=== PATIENT | male | born 1970 | race Caucasian/White ===

== ENCOUNTER → 2016-11-25 | Outpatient (CLI) | payer OTHER ==
[2016-11-25 11:15] LABS: CH 30.5; CHCM 32.7; HCT 50.1 % (39.0-53.0); HDW 2.41; MCV 93.8 fL (80.0-100.0); RBC 5.34 m/uL (4.30-5.90); RDW 14.1 % (11.5-15.5); WBC 5.8 k/uL (3.8-10.6)
[2016-11-25 12:00] LABS: ALT 51 U/L (21-72); AST 29 U/L (17-59); Alkaline Phosphatase 81 U/L (38-126); Anion Gap 12 mmol/L; Blood Urea Nitrogen 18 mg/dL (9-20); C Reactive Protein 15.4 mg/L (<10.0); Calcium 10.2 mg/dL (8.4-10.2); Carbon Dioxide 28 mmol/L (22-30); Chloride 102 mmol/L (98-107); Creatine Kinase 139 U/L (55-170); Glucose 158 mg/dL (74-99); Magnesium 1.7 mg/dL (1.6-2.3); Non-African American GFR(MDRD) >60 (>60 ml/min/1.73 sqM); Potassium 4.4 mmol/L (3.5-5.1); Sodium 142 mmol/L (137-145); Total Bilirubin 0.6 mg/dL (0.2-1.3); Total Protein 7.8 g/dL (6.3-8.2)
[2016-11-25 12:40] LABS: Vitamin B12 647 pg/mL (239-931)
[2016-11-25 13:48] LABS: Erythrocyte Sedimentation Rate 8 mm/hr (0-15)
[2016-11-25 14:01] LABS: Hemoglobin A1C 5.7 % (4.2-6.1)
[2016-11-26 06:08] LABS: Cyclic Citrullinated Pep IgG 10 UNITS (<20)
[2016-11-27 06:44] LABS: Vitamin E (Alpha Tocopherol) 676 ug/dL (500-1800)
[2016-12-04 07:35] LABS: Vitamin K 232 pg/mL (80-1160)
[2016-12-07 10:23] LABS: Mis test requested (Blood) Vitamin B3(Niacin)
== END | disposition home or self-care (01) ==
LOC: LABWHC1 10:38
PROVIDERS: ATTEND Psychiatry & Neurology Pain Medicine
DX: G89.4 Chronic pain syndrome (principal); M79.7 Fibromyalgia; Z79.899 Other long term (current) drug therapy
CPT/HCPCS: 36415; 80053; 82306; 82550; 82607; 83036; 83519; 83735; 84207; 84425; 84446; 84590; 84591; 84597; 85027; 85652; 86140; 86200; 86235

== ENCOUNTER → 2017-11-11 | Outpatient (CLI) | payer OTHER ==
[2017-11-11 15:49] LABS: Basophils # (A) 0.1 k/uL (0-0.2); Basophils % (A) 1 %; Eosinophils # (A) 0.3 k/uL (0-0.7); Eosinophils % (A) 2 %; HCT 42.1 % (39.0-53.0); HGB 13.2 gm/dL (13.0-17.5); Hypochromasia Slight; Lymphocytes # (A) 2.6 k/uL (1.0-4.8); Lymphocytes % (A) 17 %; MCH 28.7 pg (25.0-35.0); MCHC 31.4 g/dL (31.0-37.0); MCV 91.2 fL (80.0-100.0); Mean Platelet Volume 7.1; Monocytes # (A) 0.8 k/uL (0-1.0); Monocytes % (A) 5 %; Neutrophils # (A) 11.2 k/uL (1.3-7.7); Neutrophils % (A) 74 %; Platelet Count 499 k/uL (150-450); RBC 4.62 m/uL (4.30-5.90); RDW 14.2 % (11.5-15.5); WBC 15.2 k/uL (3.8-10.6)
[2017-11-11 16:09] LABS: Potassium 4.5 mmol/L (3.5-5.1)
[2017-11-11 17:24] LABS: Amorphous Sediment,Urine Rare /hpf; Appearance,Urine Cloudy (Clear); Bilirubin,Urine Negative (Negative); Blood,Urine Negative (Negative); Color,Urine Yellow; Glucose,Urine (UA) Negative (Negative); Hyaline Casts,Urine 552 /lpf (0-2); Ketones,Urine Trace (Negative); Leukocyte Esterase,Urine Negative (Negative); Mucus,Urine Rare /hpf; PH, Urine 5.5 (5.0-8.0); Protein,Urine 1+ (Negative); RBC,Urine 4 /hpf (0-5); Specific Gravity,Urine 1.026 (1.001-1.035); Squamous Epithelial Cell,Urine 1 /hpf (0-4); WBC,Urine 8 /hpf (0-5)
== END | disposition home or self-care (01) ==
LOC: LABPAT 15:21
PROVIDERS: ATTEND Thoracic Surgery (Cardiothoracic Vascular Surgery)
DX: Z01.812 Encounter for preprocedural laboratory examination (principal); J86.9 Pyothorax without fistula
CPT/HCPCS: 36415; 80051; 81001; 82565; 84520; 85025; 86850; 86900; 86901

== ENCOUNTER 2017-11-18 06:06 | Inpatient (IN) | payer OTHER ==
[2017-11-17 10:33] VITALS: BMI 31.1
[~2017-11-18 06:06] MED LIST: DEXAMETHASONE SOD PHOSPHATE 10 MG/ML 1 ML VIAL IV ONE; HYDROmorphone 0.5 MG/0.5 ML SYRINGE IVP PRN; LIDOCAINE 1% 20 ML VIAL (10MG/ML) FOR IV START INTRADERMA PRN; MIDAZOLAM 2 MG/2 ML VIAL IV PRN; ONDANSETRON 4 MG/2 ML VIAL IVP ONE; SCOPOLAMINE 1.5MG/72HR PATCH TRANSDERM ONE
[2017-11-18] MEDS: LACTATED RINGERS 1,000 ML IV SCH ×2 (06:52→07:30)
[2017-11-18] MEDS: fentaNYL (PF) 50 MCG/ML 2 ML AMP IV ONE ×2 (07:04→13:14)
[2017-11-18] MEDS ORDERED: MIDAZOLAM 2 MG/2 ML VIAL IV ONE (07:04)
[2017-11-18] MEDS ORDERED: LIDOCAINE 1% 20 ML VIAL (10MG/ML) FOR IV START INTRADERMA ONE (07:23)
[2017-11-18] MEDS ORDERED: NALOXONE 0.4 MG/ML 1 ML VIAL IV PRN (07:26)
[2017-11-18] MEDS ORDERED: LIDOCAINE 1% INJ 10MG/ML (20 ML MDV) ONE (08:01)
[2017-11-18] MEDS ORDERED: GLYCOPYRROLATE 0.2 MG/ML 2 ML VIAL ONE (08:01)
[2017-11-18] MEDS ORDERED: fentaNYL (PF) 50 MCG/ML 2 ML AMP ONE ×2 (08:01)
[2017-11-18] MEDS ORDERED: ETOMIDATE 2 MG/ML 10 ML VIAL ONE (08:01)
[2017-11-18] MEDS ORDERED: NEOSTIGMINE 1 MG/ML 10 ML VIAL ONE (08:01)
[2017-11-18] MEDS ORDERED: SUCCINYLCHOLINE CHLORIDE 100 MG/5 ML SYR IV ONE (08:01)
[2017-11-18] MEDS ORDERED: ROCURONIUM BROMIDE 10 MG/ML 10 ML VIAL IV ONE (08:01)
[2017-11-18] MEDS ORDERED: MIDAZOLAM 2 MG/2 ML VIAL ONE (08:01)
[2017-11-18] MEDS ORDERED: ONDANSETRON 4 MG/2 ML VIAL ONE (08:01)
[2017-11-18] MEDS ORDERED: PROPOFOL 10 MG/ML 20 ML VIAL IV ONE ×2 (08:01)
[2017-11-18] MEDS ORDERED: ePHEDrine SULFATE/0.9% NACL/PF 50 MG/5 ML SYRINGE IV ONE (08:01)
[2017-11-18] MEDS ORDERED: LACTATED RINGERS 1,000 ML IV ONE ×3 (11:37)
[2017-11-18] MEDS ORDERED: BACLOFEN 10 MG TAB PO PRN (12:01)
[2017-11-18] MEDS ORDERED: IPRATROPIUM-ALBUTEROL 3 ML NEB IH PRN (12:03)
[2017-11-18] MEDS ORDERED: ONDANSETRON 4 MG/2 ML VIAL IVP PRN (12:03)
--- NOTE | 2017-11-18 12:22 | P.OP ---
Date of Procedure: 11/18/17 Preoperative Diagnosis: Empyema left chest Postoperative Diagnosis: Same Procedure(s) Performed: Left thoracotomy, complete decortication left lung, cryoablation intercostal nerves 5, 6, 7 and 8 Anesthesia: MARIXAA Surgeon: Wayne Noonan Estimated Blood Loss (ml): 700 IV fluids (ml): 1,600 Urine output (ml): 400 Pathology: other (Pleural fluid sent for culture, pleural peel and pleural content sent for pathology, empyema sent for culture.) Condition: stable Disposition: PACU Indications for Procedure: 47-year-old male who initially got ill in May he has been feeling poorly ever since he has had chronic cough and malaise and fatigue and fever. He was found to have large loculated left pleural effusion consistent with empyema. Workup included CT. Patient was referred for evaluation. Decortication was recommended. The patient was electively admitted for the same. Operative Findings: On entering the pleural space, a large amount of loculated fluid and purulent material was encountered in the chronic empyema space. Was a very thick inflammatory wall surrounding the empyema space. The space itself was quite large. The thick inflammatory wall was densely adherent to the lung and very few good planes could be accomplished between the inflammatory wall and the pulmonary parenchyma. The inflammatory wall was quite fibrous and densely adherent as well to the chest wall and mediastinal tissues. There were adhesions present throughout the pleural space and in the fissures. Excellent reexpansion of the lung was accomplished after complete decortication. Description of Procedure: The patient was brought to the operating room placed supine on the operating table anesthetized and intubated. Double lumen endotracheal tube was placed and positioned with fiberoptic bronchoscopy and secured. Patient was turned into the right lateral decubitus position and the left chest sterilely prepped and draped. Posterior lateral thoracotomy incision was performed. The latissimus muscle was divided and the posterior portion of the serratus anterior muscle was divided. Ribs were counted and the chest was entered in the sixth interspace. On entering the chest we encountered a large amount of very turbid fluid which had large amounts of. 1 material floating within it. We undercut the intercostal muscles anteriorly and posteriorly to allow adequate spreading of the ribs and freed the inflammatory wall of the empyema from the chest wall in order to allow adequate spreading of the ribs. Once we had the chest open we were able to clear out the empyema space of all the fluid and purulent material present within it. We then began the tedious process of resecting the entire empyema wall. This required primarily resection with sharp dissection and electrocautery. We were eventually able to completely resect the empyema wall and get the lower lobe and lingula to reexpand. We then took down the remaining adhesions in the chest cavity in order to allow the lung to be fully mobilized including in the fissures. The lung expanded well and filled the chest well. There went on single lung ventilation and performed cryoablation at intercostal nerves V 67 and 8 with the [employer] ice system. 3 chest tubes were placed in the chest. The anterior chest tube 32 -Mongolian was placed to the apex a posterior 32-Mongolian was placed to the apex and a third chest tube was placed along the diaphragm into the diaphragmatic sulcus is a 32 right angle. Chest tubes were secured with 0 Ethibond. The chest was irrigated out with warm water and the ribs reapproximated with #1 Vicryl. The muscle layers with 0 Vicryl. The subcutaneous and subcuticular layers with layers of Vicryl suture. Dressings were applied the patient was turned supine and extubated and transferred to recovery room in stable condition. Portion of the empyema. 1 material was sent for culture. Some of the empyema fluid was collected and sent for culture. All of the remaining tissue removed from the chest was sent for pathology as pleural peel and left pleural content.
[2017-11-18] MEDS: BUPIVACAINE (PF) 0.5% 31.3 ML, fentaNYL (PF) 1,250 MCG in SODIUM CHLORIDE 0.9% 194 ML EPIDURAL PRN (12:35)
--- NOTE | 2017-11-18 12:49 | XR ---
EXAMINATION TYPE: XR chest 1V DATE OF EXAM: 11/18/2017 COMPARISON: Prior chest dated 10/20/2017, 11/04/2017 HISTORY: Status post VATS TECHNIQUE: Single frontal view of the chest is obtained. FINDINGS: There is been interval placement of 2 left-sided chest tubes. Azygos lobe noted incidental ly in the right. Improvement in the abnormal density at the left lung base. Subcutaneous emphysema is present. No sizable pneumothorax. Lung volumes are low, there is likely basilar atelectasis on the r ight. Heart size is likely stable, patient is rotated. IMPRESSION: Postop changes.
[2017-11-18] MEDS: MORPHINE SULFATE 4 MG/ML SYRINGE IV ONE ×2 (12:56→13:24)
[2017-11-18] MEDS: MEPERIDINE 50 MG/ML SYRINGE IVP ONE ×2 (13:34→13:45)
[2017-11-18] MEDS: DEXTROSE 5%-0.45% NACL 1,000 ML IV SCH (14:51)
--- NOTE | 2017-11-18 15:46 | P.CNPUL ---
History of Present Illness Consult date: 11/18/17 Chief complaint: Empyema, post thoracotomy History of present illness: 47-year-old male patient was recently treated as an inpatient basis for pneumonia and he was treated and his course was complicated by development of a complex parapneumonic effusion/empyema that was loculated in the left lung. The patient was seen in our office and patient was referred to thoracic surgery and the patient underwent a left thoracotomy and complete decortication of the left lung with cryoablation intercostal nerves V 678. Estimated blood loss was 700 mL. IV fluids infused was 1600 mL. The patient had a total of 3 chest tubes inserted to posterior 100. And cultures were sent. An epidural fentanyl with bupivacaine was offered to an epidural catheter for pain control and following that the patient was extubated and the patient was brought in to the medical surgical floor for further evaluation and recuperation. At a time of my evaluation the patient's pain was under good control. He was off these of oxygen nasal cannula. He was hemodynamic is stable. Output from the chest was around 1 20 mL and the posterior chest tubes are showing some limited amount of air leak that was episodic in nature. Meanwhile the chest x-ray showed adequate expansion of the left lung. There is improvement in aeration of the left lung base. Right lung remained clear. The patient is awake and alert and following commands. He has no specific complaints. Intraoperatively, the patient was found to have a large amount of loculated fluid and purulent material and chronic empyema in the left lung. This was very thickened inflammatory and it was adherent to the lung with very few with plans in between the inflammatory wall in the lung parenchyma. Adhesions were also present. Decortication was done and the patient achieved excellent reexpansion of the left lung after complete decortication. Review of Systems All systems: negative Eyes: denies blurred vision, denies bulging eye, denies decreased vision Ears: deny: decreased hearing, ear discharge, earache Ears, nose, mouth and throat: Denies headache, Denies sore throat Cardiovascular: Reports dyspnea on exertion Respiratory: Reports dyspnea Gastrointestinal: Denies abdominal pain, Denies diarrhea, Denies nausea, Denies vomiting Genitourinary: Reports as per HPI Musculoskeletal: Reports as per HPI (Chronic pain related to osteoarthritis and fibromyalgia patient also complains of chronic back pain.), Reports low back pain, Reports myalgias Musculoskeletal: absent: ankle pain, ankle stiffness, ankle swelling Integumentary: Denies pruritus, Denies rash Neurological: Denies numbness, Denies weakness Psychiatric: Denies anxiety, Denies depression Endocrine: Denies fatigue, Denies weight change Allergic/Immunologic: Reports as per HPI Past Medical History Past Medical History: Chest Pain / Angina, Fibromyalgia, Hyperlipidemia, Hypertension, Pneumonia, Respiratory Disorder Additional Past Medical History / Comment(s): Left lung pneumonia/empyema, gout , chronic fibromyalgia, chronic lower back pain, degenerative arthritis, history of degenerative disc disease involving the lumbar spine, hypertension, hyperlipidemia, atrial fibrillation as the patient went into atrial fibrillation during her hospitalization for a left lower lobe pneumonia back in October 2017 and subsequently he converted back to normal sinus. Echocardiogram done preoperatively showed a preserved LV function. He has chronic anxiety. History of Any Multi-Drug Resistant Organisms: None Reported Past Surgical History: Back Surgery, Joint Replacement, Orthopedic Surgery Additional Past Surgical History / Comment(s): rt hip replacement, rt knee replacement, left knee surgery with metal, neck fusion, lower back surgery, traumatic amputation rt index finger, left index finger tip amputation from injury Past Anesthesia/Blood Transfusion Reactions: Blood Transfusion Reaction Additional Past Anesthesia/Blood Transfusion Reaction / Comment(s): pt states some limited neck movement due to previous surgery, " I got degenerative bone disease from a blood transfusion", "I woke up in the middle of knee surgery" Smoking Status: Former smoker - Past Family History Mother Family Medical History: No Reported History Additional Family Medical History / Comment(s): enlarged heart Medications and Allergies Home Medications Medication Instructions Recorded Confirmed Type DULoxetine HCL [Cymbalta] 60 mg PO BID 10/17/17 11/18/17 History Fenofibrate 160 mg PO DAILY 10/17/17 11/18/17 History HYDROcodone/APAP 5-325MG [[place] 1 tab PO BID 10/17/17 11/18/17 History 5-325] Lisinopril-Hctz 20-25 mg 1 tab PO DAILY 10/17/17 11/18/17 History [Zestoretic 20-25] Naproxen [Naprosyn] 500 mg PO BID PRN 10/17/17 11/18/17 History busPIRone HCL 15 mg PO BID 10/17/17 11/18/17 History oxyCODONE ER [OxyCONTIN] 20 mg PO Q12HR 10/17/17 11/18/17 History Aspirin 81 mg PO DAILY chew 10/22/17 11/18/17 Rx Baclofen [Lioresal] 5 mg PO TID PRN #40 tablet 10/22/17 11/18/17 Rx Diltiazem Oral [Cardizem*] 90 mg PO TID #90 tab 10/22/17 11/18/17 Rx Nicotine 14Mg/24Hr Patch [Habitrol] 1 patch TRANSDERM DAILY #30 patch 10/22/17 11/18/17 Rx Pregabalin [Lyrica] 150 mg PO BID #60 cap 10/22/17 11/18/17 Rx risperiDONE 0.5 mg PO TID #21 tablet 10/22/17 11/18/17 Rx Cholecalciferol (Vitamin D3) 2,000 unit PO DAILY 11/17/17 11/18/17 History [Vitamin D3] Ipratropium-Albuterol Nebulize 3 ml INHALATION RT-QID 11/17/17 11/18/17 History [Duoneb 0.5 mg-3 mg/3 ml Soln] guaiFENesin [Mucinex] 1,200 mg PO BID 11/17/17 11/18/17 History Allergies Allergy/AdvReac Type Severity Reaction Status Date / Time No Known Allergies Allergy Verified 11/18/17 12:28 Physical Exam Vitals: Vital Signs Temp Pulse Resp BP Pulse Ox 11/18/17 13:45 88 16 95/43 94 L 11/18/17 13:30 89 16 93/52 94 L 11/18/17 13:15 89 16 89/50 94 L 11/18/17 13:00 90 20 90/50 94 L 11/18/17 12:45 93 18 98/57 95 11/18/17 12:30 95 16 101/44 94 L 11/18/17 12:11 97.6 F 90 23 133/41 96 11/18/17 06:53 97.7 F 84 18 144/74 96 Intake and Output 11/18/17 11/18/17 11/18/17 06:59 14:59 22:59 Intake Total 300 3000 Output Total 1535 Balance 300 1465 Intake: IV 300 2750 Intake, IV Titration 250 Amount Dextrose 5%-0.45% NaCl 1, 200 000 ml @ 40 mls/hr IV . Q24H [facility] Rx#:[id number] ceFAZolin 3 gm In Sodium 50 Chloride 0.9% 50 ml @ 100 mls/hr IVPB Q8HR [facility] Rx# :[id number] Output: Urine 525 Estimated Blood Loss 1010 Head exam was generally normal. There was no scleral icterus or corneal arcus. Mucous membranes were moist.Neck was supple and without jugular venous distension, thyromegaly, or carotid bruits. Carotids were easily palpable bilaterally. There was no adenopathy. Lung sounds are diminished in the left lung compared to the right and the patient's surgical incision site is dry clean and intact and the chest tubes are all in place. 2 posterior one anterior chest tube can be localized attached to the Pleur-evac.Cardiac exam revealed the PMI to be normally situated and sized. The rhythm was regular and no extrasystoles were noted during several minutes of auscultation. The first and second heart sounds were normal and physiologic splitting of the second heart sound was noted. There were no murmurs, rubs, clicks, or gallops.Abdominal exam revealed normal bowel sounds. The abdomen was soft, non- tender, and without masses, organomegaly, or appreciable enlargement of the abdominal aorta.Examination of the extremities revealed easily palpable radial, femoral and pedal pulses. There was no cyanosis, clubbing or edema.Examination of the skin revealed no evidence of significant rashes, suspicious appearing nevi or other concerning lesions. Neurologically patient is awake and alert and there is no focal neurological deficit at this point. The patient also has a epidural catheter for pain control. Results - Diagnostic Findings Chest x-ray: image reviewed Assessment and Plan Plan: Assessment 1 left lung empyema status post thoracotomy and decortication the patient is postop day #0. Patient is currently recovering on the medical surgical floor. Epidural fentanyl bupivacaine for pain control. Hemodynamically stable. 3 chest tubes of the left hemithorax to posterior 1 anterior. No active output. Minimal air leak through the posterior chest tubes 2 recent hospitalization for left lung pneumonia 3 acute hypoxic respiratory failure secondary to left lung empyema and pneumonia 4 chronic pain 5 fibromyalgia 6 degenerative arthritis 7 single bout of atrial fibrillation recovered and the patient's rhythm is back to sinus 8 hypertension 9 hyperlipidemia 10 smoker Plan Continue using incentive spirometer. Pain control with epidural fentanyl with bupivacaine. Proceed with resuming the patient's outpatient medication including his oxycodone 20 mg twice a day. Pain is under good control. Chest x -ray was reviewed and the patient has adequate expansion of the left lung. Chest tubes are in place. Monitor the output. Monitor air leaks. Continue DuoNeb nebulized she was around the clock. IV cefazolin. Intraoperative cultures were sent and antibiotic adjustments will be done if needed should the cultures come back negative. We'll continue to follow.
[2017-11-18] MEDS: DILTIAZEM ORAL 30 MG TAB PO SCH ×2 (15:48→20:36)
[2017-11-18] MEDS: HEPARIN SODIUM,PORCINE 5,000 UNIT/ML 1 ML VIAL SQ SCH ×2 (15:49→22:52)
[2017-11-18] MEDS: risperiDONE 0.5 MG TAB PO SCH ×2 (15:49→20:37)
[2017-11-18] MEDS ORDERED: IPRATROPIUM-ALBUTEROL 3 ML NEB IH SCH (16:00)
[2017-11-18] MEDS: IPRATROPIUM-ALBUTEROL 3 ML NEB INHALATION SCH ×3 (16:02→19:18)
[2017-11-18] MEDS: MORPHINE SULFATE 4 MG/ML SYRINGE IVP PRN ×2 (17:02→22:49)
[2017-11-18] MEDS: guaiFENesin 600 MG TABLET.ER PO SCH (20:35)
[2017-11-18] MEDS: DULoxetine HCL 60 MG CAPSULE.DR PO SCH (20:35)
[2017-11-18] MEDS: busPIRone HCl 5 MG TAB PO SCH (20:35)
[2017-11-18] MEDS: PREGABALIN 75 MG CAP PO SCH (20:36)
[2017-11-18] MEDS: oxyCODONE ER 20 MG TAB.ER.12H PO SCH (20:36)
[2017-11-19 06:53] LABS: Calcium 8.5 mg/dL (8.4-10.2); Potassium 4.7 mmol/L (3.5-5.1); Total Bilirubin 0.4 mg/dL (0.2-1.3); Total Protein 5.9 g/dL (6.3-8.2)
[2017-11-19 07:06] LABS: Basophils % (A) 0 %; Eosinophils % (A) 0 %; HCT 32.3 % (39.0-53.0); HGB 10.8 gm/dL (13.0-17.5); Lymphocytes # (A) 1.6 k/uL (1.0-4.8); Lymphocytes % (A) 10 %; MCH 29.1 pg (25.0-35.0); MCHC 33.4 g/dL (31.0-37.0); MCV 87.2 fL (80.0-100.0); Mean Platelet Volume 7.9; Monocytes # (A) 0.9 k/uL (0-1.0); Monocytes % (A) 5 %; Neutrophils # (A) 13.9 k/uL (1.3-7.7); Neutrophils % (A) 83 %; Platelet Count 353 k/uL (150-450); RBC 3.71 m/uL (4.30-5.90); RDW 14.7 % (11.5-15.5); WBC 16.7 k/uL (3.8-10.6)
[2017-11-19] MEDS: NICOTINE 14MG/24HR PATCH TRANSDERM SCH (07:46)
[2017-11-19] MEDS: guaiFENesin 600 MG TABLET.ER PO SCH ×2 (07:47→21:06)
[2017-11-19] MEDS: DILTIAZEM ORAL 30 MG TAB PO SCH ×3 (07:48→22:52)
[2017-11-19] MEDS: risperiDONE 0.5 MG TAB PO SCH ×3 (07:49→22:52)
[2017-11-19] MEDS: HEPARIN SODIUM,PORCINE 5,000 UNIT/ML 1 ML VIAL SQ SCH ×3 (07:49→22:52)
[2017-11-19] MEDS: busPIRone HCl 5 MG TAB PO SCH ×2 (07:49→21:05)
[2017-11-19] MEDS: CHOLECALCIFEROL 1,000 UNIT TAB PO SCH (07:49)
[2017-11-19] MEDS: ASPIRIN 81 MG PO SCH (07:50)
[2017-11-19] MEDS: DULoxetine HCL 60 MG CAPSULE.DR PO SCH ×2 (07:50→21:06)
[2017-11-19] MEDS: FENOFIBRATE 160 MG TAB PO SCH (07:50)
[2017-11-19] MEDS: PREGABALIN 75 MG CAP PO SCH ×2 (07:57→21:07)
[2017-11-19] MEDS: MORPHINE SULFATE 4 MG/ML SYRINGE IVP PRN ×4 (07:57→22:54)
--- NOTE | 2017-11-19 08:22 | XR ---
EXAMINATION TYPE: XR chest 1V DATE OF EXAM: 11/19/2017 COMPARISON: Prior chest x-ray 11/18/2017 HISTORY: Post VATS with chest tube TECHNIQUE: Single frontal view of the chest is obtained. FINDINGS: Patient is rotated. Left-sided chest tubes remain in place. Subcutaneous emphysema is note d. Patchy basilar density is noted on the right and left. Heart size is stable. IMPRESSION: Postprocedural findings, atelectasis, possible small effusion. No significant interval c hange. Rotated exam.
[2017-11-19] MEDS: oxyCODONE ER 20 MG TAB.ER.12H PO SCH ×2 (08:58→21:07)
[2017-11-19] MEDS: BUPIVACAINE (PF) 0.5% 31.3 ML, fentaNYL (PF) 1,250 MCG in SODIUM CHLORIDE 0.9% 194 ML EPIDURAL PRN (08:59)
[2017-11-19] MEDS ORDERED: LISINOPRIL-HCTZ 20-25 MG 1 EACH TAB PO SCH (09:00)
--- NOTE | 2017-11-19 09:12 | P.PN ---
Progress Note - Text 11/19 720am 47-year-old male status post thoracotomy by Dr. Noonan. Postop day #1 patient has epidural solution running at 10 mL an hour, VAS score of 4 at rest. No motor or sensory weakness. Continue epidural infusion
[2017-11-19] MEDS: IPRATROPIUM-ALBUTEROL 3 ML NEB INHALATION SCH ×4 (09:14→20:54)
[2017-11-19] MEDS: DEXTROSE 5%-0.45% NACL 1,000 ML IV SCH (12:33)
--- NOTE | 2017-11-19 12:51 | P.PN ---
Subjective Progress Note Date: 11/19/17 Principal diagnosis: Empyema left chest, hypertension, hyperlipidemia, recent left lung pneumonia, chronic fibromyalgia, gout, degenerative arthritis, degenerative disc disease involving the lumbar spine, history of paroxysmal atrial fibrillation, history of nicotine dependence and chronic anxiety. POD #1 Left thoracotomy, complete decortication left lung, cryoablation intercostal nerves 5, 6, 7 and 8. The patient is laying in bed with his head elevated. He is in no acute distress. He is alert and oriented 3. He is complaining of left chest pain where his chest tubes are inserted. He rates his pain currently 9 or 10 out of 10 on the pain scale. His epidural is intact and currently running at 10 mL per hour. Oxygen saturation are 95% on 2 L nasal cannula. He is using his incentive spirometry and is achieving 1500 mL with encouragement. Objective - Vital Signs Vital signs: Vital Signs Temp 97.6 F 11/19/17 11:32 Pulse 88 11/19/17 11:33 Resp 20 11/19/17 11:33 BP 117/55 11/19/17 11:32 Pulse Ox 95 11/19/17 11:32 Intake & Output 11/18/17 11/19/17 11/19/17 18:59 06:59 18:59 Intake Total 3529.533 774.1 384.367 Output Total 1535 799 335 Balance 1994.533 -24.9 49.367 Weight 132 kg Intake: IV 2750 640 Dextrose 5%-0.45% NaCl 1, 640 000 ml @ 40 mls/hr IV . Q24H [facility] Rx#:[id number] Intake, IV Titration 291.533 134.1 24.367 Amount Bupivacaine (Pf) 0.5% 31. 41.533 134.1 24.367 3 ml fentaNYL (PF) 1,250 mcg In Sodium Chloride 0. 9% 194 ml @ Per Protocol EPIDURAL .Q0M PRN Rx#: [id number] Dextrose 5%-0.45% NaCl 1, 200 000 ml @ 40 mls/hr IV . Q24H [facility] Rx#:[id number] ceFAZolin 3 gm In Sodium 50 Chloride 0.9% 50 ml @ 100 mls/hr IVPB Q8HR [facility] Rx# :[id number] Oral 488 360 Output: Chest Tube Drainage 199 10 Left Anterior Chest 97 10 Left Posterior Chest 102 0 Urine 525 600 325 Uretheral (Gamez) 325 Estimated Blood Loss 1010 Other: Voiding Method Indwelling Catheter Indwelling Catheter Urinal - Constitutional General appearance: Present: cooperative, no acute distress, obese - EENT ENT: Present: hearing grossly normal - Neck Details: Neck is supple, no JVD or lymphadenopathy. - Respiratory Details: Lung sounds are essentially clear to his right lobes, diminished to his left lobes. Respirations are symmetrical and nonlabored. Left pleural chest tubes intact to low continuous wall suction once 20 cm H2O. Draining thin serosanguineous drainage. Anterior chest tube without air leak, posterior chest tubes with air leak present. Anterior chest tube drained 65 mL output in the last 8 hours, 450 mL since surgery. Posterior chest tubes drained 40 mL in the last 8 hours, and 190 mL output since surgery. He is achieving 1500 mL on his incentive spirometry with encouragement. - Cardiovascular Details: Regular rhythm and rate. S1 and S2 present, negative for S3, gallop or murmur. Remote telemetry showing normal sinus rhythm heart rate 83. No edema present. Knee-high sequential compression devices in place to his bilateral lower extremities. - Gastrointestinal Gastrointestinal Comment(s): Abdomen is soft, nontender and nondistended. Obese. Tolerating oral intake. Active bowel sounds all 4 abdominal quadrants. - Genitourinary Genitourinary Comment(s): Gamez catheter for accurate I&O. Clear farhat urine. 725 mL output in the last 8 hours. - Integumentary Integumentary Comment(s): Skin is warm, and dry. No clubbing or cyanosis. Left lateral chest incision clean dry and well approximated. No drainage present. Dressings clean and dry. Epidural dressing clean and dry. - Neurologic Neurologic Comment(s): Epidural site clean and dry. No motor or sensory weakness present. Neurologic: Present: CNII-XII intact - Musculoskeletal Musculoskeletal: Present: strength equal bilaterally - Psychiatric Psychiatric: Present: A&O x's 3, appropriate affect, intact judgment & insight - Allied health notes Allied health notes reviewed: nursing - Labs CBC & Chem 7: 11/19/17 05:22 11/19/17 05:22 Labs: Abnormal Lab Results - Last 24 Hours (Table) 11/19/17 11/19/17 Range/Units 05:22 05:22 WBC 16.7 H (3.8-10.6) k/uL RBC 3.71 L (4.30-5.90) m/uL Hgb 10.8 L (13.0-17.5) gm/dL Hct 32.3 L (39.0-53.0) % Neutrophils # 13.9 H (1.3-7.7) k/uL Sodium 135 L (137-145) mmol/L BUN 42 H (9-20) mg/dL Creatinine 1.82 H (0.66-1.25) mg/dL Glucose 118 H (74-99) mg/dL Total Protein 5.9 L (6.3-8.2) g/dL Albumin 3.0 L (3.5-5.0) g/dL Microbiology - Last 24 Hours (Table) 11/18/17 11:30 Gram Stain - Preliminary Pleural Fluid Body Fluid Culture - Preliminary 11/18/17 09:02 Gram Stain - Preliminary Lung - Left Tissue Culture - Preliminary 11/18/17 11:30 Fungal Culture - Preliminary Pleural Fluid 11/18/17 11:30 Anaerobic Culture - Preliminary Pleural Fluid 11/18/17 09:02 Anaerobic Culture - Preliminary Lung - Left - Imaging and Cardiology Chest x-ray: report reviewed, image reviewed Assessment and Plan (1) Fibromyalgia Current Visit: Yes Status: Acute Code(s): M79.7 - FIBROMYALGIA SNOMED Code (s): 419815045 (2) Chronic pain Current Visit: Yes Status: Acute Code(s): G89.29 - OTHER CHRONIC PAIN SNOMED Code(s): 71333077 (3) Degenerative arthritis Current Visit: Yes Status: Acute Code(s): M19.90 - UNSPECIFIED OSTEOARTHRITIS, UNSPECIFIED SITE SNOMED Code(s): 268189220 (4) History of atrial fibrillation Current Visit: Yes Status: Acute Code(s): Z86.79 - PERSONAL HISTORY OF OTHER DISEASES OF THE CIRCULATORY SYSTEM SNOMED Code(s): 518556731 (5) Hypertension Current Visit: Yes Status: Acute Code(s): I10 - ESSENTIAL (PRIMARY) HYPERTENSION SNOMED Code(s): 14638176 (6) Hyperlipidemia Current Visit: Yes Status: Acute Code(s): E78.5 - HYPERLIPIDEMIA, UNSPECIFIED SNOMED Code(s): 25479267 (7) History of pneumonia Current Visit: Yes Status: Acute Code(s): Z87.01 - PERSONAL HISTORY OF PNEUMONIA (RECURRENT) SNOMED Code(s): 132176554 (8) Empyema, left Current Visit: Yes Status: Acute Code(s): J86.9 - PYOTHORAX WITHOUT FISTULA SNOMED Code(s): 78929148 (9) Elevated serum creatinine Current Visit: Yes Status: Acute Code(s): R79.89 - OTHER SPECIFIED ABNORMAL FINDINGS OF BLOOD CHEMISTRY SNOMED Code(s): 292589954 Plan: 1. Pain control per when necessary orders and epidural management per anesthesia recommendations. 2. Medical management per Dr. Chiu. 3. Encourage use of his incentive spirometry every hour while awake. 4. Pulmonary recommendations per Dr. Abel. 5. Wean oxygen as tolerated to keep oxygen saturations greater than or equal to 91%. 6. Keep left pleural chest tubes to low continuous wall suction today at -20 cm H2O. Continue to record accurate I&O's. 7. DVT and GI prophylaxis. 8. We will monitor daily labs and chest x-rays. 9. Surgical specimen pathology results pending. 10. Increase activity as tolerated, physical therapy consulted. 11. More recommendations to follow as patient progresses in his care. Time with Patient: Greater than 30
[2017-11-19] MEDS: LACTATED RINGERS 1,000 ML IV SCH ×2 (16:23→22:58)
--- NOTE | 2017-11-19 17:00 | CONS ---
CONSULTATION DATE OF CONSULTATION: 11/19/2017 REASON FOR CONSULTATION: Medical management requested by Dr. Noonan. CONSULTATION: This is a 47-year-old patient who was here in the hospital and discharged on October 22. The patient at that time was admitted with left lower lobe pneumonia and also had an effusion. Patient was seen by Dr. Gaston on that admission. The patient was offered a chest tube, but the patient declined the same. The patient did follow up in the office and was seen by Beth Hsu NP. The patient continued to bring up sputum. The patient was found to have a large empyema and subsequently has now undergone decortication with a chest tube in place. The patient's other chronic stable medical conditions include atrial fibrillation, fibromyalgia, hypertension. The patient also has chronic pain syndrome, for which he takes pain medications. REVIEW OF SYSTEMS: CONSTITUTIONAL: Tired. HEENT: None. RESPIRATORY: Short of breath, cough. Some yellow-green sputum production. CARDIOVASCULAR: None. GASTROINTESTINAL: None. GENITOURINARY: None. MUSCULOSKELETAL: Chronic pain in different joints. DERMATOLOGICAL: None. HEMATOLOGICAL: None. LYMPHATICS: None. PSYCHIATRY: None. NEUROLOGICAL: None. PAST MEDICAL HISTORY: 1. Fibromyalgia. 2. COPD. 3. Atrial fibrillation. 4. Chronic pain syndrome. 5. Essential hypertension. PAST SURGICAL HISTORY: 1. Back surgery. 2. Bilateral knee surgery. 3. Left hip surgery. 4. Right shoulder surgery. SOCIAL HISTORY: Lives with his mother. Smoking a pack a day for many years. Denies alcohol. Not employed. FAMILY HISTORY: Enlarged heart. HOME MEDICATIONS: 1. Risperdal 0.5 mg p.o. t.i.d. 2. OxyContin 20 mg p.o. q.12. 3. Mucinex 1200 mg p.o. b.i.d. 4. Buspirone 50 mg p.o. b.i.d. 5. Lyrica 150 mg p.o. b.i.d. 6. Nicotine 14 mg patch. 7. Naproxen 500 mg p.o. b.i.d. p.r.n. 8. Zestoretic 20/25 one tablet p.o. daily. 9. DuoNeb q.i.d. 10.Hart[place] 5 one tablet b.i.d. 11.Tricor 160 mg p.o. daily. 12.Cardizem 90 mg t.i.d. 13.Cymbalta 60 mg p.o. b.i.d. 14.Vitamin D3 2000 units p.o. daily. 15.Baclofen 5 mg p.o. t.i.d. p.r.n. 16.Aspirin 81 mg p.o. daily. ALLERGIES: NONE. PHYSICAL EXAMINATION: Temperature 97.6, pulse 80, respiration 20, blood pressure 117/55, pulse ox 95% on 2 L. GENERAL APPEARANCE: Well built, BMI 36. Lying in bed. Anxious-appearing. EYES: Pupils equal. Conjunctivae normal. HEENT: External appearance of nose and ears normal. Oral cavity normal. NECK: JVD unable to assess. Mass not palpable. RESPIRATORY: Effort increased. LUNGS: Diminished breath sounds. Prolonged expiration. Chest tube in the left side. CARDIOVASCULAR: Heart sounds irregular. There is no edema. ABDOMEN: Soft, nontender. Liver and spleen not palpable. LYMPHATIC: No lymph node palpable in neck or axillae. PSYCHIATRY: Alert, oriented x3. Mood and affect normal. NEUROLOGICAL: Pupils equal. Cranial nerves grossly intact. Power and sensation grossly intact. INVESTIGATIONS: White count 16.7, hemoglobin 10.8, potassium 4.7. BUN 42, creatinine 1.82. Patient's BUN and creatinine on 10/20/2017 were 33 and 1.0 and on 11/11/2017 they were 20 and 1.70. ASSESSMENT: 1. Left lung decortication secondary to empyema. 2. Chronic obstructive pulmonary disease in a smoker. 3. Persistent atrial fibrillation. 4. Chronic fibromyalgia. 5. Obesity; body mass index greater than 35. 6. Chronic pain syndrome. 7. Essential hypertension. 8. Acute renal failure. Patient's creatinine was down to 1 on 10/20/2017 and has now gone up. This could be a contribution from prerenal, and patient is also on PHYLLIS inhibitor and diuretic. 9. Hypoalbuminemia as an acute phase reactant. PLAN: The patient will be started on IV fluids. Will hold off patient's Zestoretic for right now. Other home medications are resumed. The patient is on pain medications. Eventually patient should be able to go back to his home pain medications. This was discussed with the patient. In the meantime, patient is getting his DuoNeb and other medications. Thank you, Dr. Noonan. HERRERA / RICK: [id number] /
--- NOTE | 2017-11-19 17:21 | P.PN ---
Subjective Progress Note Date: 11/19/17 47-year-old male patient was recently treated as an inpatient basis for pneumonia and he was treated and his course was complicated by development of a complex parapneumonic effusion/empyema that was loculated in the left lung. The patient was seen in our office and patient was referred to thoracic surgery and the patient underwent a left thoracotomy and complete decortication of the left lung with cryoablation intercostal nerves V 678. Estimated blood loss was 700 mL. IV fluids infused was 1600 mL. The patient had a total of 3 chest tubes inserted to posterior 100. And cultures were sent. An epidural fentanyl with bupivacaine was offered to an epidural catheter for pain control and following that the patient was extubated and the patient was brought in to the medical surgical floor for further evaluation and recuperation. At a time of my evaluation the patient's pain was under good control. He was off these of oxygen nasal cannula. He was hemodynamic is stable. Output from the chest was around 1 20 mL and the posterior chest tubes are showing some limited amount of air leak that was episodic in nature. Meanwhile the chest x-ray showed adequate expansion of the left lung. There is improvement in aeration of the left lung base. Right lung remained clear. The patient is awake and alert and following commands. He has no specific complaints. Intraoperatively, the patient was found to have a large amount of loculated fluid and purulent material and chronic empyema in the left lung. This was very thickened inflammatory and it was adherent to the lung with very few with plans in between the inflammatory wall in the lung parenchyma. Adhesions were also present. Decortication was done and the patient achieved excellent reexpansion of the left lung after complete decortication. On 11/19/2017 I'm seeing this patient for a follow-up. He is doing well and better than yesterday. His epidural Dilaudid and bupivacaine dose was increased. The patient's pain is under better control for now. Pulling approximately 1500 on the incentive spirometer. There is still some air leak in the posterior chest tubes. The chest x-ray from today shows no interval change and there is a small left-sided pleural effusion. Chest tubes are in good location. The patient is postop day #1. The patient is doing well. As for the chest tubes, the anterior chest tube is draining around 65 ML's over the past 8 hours and for 50 since surgery. The posterior chest tubes have drained 40 a month over the past 8 hour, 190s since surgery. Objective - Vital Signs Vital signs: Vital Signs Temp 96.9 F L 11/19/17 14:57 Pulse 94 11/19/17 16:51 Resp 16 11/19/17 16:51 BP 122/64 11/19/17 14:57 Pulse Ox 97 11/19/17 16:41 Intake & Output 11/18/17 11/19/17 11/19/17 18:59 06:59 18:59 Intake Total 3529.533 774.1 1138.167 Output Total 3889 950 0166 Balance 1994.533 -24.9 -396.833 Weight 132 kg Intake: IV 2750 640 Dextrose 5%-0.45% NaCl 1, 640 000 ml @ 40 mls/hr IV . Q24H [facility] Rx#:[id number] Intake, IV Titration 291.533 134.1 418.167 Amount Bupivacaine (Pf) 0.5% 31. 41.533 134.1 58.167 3 ml fentaNYL (PF) 1,250 mcg In Sodium Chloride 0. 9% 194 ml @ Per Protocol EPIDURAL .Q0M PRN Rx#: [id number] Dextrose 5%-0.45% NaCl 1, 200 360 000 ml @ 40 mls/hr IV . Q24H [facility] Rx#:[id number] ceFAZolin 3 gm In Sodium 50 Chloride 0.9% 50 ml @ 100 mls/hr IVPB Q8HR [facility] Rx# :[id number] Oral 488 720 Output: Chest Tube Drainage 199 110 Left Anterior Chest 97 60 Left Posterior Chest 102 50 Urine 682 643 0660 Uretheral (Gamez) 325 Estimated Blood Loss 1010 Other: Voiding Method Indwelling Catheter Indwelling Catheter Urinal # Voids 1 - Exam Head exam was generally normal. There was no scleral icterus or corneal arcus. Mucous membranes were moist.Neck was supple and without jugular venous distension, thyromegaly, or carotid bruits. Carotids were easily palpable bilaterally. There was no adenopathy. Lung sounds are diminished in the left lung compared to the right and the patient's surgical incision site is dry clean and intact and the chest tubes are all in place. 2 posterior one anterior chest tube can be localized attached to the Pleur-evac.Cardiac exam revealed the PMI to be normally situated and sized. The rhythm was regular and no extrasystoles were noted during several minutes of auscultation. The first and second heart sounds were normal and physiologic splitting of the second heart sound was noted. There were no murmurs, rubs, clicks, or gallops.Abdominal exam revealed normal bowel sounds. The abdomen was soft, non- tender, and without masses, organomegaly, or appreciable enlargement of the abdominal aorta.Examination of the extremities revealed easily palpable radial, femoral and pedal pulses. There was no cyanosis, clubbing or edema.Examination of the skin revealed no evidence of significant rashes, suspicious appearing nevi or other concerning lesions. Neurologically patient is awake and alert and there is no focal neurological deficit at this point. The patient also has a epidural catheter for pain control. - Labs CBC & Chem 7: 11/19/17 05:22 11/19/17 05:22 Labs: Abnormal Lab Results - Last 24 Hours (Table) 11/19/17 11/19/17 Range/Units 05:22 05:22 WBC 16.7 H (3.8-10.6) k/uL RBC 3.71 L (4.30-5.90) m/uL Hgb 10.8 L (13.0-17.5) gm/dL Hct 32.3 L (39.0-53.0) % Neutrophils # 13.9 H (1.3-7.7) k/uL Sodium 135 L (137-145) mmol/L BUN 42 H (9-20) mg/dL Creatinine 1.82 H (0.66-1.25) mg/dL Glucose 118 H (74-99) mg/dL Total Protein 5.9 L (6.3-8.2) g/dL Albumin 3.0 L (3.5-5.0) g/dL Microbiology - Last 24 Hours (Table) 11/18/17 11:30 Gram Stain - Preliminary Pleural Fluid Body Fluid Culture - Preliminary 11/18/17 09:02 Gram Stain - Preliminary Lung - Left Tissue Culture - Preliminary 11/18/17 11:30 Fungal Culture - Preliminary Pleural Fluid 11/18/17 11:30 Anaerobic Culture - Preliminary Pleural Fluid 11/18/17 09:02 Anaerobic Culture - Preliminary Lung - Left Assessment and Plan Plan: Assessment 1 left lung empyema status post thoracotomy and decortication the patient is postop day #1. Patient is currently recovering on the medical surgical floor. Epidural fentanyl bupivacaine for pain control. Hemodynamically stable. 3 chest tubes of the left hemithorax to posterior 1 anterior. The output from the chest tubes have been noted. The chest tube In place. Chest x-ray shows stable findings compared to yesterday. Pain is under good control.. Minimal air leak through the posterior chest tubes 2 recent hospitalization for left lung pneumonia 3 acute hypoxic respiratory failure secondary to left lung empyema and pneumonia 4 chronic pain 5 fibromyalgia 6 degenerative arthritis 7 single bout of atrial fibrillation recovered and the patient's rhythm is back to sinus 8 hypertension 9 hyperlipidemia 10 smoker Plan Continue using incentive spirometer. Pain control with epidural fentanyl with bupivacaine. Daily chest x-ray. Current rhythm is sinus. Hemodynamically stable. Pulse oxing 91% on 2 L of oxygen nasal cannula. Keep the rest of the supportive care will continue to follow. Blood work from today shows a white cell count of 16.7. The creatinine is up to 1.8 which is comparable to the previous value from early November 2017. We'll continue monitoring the renal function. We'll continue to follow.
[2017-11-20] MEDS: BUPIVACAINE (PF) 0.5% 31.3 ML, fentaNYL (PF) 1,250 MCG in SODIUM CHLORIDE 0.9% 194 ML EPIDURAL PRN ×2 (02:49→23:15)
[2017-11-20] MEDS: MORPHINE SULFATE 4 MG/ML SYRINGE IVP PRN ×6 (02:58→23:19)
[2017-11-20 06:57] LABS: Basophils # (A) 0.1 k/uL (0-0.2); Basophils % (A) 0 %; Eosinophils # (A) 0.2 k/uL (0-0.7); Eosinophils % (A) 1 %; HGB 9.5 gm/dL (13.0-17.5); Lymphocytes # (A) 2.3 k/uL (1.0-4.8); Lymphocytes % (A) 15 %; MCH 28.5 pg (25.0-35.0); MCHC 32.6 g/dL (31.0-37.0); MCV 87.2 fL (80.0-100.0); Mean Platelet Volume 8.3; Monocytes # (A) 0.9 k/uL (0-1.0); Monocytes % (A) 6 %; Neutrophils # (A) 11.7 k/uL (1.3-7.7); Neutrophils % (A) 76 %; Platelet Count 323 k/uL (150-450); RBC 3.32 m/uL (4.30-5.90); WBC 15.4 k/uL (3.8-10.6)
[2017-11-20 07:29] LABS: Albumin 2.8 g/dL (3.5-5.0); Calcium 8.9 mg/dL (8.4-10.2); Total Bilirubin 0.5 mg/dL (0.2-1.3); Total Protein 5.6 g/dL (6.3-8.2)
--- NOTE | 2017-11-20 07:32 | XR ---
EXAMINATION TYPE: XR chest 1V DATE OF EXAM: 11/20/2017 CLINICAL HISTORY: Difficulty breathing progress study. Post VATS. TECHNIQUE: Single AP portable frontal view of the chest is obtained. COMPARISON: Chest x-ray from one day earlier and older studies. CT chest October 21, 2017. FINDINGS: There is persistent mediastinal drainage catheter and left lateral apical chest tube. Ther e is third drainage catheter epigastric region redemonstrated. There is interval improvement in not l ayering left-sided pleural fluid collection after surgical procedure. There is adjacent subcutaneous emphysema left lateral chest wall into left neck redemonstrated. There is background of chronic emphysematous change with azygos lobe/fissure. There is persistent sta ble right basilar horizontal atelectasis and/or infiltrate. There is persistent left mid to lower scotty g opacity consistent with atelectasis and/or infiltrate. Cardiac silhouette size is stable and within normal limits. Osseous structures are intact. IMPRESSION: Overall stable findings, mediastinal drainage catheter and left apical chest tube witho ut sizable pneumothorax. Adjacent subcutaneous emphysema. Chronic emphysematous change with persisten t right basilar atelectasis and more prominent diffuse left mid to lower lung atelectasis and/or infi ltrate all redemonstrated.
[2017-11-20] MEDS: HEPARIN SODIUM,PORCINE 5,000 UNIT/ML 1 ML VIAL SQ SCH ×3 (07:44→22:00)
[2017-11-20] MEDS: ASPIRIN 81 MG PO SCH (07:45)
[2017-11-20] MEDS: busPIRone HCl 5 MG TAB PO SCH ×2 (07:45→21:32)
[2017-11-20] MEDS: CHOLECALCIFEROL 1,000 UNIT TAB PO SCH (07:45)
[2017-11-20] MEDS: PREGABALIN 75 MG CAP PO SCH ×2 (07:48→21:33)
[2017-11-20] MEDS: guaiFENesin 600 MG TABLET.ER PO SCH ×2 (07:48→21:32)
[2017-11-20] MEDS: NICOTINE 14MG/24HR PATCH TRANSDERM SCH (07:48)
[2017-11-20] MEDS: FENOFIBRATE 160 MG TAB PO SCH (07:48)
[2017-11-20] MEDS: risperiDONE 0.5 MG TAB PO SCH ×3 (07:49→21:33)
[2017-11-20] MEDS: IPRATROPIUM-ALBUTEROL 3 ML NEB INHALATION SCH ×4 (08:06→20:08)
[2017-11-20] MEDS: oxyCODONE ER 20 MG TAB.ER.12H PO SCH ×2 (08:44→21:32)
[2017-11-20] MEDS: DILTIAZEM ORAL 30 MG TAB PO SCH ×3 (08:45→21:33)
[2017-11-20] MEDS: DULoxetine HCL 60 MG CAPSULE.DR PO SCH ×2 (08:45→22:01)
[2017-11-20] MEDS: LACTATED RINGERS 1,000 ML IV SCH ×2 (12:07→15:49)
--- NOTE | 2017-11-20 12:25 | P.PN ---
Subjective Progress Note Date: 11/20/17 Principal diagnosis: Empyema left chest. History of hypertension, hyperlipidemia, recent left lung pneumonia, chronic fibromyalgia, gout, degenerative arthritis, degenerative disc disease involving the lumbar spine, history of paroxysmal atrial fibrillation, history of nicotine dependence, and chronic anxiety. Chronic pain syndrome POD #2 left thoracotomy, complete decortication left lung, cryoablation intercostal nerves 5, 6, 7 and 8. The patient is currently lying in bed in no acute distress. Complains of pain at the chest tube insertion site despite epidural and breakthrough pain medication. Objective - Vital Signs Vital signs: Vital Signs Temp 96.6 F L 11/20/17 11:26 Pulse 88 11/20/17 11:57 Resp 18 11/20/17 11:26 BP 121/62 11/20/17 11:26 Pulse Ox 91 L 11/20/17 11:26 Intake & Output 11/19/17 11/20/17 11/20/17 18:59 06:59 18:59 Intake Total 6539.207 8064.75 320 Output Total 1935 510 300 Balance -316.833 646.75 20 Weight 146.5 kg Intake: Intake, IV Titration 461.477 3271.75 Amount Bupivacaine (Pf) 0.5% 31. 58.167 156.75 3 ml fentaNYL (PF) 1,250 mcg In Sodium Chloride 0. 9% 194 ml @ Per Protocol EPIDURAL .Q0M PRN Rx#: [id number] Dextrose 5%-0.45% NaCl 1, 360 000 ml @ 40 mls/hr IV . Q24H [facility] Rx#:[id number] Lactated Ringers 1,000 ml 1000 @ 125 mls/hr IV .Q8H [facility] Rx#:[id number] Oral 1200 320 Output: Chest Tube Drainage 110 110 Left Anterior Chest 60 60 Left Posterior Chest 50 50 Urine 1825 400 300 Uretheral (Gamez) 325 Other: Voiding Method Urinal Urinal Urinal # Voids 1 - Constitutional General appearance: Present: cooperative, no acute distress, obese - Respiratory Details: Lungs sounds diminished bilaterally, left greater than right. Respirations even , nonlabored. Currently on room air with oxygen saturation 91%. Able to achieve 1250 mL on his incentive spirometry. Anterior and posterior left-sided chest tubes placed to waterseal this morning. Left anterior chest tube with 60 mL thin serosanguineous drainage overnight, 200 mL last 24 hours. Left posterior chest tube with 50 mL of thin serosanguineous drainage overnight, 180 mL the last 24 hours. Positive air leak present in the posterior chest tube. - Cardiovascular Details: S1, S2 present. Regular rate and rhythm, sinus rhythm on telemetry. Palpable peripheral pulses bilaterally. No edema present. No calf pain or tenderness noted. SCDs present. - Gastrointestinal Gastrointestinal Comment(s): Abdomen soft, nontender, nondistended. Active bowel sounds 4 quadrants. Tolerating diet. - Genitourinary Genitourinary Comment(s): Voiding clear, yellow urine. - Integumentary Integumentary Comment(s): Skin is warm and dry with evidence of good perfusion. - Neurologic Neurologic: Present: CNII-XII intact - Musculoskeletal Musculoskeletal: Present: strength equal bilaterally - Psychiatric Psychiatric: Present: A&O x's 3, appropriate affect, intact judgment & insight - Allied health notes Allied health notes reviewed: nursing - Labs CBC & Chem 7: 11/20/17 06:05 11/20/17 06:05 Labs: Abnormal Lab Results - Last 24 Hours (Table) 11/20/17 11/20/17 Range/Units 06:05 06:05 WBC 15.4 H (3.8-10.6) k/uL RBC 3.32 L (4.30-5.90) m/uL Hgb 9.5 L (13.0-17.5) gm/dL Hct 29.0 L (39.0-53.0) % Neutrophils # 11.7 H (1.3-7.7) k/uL Sodium 134 L (137-145) mmol/L BUN 53 H (9-20) mg/dL Creatinine 2.14 H (0.66-1.25) mg/dL Glucose 107 H (74-99) mg/dL ALT 20 L (21-72) U/L Total Protein 5.6 L (6.3-8.2) g/dL Albumin 2.8 L (3.5-5.0) g/dL Microbiology - Last 24 Hours (Table) 11/18/17 09:02 Gram Stain - Preliminary Lung - Left Tissue Culture - Preliminary 11/18/17 11:30 Gram Stain - Preliminary Pleural Fluid Body Fluid Culture - Preliminary - Imaging and Cardiology Chest x-ray: report reviewed, image reviewed Assessment and Plan (1) Chronic pain Current Visit: Yes Status: Chronic Code(s): G89.29 - OTHER CHRONIC PAIN SNOMED Code(s): 95972684 (2) Degenerative arthritis Current Visit: Yes Status: Chronic Code(s): M19.90 - UNSPECIFIED OSTEOARTHRITIS, UNSPECIFIED SITE SNOMED Code(s): 979397949 (3) Elevated serum creatinine Current Visit: Yes Status: Acute Code(s): R79.89 - OTHER SPECIFIED ABNORMAL FINDINGS OF BLOOD CHEMISTRY SNOMED Code(s): 333400961 (4) Empyema, left Current Visit: Yes Status: Chronic Code(s): J86.9 - PYOTHORAX WITHOUT FISTULA SNOMED Code(s): 14421781 (5) Fibromyalgia Current Visit: Yes Status: Chronic Code(s): M79.7 - FIBROMYALGIA SNOMED Code(s): 811230642 (6) History of atrial fibrillation Current Visit: No Status: Resolved Code(s): Z86.79 - PERSONAL HISTORY OF OTHER DISEASES OF THE CIRCULATORY SYSTEM SNOMED Code(s): 205772625 (7) History of pneumonia Current Visit: No Status: Resolved Code(s): Z87.01 - PERSONAL HISTORY OF PNEUMONIA (RECURRENT) SNOMED Code(s): 619256579 (8) Hyperlipidemia Current Visit: Yes Status: Chronic Code(s): E78.5 - HYPERLIPIDEMIA, UNSPECIFIED SNOMED Code(s): 74907946 (9) Hypertension Current Visit: Yes Status: Chronic Code(s): I10 - ESSENTIAL (PRIMARY) HYPERTENSION SNOMED Code(s): 36990206 Plan: 1. Continue chest tubes to water seal. Will monitor output and for resolution of air leak. 2. Pain control with ordered pain medication including epidural. Further pain management per Dr. Chiu and anesthesiology. 3. Will monitor daily labs and x-rays. 4. GI/DVT prophylaxis. 5. Increase activity and weight hallway as tolerated. 6. Encourage incentive spirometry use 10 times every hour. 7. More recommendations to follow. Time with Patient: Greater than 30
[2017-11-20] MEDS: SENNOSIDES-DOCUSATE SODIUM 1 EACH TAB PO SCH (15:36)
--- NOTE | 2017-11-20 16:01 | PN ---
PROGRESS NOTE DATE OF SERVICE: 11/20/2017 PRESENTING COMPLAINT: Left-sided decortication. INTERVAL HISTORY: Patient is status post left decortication for empyema. Chest tube remains in place. Pain is better controlled. Did tolerate some diet. Passed some flatus. Patient did sit up at the edge of the bed. REVIEW OF SYSTEMS: Done for constitutional, cardiovascular, GI, pulmonary; relevant findings as above. CURRENT MEDICATIONS: Reviewed. PHYSICAL EXAMINATION: Temperature 96.6, pulse 90, respiration 18, blood pressure 121/62, pulse ox 91% on room air. GENERAL APPEARANCE: Lying in bed, more comfortable today. EYES: Pupils equal. Conjunctivae normal. HEENT: External appearance of nose and ears normal. Oral cavity some missing dentition. NECK: JVD unable to assess. Mass not palpable. RESPIRATORY: Effort increased. LUNGS: Diminished breath sounds. Chest wall with left-sided chest tube. CARDIOVASCULAR: Heart sounds irregular. No edema. ABDOMEN: Soft, nontender. Liver and spleen not palpable. PSYCHIATRY: Alert and oriented x3. Mood and affect normal. INVESTIGATIONS: White count 15.4, potassium 5, BUN 53, creatinine 2.14. ASSESSMENT: 1. Left lung decortication secondary to empyema. 2. Chronic obstructive pulmonary disease in an ex-smoker. 3. Persistent atrial fibrillation. 4. Chronic fibromyalgia. 5. Obesity; body mass index greater than 35. 6. Chronic pain syndrome. 7. Essential hypertension. 8. Acute renal failure; patient's creatinine going up. Patient did get a dose of PHYLLIS inhibitor and diuretic yesterday. That was subsequently discontinued. Patient is on IV fluids. 9. Hypoalbuminemia as an acute phase reactant. PLAN: Will keep the patient on IV fluids, repeat electrolytes in the morning. Patient is not on any renal-offensive drugs. Will follow closely. MMODL / IJN: [id number] /
--- NOTE | 2017-11-20 16:18 | P.PN ---
Subjective Progress Note Date: 11/20/17 47-year-old male patient was recently treated as an inpatient basis for pneumonia and he was treated and his course was complicated by development of a complex parapneumonic effusion/empyema that was loculated in the left lung. The patient was seen in our office and patient was referred to thoracic surgery and the patient underwent a left thoracotomy and complete decortication of the left lung with cryoablation intercostal nerves V 678. Estimated blood loss was 700 mL. IV fluids infused was 1600 mL. The patient had a total of 3 chest tubes inserted to posterior 100. And cultures were sent. An epidural fentanyl with bupivacaine was offered to an epidural catheter for pain control and following that the patient was extubated and the patient was brought in to the medical surgical floor for further evaluation and recuperation. At a time of my evaluation the patient's pain was under good control. He was off these of oxygen nasal cannula. He was hemodynamic is stable. Output from the chest was around 1 20 mL and the posterior chest tubes are showing some limited amount of air leak that was episodic in nature. Meanwhile the chest x-ray showed adequate expansion of the left lung. There is improvement in aeration of the left lung base. Right lung remained clear. The patient is awake and alert and following commands. He has no specific complaints. Intraoperatively, the patient was found to have a large amount of loculated fluid and purulent material and chronic empyema in the left lung. This was very thickened inflammatory and it was adherent to the lung with very few with plans in between the inflammatory wall in the lung parenchyma. Adhesions were also present. Decortication was done and the patient achieved excellent reexpansion of the left lung after complete decortication. On 11/19/2017 I'm seeing this patient for a follow-up. He is doing well and better than yesterday. His epidural Dilaudid and bupivacaine dose was increased. The patient's pain is under better control for now. Pulling approximately 1500 on the incentive spirometer. There is still some air leak in the posterior chest tubes. The chest x-ray from today shows no interval change and there is a small left-sided pleural effusion. Chest tubes are in good location. The patient is postop day #1. The patient is doing well. As for the chest tubes, the anterior chest tube is draining around 65 ML's over the past 8 hours and for 50 since surgery. The posterior chest tubes have drained 40 a month over the past 8 hour, 190s since surgery. On 11/20/2017 I'm seeing this patient for a follow-up. Is currently off oxygen. Recovering from his surgery. Chest tubes are in place. Chest x-ray stable and there is improvement in aeration of the left lung base. No evidence of any pneumothorax. The patient is still having drainage from his chest tube. The patient has had 60 mL of drainage overnight and overall 200 mL over the past 24 hours from the anterior chest tubeairfit the posterior chest tube and drained 50 mL over the past 8 hours and 180 mL over the past 24 hours. There is some minimal amount of air leak within the posterior chest tube. The patient is pulling up to 1500 on his incentive spirometer. He is afebrile. He has no specific complaints for now. Objective - Vital Signs Vital signs: Vital Signs Temp 97.2 F L 11/20/17 15:58 Pulse 90 11/20/17 16:12 Resp 18 11/20/17 15:58 BP 110/59 11/20/17 15:58 Pulse Ox 90 L 11/20/17 15:58 Intake & Output 11/19/17 11/20/17 11/20/17 18:59 06:59 18:59 Intake Total 6296.124 9294.75 560 Output Total 1935 510 710 Balance -316.833 646.75 -150 Weight 146.5 kg Intake: Intake, IV Titration 085.789 6010.75 Amount Bupivacaine (Pf) 0.5% 31. 58.167 156.75 3 ml fentaNYL (PF) 1,250 mcg In Sodium Chloride 0. 9% 194 ml @ Per Protocol EPIDURAL .Q0M PRN Rx#: [id number] Dextrose 5%-0.45% NaCl 1, 360 000 ml @ 40 mls/hr IV . Q24H [facility] Rx#:[id number] Lactated Ringers 1,000 ml 1000 @ 125 mls/hr IV .Q8H [facility] Rx#:[id number] Oral 1200 560 Output: Chest Tube Drainage 110 110 110 Left Anterior Chest 60 60 80 Left Posterior Chest 50 50 30 Urine 1825 400 600 Uretheral (Gamez) 325 Other: Voiding Method Urinal Urinal Urinal # Voids 1 - Exam Head exam was generally normal. There was no scleral icterus or corneal arcus. Mucous membranes were moist.Neck was supple and without jugular venous distension, thyromegaly, or carotid bruits. Carotids were easily palpable bilaterally. There was no adenopathy. Lung sounds are diminished in the left lung compared to the right and the patient's surgical incision site is dry clean and intact and the chest tubes are all in place. 2 posterior one anterior chest tube can be localized attached to the Pleur-evac.Cardiac exam revealed the PMI to be normally situated and sized. The rhythm was regular and no extrasystoles were noted during several minutes of auscultation. The first and second heart sounds were normal and physiologic splitting of the second heart sound was noted. There were no murmurs, rubs, clicks, or gallops.Abdominal exam revealed normal bowel sounds. The abdomen was soft, non- tender, and without masses, organomegaly, or appreciable enlargement of the abdominal aorta.Examination of the extremities revealed easily palpable radial, femoral and pedal pulses. There was no cyanosis, clubbing or edema.Examination of the skin revealed no evidence of significant rashes, suspicious appearing nevi or other concerning lesions. Neurologically patient is awake and alert and there is no focal neurological deficit at this point. The patient also has a epidural catheter for pain control. - Labs CBC & Chem 7: 11/20/17 06:05 11/20/17 06:05 Labs: Abnormal Lab Results - Last 24 Hours (Table) 11/20/17 11/20/17 Range/Units 06:05 06:05 WBC 15.4 H (3.8-10.6) k/uL RBC 3.32 L (4.30-5.90) m/uL Hgb 9.5 L (13.0-17.5) gm/dL Hct 29.0 L (39.0-53.0) % Neutrophils # 11.7 H (1.3-7.7) k/uL Sodium 134 L (137-145) mmol/L BUN 53 H (9-20) mg/dL Creatinine 2.14 H (0.66-1.25) mg/dL Glucose 107 H (74-99) mg/dL ALT 20 L (21-72) U/L Total Protein 5.6 L (6.3-8.2) g/dL Albumin 2.8 L (3.5-5.0) g/dL Microbiology - Last 24 Hours (Table) 11/18/17 11:30 Anaerobic Culture - Preliminary Pleural Fluid 11/18/17 09:02 Anaerobic Culture - Preliminary Lung - Left 11/18/17 11:30 Gram Stain - Preliminary Pleural Fluid Body Fluid Culture - Preliminary 11/18/17 09:02 Gram Stain - Preliminary Lung - Left Tissue Culture - Preliminary Assessment and Plan Plan: Assessment 1 left lung empyema status post thoracotomy and decortication the patient is postop day #2. Patient is currently recovering on the medical surgical floor. Epidural fentanyl bupivacaine for pain control. Hemodynamically stable. 3 chest tubes of the left hemithorax to posterior 1 anterior. On 11/20/2017, there is still some output from the chest tubes from the left lung and the chest tubes were kept in place. There is also minimal amount of air leak posteriorly. The patient is doing better. His breathing is improved. He is less short of breath. His pain is under good control and the patient is using incentive spirometer. He remains afebrile. He is postop day #2. 2 recent hospitalization for left lung pneumonia 3 acute hypoxic respiratory failure secondary to left lung empyema and pneumonia 4 chronic pain 5 fibromyalgia 6 degenerative arthritis 7 single bout of atrial fibrillation recovered and the patient's rhythm is back to sinus 8 hypertension 9 hyperlipidemia 10 smoker Plan Continue using incentive spirometer. Pain control with epidural fentanyl with bupivacaine. We'll monitor the creatinine knowing that there is a rise in the creatinine up to 2.1. We'll give this patient IV fluids with half-normal saline at the rate of 75 mL an hour. Will monitor renal function. Monitor the output from the chest tube. Daily chest x-rays. Pain control is adequate. Clinically improving. He is doing better on incentive spirometer. We'll continue to follow.
[2017-11-20] MEDS: SODIUM CHLORIDE 0.45% 1,000 ML IV SCH (16:24)
[2017-11-20] MEDS: CALCIUM CARBONATE LIQUID 500 MG/5 ML CUP PO SCH (20:47)
[2017-11-20] MEDS: METOCLOPRAMIDE 5 MG/ML 2 ML VIAL IVP PRN (21:18)
--- NOTE | 2017-11-20 21:36 | P.PN ---
Progress Note - Text Progress Note Date: 11/20/17 The patient has thoracic epidural catheter placement for postoperative pain control. He is postop day #( 2 ), status post left Thoracotomy. The patient is doing well. The pain is well controlled except when he moves out of bed.. He denies any weakness or paresthesia in the lower extremities except for slight tingling in the right thigh laterally. He denies any back pain. There are no signs of infection around the epidural catheter skin entry site. We will remove the epidural catheter tomorrow morning.
[2017-11-20 22:02] LABS: Basophils % (A) 0 %; Eosinophils # (A) 0.2 k/uL (0-0.7); Eosinophils % (A) 2 %; HCT 32.5 % (39.0-53.0); HGB 10.6 gm/dL (13.0-17.5); Lymphocytes # (A) 1.4 k/uL (1.0-4.8); Lymphocytes % (A) 9 %; MCH 28.4 pg (25.0-35.0); MCHC 32.5 g/dL (31.0-37.0); MCV 87.4 fL (80.0-100.0); Mean Platelet Volume 7.8; Monocytes # (A) 0.5 k/uL (0-1.0); Monocytes % (A) 3 %; Neutrophils # (A) 12.7 k/uL (1.3-7.7); Neutrophils % (A) 85 %; Platelet Count 373 k/uL (150-450); RBC 3.72 m/uL (4.30-5.90); RDW 14.7 % (11.5-15.5)
[2017-11-21] MEDS: SODIUM CHLORIDE 0.45% 1,000 ML IV SCH ×2 (03:18→15:56)
[2017-11-21] MEDS: METOCLOPRAMIDE 5 MG/ML 2 ML VIAL IVP PRN (03:18)
[2017-11-21] MEDS: CALCIUM CARBONATE LIQUID 500 MG/5 ML CUP PO SCH ×3 (05:52→16:52)
[2017-11-21] MEDS: PANTOPRAZOLE 40 MG TABLET PO SCH (05:52)
[2017-11-21 06:36] LABS: Basophils % (A) 0 %; Eosinophils # (A) 0.2 k/uL (0-0.7); Eosinophils % (A) 1 %; HCT 28.8 % (39.0-53.0); HGB 9.5 gm/dL (13.0-17.5); Lymphocytes # (A) 1.1 k/uL (1.0-4.8); Lymphocytes % (A) 7 %; MCH 28.7 pg (25.0-35.0); MCHC 32.9 g/dL (31.0-37.0); MCV 87.2 fL (80.0-100.0); Mean Platelet Volume 8.2; Monocytes # (A) 0.6 k/uL (0-1.0); Monocytes % (A) 4 %; Neutrophils # (A) 14.5 k/uL (1.3-7.7); Neutrophils % (A) 87 %; Platelet Count 393 k/uL (150-450); RDW 14.7 % (11.5-15.5); WBC 16.7 k/uL (3.8-10.6)
[2017-11-21] MEDS: IPRATROPIUM-ALBUTEROL 3 ML NEB INHALATION SCH ×4 (06:52→19:42)
[2017-11-21 07:07] LABS: Albumin 3.1 g/dL (3.5-5.0); Calcium 9.6 mg/dL (8.4-10.2); Potassium 5.5 mmol/L (3.5-5.1); Total Bilirubin 0.4 mg/dL (0.2-1.3); Total Protein 6.1 g/dL (6.3-8.2)
--- NOTE | 2017-11-21 07:36 | XR ---
EXAMINATION TYPE: XR chest 1V DATE OF EXAM: 11/21/2017 CLINICAL HISTORY: Difficulty breathing and post fat progress study. TECHNIQUE: Single AP portable upright view of the chest is obtained. COMPARISON: Chest x-ray from one day earlier and older studies. FINDINGS: There is persistent mediastinal drainage catheter and left lateral apical chest tube. Ther e is third drainage catheter epigastric region redemonstrated. There is interval improvement in non-l ayering left- sided pleural fluid collection after surgical procedure. There is adjacent subcutaneous emphysema left lateral chest wall into left neck redemonstrated. There is background of chronic emphysematous change with azygos lobe/ fissure. There is persistent st able right basilar patchy atelectasis and/ or infiltrate. There is persistent left mid to lower lung opacity consistent with atelectasis and/or infiltrate. Cardiac silhouette size is stable and felt upp er limits of normal. Osseous structures are intact. IMPRESSION: Overall stable findings, mediastinal drainage catheter and left apical chest tube witho ut sizable pneumothorax. Chronic emphysematous change with persistent right basilar atelectasis and/o r infiltrate and more diffuse left lung infiltrate and/or atelectasis all are redemonstrated.
[2017-11-21] MEDS: NICOTINE 14MG/24HR PATCH TRANSDERM SCH (08:24)
[2017-11-21] MEDS: DILTIAZEM ORAL 30 MG TAB PO SCH ×3 (08:25→20:04)
[2017-11-21] MEDS: guaiFENesin 600 MG TABLET.ER PO SCH ×2 (08:26→20:02)
[2017-11-21] MEDS: risperiDONE 0.5 MG TAB PO SCH ×3 (08:27→20:04)
[2017-11-21] MEDS: CHOLECALCIFEROL 1,000 UNIT TAB PO SCH (08:27)
[2017-11-21] MEDS: SENNOSIDES-DOCUSATE SODIUM 1 EACH TAB PO SCH (08:27)
[2017-11-21] MEDS: DULoxetine HCL 60 MG CAPSULE.DR PO SCH ×2 (08:28→20:02)
[2017-11-21] MEDS: busPIRone HCl 5 MG TAB PO SCH ×2 (08:28→20:01)
[2017-11-21] MEDS: FENOFIBRATE 160 MG TAB PO SCH (08:28)
[2017-11-21] MEDS: oxyCODONE ER 20 MG TAB.ER.12H PO SCH ×2 (08:33→21:29)
[2017-11-21] MEDS: PREGABALIN 75 MG CAP PO SCH ×2 (08:33→20:07)
[2017-11-21] MEDS: HEPARIN SODIUM,PORCINE 5,000 UNIT/ML 1 ML VIAL SQ SCH ×3 (11:06→23:05)
[2017-11-21] MEDS: ASPIRIN 81 MG PO SCH (11:06)
--- NOTE | 2017-11-21 13:01 | P.PN ---
Progress Note - Text Date: 11/21/2017 Time: 1301 The patient is status post, left thoracotomy, postoperative day number[] The patient has no complaints of nausea vomiting or headache. The patient does not complain of any lower extremity numbness or weakness. The epidural is running at[7] mL per hour. The epidural will be discontinued today. Pain medicines will be provided to the patient by the service.
--- NOTE | 2017-11-21 15:47 | P.PN ---
Subjective Progress Note Date: 11/21/17 47-year-old male patient was recently treated as an inpatient basis for pneumonia and he was treated and his course was complicated by development of a complex parapneumonic effusion/empyema that was loculated in the left lung. The patient was seen in our office and patient was referred to thoracic surgery and the patient underwent a left thoracotomy and complete decortication of the left lung with cryoablation intercostal nerves V 678. Estimated blood loss was 700 mL. IV fluids infused was 1600 mL. The patient had a total of 3 chest tubes inserted to posterior 100. And cultures were sent. An epidural fentanyl with bupivacaine was offered to an epidural catheter for pain control and following that the patient was extubated and the patient was brought in to the medical surgical floor for further evaluation and recuperation. At a time of my evaluation the patient's pain was under good control. He was off these of oxygen nasal cannula. He was hemodynamic is stable. Output from the chest was around 1 20 mL and the posterior chest tubes are showing some limited amount of air leak that was episodic in nature. Meanwhile the chest x-ray showed adequate expansion of the left lung. There is improvement in aeration of the left lung base. Right lung remained clear. The patient is awake and alert and following commands. He has no specific complaints. Intraoperatively, the patient was found to have a large amount of loculated fluid and purulent material and chronic empyema in the left lung. This was very thickened inflammatory and it was adherent to the lung with very few with plans in between the inflammatory wall in the lung parenchyma. Adhesions were also present. Decortication was done and the patient achieved excellent reexpansion of the left lung after complete decortication. On 11/19/2017 I'm seeing this patient for a follow-up. He is doing well and better than yesterday. His epidural Dilaudid and bupivacaine dose was increased. The patient's pain is under better control for now. Pulling approximately 1500 on the incentive spirometer. There is still some air leak in the posterior chest tubes. The chest x-ray from today shows no interval change and there is a small left-sided pleural effusion. Chest tubes are in good location. The patient is postop day #1. The patient is doing well. As for the chest tubes, the anterior chest tube is draining around 65 ML's over the past 8 hours and for 50 since surgery. The posterior chest tubes have drained 40 a month over the past 8 hour, 190s since surgery. On 11/20/2017 I'm seeing this patient for a follow-up. Is currently off oxygen. Recovering from his surgery. Chest tubes are in place. Chest x-ray stable and there is improvement in aeration of the left lung base. No evidence of any pneumothorax. The patient is still having drainage from his chest tube. The patient has had 60 mL of drainage overnight and overall 200 mL over the past 24 hours from the anterior chest tubeairfit the posterior chest tube and drained 50 mL over the past 8 hours and 180 mL over the past 24 hours. There is some minimal amount of air leak within the posterior chest tube. The patient is pulling up to 1500 on his incentive spirometer. He is afebrile. He has no specific complaints for now. On 11/21/2017The patient is doing well and the patient has no specific complaints. Ultrasound the chest is a minimal and there is no evidence of any air leak. On today's chest x-ray the patient has developed some subcutaneous emphysema along the left chest wall area. Otherwise there is some residual atelectatic changes bilaterally in the lung bases and the patient has no evidence of any pneumothorax. Clinically is doing well. His pulling approximately 1500 on incentive spirometer. He is on room air. That the urine catheter was removed and the patient is not receiving epidural pain control for now. He is urinating. Renal function is also being monitored in the creatinine is up to 2.7 and this is something to watch very closely. Patient's potassium level is at 5.5. He is not taking any nephrotoxic agents. I started him on half-normal saline today to 75 mL an hour. An ultrasound the kidneys may be needed to evaluate this patient acute kidney injury. He has an underlying chronic renal failure knowing that his baseline creatinine was not normal. Objective - Vital Signs Vital signs: Vital Signs Temp 97.6 F 11/21/17 12:00 Pulse 91 11/21/17 15:41 Resp 20 11/21/17 15:41 BP 116/61 11/21/17 12:00 Pulse Ox 91 L 11/21/17 12:00 Intake & Output 11/20/17 11/21/17 11/21/17 17:59 06:59 18:59 Intake Total 354.717 Output Total 1100 Balance -745.283 Weight Intake: Intake, IV Titration 114.717 Amount Bupivacaine (Pf) 0.5% 31. 114.717 3 ml fentaNYL (PF) 1,250 mcg In Sodium Chloride 0. 9% 194 ml @ Per Protocol EPIDURAL .Q0M PRN Rx#: [id number] Sodium Chloride 0.45% 1, 000 ml @ 75 mls/hr IV . [id number] [facility] Rx#:[id number] Oral 240 Output: Chest Tube Drainage 0 Left Anterior Chest 0 Left Posterior Chest 0 Urine 1100 Other: Voiding Method Urinal # Voids 3 # Bowel Movements 1 - Exam Head exam was generally normal. There was no scleral icterus or corneal arcus. Mucous membranes were moist.Neck was supple and without jugular venous distension, thyromegaly, or carotid bruits. Carotids were easily palpable bilaterally. There was no adenopathy. Lung sounds are diminished in the left lung compared to the right and the patient's surgical incision site is dry clean and intact and the chest tubes are all in place. 2 posterior one anterior chest tube can be localized attached to the Pleur-evac.Cardiac exam revealed the PMI to be normally situated and sized. The rhythm was regular and no extrasystoles were noted during several minutes of auscultation. The first and second heart sounds were normal and physiologic splitting of the second heart sound was noted. There were no murmurs, rubs, clicks, or gallops.Abdominal exam revealed normal bowel sounds. The abdomen was soft, non- tender, and without masses, organomegaly, or appreciable enlargement of the abdominal aorta.Examination of the extremities revealed easily palpable radial, femoral and pedal pulses. There was no cyanosis, clubbing or edema.Examination of the skin revealed no evidence of significant rashes, suspicious appearing nevi or other concerning lesions. Neurologically patient is awake and alert and there is no focal neurological deficit at this point. The patient also has a epidural catheter for pain control. - Labs CBC & Chem 7: 11/21/17 05:43 11/21/17 05:43 Labs: Abnormal Lab Results - Last 24 Hours (Table) 11/20/17 11/21/17 11/21/17 Range/Units 21:25 05:43 05:43 WBC 15.0 H 16.7 H (3.8-10.6) k/uL RBC 3.72 L 3.30 L (4.30-5.90) m/uL Hgb 10.6 L 9.5 L (13.0-17.5) gm/dL Hct 32.5 L 28.8 L (39.0-53.0) % Neutrophils # 12.7 H 14.5 H (1.3-7.7) k/uL Sodium 133 L (137-145) mmol/L Potassium 5.5 H (3.5-5.1) mmol/L Chloride 93 L (98-107) mmol/L BUN 69 H (9-20) mg/dL Creatinine 2.70 H (0.66-1.25) mg/dL Glucose 128 H (74-99) mg/dL ALT 20 L (21-72) U/L Total Protein 6.1 L (6.3-8.2) g/dL Albumin 3.1 L (3.5-5.0) g/dL Microbiology - Last 24 Hours (Table) 11/18/17 11:30 Gram Stain - Preliminary Pleural Fluid Body Fluid Culture - Preliminary 11/18/17 09:02 Gram Stain - Preliminary Lung - Left Tissue Culture - Preliminary 11/18/17 11:30 Anaerobic Culture - Preliminary Pleural Fluid 11/18/17 09:02 Anaerobic Culture - Preliminary Lung - Left Assessment and Plan Plan: Assessment 1 left lung empyema status post thoracotomy and decortication the patient is postop day #3. The chest x-ray from today shows subcu emphysema along the left chest area. The chest tubes are all in place. Output has been minimal. The chest tubes were removed. The epidural catheter will be also removed. The patient will be encouraged use of incentive spirometer. 2 recent hospitalization for left lung pneumonia 3 acute hypoxic respiratory failure secondary to left lung empyema and pneumonia , improving and the patient is currently on room air. 4 chronic pain 5 fibromyalgia 6 degenerative arthritis 7 single bout of atrial fibrillation recovered and the patient's rhythm is back to sinus 8 hypertension 9 hyperlipidemia 10 smoker 11 acute kidney injury on top of chronic renal failure and creatinine is up to 2.7 and the patient was placed on IV fluids with half-normal saline today to 75 mL an hour. Plan Continue using incentive spirometer. Discontinue the epidural catheter and monitor the pain control. Ultrasound the kidneys to rule out hydronephrosis facing this acute kidney injury. Continue half-normal saline at the rate of 75 mL an hour. Chest tube will be removed. Repeat chest x-ray in the morning. Repeat the renal function tests in the morning. We'll continue to follow.
[2017-11-21] MEDS: MORPHINE SULFATE 4 MG/ML SYRINGE IVP PRN ×2 (16:03→20:08)
--- NOTE | 2017-11-21 16:39 | P.PN ---
Subjective Progress Note Date: 11/21/17 Principal diagnosis: Empyema left chest, hypertension, hyperlipidemia, recent left lung pneumonia, chronic fibromyalgia, gout, degenerative arthritis, degenerative disc disease involving the lumbar spine, history of paroxysmal atrial fibrillation, history of nicotine dependence and chronic anxiety. POD #3 Left thoracotomy, complete decortication left lung, cryoablation intercostal nerves 5, 6, 7 and 8. The patient is laying in bed with his head elevated. He is in no acute distress. He is alert and oriented 3. He reports that his pain is well controlled at this time. An currently rates his pain 2 out of 10 on the pain scale. His epidural is intact and currently running at 8 mL per hour and per the patient will be discontinued today.. Oxygen saturation are 93% on room air. He is using his incentive spirometry and is achieving 1850 mL with encouragement. His left pleural chest tubes remain to waterseal. Patient's creatinine remains going up, today his creatinine is 2.7. The patient reports that he has been taking some home ibuprofen while in the hospital. The patient was asked to discontinue the ibuprofen due to his elevated creatinine. Objective - Vital Signs Vital signs: Vital Signs Temp 97.8 F 11/21/17 15:53 Pulse 72 11/21/17 15:53 Resp 18 11/21/17 15:53 BP 118/56 11/21/17 15:53 Pulse Ox 93 L 11/21/17 15:53 Intake & Output 11/20/17 11/21/17 11/21/17 17:59 06:59 18:59 Intake Total 354.717 Output Total 1130 Balance -775.283 Weight Intake: Intake, IV Titration 114.717 Amount Bupivacaine (Pf) 0.5% 31. 114.717 3 ml fentaNYL (PF) 1,250 mcg In Sodium Chloride 0. 9% 194 ml @ Per Protocol EPIDURAL .Q0M PRN Rx#: [id number] Sodium Chloride 0.45% 1, 000 ml @ 75 mls/hr IV . [id number] UZIEL Rx#:[id number] Oral 240 Output: Chest Tube Drainage 30 Left Anterior Chest 30 Left Posterior Chest 0 Urine 1100 Other: Voiding Method Urinal # Voids 3 # Bowel Movements 1 - Constitutional General appearance: Present: cooperative, no acute distress, obese - Neck Details: Neck is supple, no JVD or lymphadenopathy. - Respiratory Details: Lung sounds are essentially clear to his bilateral upper lobes, scattered crackles to his left lower lobe. Respirations are symmetrical and nonlabored. Oxygen saturation are 93% on room air. He is achieving 1850 mL on his incentive spirometry. Anterior posterior chest left pleural chest tubes remained to waterseal. They are draining thin serosanguineous drainage. No air leak present. Anterior chest tubes drained 20 mL output in the last 24 hours, posterior chest tubes drained 60 mL in the last 8 hours, and 140 mL in the last 24 hours. - Cardiovascular Details: Regular rhythm and rate. S1 and S2 present, negative for S3, gallop or murmur. Remote telemetry showing normal sinus rhythm heart rate 86. Knee-high sequential compression devices in place to his bilateral lower extremities. - Gastrointestinal Gastrointestinal Comment(s): Abdomen is soft, nontender, nondistended and obese. Active bowel sounds to all 4 abdominal quadrants. Passing flatus. Tolerating oral intake. - Genitourinary Genitourinary Comment(s): Voiding clear yellow urine. Adequate urine output. - Integumentary Integumentary Comment(s): Skin is warm and dry. No clubbing or cyanosis present. Left thoracotomy incision clean dry and well approximated. No drainage or redness present. Dermabond dressing clean and dry. - Neurologic Neurologic Comment(s): Epidural site clean, intact and dry. No drainage or redness present. Neurologic: Present: CNII-XII intact - Musculoskeletal Musculoskeletal: Present: gait normal, strength equal bilaterally - Psychiatric Psychiatric: Present: A&O x's 3, appropriate affect, intact judgment & insight - Allied health notes Allied health notes reviewed: nursing - Labs CBC & Chem 7: 11/21/17 05:43 11/21/17 05:43 Labs: Abnormal Lab Results - Last 24 Hours (Table) 11/20/17 11/21/17 11/21/17 Range/Units 21:25 05:43 05:43 WBC 15.0 H 16.7 H (3.8-10.6) k/uL RBC 3.72 L 3.30 L (4.30-5.90) m/uL Hgb 10.6 L 9.5 L (13.0-17.5) gm/dL Hct 32.5 L 28.8 L (39.0-53.0) % Neutrophils # 12.7 H 14.5 H (1.3-7.7) k/uL Sodium 133 L (137-145) mmol/L Potassium 5.5 H (3.5-5.1) mmol/L Chloride 93 L (98-107) mmol/L BUN 69 H (9-20) mg/dL Creatinine 2.70 H (0.66-1.25) mg/dL Glucose 128 H (74-99) mg/dL ALT 20 L (21-72) U/L Total Protein 6.1 L (6.3-8.2) g/dL Albumin 3.1 L (3.5-5.0) g/dL Microbiology - Last 24 Hours (Table) 11/18/17 11:30 Gram Stain - Preliminary Pleural Fluid Body Fluid Culture - Preliminary 11/18/17 09:02 Gram Stain - Preliminary Lung - Left Tissue Culture - Preliminary 11/18/17 11:30 Anaerobic Culture - Preliminary Pleural Fluid 11/18/17 09:02 Anaerobic Culture - Preliminary Lung - Left - Imaging and Cardiology Chest x-ray: report reviewed, image reviewed Assessment and Plan (1) Fibromyalgia Current Visit: Yes Status: Chronic Code(s): M79.7 - FIBROMYALGIA SNOMED Code(s): 152102917 (2) Chronic pain Current Visit: Yes Status: Chronic Code(s): G89.29 - OTHER CHRONIC PAIN SNOMED Code(s): 86011981 (3) Degenerative arthritis Current Visit: Yes Status: Chronic Code(s): M19.90 - UNSPECIFIED OSTEOARTHRITIS, UNSPECIFIED SITE SNOMED Code(s): 217347836 (4) History of atrial fibrillation Current Visit: No Status: Resolved Code(s): Z86.79 - PERSONAL HISTORY OF OTHER DISEASES OF THE CIRCULATORY SYSTEM SNOMED Code(s): 187622302 (5) Hypertension Current Visit: Yes Status: Chronic Code(s): I10 - ESSENTIAL (PRIMARY) HYPERTENSION SNOMED Code(s): 24912580 (6) Hyperlipidemia Current Visit: Yes Status: Chronic Code(s): E78.5 - HYPERLIPIDEMIA, UNSPECIFIED SNOMED Code(s): 28418485 (7) History of pneumonia Current Visit: No Status: Resolved Code(s): Z87.01 - PERSONAL HISTORY OF PNEUMONIA (RECURRENT) SNOMED Code(s): 886209963 (8) Empyema, left Current Visit: Yes Status: Chronic Code(s): J86.9 - PYOTHORAX WITHOUT FISTULA SNOMED Code(s): 39834422 (9) Elevated serum creatinine Current Visit: Yes Status: Acute Code(s): R79.89 - OTHER SPECIFIED ABNORMAL FINDINGS OF BLOOD CHEMISTRY SNOMED Code(s): 631325556 Plan: 1. Pain control per when necessary orders and epidural management per anesthesia recommendations. 2. Medical management per Dr. Chiu. 3. Encourage use of his incentive spirometry every hour while awake. 4. Pulmonary recommendations per Dr. Abel. 5. We will remove his anterior and posterior left pleural chest tubes today. 6. We will consult nephrology due to his elevated creatinine. Continue IV fluids. 7. DVT and GI prophylaxis. 8. We will monitor daily labs and chest x-rays. 9. Surgical specimen pathology showing organizing abscess with bacterial organisms consistent with empyema wall. 10. Increase activity as tolerated, physical therapy following. 11. More recommendations to follow as patient progresses in his care. Left anterior and posterior chest tubes removed without incident. 4 x 4 gauze, Vaseline impregnated gauze to cover and secured with tape. Time with Patient: Greater than 30
[2017-11-21] MEDS ORDERED: SODIUM POLYSTYRENE SULFONATE 15 GM/60 ML BOTTLE PO STA (18:11)
[2017-11-21 18:46] LABS: Appearance,Urine Clear (Clear); Bilirubin,Urine Negative (Negative); Blood,Urine Negative (Negative); Color,Urine Yellow; Glucose,Urine (UA) Negative (Negative); Ketones,Urine Negative (Negative); Leukocyte Esterase,Urine Negative (Negative); Nitrite,Urine Negative (Negative); Protein,Urine Negative (Negative); Specific Gravity,Urine 1.011 (1.001-1.035); Urobilinogen,Urine <2.0 mg/dL (<2.0)
--- NOTE | 2017-11-21 18:56 | PN ---
PROGRESS NOTE DATE OF SERVICE: 11/21/2017. PRESENT COMPLAINT: Left lung decortication. INTERVAL HISTORY: Patient is status post left lung decortication. Chest tubes remain in place. Breathing is better. Tolerating a diet. Actually had a bowel movement. The patient has also acute renal failure. The patient was on PHYLLIS inhibitor and taking Motrin at home. REVIEW OF SYSTEMS: Done for constitutional, cardiovascular, GI, pulmonary; relevant findings as above. CURRENT MEDICATIONS: Reviewed. EXAMINATION: Temperature 97.6, pule 91, respirations 20, blood pressure 106/61, pulse ox 91% on 2 L. GENERAL APPEARANCE: Lying in bed, more awake, comfortable. EYES: Pupils equal. Conjunctivae normal. HEENT: External appearance of ears and nose normal. Oral cavity normal. NECK: JVD not raised. Mass not palpable. Respiratory effort normal. LUNGS: Decreased breath sounds on the left side with a chest tube in place. ABDOMEN: Soft, nontender. Liver and spleen not palpable. PSYCHIATRY: Alert and oriented x3. Mood and affect normal. INVESTIGATIONS: White count 16.7, hemoglobin 9.5, potassium 5.5, BUN 69, creatinine 2.70. ASSESSMENT: 1. Left lung decortication secondary to empyema. 2. Chronic obstructive pulmonary disease in an ex-smoker. 3. Persistent atrial fibrillation. 4. Chronic fibromyalgia. 5. Obesity; BMI greater than 35. 6. Chronic pain syndrome. 7. Essential hypertension. 8. Acute renal failure, probably acute tubular necrosis from a combination of patient being on PHYLLIS inhibitor and taking Motrin at home, worsening. 9. Hypoalbuminemia with acute phase reactant. 10.Hyperkalemia from acute renal failure. PLAN: Keep the patient on IV fluids. Nephrology has been consulted. Will order renal ultrasound. Care was discussed with the patient. We will order renal ultrasound and UA and also do strict I and O. MMODL / IJN: [id number] /
[2017-11-22] MEDS: MORPHINE SULFATE 4 MG/ML SYRINGE IVP PRN ×5 (01:16→17:09)
[2017-11-22] MEDS: CALCIUM CARBONATE LIQUID 500 MG/5 ML CUP PO SCH ×3 (05:56→17:11)
[2017-11-22] MEDS: PANTOPRAZOLE 40 MG TABLET PO SCH (05:57)
[2017-11-22 06:46] LABS: Anion Gap 11 mmol/L; Blood Urea Nitrogen 44 mg/dL (9-20); Calcium 9.7 mg/dL (8.4-10.2); Carbon Dioxide 27 mmol/L (22-30); Chloride 98 mmol/L (98-107); Glucose 127 mg/dL (74-99); Potassium 4.7 mmol/L (3.5-5.1); Sodium 136 mmol/L (137-145)
[2017-11-22] MEDS: CHOLECALCIFEROL 1,000 UNIT TAB PO SCH (08:47)
[2017-11-22] MEDS: guaiFENesin 600 MG TABLET.ER PO SCH (08:47)
[2017-11-22] MEDS: busPIRone HCl 5 MG TAB PO SCH (08:47)
[2017-11-22] MEDS: PREGABALIN 75 MG CAP PO SCH (08:47)
[2017-11-22] MEDS: NICOTINE 14MG/24HR PATCH TRANSDERM SCH (08:47)
[2017-11-22] MEDS: SENNOSIDES-DOCUSATE SODIUM 1 EACH TAB PO SCH (08:48)
[2017-11-22] MEDS: DULoxetine HCL 60 MG CAPSULE.DR PO SCH (08:48)
[2017-11-22] MEDS: oxyCODONE ER 20 MG TAB.ER.12H PO SCH (08:48)
[2017-11-22] MEDS: FENOFIBRATE 160 MG TAB PO SCH (08:48)
[2017-11-22] MEDS: ASPIRIN 81 MG PO SCH (08:48)
[2017-11-22] MEDS: DILTIAZEM ORAL 30 MG TAB PO SCH ×2 (08:48→17:11)
[2017-11-22] MEDS: HEPARIN SODIUM,PORCINE 5,000 UNIT/ML 1 ML VIAL SQ SCH ×2 (08:49→17:10)
--- NOTE | 2017-11-22 08:49 | US ---
EXAMINATION TYPE: US kidneys/renal and bladder DATE OF EXAM: 11/22/2017 COMPARISON: NONE CLINICAL HISTORY: Acute kidney injury, rule out hydronephrosis. lung surgery 3 days ago and having fl ank pain on left side where 6 ribs were fractured EXAM MEASUREMENTS: Right Kidney: 13.3 x 5.8 x 5.8 cm Left Kidney: 13.7 x 4.6 x 7.8 cm Right Kidney: large in size, otherwise wnl Left Kidney: large in size, otherwise wnl Bladder: not distended There is no evidence for hydronephrosis at this point in time. No nephrolithiasis is seen. No karen s are identified. The urinary bladder is anechoic. Bilateral ureteral jets are seen. IMPRESSION: No evidence of hydronephrosis or nephrolithiasis. Prominent size of the kidneys bilaterally is likely an anatomic variant. Urinary bladder is not distended and cannot be evaluated.
[2017-11-22] MEDS: risperiDONE 0.5 MG TAB PO SCH ×2 (08:50→17:11)
[2017-11-22] MEDS: IPRATROPIUM-ALBUTEROL 3 ML NEB INHALATION SCH ×4 (09:09→19:09)
--- NOTE | 2017-11-22 09:29 | XR ---
EXAMINATION TYPE: XR chest 2V DATE OF EXAM: 11/22/2017 COMPARISON: 11/21/2017 TECHNIQUE: PA and lateral views submitted. HISTORY: Chest tube follow up FINDINGS: There is subcutaneous emphysema on the left with bilateral areas of infiltrate and small left pleural effusion. Chest tube is been removed. Mediastinal drain has been removed. Underlying COPD noted. Deann pical pleural thickening stable. IMPRESSION: 1. Bilateral infiltrate and small left effusion stable. 2. No sizable pneumothorax 3. Subcutaneous emphysema stable.
--- NOTE | 2017-11-22 11:44 | P.PN ---
Subjective Progress Note Date: 11/22/17 Principal diagnosis: Empyema left chest. History of hypertension, hyperlipidemia, recent left lung pneumonia, chronic fibromyalgia, gout, degenerative arthritis, degenerative disc disease involving the lumbar spine, history of paroxysmal atrial fibrillation, history of nicotine dependence, and chronic anxiety. Chronic pain syndrome POD #4 left thoracotomy, complete decortication left lung, cryoablation intercostal nerves 5, 6, 7 and 8. The patient is currently lying in bed in no acute distress. Left pleural chest tubes were removed yesterday. Patient states his pain is controlled on ordered medications. Epidural was also discontinued yesterday. Patient has been up ambulating. Objective - Vital Signs Vital signs: Vital Signs Temp 96.6 F L 11/22/17 04:00 Pulse 88 11/22/17 09:22 Resp 24 11/22/17 04:00 BP 148/77 11/22/17 04:00 Pulse Ox 96 11/22/17 04:00 Intake & Output 11/21/17 11/22/17 11/22/17 18:59 06:59 18:59 Intake Total 902.300 Output Total 1730 2934 Balance -827.700 -2934 Weight 138.8 kg Intake: Intake, IV Titration 122.300 Amount Bupivacaine (Pf) 0.5% 31. 122.300 3 ml fentaNYL (PF) 1,250 mcg In Sodium Chloride 0. 9% 194 ml @ Per Protocol EPIDURAL .Q0M PRN Rx#: [id number] Oral 780 Output: Chest Tube Drainage 30 Left Anterior Chest 30 Left Posterior Chest 0 Urine 1700 2930 Stool 4 Other: Voiding Method Urinal Urinal # Voids 3 2 1 # Bowel Movements 1 0 - Constitutional General appearance: Present: cooperative, no acute distress, obese - Respiratory Details: Lung sounds diminished bilaterally. Respirations even, nonlabored. Currently on room air with oxygen saturation 96%. Able to achieve 2000 mL on his incentive spirometry. - Cardiovascular Details: S1, S2 present. Regular rate and rhythm, sinus rhythm on telemetry. Palpable peripheral pulses bilaterally. No edema present. No calf pain or tenderness noted. - Gastrointestinal Gastrointestinal Comment(s): Abdomen soft, nontender, nondistended. Active bowel sounds 4 quadrants. Tolerating diet. - Genitourinary Genitourinary Comment(s): Continues to void clear, yellow urine. - Integumentary Integumentary Comment(s): Skin is warm and dry with evidence of good perfusion. Left lateral incisions well approximated covered with dry intact dressing. - Neurologic Neurologic: Present: CNII-XII intact - Musculoskeletal Musculoskeletal: Present: gait normal, strength equal bilaterally - Psychiatric Psychiatric: Present: A&O x's 3, appropriate affect, intact judgment & insight - Allied health notes Allied health notes reviewed: nursing - Labs CBC & Chem 7: 11/21/17 05:43 11/22/17 05:45 Labs: Abnormal Lab Results - Last 24 Hours (Table) 11/22/17 Range/Units 05:45 Sodium 136 L (137-145) mmol/L BUN 44 H (9-20) mg/dL Glucose 127 H (74-99) mg/dL Microbiology - Last 24 Hours (Table) 11/18/17 11:30 Anaerobic Culture - Final Pleural Fluid 11/18/17 11:30 Gram Stain - Final Pleural Fluid Body Fluid Culture - Final 11/18/17 09:02 Gram Stain - Final Lung - Left Tissue Culture - Final 11/18/17 09:02 Anaerobic Culture - Final Lung - Left - Imaging and Cardiology Chest x-ray: report reviewed, image reviewed Assessment and Plan (1) Chronic pain Current Visit: Yes Status: Chronic Code(s): G89.29 - OTHER CHRONIC PAIN SNOMED Code(s): 06556259 (2) Degenerative arthritis Current Visit: Yes Status: Chronic Code(s): M19.90 - UNSPECIFIED OSTEOARTHRITIS, UNSPECIFIED SITE SNOMED Code(s): 621254026 (3) Elevated serum creatinine Current Visit: Yes Status: Acute Code(s): R79.89 - OTHER SPECIFIED ABNORMAL FINDINGS OF BLOOD CHEMISTRY SNOMED Code(s): 437193981 (4) Empyema, left Current Visit: Yes Status: Chronic Code(s): J86.9 - PYOTHORAX WITHOUT FISTULA SNOMED Code(s): 28859653 (5) Fibromyalgia Current Visit: Yes Status: Chronic Code(s): M79.7 - FIBROMYALGIA SNOMED Code(s): 519755829 (6) History of atrial fibrillation Current Visit: No Status: Resolved Code(s): Z86.79 - PERSONAL HISTORY OF OTHER DISEASES OF THE CIRCULATORY SYSTEM SNOMED Code(s): 452266532 (7) History of pneumonia Current Visit: No Status: Resolved Code(s): Z87.01 - PERSONAL HISTORY OF PNEUMONIA (RECURRENT) SNOMED Code(s): 996141538 (8) Hyperlipidemia Current Visit: Yes Status: Chronic Code(s): E78.5 - HYPERLIPIDEMIA, UNSPECIFIED SNOMED Code(s): 51531333 (9) Hypertension Current Visit: Yes Status: Chronic Code(s): I10 - ESSENTIAL (PRIMARY) HYPERTENSION SNOMED Code(s): 86851283 Plan: 1. Pain control with ordered pain medication. Further pain management per Dr. Chiu. 2. Will monitor daily labs and x-rays. 3. GI/DVT prophylaxis. 4. Increase activity, ambulate in hallway. Physical therapy following. 5. Encourage incentive spirometry use 10 times every hour. 6. Surgical pathology demonstrating organizing abscess with bacterial organisms consistent with empyema. Appreciate infectious disease recommendations for antibiotics. 7. More recommendations to follow. Discharge planning in progress. Would like to discharge patient to home today, but this is dependent on recommendations from infectious disease regarding antibiotic treatment. Time with Patient: Greater than 30
[2017-11-22] MEDS: SODIUM CHLORIDE 0.45% 1,000 ML IV SCH (11:45)
[2017-11-22 12:23] VITALS: RESP 18
--- NOTE | 2017-11-22 14:43 | P.PN ---
Subjective Progress Note Date: 11/22/17 Principal diagnosis: Acute hypoxic respiratory failure secondary to diastolic congestive heart failure. This is a very pleasant 77-year-old gentleman who follows with Dr. Black as his primary care physician. He has a history of hypertension, hyperlipidemia, diabetes mellitus, chronic renal failure, atrial fibrillation, chronic obstructive pulmonary disease, obstructive sleep apnea utilizing CPAP in the outpatient setting, morbid obesity. He had initially undergone a coronary artery bypass grafting surgery here on 10/05/2017. At that time he received a WALKER to LAD, saphenous vein grafts to the OM1, diagonal and PDA. He had a complicated course of brief cardiopulmonary arrest, he subsequently recovered and was transferred to [facility] for inpatient rehabilitation with Dr. Serrato. He was slow to progress there. He was attempting to work with rehabilitation however the patient had continued and ongoing fluid retention and later transferred to the medical floor. From there he was on a Lasix drip at 50 mg in our for several days. He was up again with a walker and assistance and doing well and the plan was to transfer him to [facility]. Prior to his discharge he sustained another cardiac arrest was intubated and sent to the intensive care unit on 11/15/2017. He had been seen and evaluated by our group throughout his stay. He was successfully extubated on 11/18/2017. Continue to utilize BiPAP during the evenings and throughout the day while napping. He subsequently was started on hemodialysis and had been having approximately 3 L removed per day for 2-3 days in a row. Creatinine 2.45. A follow-up echocardiogram was done and showed a moderate circumferential pericardial effusion. Based on these findings the plan was to transfer him back here to [facility] where there is a cardiothoracic team available. He is seen today in consultation on the selective care unit. He is awake and alert in no acute distress. The patient however is very weak. He is moving all fours but with much effort. He is currently maintained on BiPAP 12 over 4 and 50% FiO2. His most recent chest x-ray at [facility] revealed improvement in the bilateral pleural effusions. He is continuing with hemodialysis treatments. He remains on DuoNeb inhalations every 4 hours and when necessary, [place] inhalations twice a day, IV Lasix 80 mg every 12 hours, Diamox, and antibiotics in the form of Zosyn. On 11/21/2017 the patient is awake and alert. His mouth is dry and he needs some oral care. He is afebrile hemodynamically stable. Underwent dialysis yesterday. No signs of any fluid overload. No major swelling lower extremities. He is utilizing the BiPAP constantly throughout the day and night. He is communicating. He is very weak. No altered mentation. Urine output is improving and the patient will not have dialysis today. A repeat echocardiogram was ordered to reevaluate the amount and extent of the pericardial effusion Patient was reevaluated today on 11/22/2017, continues to do relatively well, patient is generally weak, denies any shortness of breath, patient is not receiving any more hemodialysis. Labs were reviewed potassium is low at 3.0, BUN is 51 creatinine 3.20 is at bedside, pleased with the gradual improvement over the last few days. Objective - Vital Signs Vital signs: Vital Signs Temp 97.0 F L 11/22/17 12:00 Pulse 84 11/22/17 12:50 Resp 18 11/22/17 12:00 BP 128/75 11/22/17 12:00 Pulse Ox 91 L 11/22/17 12:00 Intake & Output 11/21/17 11/22/17 11/22/17 18:59 06:59 18:59 Intake Total 902.300 90 Output Total 1730 2934 4 Balance -827.700 -2934 86 Weight 138.8 kg Intake: Intake, IV Titration 122.300 Amount Bupivacaine (Pf) 0.5% 31. 122.300 3 ml fentaNYL (PF) 1,250 mcg In Sodium Chloride 0. 9% 194 ml @ Per Protocol EPIDURAL .Q0M PRN Rx#: [id number] Oral 780 90 Output: Chest Tube Drainage 30 Left Anterior Chest 30 Left Posterior Chest 0 Urine 1700 2930 Stool 4 4 Other: Voiding Method Urinal Urinal Urinal # Voids 3 2 1 # Bowel Movements 1 0 - Exam GENERAL EXAM: Morbidly obese. Seems to be weak and frail. HEAD: Normocephalic. EYES: Normal reaction of pupils, equal size. NOSE: Clear with pink turbinates. THROAT: Crowding of the posterior pharynx. No erythema or exudates. NECK: Short. No masses, no JVD. CHEST: Sternal wound is well healed, clean dry well approximated. No chest wall deformity. LUNGS: Equal air entry with crackles in the bilateral posterior bases diminished. CVS: O in distal heart sounds. S1 and S2 normal with no audible murmur, irregular rhythm. ABDOMEN: No hepatosplenomegaly, normal bowel sounds, no guarding or rigidity. Indwelling Gamez catheter. SPINE: No scoliosis or deformity SKIN: No rashes CENTRAL NERVOUS SYSTEM: No focal deficits, tone is diminished in all 4 extremities. EXTREMITIES ; Left femoral triple-lumen catheter. Jean [place] wraps to lower extremities. There is no peripheral edema. No clubbing, no cyanosis. Peripheral pulses are intact. - Labs CBC & Chem 7: 11/21/17 05:43 11/22/17 05:45 Labs: Abnormal Lab Results - Last 24 Hours (Table) 11/22/17 Range/Units 05:45 Sodium 136 L (137-145) mmol/L BUN 44 H (9-20) mg/dL Glucose 127 H (74-99) mg/dL Microbiology - Last 24 Hours (Table) 11/18/17 11:30 Anaerobic Culture - Final Pleural Fluid 11/18/17 11:30 Gram Stain - Final Pleural Fluid Body Fluid Culture - Final 11/18/17 09:02 Gram Stain - Final Lung - Left Tissue Culture - Final 11/18/17 09:02 Anaerobic Culture - Final Lung - Left Assessment and Plan Assessment: #1 Acute hypoxic respiratory failure secondary to an acute exacerbation of diastolic congestive heart failure. Status post cardiac arrest requiring CPR and re-intubation and mechanical ventilation 11/15/2017 with subsequent extubation on 11/18/2017. Chest x-ray reveals improvement in the bilateral pleural effusions. Meanwhile, the patient is doing better and the patient is currently on 3 L of oxygen nasal cannula. No signs of any respiratory distress. His last session of dialysis was yesterday and the patient is producing adequate amount of urine output. #2 Moderate circumferential pericardial effusion. A repeat echocardiogram was done today, awaiting results, in consideration for any intervention or pericardiocentesis if needed. #3 Coronary artery disease with coronary artery bypass grafting utilizing a WALKER to the LAD, saphenous vein grafts to the OM1, diagonal and PDA on 2017. #4 Acute on chronic renal failure requiring hemodialysis. The patient is producing urine output. We'll hold dialysis for today. The patient is currently on a combination of IV Lasix and Zaroxolyn. #5 atrial fibrillation. The patient has a controlled rate for now. The patient on amiodarone 200 mg by mouth daily. The patient is also on Coreg. #6 Hypertension. #7 Hyperlipidemia. #8 Obstructive sleep apnea utilizing CPAP in the outpatient setting. #9 Chronic obstructive pulmonary disease. #10 Diabetes mellitus. #11 Morbid obesity. #12 Poor overall functional performance based on the above mentioned multiple comorbidities. Recommendation: Continue present supportive care measures, continue IV Lasix, continue Zaroxolyn, Diamox, follow-up echocardiogram was reviewed and is basically the same. May have to reconsider rehab referral all over again. Time with Patient: Less than 30
--- NOTE | 2017-11-22 15:15 | P.PN ---
Subjective Progress Note Date: 11/22/17 Principal diagnosis: Left lung empyema, status post thoracotomy and decortication postoperative day # 4 47-year-old male patient was recently treated as an inpatient basis for pneumonia and he was treated and his course was complicated by development of a complex parapneumonic effusion/empyema that was loculated in the left lung. The patient was seen in our office and patient was referred to thoracic surgery and the patient underwent a left thoracotomy and complete decortication of the left lung with cryoablation intercostal nerves V 678. Estimated blood loss was 700 mL. IV fluids infused was 1600 mL. The patient had a total of 3 chest tubes inserted to posterior 100. And cultures were sent. An epidural fentanyl with bupivacaine was offered to an epidural catheter for pain control and following that the patient was extubated and the patient was brought in to the medical surgical floor for further evaluation and recuperation. At a time of my evaluation the patient's pain was under good control. He was off these of oxygen nasal cannula. He was hemodynamic is stable. Output from the chest was around 1 20 mL and the posterior chest tubes are showing some limited amount of air leak that was episodic in nature. Meanwhile the chest x-ray showed adequate expansion of the left lung. There is improvement in aeration of the left lung base. Right lung remained clear. The patient is awake and alert and following commands. He has no specific complaints. Intraoperatively, the patient was found to have a large amount of loculated fluid and purulent material and chronic empyema in the left lung. This was very thickened inflammatory and it was adherent to the lung with very few with plans in between the inflammatory wall in the lung parenchyma. Adhesions were also present. Decortication was done and the patient achieved excellent reexpansion of the left lung after complete decortication. On 11/19/2017 I'm seeing this patient for a follow-up. He is doing well and better than yesterday. His epidural Dilaudid and bupivacaine dose was increased. The patient's pain is under better control for now. Pulling approximately 1500 on the incentive spirometer. There is still some air leak in the posterior chest tubes. The chest x-ray from today shows no interval change and there is a small left-sided pleural effusion. Chest tubes are in good location. The patient is postop day #1. The patient is doing well. As for the chest tubes, the anterior chest tube is draining around 65 ML's over the past 8 hours and for 50 since surgery. The posterior chest tubes have drained 40 a month over the past 8 hour, 190s since surgery. On 11/20/2017 I'm seeing this patient for a follow-up. Is currently off oxygen. Recovering from his surgery. Chest tubes are in place. Chest x-ray stable and there is improvement in aeration of the left lung base. No evidence of any pneumothorax. The patient is still having drainage from his chest tube. The patient has had 60 mL of drainage overnight and overall 200 mL over the past 24 hours from the anterior chest tubeairfit the posterior chest tube and drained 50 mL over the past 8 hours and 180 mL over the past 24 hours. There is some minimal amount of air leak within the posterior chest tube. The patient is pulling up to 1500 on his incentive spirometer. He is afebrile. He has no specific complaints for now. On 11/21/2017The patient is doing well and the patient has no specific complaints. Ultrasound the chest is a minimal and there is no evidence of any air leak. On today's chest x-ray the patient has developed some subcutaneous emphysema along the left chest wall area. Otherwise there is some residual atelectatic changes bilaterally in the lung bases and the patient has no evidence of any pneumothorax. Clinically is doing well. His pulling approximately 1500 on incentive spirometer. He is on room air. That the urine catheter was removed and the patient is not receiving epidural pain control for now. He is urinating. Renal function is also being monitored in the creatinine is up to 2.7 and this is something to watch very closely. Patient's potassium level is at 5.5. He is not taking any nephrotoxic agents. I started him on half-normal saline today to 75 mL an hour. An ultrasound the kidneys may be needed to evaluate this patient acute kidney injury. He has an underlying chronic renal failure knowing that his baseline creatinine was not normal. Reevaluated today on 11/22/2017, patient is doing well, relatively asymptomatic, chest tubes have been removed. Patient actually is being considered for discharge planning home today. Chest x-ray showed bilateral infiltrates, small left effusion, and subcutaneous emphysema which has been stable. Objective - Vital Signs Vital signs: Vital Signs Temp 97.0 F L 11/22/17 12:00 Pulse 84 11/22/17 12:50 Resp 18 11/22/17 12:00 BP 128/75 11/22/17 12:00 Pulse Ox 91 L 11/22/17 12:00 Intake & Output 11/21/17 11/22/17 11/22/17 18:59 06:59 18:59 Intake Total 902.300 90 Output Total 1730 2934 4 Balance -827.700 -2934 86 Weight 138.8 kg Intake: Intake, IV Titration 122.300 Amount Bupivacaine (Pf) 0.5% 31. 122.300 3 ml fentaNYL (PF) 1,250 mcg In Sodium Chloride 0. 9% 194 ml @ Per Protocol EPIDURAL .Q0M PRN Rx#: [id number] Oral 780 90 Output: Chest Tube Drainage 30 Left Anterior Chest 30 Left Posterior Chest 0 Urine 1700 2930 Stool 4 4 Other: Voiding Method Urinal Urinal Urinal # Voids 3 2 1 # Bowel Movements 1 0 - Exam Head exam was generally normal. There was no scleral icterus or corneal arcus. Mucous membranes were moist.Neck was supple and without jugular venous distension, thyromegaly, or carotid bruits. Carotids were easily palpable bilaterally. There was no adenopathy. Lung sounds are diminished in the left lung compared to the right and the patient's surgical incision site is dry clean . 2 posterior one anterior chest tube can be localized attached to the Pleur-evac.Cardiac exam revealed the PMI to be normally situated and sized. The rhythm was regular and no extrasystoles were noted during several minutes of auscultation. The first and second heart sounds were normal and physiologic splitting of the second heart sound was noted. There were no murmurs, rubs, clicks, or gallops.Abdominal exam revealed normal bowel sounds. The abdomen was soft, non-tender, and without masses, organomegaly, or appreciable enlargement of the abdominal aorta.Examination of the extremities revealed easily palpable radial, femoral and pedal pulses. There was no cyanosis, clubbing or edema.Examination of the skin revealed no evidence of significant rashes, suspicious appearing nevi or other concerning lesions. Neurologically patient is awake and alert and there is no focal neurological deficit at this point. The patient also has a epidural catheter for pain control. - Labs CBC & Chem 7: 11/21/17 05:43 11/22/17 05:45 Labs: Abnormal Lab Results - Last 24 Hours (Table) 11/22/17 Range/Units 05:45 Sodium 136 L (137-145) mmol/L BUN 44 H (9-20) mg/dL Glucose 127 H (74-99) mg/dL Microbiology - Last 24 Hours (Table) 11/18/17 11:30 Anaerobic Culture - Final Pleural Fluid 11/18/17 11:30 Gram Stain - Final Pleural Fluid Body Fluid Culture - Final 11/18/17 09:02 Gram Stain - Final Lung - Left Tissue Culture - Final 11/18/17 09:02 Anaerobic Culture - Final Lung - Left Assessment and Plan Assessment: 1 left lung empyema status post thoracotomy and decortication the patient is postop day #3. The chest x-ray from today shows subcu emphysema along the left chest area. The chest tubes are all in place. Output has been minimal. The chest tubes were removed. The epidural catheter will be also removed. The patient will be encouraged use of incentive spirometer. 2 recent hospitalization for left lung pneumonia 3 acute hypoxic respiratory failure secondary to left lung empyema and pneumonia , improving and the patient is currently on room air. 4 chronic pain 5 fibromyalgia 6 degenerative arthritis 7 single bout of atrial fibrillation recovered and the patient's rhythm is back to sinus 8 hypertension 9 hyperlipidemia 10 smoker 11 acute kidney injury on top of chronic renal failure and creatinine is up to 2.7 and the patient was placed on IV fluids with half-normal saline today to 75 mL an hour. Recommendation: Continue present treatment plan, agree with discharge planning, follow-up on outpatient basis. Time with Patient: Less than 30
--- NOTE | 2017-11-22 17:48 | PN ---
PROGRESS NOTE DATE OF SERVICE: 11/22/2017 PRESENTING COMPLAINT: Left lung decortication. INTERVAL HISTORY: Patient is status post left decortication. Chest tubes were removed. Breathing much better. Has been up in the hallway. Did have a bowel movement. Feeling much better. Also had acute renal failure. Making good urine output. REVIEW OF SYSTEMS: Done for constitutional, cardiovascular, GI, pulmonary; relevant findings as above. CURRENT MEDICATIONS: Reviewed. PHYSICAL EXAMINATION: Temperature 97, pulse 90, respiration 16, blood pressure 128/75, pulse ox 91% on room air. GENERAL APPEARANCE: Lying in bed, comfortable, awake, cheerful. EYES: Pupils equal. Conjunctivae normal. HEENT: External appearance of nose and ears normal. Oral cavity normal. NECK: JVD not raised. Mass not palpable. RESPIRATORY: Effort normal. LUNGS: Decreased breath sounds on the left side especially. CARDIOVASCULAR: First and second sounds normal. No edema. ABDOMEN: Soft, nontender. Liver and spleen not palpable. PSYCHIATRY: Alert and oriented x3. Mood and affect normal. INVESTIGATIONS: Potassium 4.7, BUN 44, creatinine 1.11. ASSESSMENT: 1. Left lung decortication secondary to empyema. Now the chest tubes have been taken out. 2. Chronic obstructive pulmonary disease in an ex-smoker. 3. Persistent atrial fibrillation. 4. Chronic fibromyalgia. 5. Obesity; body mass index greater than 35. 6. Chronic pain syndrome. 7. Essential hypertension. 8. Acute renal failure, likely acute tubular necrosis from a combination of patient being on PHYLLIS inhibitor and Motrin, which is now actually improving. 9. Hypoalbuminemia as an acute phase reactant. 10.Hyperkalemia from acute renal failure, improved after receiving Kayexalate. PLAN: Patient's blood pressure is running well controlled. I do not see any need for putting the patient back on an HPYLLIS inhibitor or his diuretic currently. Also once his IV fluids are discontinued, the blood pressure will further come down. Care was discussed with the patient. Overall doing much better. MMODL / IJN: [id number] /
[2017-11-22 18:26] VITALS: BP 144/68; PULSE 90; TEMP 98
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
--- NOTE | 2017-11-23 09:24 | P.DS ---
Providers Date of admission: 11/18/17 06:06 Expected date of discharge: 11/22/17 Attending physician: Wayne Noonan Consults: 11/18/17 12:03 Consult Physician Routine Consulting Provider: Esthela Abel Consult Reason/Comments: post vats decortication Do you want consulting provider notified?: Yes 11/18/17 12:59 Consult Physician Routine Consulting Provider: Fidel Chiu Consult Reason/Comments: medical management Do you want consulting provider notified?: Yes 11/21/17 16:39 Consult Physician Routine Consulting Provider: Rubens Blake Consult Reason/Comments: Empyema Do you want consulting provider notified?: Yes Primary care physician: Stated None - Discharge Diagnosis(es) (1) Chronic pain Status: Chronic (2) Degenerative arthritis Status: Chronic (3) Elevated serum creatinine Status: Acute (4) Empyema, left Status: Chronic (5) Fibromyalgia Status: Chronic (6) History of atrial fibrillation Status: Resolved (7) History of pneumonia Status: Resolved (8) Hyperlipidemia Status: Chronic (9) Hypertension Status: Chronic Hospital Course: FINAL DIAGNOSIS: 1. Empyema left chest 2. Hypertension 3. Hyperlipidemia 4. Recent left lung pneumonia 5. Chronic pain syndrome 6. Gout 7. Degenerative arthritis 8. Degenerative disc disease involving the lumbar spine 9. History of paroxysmal atrial fibrillation 10. History of nicotine dependence 11. Chronic anxiety PRINCIPAL PROCEDURE: 1. Elective left thoracotomy 2. Complete decortication of the left lung 3. Cryoablation of the intercostal nerves 5, 6, 7, and 8 HISTORY OF PRESENT ILLNESS: This 47-year-old gentleman had been somewhat ill since May 2017 with complaints of shortness of breath, coughing, low- grade fever, fatigue and decreased energy. He was worked up over the winter and found to have a large left-sided pleural effusion. Computed tomography scan performed on October 21 demonstrated a large loculated left pleural effusion with compressive atelectasis and possible pneumonia at the left base. He followed with Dr. Gaston and was treated with antibiotics and encouraged to quit smoking. Subsequently he underwent an ultrasound of the chest which demonstrated small pleural effusion which was not felt to be appropriate for thoracentesis. He did have a pulmonary function test done which demonstrated chronic obstructive pulmonary disease with a restrictive component. Subsequently he was referred to Dr. Noonan as it was felt that his pulmonary process would not resolve without lung decortication. He was seen in consultation with Dr. Noonan, all risks and benefits of the procedure were explained, and the patient was willing to proceed with surgery. HOSPITAL COURSE: The patient was brought to the hospital on 11/18/2017, taken to the preoperative area, prepared in usual fashion, and subsequently taken to the operating room where Dr. Noonan performed an elective left thoracotomy, complete decortication of the left lung, and cryoablation of the intercostal nerves 5, 6, 7, and 8. Upon completion of surgery the patient was extubated, transferred to the post anesthesia care unit where he was recovered, monitored hemodynamically, and was eventually admitted to [address] [place] [address] for further monitoring and rehabilitation. He continued to have issues with pain control despite epidural in place secondary to his history of chronic pain syndrome and chronic narcotic dependence, however his pain was much better controlled once his chest tube was removed on postop day #3. His oxygen was titrated down, he was tolerating oral intake, ambulating without assistance, and was ready to be discharged home on postoperative day #4. He was seen by infectious disease for antibiotic management. He received written and verbal instruction regarding his medications, activity restrictions, signs and symptoms requiring physician notification, and follow-up appointments. COMPLICATIONS: The patient experienced no postoperative complications. Patient Condition at Discharge: Stable Plan - Discharge Summary Discharge Rx Participant: Yes New Discharge Prescriptions: New Amoxic-Pot Clav 875-125Mg [Augmentin 875-125] 1 tab PO Q12HR #42 tablet Continue Lisinopril-Hctz 20-25 mg [Zestoretic 20-25] 1 tab PO DAILY Fenofibrate 160 mg PO DAILY DULoxetine HCL [Cymbalta] 60 mg PO BID busPIRone HCL 15 mg PO BID Aspirin 81 mg PO DAILY chew Baclofen [Lioresal] 5 mg PO TID PRN #40 tablet PRN Reason: Spasms Diltiazem Oral [Cardizem*] 90 mg PO TID #90 tab Nicotine 14Mg/24Hr Patch [Habitrol] 1 patch TRANSDERM DAILY #30 patch Pregabalin [Lyrica] 150 mg PO BID #60 cap risperiDONE 0.5 mg PO TID #21 tablet Ipratropium-Albuterol Nebulize [Duoneb 0.5 mg-3 mg/3 ml Soln] 3 ml INHALATION RT-QID guaiFENesin [Mucinex] 1,200 mg PO BID Cholecalciferol (Vitamin D3) [Vitamin D3] 2,000 unit PO DAILY HYDROcodone/APAP 5-325MG [[place] 5-325] 1 tab PO BID #10 tab oxyCODONE ER [OxyCONTIN] 20 mg PO Q12HR #10 tab.er.12h Discontinued Naproxen [Naprosyn] 500 mg PO BID PRN PRN Reason: Pain Discharge Medication List DULoxetine HCL [Cymbalta] 60 mg PO BID 10/17/17 [History] Fenofibrate 160 mg PO DAILY 10/17/17 [History] Lisinopril-Hctz 20-25 mg [Zestoretic 20-25] 1 tab PO DAILY 10/17/17 [History] busPIRone HCL 15 mg PO BID 10/17/17 [History] Aspirin 81 mg PO DAILY chew 10/22/17 [Rx] Baclofen [Lioresal] 5 mg PO TID PRN #40 tablet 10/22/17 [Rx] Diltiazem Oral [Cardizem*] 90 mg PO TID #90 tab 10/22/17 [Rx] Nicotine 14Mg/24Hr Patch [Habitrol] 1 patch TRANSDERM DAILY #30 patch 10/22/17 [ Rx] Pregabalin [Lyrica] 150 mg PO BID #60 cap 10/22/17 [Rx] risperiDONE 0.5 mg PO TID #21 tablet 10/22/17 [Rx] Cholecalciferol (Vitamin D3) [Vitamin D3] 2,000 unit PO DAILY 11/17/17 [History] Ipratropium-Albuterol Nebulize [Duoneb 0.5 mg-3 mg/3 ml Soln] 3 ml INHALATION RT -QID 11/17/17 [History] guaiFENesin [Mucinex] 1,200 mg PO BID 11/17/17 [History] Amoxic-Pot Clav 875-125Mg [Augmentin 875-125] 1 tab PO Q12HR #42 tablet [Rx] HYDROcodone/APAP 5-325MG [[place] 5-325] 1 tab PO BID #10 tab 11/22/17 [Rx] oxyCODONE ER [OxyCONTIN] 20 mg PO Q12HR #10 tab.er.12h 11/22/17 [Rx] Follow up Appointment(s)/Referral(s): Wayne Noonan MD [STAFF PHYSICIAN] - 2 Weeks Patric Granda DO [STAFF PHYSICIAN] - 1 Week Braden Gaston DO [Doctor of Osteopathic Medicine] - 2 Weeks Patient Instructions/Handouts: Thoracotomy (DC), Pleural Empyema (DC) Activity/Diet/Wound Care/Special Instructions: DISCHARGE INSTRUCTIONS: 1. No driving for 2 weeks, or until physician gives their ok. 2. The patient should sleep in their own bed, no medical bed needed. 3. Stairs are not an issue. If the bedroom is upstairs, it is advised that the patient go up at night and down in the morning for the first week. Go slowly, using handrail and take 1 step at a time. 4. No lifting, pushing, or pulling more than 10 pounds for 2 weeks. The physician will advise of any restriction changes. 5. The patient is expected to continue the prescribed walking program. 6. Continue pain control per as needed orders. 7. Continue with incentive spirometry and splinting/heart hugger until otherwise directed by the physician. 8. Must shower daily using liquid antibacterial soap on incisions. 9. Routine incision care. No powders, lotions, ointments on incisions. 10. Please call surgeon/THREADING MACHINE OPERATOR for temp greater than 101 F or purulent drainage from incisions. Discharge Disposition: HOME SELF-CARE
== END 2017-11-22 19:05 | disposition home or self-care (01) | DRG 163 ==
LOC: 2ORWHC 06:06 → 6SEL 12:15
PROVIDERS: ADMIT Thoracic Surgery (Cardiothoracic Vascular Surgery); ATTEND Thoracic Surgery (Cardiothoracic Vascular Surgery)
PROC: 01580ZZ Destruction of Thoracic Nerve, Open Approach (ICD-10-PCS; 2017-11-18)
PROC: 0BNL0ZZ Release Left Lung, Open Approach (ICD-10-PCS; principal; 2017-11-18 08:00)
DX: J86.9 Pyothorax without fistula (principal); J96.01 Acute respiratory failure with hypoxia; N17.0 Acute kidney failure with tubular necrosis; J18.9 Pneumonia, unspecified organism; F11.20 Opioid dependence, uncomplicated; E88.09 Other disorders of plasma-protein metabolism, not elsewhere classified; E87.5 Hyperkalemia; I48.0 Paroxysmal atrial fibrillation; J98.11 Atelectasis; T81.82XA Emphysema (subcutaneous) resulting from a procedure, initial encounter; I12.9 Hypertensive chronic kidney disease with stage 1 through stage 4 chronic kidney disease, or unspecified chronic kidney disease; E78.5 Hyperlipidemia, unspecified; M10.9 Gout, unspecified; G89.4 Chronic pain syndrome; F17.210 Nicotine dependence, cigarettes, uncomplicated; N18.9 Chronic kidney disease, unspecified; J44.9 Chronic obstructive pulmonary disease, unspecified; M51.36 Other intervertebral disc degeneration, lumbar region; F41.9 Anxiety disorder, unspecified; E66.9 Obesity, unspecified; M79.7 Fibromyalgia; M19.91 Primary osteoarthritis, unspecified site; Z68.32 Body mass index [BMI] 32.0-32.9, adult; Z79.1 Long term (current) use of non-steroidal anti-inflammatories (NSAID); Z79.82 Long term (current) use of aspirin; Z79.899 Other long term (current) drug therapy; Z86.718 Personal history of other venous thrombosis and embolism; Z96.641 Presence of right artificial hip joint; Z96.651 Presence of right artificial knee joint; Z98.1 Arthrodesis status; Z89.022 Acquired absence of left finger(s); Z89.021 Acquired absence of right finger(s); Z87.01 Personal history of pneumonia (recurrent); Y83.6 Removal of other organ (partial) (total) as the cause of abnormal reaction of the patient, or of later complication, without mention of misadventure at the time of the procedure
CPT/HCPCS: 71045; 71046; 76770; 80048; 80053; 81003; 82271; 85025; 86850; 86900; 86901; 87070; 87075; 87102; 87205; 88305; 94640; 94760

== ENCOUNTER 2020-06-05 10:51 | Inpatient (IN) | payer OTHER ==
--- NOTE | 2020-06-05 11:31 | ED ---
General Adult HPI - General Chief complaint: Shortness of Breath Stated complaint: SOB maggots in nose Time Seen by Provider: 06/05/20 10:55 Source: patient, RN notes reviewed, old records reviewed Mode of arrival: wheelchair Limitations: no limitations - History of Present Illness Initial comments: This is a 50-year-old male who presents emergency Department stating he's been coughing for 6 months and coughing up quite a bit of sputum. Patient states he also thinks there are maggots coming out of his nose. Patient states if I look up there or in his mouth I she will see them however when I look there is nothing there and he states that maybe they aren't maggots then. Patient states she's had no fever or chills. Patient states she's been short of breath for 6 months. Patient states his symptoms have not altered in 6 months but he was unable to come in because he was taking care of his mother and now his brothers in a fpc so he could come in. Patient states he is a smoker and continues to smoke. Patient denies any chest pain or palpitations. Patient denies headache patient denies numbness weakness. Patient denies any injury or trauma. Patient denies any swelling to the legs or calf tenderness. Patient states he is on a pain contract because he has chronic pain and the pain continues today but is no different. - Related Data Home Medications Medication Instructions Recorded Confirmed DULoxetine HCL [Cymbalta] 60 mg PO BID 10/17/17 11/18/17 Fenofibrate 160 mg PO DAILY 10/17/17 11/18/17 Lisinopril-Hctz 20-25 mg 1 tab PO DAILY 10/17/17 11/18/17 [Zestoretic 20-25] busPIRone HCL 15 mg PO BID 10/17/17 11/18/17 Cholecalciferol (Vitamin D3) 2,000 unit PO DAILY 11/17/17 11/18/17 [Vitamin D3] Ipratropium-Albuterol Nebulize 3 ml INHALATION RT-QID 11/17/17 11/18/17 [Duoneb 0.5 mg-3 mg/3 ml Soln] guaiFENesin [Mucinex] 1,200 mg PO BID 11/17/17 11/18/17 Previous Rx's Medication Instructions Recorded Aspirin 81 mg PO DAILY chew 10/22/17 Baclofen [Lioresal] 5 mg PO TID PRN #40 tablet 10/22/17 Diltiazem Oral [Cardizem*] 90 mg PO TID #90 tab 10/22/17 Nicotine 14Mg/24Hr Patch [Habitrol] 1 patch TRANSDERM DAILY #30 patch 10/22/17 Pregabalin [Lyrica] 150 mg PO BID #60 cap 10/22/17 risperiDONE 0.5 mg PO TID #21 tablet 10/22/17 Amoxic-Pot Clav 875-125Mg 1 tab PO Q12HR #42 tablet 11/22/17 [Augmentin 875-125] HYDROcodone/APAP 5-325MG [[place] 1 tab PO BID #10 tab 11/22/17 5-325] oxyCODONE ER [OxyCONTIN] 20 mg PO Q12HR #10 tab.er.12h 11/22/17 Allergies Allergy/AdvReac Type Severity Reaction Status Date / Time No Known Allergies Allergy Verified 06/05/20 10:53 Review of Systems ROS Statement: Those systems with pertinent positive or pertinent negative responses have been documented in the HPI. ROS Other: All systems not noted in ROS Statement are negative. Past Medical History Past Medical History: Chest Pain / Angina, Fibromyalgia, Hyperlipidemia, H ypertension, Pneumonia, Respiratory Disorder Additional Past Medical History / Comment(s): Left lung pneumonia/empyema, gout, chronic fibromyalgia, chronic lower back pain, degenerative arthritis, history of degenerative disc disease involving the lumbar spine, hypertension, hyperlipidemia, atrial fibrillation as the patient went into atrial fibrillation during her hospitalization for a left lower lobe pneumonia back in October 2017 and subsequently he converted back to normal sinus. Echocardiogram done preoperatively showed a preserved LV function. He has chronic anxiety. 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 Patient is nontoxic and well- hydrated and is in mild distress. ENT: Neck is soft and supple. No significant lymphadenopathy is noted. Oropharynx is clear. Moist mucous membranes. Neck has full range of motion without jhonathan citing any pain. I looked for any signs of maggots in the nose or mouth and there were none. EYES: The sclera were anicteric and conjunctiva were pink and moist. Extraocular movements were intact and pupils were equal round and reactive to light. Eyelids were unremarkable. PULMONARY: Unlabored respirations. Good breath sounds bilaterally. No audible rales rhonchi or wheezing was noted. CARDIOVASCULAR: There is a regular rate and rhythm without any murmurs gallops or rubs. ABDOMEN: Soft and nontender with normal bowel sounds. SKIN: Skin is clear with no lesions or rashes and otherwise unremarkable. NEUROLOGIC: Patient is alert and oriented x3. Cranial nerves II through XII are grossly intact. Motor and sensory are also intact. Normal speech, volume and content. Symmetrical smile. MUSCULOSKELETAL: Normal extremities with adequate strength and full range of motion. No lower extremity swelling or edema. No calf tenderness. LYMPHATICS: No significant lymphadenopathy is noted PSYCHIATRIC: Normal psychiatric evaluation. Limitations: no limitations Course Vital Signs 06/05/20 10:53 Temperature 97.9 F Pulse Rate 117 H Respiratory 20 Rate Blood Pressure 156/86 O2 Sat by Pulse 96 Oximetry Medical Decision Making - Medical Decision Making EKG shows sinus tachycardia at 114 bpm MN interval is 148 QRS is 60 QT interval 300 QTC is 413. Patient's EKG shows no ST segment elevation or depression. Chest x-ray shows possible ephedrine the left base that was diagnosed at 1245. Patient was given Rocephin immediately. Patient was also started on insulin drip after insulin bolus for the DKA. Patient comes back in the room because he thought he had multiple maggots on his fingers and he was showing me pieces of tissue or phlegm on his hands none of which were maggots. - Lab Data Result diagrams: 06/05/20 11:43 06/05/20 11:43 Lab Results 06/05/20 06/05/20 06/05/20 Range/Units 11:43 11:43 11:43 WBC 12.1 H (3.8-10.6) k/uL RBC 5.20 (4.30-5.90) m/uL Hgb 16.1 (13.0-17.5) gm/dL Hct 49.3 (39.0-53.0) % MCV 94.9 (80.0-100.0) fL MCH 31.0 (25.0-35.0) pg MCHC 32.7 (31.0-37.0) g/dL RDW 14.4 (11.5-15.5) % Plt Count 354 (150-450) k/uL Neutrophils % 80 % Lymphocytes % 15 % Monocytes % 4 % Eosinophils % 0 % Basophils % 1 % Neutrophils # 9.6 H (1.3-7.7) k/uL Lymphocytes # 1.8 (1.0-4.8) k/uL Monocytes # 0.5 (0-1.0) k/uL Eosinophils # 0.0 (0-0.7) k/uL Basophils # 0.1 (0-0.2) k/uL PT 9.7 (9.0-12.0) sec INR 0.9 (<1.2) APTT 22.6 (22.0-30.0) sec Sodium 119 L* (137-145) mmol/L Potassium 5.6 H (3.5-5.1) mmol/L Chloride 81 L (98-107) mmol/L Carbon Dioxide 11 L (22-30) mmol/L Anion Gap 27 mmol/L BUN 33 H (9-20) mg/dL Creatinine 0.82 (0.66-1.25) mg/dL Est GFR (CKD-EPI)AfAm >90 (>60 ml/min/1.73 sqM) Est GFR (CKD-EPI)NonAf >90 (>60 ml/min/1.73 sqM) Glucose 724 H* (74-99) mg/dL Plasma Lactic Acid Jase (0.7-2.0) mmol/L Calcium 10.2 (8.4-10.2) mg/dL Magnesium 1.8 (1.6-2.3) mg/dL Total Bilirubin 0.6 (0.2-1.3) mg/dL AST 20 (17-59) U/L ALT 33 (4-49) U/L Alkaline Phosphatase 155 H (38-126) U/L Troponin I (0.000-0.034) ng/mL Total Protein 7.4 (6.3-8.2) g/dL Albumin 4.3 (3.5-5.0) g/dL 06/05/20 06/05/20 Range/Units 11:43 11:43 WBC (3.8-10.6) k/uL RBC (4.30-5.90) m/uL Hgb (13.0-17.5) gm/dL Hct (39.0-53.0) % MCV (80.0-100.0) fL MCH (25.0-35.0) pg MCHC (31.0-37.0) g/dL RDW (11.5-15.5) % Plt Count (150-450) k/uL Neutrophils % % Lymphocytes % % Monocytes % % Eosinophils % % Basophils % % Neutrophils # (1.3-7.7) k/uL Lymphocytes # (1.0-4.8) k/uL Monocytes # (0-1.0) k/uL Eosinophils # (0-0.7) k/uL Basophils # (0-0.2) k/uL PT (9.0-12.0) sec INR (<1.2) APTT (22.0-30.0) sec Sodium (137-145) mmol/L Potassium (3.5-5.1) mmol/L Chloride (98-107) mmol/L Carbon Dioxide (22-30) mmol/L Anion Gap mmol/L BUN (9-20) mg/dL Creatinine (0.66-1.25) mg/dL Est GFR (CKD-EPI)AfAm (>60 ml/min/1.73 sqM) Est GFR (CKD-EPI)NonAf (>60 ml/min/1.73 sqM) Glucose (74-99) mg/dL Plasma Lactic Acid Jase 1.2 (0.7-2.0) mmol/L Calcium (8.4-10.2) mg/dL Magnesium (1.6-2.3) mg/dL Total Bilirubin (0.2-1.3) mg/dL AST (17-59) U/L ALT (4-49) U/L Alkaline Phosphatase (38-126) U/L Troponin I <0.012 (0.000-0.034) ng/mL Total Protein (6.3-8.2) g/dL Albumin (3.5-5.0) g/dL Critical Care Time Critical Care Time: Yes Total Critical Care Time: 35 Disposition Clinical Impression: Diabetic ketoacidosis, Pneumonia Disposition: ADMITTED IP TO THIS HOSP Referrals: Tiffanie Cannon MD [Primary Care Provider] - 1-2 days Time of Disposition: 12:57
[2020-06-05 12:16] LABS: Basophils # (A) 0.1 k/uL (0-0.2); Basophils % (A) 1 %; Eosinophils % (A) 0 %; HCT 49.3 % (39.0-53.0); HGB 16.1 gm/dL (13.0-17.5); Lymphocytes # (A) 1.8 k/uL (1.0-4.8); Lymphocytes % (A) 15 %; MCHC 32.7 g/dL (31.0-37.0); MCV 94.9 fL (80.0-100.0); Monocytes # (A) 0.5 k/uL (0-1.0); Monocytes % (A) 4 %; Neutrophils # (A) 9.6 k/uL (1.3-7.7); Neutrophils % (A) 80 %; Platelet Count 354 k/uL (150-450); RDW 14.4 % (11.5-15.5); WBC 12.1 k/uL (3.8-10.6)
[2020-06-05 12:22] LABS: ALT 33 U/L (4-49); AST 20 U/L (17-59); African American GFR (CKD) >90 (>60 ml/min/1.73 sqM); Albumin 4.3 g/dL (3.5-5.0); Alkaline Phosphatase 155 U/L (38-126); Anion Gap 27 mmol/L; Blood Urea Nitrogen 33 mg/dL (9-20); Calcium 10.2 mg/dL (8.4-10.2); Carbon Dioxide 11 mmol/L (22-30); Chloride 81 mmol/L (98-107); Magnesium 1.8 mg/dL (1.6-2.3); Non-African American GFR(CKD) >90 (>60 ml/min/1.73 sqM); Potassium 5.6 mmol/L (3.5-5.1); Total Bilirubin 0.6 mg/dL (0.2-1.3); Total Protein 7.4 g/dL (6.3-8.2)
[2020-06-05 12:35] LABS: Glucose 724 mg/dL (74-99); Sodium 119 mmol/L (137-145)
[2020-06-05 12:41] LABS: INR 0.9 (<1.2); Partial Thromboplastin Time 22.6 sec (22.0-30.0); Prothrombin Time 9.7 sec (9.0-12.0)
[2020-06-05] MEDS ORDERED: INSULIN REGULAR BOLUS (FROM DRIP BAG) IV ONE (12:42)
[2020-06-05] MEDS ORDERED: SODIUM CHLORIDE 0.9% 2,000 ML IV ONE (12:47)
--- NOTE | 2020-06-05 12:52 | XR ---
EXAMINATION TYPE: XR chest 2V DATE OF EXAM: 06/05/2020 COMPARISON: TECHNIQUE: PA and lateral views submitted. HISTORY: Difficulty breathing FINDINGS: Diffuse emphysematous changes with cardiomegaly and bilateral pleural thickening. Asymmetric right ap ical pleural thickening. Findings similar to the prior exam given differences in technique. No sizabl e pneumothorax. No overt failure. Heart size stable. Appears to be a rib deformity along the lateral margin of the left lower rib cage suggestive previous fracture. IMPRESSION: 1. COPD with left basilar atelectasis or infiltrate and small pleural effusion or pleural thickening.
[2020-06-05] MEDS ORDERED: cefTRIAXone IN SWFI 1,000 MG/10 ML SYRINGE IVP STA (12:56)
[2020-06-05] MEDS ORDERED: INSULIN REGULAR 100 UNIT in SODIUM CHLORIDE 0.9% 100 ML IV SCH (13:00)
[2020-06-05] MEDS: INSULIN REGULAR 100 UNIT in SODIUM CHLORIDE 0.9% 100 ML IV SCH ×2 (13:31→16:34)
[2020-06-05 14:14] LABS: Glucose,Whole Blood 578 mg/dL (75-99)
[2020-06-05] MEDS ORDERED: IPRATROPIUM-ALBUTEROL 3 ML NEB INHALATION PRN (14:23)
[2020-06-05] MEDS ORDERED: PNEUMOCOCCAL VACC-PNEUMOVAX 23 25 MCG/0.5 ML VIAL IM ONE (14:53)
[2020-06-05 15:35] LABS: Glucose,Whole Blood 463 mg/dL (75-99)
[2020-06-05 15:55] LABS: African American GFR (CKD) >90 (>60 ml/min/1.73 sqM); Anion Gap 19 mmol/L; Blood Urea Nitrogen 28 mg/dL (9-20); Carbon Dioxide 13 mmol/L (22-30); Chloride 91 mmol/L (98-107); Glucose 441 mg/dL (74-99); Non-African American GFR(CKD) >90 (>60 ml/min/1.73 sqM); Phosphorus 3.9 mg/dL (2.5-4.5); Potassium 3.8 mmol/L (3.5-5.1); Sodium 123 mmol/L (137-145)
[2020-06-05] MEDS: SODIUM CHLORIDE 0.9% 1,000 ML IV SCH ×2 (16:09→19:04)
[2020-06-05 16:30] LABS: Glucose,Whole Blood 414 mg/dL (75-99)
[2020-06-05] MEDS: PREGABALIN 100 MG CAP PO SCH ×2 (16:30→20:53)
[2020-06-05] MEDS: oxyCODONE-APAP 10-325MG 1 EACH TAB PO SCH ×2 (16:30→20:53)
[2020-06-05] MEDS: HEPARIN SODIUM,PORCINE 5,000 UNIT/ML 1 ML VIAL SQ SCH (16:32)
[2020-06-05] MEDS: AZITHROMYCIN 500 MG TAB PO SCH (16:33)
[2020-06-05 17:54] LABS: Glucose,Whole Blood 367 mg/dL (75-99)
[2020-06-05 18:34] LABS: Glucose,Whole Blood 350 mg/dL (75-99)
[2020-06-05] MEDS: D5-0.45% NACL WITH KCL 20MEQ/L 1,000 ML IV SCH ×2 (19:04→22:42)
[2020-06-05] MEDS: HYDROcodone/APAP 7.5-325MG 1 EACH TAB PO PRN (19:05)
[2020-06-05 19:49] LABS: Glucose,Whole Blood 344 mg/dL (75-99)
[2020-06-05 20:48] LABS: Glucose,Whole Blood 265 mg/dL (75-99)
[2020-06-05] MEDS ORDERED: HYDROcodone/APAP 7.5-325MG 1 EACH TAB PO SCH (21:00)
--- NOTE | 2020-06-05 21:37 | P.HPIM ---
History of Present Illness H&P Date: 06/05/20 Chief Complaint: Cough Patient is a 50-year-old male with a known history of fibromyalgia, hypertension, gout, chronic low back pain and degenerative joint disease, hyperlipidemia and anxiety and also marijuana use as well as currently everyday smoker presents to ER with complaints of chronic cough for the past 6 months. Patient was seen by his primary care physician and was placed on antibiotics and Medrol Dosepak. Patient also thinks they are nighters coming out of his nose. No bowel movement gas was noted in the ER. Otherwise patient denied any complaints of fever or chills. Patient always has short of breath at baseline. Patient states that he has been having regular urination and is drinking 5 gallons of water daily. Patient was unable to come to the hospital because he was taking care of his mother and now his brother in the long term so he could come to the hospital. Patient continues to smoke otherwise. No complaints of chest pain. No headache or dizziness or lightheadedness. No numbness or weakness. No recent trauma. Denies any worsening leg swelling. Chest x-ray showed COPD with left basilar atelectasis or infiltrate and small pleural effusion or pleural thickening. Laboratory data showed WBC 12.1, hemoglobin 16.1 and platelets 354 Sodium 119 and potassium 5.6, chloride 81, bicarb is 11 and BUN 33 and creatinine 0.82 blood sugar was 724 Lactic acid 1.2 Acetone positive Troponin x1-. Review of Systems Constitutional: Patient denies any fever or chills . generalized weakness . no weight loss. Abdomen: Patient denied nausea vomiting and diarrhea and abdominal pain. Cardiovascular: Patient denies any chest pain or short of breath no palpitations. Respiratory: patient does have cough no sputum production. shortness of breath Neurologic: Patient denied any numbness or tingling headache. Musculoskeletal: Patient denies any complaints of joint swelling or deformity. back pain Skin: Negative Psychiatric: Negative Endocrine: No heat or cold intolerance. No recent weight gain. Genitourinary: No dysuria or hematuria. All other 14 point ROS negative except the above Past Medical History Past Medical History: Chest Pain / Angina, Fibromyalgia, Hyperlipidemia, Hypertension, Pneumonia, Respiratory Disorder Additional Past Medical History / Comment(s): Left lung pneumonia/empyema, gout, chronic fibromyalgia, chronic lower back pain, degenerative arthritis, history of degenerative disc disease involving the lumbar spine, hypertension, hyperlipidemia, atrial fibrillation as the patient went into atrial fibrillation during her hospitalization for a left lower lobe pneumonia back in October 2017 and subsequently he converted back to normal sinus. Echocardiogram done preoperatively showed a preserved LV function. He has chronic anxiety. History of Any Multi-Drug Resistant Organisms: None Reported Past Surgical History: Back Surgery, Joint Replacement, Orthopedic Surgery Additional Past Surgical History / Comment(s): rt hip replacement, rt knee replacement, left knee surgery with metal, neck fusion, lower back surgery, traumatic amputation rt index finger, left index finger tip amputation from injury Past Anesthesia/Blood Transfusion Reactions: Blood Transfusion Reaction Additional Past Anesthesia/Blood Transfusion Reaction / Comment(s): pt states some limited neck movement due to previous surgery, " I got degenerative bone disease from a blood transfusion", "I woke up in the middle of knee surgery" Past Psychological History: No Psychological Hx Reported Smoking Status: Current every day smoker Past Alcohol Use History: None Reported Past Drug Use History: Marijuana - Past Family History Mother Family Medical History: No Reported History Additional Family Medical History / Comment(s): enlarged heart Father Family Medical History: No Reported History Additional Family Medical History / Comment(s): Father lived to be 101 yrs old. Medications and Allergies Home Medications Medication Instructions Recorded Confirmed Type Albuterol Sulfate [Albuterol 2 puff PO RT-QID PRN 06/05/20 06/05/20 History Sulfate Hfa] Azithromycin [Zithromax Z-pack (6 See Taper PO DIRECTED 06/05/20 06/05/20 History tabs)] DULoxetine HCL [Cymbalta] 60 mg PO DAILY 06/05/20 06/05/20 History Dexamethasone [Decadron] 4 mg PO Q72H 06/05/20 06/05/20 History Diazepam [Valium] 10 mg PO HS 06/05/20 06/05/20 History Diphenoxylate HCl/Atropine 1 tab PO TID PRN 06/05/20 06/05/20 History [Lomotil 2.5-0.025 mg Tablet] Hydrocodone/Acetaminophen [[place]lee 1 tab PO BID 06/05/20 06/05/20 History 7.5-325] Ipratropium Lacey [Atrovent Hfa] 2 puff INHALATION RT-QID 06/05/20 06/05/20 History Losartan Potassium [Cozaar] 100 mg PO DAILY 06/05/20 06/05/20 History Naproxen 500 mg PO BID 06/05/20 06/05/20 History Pregabalin [Lyrica] 200 mg PO TID 06/05/20 06/05/20 History Promethazine HCl [Phenergan Syrup] 6.25 mg PO BID 06/05/20 06/05/20 History methylPREDNISolone [Medrol Dose See Taper PO DIRECTED 06/05/20 06/05/20 History Pack] oxyCODONE HCL/ACETAMINOPHEN 1 tab PO TID 06/05/20 06/05/20 History [Percocet 10-325 mg] Allergies Allergy/AdvReac Type Severity Reaction Status Date / Time No Known Allergies Allergy Verified 06/05/20 13:35 Physical Exam Vitals: Vital Signs Temp Pulse Resp BP Pulse Ox 06/05/20 10:53 97.9 F 117 H 20 156/86 96 Intake and Output 06/04/20 06/05/20 06/05/20 22:59 06:59 14:59 Other: Weight 181.437 kg PHYSICAL EXAMINATION: Patient is lying in the bed comfortably, no acute distress, awake alert and oriented.Morbidly obese. HEENT: Normocephalic. Neck is supple. Pupils reactive. Nostrils clear. Oral cavity is moist. Ears reveal no drainage. Neck reveals no JVD, carotid bruits, or thyromegaly. CHEST EXAMINATION: Trachea is central. Symmetrical expansion. Bibasilar diminished air entry. Lung warner clear to auscultation and percussion. CARDIAC: Normal S1, S2 with no gallops. No murmurs ABDOMEN: Soft. Bowel sounds normal. No organomegaly. No abdominal bruits. Extremities: reveal no edema. No clubbing or cyanosis Neurologically awake, alert, oriented x3 with well-coordinated movements. No focal deficits noted Skin: No rash or skin lesions. Psychiatric: Coperative. Nonsuicidal. anxious Musculoskeletal: No joint swelling or deformity. Normal range of motion. Results CBC & Chem 7: 06/05/20 11:43 06/05/20 15:29 Labs: Abnormal Lab Results - Last 24 Hours (Table) 06/05/20 06/05/20 06/05/20 Range/Units 11:43 11:43 14:12 WBC 12.1 H (3.8-10.6) k/uL Neutrophils # 9.6 H (1.3-7.7) k/uL Sodium 119 L* (137-145) mmol/L Potassium 5.6 H (3.5-5.1) mmol/L Chloride 81 L (98-107) mmol/L Carbon Dioxide 11 L (22-30) mmol/L BUN 33 H (9-20) mg/dL Glucose 724 H* (74-99) mg/dL POC Glucose (mg/dL) 578 H (75-99) mg/dL Alkaline Phosphatase 155 H (38-126) U/L Thrombosis Risk Factor Assmnt - DVT/VTE Prophylaxis DVT/VTE Prophylaxis: Pharmacologic Prophylaxis ordered Assessment and Plan Assessment: Acute diabetic ketoacidosis New onset diabetes likely type II Possible left lower lobe pneumonia Pseudohyponatremia and hypovolemic hyponatremia Severe metabolic acidosis secondary to DKA. No lactic acidosis. Mild hyperkalemia likely due to acidosis Hypertension Fibromyalgia Chronic pain syndrome Chronic low back pain Hyperlipidemia Morbid obesity BMI 46.2 Ongoing nicotine addiction and marijuana use DVT prophylaxis with heparin subcu Plan: Patient will be continued on insulin drip at .1 units/kg/h and continue to monitor electrolytes every 4 hours. Continue with IV hydration and replace electrolytes. Continue with antibiotics and breathing treatments as needed. Smoking cessation has been counseled extensively. Continue with pain management with Percocet. Further recommendations based on the clinical course.
[2020-06-05 21:39] LABS: African American GFR (CKD) >90 (>60 ml/min/1.73 sqM); Anion Gap 10 mmol/L; Blood Urea Nitrogen 22 mg/dL (9-20); Carbon Dioxide 17 mmol/L (22-30); Chloride 97 mmol/L (98-107); Glucose 246 mg/dL (74-99); Non-African American GFR(CKD) >90 (>60 ml/min/1.73 sqM); Phosphorus 3.6 mg/dL (2.5-4.5); Potassium 3.7 mmol/L (3.5-5.1); Sodium 124 mmol/L (137-145)
[2020-06-05 22:19] LABS: Glucose,Whole Blood 231 mg/dL (75-99)
[2020-06-06 00:02] LABS: Glucose,Whole Blood 273 mg/dL (75-99)
[2020-06-06] MEDS: INSULIN REGULAR 100 UNIT in SODIUM CHLORIDE 0.9% 100 ML IV SCH ×3 (00:10→08:32)
[2020-06-06] MEDS: SODIUM CHLORIDE 0.9% 1,000 ML IV SCH ×3 (00:11→16:12)
[2020-06-06] MEDS: HEPARIN SODIUM,PORCINE 5,000 UNIT/ML 1 ML VIAL SQ SCH ×4 (00:13→22:51)
[2020-06-06 01:55] LABS: Glucose,Whole Blood 247 mg/dL (75-99)
[2020-06-06 04:15] LABS: Glucose,Whole Blood 223 mg/dL (75-99)
[2020-06-06] MEDS: D5-0.45% NACL WITH KCL 20MEQ/L 1,000 ML IV SCH ×2 (06:07→16:12)
[2020-06-06 06:20] LABS: Glucose,Whole Blood 205 mg/dL (75-99)
[2020-06-06 08:05] LABS: Glucose,Whole Blood 173 mg/dL (75-99)
[2020-06-06] MEDS: DULoxetine HCL 60 MG CAPSULE.DR PO SCH (09:01)
[2020-06-06] MEDS: AZITHROMYCIN 500 MG TAB PO SCH (09:02)
[2020-06-06] MEDS: PREGABALIN 100 MG CAP PO SCH ×3 (09:02→22:51)
[2020-06-06] MEDS: oxyCODONE-APAP 10-325MG 1 EACH TAB PO SCH ×3 (09:02→22:51)
[2020-06-06 10:04] LABS: Glucose,Whole Blood 141 mg/dL (75-99)
[2020-06-06 11:17] LABS: Glucose,Whole Blood 142 mg/dL (75-99)
[2020-06-06 11:33] LABS: Basophils % (A) 0 %; Eosinophils # (A) 0.3 k/uL (0-0.7); Eosinophils % (A) 3 %; HCT 42.6 % (39.0-53.0); HGB 14.2 gm/dL (13.0-17.5); Lymphocytes # (A) 1.7 k/uL (1.0-4.8); Lymphocytes % (A) 17 %; MCHC 33.3 g/dL (31.0-37.0); Mean Platelet Volume 8.2; Monocytes # (A) 0.4 k/uL (0-1.0); Monocytes % (A) 4 %; Neutrophils # (A) 7.4 k/uL (1.3-7.7); Neutrophils % (A) 75 %; Platelet Count 256 k/uL (150-450); RBC 4.73 m/uL (4.30-5.90); RDW 14.3 % (11.5-15.5); WBC 9.9 k/uL (3.8-10.6)
[2020-06-06 11:36] VITALS: BMI 37.7
[2020-06-06 11:42] LABS: African American GFR (CKD) >90 (>60 ml/min/1.73 sqM); Anion Gap 8 mmol/L; Blood Urea Nitrogen 13 mg/dL (9-20); Calcium 8.4 mg/dL (8.4-10.2); Carbon Dioxide 21 mmol/L (22-30); Chloride 100 mmol/L (98-107); Glucose 148 mg/dL (74-99); Non-African American GFR(CKD) >90 (>60 ml/min/1.73 sqM); Potassium 3.5 mmol/L (3.5-5.1); Sodium 129 mmol/L (137-145)
[2020-06-06 11:55] LABS: Glucose,Whole Blood 249 mg/dL (75-99)
[2020-06-06] MEDS ORDERED: INSULIN NPH 300 UNIT/3 ML VIAL SQ ONE (12:15)
[2020-06-06] MEDS ORDERED: INSULIN DETEMIR (LEVEMIR) 100 UNIT/ML SYR SQ ONE (12:30)
[2020-06-06 13:04] LABS: Glucose,Whole Blood 345 mg/dL (75-99)
[2020-06-06] MEDS: INSULIN ASPART (NovoLOG) 100 UNIT/ML VIAL SQ SCH ×5 (13:10→22:52)
[2020-06-06 14:22] LABS: Glucose,Whole Blood 408 mg/dL (75-99)
[2020-06-06 14:55] LABS: Glucose,Whole Blood 366 mg/dL (75-99)
[2020-06-06] MEDS: HYDROcodone/APAP 7.5-325MG 1 EACH TAB PO PRN (16:05)
[2020-06-06 16:18] LABS: Glucose,Whole Blood 327 mg/dL (75-99)
[2020-06-06 17:00] LABS: Glucose,Whole Blood 288 mg/dL (75-99)
[2020-06-06 20:47] LABS: Glucose,Whole Blood 327 mg/dL (75-99)
[2020-06-06] MEDS: INSULIN DETEMIR (LEVEMIR) 100 UNIT/ML SYR SQ SCH (22:51)
[2020-06-06] MEDS: diazePAM 5 MG TAB PO PRN (22:51)
[2020-06-07] MEDS: SODIUM CHLORIDE 0.9% 1,000 ML IV SCH ×3 (00:10→12:08)
[2020-06-07] MEDS: INSULIN ASPART (NovoLOG) 100 UNIT/ML VIAL SQ SCH ×7 (06:43→20:49)
[2020-06-07 06:46] LABS: Glucose,Whole Blood 336 mg/dL (75-99)
[2020-06-07 08:39] LABS: Basophils # (A) 0.1 k/uL (0-0.2); Basophils % (A) 1 %; Eosinophils # (A) 0.2 k/uL (0-0.7); Eosinophils % (A) 2 %; HCT 40.3 % (39.0-53.0); Lymphocytes # (A) 1.5 k/uL (1.0-4.8); Lymphocytes % (A) 20 %; MCH 31.4 pg (25.0-35.0); MCHC 34.7 g/dL (31.0-37.0); MCV 90.6 fL (80.0-100.0); Mean Platelet Volume 8.8; Monocytes # (A) 0.3 k/uL (0-1.0); Monocytes % (A) 4 %; Neutrophils # (A) 5.1 k/uL (1.3-7.7); Neutrophils % (A) 71 %; Platelet Count 267 k/uL (150-450); RBC 4.45 m/uL (4.30-5.90); RDW 14.6 % (11.5-15.5); WBC 7.2 k/uL (3.8-10.6)
[2020-06-07] MEDS: HEPARIN SODIUM,PORCINE 5,000 UNIT/ML 1 ML VIAL SQ SCH ×3 (08:41→20:49)
[2020-06-07] MEDS: AZITHROMYCIN 500 MG TAB PO SCH (08:41)
[2020-06-07] MEDS: PREGABALIN 100 MG CAP PO SCH ×3 (08:41→20:48)
[2020-06-07] MEDS: DULoxetine HCL 60 MG CAPSULE.DR PO SCH (08:41)
[2020-06-07] MEDS: oxyCODONE-APAP 10-325MG 1 EACH TAB PO SCH ×3 (08:41→20:49)
[2020-06-07 09:05] LABS: African American GFR (CKD) >90 (>60 ml/min/1.73 sqM); Anion Gap 7 mmol/L; Blood Urea Nitrogen 11 mg/dL (9-20); Calcium 8.1 mg/dL (8.4-10.2); Carbon Dioxide 21 mmol/L (22-30); Chloride 98 mmol/L (98-107); Glucose 300 mg/dL (74-99); Non-African American GFR(CKD) >90 (>60 ml/min/1.73 sqM); Potassium 3.8 mmol/L (3.5-5.1); Sodium 126 mmol/L (137-145)
[2020-06-07 11:57] LABS: Glucose,Whole Blood 278 mg/dL (75-99)
[2020-06-07] MEDS: HYDROcodone/APAP 7.5-325MG 1 EACH TAB PO PRN ×2 (12:13→16:19)
[2020-06-07 17:09] LABS: Glucose,Whole Blood 269 mg/dL (75-99)
[2020-06-07 20:21] LABS: Hemoglobin A1C 14.3 % (4.0-6.0)
[2020-06-07 20:40] LABS: Glucose,Whole Blood 343 mg/dL (75-99)
[2020-06-07] MEDS: diazePAM 5 MG TAB PO PRN (20:49)
[2020-06-07] MEDS: INSULIN DETEMIR (LEVEMIR) 100 UNIT/ML SYR SQ SCH (20:49)
--- NOTE | 2020-06-07 22:54 | P.PN ---
Subjective Progress Note Date: 06/06/20 Principal diagnosis: Acute DKA Patient is a 50-year-old male with a known history of fibromyalgia, hypertension, gout, chronic low back pain and degenerative joint disease, hyperl ipidemia and anxiety and also marijuana use as well as currently everyday smoker presents to ER with complaints of chronic cough for the past 6 months. Patient was seen by his primary care physician and was placed on antibiotics and Medrol Dosepak. Patient also thinks they are nighters coming out of his nose. No bowel movement gas was noted in the ER. Otherwise patient denied any complaints of fever or chills. Patient always has short of breath at baseline. Patient states that he has been having regular urination and is drinking 5 gallons of water daily. Patient was unable to come to the hospital because he was taking care of his mother and now his brother in the [facility] so he could come to the hospital. Patient continues to smoke otherwise. No complaints of chest pain. No headache or dizziness or lightheadedness. No numbness or weakness. No recent trauma. Denies any worsening leg swelling. Chest x-ray showed COPD with left basilar atelectasis or infiltrate and small p leural effusion or pleural thickening. Laboratory data showed WBC 12.1, hemoglobin 16.1 and platelets 354 Sodium 119 and potassium 5.6, chloride 81, bicarb is 11 and BUN 33 and creatinine 0.82 blood sugar was 724 Lactic acid 1.2 Acetone positive Troponin x1-. 06/06/2020 Patient is currently lying in the bed comfortably. States he feels better today. DKA has resolved. Anion gap closed. No complaints of chest pain or shortness breath. No fever no chills. Blood sugars still elevated in 300s. Patient was started Levemir and preprandial insulin and continue with sliding scale. Blood cultures have been negative. Current medications reviewed. Objective - Vital Signs Vital signs: Vital Signs Temp 97.7 F 06/06/20 16:00 Pulse 109 H 06/06/20 16:00 Resp 22 06/06/20 16:00 BP 134/91 06/06/20 16:00 Pulse Ox 96 06/06/20 11:50 Intake & Output 06/06/20 06/06/20 06/07/20 06:59 18:59 06:59 Intake Total 2373.294 671.998 320 Output Total 750 Balance 2373.294 -78.002 320 Weight 148 kg 148 kg Intake: Intake, IV Titration 2013.294 61.998 Amount D5-0.45% NaCl with KCl 1050 20Meq/l 1,000 ml @ 150 mls/hr IV .Q6H40M [facility] Rx# :[id number] Insulin Regular 100 unit 163.294 61.998 In Sodium Chloride 0.9% 100 ml @ 0.1 UNITS/KG/HR 18.325 mls/hr IV .Q5H31M [facility] Rx#:[id number] Sodium Chloride 0.9% 1, 800 000 ml @ 125 mls/hr IV . Q8H [facility] Rx#:[id number] Oral 360 610 320 Output: Urine 750 Other: Voiding Method Urinal # Voids 1 # Bowel Movements 1 - Exam PHYSICAL EXAMINATION: Patient is lying in the bed comfortably, no acute distress, awake alert and oriented.Morbidly obese. HEENT: Normocephalic. Neck is supple. Pupils reactive. Nostrils clear. Oral cavity is moist. Ears reveal no drainage. Neck reveals no JVD, carotid bruits, or thyromegaly. CHEST EXAMINATION: Trachea is central. Symmetrical expansion. Bibasilar diminished air entry. Lung warner clear to auscultation and percussion. CARDIAC: Normal S1, S2 with no gallops. No murmurs ABDOMEN: Soft. Bowel sounds normal. No organomegaly. No abdominal bruits. Extremities: reveal no edema. No clubbing or cyanosis Neurologically awake, alert, oriented x3 with well-coordinated movements. No focal deficits noted Skin: No rash or skin lesions. Psychiatric: Coperative. Nonsuicidal. anxious Musculoskeletal: No joint swelling or deformity. Normal range of motion. - Labs CBC & Chem 7: 06/07/20 07:42 06/07/20 07:42 Labs: Abnormal Lab Results - Last 24 Hours (Table) 06/05/20 06/05/20 06/06/20 Range/Units 22:17 23:59 01:54 Sodium (137-145) mmol/L Carbon Dioxide (22-30) mmol/L Creatinine (0.66-1.25) mg/dL Glucose (74-99) mg/dL POC Glucose (mg/dL) 231 H 273 H 247 H (75-99) mg/dL 06/06/20 06/06/20 06/06/20 Range/Units 04:04 06:16 08:02 Sodium (137-145) mmol/L Carbon Dioxide (22-30) mmol/L Creatinine (0.66-1.25) mg/dL Glucose (74-99) mg/dL POC Glucose (mg/dL) 223 H 205 H 173 H (75-99) mg/dL 06/06/20 06/06/20 06/06/20 Range/Units 10:02 10:57 11:03 Sodium 129 L (137-145) mmol/L Carbon Dioxide 21 L (22-30) mmol/L Creatinine 0.53 L (0.66-1.25) mg/dL Glucose 148 H (74-99) mg/dL POC Glucose (mg/dL) 141 H 142 H (75-99) mg/dL 06/06/20 06/06/20 06/06/20 Range/Units 11:54 13:03 14:02 Sodium (137-145) mmol/L Carbon Dioxide (22-30) mmol/L Creatinine (0.66-1.25) mg/dL Glucose (74-99) mg/dL POC Glucose (mg/dL) 249 H 345 H 408 H (75-99) mg/dL 06/06/20 06/06/20 06/06/20 Range/Units 14:45 16:01 16:58 Sodium (137-145) mmol/L Carbon Dioxide (22-30) mmol/L Creatinine (0.66-1.25) mg/dL Glucose (74-99) mg/dL POC Glucose (mg/dL) 366 H 327 H 288 H (75-99) mg/dL 06/06/20 Range/Units 20:43 Sodium (137-145) mmol/L Carbon Dioxide (22-30) mmol/L Creatinine (0.66-1.25) mg/dL Glucose (74-99) mg/dL POC Glucose (mg/dL) 327 H (75-99) mg/dL Assessment and Plan Assessment: Acute diabetic ketoacidosis. resolved New onset diabetes likely type II Possible left lower lobe pneumonia Pseudohyponatremia and hypovolemic hyponatremia. improved. Severe metabolic acidosis secondary to DKA. No lactic acidosis. Mild hyperkalemia likely due to acidosis Hypertension Fibromyalgia Chronic pain syndrome Chronic low back pain Hyperlipidemia Morbid obesity BMI 46.2 Ongoing nicotine addiction and marijuana use DVT prophylaxis with heparin subcu Plan: Patient was continued on insulin drip at .1 units/kg/h and continue to monitor electrolytes every 4 hours. Continue with IV hydration and replace electrolytes. DKA resolved now, started on SQ insuin Continue with antibiotics and breathing treatments as needed. Smoking cessation has been counseled extensively. Continue with pain management with Percocet. Further recommendations based on the clinical course. Time with Patient: Greater than 30
--- NOTE | 2020-06-07 23:14 | P.PN ---
Subjective Progress Note Date: 06/07/20 Principal diagnosis: Acute DKA Patient is a 50-year-old male with a known history of fibromyalgia, hypertension, gout, chronic low back pain and degenerative joint disease, hyperl ipidemia and anxiety and also marijuana use as well as currently everyday smoker presents to ER with complaints of chronic cough for the past 6 months. Patient was seen by his primary care physician and was placed on antibiotics and Medrol Dosepak. Patient also thinks they are nighters coming out of his nose. No bowel movement gas was noted in the ER. Otherwise patient denied any complaints of fever or chills. Patient always has short of breath at baseline. Patient states that he has been having regular urination and is drinking 5 gallons of water daily. Patient was unable to come to the hospital because he was taking care of his mother and now his brother in the assisted so he could come to the hospital. Patient continues to smoke otherwise. No complaints of chest pain. No headache or dizziness or lightheadedness. No numbness or weakness. No recent trauma. Denies any worsening leg swelling. Chest x-ray showed COPD with left basilar atelectasis or infiltrate and small p leural effusion or pleural thickening. Laboratory data showed WBC 12.1, hemoglobin 16.1 and platelets 354 Sodium 119 and potassium 5.6, chloride 81, bicarb is 11 and BUN 33 and creatinine 0.82 blood sugar was 724 Lactic acid 1.2 Acetone positive Troponin x1-. 06/06/2020 Patient is currently lying in the bed comfortably. States he feels better today. DKA has resolved. Anion gap closed. No complaints of chest pain or shortness breath. No fever no chills. Blood sugars still elevated in 300s. Patient was started Levemir and preprandial insulin and continue with sliding scale. Blood cultures have been negative. 06/07/2020 Patient is currently lying in the bed comfortably. No fever no chills. Blood sugar is elevated in 300s and also patient is hyponatremic. No cough or sputum production. Shortness of breath did improve. No leukocytosis. Patient states that he feels better. Diabetic education will be provided and patient will need insulin regimen upon discharge. Anticipate discharge the next 24 hours with better blood sugar control. Current medications reviewed. Objective - Vital Signs Vital signs: Vital Signs Temp 97.5 F L 06/07/20 20:19 Pulse 96 06/07/20 20:19 Resp 20 06/07/20 20:19 BP 131/80 06/07/20 20:19 Pulse Ox 98 06/07/20 20:19 Intake & Output 06/07/20 06/07/20 06/08/20 06:59 18:59 06:59 Intake Total 1280 1490 480 Output Total 400 400 Balance 880 1490 80 Weight 147.8 kg Intake: IV 50 cefTRIAXone 1 gm In 50 Sodium Chloride 0.9% 50 ml @ 100 mls/hr IVPB Q24HR [facility] Rx#:[id number] Oral 1280 1440 480 Output: Urine 400 400 Other: Voiding Method Urinal - Exam PHYSICAL EXAMINATION: Patient is lying in the bed comfortably, no acute distress, awake alert and oriented.Morbidly obese. HEENT: Normocephalic. Neck is supple. Pupils reactive. Nostrils clear. Oral cavity is moist. Ears reveal no drainage. Neck reveals no JVD, carotid bruits, or thyromegaly. CHEST EXAMINATION: Trachea is central. Symmetrical expansion. Bibasilar dimi nished air entry. Lung warner clear to auscultation and percussion. CARDIAC: Normal S1, S2 with no gallops. No murmurs ABDOMEN: Soft. Bowel sounds normal. No organomegaly. No abdominal bruits. Extremities: reveal no edema. No clubbing or cyanosis Neurologically awake, alert, oriented x3 with well-coordinated movements. No focal deficits noted Skin: No rash or skin lesions. Psychiatric: Coperative. Nonsuicidal. anxious Musculoskeletal: No joint swelling or deformity. Normal range of motion. - Labs CBC & Chem 7: 06/07/20 07:42 06/07/20 07:42 Labs: Abnormal Lab Results - Last 24 Hours (Table) 06/07/20 06/07/20 06/07/20 Range/Units 06:38 07:42 07:42 Sodium 126 L (137-145) mmol/L Carbon Dioxide 21 L (22-30) mmol/L Creatinine 0.51 L (0.66-1.25) mg/dL Glucose 300 H (74-99) mg/dL POC Glucose (mg/dL) 336 H (75-99) mg/dL Hemoglobin A1c 14.3 H (4.0-6.0) % Calcium 8.1 L (8.4-10.2) mg/dL 06/07/20 06/07/20 06/07/20 Range/Units 11:56 16:54 20:36 Sodium (137-145) mmol/L Carbon Dioxide (22-30) mmol/L Creatinine (0.66-1.25) mg/dL Glucose (74-99) mg/dL POC Glucose (mg/dL) 278 H 269 H 343 H (75-99) mg/dL Hemoglobin A1c (4.0-6.0) % Calcium (8.4-10.2) mg/dL Assessment and Plan Assessment: Acute diabetic ketoacidosis. resolved New onset diabetes likely type II Possible left lower lobe pneumonia Pseudohyponatremia and hypovolemic hyponatremia. improved. Severe metabolic acidosis secondary to DKA. No lactic acidosis. Mild hyperkalemia likely due to acidosis Hypertension Fibromyalgia Chronic pain syndrome Chronic low back pain Hyperlipidemia Morbid obesity BMI 46.2 Ongoing nicotine addiction and marijuana use DVT prophylaxis with heparin subcu Plan: Patient was continued on insulin drip at .1 units/kg/h and continue to monitor electrolytes every 4 hours. Continue with IV hydration and replace electrolytes. DKA resolved now, started on SQ insuin Continue with antibiotics and breathing treatments as needed. Smoking cessation has been counseled extensively. Continue with pain management with Percocet. Further recommendations based on the clinical course. Time with Patient: Greater than 30
[2020-06-08] MEDS: SODIUM CHLORIDE 0.9% 1,000 ML IV SCH (01:42)
[2020-06-08 02:08] LABS: Glucose,Whole Blood 273 mg/dL (75-99)
[2020-06-08] MEDS: HYDROcodone/APAP 7.5-325MG 1 EACH TAB PO PRN ×2 (02:23→12:33)
[2020-06-08 04:47] VITALS: TEMP 97.9
[2020-06-08 06:19] LABS: Glucose,Whole Blood 378 mg/dL (75-99)
[2020-06-08] MEDS: INSULIN ASPART (NovoLOG) 100 UNIT/ML VIAL SQ SCH ×4 (06:32→12:27)
[2020-06-08 07:48] LABS: Basophils # (A) 0.1 k/uL (0-0.2); Basophils % (A) 1 %; Eosinophils # (A) 0.1 k/uL (0-0.7); Eosinophils % (A) 2 %; HCT 42.4 % (39.0-53.0); HGB 14.3 gm/dL (13.0-17.5); Lymphocytes # (A) 1.7 k/uL (1.0-4.8); Lymphocytes % (A) 27 %; MCH 30.4 pg (25.0-35.0); MCHC 33.8 g/dL (31.0-37.0); Mean Platelet Volume 8.3; Monocytes # (A) 0.3 k/uL (0-1.0); Monocytes % (A) 4 %; Neutrophils # (A) 4.1 k/uL (1.3-7.7); Neutrophils % (A) 65 %; Platelet Count 268 k/uL (150-450); RBC 4.71 m/uL (4.30-5.90); RDW 14.6 % (11.5-15.5); WBC 6.3 k/uL (3.8-10.6)
[2020-06-08 08:09] LABS: African American GFR (CKD) >90 (>60 ml/min/1.73 sqM); Anion Gap 9 mmol/L; Blood Urea Nitrogen 10 mg/dL (9-20); Calcium 8.6 mg/dL (8.4-10.2); Carbon Dioxide 23 mmol/L (22-30); Chloride 100 mmol/L (98-107); Glucose 327 mg/dL (74-99); Non-African American GFR(CKD) >90 (>60 ml/min/1.73 sqM); Sodium 132 mmol/L (137-145)
[2020-06-08 08:12] LABS: Potassium 3.7 mmol/L (3.5-5.1)
[2020-06-08] MEDS: HEPARIN SODIUM,PORCINE 5,000 UNIT/ML 1 ML VIAL SQ SCH (08:29)
[2020-06-08] MEDS: DULoxetine HCL 60 MG CAPSULE.DR PO SCH (08:30)
[2020-06-08] MEDS: AZITHROMYCIN 500 MG TAB PO SCH (08:30)
[2020-06-08] MEDS: PREGABALIN 100 MG CAP PO SCH ×2 (08:30→15:47)
[2020-06-08] MEDS: oxyCODONE-APAP 10-325MG 1 EACH TAB PO SCH ×2 (08:30→15:47)
[2020-06-08 08:42] VITALS: RESP 16
[2020-06-08 11:59] LABS: Glucose,Whole Blood 280 mg/dL (75-99)
[2020-06-08] MEDS ORDERED: POTASSIUM CHLORIDE ER 20 MEQ TAB.ER PO STA (13:46)
[2020-06-08 15:49] VITALS: BP 121/64; PULSE 99
== END 2020-06-08 17:35 | disposition home health service (06) | DRG 637 ==
LOC: EC 10:51 → 3SCARD 12:58
PROVIDERS: ADMIT Hospitalist; ATTEND Hospitalist
DX: E11.10 Type 2 diabetes mellitus with ketoacidosis without coma (principal); J18.9 Pneumonia, unspecified organism; J44.0 Chronic obstructive pulmonary disease with (acute) lower respiratory infection; E87.1 Hypo-osmolality and hyponatremia; E66.01 Morbid (severe) obesity due to excess calories; I48.91 Unspecified atrial fibrillation; M79.7 Fibromyalgia; I10 Essential (primary) hypertension; E78.5 Hyperlipidemia, unspecified; G89.4 Chronic pain syndrome; F41.9 Anxiety disorder, unspecified; M51.36 Other intervertebral disc degeneration, lumbar region; F17.210 Nicotine dependence, cigarettes, uncomplicated; M19.90 Unspecified osteoarthritis, unspecified site; E86.1 Hypovolemia; E87.5 Hyperkalemia; M10.9 Gout, unspecified; Z71.3 Dietary counseling and surveillance; Z71.6 Tobacco abuse counseling; Z68.37 Body mass index [BMI] 37.0-37.9, adult; Z79.899 Other long term (current) drug therapy; Z79.1 Long term (current) use of non-steroidal anti-inflammatories (NSAID); Z79.891 Long term (current) use of opiate analgesic; Z87.01 Personal history of pneumonia (recurrent); Z98.1 Arthrodesis status; Z96.651 Presence of right artificial knee joint; Z96.641 Presence of right artificial hip joint; Z89.022 Acquired absence of left finger(s); Z89.021 Acquired absence of right finger(s); Z98.890 Other specified postprocedural states
CPT/HCPCS: 36415; 71046; 80048; 80051; 80053; 82009; 82565; 82947; 83036; 83605; 83735; 84100; 84484; 84520; 85025; 85610; 85730; 90732; 93005; 96361; 96374; 99291

== ENCOUNTER 2021-12-03 16:14 | Emergency (ER) | payer OTHER ==
[2021-12-03 16:23] VITALS: BP 156/94; PULSE 90; RESP 18; TEMP 97
--- NOTE | 2021-12-03 17:35 | XR ---
EXAMINATION TYPE: XR shoulder complete RT DATE OF EXAM: 12/03/2021 5:15 PM INDICATION: Patient age:Male; 51 years old; Reason for study: fall 1 week ago, pain; COMPARISON: chest radiograph 06/05/2020 TECHNIQUE: The right shoulder was examined in AP, internally rotated and axillary projections. FINDINGS: Surgical changes with anchors seen within the humerus. The distal clavicle demonstrates osteophyte. N o evidence of acute osseous pathology, joint dislocation, or soft tissue swelling. There is some pulm onary vascular congestion noted within the chest. IMPRESSION: 1. No acute osseous pathology. 2. Postsurgical changes to the right shoulder rotator cuff. 3. Airspace opacities which may represent pulmonary edema within the right chest partially visualize d correlate with patient's volume status.
[2021-12-03] MEDS ORDERED: HYDROmorphone 1 MG/ML 1 ML SYRINGE IM STA (18:15)
[2021-12-03] MEDS ORDERED: KETOROLAC 15 MG/ML 1 ML VIAL IM STA (18:15)
--- NOTE | 2021-12-03 18:15 | ED ---
Upper Extremity HPI - General Chief Complaint: Extremity Injury, Upper Stated Complaint: Fall/Rt Shoulder Injury Time Seen by Provider: 12/03/21 17:38 Source: patient Mode of arrival: ambulatory Limitations: no limitations - History of Present Illness Initial Comments: Javi is a 51-year-old male with a history of chronic pain, multiple joint injuries and surgeries in the past. Patient reports about 5 days ago he tripped over a rug, he grabbed a chair as he was falling and pulled his shoulder. Patient reports that he's had increasing pain in the shoulder since that time. He has historically followed in Dr. Freitas's office for chronic pain, he states that due to new doctors being hired his appointment got pushed back and he will be out of medications for 1 week at the beginning of December and will not be able to be seen until December 17. Patient states that he saw his primary care doctor Thad but they are not able to prescribe any narcotics. - Related Data Home Medications Medication Instructions Recorded Confirmed Albuterol Sulfate [Albuterol 2 puff PO RT-QID PRN 06/05/20 06/05/20 Sulfate Hfa] DULoxetine HCL [Cymbalta] 60 mg PO DAILY 06/05/20 06/05/20 Hydrocodone/Acetaminophen [[place] 1 tab PO BID 06/05/20 06/05/20 7.5-325] Ipratropium [place] [Atrovent Hfa] 2 puff INHALATION RT-QID 06/05/20 06/05/20 Pregabalin [Lyrica] 200 mg PO TID 06/05/20 06/05/20 oxyCODONE HCL/ACETAMINOPHEN 1 tab PO TID 06/05/20 06/05/20 [Percocet 10-325 mg] Previous Rx's Medication Instructions Recorded Cefuroxime Axetil [Ceftin] 500 mg PO BID 3 Days #6 tab 06/08/20 Diazepam [Valium] 10 mg PO HS PRN #0 06/08/20 Insulin Glargine,Hum.rec.anlog 48 unit SQ HS 30 Days #1 pen 06/08/20 [Basaglar Kwikpen U-100] Insulin Lispro [Admelog Solostar] 16 units SQ TID-W/MEALS 30 Days #1 06/08/20 pen Losartan [Cozaar] 50 mg PO DAILY #30 tab 06/08/20 Allergies Allergy/AdvReac Type Severity Reaction Status Date / Time No Known Allergies Allergy Verified 12/03/21 16:23 Review of Systems ROS Statement: Those systems with pertinent positive or pertinent negative responses have been documented in the HPI. ROS Other: All systems not noted in ROS Statement are negative. Past Medical History Past Medical History: Chest Pain / Angina, Fibromyalgia, Hyperlipidemia, Hypertension, Pneumonia, Respiratory Disorder Additional Past Medical History / Comment(s): Left lung pneumonia/empyema, gout, chronic fibromyalgia, chronic lower back pain, degenerative arthritis, history of degenerative disc disease involving the lumbar spine, hypertension, hyperlipidemia, atrial fibrillation as the patient went into atrial fibrillation during her hospitalization for a left lower lobe pneumonia back in October 2017 and subsequently he converted back to normal sinus. Echocardiogram done preoperatively showed a preserved LV function. He has chronic anxiety. 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 General Exam - General Exam Comments Initial Comments: Physical Exam GENERAL: Patient is well-developed and well-nourished. Patient is nontoxic and well-hydrated and is in no distress. HENT: Normocephalic, Atraumatic. EYES: PERRL, EOMI PULMONARY: Unlabored respirations. CARDIOVASCULAR: RRR Warm and well perfused extremities ABDOMEN: Non-distended SKIN: No rashes or bruising : Deferred NEUROLOGIC: Alert and oriented Normal speech Normal gait MUSCULOSKELETAL: Pain with ROM of right shoulder PSYCHIATRIC: No SI/HI Limitations: no limitations Course Vital Signs 12/03/21 16:17 Temperature 97.0 F L Pulse Rate 90 Respiratory 18 Rate Blood Pressure 156/94 O2 Sat by Pulse 97 Oximetry Medical Decision Making - Medical Decision Making Patient was seen and evaluated history is obtained from patient, patient requesting narcotics for pain management, patient follows with pain management and takes Percocet 10 3 times daily and [place] 10 2 at night, in addition patient is on Lyrica and Cymbalta for fibromyalgia. 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 Disposition Clinical Impression: Strain of shoulder Disposition: HOME SELF-CARE Condition: Stable Additional Instructions: Follow up with orthopedics for evaluation of shoulder injury Is patient prescribed a controlled substance at d/c from ED?: No Referrals: Tiffanie Cannon MD [Primary Care Provider] - 1-2 days
[2021-12-03] MEDS ORDERED: ACET/COD 300 MG/30 MG STARTER PACK 6 TAB BTL PO STA (18:16)
== END 2021-12-03 18:48 | disposition home or self-care (01) ==
LOC: EC 16:14
DX: S46.912A Strain of unspecified muscle, fascia and tendon at shoulder and upper arm level, left arm, initial encounter (principal); I10 Essential (primary) hypertension; F17.200 Nicotine dependence, unspecified, uncomplicated; W07.XXXA Fall from chair, initial encounter
CPT/HCPCS: 73030; 99284; 96372; J1170; J1885

== ENCOUNTER 2022-04-05 14:59 | Observation (INO) | payer OTHER ==
[2022-04-05 15:09] LABS: Glucose,Whole Blood >600 mg/dL (70-110)
[2022-04-05] MEDS ORDERED: SODIUM CHLORIDE 0.9% 2,000 ML IV ONE (15:44)
[2022-04-05] MEDS ORDERED: ONDANSETRON 4 MG/2 ML VIAL IVP STA (15:45)
--- NOTE | 2022-04-05 16:02 | ED ---
General Adult HPI - General Source: patient, RN notes reviewed Mode of arrival: ambulatory Limitations: no limitations <Abe Gomez - Last Filed: 04/05/22 16:01> <Ranjeet Dennis - Last Filed: 04/05/22 17:44> - General Chief complaint: Recheck/Abnormal Lab/Rx Stated complaint: Hyperglycemia Time Seen by Provider: 04/05/22 15:38 - History of Present Illness Initial comments: This a 52-year-old male presents emergency Department with chief complaint of hyperglycemia. Patient states that he saw his PCP 2 days ago in which she received a shot of steroids concerned that he was developing pneumonia. Patient states he is not on current oral steroids or antibiotics. Patient states that he's had prior lobectomy from recurrent pneumonia, abscess. Patient states that his blood sugar read high on his meter he states he is on multiple medications he does admit to nausea vomiting increased thirst, frequency of urination. Patient's had hot and cold flashes no chest pain he states his breathing has been slightly worse. (Abe Gomez) - Related Data Home Medications Medication Instructions Recorded Confirmed Albuterol Sulfate [Albuterol 2 puff INHALATION RT-TID 06/05/20 04/05/22 Sulfate Hfa] DULoxetine HCL [Cymbalta] 30 mg PO BID@0500,1900 06/05/20 04/05/22 Pregabalin [Lyrica] 200 mg PO TID@0500,1200,1900 06/05/20 04/05/22 oxyCODONE HCL/ACETAMINOPHEN 1 tab PO TID@0500,1200,1900 06/05/20 04/05/22 [Percocet 10-325 mg] Fluticasone/Umeclidin/[place] 1 puff INHALATION RT-HS@189904/05/22 04/05/22 [Trelegy Ellipta 100-62.5-25] HYDROcodone/APAP 10-325MG [[place] 1 tab PO BID@0500,1200 04/05/22 04/05/22 10-325] Losartan Potassium 100 mg PO DAILY@0500 04/05/22 04/05/22 Milnacipran HCl [Savella] 50 mg PO BID@0500,1900 04/05/22 04/05/22 Naloxone HCl [Narcan] 4 mg NASAL ONCE PRN 04/05/22 04/05/22 Naproxen [Naprosyn] 500 mg PO BID@0500,1900 04/05/22 04/05/22 Pramipexole [Mirapex] 0.5 mg PO HS@1900 04/05/22 04/05/22 amLODIPine [Norvasc] 5 mg PO DAILY@0500 04/05/22 04/05/22 tiZANidine [Zanaflex] 4 mg PO TID@0500,1200,1900 04/05/22 04/05/22 Allergies Allergy/AdvReac Type Severity Reaction Status Date / Time No Known Allergies Allergy Verified 04/05/22 16:33 Review of Systems ROS Other: All systems not noted in ROS Statement are negative. <Abe Gomez - Last Filed: 04/05/22 16:01> ROS Other: All systems not noted in ROS Statement are negative. <Ranjeet Dennis - Last Filed: 04/05/22 17:44> ROS Statement: Those systems with pertinent positive or pertinent negative responses have been documented in the HPI. Past Medical History Past Medical History: Chest Pain / Angina, Fibromyalgia, Hyperlipidemia, Hypertension, Pneumonia, Respiratory Disorder Additional Past Medical History / Comment(s): Left lung pneumonia/empyema, gout, chronic fibromyalgia, chronic lower back pain, degenerative arthritis, history of degenerative disc disease involving the lumbar spine, hypertension, hyperlipidemia, atrial fibrillation as the patient went into atrial fibrillation during her hospitalization for a left lower lobe pneumonia back in October 2017 and subsequently he converted back to normal sinus. Echocardiogram done preoperatively showed a preserved LV function. He has chronic anxiety. 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 <Abe Gomez Darius - Last Filed: 04/05/22 16:01> General Exam Limitations: no limitations General appearance: alert, in no apparent distress, obese Head exam: Present: atraumatic, normocephalic, normal inspection Neck exam: Present: normal inspection. Absent: tenderness, meningismus, lymphadenopathy Respiratory exam: Present: decreased breath sounds. Absent: normal lung sounds bilaterally, respiratory distress, wheezes, rales, rhonchi, stridor Cardiovascular Exam: Present: normal rhythm, tachycardia, normal heart sounds. Absent: systolic murmur, diastolic murmur, rubs, gallop, clicks GI/Abdominal exam: Present: soft, normal bowel sounds. Absent: distended, tenderness, guarding, rebound, rigid Back exam: Absent: CVA tenderness (R), CVA tenderness (L) Neurological exam: Present: alert, oriented X3 <Abe Gomez - Last Filed: 04/05/22 16:01> Course <Ranjeet Dennis - Last Filed: 04/05/22 17:44> Vital Signs 04/05/22 04/05/22 04/05/22 15:02 16:14 17:21 Temperature 98.1 F Pulse Rate 107 H 80 95 Respiratory 18 18 20 Rate Blood Pressure 135/76 135/101 140/92 O2 Sat by Pulse 95 95 96 Oximetry - Reevaluation(s) Reevaluation #1: 04/05/22 17:30 Case, H&P, test results thus far and ED management thus far were discussed with Dr. Day She accepts hospital admission. She has no further recommendations at this time. 04/05/22 17:39 Patient was endorsed to me by ED DAVID Gomez (secondary to shift change) with many of the patient's labs still pending. Patient's labs demonstrate findings of hyperosmolar nonketotic hyperglycemia. Patient corrected sodium is in the normal range. Patient has been treated with IV fluids and started on an IV insulin drip in the ED. Dr. Day has accepted hospital admission. Patient has been fairly hemodynamically stable while in the ED. Patient denies development of any new symptoms while in the ED. Patient is aware of his test results, and he agrees with hospital admission at this time. (Ranjeet Dennis) Medical Decision Making - Lab Data Result diagrams: 04/05/22 16:01 04/05/22 16:01 <Ranjeet Dennis - Last Filed: 04/05/22 17:44> - Lab Data Lab Results 04/05/22 04/05/22 04/05/22 Range/Units 15:07 15:30 16:01 WBC 10.9 H (3.8-10.6) k/uL RBC 5.33 (4.30-5.90) m/uL Hgb 17.2 (13.0-17.5) gm/dL Hct 53.2 H (39.0-53.0) % MCV 99.7 (80.0-100.0) fL MCH 32.2 (25.0-35.0) pg MCHC 32.3 (31.0-37.0) g/dL RDW 13.7 (11.5-15.5) % Plt Count 276 (150-450) k/uL MPV 10.0 Neutrophils % 71 % Lymphocytes % 22 % Monocytes % 5 % Eosinophils % 1 % Basophils % 1 % Neutrophils # 7.7 (1.3-7.7) k/uL Lymphocytes # 2.4 (1.0-4.8) k/uL Monocytes # 0.5 (0-1.0) k/uL Eosinophils # 0.1 (0-0.7) k/uL Basophils # 0.1 (0-0.2) k/uL VBG pH (7.31-7.41) VBG pCO2 (37-51) mmHg VBG HCO3 (24-28) mmol/L Sodium (137-145) mmol/L Potassium (3.5-5.1) mmol/L Chloride (98-107) mmol/L Carbon Dioxide (22-30) mmol/L Anion Gap mmol/L BUN (9-20) mg/dL Creatinine (0.66-1.25) mg/dL Est GFR (CKD-EPI)AfAm (>60 ml/min/1.73 sqM) Est GFR (CKD-EPI)NonAf (>60 ml/min/1.73 sqM) Glucose (74-99) mg/dL POC Glucose (mg/dL) >600 H (70-110) mg/dL POC Glu 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 Operator [place] Plasma Lactic Acid Jase (0.7-2.0) mmol/L Calcium (8.4-10.2) mg/dL Total Bilirubin (0.2-1.3) mg/dL AST (17-59) U/L ALT (4-49) U/L Alkaline Phosphatase (38-126) U/L Total Protein (6.3-8.2) g/dL Albumin (3.5-5.0) g/dL Lipase (23-300) U/L Urine Color Colorless Urine Appearance Clear (Clear) Urine pH 5.5 (5.0-8.0) Ur Specific [place] 1.028 (1.001-1.035) Urine Protein Negative (Negative) Urine Glucose (UA) 4+ H (Negative) Urine Ketones Negative (Negative) Urine Blood Negative (Negative) Urine Nitrite Negative (Negative) Urine Bilirubin Negative (Negative) Urine Urobilinogen <2.0 (<2.0) mg/dL Ur Leukocyte Esterase Negative (Negative) Acetone, Qual (Negative) 04/05/22 04/05/22 04/05/22 Range/Units 16:01 16:01 16:01 WBC (3.8-10.6) k/uL RBC (4.30-5.90) m/uL Hgb (13.0-17.5) gm/dL Hct (39.0-53.0) % MCV (80.0-100.0) fL MCH (25.0-35.0) pg MCHC (31.0-37.0) g/dL RDW (11.5-15.5) % Plt Count (150-450) k/uL MPV Neutrophils % % Lymphocytes % % Monocytes % % Eosinophils % % Basophils % % Neutrophils # (1.3-7.7) k/uL Lymphocytes # (1.0-4.8) k/uL Monocytes # (0-1.0) k/uL Eosinophils # (0-0.7) k/uL Basophils # (0-0.2) k/uL VBG pH 7.52 H (7.31-7.41) VBG pCO2 26 L (37-51) mmHg VBG HCO3 21 L (24-28) mmol/L Sodium 115 L* (137-145) mmol/L Potassium 5.9 H (3.5-5.1) mmol/L Chloride 76 L (98-107) mmol/L Carbon Dioxide 20 L (22-30) mmol/L Anion Gap 19 mmol/L BUN 23 H (9-20) mg/dL Creatinine 1.22 (0.66-1.25) mg/dL Est GFR (CKD-EPI)AfAm 79 (>60 ml/min/1.73 sqM) Est GFR (CKD-EPI)NonAf 68 (>60 ml/min/1.73 sqM) Glucose 1128 H* (74-99) mg/dL POC Glucose (mg/dL) (70-110) mg/dL POC Glu 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 Operator [place] Plasma Lactic Acid Jase 5.3 H* (0.7-2.0) mmol/L Calcium 11.4 H (8.4-10.2) mg/dL Total Bilirubin 1.0 (0.2-1.3) mg/dL AST 51 (17-59) U/L ALT 51 H (4-49) U/L Alkaline Phosphatase 208 H (38-126) U/L Total Protein 7.6 (6.3-8.2) g/dL Albumin 4.7 (3.5-5.0) g/dL Lipase 197 (23-300) U/L Urine Color Urine Appearance (Clear) Urine pH (5.0-8.0) Ur Specific [place] (1.001-1.035) Urine Protein (Negative) Urine Glucose (UA) (Negative) Urine Ketones (Negative) Urine Blood (Negative) Urine Nitrite (Negative) Urine Bilirubin (Negative) Urine Urobilinogen (<2.0) mg/dL Ur Leukocyte Esterase (Negative) Acetone, Qual Negative (Negative) 04/05/22 Range/Units 17:30 WBC (3.8-10.6) k/uL RBC (4.30-5.90) m/uL Hgb (13.0-17.5) gm/dL Hct (39.0-53.0) % MCV (80.0-100.0) fL MCH (25.0-35.0) pg MCHC (31.0-37.0) g/dL RDW (11.5-15.5) % Plt Count (150-450) k/uL MPV Neutrophils % % Lymphocytes % % Monocytes % % Eosinophils % % Basophils % % Neutrophils # (1.3-7.7) k/uL Lymphocytes # (1.0-4.8) k/uL Monocytes # (0-1.0) k/uL Eosinophils # (0-0.7) k/uL Basophils # (0-0.2) k/uL VBG pH (7.31-7.41) VBG pCO2 (37-51) mmHg VBG HCO3 (24-28) mmol/L Sodium (137-145) mmol/L Potassium (3.5-5.1) mmol/L Chloride (98-107) mmol/L Carbon Dioxide (22-30) mmol/L Anion Gap mmol/L BUN (9-20) mg/dL Creatinine (0.66-1.25) mg/dL Est GFR (CKD-EPI)AfAm (>60 ml/min/1.73 sqM) Est GFR (CKD-EPI)NonAf (>60 ml/min/1.73 sqM) Glucose (74-99) mg/dL POC Glucose (mg/dL) >600 H (70-110) mg/dL POC Glu 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 Operator Nancie Hu Plasma Lactic Acid Jase (0.7-2.0) mmol/L Calcium (8.4-10.2) mg/dL Total Bilirubin (0.2-1.3) mg/dL AST (17-59) U/L ALT (4-49) U/L Alkaline Phosphatase (38-126) U/L Total Protein (6.3-8.2) g/dL Albumin (3.5-5.0) g/dL Lipase (23-300) U/L Urine Color Urine Appearance (Clear) Urine pH (5.0-8.0) Ur Specific [place] (1.001-1.035) Urine Protein (Negative) Urine Glucose (UA) (Negative) Urine Ketones (Negative) Urine Blood (Negative) Urine Nitrite (Negative) Urine Bilirubin (Negative) Urine Urobilinogen (<2.0) mg/dL Ur Leukocyte Esterase (Negative) Acetone, Qual (Negative) - Radiology Data Chest x-ray: No acute cardiopulmonary disease/process. No significant change from prior examination and 06/05/2020. COPD changes with left basilar atelectas is and/or scarring. (Ranjeet Dennis) Critical Care Time Critical Care Time: Yes Total Critical Care Time: 30 <Ranjeet Dennis - Last Filed: 04/05/22 17:44> Disposition <Abe Gomez - Last Filed: 04/05/22 16:01> Is patient prescribed a controlled substance at d/c from ED?: No Time of Disposition: 17:30 <Ranjeet Dennis - Last Filed: 04/05/22 17:44> Clinical Impression: Hyperglycemia, Pseudohyponatremia, Hyperkalemia, Diabetic hyperosmolar non- ketotic state Disposition: ADMITTED IP TO THIS [facility] Condition: Stable Referrals: Patric Granda DO [Primary Care Provider] - 1-2 days
[2022-04-05 16:05] LABS: Appearance,Urine Clear (Clear); Bilirubin,Urine Negative (Negative); Blood,Urine Negative (Negative); Color,Urine Colorless; Glucose,Urine (UA) 4+ (Negative); Ketones,Urine Negative (Negative); Leukocyte Esterase,Urine Negative (Negative); Nitrite,Urine Negative (Negative); PH, Urine 5.5 (5.0-8.0); Protein,Urine Negative (Negative); Specific Gravity,Urine 1.028 (1.001-1.035); Urobilinogen,Urine <2.0 mg/dL (<2.0)
[2022-04-05 16:13] LABS: VBG PH 7.52 (7.31-7.41)
[2022-04-05 16:39] LABS: AST 51 U/L (17-59); African American GFR (CKD) 79 (>60 ml/min/1.73 sqM); Albumin 4.7 g/dL (3.5-5.0); Alkaline Phosphatase 208 U/L (38-126); Anion Gap 19 mmol/L; Blood Urea Nitrogen 23 mg/dL (9-20); Calcium 11.4 mg/dL (8.4-10.2); Carbon Dioxide 20 mmol/L (22-30); Chloride 76 mmol/L (98-107); Lipase 197 U/L (23-300); Non-African American GFR(CKD) 68 (>60 ml/min/1.73 sqM); Potassium 5.9 mmol/L (3.5-5.1); Total Protein 7.6 g/dL (6.3-8.2)
--- NOTE | 2022-04-05 16:43 | XR ---
EXAMINATION TYPE: XR chest 2V DATE OF EXAM: 04/05/2022 4:29 PM COMPARISON: Chest radiographs from 06/05/2020. TECHNIQUE: XR chest 2V Frontal and lateral views of the chest. CLINICAL INDICATION:Male, 52 years old with history of sob; FINDINGS: Lungs/Pleura: Redemonstration of diffuse emphysematous changes and pleural thickening and asymmetric right pleural thickening. Left basilar atelectasis and/or scarring. No pleural effusion. No significa nt change of prior examination. No sizable pneumothorax. Pulmonary vascularity: Unremarkable. Heart/mediastinum: Cardiomediastinal silhouette is stable. Musculoskeletal: No acute osseous pathology. IMPRESSION: * No acute cardiopulmonary disease/process. No significant change from prior examination on 0. * COPD changes with left basilar atelectasis and/or scarring.
[2022-04-05 16:44] LABS: ALT 51 U/L (4-49)
[2022-04-05] MEDS ORDERED: INSULIN REGULAR 100 UNIT/ML VIAL (IV) IV ONE (16:50)
[2022-04-05 16:55] LABS: Basophils # (A) 0.1 k/uL (0-0.2); Basophils % (A) 1 %; Eosinophils # (A) 0.1 k/uL (0-0.7); Eosinophils % (A) 1 %; HCT 53.2 % (39.0-53.0); HGB 17.2 gm/dL (13.0-17.5); Lymphocytes # (A) 2.4 k/uL (1.0-4.8); Lymphocytes % (A) 22 %; MCH 32.2 pg (25.0-35.0); MCHC 32.3 g/dL (31.0-37.0); MCV 99.7 fL (80.0-100.0); Monocytes # (A) 0.5 k/uL (0-1.0); Monocytes % (A) 5 %; Neutrophils # (A) 7.7 k/uL (1.3-7.7); Neutrophils % (A) 71 %; Platelet Count 276 k/uL (150-450); RBC 5.33 m/uL (4.30-5.90); RDW 13.7 % (11.5-15.5); WBC 10.9 k/uL (3.8-10.6)
[2022-04-05 17:13] LABS: Glucose 1128 mg/dL (74-99); Sodium 115 mmol/L (137-145)
[2022-04-05] MEDS ORDERED: MAG HYDROX/AL HYDROX/SIMETH 30 ML CUP PO STA (17:20)
[2022-04-05 17:35] LABS: Glucose,Whole Blood >600 mg/dL (70-110)
[2022-04-05] MEDS: INSULIN REGULAR 100 UNIT in SODIUM CHLORIDE 0.9% 100 ML IV SCH ×2 (18:01→23:07)
[2022-04-05] MEDS: SODIUM CHLORIDE 0.9% 1,000 ML IV SCH ×2 (18:02→21:34)
[2022-04-05] MEDS ORDERED: oxyCODONE-APAP 10-325MG 1 EACH TAB PO STA (18:37)
[2022-04-05] MEDS ORDERED: HYDROcodone/APAP 10-325MG 1 EACH TAB PO ONE (18:38)
[2022-04-05 18:39] LABS: Glucose,Whole Blood >600 mg/dL (70-110)
[2022-04-05 19:12] LABS: Glucose,Whole Blood 582 mg/dL (70-110)
[2022-04-05] MEDS: ALBUTEROL NEBULIZED 2.5 MG/3 ML INHALATION SCH (19:12)
[2022-04-05] MEDS: DULoxetine HCL 30 MG CAPSULE.DR PO SCH (20:20)
[2022-04-05] MEDS: PRAMIPEXOLE 0.5 MG TAB PO SCH (20:20)
[2022-04-05] MEDS: tiZANidine 4 MG TAB PO SCH (20:20)
[2022-04-05] MEDS: PREGABALIN 100 MG CAP PO SCH (20:20)
[2022-04-05 20:21] LABS: African American GFR (CKD) >90 (>60 ml/min/1.73 sqM); Anion Gap 14 mmol/L; Blood Urea Nitrogen 19 mg/dL (9-20); Carbon Dioxide 20 mmol/L (22-30); Chloride 89 mmol/L (98-107); Glucose 490 mg/dL (74-99); Non-African American GFR(CKD) >90 (>60 ml/min/1.73 sqM); Sodium 123 mmol/L (137-145)
[2022-04-05] MEDS: Milnacipran Hcl [Savella] PO SCH (20:22)
[2022-04-05 20:26] LABS: Glucose,Whole Blood 407 mg/dL (70-110)
--- NOTE | 2022-04-05 20:51 | P.HPIM ---
History of Present Illness H&P Date: 04/05/22 Chief Complaint: Elevated blood sugars 52-year-old male presents emergency Department with chief complaint of hyperglycemia. Patient states that he saw his PCP 2 days ago in which she received a shot of steroids concerned that he was developing pneumonia. Patient states he is not on current oral steroids or antibiotics. Patient states that he's had prior lobectomy from recurrent pneumonia, abscess. Patient states that his blood sugar read high on his meter he states he is on multiple medications he does admit to nausea vomiting increased thirst, frequency of urination. Patient's had hot and cold flashes no chest pain he states his breathing has been slightly worse. Patient's labs demonstrate findings of hyperosmolar nonketotic hyperglycemia. Patient corrected sodium is in the normal range. Patient has been treated with IV fluids and started on an IV insulin drip in the ED. Blood work in ED reveals a WBC of 10.9, hemoglobin 17.2, hematocrit 53.1. White count of 276, sodium 115, potassium 5.9, BUN/creatinine of 23/1.2 to and CO2 of 20 with blood glucose of 1128; venous blood gases reveal a pH of 7.5, pCO2 of 26 and bicarb of 21; lactic acid of 5.3 Review of Systems REVIEW OF SYSTEMS: CONSTITUTIONAL: No fever, no malaise, no fatigue. HEENT: No recent visual problems or hearing problems. Denied any sore throat. CARDIOVASCULAR: No chest pain, orthopnea, PND, no palpitations, no syncope. PULMONARY: No shortness of breath, no cough, no hemoptysis. GASTROINTESTINAL: No diarrhea, no nausea, no vomiting, no abdominal pain. NEUROLOGICAL: No headaches, no weakness, no numbness. HEMATOLOGICAL: Denies any bleeding or petechiae. GENITOURINARY: Denies any burning micturition, frequency, or urgency. MUSCULOSKELETAL/RHEUMATOLOGICAL: Denies any joint pain, swelling, or any muscle pain. ENDOCRINE: Denies any polyuria or polydipsia. The rest of the 14-point review of systems is negative. Past Medical History Past Medical History: Chest Pain / Angina, Fibromyalgia, Hyperlipidemia, Hypertension, Pneumonia, Respiratory Disorder Additional Past Medical History / Comment(s): Left lung pneumonia/empyema, gout, chronic fibromyalgia, chronic lower back pain, degenerative arthritis, history of degenerative disc disease involving the lumbar spine, hypertension, hyperlipidemia, atrial fibrillation as the patient went into atrial fibrillation during her hospitalization for a left lower lobe pneumonia back in October 2017 and subsequently he converted back to normal sinus. Echocardiogram done preoperatively showed a preserved LV function. He has chronic anxiety. History of Any Multi-Drug Resistant Organisms: None Reported Past Surgical History: Back Surgery, Joint Replacement, Orthopedic Surgery Additional Past Surgical History / Comment(s): rt hip replacement, rt knee replacement, left knee surgery with metal, neck fusion, lower back surgery, traumatic amputation rt index finger, left index finger tip amputation from injury Past Anesthesia/Blood Transfusion Reactions: Blood Transfusion Reaction Additional Past Anesthesia/Blood Transfusion Reaction / Comment(s): pt states some limited neck movement due to previous surgery, " I got degenerative bone disease from a blood transfusion", "I woke up in the middle of knee surgery" Past Psychological History: No Psychological Hx Reported Smoking Status: Current every day smoker Past Alcohol Use History: None Reported Past Drug Use History: Marijuana - Past Family History Mother Family Medical History: No Reported History Additional Family Medical History / Comment(s): enlarged heart Father Family Medical History: No Reported History Additional Family Medical History / Comment(s): Father lived to be 101 yrs old. Medications and Allergies Home Medications Medication Instructions Recorded Confirmed Type Albuterol Sulfate [Albuterol 2 puff INHALATION RT-TID 06/05/20 04/05/22 History Sulfate Hfa] DULoxetine HCL [Cymbalta] 30 mg PO BID@0500,1900 06/05/20 04/05/22 History Pregabalin [Lyrica] 200 mg PO TID@0500,1200,1900 06/05/20 04/05/22 History oxyCODONE HCL/ACETAMINOPHEN 1 tab PO TID@0500,1200,1900 06/05/20 04/05/22 His tory [Percocet 10-325 mg] Fluticasone/Umeclidin/Vilanter 1 puff INHALATION RT-HS@189904/05/22 04/05/22 History [Trelegy Ellipta 100-62.5-25] HYDROcodone/APAP 10-325MG [Atkins 1 tab PO BID@0500,1200 04/05/22 04/05/22 History 10-325] Losartan Potassium 100 mg PO DAILY@0500 04/05/22 04/05/22 History Milnacipran HCl [Savella] 50 mg PO BID@0500,1900 04/05/22 04/05/22 History Naloxone HCl [Narcan] 4 mg NASAL ONCE PRN 04/05/22 04/05/22 History Naproxen [Naprosyn] 500 mg PO BID@0500,1900 04/05/22 04/05/22 History Pramipexole [Mirapex] 0.5 mg PO HS@1900 04/05/22 04/05/22 History amLODIPine [Norvasc] 5 mg PO DAILY@0500 04/05/22 04/05/22 History tiZANidine [Zanaflex] 4 mg PO TID@0500,1200,1900 04/05/22 04/05/22 History Allergies Allergy/AdvReac Type Severity Reaction Status Date / Time No Known Allergies Allergy Verified 04/05/22 16:33 Physical Exam Vitals: Vital Signs Temp Pulse Resp BP Pulse Ox 04/05/22 17:21 95 20 140/92 96 04/05/22 16:14 80 18 135/101 95 04/05/22 15:02 98.1 F 107 H 18 135/76 95 Intake and Output 04/05/22 04/05/22 04/05/22 06:59 14:59 22:59 Other: Weight 179.623 kg General appearance: alert, in no apparent distress, obese Head exam: Present: atraumatic, normocephalic, normal inspection Neck exam: Present: normal inspection. Absent: tenderness, meningismus, lymphadenopathy Respiratory exam: Present: decreased breath sounds. Absent: normal lung sounds bilaterally, respiratory distress, wheezes, rales, rhonchi, stridor Cardiovascular Exam: Present: normal rhythm, tachycardia, normal heart sounds. Absent: systolic murmur, diastolic murmur, rubs, gallop, clicks GI/Abdominal exam: Present: soft, normal bowel sounds. Absent: distended, tenderness, guarding, rebound, rigid Back exam: Absent: CVA tenderness (R), CVA tenderness (L) Neurological exam: Present: alert, oriented X3 Results CBC & Chem 7: 04/05/22 16:01 04/05/22 19:48 Labs: Abnormal Lab Results - Last 24 Hours (Table) 04/05/22 04/05/2204/05/22 Range/Units 15:07 15:30 16:01 WBC 10.9 H (3.8-10.6) k/uL Hct 53.2 H (39.0-53.0) % VBG pH (7.31-7.41) VBG pCO2 (37-51) mmHg VBG HCO3 (24-28) mmol/L Sodium (137-145) mmol/L Potassium (3.5-5.1) mmol/L Chloride (98-107) mmol/L Carbon Dioxide (22-30) mmol/L BUN (9-20) mg/dL Glucose (74-99) mg/dL POC Glucose (mg/dL) >600 H (70-110) mg/dL Plasma Lactic Acid Jase (0.7-2.0) mmol/L Calcium (8.4-10.2) mg/dL ALT (4-49) U/L Alkaline Phosphatase (38-126) U/L Urine Glucose (UA) 4+ H (Negative) 04/05/22 04/05/22 04/05/22 Range/Units 16:01 16:01 16:01 WBC (3.8-10.6) k/uL Hct (39.0-53.0) % VBG pH 7.52 H (7.31-7.41) VBG pCO2 26 L (37-51) mmHg VBG HCO3 21 L (24-28) mmol/L Sodium 115 L* (137-145) mmol/L Potassium 5.9 H (3.5-5.1) mmol/L Chloride 76 L (98-107) mmol/L Carbon Dioxide 20 L (22-30) mmol/L BUN 23 H (9-20) mg/dL Glucose 1128 H* (74-99) mg/dL POC Glucose (mg/dL) (70-110) mg/dL Plasma Lactic Acid Jase 5.3 H* (0.7-2.0) mmol/L Calcium 11.4 H (8.4-10.2) mg/dL ALT 51 H (4-49) U/L Alkaline Phosphatase 208 H (38-126) U/L Urine Glucose (UA) (Negative) 04/05/22 04/05/22 Range/Units 17:30 18:37 WBC (3.8-10.6) k/uL Hct (39.0-53.0) % VBG pH (7.31-7.41) VBG pCO2 (37-51) mmHg VBG HCO3 (24-28) mmol/L Sodium (137-145) mmol/L Potassium (3.5-5.1) mmol/L Chloride (98-107) mmol/L Carbon Dioxide (22-30) mmol/L BUN (9-20) mg/dL Glucose (74-99) mg/dL POC Glucose (mg/dL) >600 H >600 H (70-110) mg/dL Plasma Lactic Acid Jase (0.7-2.0) mmol/L Calcium (8.4-10.2) mg/dL ALT (4-49) U/L Alkaline Phosphatase (38-126) U/L Urine Glucose (UA) (Negative) Assessment and Plan Assessment: 1. Hyperglycemia/ diabetic hyperosmolar nonketotic state - Patient has been placed on IV insulin infusion per protocol; monitor blood glucose accordingly and make changes to insulin infusion - IV fluids in form of normal saline at a rate of 1 25 mL an hour; we will switch to dextrose containing IV fluids once blood glucose is lower 2. Marked hyponatremia; pseudohyponatremia and given severe elevation in blood glucose levels; corrected sodium level in 120s; patient has been placed on IV fluids in form of normal saline; we will monitor basic metabolic panel every 4 hours and make adjustments accordingly 3. Hyperkalemia; consistent with hyperosmolar nonketotic state; we will continue with IV insulin infusion as indicated above and IV fluids; monitor electrolytes closely and make further recommendations 4. Hypercalcemia; likely related to dehydration caused by hyperosmolar nonketotic state; continue with IV fluid hydration and monitor electrolytes closely 5. COPD; not in exacerbation; continue with home inhaler therapy 6. Acute on chronic kidney disease stage 4; IV fluid hydration as indicated above; we will monitor strict ROXANNA's, daily weights, renal function and electrolytes; avoid nephrotoxins; we will hold losartan till renal function is back to baseline 7. Hypertension; amlodipine 5 mg daily; hold losartan till blood pressure improves; we will add IV hydralazine to be used when necessary 8. Chronic back pain; continue with Cymbalta, Lyrica and home dose of Atkins DVT prophylaxis; SCDs/subcu heparin CODE STATUS; full code
[2022-04-05 21:30] LABS: Glucose,Whole Blood 326 mg/dL (70-110)
[2022-04-05 21:54] LABS: Glucose,Whole Blood 189 mg/dL (70-110)
[2022-04-05] MEDS: D5-0.45% NACL WITH KCL 20MEQ/L 1,000 ML IV SCH (22:18)
[2022-04-05 23:01] LABS: Glucose,Whole Blood 196 mg/dL (70-110)
[2022-04-06 00:03] LABS: Glucose,Whole Blood 253 mg/dL (70-110)
[2022-04-06 00:51] LABS: African American GFR (CKD) >90 (>60 ml/min/1.73 sqM); Anion Gap 9 mmol/L; Blood Urea Nitrogen 20 mg/dL (9-20); Carbon Dioxide 29 mmol/L (22-30); Chloride 92 mmol/L (98-107); Glucose 250 mg/dL (74-99); Non-African American GFR(CKD) 78 (>60 ml/min/1.73 sqM); Potassium 3.8 mmol/L (3.5-5.1); Sodium 130 mmol/L (137-145)
[2022-04-06 01:06] LABS: Glucose,Whole Blood 253 mg/dL (70-110)
[2022-04-06 02:05] LABS: Glucose,Whole Blood 247 mg/dL (70-110)
[2022-04-06 03:19] LABS: Glucose,Whole Blood 238 mg/dL (70-110)
[2022-04-06 04:09] LABS: Glucose,Whole Blood 244 mg/dL (70-110)
[2022-04-06] MEDS: PREGABALIN 100 MG CAP PO SCH ×3 (04:13→20:37)
[2022-04-06] MEDS: INSULIN REGULAR 100 UNIT in SODIUM CHLORIDE 0.9% 100 ML IV SCH ×2 (04:14→10:57)
[2022-04-06] MEDS: amLODIPine 5 MG TAB PO SCH (04:14)
[2022-04-06] MEDS: DULoxetine HCL 30 MG CAPSULE.DR PO SCH ×2 (04:14→20:34)
[2022-04-06] MEDS: NAPROXEN 250 MG TAB PO SCH ×2 (04:15→20:35)
[2022-04-06] MEDS: Milnacipran Hcl [Savella] PO SCH ×2 (04:21→20:28)
[2022-04-06] MEDS: LOSARTAN 50 MG TAB PO SCH (04:21)
[2022-04-06] MEDS: tiZANidine 4 MG TAB PO SCH ×3 (04:22→20:34)
[2022-04-06] MEDS: D5-0.45% NACL WITH KCL 20MEQ/L 1,000 ML IV SCH ×2 (04:22→13:13)
[2022-04-06] MEDS ORDERED: HYDROcodone/APAP 10-325MG 1 EACH TAB PO SCH (05:00)
[2022-04-06 05:06] LABS: Glucose,Whole Blood 210 mg/dL (70-110)
[2022-04-06 06:02] LABS: Glucose,Whole Blood 172 mg/dL (70-110)
[2022-04-06] MEDS: oxyCODONE-APAP 10-325MG 1 EACH TAB PO PRN ×3 (06:39→20:36)
[2022-04-06 06:58] LABS: Glucose,Whole Blood 132 mg/dL (70-110)
[2022-04-06 08:03] LABS: Glucose,Whole Blood 188 mg/dL (70-110)
[2022-04-06] MEDS: ALBUTEROL NEBULIZED 2.5 MG/3 ML INHALATION SCH ×3 (08:50→21:28)
[2022-04-06] MEDS: IPRATROPIUM 0.5 MG/2.5 ML NEBU INHALATION SCH ×4 (08:50→21:31)
[2022-04-06] MEDS: SYMBICORT 80-4.5 MCG INHALER INHALATION SCH ×2 (08:50→21:28)
[2022-04-06] MEDS ORDERED: oxyCODONE-APAP 10-325MG 1 EACH TAB PO SCH (09:00)
[2022-04-06 09:20] LABS: Glucose,Whole Blood 227 mg/dL (70-110)
[2022-04-06 10:05] LABS: Glucose,Whole Blood 272 mg/dL (70-110)
[2022-04-06 10:59] LABS: Glucose,Whole Blood 245 mg/dL (70-110)
[2022-04-06] MEDS: HYDROcodone/APAP 10-325MG 1 EACH TAB PO SCH ×2 (11:14→20:36)
[2022-04-06] MEDS ORDERED: INSULIN DETEMIR (LEVEMIR) 100 UNIT/ML SYR SQ STA (12:49)
[2022-04-06] MEDS: INSULIN ASPART (NovoLOG) 100 UNIT/ML VIAL SQ SCH ×3 (13:15→20:22)
[2022-04-06 14:02] VITALS: BMI 49.5
[2022-04-06 16:22] LABS: Glucose,Whole Blood 402 mg/dL (70-110)
[2022-04-06] MEDS ORDERED: INSULIN ASPART (NovoLOG) 100 UNIT/ML VIAL SQ SCH (17:30)
[2022-04-06 20:06] LABS: Glucose,Whole Blood 568 mg/dL (70-110)
[2022-04-06] MEDS: PRAMIPEXOLE 0.5 MG TAB PO SCH (20:35)
[2022-04-06] MEDS ORDERED: INSULIN DETEMIR (LEVEMIR) 100 UNIT/ML SYR SQ SCH (21:00)
[2022-04-07 01:55] LABS: Glucose,Whole Blood 459 mg/dL (70-110)
[2022-04-07] MEDS: INSULIN REGULAR 100 UNIT in SODIUM CHLORIDE 0.9% 100 ML IV SCH ×3 (02:33→16:35)
[2022-04-07 03:05] LABS: Glucose,Whole Blood 449 mg/dL (70-110)
[2022-04-07 03:33] LABS: Glucose,Whole Blood 366 mg/dL (70-110)
[2022-04-07 04:01] LABS: Glucose,Whole Blood 321 mg/dL (70-110)
[2022-04-07 04:32] LABS: Glucose,Whole Blood 285 mg/dL (70-110)
[2022-04-07] MEDS: PREGABALIN 100 MG CAP PO SCH ×3 (04:53→17:47)
[2022-04-07] MEDS: NAPROXEN 250 MG TAB PO SCH ×2 (04:53→17:47)
[2022-04-07] MEDS: oxyCODONE-APAP 10-325MG 1 EACH TAB PO PRN ×3 (04:53→20:18)
[2022-04-07] MEDS: tiZANidine 4 MG TAB PO SCH ×3 (04:53→17:48)
[2022-04-07] MEDS: LOSARTAN 50 MG TAB PO SCH (04:53)
[2022-04-07] MEDS: amLODIPine 5 MG TAB PO SCH (04:54)
[2022-04-07] MEDS: DULoxetine HCL 30 MG CAPSULE.DR PO SCH ×2 (04:54→17:48)
[2022-04-07] MEDS: Milnacipran Hcl [Savella] PO SCH ×2 (04:59→16:32)
[2022-04-07 05:01] LABS: Glucose,Whole Blood 262 mg/dL (70-110)
[2022-04-07 05:32] LABS: Glucose,Whole Blood 255 mg/dL (70-110)
[2022-04-07 06:01] LABS: Glucose,Whole Blood 214 mg/dL (70-110)
--- NOTE | 2022-04-07 06:01 | P.PN ---
Subjective Progress Note Date: 04/06/22 52-year-old male presents emergency Department with chief complaint of hyperglycemia. Patient states that he saw his PCP 2 days ago in which she received a shot of steroids concerned that he was developing pneumonia. Patient states he is not on current oral steroids or antibiotics. Patient states that he's had prior lobectomy from recurrent pneumonia, abscess. Patient states that his blood sugar read high on his meter he states he is on multiple medications he does admit to nausea vomiting increased thirst, frequency of urination. Patient's had hot and cold flashes no chest pain he states his breathing has been slightly worse. Patient's labs demonstrate findings of hyperosmolar nonketotic hyperglycemia. Patient corrected sodium is in the normal range. Patient has been treated with IV fluids and started on an IV insulin drip in the ED. Blood work in ED reveals a WBC of 10.9, hemoglobin 17.2, hematocrit 53.1. 04/06/2022 Patient is seen and evaluated in follow-up this morning and blood sugars have improved and will transition off insulin drip. Patient also with history of COPD although not in exacerbation. Patient was NPO and will resume consistent carb diet. Consult to dietitian and will order hemoglobin a1c. Patient is afebrile and denies chest pain or shortness of breath. Patient with chronic back pain and requesting his home meds be reordered. Recommend repeat am labs and possible insulin drip again if blood sugars remain uncontrolled. Review of systems: Constitutional: No reports of fatigue, fever, or chills Cardiovascular: No reports of chest pain or palpitations Respiratory: No reports of shortness of breath or cough GI: No reports of nausea, vomiting, or diarrhea : No reports of dysuria or retention Neurovascular: No reports of weakness or numbness All medications have been reviewed Active Medications Hydrocodone Bitart/Acetaminophen (Hydrocodone/Apap 10-325mg 1 Each Tab) 1 each PO BID [facility] Last Admin: 04/06/22 11:14 Dose: 1 each Albuterol Sulfate (Albuterol Nebulized 2.5 Mg/3 Ml) 2.5 mg INHALATION RT-TID [facility] Last Admin: 04/06/22 12:07 Dose: 2.5 mg Amlodipine Besylate (Amlodipine 5 Mg Tab) 5 mg PO DAILY@0500 [facility] Last Admin: 04/06/22 04:14 Dose: 5 mg Budesonide/Formoterol Fumarate (Symbicort 80-4.5 Mcg Inhaler) 2 puff INHALATION RT-BID [facility] Last Admin: 04/06/22 08:50 Dose: 2 puff Duloxetine HCl (Duloxetine Hcl 30 Mg Capsule.Dr) 30 mg PO BID@0500,1900 [facility] Last Admin: 04/06/22 04:14 Dose: 30 mg Insulin Aspart (Insulin Aspart (Novolog) 100 Unit/Ml Vial) 0 unit SQ ACHS [facility]; Protocol Last Admin: 04/06/22 13:15 Dose: Not Given Insulin Aspart (Insulin Aspart (Novolog) 100 Unit/Ml Vial) 2 unit SQ AC-TID [facility] Insulin Detemir (Insulin Detemir (Levemir) 100 Unit/Ml Syr) 15 unit SQ BID [facility] Ipratropium [place] (Ipratropium 0.5 Mg/2.5 Ml Nebu) 0.5 mg INHALATION RT-QID [facility] Last Admin: 04/06/22 12:07 Dose: 0.5 mg Losartan Potassium (Losartan 50 Mg Tab) 100 mg PO DAILY@0500 [facility] Last Admin: 04/06/22 04:21 Dose: Not Given Naproxen (Naproxen 250 Mg Tab) 500 mg PO BID@0500,1900 [facility] Last Admin: 04/06/22 04:15 Dose: 500 mg Milnacipran Hcl [ (Savella]) 50 mg PO BID@0500,1900 [facility] Last Admin: 04/06/22 04:21 Dose: Not Given Oxycodone/Acetaminophen (Oxycodone-Apap 10-325mg 1 Each Tab) 1 each PO TID PRN PRN Reason: Pain Last Admin: 04/06/22 11:14 Dose: 1 each Pramipexole Dihydrochloride (Pramipexole 0.5 Mg Tab) 0.5 mg PO HS@1900 [facility] Last Admin: 04/05/22 20:20 Dose: 0.5 mg Pregabalin (Pregabalin 100 Mg Cap) 200 mg PO TID@0500,1200,1900 [facility] Last Admin: 04/06/22 11:05 Dose: 200 mg Tizanidine HCl (Tizanidine 4 Mg Tab) 4 mg PO TID@0500,1200,1900 [facility] Last Admin: 04/06/22 11:05 Dose: 4 mg Physical exam: General appearance: alert and oriented x3, morbidly obese Heent: normocephalic, normal inspection, perrla, oral mucosa intact Neck exam: normal inspection with no lymphadenopathy noted Respiratory exam: decreased breath sounds with some scattered rhonchi noted. Cardiovascular Exam: S1, S2 muffled GI/Abdominal exam: soft, obese, normal bowel sounds. with no tenderness, guarding, rebound, or rigidity noted Neurological exam: alert, oriented X3 Assessment: -Hyperglycemia/ diabetic hyperosmolar nonketotic state -Marked hyponatremia; pseudohyponatremia -Hyperkalemia; consistent with hyperosmolar nonketotic state -Hypercalcemia; likely related to dehydration caused by hyperosmolar nonketotic state -COPD; not in exacerbation -Acute on chronic kidney disease stage 4 -Hypertension -Chronic back pain -DVT prophylaxis; SCDs/subcu heparin -full code Plan: Recommend to transition off of the insulin drip and will start sliding scale along with long acting and pre-meal insulin and monitor closely. Patient may need to continue insulin drip if sugars are uncontrolled. Will obtain hemoglobin a1c. Will likely need insulin on discharge. Patient with chronic back pain and will resume home medications. Sodium improving and will follow up with repeat labs. Encouraged increased activity as tolerated Strict consistent carb diet The impression and plan of care has been dictated by Linda Gonzalez, Nurse Practitioner as directed. Dr. Daniel MD I have performed a history and examination and MDM of this patient, discussed the same with the dictator, and agree with the dictator's assessment and plan as written ,documented as a scribe. Based on total visit time, I have performed more than 50% of the visit. Objective - Vital Signs Vital signs: Vital Signs Temp 97.9 F 04/06/22 08:00 Pulse 96 04/06/22 09:05 Resp 16 04/06/22 08:50 BP 119/74 04/06/22 08:00 Pulse Ox 97 04/06/22 08:00 FiO2 Intake & Output 04/05/22 04/06/22 04/06/22 18:59 06:59 18:59 Intake Total 101 294.376 Output Total 250 100 Balance -149 194.376 Weight 179.623 kg Intake: Intake, IV Titration 101 54.376 Amount Insulin Regular 100 unit 101 54.376 In Sodium Chloride 0.9% 100 ml @ 0.1 UNITS/KG/HR 18.142 mls/hr IV .Q5H35M [facility] Rx#:[id number] Oral 240 Output: Urine 250 100 Other: Voiding Method Urinal - Labs CBC & Chem 7: 04/05/22 16:01 04/06/22 02:23 Labs: Abnormal Lab Results - Last 24 Hours (Table) 04/05/22 04/05/22 04/05/22 Range/Units 15:07 15:30 16:01 WBC 10.9 H (3.8-10.6) k/uL Hct 53.2 H (39.0-53.0) % VBG pH (7.31-7.41) VBG pCO2 (37-51) mmHg VBG HCO3 (24-28) mmol/L Sodium (137-145) mmol/L Potassium (3.5-5.1) mmol/L Chloride (98-107) mmol/L Carbon Dioxide (22-30) mmol/L BUN (9-20) mg/dL Glucose (74-99) mg/dL POC Glucose (mg/dL) >600 H (70-110) mg/dL Plasma Lactic Acid Jase (0.7-2.0) mmol/L Calcium (8.4-10.2) mg/dL Phosphorus (2.5-4.5) mg/dL ALT (4-49) U/L Alkaline Phosphatase (38-126) U/L Urine Glucose (UA) 4+ H (Negative) 04/05/22 04/05/22 04/05/22 Range/Units 16:01 16:01 16:01 WBC (3.8-10.6) k/uL Hct (39.0-53.0) % VBG pH 7.52 H (7.31-7.41) VBG pCO2 26 L (37-51) mmHg VBG HCO3 21 L (24-28) mmol/L Sodium 115 L* (137-145) mmol/L Potassium 5.9 H (3.5-5.1) mmol/L Chloride 76 L (98-107) mmol/L Carbon Dioxide 20 L (22-30) mmol/L BUN 23 H (9-20) mg/dL Glucose 1128 H* (74-99) mg/dL POC Glucose (mg/dL) (70-110) mg/dL Plasma Lactic Acid Jase 5.3 H* (0.7-2.0) mmol/L Calcium 11.4 H (8.4-10.2) mg/dL Phosphorus (2.5-4.5) mg/dL ALT 51 H (4-49) U/L Alkaline Phosphatase 208 H (38-126) U/L Urine Glucose (UA) (Negative) 04/05/22 04/05/22 04/05/22 Range/Units 17:30 18:37 19:10 WBC (3.8-10.6) k/uL Hct (39.0-53.0) % VBG pH (7.31-7.41) VBG pCO2 (37-51) mmHg VBG HCO3 (24-28) mmol/L Sodium (137-145) mmol/L Potassium (3.5-5.1) mmol/L Chloride (98-107) mmol/L Carbon Dioxide (22-30) mmol/L BUN (9-20) mg/dL Glucose (74-99) mg/dL POC Glucose (mg/dL) >600 H >600 H 582 H (70-110) mg/dL Plasma Lactic Acid Jase (0.7-2.0) mmol/L Calcium (8.4-10.2) mg/dL Phosphorus (2.5-4.5) mg/dL ALT (4-49) U/L Alkaline Phosphatase (38-126) U/L Urine Glucose (UA) (Negative) 04/05/22 04/05/22 04/05/22 Range/Units 19:48 19:48 20:25 WBC (3.8-10.6) k/uL Hct (39.0-53.0) % VBG pH (7.31-7.41) VBG pCO2 (37-51) mmHg VBG HCO3 (24-28) mmol/L Sodium 123 L (137-145) mmol/L Potassium (3.5-5.1) mmol/L Chloride 89 L (98-107) mmol/L Carbon Dioxide 20 L (22-30) mmol/L BUN (9-20) mg/dL Glucose 490 H (74-99) mg/dL POC Glucose (mg/dL) 407 H (70-110) mg/dL Plasma Lactic Acid Jase 3.8 H* (0.7-2.0) mmol/L Calcium (8.4-10.2) mg/dL Phosphorus (2.5-4.5) mg/dL ALT (4-49) U/L Alkaline Phosphatase (38-126) U/L Urine Glucose (UA) (Negative) 04/05/22 04/05/22 04/05/22 Range/Units 21:17 21:53 22:52 WBC (3.8-10.6) k/uL Hct (39.0-53.0) % VBG pH (7.31-7.41) VBG pCO2 (37-51) mmHg VBG HCO3 (24-28) mmol/L Sodium (137-145) mmol/L Potassium (3.5-5.1) mmol/L Chloride (98-107) mmol/L Carbon Dioxide (22-30) mmol/L BUN (9-20) mg/dL Glucose (74-99) mg/dL POC Glucose (mg/dL) 326 H 189 H (70-110) mg/dL Plasma Lactic Acid Jase 2.2 H* (0.7-2.0) mmol/L Calcium (8.4-10.2) mg/dL Phosphorus (2.5-4.5) mg/dL ALT (4-49) U/L Alkaline Phosphatase (38-126) U/L Urine Glucose (UA) (Negative) 04/05/22 04/06/22 04/06/22 Range/Units 22:59 00:02 00:14 WBC (3.8-10.6) k/uL Hct (39.0-53.0) % VBG pH (7.31-7.41) VBG pCO2 (37-51) mmHg VBG HCO3 (24-28) mmol/L Sodium (137-145) mmol/L Potassium (3.5-5.1) mmol/L Chloride (98-107) mmol/L Carbon Dioxide (22-30) mmol/L BUN (9-20) mg/dL Glucose (74-99) mg/dL POC Glucose (mg/dL) 196 H 253 H (70-110) mg/dL Plasma Lactic Acid Jase (0.7-2.0) mmol/L Calcium (8.4-10.2) mg/dL Phosphorus 6.3 H (2.5-4.5) mg/dL ALT (4-49) U/L Alkaline Phosphatase (38-126) U/L Urine Glucose (UA) (Negative) 04/06/22 04/06/22 04/06/22 Range/Units 00:14 01:05 02:03 WBC (3.8-10.6) k/uL Hct (39.0-53.0) % VBG pH (7.31-7.41) VBG pCO2 (37-51) mmHg VBG HCO3 (24-28) mmol/L Sodium 130 L (137-145) mmol/L Potassium (3.5-5.1) mmol/L Chloride 92 L (98-107) mmol/L Carbon Dioxide (22-30) mmol/L BUN (9-20) mg/dL Glucose 250 H (74-99) mg/dL POC Glucose (mg/dL) 253 H 247 H (70-110) mg/dL Plasma Lactic Acid Jase (0.7-2.0) mmol/L Calcium (8.4-10.2) mg/dL Phosphorus (2.5-4.5) mg/dL ALT (4-49) U/L Alkaline Phosphatase (38-126) U/L Urine Glucose (UA) (Negative) 04/06/22 04/06/22 04/06/22 Range/Units 02:23 03:17 04:07 WBC (3.8-10.6) k/uL Hct (39.0-53.0) % VBG pH (7.31-7.41) VBG pCO2 (37-51) mmHg VBG HCO3 (24-28) mmol/L Sodium (137-145) mmol/L Potassium (3.5-5.1) mmol/L Chloride (98-107) mmol/L Carbon Dioxide (22-30) mmol/L BUN (9-20) mg/dL Glucose 227 H (74-99) mg/dL POC Glucose (mg/dL) 238 H 244 H (70-110) mg/dL Plasma Lactic Acid Jase (0.7-2.0) mmol/L Calcium (8.4-10.2) mg/dL Phosphorus (2.5-4.5) mg/dL ALT (4-49) U/L Alkaline Phosphatase (38-126) U/L Urine Glucose (UA) (Negative) 04/06/22 04/06/22 04/06/22 Range/Units 05:04 06:00 06:56 WBC (3.8-10.6) k/uL Hct (39.0-53.0) % VBG pH (7.31-7.41) VBG pCO2 (37-51) mmHg VBG HCO3 (24-28) mmol/L Sodium (137-145) mmol/L Potassium (3.5-5.1) mmol/L Chloride (98-107) mmol/L Carbon Dioxide (22-30) mmol/L BUN (9-20) mg/dL Glucose (74-99) mg/dL POC Glucose (mg/dL) 210 H 172 H 132 H (70-110) mg/dL Plasma Lactic Acid Jase (0.7-2.0) mmol/L Calcium (8.4-10.2) mg/dL Phosphorus (2.5-4.5) mg/dL ALT (4-49) U/L Alkaline Phosphatase (38-126) U/L Urine Glucose (UA) (Negative) 04/06/22 04/06/22 Range/Units 08:02 09:18 WBC (3.8-10.6) k/uL Hct (39.0-53.0) % VBG pH (7.31-7.41) VBG pCO2 (37-51) mmHg VBG HCO3 (24-28) mmol/L Sodium (137-145) mmol/L Potassium (3.5-5.1) mmol/L Chloride (98-107) mmol/L Carbon Dioxide (22-30) mmol/L BUN (9-20) mg/dL Glucose (74-99) mg/dL POC Glucose (mg/dL) 188 H 227 H (70-110) mg/dL Plasma Lactic Acid Jase (0.7-2.0) mmol/L Calcium (8.4-10.2) mg/dL Phosphorus (2.5-4.5) mg/dL ALT (4-49) U/L Alkaline Phosphatase (38-126) U/L Urine Glucose (UA) (Negative)
[2022-04-07] MEDS: SYMBICORT 80-4.5 MCG INHALER INHALATION SCH ×2 (07:20→20:50)
[2022-04-07] MEDS: IPRATROPIUM 0.5 MG/2.5 ML NEBU INHALATION SCH ×4 (07:20→20:50)
[2022-04-07] MEDS: ALBUTEROL NEBULIZED 2.5 MG/3 ML INHALATION SCH ×3 (07:20→20:47)
[2022-04-07] MEDS ORDERED: INSULIN ASPART (NovoLOG) 100 UNIT/ML VIAL SQ SCH (07:30)
[2022-04-07 07:58] LABS: Glucose,Whole Blood 234 mg/dL (70-110)
[2022-04-07] MEDS: HYDROcodone/APAP 10-325MG 1 EACH TAB PO SCH ×2 (08:38→20:19)
[2022-04-07 09:57] LABS: Glucose,Whole Blood 304 mg/dL (70-110)
[2022-04-07 11:58] LABS: Glucose,Whole Blood 279 mg/dL (70-110)
[2022-04-07 14:01] LABS: Glucose,Whole Blood 402 mg/dL (70-110)
[2022-04-07 16:03] LABS: Glucose,Whole Blood 290 mg/dL (70-110)
[2022-04-07] MEDS: PRAMIPEXOLE 0.5 MG TAB PO SCH (17:48)
[2022-04-07 18:05] LABS: Glucose,Whole Blood 311 mg/dL (70-110)
[2022-04-07 20:02] LABS: Glucose,Whole Blood 264 mg/dL (70-110)
--- NOTE | 2022-04-07 20:02 | P.PN ---
Subjective Progress Note Date: 04/07/22 52-year-old male presents emergency Department with chief complaint of hyperglycemia. Patient states that he saw his PCP 2 days ago in which she received a shot of steroids concerned that he was developing pneumonia. Patient states he is not on current oral steroids or antibiotics. Patient states that he's had prior lobectomy from recurrent pneumonia, abscess. Patient states that his blood sugar read high on his meter he states he is on multiple medications he does admit to nausea vomiting increased thirst, frequency of urination. Patient's had hot and cold flashes no chest pain he states his breathing has been slightly worse. Patient's labs demonstrate findings of hyperosmolar nonketotic hyperglycemia. Patient corrected sodium is in the normal range. Patient has been treated with IV fluids and started on an IV insulin drip in the ED. Blood work in ED reveals a WBC of 10.9, hemoglobin 17.2, hematocrit 53.1. 04/06/2022 Patient is seen and evaluated in follow-up this morning and blood sugars have improved and will transition off insulin drip. Patient also with history of COPD although not in exacerbation. Patient was NPO and will resume consistent carb diet. Consult to dietitian and will order hemoglobin a1c. Patient is afebrile and denies chest pain or shortness of breath. Patient with chronic back pain and requesting his home meds be reordered. Recommend repeat am labs and possible insulin drip again if blood sugars remain uncontrolled. 04/07/2022 Patient is evaluated today and blood sugars continued to be elevated requiring insulin drip again. REcommend continuing with insulin drip for 24 hours and encouraged strict diet control and will also add long acting at night. Patient hemoglobin a1c is 10.6 and will also starte oral metformin. Will refer to endocrine outpatient. Patient is afebrile and denies chest pain or shortness of breath. Patient denies nausea or vomiting and tolerating diet. Patient needs diabetic supplies and will discuss with case management about this. Review of systems: Constitutional: No reports of fatigue, fever, or chills Cardiovascular: No reports of chest pain or palpitations Respiratory: No reports of shortness of breath or cough GI: No reports of nausea, vomiting, or diarrhea, patient reports to feeling hungry. : No reports of dysuria or retention Neurovascular: No reports of weakness or numbness, reports his chronic back pain All medications have been reviewed Active Medications Hydrocodone Bitart/Acetaminophen (Hydrocodone/Apap 10-325mg 1 Each Tab) 1 each PO BID [facility] Last Admin: 04/07/22 08:38 Dose: 1 each Albuterol Sulfate (Albuterol Nebulized 2.5 Mg/3 Ml) 2.5 mg INHALATION RT-TID [facility] Last Admin: 04/07/22 11:23 Dose: 2.5 mg Amlodipine Besylate (Amlodipine 5 Mg Tab) 5 mg PO DAILY@0500 [facility] Last Admin: 04/07/22 04:54 Dose: 5 mg Budesonide/Formoterol Fumarate (Symbicort 80-4.5 Mcg Inhaler) 2 puff INHALATION RT-BID [facility] Last Admin: 04/07/22 07:20 Dose: 2 puff Duloxetine HCl (Duloxetine Hcl 30 Mg Capsule.Dr) 30 mg PO BID@0500,1900 [facility] Last Admin: 04/07/22 17:48 Dose: 30 mg Insulin Human Regular 100 unit (/ Sodium Chloride) 101 mls @ 0 mls/hr IV .Q0M [facility]; Protocol Stop: 04/07/22 21:00 Last Admin: 04/07/22 16:35 Dose: 14.36 units/hr, 14.5 mls/hr Insulin Detemir (Insulin Detemir (Levemir) 100 Unit/Ml Syr) 25 unit SQ [facility] Ipratropium [place] (Ipratropium 0.5 Mg/2.5 Ml Nebu) 0.5 mg INHALATION RT-QID [facility] Last Admin: 04/07/22 15:52 Dose: 0.5 mg Losartan Potassium (Losartan 50 Mg Tab) 100 mg PO DAILY@0500 [facility] Last Admin: 04/07/22 04:53 Dose: 100 mg Naproxen (Naproxen 250 Mg Tab) 500 mg PO BID@0500,1900 [facility] Last Admin: 04/07/22 17:47 Dose: 500 mg Milnacipran Hcl [ (Savella]) 50 mg PO BID@0500,1900 [facility] Last Admin: 04/07/22 16:32 Dose: Not Given Oxycodone/Acetaminophen (Oxycodone-Apap 10-325mg 1 Each Tab) 1 each PO TID PRN PRN Reason: Pain Last Admin: 04/07/22 12:32 Dose: 1 each Pramipexole Dihydrochloride (Pramipexole 0.5 Mg Tab) 0.5 mg PO HS@1900 [facility] Last Admin: 04/07/22 17:48 Dose: 0.5 mg Pregabalin (Pregabalin 100 Mg Cap) 200 mg PO TID@0500,1200,1900 [facility] Last Admin: 04/07/22 17:47 Dose: 200 mg Tizanidine HCl (Tizanidine 4 Mg Tab) 4 mg PO TID@0500,1200,1900 [facility] Last Admin: 04/07/22 17:48 Dose: 4 mg Physical exam: General appearance: alert and oriented x3, morbidly obese Heent: normocephalic, normal inspection, perrla, oral mucosa intact Neck exam: normal inspection with no lymphadenopathy noted Respiratory exam: decreased breath sounds with some scattered rhonchi noted. Cardiovascular Exam: S1, S2 muffled GI/Abdominal exam: soft, obese, normal bowel sounds. with no tenderness, guarding, rebound, or rigidity noted Neurological exam: alert, oriented X3 Assessment: -Hyperglycemia/ diabetic hyperosmolar nonketotic state -Marked hyponatremia; pseudohyponatremia -Hyperkalemia; consistent with hyperosmolar nonketotic state -Hypercalcemia; likely related to dehydration caused by hyperosmolar nonketotic state -COPD; not in exacerbation -Acute on chronic kidney disease stage 4 -Hypertension -Chronic back pain -DVT prophylaxis; SCDs/subcu heparin -full code Plan: Recommend to continue the insulin drip overnight and will add long acting at night and transition to sliding scale, long acting and pre-meal insulin. Will add metformin 500mg bid and will refer to endocrine outpatient. hemoglobin a1c is 10.6 and will discharge on insulin. Will likely need insulin on discharge. Patient with chronic back pain and recommend to continue home medications. Encouraged increased activity as tolerated Strict consistent carb diet Possible discharge in 24 hours. The impression and plan of care has been dictated by Linda Gonzalez, Nurse Practitioner as directed. Dr. Daniel MD I have performed a history and examination and MDM of this patient, discussed the same with the dictator, and agree with the dictator's assessment and plan as written ,documented as a scribe. Based on total visit time, I have performed more than 50% of the visit. Objective - Vital Signs Vital signs: Vital Signs Temp 97.2 F L 04/07/22 08:00 Pulse 98 04/07/22 08:00 Resp 16 04/07/22 08:00 BP 133/81 04/07/22 08:00 Pulse Ox 95 04/07/22 08:00 FiO2 Intake & Output 04/06/22 04/07/22 04/07/22 18:59 06:59 18:59 Intake Total 1412.407 308.434 141.75 Output Total 700 450 Balance 712.407 -141.566 141.75 Weight 179.623 kg Intake: Intake, IV Titration 692.407 68.434 21.75 Amount D5-0.45% NaCl with KCl 600 20Meq/l 1,000 ml @ 150 mls/hr IV .Q6H40M [facility] Rx# :[id number] Insulin Regular 100 unit 92.407 In Sodium Chloride 0.9% 100 ml @ 0.1 UNITS/KG/HR 18.142 mls/hr IV .Q5H35M [facility] Rx#:[id number] Insulin Regular 100 unit 68.434 21.75 In Sodium Chloride 0.9% 100 ml @ Titrate IV .Q0M [facility] Rx#:[id number] Oral 720 240 120 Output: Urine 700 450 Other: Voiding Method Urinal Urinal # Voids 1 - Labs CBC & Chem 7: 04/05/22 16:01 04/06/22 02:23 Labs: Abnormal Lab Results - Last 24 Hours (Table) 04/06/22 04/06/22 04/06/22 Range/Units 09:18 10:02 10:58 POC Glucose (mg/dL) 227 H 272 H 245 H (70-110) mg/dL Hemoglobin A1c (0.0-6.0) % 04/06/22 04/06/22 04/06/22 Range/Units 14:01 16:21 20:05 POC Glucose (mg/dL) 402 H 568 H (70-110) mg/dL Hemoglobin A1c 10.6 H (0.0-6.0) % 04/07/22 04/07/22 04/07/22 Range/Units 01:53 03:04 03:30 POC Glucose (mg/dL) 459 H 449 H 366 H (70-110) mg/dL Hemoglobin A1c (0.0-6.0) % 04/07/22 04/07/22 04/07/22 Range/Units 03:59 04:30 04:59 POC Glucose (mg/dL) 321 H 285 H 262 H (70-110) mg/dL Hemoglobin A1c (0.0-6.0) % 04/07/22 04/07/22 04/07/22 Range/Units 05:31 05:59 07:56 POC Glucose (mg/dL) 255 H 214 H 234 H (70-110) mg/dL Hemoglobin A1c (0.0-6.0) %
[2022-04-07] MEDS: metFORMIN 500 MG TAB PO SCH (20:24)
[2022-04-07] MEDS: INSULIN DETEMIR (LEVEMIR) 100 UNIT/ML SYR SQ SCH ×2 (20:25→21:23)
[2022-04-07 22:02] LABS: Glucose,Whole Blood 241 mg/dL (70-110)
[2022-04-08 00:09] LABS: Glucose,Whole Blood 317 mg/dL (70-110)
[2022-04-08 02:06] LABS: Glucose,Whole Blood 260 mg/dL (70-110)
[2022-04-08] MEDS: PREGABALIN 100 MG CAP PO SCH ×3 (04:59→16:59)
[2022-04-08] MEDS: oxyCODONE-APAP 10-325MG 1 EACH TAB PO PRN ×3 (04:59→20:15)
[2022-04-08] MEDS: LOSARTAN 50 MG TAB PO SCH (04:59)
[2022-04-08] MEDS: NAPROXEN 250 MG TAB PO SCH ×2 (05:00→16:59)
[2022-04-08] MEDS: amLODIPine 5 MG TAB PO SCH (05:00)
[2022-04-08] MEDS: tiZANidine 4 MG TAB PO SCH ×3 (05:00→16:59)
[2022-04-08] MEDS: metFORMIN 500 MG TAB PO SCH ×2 (05:00→16:59)
[2022-04-08] MEDS: DULoxetine HCL 30 MG CAPSULE.DR PO SCH ×2 (05:00→16:59)
[2022-04-08] MEDS: Milnacipran Hcl [Savella] PO SCH ×2 (05:06→20:07)
[2022-04-08 06:13] LABS: Glucose,Whole Blood 338 mg/dL (70-110)
[2022-04-08] MEDS: INSULIN ASPART (NovoLOG) 100 UNIT/ML VIAL SQ SCH ×5 (06:30→21:42)
[2022-04-08] MEDS: ALBUTEROL NEBULIZED 2.5 MG/3 ML INHALATION SCH ×3 (07:13→19:42)
[2022-04-08] MEDS: SYMBICORT 80-4.5 MCG INHALER INHALATION SCH ×2 (07:14→19:42)
[2022-04-08] MEDS: IPRATROPIUM 0.5 MG/2.5 ML NEBU INHALATION SCH ×4 (07:14→20:02)
[2022-04-08] MEDS ORDERED: INSULIN DETEMIR (LEVEMIR) 100 UNIT/ML SYR SQ SCH (09:00)
[2022-04-08] MEDS: HYDROcodone/APAP 10-325MG 1 EACH TAB PO SCH ×2 (09:53→21:41)
[2022-04-08 11:18] LABS: Glucose,Whole Blood 461 mg/dL (70-110)
[2022-04-08] MEDS ORDERED: INSULIN ASPART (NovoLOG) 100 UNIT/ML VIAL SQ SCH (12:30)
--- NOTE | 2022-04-08 14:18 | P.PN ---
Subjective Progress Note Date: 04/08/22 52-year-old male presents emergency Department with chief complaint of hyperglycemia. Patient states that he saw his PCP 2 days ago in which she received a shot of steroids concerned that he was developing pneumonia. Patient states he is not on current oral steroids or antibiotics. Patient states that he's had prior lobectomy from recurrent pneumonia, abscess. Patient states that his blood sugar read high on his meter he states he is on multiple medications he does admit to nausea vomiting increased thirst, frequency of urination. Patient's had hot and cold flashes no chest pain he states his breathing has been slightly worse. Patient's labs demonstrate findings of hyperosmolar nonketotic hyperglycemia. Patient corrected sodium is in the normal range. Patient has been treated with IV fluids and started on an IV insulin drip in the ED. Blood work in ED reveals a WBC of 10.9, hemoglobin 17.2, hematocrit 53.1. 04/06/2022 Patient is seen and evaluated in follow-up this morning and blood sugars have improved and will transition off insulin drip. Patient also with history of COPD although not in exacerbation. Patient was NPO and will resume consistent carb diet. Consult to dietitian and will order hemoglobin a1c. Patient is afebrile and denies chest pain or shortness of breath. Patient with chronic back pain and requesting his home meds be reordered. Recommend repeat am labs and possible insulin drip again if blood sugars remain uncontrolled. 04/07/2022 Patient is evaluated today and blood sugars continued to be elevated requiring insulin drip again. REcommend continuing with insulin drip for 24 hours and encouraged strict diet control and will also add long acting at night. Patient hemoglobin a1c is 10.6 and will also starte oral metformin. Will refer to endocrine outpatient. Patient is afebrile and denies chest pain or shortness of breath. Patient denies nausea or vomiting and tolerating diet. Patient needs diabetic supplies and will discuss with case management about this. 04/08/2022 Patient is seen and evaluated in follow-up today and blood sugars continue to be elevated. Hemoglobin A1c was 10.6 and a lengthy discussion was had with the patient about diet compliance along with medication compliance. Patient will require insulin on discharge and working with social work for discharge planning and diabetic supplies. Dietitian following and also had a lengthy discussion about amount of intake with each meal and following a consistent carbohydrate d iet. Patient continues to have his chronic back pain reporting that his pain medications are not being given at the right time and this was discussed with the nursing staff. Reviewed medication reconciliation and medications are ordered as patient takes him at home. They are when necessary and this was discussed with the patient as well. Patient is afebrile denies any chest pain or shortness of breath. Patient is anxious about wanting to go home and will monitor closely overnight as blood sugars continue to be in the 400 to 500s. Patient has been started on pre-meal insulin along with long-acting and sliding scale and will continue. Patient reports the consistent carbohydrate diet also contains a number of sugars on the tray and reports this is not enough food to maintain his intake and requirements. Of note patient does have a BMI of 49.5. Review of systems: Constitutional: No reports of fatigue, fever, or chills Cardiovascular: No reports of chest pain or palpitations Respiratory: No reports of shortness of breath or cough GI: No reports of nausea, vomiting, or diarrhea : No reports of dysuria or retention Neurovascular: No reports of weakness or numbness, reports his chronic back pain All medications have been reviewed Active Medications Hydrocodone Bitart/Acetaminophen (Hydrocodone/Apap 10-325mg 1 Each Tab) 1 each PO BID [facility] Last Admin: 04/08/22 09:53 Dose: 1 each Albuterol Sulfate (Albuterol Nebulized 2.5 Mg/3 Ml) 2.5 mg INHALATION RT-TID [facility] Last Admin: 04/08/22 11:18 Dose: Not Given Amlodipine Besylate (Amlodipine 5 Mg Tab) 5 mg PO DAILY@0500 [facility] Last Admin: 04/08/22 05:00 Dose: 5 mg Budesonide/Formoterol Fumarate (Symbicort 80-4.5 Mcg Inhaler) 2 puff INHALATION RT-BID [facility] Last Admin: 04/08/22 07:14 Dose: Not Given Duloxetine HCl (Duloxetine Hcl 30 Mg Capsule.Dr) 30 mg PO BID@0500,1900 [facility] Last Admin: 04/08/22 05:00 Dose: 30 mg Insulin Aspart (Insulin Aspart (Novolog) 100 Unit/Ml Vial) 0 unit SQ [id number] [facility]; Protocol Last Admin: 04/08/22 11:18 Dose: 18 unit Insulin Aspart (Insulin Aspart (Novolog) 100 Unit/Ml Vial) 10 unit SQ AC-TID [facility] Last Admin: 04/08/22 11:18 Dose: 10 unit Insulin Detemir (Insulin Detemir (Levemir) 100 Unit/Ml Syr) 25 unit SQ BID [facility] Last Admin: 04/08/22 11:15 Dose: 25 unit Ipratropium [place] (Ipratropium 0.5 Mg/2.5 Ml Nebu) 0.5 mg INHALATION RT-QID S Last Admin: 04/08/22 11:18 Dose: Not Given Losartan Potassium (Losartan 50 Mg Tab) 100 mg PO DAILY@0500 [facility] Last Admin: 04/08/22 04:59 Dose: 100 mg Metformin HCl (Metformin 500 Mg Tab) 500 mg PO BID-W/MEALS [facility] Last Admin: 04/08/22 05:00 Dose: 500 mg Naproxen (Naproxen 250 Mg Tab) 500 mg PO BID@0500,1900 [facility] Last Admin: 04/08/22 05:00 Dose: 500 mg Milnacipran Hcl [ (Savella]) 50 mg PO BID@0500,1900 [facility] Last Admin: 04/08/22 05:06 Dose: Not Given Oxycodone/Acetaminophen (Oxycodone-Apap 10-325mg 1 Each Tab) 1 each PO TID PRN PRN Reason: Pain Last Admin: 04/08/22 11:16 Dose: 1 each Pramipexole Dihydrochloride (Pramipexole 0.5 Mg Tab) 0.5 mg PO HS@1900 [facility] Last Admin: 04/07/22 17:48 Dose: 0.5 mg Pregabalin (Pregabalin 100 Mg Cap) 200 mg PO TID@0500,1200,1900 [facility] Last Admin: 04/08/22 11:19 Dose: 200 mg Tizanidine HCl (Tizanidine 4 Mg Tab) 4 mg PO TID@0500,1200,1900 [facility] Last Admin: 04/08/22 11:16 Dose: 4 mg Physical exam: General appearance: alert and oriented x3, morbidly obese Heent: normocephalic, normal inspection, perrla, oral mucosa intact Neck exam: normal inspection with no lymphadenopathy noted Respiratory exam: decreased breath sounds with some scattered rhonchi noted. Cardiovascular Exam: S1, S2 muffled GI/Abdominal exam: soft, obese, normal bowel sounds. with no tenderness, guarding, rebound, or rigidity noted Neurological exam: alert, oriented X3 Assessment: -Hyperglycemia/ diabetic hyperosmolar nonketotic state -Marked hyponatremia; pseudohyponatremia -Diabetes mellitus, type II uncontrolled with hyperglycemia -Hyperkalemia; consistent with hyperosmolar nonketotic state -Hypercalcemia; likely related to dehydration caused by hyperosmolar nonketotic state -COPD; not in exacerbation -Acute on chronic kidney disease stage 4 -Hypertension -Chronic back pain -DVT prophylaxis; SCDs/subcu heparin -full code Plan: Recommend to continue with long acting ice daily along with sliding scale and pre-meal insulin and strict consistent carb diet. hemoglobin a1c is 10.6 and will discharge on insulin. Will need insulin on discharge. Recommend to refrain from using insulin drip to adjust insulins that will be required on discharge Patient with chronic back pain and recommend to continue home medications as scheduled. Encouraged increased activity as tolerated Strict consistent carb diet Past with social service liaison about discharge planning as patient will need diabetic testing supplies along with glucometer Possible discharge in 24 hours. The impression and plan of care has been dictated by Linda Gonzalez, Nurse Practitioner as directed. Dr. Hazel MD I have performed a history and examination and MDM of this patient, discussed the same with the dictator, and agree with the dictator's assessment and plan as written ,documented as a scribe. Based on total visit time, I have performed more than 50% of the visit. Objective - Vital Signs Vital signs: Vital Signs Temp 98.4 F 04/08/22 03:26 Pulse 92 04/08/22 03:26 Resp 18 04/08/22 03:26 BP 132/75 04/08/22 03:26 Pulse Ox 96 04/08/22 03:26 FiO2 Intake & Output 04/07/22 04/08/22 04/08/22 18:59 06:59 18:59 Intake Total 493.566 99.625 Output Total 1350 1150 Balance -856.434 -1050.375 Intake: Intake, IV Titration 133.566 99.625 Amount Insulin Regular 100 unit 133.566 99.625 In Sodium Chloride 0.9% 100 ml @ Titrate IV .Q0M [facility] Rx#:[id number] Oral 360 Output: Urine 1350 1150 Other: Voiding Method Urinal Urinal - Labs CBC & Chem 7: 04/05/22 16:01 04/06/22 02:23 Labs: Abnormal Lab Results - Last 24 Hours (Table) 04/07/22 04/07/22 04/07/22 Range/Units 09:55 11:57 14:00 POC Glucose (mg/dL) 304 H 279 H 402 H (70-110) mg/dL 04/07/22 04/07/22 04/07/22 Range/Units 16:01 18:03 20:01 POC Glucose (mg/dL) 290 H 311 H 264 H (70-110) mg/dL 04/07/22 04/08/22 04/08/22 Range/Units 22:00 00:08 02:04 POC Glucose (mg/dL) 241 H 317 H 260 H (70-110) mg/dL 04/08/22 Range/Units 06:10 POC Glucose (mg/dL) 338 H (70-110) mg/dL
[2022-04-08 16:42] LABS: Glucose,Whole Blood 375 mg/dL (70-110)
[2022-04-08] MEDS: PRAMIPEXOLE 0.5 MG TAB PO SCH (16:59)
[2022-04-08 20:41] LABS: Glucose,Whole Blood 311 mg/dL (70-110)
[2022-04-08] MEDS: INSULIN DETEMIR (LEVEMIR) 100 UNIT/ML SYR SQ SCH (21:42)
[2022-04-09 02:16] LABS: Glucose,Whole Blood 302 mg/dL (70-110)
[2022-04-09] MEDS: INSULIN ASPART (NovoLOG) 100 UNIT/ML VIAL SQ SCH ×5 (02:22→12:45)
[2022-04-09] MEDS: oxyCODONE-APAP 10-325MG 1 EACH TAB PO PRN ×2 (03:27→12:54)
[2022-04-09] MEDS: Milnacipran Hcl [Savella] PO SCH (05:01)
[2022-04-09] MEDS: NAPROXEN 250 MG TAB PO SCH (05:30)
[2022-04-09] MEDS: LOSARTAN 50 MG TAB PO SCH (05:30)
[2022-04-09] MEDS: DULoxetine HCL 30 MG CAPSULE.DR PO SCH (05:30)
[2022-04-09] MEDS: amLODIPine 5 MG TAB PO SCH (05:30)
[2022-04-09] MEDS: PREGABALIN 100 MG CAP PO SCH ×2 (05:30→12:44)
[2022-04-09] MEDS: tiZANidine 4 MG TAB PO SCH ×2 (05:31→12:55)
[2022-04-09 07:11] LABS: Glucose,Whole Blood 238 mg/dL (70-110)
[2022-04-09 07:35] LABS: African American GFR (CKD) >90 (>60 ml/min/1.73 sqM); Anion Gap 6 mmol/L; Blood Urea Nitrogen 17 mg/dL (9-20); Calcium 9.3 mg/dL (8.4-10.2); Carbon Dioxide 28 mmol/L (22-30); Chloride 98 mmol/L (98-107); Glucose 223 mg/dL (74-99); Non-African American GFR(CKD) >90 (>60 ml/min/1.73 sqM); Potassium 4.2 mmol/L (3.5-5.1); Sodium 132 mmol/L (137-145)
[2022-04-09] MEDS: HYDROcodone/APAP 10-325MG 1 EACH TAB PO SCH (08:15)
[2022-04-09] MEDS: metFORMIN 500 MG TAB PO SCH (08:19)
[2022-04-09] MEDS: SYMBICORT 80-4.5 MCG INHALER INHALATION SCH (08:49)
[2022-04-09] MEDS: ALBUTEROL NEBULIZED 2.5 MG/3 ML INHALATION SCH ×2 (08:49→12:00)
[2022-04-09] MEDS: IPRATROPIUM 0.5 MG/2.5 ML NEBU INHALATION SCH ×2 (09:09→12:00)
[2022-04-09] MEDS: INSULIN DETEMIR (LEVEMIR) 100 UNIT/ML SYR SQ SCH (10:04)
[2022-04-09 11:46] LABS: Glucose,Whole Blood 254 mg/dL (70-110)
[2022-04-09 12:55] VITALS: BP 115/75; PULSE 97; RESP 17; TEMP 97.9
--- NOTE | 2022-04-11 01:04 | P.DS ---
Providers Date of admission: 04/05/22 17:25 Expected date of discharge: 04/09/22 Attending physician: Jaida Day MD Primary care physician: Patric Granda Hospital Course: Final diagnosis -Hyperglycemia/ diabetic hyperosmolar nonketotic state -Marked hyponatremia; pseudohyponatremia -Diabetes mellitus, type II uncontrolled with hyperglycemia -Hyperkalemia; consistent with hyperosmolar nonketotic state -Hypercalcemia; likely related to dehydration caused by hyperosmolar nonketotic state -COPD; not in exacerbation -Acute on chronic kidney disease stage 4 -Hypertension -Chronic back pain -DVT prophylaxis -full code Discharge disposition Patient is being discharged in a stable condition with guarded prognosis to home. Patient will follow-up with Dr. Granda in the outpatient setting upon discharge. Patient is to continue with insulin regimen as prescribed and recommend outpatient follow up with DR. Guy endocrine. Total time taken is greater than 35 minutes. Hospital course This is a 52-year-old male who was recently admitted with non-ketoacidosis hyperglycemia. Patient hgba1c is 10.6 and will require insulin on discharge. Patient recently received a steroid shot for possible pneumonia and had elevated blood sugars. Patient is noncompliant with diet and lengthy discussion was had with patient about strict diabetic diet and weight loss. Patient also follows with pain management and Dr. Granda outpatient for chronic back pain. Patient did require insulin drip during hospitalization. Patient will continue on premeal, sliding scale, and long acting as written. Currently no reports of chest pain, shortness of breath, or palpitations. Patient is afebrile. No reports of nausea or vomiting and patient is tolerating diet. Patient will be discharged home today Physical exam: Gen: This is a 52 year old mmorbidly obese male who is awake, alert and oriented x3. HEENT: Head is atraumatic, normocephalic. Pupils equal, round. Sclerae is anicteric. NECK: Supple. No JVD. No lymphadenopathy. No thyromegaly. LUNGS: diminished breath sounds bilaterally with No wheezes or rhonchi. No intercostal retractions. HEART: Regular rate and rhythm. No murmur. ABDOMEN: Soft. obese. Bowel sounds are present. No masses. No tenderness. EXTREMITIES: No pedal edema. No calf tenderness. NEUROLOGICAL: Patient is awake, alert and oriented x3. Cranial nerves 2 through 12 are grossly intact. Please refer to medication reconciliation sheet for a list of medications. The impression and plan of care has been dictated by Linda Gonzalez, Nurse Practitioner as directed. Dr. Daniel MD I have performed a history and examination and MDM of this patient, discussed the same with the dictator, and agree with the dictator's assessment and plan as written ,documented as a scribe. Based on total visit time, I have performed more than 50% of the visit. Patient Condition at Discharge: Stable Plan - Discharge Summary New Discharge Prescriptions: New metFORMIN HCL [Glucophage] 500 mg PO BID-W/MEALS 30 Days #60 tab INSULIN ASPART (NovoLOG) [NovoLOG (formulary)] 20 unit SQ AC-TID 30 Days #8 each INSULIN ASPART (NovoLOG) [NovoLOG (formulary)] 0 unit SQ ACHS each Insulin Detemir (Levemir) [Levemir] 35 unit SQ BID 30 Days #10 each Continue Albuterol Sulfate [Albuterol Sulfate Hfa] 2 puff INHALATION RT-TID DULoxetine HCL [Cymbalta] 30 mg PO BID@0500,1900 oxyCODONE HCL/ACETAMINOPHEN [Percocet 10-325 mg] 1 tab PO TID@0500,1200,1900 Pregabalin [Lyrica] 200 mg PO TID@0500,1200,1900 Losartan Potassium 100 mg PO DAILY@0500 Fluticasone/Umeclidin/Vilanter [Trelegy Ellipta 100-62.5-25] 1 puff INHALATION RT-HS@1900 Milnacipran HCl [Savella] 50 mg PO BID@0500,1900 HYDROcodone/APAP 10-325MG [[place] 10-325] 1 tab PO BID@0500,1200 Naloxone HCl [Narcan] 4 mg NASAL ONCE PRN PRN Reason: overdose tiZANidine [Zanaflex] 4 mg PO TID@0500,1200,1900 Pramipexole [Mirapex] 0.5 mg PO HS@1900 Naproxen [Naprosyn] 500 mg PO BID@0500,1900 amLODIPine [Norvasc] 5 mg PO DAILY@0500 Discharge Medication List Albuterol Sulfate [Albuterol Sulfate Hfa] 2 puff INHALATION RT-TID 06/05/20 [History] DULoxetine HCL [Cymbalta] 30 mg PO BID@0500,19006/05/20 [History] Pregabalin [Lyrica] 200 mg PO TID@0500,1200,189906/05/20 [History] oxyCODONE HCL/ACETAMINOPHEN [Percocet 10-325 mg] 1 tab PO TID@0500,1200,189906/05/20 [History] Fluticasone/Umeclidin/Vilanter [Trelegy Ellipta 100-62.5-25] 1 puff INHALATION RT-HS@189904/05/22 [History] HYDROcodone/APAP 10-325MG [[place] 10-325] 1 tab PO BID@0500,1200 04/05/22 [History] Losartan Potassium 100 mg PO DAILY@49904/05/22 [History] Milnacipran HCl [Savella] 50 mg PO BID@0500,19004/05/22 [History] Naloxone HCl [Narcan] 4 mg NASAL ONCE PRN 04/05/22 [History] Naproxen [Naprosyn] 500 mg PO BID@0500,189904/05/22 [History] Pramipexole [Mirapex] 0.5 mg PO HS@189904/05/22 [History] amLODIPine [Norvasc] 5 mg PO DAILY@49904/05/22 [History] tiZANidine [Zanaflex] 4 mg PO TID@0500,1200,189904/05/22 [History] INSULIN ASPART (NovoLOG) [NovoLOG (formulary)] 0 unit SQ ACHS each 04/09/22 [Rx] INSULIN ASPART (NovoLOG) [NovoLOG (formulary)] 20 unit SQ AC-TID 30 Days #8 each 04/09/22 [Rx] Insulin Detemir (Levemir) [Levemir] 35 unit SQ BID 30 Days #10 each 04/09/22 [Rx] metFORMIN HCL [Glucophage] 500 mg PO BID-W/MEALS 30 Days #60 tab 04/09/22 [Rx] Follow up Appointment(s)/Referral(s): Jayro Guy MD [REFERRING] - 1 Week [facility] [NON-STAFF] - 1 Week Patric Granda DO [Primary Care Provider] - 04/15/22 2:00 pm (You will [facility] Patient Instructions/Handouts: Metformin (By mouth), Insulin Aspart, Recombi nant (By injection), Insulin Detemir (By injection), What is Insulin (DC), How to Give an Insulin Injection (DC), Nondiabetic Hyperglycemia (DC), Hemoglobin A1c (GEN), How to Check your Blood Sugar (DC) Activity/Diet/Wound Care/Special Instructions: [employer] for your glucometer supplies : Activity Limited until follow-up Follow-up with primary care provider this week Follow-up with endocrine Continue monitoring blood sugars before meals and at bedtime and keep a diary of all readings for primary follow-up Continue with strict consistent carbohydrate diabetic diet Continue with premeal insulins 3 times daily Continue sliding scale as needed in addition to the pre-meal and long acting NovoLog sliding scale 0-150 equals 0 units 151-200 equals 2 units 201-250 equals 4 units 251-300 equals 6 units 301-350 equals 8 units 351-400 equals 10 units Please notify provider if blood sugar is 400 or above Hold insulin if blood sugar is 120 or less contact your doctor Discharge Disposition: HOME SELF-CARE
== END 2022-04-09 13:39 | disposition home or self-care (01) ==
LOC: EC 14:59 → INTOOBSV 17:25 → 3SCARD 17:25 → 5NMEDONC 04-08 19:41 → UNDODISIN 04-09 13:39
PROVIDERS: ADMIT Internal Medicine; ATTEND Internal Medicine
DX: E11.00 Type 2 diabetes mellitus with hyperosmolarity without nonketotic hyperglycemic-hyperosmolar coma (NKHHC) (principal); I12.9 Hypertensive chronic kidney disease with stage 1 through stage 4 chronic kidney disease, or unspecified chronic kidney disease; N18.4 Chronic kidney disease, stage 4 (severe); E11.22 Type 2 diabetes mellitus with diabetic chronic kidney disease; E11.65 Type 2 diabetes mellitus with hyperglycemia; E66.01 Morbid (severe) obesity due to excess calories; Z68.42 Body mass index [BMI] 45.0-49.9, adult; E87.1 Hypo-osmolality and hyponatremia; E86.0 Dehydration; J44.9 Chronic obstructive pulmonary disease, unspecified; E83.52 Hypercalcemia; E87.5 Hyperkalemia; E78.5 Hyperlipidemia, unspecified; M79.7 Fibromyalgia; I48.91 Unspecified atrial fibrillation; M19.90 Unspecified osteoarthritis, unspecified site; M10.9 Gout, unspecified; G89.29 Other chronic pain; M51.36 Other intervertebral disc degeneration, lumbar region; F41.9 Anxiety disorder, unspecified; Z91.11 Patient's noncompliance with dietary regimen; F17.200 Nicotine dependence, unspecified, uncomplicated; Z90.2 Acquired absence of lung [part of]; Z79.51 Long term (current) use of inhaled steroids; Z79.891 Long term (current) use of opiate analgesic; Z79.1 Long term (current) use of non-steroidal anti-inflammatories (NSAID); Z79.899 Other long term (current) drug therapy; Z87.01 Personal history of pneumonia (recurrent); Z71.3 Dietary counseling and surveillance; Z98.1 Arthrodesis status; Z96.651 Presence of right artificial knee joint; Z96.641 Presence of right artificial hip joint; Z89.022 Acquired absence of left finger(s); Z89.021 Acquired absence of right finger(s); Z82.49 Family history of ischemic heart disease and other diseases of the circulatory system
CPT/HCPCS: 96361 ×3; 96365; 96366; 96375; 99291; 36415; 94640 ×4; 93005; 80051 ×2; 80053; 80048; 82565 ×2; 82803; 82009; 83605 ×2; 83690; 83735; 84100 ×2; 82947 ×2; 84520 ×2; 85025; 81003; 83036; 71046; G0378 ×6; J2405

== ENCOUNTER 2024-02-25 11:13 | Emergency (ER) | payer OTHER ==
[2024-02-25 11:23] VITALS: TEMP 97.4
--- NOTE | 2024-02-25 11:49 | ED ---
Skin/Abscess/FB HPI - General Source: patient, RN notes reviewed Mode of arrival: wheelchair Limitations: no limitations <Marisel Cuellar - Last Filed: 02/25/24 11:48> - General Source: RN notes reviewed <Leila Ramirez - Last Filed: 02/25/24 15:04> - General Chief complaint: Skin/Abscess/Foreign Body Stated complaint: L Leg Abscess Time Seen by Provider: 02/25/24 11:48 - History of Present Illness Initial comments: Quick Note: This is a 54-year-old male who presents to the emergency department for an abscess to his left thigh. States that this has been enlarging over the last 2 weeks. He has gotten abscesses several times in the past and is usually able to cut them open and let them drain on their own. However he tried to cut this one open and did not get anything out of it. This is also getting increasingly painful. Denies any fevers or chills. (Marisel Cuellar) 54-year-old male with history of diabetes presenting to the ER with chief complaint of abscess to left thigh. States this has been growing for the past 2 months and he has cut it open with a box knife and a razor blade several times on his own. States the pain has been worsening over the past day and he tried to cut it open and he did not get anything out. Denies fevers or chills. (Leila Ramirez) - Related Data Home Medications Medication Instructions Recorded Confirmed Albuterol Sulfate [Albuterol 2 puff INHALATION RT-TID 06/05/20 04/05/22 Sulfate Hfa] DULoxetine HCL [Cymbalta] 30 mg PO BID@0500,1900 06/05/20 04/05/22 Pregabalin [Lyrica] 200 mg PO TID@0500,1200,1900 06/05/20 04/05/22 oxyCODONE HCL/ACETAMINOPHEN 1 tab PO TID@0500,1200,1900 06/05/20 04/05/22 [Percocet 10-325 mg] Fluticasone/Umeclidin/Vilanter 1 puff INHALATION RT-HS@189904/05/22 04/05/22 [Trelegy Ellipta 100-62.5-25] HYDROcodone/APAP 10-325MG [[place] 1 tab PO BID@0500,1200 04/05/22 04/05/22 10-325] Losartan Potassium 100 mg PO DAILY@0500 04/05/22 04/05/22 Milnacipran HCl [Savella] 50 mg PO BID@0500,1900 04/05/22 04/05/22 Naloxone HCl [Narcan] 4 mg NASAL ONCE PRN 04/05/22 04/05/22 Naproxen [Naprosyn] 500 mg PO BID@0500,1900 04/05/22 04/05/22 Pramipexole [Mirapex] 0.5 mg PO HS@1900 04/05/22 04/05/22 amLODIPine [Norvasc] 5 mg PO DAILY@0500 04/05/22 04/05/22 tiZANidine [Zanaflex] 4 mg PO TID@0500,1200,1900 04/05/22 04/05/22 Previous Rx's Medication Instructions Recorded INSULIN ASPART (NovoLOG) [NovoLOG 0 unit SQ ACHS each 04/09/22 (formulary)] INSULIN ASPART (NovoLOG) [NovoLOG 20 unit SQ AC-TID 30 Days #8 each 04/09/22 (formulary)] Insulin Detemir (Levemir) [Levemir] 35 unit SQ BID 30 Days #10 each 04/09/22 metFORMIN HCL [Glucophage] 500 mg PO BID-W/MEALS 30 Days #60 04/09/22 tab clindamycin HCL 300 mg PO QID 7 Days #28 cap 02/25/24 Allergies Allergy/AdvReac Type Severity Reaction Status Date / Time No Known Allergies Allergy Verified 02/25/24 11:23 Review of Systems ROS Other: All systems not noted in ROS Statement are negative. <Marisel Cuellar - Last Filed: 02/25/24 11:48> ROS Other: All systems not noted in ROS Statement are negative. <Leila Ramirez - Last Filed: 02/25/24 15:04> ROS Statement: Those systems with pertinent positive or pertinent negative responses have been documented in the HPI. Past Medical History Past Medical History: Chest Pain / Angina, Fibromyalgia, Hyperlipidemia, Hypertension, Pneumonia, Respiratory Disorder Additional Past Medical History / Comment(s): Left lung pneumonia/empyema, gout, chronic fibromyalgia, chronic lower back pain, degenerative arthritis, history of degenerative disc disease involving the lumbar spine, hypertension, hyperlipidemia, atrial fibrillation as the patient went into atrial fibrillation during her hospitalization for a left lower lobe pneumonia back in October 2017 and subsequently he converted back to normal sinus. Echocardiogram done preoperatively showed a preserved LV function. He has chronic anxiety. History of Any Multi-Drug Resistant Organisms: None Reported Past Surgical History: Back Surgery, Joint Replacement, Orthopedic Surgery Additional Past Surgical History / Comment(s): rt hip replacement, rt knee repl acement, left knee surgery with metal, neck fusion, lower back surgery, traumatic amputation rt index finger, left index finger tip amputation from injury Past Anesthesia/Blood Transfusion Reactions: Blood Transfusion Reaction Additional Past Anesthesia/Blood Transfusion Reaction / Comment(s): pt states some limited neck movement due to previous surgery, " I got degenerative bone disease from a blood transfusion", "I woke up in the middle of knee surgery" Past Psychological History: No Psychological Hx Reported Smoking Status: Current every day smoker Past Alcohol Use History: None Reported Past Drug Use History: Marijuana - Past Family History Mother Family Medical History: No Reported History Additional Family Medical History / Comment(s): enlarged heart Father Family Medical History: No Reported History Additional Family Medical History / Comment(s): Father lived to be 101 yrs old. <Marisel Cuellar - Last Filed: 02/25/24 11:48> General Exam Limitations: no limitations <Marisel Cuellar - Last Filed: 02/25/24 11:48> General appearance: alert, in no apparent distress Head exam: Present: atraumatic, normocephalic, normal inspection Eye exam: Present: normal appearance, PERRL, EOMI. Absent: scleral icterus, conjunctival injection, periorbital swelling Respiratory exam: Present: normal lung sounds bilaterally. Absent: respiratory distress, wheezes, rales, rhonchi, stridor Cardiovascular Exam: Present: regular rate, normal rhythm, normal heart sounds. Absent: systolic murmur, diastolic murmur, rubs, gallop, clicks Extremities exam: Present: full ROM, normal capillary refill. Absent: pedal edema, joint swelling, calf tenderness Neurological exam: Present: alert, oriented X3, CN II-XII intact Skin exam: Present: warm, dry, intact, normal color, rash (Left posterior thigh: 3 inch x 3 inch area of erythema and tenderness with fluctuant center. There is no current drainage.) <Leila Ramirez - Last Filed: 02/25/24 15:04> - General Exam Comments Initial Comments: Visual Physical Exam Vital signs reviewed General: Well-appearing, nontoxic, no acute distress. Head: Normocephalic, atraumatic Eyes: PERRLA, EOMI ENT: Airway patent Chest: Nonlabored breathing Skin: No visual rash, normal skin tone Neuro: Alert and oriented 3 Musculoskeletal: No gross abnormalities (Marisel Cuellar) Course Vital Signs 02/25/24 02/25/24 11:18 14:33 Temperature 97.4 F L Pulse Rate 111 H 98 Respiratory 16 20 Rate Blood Pressure 114/74 107/69 O2 Sat by Pulse 97 97 Oximetry Procedures - Incision & Drainage Consent Obtained: verbal consent Indication: abscess Site: lower extremity Size (cm): 7 I&D Cleaning Method: Alcohol Wipe, Iodine Sterile Field Used?: Yes Scalpel Used: #11 Ultrasound used: No Needle Aspiration Performed?: No Irrigation Performed?: No I&D Drainage Obtained: Pus, Blood Insertion of drain: No Culture Obtained?: No Patient Tolerated Procedure: well, no complications <Leila Ramirez - Last Filed: 02/25/24 15:04> Medical Decision Making <Marisel Cuellar - Last Filed: 02/25/24 11:48> - Lab Data Result diagrams: 02/25/24 13:19 02/25/24 13:19 <Leila Ramirez - Last Filed: 02/25/24 15:04> - Medical Decision Making I performed the QuickNote portion of this chart. Signed Marisel Cuellar PA-C. (Marisel Cuellar) Was pt. sent in by a medical professional or institution ([employer], SWITCH OPERATOR, urgent care, hospital, or senior living...) When possible be specific @ -No Did you speak to anyone other than the patient for history (EMS, parent, family, police, friend...)? What history was obtained from this source @ -No Did you review nursing and triage notes (agree or disagree)? Why? @ -I reviewed and agree with nursing and triage notes Were old charts reviewed (outside hosp., previous admission, EMS record, old EKG, old radiological studies, urgent care reports/EKG's, senior living records)? Report findings @ -No old charts were reviewed Differential Diagnosis (chest pain, altered mental status, abdominal pain women, abdominal pain men, vaginal bleeding, weakness, fever, dyspnea, syncope, headache, dizziness, GI bleed, back pain, seizure, CVA, palpatations, mental health, musculoskeletal)? @ -Abscess, cellulitis, laceration, sepsis EKG interpreted by me (3pts min.). @ -None X-rays interpreted by me (1pt min.). @ -None done CT interpreted by me (1pt min.). @ -None done U/S interpreted by me (1pt. min.). @ -None done What testing was considered but not performed or refused? (CT, X-rays, U/S, labs)? Why? @ -None What meds were considered but not given or refused? Why? @ -None Did you discuss the management of the patient with other professionals (professionals i.e. , PA, SWITCH OPERATOR, lab, RT, psych nurse, social science professor, barbed wire machine operator, teacher, health officer, showcase maker)? Give summary @ -No Was smoking cessation discussed for >3mins.? @ -No Was critical care preformed (if so, how long)? @ -No Were there social determinants of health that impacted care today? How? (Ho melessness, low income, unemployed, alcoholism, drug addiction, transportation, low edu. Level, literacy, decrease access to med. care, long-term, rehab)? @ -No Was there de-escalation of care discussed even if they declined (Discuss DNR or withdrawal of care, Hospice)? DNR status @ -No What co-morbidities impacted this encounter? (DM, HTN, Smoking, COPD, CAD, Cancer, CVA, ARF, Chemo, Hep., AIDS, mental health diagnosis, sleep apnea, morbid obesity)? @ -Diabetes mellitus Was patient admitted / discharged? Hospital course, mention meds given and route, prescriptions, significant lab abnormalities, going to OR and other pertinent info. @ -Patient left AGAINST MEDICAL ADVICE. Patient was seen and evaluated for abscess of left thigh x 2 months. Patient has history of diabetes. Patient is afebrile, he is tachycardic at 111 bpm. Physical examination reveals 7 cm abscess with fluctuant center. Incision and drainage performed and a large amount of pus and blood was released. Upon reevaluation, heart rate is 90 bpm. Lab work is significant for white count of 17.7 with left shift, C-reactive protein is 18.1. Discussed with patient diagnosis of abscess with sepsis and recommended admission at this time for IV antibiotics, fluids, and monitoring. Risks of discharge at this time discussed with patient in detail, however patient verbalizes understanding of risks and chooses to leave AGAINST MEDICAL ADVICE at this time. Prescribed clindamycin and advised warm compresses 3 times daily. Advised to follow-up with PCP tomorrow for reevaluation. Strict return/alarm symptoms discussed with patient in detail and he shows understanding agrees with plan. Case discussed with my attending Dr. Oneal. Undiagnosed new problem with uncertain prognosis? @ -No Drug Therapy requiring intensive monitoring for toxicity (Heparin, Nitro, Insulin, Cardizem)? @ -No Were any procedures done? @ -No Diagnosis/symptom? @ -Abscess of left leg Acute, or Chronic, or Acute on Chronic? @ -Acute Uncomplicated (without systemic symptoms) or Complicated (systemic symptoms)? @ -Uncomplicated Side effects of treatment? @ -No Exacerbation, Progression, or Severe Exacerbation? @ -No Poses a threat to life or bodily function? How? (Chest pain, USA, AR, pneumonia, PE, COPD, DKA, ARF, appy, cholecystitis, CVA, Diverticulitis, Homicidal, Suicidal, threat to staff... and all critical care pts) @ -Yes (Leila Ramirez) - Lab Data Lab Results 02/25/24 02/25/24 02/25/24 Range/Units 13:19 13:19 13:19 WBC 17.7 H (3.8-10.6) k/uL RBC 4.89 (4.30-5.90) m/uL Hgb 15.5 (13.0-17.5) gm/dL Hct 46.7 (39.0-53.0) % MCV 95.5 (80.0-100.0) fL MCH 31.7 (25.0-35.0) pg MCHC 33.2 (31.0-37.0) g/dL RDW 14.6 (11.5-15.5) % Plt Count 311 (150-450) k/uL MPV 8.9 Neutrophils % 78 % Lymphocytes % 15 % Monocytes % 4 % Eosinophils % 2 % Basophils % 1 % Neutrophils # 13.9 H (1.3-7.7) k/uL Lymphocytes # 2.6 (1.0-4.8) k/uL Monocytes # 0.6 (0-1.0) k/uL Eosinophils # 0.3 (0-0.7) k/uL Basophils # 0.1 (0-0.2) k/uL Sodium 134 L (137-145) mmol/L Potassium 3.8 (3.5-5.1) mmol/L Chloride 103 (98-107) mmol/L Carbon Dioxide 21 L (22-30) mmol/L Anion Gap 10 mmol/L BUN 17 (9-20) mg/dL Creatinine 1.18 (0.66-1.25) mg/dL Est GFR (CKD-EPI)AfAm 80 (>60 ml/min/1.73 sqM) Est GFR (CKD-EPI)NonAf 70 (>60 ml/min/1.73 sqM) Glucose 153 H (74-99) mg/dL Plasma Lactic Acid Jase 1.5 (0.7-2.0) mmol/L Calcium 9.0 (8.4-10.2) mg/dL Total Bilirubin 1.1 (0.2-1.3) mg/dL AST 16 L (17-59) U/L ALT 13 (4-49) U/L Alkaline Phosphatase 124 (38-126) U/L C-Reactive Protein 18.1 H (<1.0) mg/dL Total Protein 6.8 (6.3-8.2) g/dL Albumin 4.0 (3.5-5.0) g/dL Disposition <Marisel Cuellar - Last Filed: 02/25/24 11:48> Is patient prescribed a controlled substance at d/c from ED?: No Time of Disposition: 14:58 <Leila Ramirez - Last Filed: 02/25/24 15:04> Clinical Impression: Abscess of left thigh Disposition: LEFT AGAINST MEDICAL ADVICE Instructions (If sedation given, give patient instructions): Abscess Incision and Drainage (ED) Additional Instructions: Please take clindamycin as prescribed. Use warm compresses 3 times daily. Fol low-up with PCP tomorrow for reevaluation. Please return to the Emergency Department if symptoms worsen or any other concerns. Prescriptions: clindamycin HCL 300 mg PO QID 7 Days #28 cap Referrals: Patric Granda DO [Primary Care Provider] - 1-2 days
[2024-02-25 13:33] LABS: Basophils # (A) 0.1 k/uL (0-0.2); Basophils % (A) 1 %; Eosinophils # (A) 0.3 k/uL (0-0.7); Eosinophils % (A) 2 %; HCT 46.7 % (39.0-53.0); HGB 15.5 gm/dL (13.0-17.5); Lymphocytes # (A) 2.6 k/uL (1.0-4.8); Lymphocytes % (A) 15 %; MCH 31.7 pg (25.0-35.0); MCHC 33.2 g/dL (31.0-37.0); MCV 95.5 fL (80.0-100.0); Mean Platelet Volume 8.9; Monocytes # (A) 0.6 k/uL (0-1.0); Monocytes % (A) 4 %; Neutrophils # (A) 13.9 k/uL (1.3-7.7); Neutrophils % (A) 78 %; Platelet Count 311 k/uL (150-450); RBC 4.89 m/uL (4.30-5.90); RDW 14.6 % (11.5-15.5); WBC 17.7 k/uL (3.8-10.6)
[2024-02-25] MEDS: HYDROmorphone 1 MG/ML 1 ML SYRINGE IM STA (13:37)
[2024-02-25 13:50] LABS: ALT 13 U/L (4-49); AST 16 U/L (17-59); African American GFR (CKD) 80 (>60 ml/min/1.73 sqM); Alkaline Phosphatase 124 U/L (38-126); Anion Gap 10 mmol/L; Blood Urea Nitrogen 17 mg/dL (9-20); Carbon Dioxide 21 mmol/L (22-30); Chloride 103 mmol/L (98-107); Glucose 153 mg/dL (74-99); Non-African American GFR(CKD) 70 (>60 ml/min/1.73 sqM); Potassium 3.8 mmol/L (3.5-5.1); Sodium 134 mmol/L (137-145); Total Bilirubin 1.1 mg/dL (0.2-1.3); Total Protein 6.8 g/dL (6.3-8.2)
[2024-02-25 14:01] LABS: C Reactive Protein 18.1 mg/dL (<1.0)
[2024-02-25 14:33] VITALS: BP 107/69; PULSE 98; RESP 20
== END 2024-02-25 15:10 | disposition left against medical advice (07) ==
LOC: EC 11:13
DX: L02.416 Cutaneous abscess of left lower limb (principal); F17.200 Nicotine dependence, unspecified, uncomplicated; F12.90 Cannabis use, unspecified, uncomplicated; Z53.29 Procedure and treatment not carried out because of patient's decision for other reasons
CPT/HCPCS: 99283; 10060; 96372; 36415; 80053; 83605; 85025; 86140; J1170

== ENCOUNTER 2024-04-27 14:09 | Emergency (ER) | payer OTHER ==
[2024-04-27] MEDS ORDERED: LIDOCAINE 1% INJ 10MG/ML (20 ML MDV) ONE (14:37)
== END 2024-04-27 16:20 | disposition home or self-care (01) ==
LOC: EC 14:09
DX: L02.416 Cutaneous abscess of left lower limb (principal)
CPT/HCPCS: 99282 ×2; 10060 ×2; J2001

== ENCOUNTER 2024-05-24 08:49 | Day surgery (SDC) | payer OTHER ==
[2024-05-18 16:09] VITALS: BMI 34.0
[~2024-05-24 08:49] MED LIST changes: -DEXAMETHASONE SOD PHOSPHATE 10 MG/ML 1 ML VIAL IV ONE; +LIDOCAINE 1% (10MG/ML) FOR IV START INTRADERMA PRN; -LIDOCAINE 1% 20 ML VIAL (10MG/ML) FOR IV START INTRADERMA PRN; -ONDANSETRON 4 MG/2 ML VIAL IVP ONE; +Pre Op ABX Message 1 EACH MISC MISCELLANE ONE; -SCOPOLAMINE 1.5MG/72HR PATCH TRANSDERM ONE
[2024-05-24] MEDS: IV FLUID CONTINUATION 1,000 ML IV ONE (09:12)
[2024-05-24] MEDS: LACTATED RINGERS 1,000 ML IV SCH (09:13)
[2024-05-24] MEDS: DEXAMETHASONE SOD PHOSPHATE 4 MG/ML 1 ML VIAL IV ONE (09:17)
[2024-05-24] MEDS: ONDANSETRON 4 MG/2 ML VIAL IVP ONE (09:17)
[2024-05-24] MEDS: ACETAMINOPHEN TAB 500 MG TAB PO PRN (09:17)
[2024-05-24] MEDS: HEPARIN SODIUM,PORCINE 5,000 UNIT/ML 1 ML VIAL SQ PRN (09:17)
[2024-05-24 09:26] VITALS: TEMP 97.5
[2024-05-24] MEDS: fentaNYL (PF) 50 MCG/ML 2 ML AMP IVP PRN (09:52)
[2024-05-24 09:56] LABS: Glucose,Whole Blood 129 mg/dL (70-110)
[2024-05-24] MEDS ORDERED: PROPOFOL 10 MG/ML 20 ML VIAL IV ONE (10:03)
[2024-05-24] MEDS ORDERED: KETAMINE HCL IN 0.9 % NACL 50 MG/5 ML SYRINGE ONE (10:03)
[2024-05-24] MEDS ORDERED: MIDAZOLAM 2 MG/2 ML VIAL ONE (10:03)
[2024-05-24] MEDS ORDERED: ceFAZolin 1 GM/50 ML BAG (PMX) ONE (10:03)
[2024-05-24] MEDS ORDERED: fentaNYL (PF) 50 MCG/ML 2 ML AMP ONE (10:03)
[2024-05-24] MEDS: LIDOCAINE 1%-EPI 1:100,000 20 ML VIAL SQ ONE ×2 (10:15)
[2024-05-24] MEDS: SODIUM CHLORIDE 0.9% 100 ML with ceFAZolin 3,000 MG IV ONE (10:15)
--- NOTE | 2024-05-24 10:55 | P.OP ---
Date of Procedure: 05/24/24 Preoperative Diagnosis: Infected skin lesion Postoperative Diagnosis: Infected seroma hematoma Procedure(s) Performed: Incision and drainage of seroma Anesthesia: MAC Surgeon: Cody Montano Estimated Blood Loss (ml): 5 Pathology: other (Wound culture) Condition: stable Disposition: PACU Description of Procedure: Patient is placed on the operative table in the supine position. He received ge IV sedation. The leg was prepped and draped you sterile fashion. The area was anesthetized 1% local Xylocaine. Using a 15 blade the skin was incised. There appeared to be a chronic seroma/hematoma. It was unclear if is infected. This was cultured. The cavity measured approximately 8 x 5 x 3 cm. T this was irrigated. I then packed with wet-to-dry Kerlix. Patient tolerated well. Sent to recovery room in stable condition.
[2024-05-24 12:36] VITALS: BP 110/70; PULSE 96; RESP 17
== END 2024-05-24 12:15 | disposition home health service (06) ==
LOC: OR 08:49
PROVIDERS: ATTEND Surgery
DX: L73.2 Hidradenitis suppurativa (principal)
CPT/HCPCS: 87070; 87075; 87077; 87186; 87205

== ENCOUNTER 2024-08-04 14:04 | Inpatient (IN) | payer OTHER ==
[2024-08-04 14:18] LABS: Glucose,Whole Blood 159 mg/dL (70-110)
--- NOTE | 2024-08-04 14:19 | ED ---
General Adult HPI - General Chief complaint: Altered Mental Status Stated complaint: AMS Time Seen by Provider: 08/04/24 14:11 Source: patient, EMS, RN notes reviewed, old records reviewed Mode of arrival: EMS Limitations: altered mental status - History of Present Illness Initial comments: Is a 54-year-old male who presents to the emergency department the past medical history significant for diabetes. According to EMS family was concerned that the patient seemed altered. Patient himself is alert and oriented x 4 currently and states the only reason he was having a hard time answering questions is that he is extremely tired. Patient states he worked around the house for the last 2 days quite a bit and today he was just tired and want to go back to bed. Patient states he is taking his medications even though EMS indicated family did not think he was taking his medications. Patient denies any fever chills. Patient states he had a slight cough recently. Patient denies chest pain palpitations difficulty breathing shortness of breath. Patient [place] any abdominal pain. Patient has nausea vomiting diarrhea. - Related Data Home Medications Medication Instructions Recorded Confirmed Albuterol Sulfate [Albuterol 2 puff INHALATION RT-Q6H 06/05/20 08/04/24 Sulfate Hfa] DULoxetine HCL [Cymbalta] 30 mg PO BID 06/05/20 08/04/24 Pregabalin [Lyrica] 200 mg PO TID 06/05/20 08/04/24 oxyCODONE HCL/ACETAMINOPHEN 1 tab PO QID PRN 06/05/20 08/04/24 [Percocet 10-325 mg] Fluticasone/Umeclidin/Vilanter 1 puff INHALATION RT-DAILY 04/05/22 08/04/24 [Trelegy Ellipta 100-62.5-25] Losartan Potassium 100 mg PO DAILY 04/05/22 08/04/24 Milnacipran HCl [Savella] 100 mg PO DAILY 04/05/22 08/04/24 Naproxen [Naprosyn] 500 mg PO BID 04/05/22 08/04/24 tiZANidine [Zanaflex] 6 mg PO TID PRN 04/05/22 08/04/24 Amitriptyline HCl [Elavil] 50 - 100 mg PO HS 02/25/24 08/04/24 Atorvastatin [Lipitor] 20 mg PO DAILY 02/25/24 08/04/24 Dapagliflozin Propanediol [Farxiga] 5 mg PO DAILY 02/25/24 08/04/24 INSULIN ASPART (NovoLOG) [NovoLOG 5 unit SQ TID-W/MEALS 02/25/24 08/04/24 (formulary)] Insulin Detemir (Levemir) [Levemir] 20 unit SQ BID 02/25/24 08/04/24 Loratadine [Claritin] 10 mg PO DAILY 02/25/24 08/04/24 Pramipexole Di-HCl [Mirapex] 0.75 mg PO HS 02/25/24 08/04/24 oxyCODONE ER [OxyCONTIN] 10 mg PO Q12HR 02/25/24 08/04/24 traZODone HCL 150 mg PO HS 08/04/24 08/04/24 Allergies Allergy/AdvReac Type Severity Reaction Status Date / Time No Known Allergies Allergy Verified 08/04/24 15:56 Review of Systems ROS Statement: Those systems with pertinent positive or pertinent negative responses have been documented in the HPI. ROS Other: All systems not noted in ROS Statement are negative. Past Medical History Past Medical History: Chest Pain / Angina, Diabetes Mellitus, Fibromyalgia, Hyperlipidemia, Hypertension, Pneumonia, Respiratory Disorder Additional Past Medical History / Comment(s): LT OUTER THIGH WOUND-STILL DRAINING WITH PUS AND BLOOD. Left lung pneumonia/empyema, gout, chronic fibromy algia, chronic lower back pain, degenerative arthritis, history of degenerative disc disease involving the lumbar spine, hypertension, hyperlipidemia, atrial fibrillation as the patient went into atrial fibrillation during her hospitalization for a left lower lobe pneumonia back in October 2017 and subsequently he converted back to normal sinus. Echocardiogram done preoperatively showed a preserved LV function. He has chronic anxiety. NEUROPATHY History of Any Multi-Drug Resistant Organisms: None Reported Past Surgical History: Back Surgery, Joint Replacement, Orthopedic Surgery Additional Past Surgical History / Comment(s): rt hip replacement, rt knee replacement, left knee surgery with metal, neck fusion, lower back surgery, traumatic amputation rt index finger, left index finger tip amputation from injury. I & D LT THIGH X 6, LUNG SURGERY, COLONOSCOPY Past Anesthesia/Blood Transfusion Reactions: Blood Transfusion Reaction Additional Past Anesthesia/Blood Transfusion Reaction / Comment(s): pt states some limited neck movement due to previous surgery, " I got degenerative bone disease from a blood transfusion", "I woke up in the middle of knee surgery" Past Psychological History: No Psychological Hx Reported Smoking Status: Current every day smoker Past Alcohol Use History: Daily Past Drug Use History: None Reported - Past Family History Mother Family Medical History: No Reported History Additional Family Medical History / Comment(s): enlarged heart Father Family Medical History: No Reported History Additional Family Medical History / Comment(s): Father lived to be 101 yrs old. General Exam - General Exam Comments Initial Comments: GENERAL: Patient is well-developed and well-nourished. Patient is nontoxic and well- hydrated and is in no acute distress. Patient is alert and oriented x 3 he is very tired and falls asleep easily ENT: Neck is soft and supple. No significant lymphadenopathy is noted. Oropharynx is clear. Moist mucous membranes. Neck has full range of motion without eliciting any pain. EYES: The sclera were anicteric and conjunctiva were pink and moist. Extraocular movements were intact and pupils were equal round and reactive to light. Eyelids were unremarkable. PULMONARY: Unlabored respirations. Good breath sounds bilaterally. No audible rales rhonchi or wheezing was noted. CARDIOVASCULAR: There is a regular rate and rhythm without any murmurs gallops or rubs. ABDOMEN: Soft and nontender with normal bowel sounds. SKIN: Skin is clear with no lesions or rashes and otherwise unremarkable. NEUROLOGIC: Patient is alert and oriented x3. Cranial nerves II through XII are grossly intact. Motor and sensory are also intact. Normal speech, volume and content. Symmetrical smile. MUSCULOSKELETAL: Normal extremities with adequate strength and full range of motion. 1+ edema bilaterally LYMPHATICS: No significant lymphadenopathy is noted PSYCHIATRIC: Normal psychiatric evaluation. Limitations: altered mental status Course Vital Signs 08/04/24 08/04/24 08/04/24 14:05 16:00 18:33 Temperature 98.6 F Pulse Rate 96 99 94 Respiratory 24 20 20 Rate Blood Pressure 98/48 103/78 124/76 O2 Sat by Pulse 86 L 93 L 95 Oximetry 08/04/24 19:32 Temperature 98.2 F Pulse Rate 103 H Respiratory 23 Rate Blood Pressure 119/85 O2 Sat by Pulse 95 Oximetry Medical Decision Making - Medical Decision Making EKG is interpreted by myself read EKG shows a sinus rhythm with occasional PAC at a rate of 94 bpm [place] 149 QRS is 98 QT interval 376 QTc is 427. Patient's EKG shows no ST segment elevation or depression. Was pt. sent in by a medical professional or institution ([facility], DEPARTMENTAL BUYER, urgent care, hospital, or snf...) When possible be specific @ -No Did you speak to anyone other than the patient for history (EMS, parent, family, police, friend...)? What history was obtained from this source @ -No Did you review nursing and triage notes (agree or disagree)? Why? @ -I reviewed and agree with nursing and triage notes Were old charts reviewed (outside hosp., previous admission, EMS record, old EKG, old radiological studies, urgent care reports/EKG's, snf records)? Report findings @ -No old charts were reviewed Differential Diagnosis? @ -Differential Altered Mental Status: Hypoglycemia, DKA, hypercapnia, ETOH, overdose, CO poisoning, trauma, myxedema coma, HTN encephalopathy, infection, encephalitis, psychosis, intercranial hemorrhage, hepatic encephalopathy, meningitis, CVA, this is not meant to be an all-inclusive list EKG interpreted by me (3pts min.). @ -As above X-rays interpreted by me (1pt min.). @ -X-ray of the chest shows mild pulmonary congestion CT interpreted by me (1pt min.). @ -CT of the brain shows no acute abnormality U/S interpreted by me (1pt. min.). @ -None done What testing was considered but not performed or refused? (CT, X-rays, U/S, labs)? Why? @ -None What meds were considered but not given or refused? Why? @ -None Did you discuss the management of the patient with other professionals (professionals i.e. [employer], DEPARTMENTAL BUYER, lab, RT, psych nurse, outreach and education social worker, quality process lead, teacher, nuclear medicine officer, assistant case manager)? Give summary @ -[facility] Was smoking cessation discussed for >3mins.? @ -No Was critical care preformed (if so, how long)? @ - 35 minutes Were there social determinants of health that impacted care today? How? (Homelessness, low income, unemployed, alcoholism, drug addiction, transportation, low edu. Level, literacy, decrease access to med. care, [facility], rehab)? @ -No Was there de-escalation of care discussed even if they declined (Discuss DNR or withdrawal of care, Hospice)? DNR status @ -No What co-morbidities impacted this encounter? (DM, HTN, Smoking, COPD, CAD, Cancer, CVA, ARF, Chemo, Hep., AIDS, mental health diagnosis, sleep apnea, morbid obesity)? @ -None Was patient admitted / discharged? Hospital course, mention meds given and route, prescriptions, significant lab abnormalities, going to OR and other pertinent info. @ -Patient's kidney function showed acute renal failure. Patient also has some pulmonary edema patient was given Lasix in the emergency department. [facility] Undiagnosed new problem with uncertain prognosis? @ -No Drug Therapy requiring intensive monitoring for toxicity (Heparin, Nitro, Insulin, Cardizem)? @ -No Were any procedures done? @ -No Diagnosis/symptom? @ -Acute renal failure Acute, or Chronic, or Acute on Chronic? @ -Acute Uncomplicated (without systemic symptoms) or Complicated (systemic symptoms)? @ -Comp Side effects of treatment? @ -No Exacerbation, Progression, or Severe Exacerbation? @ -No Poses a threat to life or bodily function? How? (Chest pain, USA, PR, pneumonia, PE, COPD, DKA, ARF, appy, cholecystitis, CVA, Diverticulitis, Homicidal, Suicidal, threat to staff... and all critical care pts) @ -Yes this can lead to electrolyte abnormalities arrhythmias and Diagnosis/symptom? @ -Pulmonary edema Acute, or Chronic, or Acute on Chronic? @ -Acute Uncomplicated (without systemic symptoms) or Complicated (systemic symptoms)? @ -Complicated Side effects of treatment? @ -None Exacerbation, Progression, or Severe Exacerbation] @ -No Poses a threat to life or bodily function? @ -Yes this can lead to hypoxia and endorgan dysfunction - Lab Data Result diagrams: 08/04/24 14:46 08/04/24 14:46 Lab Results 08/04/24 08/04/24 08/04/24 Range/Units 14:17 14:46 14:46 WBC 14.5 H (3.8-10.6) k/uL RBC 4.83 (4.30-5.90) m/uL Hgb 15.5 (13.0-17.5) gm/dL Hct 46.7 (39.0-53.0) % MCV 96.6 (80.0-100.0) fL MCH 32.1 (25.0-35.0) pg MCHC 33.3 (31.0-37.0) g/dL RDW 13.9 (11.5-15.5) % Plt Count 258 (150-450) k/uL MPV 8.4 Neutrophils % 80 % Lymphocytes % 13 % Monocytes % 5 % Eosinophils % 2 % Basophils % 0 % Neutrophils # 11.5 H (1.3-7.7) k/uL Lymphocytes # 1.8 (1.0-4.8) k/uL Monocytes # 0.7 (0-1.0) k/uL Eosinophils # 0.3 (0-0.7) k/uL Basophils # 0.1 (0-0.2) k/uL PT 10.1 (10.0-12.5) sec INR 0.9 (<1.2) APTT 26.7 (22.0-30.0) sec Sodium (137-145) mmol/L Potassium (3.5-5.1) mmol/L Chloride (98-107) mmol/L Carbon Dioxide (22-30) mmol/L Anion Gap mmol/L BUN (9-20) mg/dL Creatinine (0.66-1.25) mg/dL Est GFR (CKD-EPI)AfAm (>60 ml/min/1.73 sqM) Est GFR (CKD-EPI)NonAf (>60 ml/min/1.73 sqM) Glucose (74-99) mg/dL POC Glucose (mg/dL) 159 H (70-110) mg/dL POC Glu Mold Parter ID Nico Collazo Calcium (8.4-10.2) mg/dL Total Bilirubin (0.2-1.3) mg/dL AST (17-59) U/L ALT (4-49) U/L Alkaline Phosphatase (38-126) U/L Ammonia (<30) umol/L Troponin I (0.000-0.034) ng/mL Total Protein (6.3-8.2) g/dL Albumin (3.5-5.0) g/dL TSH (0.465-4.680) mIU/L Urine Color Urine Appearance (Clear) Urine pH (5.0-8.0) Ur Specific [place] (1.001-1.035) Urine Protein (Negative) Urine Glucose (UA) (Negative) Urine Ketones (Negative) Urine Blood (Negative) Urine Nitrite (Negative) Urine Bilirubin (Negative) Urine Urobilinogen (<2.0) mg/dL Ur Leukocyte Esterase (Negative) Urine RBC (0-5) /hpf Urine WBC (0-5) /hpf Ur Squamous Epith Cells (0-4) /hpf Urine Mucus (None) /hpf Urine Opiates Screen (NotDetected) Ur Oxycodone Screen (NotDetected) Urine Methadone Screen (NotDetected) Ur Barbiturates Screen (NotDetected) U Tricyclic Antidepress (NotDetected) Ur Phencyclidine Scrn (NotDetected) Ur Amphetamines Screen (NotDetected) U Methamphetamines Scrn (NotDetected) U Benzodiazepines Scrn (NotDetected) Urine Cocaine Screen (NotDetected) U Marijuana (THC) Screen (NotDetected) 08/04/24 08/04/24 08/04/24 Range/Units 14:46 14:46 14:46 WBC (3.8-10.6) k/uL RBC (4.30-5.90) m/uL Hgb (13.0-17.5) gm/dL Hct (39.0-53.0) % MCV (80.0-100.0) fL MCH (25.0-35.0) pg MCHC (31.0-37.0) g/dL RDW (11.5-15.5) % Plt Count (150-450) k/uL MPV Neutrophils % % Lymphocytes % % Monocytes % % Eosinophils % % Basophils % % Neutrophils # (1.3-7.7) k/uL Lymphocytes # (1.0-4.8) k/uL Monocytes # (0-1.0) k/uL Eosinophils # (0-0.7) k/uL Basophils # (0-0.2) k/uL PT (10.0-12.5) sec INR (<1.2) APTT (22.0-30.0) sec Sodium 135 L (137-145) mmol/L Potassium 3.7 (3.5-5.1) mmol/L Chloride 97 L (98-107) mmol/L Carbon Dioxide 28 (22-30) mmol/L Anion Gap 10 mmol/L BUN 46 H (9-20) mg/dL Creatinine 4.22 H (0.66-1.25) mg/dL Est GFR (CKD-EPI)AfAm 17 (>60 ml/min/1.73 sqM) Est GFR (CKD-EPI)NonAf 15 (>60 ml/min/1.73 sqM) Glucose 133 H (74-99) mg/dL POC Glucose (mg/dL) (70-110) mg/dL POC Glu Mold Parter ID Calcium 9.1 (8.4-10.2) mg/dL Total Bilirubin 0.7 (0.2-1.3) mg/dL AST 46 (17-59) U/L ALT 23 (4-49) U/L Alkaline Phosphatase 102 (38-126) U/L Ammonia 29 (<30) umol/L Troponin I 0.015 (0.000-0.034) ng/mL Total Protein 7.2 (6.3-8.2) g/dL Albumin 4.3 (3.5-5.0) g/dL TSH 0.812 (0.465-4.680) mIU/L Urine Color Urine Appearance (Clear) Urine pH (5.0-8.0) Ur Specific [place] (1.001-1.035) Urine Protein (Negative) Urine Glucose (UA) (Negative) Urine Ketones (Negative) Urine Blood (Negative) Urine Nitrite (Negative) Urine Bilirubin (Negative) Urine Urobilinogen (<2.0) mg/dL Ur Leukocyte Esterase (Negative) Urine RBC (0-5) /hpf Urine WBC (0-5) /hpf Ur Squamous Epith Cells (0-4) /hpf Urine Mucus (None) /hpf Urine Opiates Screen (NotDetected) Ur Oxycodone Screen (NotDetected) Urine Methadone Screen (NotDetected) Ur Barbiturates Screen (NotDetected) U Tricyclic Antidepress (NotDetected) Ur Phencyclidine Scrn (NotDetected) Ur Amphetamines Screen (NotDetected) U Methamphetamines Scrn (NotDetected) U Benzodiazepines Scrn (NotDetected) Urine Cocaine Screen (NotDetected) U Marijuana (THC) Screen (NotDetected) 08/04/24 08/04/24 Range/Units 18:27 18:27 WBC (3.8-10.6) k/uL RBC (4.30-5.90) m/uL Hgb (13.0-17.5) gm/dL Hct (39.0-53.0) % MCV (80.0-100.0) fL MCH (25.0-35.0) pg MCHC (31.0-37.0) g/dL RDW (11.5-15.5) % Plt Count (150-450) k/uL MPV Neutrophils % % Lymphocytes % % Monocytes % % Eosinophils % % Basophils % % Neutrophils # (1.3-7.7) k/uL Lymphocytes # (1.0-4.8) k/uL Monocytes # (0-1.0) k/uL Eosinophils # (0-0.7) k/uL Basophils # (0-0.2) k/uL PT (10.0-12.5) sec INR (<1.2) APTT (22.0-30.0) sec Sodium (137-145) mmol/L Potassium (3.5-5.1) mmol/L Chloride (98-107) mmol/L Carbon Dioxide (22-30) mmol/L Anion Gap mmol/L BUN (9-20) mg/dL Creatinine (0.66-1.25) mg/dL Est GFR (CKD-EPI)AfAm (>60 ml/min/1.73 sqM) Est GFR (CKD-EPI)NonAf (>60 ml/min/1.73 sqM) Glucose (74-99) mg/dL POC Glucose (mg/dL) (70-110) mg/dL POC Glu Mold Parter ID Calcium (8.4-10.2) mg/dL Total Bilirubin (0.2-1.3) mg/dL AST (17-59) U/L ALT (4-49) U/L Alkaline Phosphatase (38-126) U/L Ammonia (<30) umol/L Troponin I (0.000-0.034) ng/mL Total Protein (6.3-8.2) g/dL Albumin (3.5-5.0) g/dL TSH (0.465-4.680) mIU/L Urine Color Yellow Urine Appearance Clear (Clear) Urine pH 5.0 (5.0-8.0) Ur Specific [place] 1.020 (1.001-1.035) Urine Protein Trace H (Negative) Urine Glucose (UA) Negative (Negative) Urine Ketones Negative (Negative) Urine Blood Trace H (Negative) Urine Nitrite Negative (Negative) Urine Bilirubin Negative (Negative) Urine Urobilinogen <2.0 (<2.0) mg/dL Ur Leukocyte Esterase Negative (Negative) Urine RBC 1 (0-5) /hpf Urine WBC 1 (0-5) /hpf Ur Squamous Epith Cells <1 (0-4) /hpf Urine Mucus Rare H (None) /hpf Urine Opiates Screen Not Detected (NotDetected) Ur Oxycodone Screen Detected H (NotDetected) Urine Methadone Screen Not Detected (NotDetected) Ur Barbiturates Screen Not Detected (NotDetected) U Tricyclic Antidepress Detected H (NotDetected) Ur Phencyclidine Scrn Not Detected (NotDetected) Ur Amphetamines Screen Not Detected (NotDetected) U Methamphetamines Scrn Not Detected (NotDetected) U Benzodiazepines Scrn Not Detected (NotDetected) Urine Cocaine Screen Not Detected (NotDetected) U Marijuana (THC) Screen Detected H (NotDetected) Disposition Clinical Impression: Acute renal failure, Pulmonary edema Disposition: ADMITTED IP TO THIS [facility] Referrals: Patric Granda DO [Primary Care Provider] - 1-2 days Time of Disposition: 20:10
[2024-08-04] MEDS: SODIUM CHLORIDE 0.9% 1,000 ML IV ONE (14:33)
[2024-08-04 15:01] LABS: Basophils # (A) 0.1 k/uL (0-0.2); Basophils % (A) 0 %; Eosinophils # (A) 0.3 k/uL (0-0.7); Eosinophils % (A) 2 %; HCT 46.7 % (39.0-53.0); HGB 15.5 gm/dL (13.0-17.5); Lymphocytes # (A) 1.8 k/uL (1.0-4.8); Lymphocytes % (A) 13 %; MCH 32.1 pg (25.0-35.0); MCHC 33.3 g/dL (31.0-37.0); MCV 96.6 fL (80.0-100.0); Mean Platelet Volume 8.4; Monocytes # (A) 0.7 k/uL (0-1.0); Monocytes % (A) 5 %; Neutrophils # (A) 11.5 k/uL (1.3-7.7); Neutrophils % (A) 80 %; Platelet Count 258 k/uL (150-450); RBC 4.83 m/uL (4.30-5.90); RDW 13.9 % (11.5-15.5); WBC 14.5 k/uL (3.8-10.6)
--- NOTE | 2024-08-04 15:24 | XR ---
EXAMINATION TYPE: XR chest 2V DATE OF EXAM: 08/04/2024 3:14 PM COMPARISON: Chest radiographs from 04/05/2022 CLINICAL INDICATION: Male, 54 years old with history of altered mental status; TECHNIQUE: XR chest 2V Frontal and lateral views of the chest. FINDINGS: Lungs/Pleura: There is no evidence of pleural effusion, focal consolidation, or pneumothorax. Pulmonary vascularity: Unremarkable. Heart/mediastinum: Cardiomediastinal silhouette is unremarkable. Musculoskeletal: No acute osseous pathology. Other findings: None IMPRESSION: Cardiomegaly and mild pulmonary vascular congestion. Correlate with BNP for congestive heart failure. [facility], , 08/04/2024 3:21 PM
[2024-08-04 15:28] LABS: ALT 23 U/L (4-49); African American GFR (CKD) 17 (>60 ml/min/1.73 sqM); Albumin 4.3 g/dL (3.5-5.0); Anion Gap 10 mmol/L; Blood Urea Nitrogen 46 mg/dL (9-20); Calcium 9.1 mg/dL (8.4-10.2); Carbon Dioxide 28 mmol/L (22-30); Chloride 97 mmol/L (98-107); Glucose 133 mg/dL (74-99); Non-African American GFR(CKD) 15 (>60 ml/min/1.73 sqM); Sodium 135 mmol/L (137-145); Total Bilirubin 0.7 mg/dL (0.2-1.3); Total Protein 7.2 g/dL (6.3-8.2)
[2024-08-04 15:30] LABS: INR 0.9 (<1.2); Partial Thromboplastin Time 26.7 sec (22.0-30.0); Prothrombin Time 10.1 sec (10.0-12.5)
[2024-08-04 15:45] LABS: AST 46 U/L (17-59); Alkaline Phosphatase 102 U/L (38-126); Potassium 3.7 mmol/L (3.5-5.1)
--- NOTE | 2024-08-04 16:16 | CT ---
EXAMINATION TYPE: CT brain wo con DATE OF EXAM: 08/04/2024 COMPARISON: 10/18/2017 CLINICAL INDICATION: Male, 54 years old with history of Altered mental status; PHH, ams CT DLP: 1213.4 mGycm Automated exposure control for dose reduction was used. Findings: The ventricles, basal cisterns and sulci over the convexities are within normal limits and there is n o mass effect or shift of midline structures. No abnormal density is seen throughout the brain parenchyma and there is no acute intra or extra-axia l hemorrhage. The posterior fossa including the brainstem, fourth ventricle and cerebellar pontine angles appear no rmal. Intraorbital contents appear normal and symmetric. Visualized paranasal sinuses and mastoid air cells are well aerated. The calvarium is intact. IMPRESSION: No significant abnormality seen. There is no acute bleed or mass effect. [facility], , 08/04/2024 4:14 PM
[2024-08-04 18:49] LABS: Amphetamine Screen,Urine Not Detected (NotDetected); Barbiturate Screen,Urine Not Detected (NotDetected); Benzodiazepines Screen,Urine Not Detected (NotDetected); Cocaine Screen,Urine Not Detected (NotDetected); Methadone Screen, Urine Not Detected (NotDetected); Opiate Screen,Urine Not Detected (NotDetected); Oxycodone Screen, Urine Detected (NotDetected); Phencyclidine Screen,Urine Not Detected (NotDetected); Tricyclic Antidepressant,Urine Detected (NotDetected); Urn Cannabinoid Scrn Detected (NotDetected)
[2024-08-04 19:26] LABS: Appearance,Urine Clear (Clear); Bilirubin,Urine Negative (Negative); Blood,Urine Trace (Negative); Color,Urine Yellow; Glucose,Urine (UA) Negative (Negative); Ketones,Urine Negative (Negative); Leukocyte Esterase,Urine Negative (Negative); Mucus,Urine Rare /hpf; Nitrite,Urine Negative (Negative); Protein,Urine Trace (Negative); RBC,Urine 1 /hpf (0-5); Squamous Epithelial Cell,Urine <1 /hpf (0-4); Urobilinogen,Urine <2.0 mg/dL (<2.0); WBC,Urine 1 /hpf (0-5)
[2024-08-04] MEDS: FUROSEMIDE 10 MG/ML 2 ML VIAL IV ONE (19:54)
[2024-08-04] MEDS: oxyCODONE ER 10 MG TAB.ER.12H PO SCH (22:25)
[2024-08-05] MEDS: NITROGLYCERIN OINT 1 INCH/GM PACKET TOPICAL SCH (00:09)
[2024-08-05] MEDS: FUROSEMIDE 10 MG/ML 2 ML VIAL IV SCH (03:39)
[2024-08-05 07:10] LABS: Basophils # (A) 0.1 k/uL (0-0.2); Basophils % (A) 0 %; Eosinophils # (A) 0.2 k/uL (0-0.7); Eosinophils % (A) 1 %; HCT 43.3 % (39.0-53.0); HGB 14.4 gm/dL (13.0-17.5); Lymphocytes # (A) 1.3 k/uL (1.0-4.8); Lymphocytes % (A) 6 %; MCH 31.5 pg (25.0-35.0); MCHC 33.3 g/dL (31.0-37.0); MCV 94.6 fL (80.0-100.0); Monocytes # (A) 0.7 k/uL (0-1.0); Monocytes % (A) 3 %; Neutrophils # (A) 19.1 k/uL (1.3-7.7); Neutrophils % (A) 89 %; Platelet Count 247 k/uL (150-450); RBC 4.57 m/uL (4.30-5.90); RDW 14.4 % (11.5-15.5); WBC 21.6 k/uL (3.8-10.6)
[2024-08-05 07:13] LABS: VBG PH 7.36 (7.31-7.41)
[2024-08-05 07:24] LABS: African American GFR (CKD) 21 (>60 ml/min/1.73 sqM); Anion Gap 12 mmol/L; Blood Urea Nitrogen 50 mg/dL (9-20); Calcium 8.6 mg/dL (8.4-10.2); Carbon Dioxide 25 mmol/L (22-30); Chloride 99 mmol/L (98-107); Glucose 135 mg/dL (74-99); Non-African American GFR(CKD) 19 (>60 ml/min/1.73 sqM); Potassium 3.5 mmol/L (3.5-5.1); Sodium 136 mmol/L (137-145)
[2024-08-05 07:34] LABS: NT-Pro-B-Type Natriuretic Pept 122 pg/mL
--- NOTE | 2024-08-05 10:16 | P.HPIM ---
History of Present Illness This is a pleasant 54 years old male with past medical history of multiple medical problems Patient states he does not remember why he is in the hospital As per documented staff patient presents because of altered mental status. Patient this morning he is stating his main concern is his chronic low back pain and he is asking for his Percocet which he takes at home otherwise he will leave AMA. Patient referring to his oxycodone ER 10 mg Twice daily, as well as Percocet 10 mg every 6 hours, I explained for the patient the risk and benefits of this medication including but not limited to the risk of respiratory depression and/or , Patient however denies specific symptoms, no abdominal pain vomiting diarrhea, no dysuria or urgency. No chest pain dyspnea or coughing. No headache dizziness weakness or numbness Patient states that he fell 2 days ago when he slipped on the rainy weather Also states that he smokes 3 packs/day and he was counseled to quit and he agrees and wants the nicotine patch but denies alcohol. Patient states that he uses marijuana sometimes Patient is afebrile, he is mildly tachycardic and tachypneic. He was saturating 95% on 2 L oxygen Labs reviewed WBC 14,020 1000 but he has chronic leukocytosis INR 0.9 Troponin is -0.015 Urine analysis is negative TSH 0.8 Ammonia level is negative at 29 Urine drug screen is positive for oxycodone, TCA and marijuana EKG showing sinus rhythm with tachycardia at [address]-T changes CT of the brain is negative Chest x-ray showing cardiomegaly with mild pulmonary vascular congestion No recent echocardiogram, ejection fraction from 2018 was 55 to 60% Review of Systems Review of systems CONSTITUTIONAL: No fever, no malaise, no fatigue. HEENT: No recent visual problems or hearing problems. Denied any sore throat. CARDIOVASCULAR: No orthopnea, PND, no palpitations, no syncope. PULMONARY: No shortness of breath, no cough, no hemoptysis. GASTROINTESTINAL: No diarrhea, no nausea, no vomiting, no abdominal pain. Normoactive bowel sounds. NEUROLOGICAL: No headaches, no weakness, no numbness. HEMATOLOGICAL: Denies any bleeding or petechiae. GENITOURINARY: Denies any burning micturition, frequency, or urgency. MUSCULOSKELETAL/RHEUMATOLOGICAL: Denies any joint pain, swelling, or any muscle pain. ENDOCRINE: Denies any polyuria or polydipsia. Past Medical History Past Medical History: Chest Pain / Angina, Diabetes Mellitus, Fibromyalgia, Hyperlipidemia, Hypertension, Pneumonia, Respiratory Disorder Additional Past Medical History / Comment(s): LT OUTER THIGH WOUND-STILL DRAINING WITH PUS AND BLOOD. Left lung pneumonia/empyema, gout, chronic fibromyalgia, chronic lower back pain, degenerative arthritis, history of d egenerative disc disease involving the lumbar spine, hypertension, hyperlipidemia, atrial fibrillation as the patient went into atrial fibrillation during her hospitalization for a left lower lobe pneumonia back in October 2017 and subsequently he converted back to normal sinus. Echocardiogram done preoperatively showed a preserved LV function. He has chronic anxiety. NEUROPATHY History of Any Multi-Drug Resistant Organisms: None Reported Past Surgical History: Back Surgery, Joint Replacement, Orthopedic Surgery Additional Past Surgical History / Comment(s): rt hip replacement, rt knee replacement, left knee surgery with metal, neck fusion, lower back surgery, traumatic amputation rt index finger, left index finger tip amputation from injury. I & D LT THIGH X 6, LUNG SURGERY, COLONOSCOPY Past Anesthesia/Blood Transfusion Reactions: Blood Transfusion Reaction Additional Past Anesthesia/Blood Transfusion Reaction / Comment(s): pt states some limited neck movement due to previous surgery, " I got degenerative bone disease from a blood transfusion", "I woke up in the middle of knee surgery" Past Psychological History: No Psychological Hx Reported Smoking Status: Current every day smoker Past Alcohol Use History: Daily Past Drug Use History: None Reported - Past Family History Mother Family Medical History: No Reported History Additional Family Medical History / Comment(s): enlarged heart Father Family Medical History: No Reported History Additional Family Medical History / Comment(s): Father lived to be 101 yrs old. Medications and Allergies Home Medications Medication Instructions Recorded Confirmed Type Albuterol Sulfate [Albuterol 2 puff INHALATION RT-Q6H 06/05/20 08/04/24 History Sulfate Hfa] DULoxetine HCL [Cymbalta] 30 mg PO BID 06/05/20 08/04/24 History Pregabalin [Lyrica] 200 mg PO TID 06/05/20 08/04/24 History oxyCODONE HCL/ACETAMINOPHEN 1 tab PO QID PRN 06/05/20 08/04/24 History [Percocet 10-325 mg] Fluticasone/Umeclidin/Vilanter 1 puff INHALATION RT-DAILY 04/05/22 08/04/24 History [Trelegy Ellipta 100-62.5-25] Losartan Potassium 100 mg PO DAILY 04/05/22 08/04/24 History Milnacipran HCl [Savella] 100 mg PO DAILY 04/05/22 08/04/24 History Naproxen [Naprosyn] 500 mg PO BID 04/05/22 08/04/24 History tiZANidine [Zanaflex] 6 mg PO TID PRN 04/05/22 08/04/24 History Amitriptyline HCl [Elavil] 50 - 100 mg PO HS 02/25/24 08/04/24 History Atorvastatin [Lipitor] 20 mg PO DAILY 02/25/24 08/04/24 History Dapagliflozin Propanediol [Farxiga] 5 mg PO DAILY 02/25/24 08/04/24 History INSULIN ASPART (NovoLOG) [NovoLOG 5 unit SQ TID-W/MEALS 02/25/24 08/04/24 History (formulary)] Insulin Detemir (Levemir) [Levemir] 20 unit SQ BID 02/25/24 08/04/24 History Loratadine [Claritin] 10 mg PO DAILY 02/25/24 08/04/24 History Pramipexole Di-HCl [Mirapex] 0.75 mg PO HS 02/25/24 08/04/24 History oxyCODONE ER [OxyCONTIN] 10 mg PO Q12HR 02/25/24 08/04/24 History traZODone HCL 150 mg PO HS 08/04/24 08/04/24 History Allergies Allergy/AdvReac Type Severity Reaction Status Date / Time No Known Allergies Allergy Verified 08/04/24 15:56 Physical Exam Vitals: Vital Signs Temp Pulse Resp BP Pulse Ox 08/05/24 06:19 97.7 F 96 22 104/55 95 08/05/24 05:11 95 16 107/69 95 08/05/24 03:37 98 22 104/58 95 08/05/24 02:47 97.7 F 99 23 110/64 95 08/05/24 01:30 104 H 17 110/74 94 L 08/05/24 00:30 110 H 16 94/62 92 L 08/05/24 00:03 110 H 23 94/62 95 11/23/24 00:00 111 H 19 97/65 94 L 08/04/24 23:16 114 H 24 90/72 94 L 08/04/24 23:00 113 H 16 119/93 94 L 08/04/24 22:27 98.7 F 113 H 20 99/63 95 08/04/24 22:00 110 H 20 122/96 95 08/04/24 20:30 109 H 26 H 104/53 97 08/04/24 19:32 98.2 F 103 H 23 119/85 95 08/04/24 18:33 94 20 124/76 95 08/04/24 16:00 99 20 103/78 93 L 08/04/24 14:05 98.6 F 96 24 98/48 86 L Intake and Output 08/04/24 08/05/24 08/05/24 22:59 06:59 14:59 Output Total 1270 Balance -1270 Output: Urine 1270 Uretheral (Gamez) 450 GENERAL: The patient is alert and oriented x3, not in any acute distress. Well developed, well nourished. Obese HEENT: Pupils are round and equally reacting to light. EOMI. No scleral icterus. No conjunctival pallor. Normocephalic, atraumatic. No pharyngeal erythema. No thyromegaly. CARDIOVASCULAR: S1 and S2 present. No murmurs, rubs, or gallops. PULMONARY: Chest is clear to auscultation, no wheezing , no crackles. ABDOMEN: Soft, nontender, nondistended, normoactive bowel sounds. No palpable organomegaly. MUSCULOSKELETAL: No joint swelling or deformity. EXTREMITIES: No cyanosis, clubbing, or pedal edema. NEUROLOGICAL: Gross neurological examination did not reveal any focal deficits. SKIN: No rashes. no petechiae. Results CBC & Chem 7: 08/05/24 06:58 08/05/24 06:58 Labs: Abnormal Lab Results - Last 24 Hours (Table) 08/04/24 08/04/24 08/04/24 Range/Units 14:17 14:46 14:46 WBC 14.5 H (3.8-10.6) k/uL Neutrophils # 11.5 H (1.3-7.7) k/uL Sodium 135 L (137-145) mmol/L Chloride 97 L (98-107) mmol/L BUN 46 H (9-20) mg/dL Creatinine 4.22 H (0.66-1.25) mg/dL Glucose 133 H (74-99) mg/dL POC Glucose (mg/dL) 159 H (70-110) mg/dL Urine Protein (Negative) Urine Blood (Negative) Urine Mucus (None) /hpf Ur Oxycodone Screen (NotDetected) U Tricyclic Antidepress (NotDetected) U Marijuana (THC) Screen (NotDetected) 08/04/24 08/04/24 08/05/24 Range/Units 18:27 18:27 06:58 WBC 21.6 H (3.8-10.6) k/uL Neutrophils # 19.1 H (1.3-7.7) k/uL Sodium (137-145) mmol/L Chloride (98-107) mmol/L BUN (9-20) mg/dL Creatinine (0.66-1.25) mg/dL Glucose (74-99) mg/dL POC Glucose (mg/dL) (70-110) mg/dL Urine Protein Trace H (Negative) Urine Blood Trace H (Negative) Urine Mucus Rare H (None) /hpf Ur Oxycodone Screen Detected H (NotDetected) U Tricyclic Antidepress Detected H (NotDetected) U Marijuana (THC) Screen Detected H (NotDetected) 08/05/24 Range/Units 06:58 WBC (3.8-10.6) k/uL Neutrophils # (1.3-7.7) k/uL Sodium 136 L (137-145) mmol/L Chloride (98-107) mmol/L BUN 50 H (9-20) mg/dL Creatinine 3.52 H (0.66-1.25) mg/dL Glucose 135 H (74-99) mg/dL POC Glucose (mg/dL) (70-110) mg/dL Urine Protein (Negative) Urine Blood (Negative) Urine Mucus (None) /hpf Ur Oxycodone Screen (NotDetected) U Tricyclic Antidepress (NotDetected) U Marijuana (THC) Screen (NotDetected) Assessment and Plan Assessment: -Altered mental status, present on admission. Most likely metabolic/toxic encephalopathy -Acute kidney injury on chronic kidney disease stage 2 -Acute CHF with mild pulmonary congestion. Old echocardiogram showing EF 55 to 60% -COPD; not in exacerbation -Recent history of left thigh abscess -Hypertension -Chronic back pain -Chronic leukocytosis -Obesity with BMI of 38 Plan: Oxycodone ER already been ordered I talked to the patient about resuming the rest of the pain medication, he was adamant to resume it although the risk of respiratory depression and/or are explained to him, however he agrees to start smaller dose of Percocet 5 mg instead of 10 with close monitoring Continue with IV Lasix Continue with Gamez catheter Hold losartan and naproxen Nephrology team consult Cardiology team consult Labs and medication were reviewed.. Continue same treatment. Continue with symptomatic treatment. Resume home medication. Monitor labs and vitals. DVT and GI prophylaxis. Further recommendations as per clinical course of the patient DVT prophylaxis: Subcutaneous heparin GI Prophylaxis: Pepcid PT/OT: Pending Prognosis is guarded
[2024-08-05] MEDS: oxyCODONE-APAP 5-325MG 1 EACH TAB PO PRN (10:40)
[2024-08-05] MEDS: NICOTINE 21MG/24HR PATCH TRANSDERM SCH (10:45)
[2024-08-05] MEDS: oxyCODONE-APAP 5-325MG 1 EACH TAB PO STA (11:01)
[2024-08-05 11:54] LABS: Glucose,Whole Blood 129 mg/dL (70-110)
[2024-08-05] MEDS: INSULIN ASPART (NovoLOG) 100 UNIT/ML VIAL SQ SCH (12:00)
--- NOTE | 2024-08-05 13:44 | P.NPCON ---
History of Present Illness - Reason for Consult acute renal failure - History of Present Illness patient is a 54-year-old male with history of hypertension, type 2 diabetes and chronic back pain. He is admitted to the hospital with altered mentation. He is maintained on narcotic pain medications at home. History of fall about 2 days prior to admission. No previous history of kidney diseases. Serum creatinine was 4.2 on admission and improved to 3.5 today. Previous creatinine 1.1 on 02/25/2024 Blood pressure was low with systolic in the 90s. Patient was maintained on angiotensin receptor blockers as well as NSAIDs prior to admission. Currently on hold. Past Medical History Past Medical History: Chest Pain / Angina, Diabetes Mellitus, Fibromyalgia, Hype rlipidemia, Hypertension, Pneumonia, Respiratory Disorder Additional Past Medical History / Comment(s): LT OUTER THIGH WOUND-STILL DRAINING WITH PUS AND BLOOD. Left lung pneumonia/empyema, gout, chronic fibromyalgia, chronic lower back pain, degenerative arthritis, history of degenerative disc disease involving the lumbar spine, hypertension, hyperlipidemia, atrial fibrillation as the patient went into atrial fibrillation during her hospitalization for a left lower lobe pneumonia back in October 2017 and subsequently he converted back to normal sinus. Echocardiogram done preoperatively showed a preserved LV function. He has chronic anxiety. NEUROPATHY History of Any Multi-Drug Resistant Organisms: None Reported Past Surgical History: Back Surgery, Joint Replacement, Orthopedic Surgery Additional Past Surgical History / Comment(s): rt hip replacement, rt knee replacement, left knee surgery with metal, neck fusion, lower back surgery, traumatic amputation rt index finger, left index finger tip amputation from injury. I & D LT THIGH X 6, LUNG SURGERY, COLONOSCOPY Past Anesthesia/Blood Transfusion Reactions: Blood Transfusion Reaction Additional Past Anesthesia/Blood Transfusion Reaction / Comment(s): pt states some limited neck movement due to previous surgery, " I got degenerative bone disease from a blood transfusion", "I woke up in the middle of knee surgery" Past Psychological History: No Psychological Hx Reported Smoking Status: Current every day smoker Past Alcohol Use History: Daily Past Drug Use History: None Reported - Past Family History Mother Family Medical History: No Reported History Additional Family Medical History / Comment(s): enlarged heart Father Family Medical History: No Reported History Additional Family Medical History / Comment(s): Father lived to be 101 yrs old. Medications and Allergies Home Medications Medication Instructions Recorded Confirmed Type Albuterol Sulfate [Albuterol 2 puff INHALATION RT-Q6H 06/05/20 08/04/24 History Sulfate Hfa] DULoxetine HCL [Cymbalta] 30 mg PO BID 06/05/20 08/04/24 History Pregabalin [Lyrica] 200 mg PO TID 06/05/20 08/04/24 History oxyCODONE HCL/ACETAMINOPHEN 1 tab PO QID PRN 06/05/20 08/04/24 History [Percocet 10-325 mg] Fluticasone/Umeclidin/Vilanter 1 puff INHALATION RT-DAILY 04/05/22 08/04/24 History [Trelegy Ellipta 100-62.5-25] Losartan Potassium 100 mg PO DAILY 04/05/22 08/04/24 History Milnacipran HCl [Savella] 100 mg PO DAILY 04/05/22 08/04/24 History Naproxen [Naprosyn] 500 mg PO BID 04/05/22 08/04/24 History tiZANidine [Zanaflex] 6 mg PO TID PRN 04/05/22 08/04/24 History Amitriptyline HCl [Elavil] 50 - 100 mg PO HS 02/25/24 08/04/24 History Atorvastatin [Lipitor] 20 mg PO DAILY 02/25/24 08/04/24 History Dapagliflozin Propanediol [Farxiga] 5 mg PO DAILY 02/25/24 08/04/24 History INSULIN ASPART (NovoLOG) [NovoLOG 5 unit SQ TID-W/MEALS 02/25/24 08/04/24 History (formulary)] Insulin Detemir (Levemir) [Levemir] 20 unit SQ BID 02/25/24 08/04/24 History Loratadine [Claritin] 10 mg PO DAILY 02/25/24 08/04/24 History Pramipexole Di-HCl [Mirapex] 0.75 mg PO HS 02/25/24 08/04/24 History oxyCODONE ER [OxyCONTIN] 10 mg PO Q12HR 02/25/24 08/04/24 History traZODone HCL 150 mg PO HS 08/04/24 08/04/24 History Allergies Allergy/AdvReac Type Severity Reaction Status Date / Time No Known Allergies Allergy Verified 08/04/24 15:56 Physical Exam Vitals: Vital Signs Temp Pulse Resp BP Pulse Ox 08/05/24 11:09 105 H 20 120/78 96 08/05/24 06:19 97.7 F 96 22 104/55 95 08/05/24 05:11 95 16 107/69 95 08/05/24 03:37 98 22 104/58 95 08/05/24 02:47 97.7 F 99 23 110/64 95 08/05/24 01:30 104 H 17 110/74 94 L 08/05/24 00:30 110 H 16 94/62 92 L 08/05/24 00:03 110 H 23 94/62 95 08/05/24 00:00 111 H 19 97/65 94 L 08/04/24 23:16 114 H 24 90/72 94 L 08/04/24 23:00 113 H 16 119/93 94 L 08/04/24 22:27 98.7 F 113 H 20 99/63 95 08/04/24 22:00 110 H 20 122/96 95 08/04/24 20:30 109 H 26 H 104/53 97 08/04/24 19:32 98.2 F 103 H 23 119/85 95 08/04/24 18:33 94 20 124/76 95 08/04/24 16:00 99 20 103/78 93 L 08/04/24 14:05 98.6 F 96 24 98/48 86 L Intake and Output 08/04/24 08/05/24 08/05/24 22:59 06:59 14:59 Output Total 1270 Balance -1270 Output: Urine 1270 Uretheral (Gamez) 450 patient is awake, comfortable, in no acute distress. Examination of the heart S1 and S2 Examination of the lungs bilateral breath sounds are heard Abdomen is soft nontender Examination of lower extremities shows 1+ edema [employer] exam grossly intact Results - Lab Results Most recent lab results Calcium 8.6 mg/dL (8.4-10.2) 08/05/24 06:58 08/05/24 06:58 08/05/24 06:58 Assessment and Plan Assessment: 1. Acute kidney injury ATN, nonoliguric secondary to hypotension, NSAIDs in the setting of use of angiotensin receptor blockers. Currently being diuresed for volume overload. UA is benign. Currently with indwelling Gamez catheter however patient is requesting for it to be discontinued. 450 ML of urine obtained on initial Gamez catheter insertion 2. Mental status changes possibly related to pain meds. Drug screen was pos itive for opiates, tricyclic antidepressants and marijuana 3. Volume overload 4. Hypertension with blood pressure currently low Plan: continue with IV Lasix Repeat labs in a.m. Continue to hold losartan. Patient is advised to discontinue use of NSAIDs. Check ultrasound of the kidneys. May try to discontinue Gamez catheter with monitoring of post void residuals Thank you for the consultation. We will continue to follow the patient with you during his hospitalization
[2024-08-05 14:31] LABS: Magnesium 1.8 mg/dL (1.6-2.3)
[2024-08-05] MEDS: DULoxetine HCL 30 MG CAPSULE.DR PO SCH (14:47)
[2024-08-05] MEDS: carvediloL 3.125 MG TAB PO SCH (14:47)
[2024-08-05] MEDS: ASPIRIN 81 MG PO SCH (14:47)
[2024-08-05] MEDS: FUROSEMIDE 10 MG/ML 4 ML VIAL IV SCH (14:47)
[2024-08-05] MEDS: oxyCODONE-APAP 10-325MG 1 EACH TAB PO PRN (14:47)
[2024-08-05] MEDS: ALBUTEROL NEBULIZED 2.5 MG/3 ML INHALATION SCH (15:02)
--- NOTE | 2024-08-05 15:14 | US ---
EXAMINATION TYPE: US kidneys/renal and bladder DATE OF EXAM: 08/05/2024 COMPARISON: 2017 CLINICAL INDICATION: Male, 54 years old with history of jaylen; TECHNIQUE: Grayscale imaging of the bilateral kidneys and urinary bladder: FINDINGS: EXAM MEASUREMENTS: Right Kidney: 15.4 x 6.1 x 6.2 cm Left Kidney: 12.6 x 7.2 x 6.5 cm Right Kidney: Hypertrophic Left Kidney: No hydronephrosis or masses seen Bladder: wnl Bilateral Jets seen: No There is no evidence for hydronephrosis at this point in time. No nephrolithiasis is seen. No karen s are identified. The urinary bladder is anechoic. IMPRESSION: 1. No evidence of acute obstructive uropathy. 2. Prominent right kidney measuring 15.4 cm in length. [facility], , 08/05/2024 3:11 PM
[2024-08-05 17:39] LABS: Glucose,Whole Blood 178 mg/dL (70-110)
[2024-08-05 20:09] LABS: Glucose,Whole Blood 175 mg/dL (70-110)
[2024-08-05] MEDS: AMITRIPTYLINE HCL 50 MG TAB PO SCH (20:31)
[2024-08-05] MEDS: ATORVASTATIN 40 MG TAB PO SCH (20:31)
[2024-08-05] MEDS: INSULIN DETEMIR (LEVEMIR) 100 UNIT/ML SYR SQ SCH (20:32)
[2024-08-05 23:03] LABS: Chol/HDL Ratio 3.11 Ratio; LDL Cholesterol,Calculated 42.5 mg/dL (0.0-131.0)
[2024-08-06] MEDS ORDERED: ALBUTEROL NEBULIZED 2.5 MG/3 ML INHALATION PRN (00:10)
[2024-08-06 06:22] LABS: Glucose,Whole Blood 136 mg/dL (70-110)
--- NOTE | 2024-08-06 08:04 | CA ---
Transthoracic Echo Report Name: Javi Costa Age: 54 Gender: M : 1970 Exam Date: 08/05/2024 16:48 Exam Location: [facility] Ht (in): 74 Wt (lb): 296 Ordering Physician: Madhu Feng MD ([id number]) Attending/Referring Phys: [employer] Sales Representative Violeta Mcelroy RDCS Procedure CPT: Indications: chf Cardiac Hx: Technical Quality: Very technically difficult study Contrast 1: Definity Total Dose (mL): 2 Contrast 2: Total Dose (mL): MEASUREMENTS (Male / Female) Normal Values 2D ECHO LV Diastolic Diameter PLAX 5.5 cm 4.2 - 5.9 / 3.9 - 5.3 cm LV Systolic Diameter PLAX 3.6 cm IVS Diastolic Thickness 1.1 cm 0.6 - 1.0 / 0.6 - 0.9 cm LVPW Diastolic Thickness 1.0 cm 0.6 - 1.0 / 0.6 - 0.9 cm LV Relative Wall Thickness 0.4 RV Internal Dim ED PLAX 5.9 cm LVOT Diameter 2.0 cm M-MODE LV Diastolic Diameter MM 8.3 cm 4.2 - 5.9 / 3.9 - 5.3 cm LV Systolic Diameter MM 6.3 cm LV Cardiac Index MM Teich 6873.5 cm???/min???m??? IVS Diastolic Thickness MM 1.2 cm 0.6 - 1.0 / 0.6 - 0.9 cm LVPW Diastolic Thickness MM 1.5 cm 0.6 - 1.0 / 0.6 - 0.9 cm LV Relative Wall Thickness MM 0.3 0.24 - 0.42 / 0.22 - 0.42 LV Mass Index MM 236.2 g/m??? 49 - 115 / 43 - 95 g/m??? DOPPLER AV Peak Velocity 159.9 cm/s AV Peak Gradient 10.2 mmHg AV Mean Velocity 118.9 cm/s AV Mean Gradient 6.2 mmHg AV Velocity Time Integral 26.3 cm LVOT Peak Velocity 165.9 cm/s LVOT Peak Gradient 11.0 mmHg LVOT Velocity Time Integral 26.2 cm LVOT Stroke Volume 79.9 cm??? LVOT Stroke Volume Index 31.1 ml/m??? LVOT Cardiac Index 3140.1 cm???/min???m??? AV Area Cont Eq vti 3.0 cm??? AV Area Cont Eq pk 3.2 cm??? MV Area PHT 2.6 cm??? Mitral E Point Velocity 66.1 cm/s Mitral A Point Velocity 105.7 cm/s Mitral E to A Ratio 0.6 MV Deceleration Time 296.9 ms FINDINGS Left Ventricle Mildly increased left ventricular wall thickness. Left ventricular cavity size normal. Left ventricular ejection fraction is estimated at 45-50 %. Abnormal left ventricular diastolic filling pattern. Right Ventricle Right ventricular dilatation. Right Atrium Right atrium not well visualized. Left Atrium Left atrium not well visualized. Mitral Valve Mitral valve not well visualized. No mitral stenosis. Mild mitral regurgitation. Aortic Valve Aortic valve not well visualized. No aortic stenosis. No aortic regurgitation. Tricuspid Valve Tricuspid valve not well visualized. Pulmonic Valve No pulmonic stenosis. No pulmonic regurgitation. Pericardium No pericardial effusion. Aorta Normal size aortic root and proximal ascending aorta. CONCLUSIONS Very technically difficult study. LVEF 45 to 50% RV appears dilated Valvular function could not be assessed with good sensitivity/specificity No pericardial effusion. Previewed by: Dr Madhu Feng (Electronically Signed) Final Date: 06 August 2024 08:03
[2024-08-06] MEDS: DAPAGLIFLOZIN PROPANEDIOL 5 MG TABLET PO SCH (08:26)
[2024-08-06 08:28] LABS: Basophils % (A) 0 %; Eosinophils # (A) 0.2 k/uL (0-0.7); Eosinophils % (A) 1 %; HCT 41.8 % (39.0-53.0); Lymphocytes # (A) 1.2 k/uL (1.0-4.8); Lymphocytes % (A) 8 %; MCH 31.9 pg (25.0-35.0); MCHC 33.4 g/dL (31.0-37.0); MCV 95.7 fL (80.0-100.0); Monocytes # (A) 0.6 k/uL (0-1.0); Monocytes % (A) 4 %; Neutrophils # (A) 13.1 k/uL (1.3-7.7); Neutrophils % (A) 86 %; Platelet Count 243 k/uL (150-450); RBC 4.37 m/uL (4.30-5.90); WBC 15.3 k/uL (3.8-10.6)
[2024-08-06 08:39] LABS: African American GFR (CKD) 65 (>60 ml/min/1.73 sqM); Anion Gap 11 mmol/L; Blood Urea Nitrogen 41 mg/dL (9-20); Calcium 8.7 mg/dL (8.4-10.2); Carbon Dioxide 28 mmol/L (22-30); Chloride 98 mmol/L (98-107); Glucose 164 mg/dL (74-99); Non-African American GFR(CKD) 56 (>60 ml/min/1.73 sqM); Potassium 3.2 mmol/L (3.5-5.1); Sodium 137 mmol/L (137-145)
[2024-08-06] MEDS ORDERED: ATORVASTATIN 20 MG TAB PO SCH (09:00)
[2024-08-06] MEDS ORDERED: Potassium Replacement Protocol 1 EACH MISC MISCELLANE PRN (09:04)
--- NOTE | 2024-08-06 10:45 | P.PN ---
Subjective patient is seen for follow-up for acute kidney injury. Complaining of back pain and shoulder pain along with constipation. MiraLAX has been ordered. Renal function has improved significantly. Serum creatinine decrease to 1.4 today. Patient reports good urine output. He is maintained on IV Lasix. Objective - Vital Signs Vital signs: Vital Signs Temp 99.2 F 08/06/24 03:19 Pulse 106 H 08/06/24 07:53 Resp 18 08/06/24 03:19 BP 116/70 08/06/24 03:19 Pulse Ox 93 L 08/06/24 03:19 FiO2 Intake & Output 08/05/24 08/06/24 08/06/24 18:59 06:59 18:59 Intake Total 120 540 Output Total 900 475 Balance 120 -360 -475 Weight 134.263 kg 152.3 kg Intake: Oral 120 540 Output: Urine 900 475 Other: Voiding Method Urinal # Voids 2 - Exam patient is awake, comfortable, in no acute distress. 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 - Labs CBC & Chem 7: 08/06/24 07:48 08/06/24 07:48 Labs: Abnormal Lab Results - Last 24 Hours (Table) 08/05/24 08/05/24 08/05/24 Range/Units 06:58 06:58 11:52 WBC (3.8-10.6) k/uL Neutrophils # (1.3-7.7) k/uL Potassium (3.5-5.1) mmol/L BUN (9-20) mg/dL Creatinine (0.66-1.25) mg/dL Glucose (74-99) mg/dL POC Glucose (mg/dL) 129 H (70-110) mg/dL Hemoglobin A1c 6.5 H (<=6.0) % Triglycerides 164.00 H (0.00-149.00) mg/dL HDL Cholesterol 35.70 L (40.00-60.00) mg/dL 08/05/24 08/05/24 08/06/24 Range/Units 17:36 20:08 06:21 WBC (3.8-10.6) k/uL Neutrophils # (1.3-7.7) k/uL Potassium (3.5-5.1) mmol/L BUN (9-20) mg/dL Creatinine (0.66-1.25) mg/dL Glucose (74-99) mg/dL POC Glucose (mg/dL) 178 H 175 H 136 H (70-110) mg/dL Hemoglobin A1c (<=6.0) % Triglycerides (0.00-149.00) mg/dL HDL Cholesterol (40.00-60.00) mg/dL 08/06/24 08/06/24 Range/Units 07:48 07:48 WBC 15.3 H (3.8-10.6) k/uL Neutrophils # 13.1 H (1.3-7.7) k/uL Potassium 3.2 L (3.5-5.1) mmol/L BUN 41 H (9-20) mg/dL Creatinine 1.42 H (0.66-1.25) mg/dL Glucose 164 H (74-99) mg/dL POC Glucose (mg/dL) (70-110) mg/dL Hemoglobin A1c (<=6.0) % Triglycerides (0.00-149.00) mg/dL HDL Cholesterol (40.00-60.00) mg/dL Assessment and Plan Assessment: 1. Acute kidney injury ATN, nonoliguric secondary to hypotension, NSAIDs in the setting of use of angiotensin receptor blockers. Currently being diuresed for volume overload. UA is benign. Gamez catheter was removed yesterday. 2. Mental status changes possibly related to pain meds. Drug screen was positive for opiates, tricyclic antidepressants and marijuana 3. Volume overload 4. Hypertension with blood pressure currently low Plan: change Lasix to oral Replace potassium continue to avoid NSAIDs post discharge. Hold losartan for nowas blood pressure remains on the lower side
[2024-08-06 11:22] LABS: Glucose,Whole Blood 134 mg/dL (70-110)
--- NOTE | 2024-08-06 11:38 | XR ---
EXAMINATION TYPE: XR lumbar spine 2 or 3V DATE OF EXAM: 08/06/2024 11:29 AM COMPARISON: None. CLINICAL INDICATION: Male, 54 years old with history of low back pain , fell 3 days earlier, TECHNIQUE: 3 views of the lumbar spine submitted. FINDINGS: There are 5 lumbar type vertebral bodies identified. The lumbar spine shows satisfactory alignment without evidence of acute fracture or dislocation. Vertebral body heights are within normal limits. Vacuum disc L5-S1 with endplate sclerosis. Ventral and dorsal spondylosis is seen. Remaining levels are within normal limits. The overlying soft tissue appears unremarkable. IMPRESSION: No acute fracture or dislocation is seen in the lumbar spine.ICD 10 NO FRACTURE, INITIAL EVALUATION [facility], , 08/06/2024 11:36 AM
[2024-08-06] MEDS: POTASSIUM CHLORIDE ER 20 MEQ TAB.ER PO STA (11:49)
[2024-08-06] MEDS: oxyCODONE-APAP 10-325MG 1 EACH TAB PO PRN (11:49)
[2024-08-06] MEDS: NYSTATIN 100,000 UNIT/GM POWD 15 GM TOPICAL SCH (11:58)
[2024-08-06 12:58] LABS: Glucose,Whole Blood 169 mg/dL (70-110)
--- NOTE | 2024-08-06 12:58 | P.PN ---
Subjective This is a pleasant 54 years old male with past medical history of multiple medical problems Patient states he does not remember why he is in the hospital As per documented staff patient presents because of altered mental status. Patient this morning he is stating his main concern is his chronic low back pain and he is asking for his Percocet which he takes at home otherwise he will leave AMA. Patient referring to his oxycodone ER 10 mg Twice daily, as well as Percocet 10 mg every 6 hours, I explained for the patient the risk and benefits of this medication including but not limited to the risk of respiratory depression and/or , Patient however denies specific symptoms, no abdominal pain vomiting diarrhea, no dysuria or urgency. No chest pain dyspnea or coughing. No headache dizziness weakness or numbness Patient states that he fell 2 days ago when he slipped on the rainy weather Also states that he smokes 3 packs/day and he was counseled to quit and he agrees and wants the nicotine patch but denies alcohol. Patient states that he uses marijuana sometimes Patient is afebrile, he is mildly tachycardic and tachypneic. He was saturating 95% on 2 L oxygen Labs reviewed WBC 14,020 1000 but he has chronic leukocytosis INR 0.9 Troponin is -0.015 Urine analysis is negative TSH 0.8 Ammonia level is negative at 29 Urine drug screen is positive for oxycodone, TCA and marijuana EKG showing sinus rhythm with tachycardia at [address]-T changes CT of the brain is negative Chest x-ray showing cardiomegaly with mild pulmonary vascular congestion No recent echocardiogram, ejection fraction from 2018 was 55 to 60% 08/06 Patient is awake alert He is complaining from severe low back pain. He is adamant to restart his Percocet 10-325 mg every 6 hours as needed on the top of 10 mg of OxyContin twice daily which are his home medication. Risks including but not limited to the respiratory depression and/or I explained to him and he still wants his pain medication Patient states that he was taking this pain medication for his fibromyalgia however about 3 days ago he was moving the chair in his kitchen when he slipped and fell on his face and the back, states he was rolling when he fell and since then he is having severe low back pain. He states pain was not that severe before he falls however patient denies new weakness or tingling or numbness in his lower extremities. He could walk to the restroom. He is planning to get a shower today with the help of his staff Other than that his creatinine improved significantly down to 1.4, his IV Lasix twice daily switched to oral dose Losartan remains on hold. Naproxen was one of his home medication listed however patient denies taking this medication, however he was counseled against using NSAIDs like Motrin, ibuprofen or Naprosyn Echocardiogram showing ejection fraction of 45 to 50% Renal ultrasound showing no obstructive uropathy Lumbar x-ray ordered today showing no fracture or dislocation and good alignment Labs showing improving leukocytosis at 15.3 but this is a chronic problem. Creatinine significantly improved down to 1.4 Active Medications Generic Name Dose Route Start Last Admin Trade Name Freq PRN Reason Stop Dose Admin Albuterol Sulfate 2.5 mg 08/05/24 14:00 08/06/24 07:39 Albuterol Nebulized 2.5 Mg/3 Ml INHALATION 2.5 mg RT-Q6H UZIEL Administration Albuterol Sulfate 2.5 mg 08/06/24 00:10 Albuterol Nebulized 2.5 Mg/3 Ml INHALATION RT-QID PRN Shortness Of Breath Or Wheezing Amitriptyline HCl 50 mg 08/05/24 21:00 08/05/24 20:31 Amitriptyline Hcl 50 Mg Tab PO 50 mg HS UZIEL Administration Aspirin 81 mg 08/05/24 12:30 08/06/24 08:25 Aspirin 81 Mg PO 81 mg DAILY UZIEL Administration Atorvastatin Calcium 40 mg 08/05/24 21:00 08/05/24 20:31 Atorvastatin 40 Mg Tab PO 40 mg HS UZIEL Administration Carvedilol 3.125 mg 08/05/24 12:30 08/06/24 06:35 Carvedilol 3.125 Mg Tab PO 3.125 mg BID-W/MEALS UZIEL Administration Dapagliflozin 5 mg 08/06/24 09:00 08/06/24 08:26 Dapagliflozin Propanediol 5 Mg Tablet PO 5 mg DAILY UZIEL Administration Duloxetine HCl 30 mg 08/05/24 21:00 08/06/24 08:25 Duloxetine Hcl 30 Mg Capsule.Dr PO 30 mg BID UZIEL Administration Furosemide 40 mg 08/06/24 16:00 Furosemide 40 Mg Tab PO BID@0900,1600 UZIEL Guaifenesin 600 mg 08/06/24 21:00 Guaifenesin 600 Mg Tablet.Er PO Q12HR [facility] Insulin Aspart 5 unit 08/05/24 12:30 08/06/24 11:49 Insulin Aspart (Novolog) 100 Unit/Ml Vial SQ 5 unit TID-W/MEALS UZIEL Administration Insulin Detemir 20 unit 08/05/24 21:00 08/06/24 06:35 Insulin Detemir (Levemir) 100 Unit/Ml Syr SQ 20 unit BID@0700,2100 [facility] Administration Miscellaneous Information 1 each 08/06/24 09:04 Potassium Replacement Protocol 1 Each Misc MISCELLANE DAILY PRN Per Protocol Protocol Nicotine 1 patch 08/05/24 10:30 08/06/24 08:25 Nicotine 21mg/24hr Patch TRANSDERM 1 patch DAILY [facility] Administration Nystatin 1 applic 08/06/24 11:30 08/06/24 11:58 Nystatin 100,000 Unit/Gm Powd 15 Gm TOPICAL 1 applic BID [facility] Administration Protocol Oxycodone HCl 10 mg 08/04/24 21:15 08/06/24 08:25 Oxycodone Er 10 Mg Tab.Er.12h PO 10 mg Q12HR UZIEL Administration Protocol Oxycodone/Acetaminophen 1 each 08/06/24 09:05 08/06/24 11:49 Oxycodone-Apap 10-325mg 1 Each Tab PO 1 each Q6HR PRN Administration Pain Objective - Vital Signs Vital signs: Vital Signs Temp 99 F 08/06/24 08:10 Pulse 98 08/06/24 08:10 Resp 18 08/06/24 08:10 BP 143/66 08/06/24 08:10 Pulse Ox 96 08/06/24 08:10 FiO2 Intake & Output 08/05/24 08/06/24 08/06/24 18:59 06:59 18:59 Intake Total 120 540 240 Output Total 900 475 Balance 120 -360 -235 Weight 134.263 kg 152.3 kg Intake: Oral 120 540 240 Output: Urine 900 475 Other: Voiding Method Urinal Urinal # Voids 2 - Labs CBC & Chem 7: 08/06/24 07:48 08/06/24 07:48 Labs: Abnormal Lab Results - Last 24 Hours (Table) 08/05/24 08/05/24 08/05/24 Range/Units 06:58 06:58 17:36 WBC (3.8-10.6) k/uL Neutrophils # (1.3-7.7) k/uL Potassium (3.5-5.1) mmol/L BUN (9-20) mg/dL Creatinine (0.66-1.25) mg/dL Glucose (74-99) mg/dL POC Glucose (mg/dL) 178 H (70-110) mg/dL Hemoglobin A1c 6.5 H (<=6.0) % Triglycerides 164.00 H (0.00-149.00) mg/dL HDL Cholesterol 35.70 L (40.00-60.00) mg/dL 08/05/24 08/06/24 08/06/24 Range/Units 20:08 06:21 07:48 WBC 15.3 H (3.8-10.6) k/uL Neutrophils # 13.1 H (1.3-7.7) k/uL Potassium (3.5-5.1) mmol/L BUN (9-20) mg/dL Creatinine (0.66-1.25) mg/dL Glucose (74-99) mg/dL POC Glucose (mg/dL) 175 H 136 H (70-110) mg/dL Hemoglobin A1c (<=6.0) % Triglycerides (0.00-149.00) mg/dL HDL Cholesterol (40.00-60.00) mg/dL 08/06/24 08/06/24 Range/Units 07:48 11:18 WBC (3.8-10.6) k/uL Neutrophils # (1.3-7.7) k/uL Potassium 3.2 L (3.5-5.1) mmol/L BUN 41 H (9-20) mg/dL Creatinine 1.42 H (0.66-1.25) mg/dL Glucose 164 H (74-99) mg/dL POC Glucose (mg/dL) 134 H (70-110) mg/dL Hemoglobin A1c (<=6.0) % Triglycerides (0.00-149.00) mg/dL HDL Cholesterol (40.00-60.00) mg/dL Assessment and Plan Assessment: -Altered mental status, present on admission. Most likely metabolic/toxic encephalopathy, including renal failure's and narcotic use -Acute kidney injury on chronic kidney disease stage 2 -Fall at home 3 days prior to hospitalization without syncope with resultant severe low back pain with no evidence of fracture on the x-ray -Acute CHF with mild pulmonary congestion. Old echocardiogram showing EF 55 45- 50 % -COPD; not in exacerbation -Recent history of left thigh abscess -Hypertension -Chronic back pain -Chronic leukocytosis -Obesity with BMI of 38 Plan: Oxycodone ER already been ordered. Percocet resumed at home dose open patient request and insistence I talked to the patient about resuming the rest of the pain medication, he was adamant to resume it although the risk of respiratory depression and/or are explained to him, however he agrees to start smaller dose of Percocet 5 mg instead of 10 with close monitoring Joel switched IV Lasix to oral dose Consult orthopedic team Continue with Gamez catheter Hold losartan and naproxen Nephrology team consult Cardiology team consult Pain management consult Labs and medication were reviewed.. Continue same treatment. Continue with symptomatic treatment. Resume home medication. Monitor labs and vitals. DVT and GI prophylaxis. Further recommendations as per clinical course of the patient DVT prophylaxis: Subcutaneous heparin GI Prophylaxis: Pepcid PT/OT: Pending Prognosis is guarded
--- NOTE | 2024-08-06 14:37 | P.CRDCN ---
History of Present Illness Consult date: 08/05/24 History of present illness: HISTORY OF PRESENTING ILLNESS 54-year-old with multiple medical comorbidities. Patient is a very poor historian. History is mostly obtained from medical chart. Patient apparently was having altered mental status. Has been a complaining of chronic back pain and has been asking for Percocet. He also smokes 3 packs/day, he reports that he had a fall 2 days ago where he slipped in the rainy weather. On admission he was afebrile, mildly tachycardic and tachypneic, 95% on 2 L oxygen Troponin was not elevated, TSH was 0.8, ECG showed sinus tachycardia with no significant ST-T wave changes, CT of the brain was negative, chest x-ray showed mild pulmonary congestion. Prior echo from 2018 showed EF 55 to 60%. On admission his creatinine was 4.2 REVIEW OF SYSTEMS 14 point review of system is negative except what is mentioned above in HPI. PHYSICAL EXAMINATION Personal hygiene Head: Normocephalic. Eyes: Sclerae nonicteric. Neck: Brisk carotid upstroke, Lungs: Crackles audible in lung warner Heart: Regular rate and rhythm, significant murmurs Abdomen: Soft nontender, positive bowel sounds. Extremities: 1-2+ pitting edema bilateral lower extremity Neuro: Alert, oritented, no focal deficits. Detailed neuro exam was not performed. ASSESSMENT Acute CHF exacerbation, likely HFpEF DARIA CKD Metabolic encephalopathy COPD not in exacerbation Heavy tobacco smoker Essential hypertension PLAN Continue aspirin, statin, Coreg, Lasix Consult nephrology Obtain echocardiogram Further recommendations to follow Appreciate nephrology recommendations Madhu Feng MD, FACC, RPVI Thank you for allowing [facility] to participate in this patient's care. Feel free to reach out in case of any followup questions. Past Medical History Past Medical History: Chest Pain / Angina, Diabetes Mellitus, Fibromyalgia, Hyperlipidemia, Hypertension, Pneumonia, Respiratory Disorder Additional Past Medical History / Comment(s): left outer thigh wound mostly h ealed, Left lung pneumonia/empyema, gout, chronic fibromyalgia, chronic lower back pain, degenerative arthritis, history of degenerative disc disease involving the lumbar spine, hypertension, hyperlipidemia, atrial fibrillation as the patient went into atrial fibrillation during her hospitalization for a left lower lobe pneumonia back in October 2017 and subsequently he converted back to normal sinus. He has chronic anxiety. NEUROPATHY History of Any Multi-Drug Resistant Organisms: None Reported Past Surgical History: Back Surgery, Joint Replacement, Orthopedic Surgery Additional Past Surgical History / Comment(s): rt hip replacement, rt knee replacement, left knee surgery with metal, neck fusion, lower back surgery, traumatic amputation rt index finger, left index finger tip amputation from injury. 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 He has a cane to ambulate and occasionally uses a walker. He drives. Smoking Status: Current every day smoker Past Alcohol Use History: Daily Additional Past Alcohol Use History / Comment(s): Pt started smoking in 1985 and has been a 3 ppd smoker Past Drug Use History: None Reported Additional Drug Use History / Comment(s): Occasional medical marijuana for pain control. - Past Family History Mother Family Medical History: No Reported History Additional Family Medical History / Comment(s): enlarged heart Father Family Medical History: No Reported History Additional Family Medical History / Comment(s): Father lived to be 101 yrs old. Medications and Allergies Home Medications Medication Instructions Recorded Confirmed Type Albuterol Sulfate [Albuterol 2 puff INHALATION RT-Q6H 06/05/20 08/04/24 History Sulfate Hfa] DULoxetine HCL [Cymbalta] 30 mg PO BID 06/05/20 08/04/24 History Pregabalin [Lyrica] 200 mg PO TID 06/05/20 08/04/24 History oxyCODONE HCL/ACETAMINOPHEN 1 tab PO QID PRN 06/05/20 08/04/24 History [Percocet 10-325 mg] Fluticasone/Umeclidin/Vilanter 1 puff INHALATION RT-DAILY 04/05/22 08/04/24 History [Trelegy Ellipta 100-62.5-25] Losartan Potassium 100 mg PO DAILY 04/05/22 08/04/24 History Milnacipran HCl [Savella] 100 mg PO DAILY 04/05/22 08/04/24 History Naproxen [Naprosyn] 500 mg PO BID 04/05/22 08/04/24 History tiZANidine [Zanaflex] 6 mg PO TID PRN 04/05/22 08/04/24 History Amitriptyline HCl [Elavil] 50 - 100 mg PO HS 02/25/24 08/04/24 History Atorvastatin [Lipitor] 20 mg PO DAILY 02/25/24 08/04/24 History Dapagliflozin Propanediol [Farxiga] 5 mg PO DAILY 02/25/24 08/04/24 History INSULIN ASPART (NovoLOG) [NovoLOG 5 unit SQ TID-W/MEALS 02/25/24 08/04/24 History (formulary)] Insulin Detemir (Levemir) [Levemir] 20 unit SQ BID 02/25/24 08/04/24 History Loratadine [Claritin] 10 mg PO DAILY 02/25/24 08/04/24 History Pramipexole Di-HCl [Mirapex] 0.75 mg PO HS 02/25/24 08/04/24 History oxyCODONE ER [OxyCONTIN] 10 mg PO Q12HR 02/25/24 08/04/24 History traZODone HCL 150 mg PO HS 08/04/24 08/04/24 History Allergies Allergy/AdvReac Type Severity Reaction Status Date / Time No Known Allergies Allergy Verified 08/04/24 15:56 Physical Exam Vitals: Vital Signs Temp Pulse Pulse Pulse Resp BP Pulse Ox 08/06/24 12:00 98.3 F 98 20 93/61 92 L 08/06/24 08:10 99 F 98 98 18 102/66 94 L 08/06/24 07:53 106 H 08/06/24 07:41 103 H 08/06/24 03:19 99.2 F 114 H 18 116/70 93 L 08/06/24 01:16 107 H 20 08/06/24 00:14 107 H 20 08/06/24 00:08 110 H 20 08/05/24 23:13 97.4 F L 107 H 18 97/63 94 L 08/05/24 20:55 99 20 08/05/24 20:48 101 H 20 08/05/24 20:00 99.0 F 109 H 18 103/64 96 08/05/24 17:30 98.3 F 116 H 18 100/58 92 L 08/05/24 15:12 84 08/05/24 15:02 80 Intake and Output 08/05/24 08/06/24 08/06/24 22:59 06:59 14:59 Intake Total 120 540 360 Output Total 300 600 475 Balance -180 -60 -115 Intake: Oral 120 540 360 Output: Urine 300 600 475 Other: Voiding Method Urinal Urinal Urinal # Voids 2 Weight 134.263 kg 152.3 kg Results 08/06/24 07:48 08/06/24 07:48 Lipids 08/05/24 Range/Units 06:58 Triglycerides 164.00 H (0.00-149.00) mg/dL Cholesterol 111.00 (0.00-200.00) mg/dL HDL Cholesterol 35.70 L (40.00-60.00) mg/dL Cholesterol/HDL Ratio 3.11 Ratio CBC 08/06/24 Range/Units 07:48 WBC 15.3 H (3.8-10.6) k/uL RBC 4.37 (4.30-5.90) m/uL Hgb 14.0 (13.0-17.5) gm/dL Hct 41.8 (39.0-53.0) % Plt Count 243 (150-450) k/uL Comprehensive Metabolic Panel 08/06/24 Range/Units 07:48 Sodium 137 (137-145) mmol/L Potassium 3.2 L (3.5-5.1) mmol/L Chloride 98 (98-107) mmol/L Carbon Dioxide 28 (22-30) mmol/L BUN 41 H (9-20) mg/dL Creatinine 1.42 H (0.66-1.25) mg/dL Glucose 164 H (74-99) mg/dL Calcium 8.7 (8.4-10.2) mg/dL Current Medications Generic Name Dose Route Start Last Admin Trade Name Freq PRN Reason Stop Dose Admin Albuterol Sulfate 2.5 mg 08/05/24 14:00 08/06/24 07:39 Albuterol Nebulized 2.5 Mg/3 Ml INHALATION 2.5 mg RT-Q6H UZIEL Administration Albuterol Sulfate 2.5 mg 08/06/24 00:10 Albuterol Nebulized 2.5 Mg/3 Ml INHALATION RT-QID PRN Shortness Of Breath Or Wheezing Amitriptyline HCl 50 mg 08/05/24 21:00 08/05/24 20:31 Amitriptyline Hcl 50 Mg Tab PO 50 mg HS UZIEL Administration Aspirin 81 mg 08/05/24 12:30 08/06/24 08:25 Aspirin 81 Mg PO 81 mg DAILY UZIEL Administration Atorvastatin Calcium 40 mg 08/05/24 21:00 08/05/24 20:31 Atorvastatin 40 Mg Tab PO 40 mg HS UZIEL Administration Carvedilol 3.125 mg 08/05/24 12:30 08/06/24 06:35 Carvedilol 3.125 Mg Tab PO 3.125 mg BID-W/MEALS UZIEL Administration Dapagliflozin 5 mg 08/06/24 09:00 08/06/24 08:26 Dapagliflozin Propanediol 5 Mg Tablet PO 5 mg DAILY UZIEL Administration Duloxetine HCl 30 mg 08/05/24 21:00 08/06/24 08:25 Duloxetine Hcl 30 Mg Capsule.Dr PO 30 mg BID UZIEL Administration Furosemide 40 mg 08/06/24 16:00 Furosemide 40 Mg Tab PO BID@0900,1600 [facility] Guaifenesin 600 mg 08/06/24 21:00 Guaifenesin 600 Mg Tablet.Er PO Q12HR [facility] Insulin Aspart 5 unit 08/05/24 12:30 08/06/24 11:49 Insulin Aspart (Novolog) 100 Unit/Ml Vial SQ 5 unit TID-W/MEALS UZIEL Administration Insulin Detemir 20 unit 08/05/24 21:00 08/06/24 06:35 Insulin Detemir (Levemir) 100 Unit/Ml Syr SQ 20 unit BID@0700,2100 [facility] Administration Miscellaneous Information 1 each 08/06/24 09:04 Potassium Replacement Protocol 1 Each Misc MISCELLANE DAILY PRN Per Protocol Protocol Nicotine 1 patch 08/05/24 10:30 08/06/24 08:25 Nicotine 21mg/24hr Patch TRANSDERM 1 patch DAILY UZIEL Administration Nystatin 1 applic 08/06/24 11:30 08/06/24 11:58 Nystatin 100,000 Unit/Gm Powd 15 Gm TOPICAL 1 applic BID UZIEL Administration Protocol Oxycodone HCl 10 mg 08/04/24 21:15 08/06/24 08:25 Oxycodone Er 10 Mg Tab.Er.12h PO 10 mg Q12HR UZIEL Administration Protocol Oxycodone/Acetaminophen 1 each 08/06/24 09:05 08/06/24 11:49 Oxycodone-Apap 10-325mg 1 Each Tab PO 1 each Q6HR PRN Administration Pain Intake and Output 08/05/24 08/06/24 08/06/24 22:59 06:59 14:59 Intake Total 120 540 360 Output Total 300 600 475 Balance -180 -60 -115 Intake: Oral 120 540 360 Output: Urine 300 600 475 Other: Voiding Method Urinal Urinal Urinal # Voids 2 Weight 134.263 kg 152.3 kg 08/06/24 07:48 08/06/24 07:48
--- NOTE | 2024-08-06 14:40 | P.PN ---
Subjective Progress Note Date: 08/06/24 HISTORY OF PRESENTING ILLNESS 54-year-old with multiple medical comorbidities. Patient is a very poor hist orian. History is mostly obtained from medical chart. Patient apparently was having altered mental status. Has been a complaining of chronic back pain and has been asking for Percocet. He also smokes 3 packs/day, he reports that he had a fall 2 days ago where he slipped in the rainy weather. On admission he was afebrile, mildly tachycardic and tachypneic, 95% on 2 L oxygen Troponin was not elevated, TSH was 0.8, ECG showed sinus tachycardia with no significant ST-T wave changes, CT of the brain was negative, chest x-ray showed mild pulmonary congestion. Prior echo from 2018 showed EF 55 to 60%. On admission his creatinine was 4.2 Progress note August 06 Patient's kidney function has been improving. Creatinine on admission was around 4. Creatinine today is 1.4. Adequate urine output with IV diuretics. Blood pressure is borderline normal, SBP 100 -110mmHg PHYSICAL EXAMINATION Personal hygiene Head: Normocephalic. Eyes: Sclerae nonicteric. Neck: Brisk carotid upstroke, Lungs: Crackles audible in lung warner Heart: Regular rate and rhythm, significant murmurs Abdomen: Soft nontender, positive bowel sounds. Extremities: 1-2+ pitting edema bilateral lower extremity Neuro: Alert, oritented, no focal deficits. Detailed neuro exam was not performed. ASSESSMENT Acute CHF exacerbation, likely HFpEF DARIA CKD Metabolic encephalopathy COPD not in exacerbation Heavy tobacco smoker Essential hypertension Cardiac testing Echocardiogram shows EF 45 to 50%, technically difficult study valvular function was not assessed PLAN Continue aspirin, statin, Coreg, Lasix Agree with Farxiga 10 mg daily Recommend smoking cessation Improve personal hygiene and importance of compliance of medication was discussed. Patient will need outpatient ischemic evaluation with a stress test considering his risk factors and abnormal LVEF. Further recommendations to follow Objective - Vital Signs Vital signs: Vital Signs Temp 98.3 F 08/06/24 12:00 Pulse 98 08/06/24 12:00 Resp 20 08/06/24 12:00 BP 93/61 08/06/24 12:00 Pulse Ox 92 L 08/06/24 12:00 FiO2 Intake & Output 08/05/24 08/06/24 08/06/24 18:59 06:59 18:59 Intake Total 120 540 360 Output Total 900 475 Balance 120 -360 -115 Weight 134.263 kg 152.3 kg Intake: Oral 120 540 360 Output: Urine 900 475 Other: Voiding Method Urinal Urinal # Voids 2 - Labs CBC & Chem 7: 08/06/24 07:48 08/06/24 07:48 Labs: Abnormal Lab Results - Last 24 Hours (Table) 08/05/24 08/05/24 08/05/24 Range/Units 06:58 06:58 17:36 WBC (3.8-10.6) k/uL Neutrophils # (1.3-7.7) k/uL Potassium (3.5-5.1) mmol/L BUN (9-20) mg/dL Creatinine (0.66-1.25) mg/dL Glucose (74-99) mg/dL POC Glucose (mg/dL) 178 H (70-110) mg/dL Hemoglobin A1c 6.5 H (<=6.0) % Triglycerides 164.00 H (0.00-149.00) mg/dL HDL Cholesterol 35.70 L (40.00-60.00) mg/dL 08/05/24 08/06/24 08/06/24 Range/Units 20:08 06:21 07:48 WBC 15.3 H (3.8-10.6) k/uL Neutrophils # 13.1 H (1.3-7.7) k/uL Potassium (3.5-5.1) mmol/L BUN (9-20) mg/dL Creatinine (0.66-1.25) mg/dL Glucose (74-99) mg/dL POC Glucose (mg/dL) 175 H 136 H (70-110) mg/dL Hemoglobin A1c (<=6.0) % Triglycerides (0.00-149.00) mg/dL HDL Cholesterol (40.00-60.00) mg/dL 08/06/24 08/06/24 08/06/24 Range/Units 07:48 11:18 12:54 WBC (3.8-10.6) k/uL Neutrophils # (1.3-7.7) k/uL Potassium 3.2 L (3.5-5.1) mmol/L BUN 41 H (9-20) mg/dL Creatinine 1.42 H (0.66-1.25) mg/dL Glucose 164 H (74-99) mg/dL POC Glucose (mg/dL) 134 H 169 H (70-110) mg/dL Hemoglobin A1c (<=6.0) % Triglycerides (0.00-149.00) mg/dL HDL Cholesterol (40.00-60.00) mg/dL
[2024-08-06 16:18] LABS: Glucose,Whole Blood 128 mg/dL (70-110)
[2024-08-06] MEDS: FUROSEMIDE 40 MG TAB PO SCH (16:31)
[2024-08-06 20:13] LABS: Glucose,Whole Blood 187 mg/dL (70-110)
[2024-08-06] MEDS: guaiFENesin 600 MG TABLET.ER PO SCH (21:07)
[2024-08-06] MEDS: DEXTROSE 5% IN WATER 100 ML with AMIODARONE 150 MG IV ONE (22:36)
[2024-08-06] MEDS: AMIODARONE 360 MG in DEXTROSE 5% IN WATER 200 ML IV ONE (22:43)
[2024-08-06] MEDS: HEPARIN SOD,PORK IN 0.45% NACL 25,000 UNIT in 0.45% NACL 1 250ML.BAG IV SCH (22:51)
[2024-08-07] MEDS: AMIODARONE 450 MG in DEXTROSE 5% IN WATER 250 ML IV SCH (04:04)
[2024-08-07] MEDS ORDERED: CAFFEINE CITRATE 60 MG/3 ML VIAL IV PRN (06:00)
[2024-08-07] MEDS ORDERED: REGADENOSON 0.4 MG/5 ML SYRINGE IV PRN (06:00)
[2024-08-07] MEDS ORDERED: AMINOPHYLLINE 500 MG/20 ML VIAL IV PRN (06:00)
[2024-08-07 06:08] LABS: Glucose,Whole Blood 158 mg/dL (70-110)
[2024-08-07 07:18] LABS: Basophils % (A) 0 %; Eosinophils # (A) 0.1 k/uL (0-0.7); Eosinophils % (A) 0 %; HCT 46.2 % (39.0-53.0); HGB 15.2 gm/dL (13.0-17.5); Lymphocytes # (A) 1.3 k/uL (1.0-4.8); Lymphocytes % (A) 8 %; MCH 31.7 pg (25.0-35.0); MCHC 32.8 g/dL (31.0-37.0); MCV 96.7 fL (80.0-100.0); Mean Platelet Volume 8.9; Monocytes # (A) 0.6 k/uL (0-1.0); Monocytes % (A) 4 %; Neutrophils # (A) 14.3 k/uL (1.3-7.7); Neutrophils % (A) 86 %; Platelet Count 266 k/uL (150-450); RBC 4.78 m/uL (4.30-5.90); WBC 16.5 k/uL (3.8-10.6)
[2024-08-07 07:45] LABS: African American GFR (CKD) >90 (>60 ml/min/1.73 sqM); Anion Gap 15 mmol/L; Blood Urea Nitrogen 30 mg/dL (9-20); Calcium 9.1 mg/dL (8.4-10.2); Carbon Dioxide 27 mmol/L (22-30); Chloride 98 mmol/L (98-107); Glucose 160 mg/dL (74-99); Non-African American GFR(CKD) >90 (>60 ml/min/1.73 sqM); Potassium 3.2 mmol/L (3.5-5.1); Sodium 140 mmol/L (137-145)
[2024-08-07] MEDS: DAPAGLIFLOZIN PROPANEDIOL 10 MG TABLET PO SCH (09:04)
--- NOTE | 2024-08-07 10:53 | P.PN ---
Subjective This is a pleasant 54 years old male with past medical history of multiple medical problems Patient states he does not remember why he is in the hospital As per documented staff patient presents because of altered mental status. Patient this morning he is stating his main concern is his chronic low back pain and he is asking for his Percocet which he takes at home otherwise he will leave AMA. Patient referring to his oxycodone ER 10 mg Twice daily, as well as Percocet 10 mg every 6 hours, I explained for the patient the risk and benefits of this medication including but not limited to the risk of respiratory depression and/or , Patient however denies specific symptoms, no abdominal pain vomiting diarrhea, no dysuria or urgency. No chest pain dyspnea or coughing. No headache dizziness weakness or numbness Patient states that he fell 2 days ago when he slipped on the rainy weather Also states that he smokes 3 packs/day and he was counseled to quit and he agrees and wants the nicotine patch but denies alcohol. Patient states that he uses marijuana sometimes Patient is afebrile, he is mildly tachycardic and tachypneic. He was saturating 95% on 2 L oxygen Labs reviewed WBC 14,020 1000 but he has chronic leukocytosis INR 0.9 Troponin is -0.015 Urine analysis is negative TSH 0.8 Ammonia level is negative at 29 Urine drug screen is positive for oxycodone, TCA and marijuana EKG showing sinus rhythm with tachycardia at [address]-T changes CT of the brain is negative Chest x-ray showing cardiomegaly with mild pulmonary vascular congestion No recent echocardiogram, ejection fraction from 2018 was 55 to 60% 08/06 Patient is awake alert He is complaining from severe low back pain. He is adamant to restart his Percocet 10-325 mg every 6 hours as needed on the top of 10 mg of OxyContin twice daily which are his home medication. Risks including but not limited to the respiratory depression and/or I explained to him and he still wants his pain medication Patient states that he was taking this pain medication for his fibromyalgia however about 3 days ago he was moving the chair in his kitchen when he slipped and fell on his face and the back, states he was rolling when he fell and since then he is having severe low back pain. He states pain was not that severe before he falls however patient denies new weakness or tingling or numbness in his lower extremities. He could walk to the restroom. He is planning to get a shower today with the help of his staff Other than that his creatinine improved significantly down to 1.4, his IV Lasix twice daily switched to oral dose Losartan remains on hold. Naproxen was one of his home medication listed however patient denies taking this medication, however he was counseled against using NSAIDs like Motrin, ibuprofen or Naprosyn Echocardiogram showing ejection fraction of 45 to 50% Renal ultrasound showing no obstructive uropathy Lumbar x-ray ordered today showing no fracture or dislocation and good alignment Labs showing improving leukocytosis at 15.3 but this is a chronic problem. Creatinine significantly improved down to 1.4 08/07 Patient was supposed to get stress test today however he ate so it was postponed till tomorrow No Gamez catheter, no urinary complaints No other new complaint Creatinine improved down to normal at 0.9 Patient still insisting on getting all his pain medication of Percocet 10 mg as well as longer acting OxyContin He remains on heparin drip We will check ultrasound of the thigh to rule out residual abscess. Given his leukocytosis which is also is chronic Objective - Vital Signs Vital signs: Vital Signs Temp 97.1 F L 08/07/24 08:00 Pulse 76 08/07/24 08:47 Resp 18 08/07/24 08:00 BP 135/85 08/07/24 08:00 Pulse Ox 94 L 08/07/24 08:40 FiO2 Intake & Output 08/06/24 08/07/24 08/07/24 18:59 06:59 18:59 Intake Total 480 120 Output Total 975 500 Balance -495 -500 120 Weight 142.5 kg Intake: Oral 480 120 Output: Urine 975 500 Other: Voiding Method Urinal Urinal # Voids 2 - Exam -GENERAL: The patient is alert and oriented x3, not in any acute distress. Well developed, well nourished. Obese HEENT: Pupils are round and equally reacting to light. EOMI. No scleral icterus. No conjunctival pallor. Normocephalic, atraumatic. No pharyngeal erythema. No thyromegaly. CARDIOVASCULAR: S1 and S2 present. No murmurs, rubs, or gallops. PULMONARY: Chest is clear to auscultation, no wheezing , no crackles. ABDOMEN: Soft, nontender, nondistended, normoactive bowel sounds. No palpable organomegaly. MUSCULOSKELETAL: No joint swelling or deformity. -EXTREMITIES: No cyanosis, clubbing, or pedal edema. Posterior thigh with area of discoloration at the area of recent drained abscess NEUROLOGICAL: Gross neurological examination did not reveal any focal deficits. SKIN: No rashes. no petechiae. - Labs CBC & Chem 7: 08/07/24 06:01 08/07/24 06:01 Labs: Abnormal Lab Results - Last 24 Hours (Table) 08/06/24 08/06/24 08/06/24 Range/Units 11:18 12:54 16:17 WBC (3.8-10.6) k/uL Neutrophils # (1.3-7.7) k/uL Potassium (3.5-5.1) mmol/L BUN (9-20) mg/dL Glucose (74-99) mg/dL POC Glucose (mg/dL) 134 H 169 H 128 H (70-110) mg/dL 08/06/24 08/07/24 08/07/24 Range/Units 20:12 06:01 06:01 WBC 16.5 H (3.8-10.6) k/uL Neutrophils # 14.3 H (1.3-7.7) k/uL Potassium 3.2 L (3.5-5.1) mmol/L BUN 30 H (9-20) mg/dL Glucose 160 H (74-99) mg/dL POC Glucose (mg/dL) 187 H (70-110) mg/dL 08/07/24 Range/Units 06:07 WBC (3.8-10.6) k/uL Neutrophils # (1.3-7.7) k/uL Potassium (3.5-5.1) mmol/L BUN (9-20) mg/dL Glucose (74-99) mg/dL POC Glucose (mg/dL) 158 H (70-110) mg/dL Assessment and Plan Assessment: -Altered mental status, present on admission. Most likely metabolic/toxic encephalopathy, including renal failure's and narcotic use -Acute kidney injury on chronic kidney disease stage 2 -Fall at home 3 days prior to hospitalization without syncope with resultant severe low back pain with no evidence of fracture on the x-ray -Acute CHF with mild pulmonary congestion. Old echocardiogram showing EF 55 45- 50 % -COPD; not in exacerbation -Recent history of left thigh abscess -Hypertension -Chronic back pain -Chronic leukocytosis -Obesity with BMI of 38 Plan: Possible stress test tomorrow Follow-up ultrasound of the thyroid Oxycodone ER already been ordered. Percocet resumed at home dose open patient request and insistence I talked to the patient about resuming the rest of the pain medication, he was adamant to resume it although the risk of respiratory depression and/or are explained to him, however he agrees to start smaller dose of Percocet 5 mg instead of 10 with close monitoring switched IV Lasix to oral dose Consult orthopedic team No Gamez catheter Continue with cardiac medication Hold losartan and naproxen Nephrology team consult Cardiology team consult Pain management consult Labs and medication were reviewed.. Continue same treatment. Continue with symptomatic treatment. Resume home medication. Monitor labs and vitals. DVT and GI prophylaxis. Further recommendations as per clinical course of the patient DVT prophylaxis: Subcutaneous heparin GI Prophylaxis: Pepcid Prognosis is guarded Possible discharge in 24 to 48 hours if he keeps improving
--- NOTE | 2024-08-07 11:19 | P.PN ---
Subjective patient is seen for follow-up for acute kidney injury. Renal function has improved significantly. Serum creatinine decreased to 0.9 today. Potassium was 3.2. Patient reports good urine output. He is maintained on oral Lasix Objective - Vital Signs Vital signs: Vital Signs Temp 97.1 F L 08/07/24 08:00 Pulse 76 08/07/24 08:47 Resp 18 08/07/24 08:00 BP 135/85 08/07/24 08:00 Pulse Ox 94 L 08/07/24 08:40 FiO2 Intake & Output 08/06/24 08/07/24 08/07/24 18:59 06:59 18:59 Intake Total 480 120 Output Total 975 500 Balance -495 -500 120 Weight 142.5 kg Intake: Oral 480 120 Output: Urine 975 500 Other: Voiding Method Urinal Urinal # Voids 2 - Exam patient is awake, comfortable, in no acute distress. Examination of the heart S1 and S2 Examination of the lungs bilateral breath sounds are heard Abdomen is soft nontender Examination of lower extremities shows no significant edema TAIL END RIDER exam grossly intact - Labs CBC & Chem 7: 08/07/24 06:01 08/07/24 06:01 Labs: Abnormal Lab Results - Last 24 Hours (Table) 08/06/24 08/06/24 08/06/24 Range/Units 11:18 12:54 16:17 WBC (3.8-10.6) k/uL Neutrophils # (1.3-7.7) k/uL Potassium (3.5-5.1) mmol/L BUN (9-20) mg/dL Glucose (74-99) mg/dL POC Glucose (mg/dL) 134 H 169 H 128 H (70-110) mg/dL 08/06/24 08/07/24 08/07/24 Range/Units 20:12 06:01 06:01 WBC 16.5 H (3.8-10.6) k/uL Neutrophils # 14.3 H (1.3-7.7) k/uL Potassium 3.2 L (3.5-5.1) mmol/L BUN 30 H (9-20) mg/dL Glucose 160 H (74-99) mg/dL POC Glucose (mg/dL) 187 H (70-110) mg/dL 08/07/24 Range/Units 06:07 WBC (3.8-10.6) k/uL Neutrophils # (1.3-7.7) k/uL Potassium (3.5-5.1) mmol/L BUN (9-20) mg/dL Glucose (74-99) mg/dL POC Glucose (mg/dL) 158 H (70-110) mg/dL Assessment and Plan Assessment: 1. Acute kidney injury ATN, nonoliguric secondary to hypotension, NSAIDs in the setting of use of angiotensin receptor blockers. Currently being diuresed for volume overload. UA is benign. Gamez catheter was removed yesterday. 2. Mental status changes possibly related to pain meds. Drug screen was positi ve for opiates, tricyclic antidepressants and marijuana 3. Volume overload, improved 4. Hypertension with blood pressure low on admission, currently stable Plan: continue with oral Lasix Replace potassium
[2024-08-07] MEDS: POTASSIUM CHLORIDE ER 20 MEQ TAB.ER PO SCH (12:06)
[2024-08-07] MEDS: oxyCODONE-APAP 10-325MG 1 EACH TAB PO SCH (12:06)
--- NOTE | 2024-08-07 13:58 | P.PN ---
Subjective HISTORY OF PRESENT ILLNESS: This is a 54-year-old male who is admitted to the hospital secondary to congestive heart failure and acute kidney injury. Patient was initially started on IV diuretics and has since been transition to oral diuretics. Kidney function today stable at 0.92. Patient underwent echocardiogram revealing ejection fraction 45 to 50%. Echo was technically difficult study and valvular function was not assessed. Patient went into [facility] with RVR overnight. He was started on IV amiodarone. He remains in atrial fibrillation this morning with a heart rate around 100. Patient was scheduled to undergo Lexiscan stress test this morning however someone gave the patient breakfast. Patient currently denies chest pain or pressure. She denies shortness of breath. He remains on IV heparin. PHYSICAL EXAM: VITAL SIGNS: Reviewed. GENERAL: Well-developed in no acute distress. NECK: Supple. No JVD or thyromegaly LUNGS: Respirations even and unlabored. Lungs essentially clear to auscultation bilaterally. HEART: Irregular rate and rhythm. S1 and S2 heard. EXTREMITIES: Normal range of motion. No clubbing or cyanosis. Peripheral pulses intact. No lower extremity edema ASSESSMENT: Acute congestive heart failure with mildly reduced EF 45 to 50% Acute kidney injury, resolved New onset atrial fibrillation with RVR Mild cardiomyopathy, 45%, ischemic versus nonischemic Hypertension Hyperlipidemia Nicotine dependence, patient reports smoking 3 packs/day Morbid obesity: BMI 40.3 PLAN: Nephrology following. Continue oral diuretics. Continue IV amiodarone until 2300 this evening. Begin oral amiodarone 200 mg twice daily starting this evening. Continue IV heparin. Patient will be transitioned to oral anticoagulation after stress test if results are negative. Continue additional cardiac medications Discontinue carvedilol. Begin metoprolol tartrate 50 mg twice a day. First dose now. N.p.o. at midnight. Do not hold any cardiac medications for Lexiscan stress test!! Patient to undergo Lexiscan stress test tomorrow Further recommendations pending patient course Patient to follow-up postdischarge with Dr. Feng Nurse practitioner note has been reviewed by physician. Signing provider agrees with the documented findings, assessment, and plan of care documented by [employer] as a scribe. Objective - Vital Signs Vital signs: Vital Signs Temp 97.4 F L 08/06/24 20:08 Pulse 118 H 08/07/24 04:02 Resp 18 08/07/24 04:02 BP 134/84 08/07/24 04:02 Pulse Ox 95 08/07/24 04:02 FiO2 Intake & Output 08/06/24 08/07/24 08/07/24 18:59 06:59 18:59 Intake Total 480 Output Total 975 500 Balance -495 -500 Weight 142.5 kg Intake: Oral 480 Output: Urine 975 500 Other: Voiding Method Urinal Urinal # Voids 2 - Labs CBC & Chem 7: 08/07/24 06:01 08/07/24 06:01 Labs: Abnormal Lab Results - Last 24 Hours (Table) 08/06/24 08/06/24 08/06/24 Range/Units 07:48 07:48 11:18 WBC 15.3 H (3.8-10.6) k/uL Neutrophils # 13.1 H (1.3-7.7) k/uL Potassium 3.2 L (3.5-5.1) mmol/L BUN 41 H (9-20) mg/dL Creatinine 1.42 H (0.66-1.25) mg/dL Glucose 164 H (74-99) mg/dL POC Glucose (mg/dL) 134 H (70-110) mg/dL 08/06/24 08/06/24 08/06/24 Range/Units 12:54 16:17 20:12 WBC (3.8-10.6) k/uL Neutrophils # (1.3-7.7) k/uL Potassium (3.5-5.1) mmol/L BUN (9-20) mg/dL Creatinine (0.66-1.25) mg/dL Glucose (74-99) mg/dL POC Glucose (mg/dL) 169 H 128 H 187 H (70-110) mg/dL 08/07/24 08/07/24 08/07/24 Range/Units 06:01 06:01 06:07 WBC 16.5 H (3.8-10.6) k/uL Neutrophils # 14.3 H (1.3-7.7) k/uL Potassium 3.2 L (3.5-5.1) mmol/L BUN 30 H (9-20) mg/dL Creatinine (0.66-1.25) mg/dL Glucose 160 H (74-99) mg/dL POC Glucose (mg/dL) 158 H (70-110) mg/dL
--- NOTE | 2024-08-07 14:01 | US ---
EXAMINATION TYPE: US extremity nonvasc mass LT DATE OF EXAM: 08/07/2024 COMPARISON: NONE CLINICAL INDICATION: Male, 54 years old with history of recent h/o left thigh absces,; Hx abscess TECHNIQUE: several santizo scale and color doppler images taken at area of concern FINDINGS: 5.1x2.7x0.5cm irregular hyperemic hypoechoic area at area of concern IMPRESSION: 5.1 cm hyperemic hypoechoic nodule. Palpable abnormality is nonspecific. Abscess in the differential diagnosis. Follow-up to resolution recommended to exclude other etiologies [facility], , 08/07/2024 1:58 PM
[2024-08-07] MEDS: oxyCODONE-APAP 10-325MG 1 EACH TAB PO PRN (14:31)
[2024-08-07] MEDS: METOPROLOL TARTRATE 50 MG TAB PO SCH (14:33)
--- NOTE | 2024-08-07 14:46 | P.CNOR ---
History of Present Illness - [facility] Consult date: 08/07/24 Consult reason: low back pain History of present illness: Patient is a 54-year-old male who has been admitted to [facility] with multiple medical comorbidities, he is being followed by multiple medical specialties at this time. Patient has a known history of chronic low back problems. Has had previous cervical spine surgery. He has had multiple orthopedic surgeries done to the bilateral hips and left knee. Our orthopedic team was consulted with regards to his back pain. Apparently the patient did have a fall at home prior to coming into the hospital. Patient was evaluated at bedside today, he was sleeping on his lateral, position upon arrival to the room, he was easily awoken. Patient was very pleasant on exam today. Patient has a known history also of fibromyalgia on top with multiple medical issues. Patient states that his low back pain is most sometime controlled, he has been seeing a pain management doctor in [facility] for many years. This pain management doctor does prescribe him all of his narcotics. He has had a few different rounds of epidural injections for the lumbar spine. He states that the pain had worsened slightly after falling. Patient denies any new onset loss of bowel or bladder function. He has chronic neuropathy to the bilateral lower extremities and admits to numbness and tingling which is about at his baseline. He denies any genital or perineal numbness or tingling at this time. Review of Systems Constitutional: Reports as per [facility] Past Medical History Past Medical History: Chest Pain / Angina, Diabetes Mellitus, Fibromyalgia, Hyperlipidemia, Hypertension, Pneumonia, Respiratory Disorder Additional Past Medical History / Comment(s): left outer thigh wound mostly healed, Left lung pneumonia/empyema, gout, chronic fibromyalgia, chronic lower back pain, degenerative arthritis, history of degenerative disc disease involving the lumbar spine, hypertension, hyperlipidemia, atrial fibrillation as the patient went into atrial fibrillation during her hospitalization for a left lower lobe pneumonia back in October 2017 and subsequently he converted back to normal sinus. He has chronic anxiety. NEUROPATHY History of Any Multi-Drug Resistant Organisms: None Reported Past Surgical History: Back Surgery, Joint Replacement, Orthopedic Surgery Additional Past Surgical History / Comment(s): rt hip replacement, rt knee replacement, left knee surgery with metal, neck fusion, lower back surgery, traumatic amputation rt index finger, left index finger tip amputation from injury. 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 He has a cane to ambulate and occasionally uses a walker. He drives. Smoking Status: Current every day smoker Past Alcohol Use History: Daily Additional Past Alcohol Use History / Comment(s): Pt started smoking in 1985 and has been a 3 ppd smoker Past Drug Use History: None Reported Additional Drug Use History / Comment(s): Occasional medical marijuana for pain control. - Past Family History Mother Family Medical History: No Reported History Additional Family Medical History / Comment(s): enlarged heart Father Family Medical History: No Reported History Additional Family Medical History / Comment(s): Father lived to be 101 yrs old. Medications and Allergies Home Medications Medication Instructions Recorded Confirmed Type Albuterol Sulfate [Albuterol 2 puff INHALATION RT-Q6H 06/05/20 08/04/24 History Sulfate Hfa] DULoxetine HCL [Cymbalta] 30 mg PO BID 06/05/20 08/04/24 History Pregabalin [Lyrica] 200 mg PO TID 06/05/20 08/04/24 History oxyCODONE HCL/ACETAMINOPHEN 1 tab PO QID PRN 06/05/20 08/04/24 History [Percocet 10-325 mg] Fluticasone/Umeclidin/Vilanter 1 puff INHALATION RT-DAILY 04/05/22 08/04/24 History [Trelegy Ellipta 100-62.5-25] Losartan Potassium 100 mg PO DAILY 04/05/22 08/04/24 History Milnacipran HCl [Savella] 100 mg PO DAILY 04/05/22 08/04/24 History Naproxen [Naprosyn] 500 mg PO BID 04/05/22 08/04/24 History tiZANidine [Zanaflex] 6 mg PO TID PRN 04/05/22 08/04/24 History Amitriptyline HCl [Elavil] 50 - 100 mg PO HS 02/25/24 08/04/24 History Atorvastatin [Lipitor] 20 mg PO DAILY 02/25/24 08/04/24 History Dapagliflozin Propanediol [Farxiga] 5 mg PO DAILY 02/25/24 08/04/24 History INSULIN ASPART (NovoLOG) [NovoLOG 5 unit SQ TID-W/MEALS 02/25/24 08/04/24 History (formulary)] Insulin Detemir (Levemir) [Levemir] 20 unit SQ BID 02/25/24 08/04/24 History Loratadine [Claritin] 10 mg PO DAILY 02/25/24 08/04/24 History Pramipexole Di-HCl [Mirapex] 0.75 mg PO HS 02/25/24 08/04/24 History oxyCODONE ER [OxyCONTIN] 10 mg PO Q12HR 02/25/24 08/04/24 History traZODone HCL 150 mg PO HS 08/04/24 08/04/24 History Allergies Allergy/AdvReac Type Severity Reaction Status Date / Time No Known Allergies Allergy Verified 08/04/24 15:56 Physical Examination Gen: AOx3, NAD VSS stable at this time Integument: No open lesions or sores are visualized throughout the cervical, thoracic or lumbar spine Palpation: No significant tenderness appreciated with palpation of both the midline and paraspinal region of the lumbar spine ROM: Full range of motion in all major muscle groups of the bilateral upper and lower extremities, no focal deficits appreciated. Patient does have some flexion contracture noted in his left knee, this does have a history of a total knee arthroplasty Sensory Exam: Senory exam to light touch is intact C5-T1 Senosry exam to light touch is intact L2-S1 Motor: 4/5 strength appreciated of bilateral lower extremities wit hip flexion, knee extension, knee flexion, plantarflexion, dorsiflexion, EHL, FHLh Reflexes: 2/4 in all UE and LE Negative clonus bilaterally Special Test: Negative straight leg raise bilaterally Results - Labs Labs: Abnormal Lab Results - Last 24 Hours (Table) 08/06/24 08/06/24 08/07/24 Range/Units 16:17 20:12 06:01 WBC 16.5 H (3.8-10.6) k/uL Neutrophils # 14.3 H (1.3-7.7) k/uL Potassium (3.5-5.1) mmol/L BUN (9-20) mg/dL Glucose (74-99) mg/dL POC Glucose (mg/dL) 128 H 187 H (70-110) mg/dL 08/07/24 08/07/24 Range/Units 06:01 06:07 WBC (3.8-10.6) k/uL Neutrophils # (1.3-7.7) k/uL Potassium 3.2 L (3.5-5.1) mmol/L BUN 30 H (9-20) mg/dL Glucose 160 H (74-99) mg/dL POC Glucose (mg/dL) 158 H (70-110) mg/dL H & H 08/04/24 08/05/24 08/06/24 Range/Units 14:46 06:58 07:48 Hgb 15.5 14.4 14.0 (13.0-17.5) gm/dL Hct 46.7 43.3 41.8 (39.0-53.0) % 08/07/24 Range/Units 06:01 Hgb 15.2 (13.0-17.5) gm/dL Hct 46.2 (39.0-53.0) % Coagulation 08/04/24 Range/Units 14:46 INR 0.9 (<1.2) Result Diagrams: 08/07/24 06:01 08/07/24 06:01 - Diagnostic results Lumbar AP/lateral x-ray: report reviewed (3 views of the lumbar spine reviewed, no acute fractures or dislocations. spondylitic changes appreciated L4-L5, L5- S1), image reviewed Assessment and Plan Assessment: Chronic low back pain Spondylosis L4-L5, L5-S1 Fibromyalgia Multiple medical comorbidities Plan: I was able to discuss the case, this to include physical exam findings and imaging studies my attending Dr. Luna. No emergent orthopedic surgical intervention is recommended at this time Recommend conservative measures, this to include normal pain medication he takes on a daily basis, possibility of outpatient physical therapy once discharged from the hospital. Recommend weight-bear as tolerated with assistive devices as needed GI and DVT prophylaxis per primary medical service Other medical specialty recommendations appreciated Orthopedically patient seems stable for discharge and follow-up in the outpatient setting. Had a long discussion with the patient today regarding his multiple medical issues would make him a very poor candidate for surgery. Patient can follow-up with his pain management doctor to address pain control issues. We can evaluate the patient in office as needed if symptoms continue to bother him or worsen. Please contact our service with any further questions regarding this patient. Time with Patient: Less than 30
[2024-08-07 16:27] LABS: Glucose,Whole Blood 144 mg/dL (70-110)
[2024-08-07 20:30] LABS: Glucose,Whole Blood 151 mg/dL (70-110)
[2024-08-07] MEDS: AMIODARONE 200 MG TAB PO SCH (21:11)
[2024-08-07] MEDS: HEPARIN SODIUM 1,000 UN/ML (10ML VL) IV PRN (21:14)
[2024-08-08 06:18] LABS: Glucose,Whole Blood 172 mg/dL (70-110)
[2024-08-08] MEDS: ALBUTEROL NEBULIZED 2.5 MG/3 ML INHALATION SCH (07:59)
[2024-08-08 11:19] LABS: Glucose,Whole Blood 120 mg/dL (70-110)
--- NOTE | 2024-08-08 11:37 | P.PN ---
Subjective patient is seen for follow-up for acute kidney injury. Renal function has improved significantly. Serum creatinine decreased to 0.9 yesterday. Potassium was 3.2. Patient reports good urine output. He is maintained on oral Lasix Objective - Vital Signs Vital signs: Vital Signs Temp 97.5 F L 08/08/24 08:15 Pulse 76 08/08/24 11:34 Resp 17 08/08/24 08:15 BP 101/74 08/08/24 08:15 Pulse Ox 94 L 08/08/24 08:15 FiO2 Intake & Output 08/07/24 08/08/24 08/08/24 18:59 06:59 18:59 Intake Total 840 582.349 Balance 840 582.349 Weight 149.4 kg Intake: Intake, IV Titration 582.349 Amount Amiodarone 450 mg In 250 Dextrose 5% in Water 250 ml @ 0.5 MG/MIN 16.667 mls/hr IV .Q15H [facility] Rx#: [id number] Heparin Sod,Pork in 0.45% 332.349 NaCl 25,000 unit In 0.45 % NaCl 1 250ml.bag @ 6.57 UNITS/KG/HR 10.006 mls/ hr IV .Q24H U[facility] Rx#: [id number] Oral 840 Other: Voiding Method Toilet Toilet # Voids 1 # Bowel Movements 1 - Exam patient is awake, comfortable, in no acute distress. Examination of the heart S1 and S2 Examination of the lungs bilateral breath sounds are heard Abdomen is soft nontender Examination of lower extremities shows no significant edema [facility]GER [facility] exam grossly intact - Labs CBC & Chem 7: 08/07/24 06:01 08/07/24 06:01 Labs: Abnormal Lab Results - Last 24 Hours (Table) 08/07/24 08/07/24 08/08/24 Range/Units 16:25 20:28 06:16 POC Glucose (mg/dL) 144 H 151 H 172 H (70-110) mg/dL 08/08/24 Range/Units 11:17 POC Glucose (mg/dL) 120 H (70-110) mg/dL Assessment and Plan Assessment: 1. Acute kidney injury ATN, nonoliguric secondary to hypotension, NSAIDs in the setting of use of angiotensin receptor blockers. Currently being diuresed for volume overload. UA is benign. Gamez catheter was removed. 2. Mental status changes possibly related to pain meds. Drug screen was positive for opiates, tricyclic antidepressants and marijuana 3. Volume overload, improved 4. Hypertension with blood pressure low on admission, currently stable 5. New onset A. fib with RVR. Heart rate now controlled and maintained on oral amiodarone Plan: continue with oral Lasix Replace potassium
[2024-08-08 11:53] LABS: African American GFR (CKD) >90 (>60 ml/min/1.73 sqM); Anion Gap 9 mmol/L; Blood Urea Nitrogen 27 mg/dL (9-20); Calcium 9.1 mg/dL (8.4-10.2); Carbon Dioxide 30 mmol/L (22-30); Chloride 100 mmol/L (98-107); Glucose 137 mg/dL (74-99); Non-African American GFR(CKD) >90 (>60 ml/min/1.73 sqM); Potassium 3.3 mmol/L (3.5-5.1); Sodium 139 mmol/L (137-145)
[2024-08-08] MEDS: APIXABAN 5 MG TAB PO SCH (12:06)
[2024-08-08] MEDS: POTASSIUM CHLORIDE ER 20 MEQ TAB.ER PO STA (12:06)
--- NOTE | 2024-08-08 12:31 | P.PN ---
Subjective HISTORY OF PRESENT ILLNESS: This is a 54-year-old male who is admitted to the hospital secondary to congestive heart failure and acute kidney injury. Patient was initially started on IV diuretics and has since been transition to oral diuretics. Kidney function today stable at 0.92. Patient underwent echocardiogram revealing ejection fraction 45 to 50%. Echo was technically difficult study and valvular function was not assessed. Patient went into A-fib with RVR overnight. He was started on IV amiodarone. He remains in atrial fibrillation this morning with a heart rate around 100. Patient was scheduled to undergo Lexiscan stress test this morning however someone gave the patient breakfast. Patient currently denies chest pain or pressure. She denies shortness of breath. He remains on IV heparin. 08/08/2024 Patient examined this morning at the bedside. Patient currently denies chest pain or pressure. He denies shortness of breath. Patient remains on IV heparin. Patient was scheduled to undergo Lexiscan stress test this morning however this was canceled as the patient was unable to lay flat for the test. Vital signs are stable. Telemetry reveals atrial fibrillation with controlled ventricular rate Patient underwent ultrasound of his left leg revealing a 5.1 cm hyperemic hypoechoic nodule. Abscess is in differential diagnosis. Orthopedics has evaluated the patient for chronic low back pain and spondylosis. No emergent orthopedic surgical intervention is recommended. PHYSICAL EXAM: VITAL SIGNS: Reviewed. GENERAL: Well-developed in no acute distress. NECK: Supple. No JVD or thyromegaly LUNGS: Respirations even and unlabored. Lungs essentially clear to auscultation bilaterally. HEART: Irregular rate and rhythm. S1 and S2 heard. EXTREMITIES: Normal range of motion. No clubbing or cyanosis. Peripheral pulses intact. No lower extremity edema ASSESSMENT: Acute congestive heart failure with mildly reduced EF 45 to 50% Acute kidney injury, resolved New onset atrial fibrillation with RVR Mild cardiomyopathy, 45%, ischemic versus nonischemic Hypertension Hyperlipidemia Nicotine dependence, patient reports smoking 3 packs/day Morbid obesity: BMI 40.3 PLAN: Patient unable to tolerate laying flat for Lexiscan stress test today. Nephrology following. Continue oral diuretics. Continue oral amiodarone. Taper at discharge includes 200 mg twice a day for 1 week then decrease to 200 mg daily. Continue additional cardiac medications Discontinue IV heparin. Begin oral anticoagulation Patient may be discharged home today from a cardiac standpoint Further ischemic workup to be performed on an outpatient basis. Patient to follow-up postdischarge with Dr. Feng Nurse practitioner note has been reviewed by physician. Signing provider agrees with the documented findings, assessment, and plan of care documented by MANDARIN TEACHER as a scribe. Objective - Vital Signs Vital signs: Vital Signs Temp 97.4 F L 08/07/24 20:18 Pulse 80 08/08/24 08:12 Resp 18 08/08/24 04:00 BP 128/64 08/08/24 04:00 Pulse Ox 94 L 08/08/24 04:00 FiO2 Intake & Output 08/07/24 08/08/24 08/08/24 18:59 06:59 18:59 Intake Total 840 582.349 Balance 840 582.349 Weight 149.4 kg Intake: Intake, IV Titration 582.349 Amount Amiodarone 450 mg In 250 Dextrose 5% in Water 250 ml @ 0.5 MG/MIN 16.667 mls/hr IV .Q15H [facility] Rx#: [id number] Heparin Sod,Pork in 0.45% 332.349 NaCl 25,000 unit In 0.45 % NaCl 1 250ml.bag @ 6.57 UNITS/KG/HR 10.006 mls/ hr IV .Q24H [facility] Rx#: [id number] Oral 840 Other: Voiding Method Toilet # Voids 1 # Bowel Movements 1 - Labs CBC & Chem 7: 08/07/24 06:01 08/08/24 11:07 Labs: Abnormal Lab Results - Last 24 Hours (Table) 08/07/24 08/07/24 08/08/24 Range/Units 16:25 20:28 06:16 POC Glucose (mg/dL) 144 H 151 H 172 H (70-110) mg/dL
[2024-08-08 16:37] LABS: Glucose,Whole Blood 149 mg/dL (70-110)
[2024-08-08 20:06] LABS: Glucose,Whole Blood 173 mg/dL (70-110)
[2024-08-09 06:03] LABS: Glucose,Whole Blood 140 mg/dL (70-110)
[2024-08-09 06:40] LABS: Basophils # (A) 0.1 k/uL (0-0.2); Basophils % (A) 1 %; Eosinophils # (A) 0.1 k/uL (0-0.7); Eosinophils % (A) 0 %; HCT 48.8 % (39.0-53.0); HGB 15.7 gm/dL (13.0-17.5); Lymphocytes # (A) 2.3 k/uL (1.0-4.8); Lymphocytes % (A) 13 %; MCH 31.3 pg (25.0-35.0); MCHC 32.1 g/dL (31.0-37.0); MCV 97.6 fL (80.0-100.0); Mean Platelet Volume 8.8; Monocytes % (A) 6 %; Neutrophils # (A) 13.8 k/uL (1.3-7.7); Neutrophils % (A) 79 %; Platelet Count 305 k/uL (150-450); WBC 17.6 k/uL (3.8-10.6)
[2024-08-09 06:56] LABS: African American GFR (CKD) >90 (>60 ml/min/1.73 sqM); Anion Gap 10 mmol/L; Blood Urea Nitrogen 27 mg/dL (9-20); Calcium 9.2 mg/dL (8.4-10.2); Carbon Dioxide 29 mmol/L (22-30); Chloride 97 mmol/L (98-107); Glucose 143 mg/dL (74-99); Non-African American GFR(CKD) 89 (>60 ml/min/1.73 sqM); Potassium 3.6 mmol/L (3.5-5.1); Sodium 136 mmol/L (137-145)
[2024-08-09 11:01] LABS: Glucose,Whole Blood 190 mg/dL (70-110)
[2024-08-09] MEDS: DIGOXIN 250 MCG/ML 2 ML AMP IVP ONE (11:06)
[2024-08-09] MEDS: POTASSIUM CHLORIDE ER 20 MEQ TAB.ER PO STA (11:06)
[2024-08-09 11:19] VITALS: BMI 41.8
--- NOTE | 2024-08-09 11:52 | P.PN ---
Subjective HISTORY OF PRESENT ILLNESS: This is a 54-year-old male who is admitted to the hospital secondary to congestive heart failure and acute kidney injury. Patient was initially started on IV diuretics and has since been transition to oral diuretics. Kidney function today stable at 0.92. Patient underwent echocardiogram revealing ejection fraction 45 to 50%. Echo was technically difficult study and valvular function was not assessed. Patient went into A-fib with RVR overnight. He was started on IV amiodarone. He remains in atrial fibrillation this morning with a heart rate around 100. Patient was scheduled to undergo Lexiscan stress test this morning however someone gave the patient breakfast. Patient currently denies chest pain or pressure. She denies shortness of breath. He remains on IV heparin. 08/08/2024 Patient examined this morning at the bedside. Patient currently denies chest pain or pressure. He denies shortness of breath. Patient remains on IV heparin. Patient was scheduled to undergo Lexiscan stress test this morning however this was canceled as the patient was unable to lay flat for the test. Vital signs are stable. Telemetry reveals atrial fibrillation with controlled ventricular rate Patient underwent ultrasound of his left leg revealing a 5.1 cm hyperemic hypoechoic nodule. Abscess is in differential diagnosis. Orthopedics has evaluated the patient for chronic low back pain and spondylosis. No emergent orthopedic surgical intervention is recommended. 08/09/2024 Patient examined this morning the bedside. Patient currently denies chest pain or pressure. He denies shortness of breath. This morning patient's heart rates are uncontrolled in the 130s. He remains in atrial fibrillation. Blood pressures are soft. PHYSICAL EXAM: VITAL SIGNS: Reviewed. GENERAL: Well-developed in no acute distress. NECK: Supple. No JVD or thyromegaly LUNGS: Respirations even and unlabored. Lungs essentially clear to auscultation bilaterally. HEART: Irregular rate and rhythm. S1 and S2 heard. EXTREMITIES: Normal range of motion. No clubbing or cyanosis. Peripheral pulses intact. No lower extremity edema ASSESSMENT: Acute congestive heart failure with mildly reduced EF 45 to 50% Acute kidney injury, resolved New onset atrial fibrillation with RVR Mild cardiomyopathy, 45%, ischemic versus nonischemic Hypertension Hyperlipidemia Nicotine dependence, patient reports smoking 3 packs/day Morbid obesity: BMI 40.3 PLAN: Patient unable to tolerate laying flat for Lexiscan stress test yesterday. Further ischemic workup to be performed on an outpatient basis. Nephrology following. Continue oral diuretics. Continue oral amiodarone. Taper at discharge includes 200 mg twice a day for 1 week then decrease to 200 mg daily. Continue current dose of metoprolol titrate 50 mg twice a day Give digoxin 250 mcg IV push x 1 followed by 250 mg oral daily starting tomorrow Continue telemetry monitoring Patient to follow-up postdischarge with Dr. Feng Nurse practitioner note has been reviewed by physician. Signing provider agrees with the documented findings, assessment, and plan of care documented by METER CALIBRATOR as a scribe. Objective - Vital Signs Vital signs: Vital Signs Temp 97.7 F 08/09/24 09:05 Pulse 76 08/09/24 11:20 Resp 18 08/09/24 09:05 BP 99/75 08/09/24 09:05 Pulse Ox 93 L 08/09/24 09:05 FiO2 Intake & Output 08/08/24 08/09/24 08/09/24 18:59 06:59 18:59 Intake Total 350 40 300 Output Total 200 Balance 150 40 300 Weight 148 kg 148 kg Intake: Oral 350 40 300 Output: Urine 200 Other: Voiding Method Toilet Toilet Toilet # Voids 1 - Labs CBC & Chem 7: 08/09/24 06:10 08/09/24 06:10 Labs: Abnormal Lab Results - Last 24 Hours (Table) 08/08/24 08/08/24 08/08/24 Range/Units 11:07 16:36 20:04 WBC (3.8-10.6) k/uL Neutrophils # (1.3-7.7) k/uL Sodium (137-145) mmol/L Potassium 3.3 L (3.5-5.1) mmol/L Chloride (98-107) mmol/L BUN 27 H (9-20) mg/dL Glucose 137 H (74-99) mg/dL POC Glucose (mg/dL) 149 H 173 H (70-110) mg/dL 08/09/24 08/09/24 08/09/24 Range/Units 06:01 06:10 06:10 WBC 17.6 H (3.8-10.6) k/uL Neutrophils # 13.8 H (1.3-7.7) k/uL Sodium 136 L (137-145) mmol/L Potassium (3.5-5.1) mmol/L Chloride 97 L (98-107) mmol/L BUN 27 H (9-20) mg/dL Glucose 143 H (74-99) mg/dL POC Glucose (mg/dL) 140 H (70-110) mg/dL 08/09/24 Range/Units 10:59 WBC (3.8-10.6) k/uL Neutrophils # (1.3-7.7) k/uL Sodium (137-145) mmol/L Potassium (3.5-5.1) mmol/L Chloride (98-107) mmol/L BUN (9-20) mg/dL Glucose (74-99) mg/dL POC Glucose (mg/dL) 190 H (70-110) mg/dL
[2024-08-09] MEDS: oxyCODONE-APAP 10-325MG 1 EACH TAB PO PRN (15:20)
[2024-08-09 16:41] LABS: Glucose,Whole Blood 143 mg/dL (70-110)
[2024-08-09] MEDS: oxyCODONE ER 10 MG TAB.ER.12H PO SCH (18:05)
[2024-08-09 19:49] LABS: Glucose,Whole Blood 121 mg/dL (70-110)
[2024-08-10 06:10] LABS: Glucose,Whole Blood 148 mg/dL (70-110)
[2024-08-10] MEDS: DIGOXIN 250 MCG TAB PO SCH (08:58)
[2024-08-10] MEDS: METOPROLOL TARTRATE 25 MG TAB PO STA (09:28)
--- NOTE | 2024-08-10 10:47 | P.PN ---
Subjective patient is seen for follow-up for acute kidney injury. Renal function has improved significantly. Serum creatinine decreased to 0.9 yesterday. Potassium was 3.6. Patient reports good urine output. He is maintained on oral Lasix Objective - Vital Signs Vital signs: Vital Signs Temp 97.8 F 08/10/24 09:00 Pulse 96 08/10/24 09:00 Resp 19 08/10/24 09:00 BP 123/81 08/10/24 09:00 Pulse Ox 92 L 08/10/24 09:00 FiO2 Intake & Output 08/09/24 08/10/24 08/10/24 18:59 06:59 18:59 Intake Total 1150 540 Balance 1150 540 Weight 148 kg 148.2 kg Intake: Oral 1150 540 Other: Voiding Method Toilet Toilet Toilet # Voids 0 # Bowel Movements 0 - Exam patient is awake, comfortable, in no acute distress. patient is on the commode Examination of lower extremities shows no significant edema DELI COOK exam grossly intact - Labs CBC & Chem 7: 08/09/24 06:10 08/09/24 06:10 Labs: Abnormal Lab Results - Last 24 Hours (Table) 08/09/24 08/09/24 08/09/24 Range/Units 10:59 16:40 19:48 POC Glucose (mg/dL) 190 H 143 H 121 H (70-110) mg/dL 08/10/24 Range/Units 06:08 POC Glucose (mg/dL) 148 H (70-110) mg/dL Assessment and Plan Assessment: 1. Acute kidney injury ATN, nonoliguric secondary to hypotension, NSAIDs in the setting of use of angiotensin receptor blockers. Currently being diuresed for volume overload. UA is benign. Gamez catheter was removed. 2. Mental status changes possibly related to pain meds. improved. Drug screen was positive for opiates, tricyclic antidepressants and marijuana 3. Volume overload, improved 4. Hypertension with blood pressure low on admission, currently stable 5. New onset A. fib with RVR. Heart rate now controlled and maintained on oral amiodarone Plan: continue with oral Lasix
[2024-08-10 11:23] LABS: Basophils # (A) 0.1 k/uL (0-0.2); Basophils % (A) 1 %; Eosinophils # (A) 0.2 k/uL (0-0.7); Eosinophils % (A) 1 %; HCT 46.2 % (39.0-53.0); HGB 14.9 gm/dL (13.0-17.5); Lymphocytes # (A) 2.2 k/uL (1.0-4.8); Lymphocytes % (A) 14 %; MCH 31.1 pg (25.0-35.0); MCHC 32.3 g/dL (31.0-37.0); MCV 96.1 fL (80.0-100.0); Monocytes # (A) 0.8 k/uL (0-1.0); Monocytes % (A) 5 %; Neutrophils # (A) 12.6 k/uL (1.3-7.7); Neutrophils % (A) 79 %; Platelet Count 285 k/uL (150-450); RDW 14.4 % (11.5-15.5)
[2024-08-10 11:34] LABS: Glucose,Whole Blood 150 mg/dL (70-110)
[2024-08-10 11:39] LABS: African American GFR (CKD) >90 (>60 ml/min/1.73 sqM); Anion Gap 10 mmol/L; Blood Urea Nitrogen 27 mg/dL (9-20); Calcium 8.5 mg/dL (8.4-10.2); Carbon Dioxide 31 mmol/L (22-30); Chloride 94 mmol/L (98-107); Glucose 146 mg/dL (74-99); Non-African American GFR(CKD) 83 (>60 ml/min/1.73 sqM); Potassium 3.7 mmol/L (3.5-5.1); Sodium 135 mmol/L (137-145)
--- NOTE | 2024-08-10 13:38 | P.PN ---
Subjective HISTORY OF PRESENT ILLNESS: This is a 54-year-old male who is admitted to the hospital secondary to congestive heart failure and acute kidney injury. Patient was initially started on IV diuretics and has since been transition to oral diuretics. Kidney function today stable at 0.92. Patient underwent echocardiogram revealing ejection fraction 45 to 50%. Echo was technically difficult study and valvular function was not assessed. Patient went into A-fib with RVR overnight. He was started on IV amiodarone. He remains in atrial fibrillation this morning with a heart rate around 100. Patient was scheduled to undergo Lexiscan stress test this morning however someone gave the patient breakfast. Patient currently denies chest pain or pressure. She denies shortness of breath. He remains on IV heparin. 08/08/2024 Patient examined this morning at the bedside. Patient currently denies chest pain or pressure. He denies shortness of breath. Patient remains on IV heparin. Patient was scheduled to undergo Lexiscan stress test this morning however this was canceled as the patient was unable to lay flat for the test. Vital signs are stable. Telemetry reveals atrial fibrillation with controlled ventricular rate Patient underwent ultrasound of his left leg revealing a 5.1 cm hyperemic hypoechoic nodule. Abscess is in differential diagnosis. Orthopedics has evaluated the patient for chronic low back pain and spondylosis. No emergent orthopedic surgical intervention is recommended. 08/09/2024 Patient examined this morning the bedside. Patient currently denies chest pain or pressure. He denies shortness of breath. This morning patient's heart rates are uncontrolled in the 130s. He remains in atrial fibrillation. Blood pressures are soft. 08/10/2024 Patient examined this morning the bedside. Patient currently denies chest pain or pressure. He denies shortness of breath. Patient remains in atrial fibrillation this morning with a heart rate in the 120s. Blood pressure is improved today with a reading of 123/83 this morning. PHYSICAL EXAM: VITAL SIGNS: Reviewed. GENERAL: Well-developed in no acute distress. NECK: Supple. No JVD or thyromegaly LUNGS: Respirations even and unlabored. Lungs essentially clear to auscultation bilaterally. HEART: Tachycardic irregular rate and rhythm. S1 and S2 heard. EXTREMITIES: Normal range of motion. No clubbing or cyanosis. Peripheral pulses intact. No lower extremity edema ASSESSMENT: Acute congestive heart failure with mildly reduced EF 45 to 50% Acute kidney injury, resolved New onset atrial fibrillation with RVR Mild cardiomyopathy, 45%, ischemic versus nonischemic Hypertension Hyperlipidemia Nicotine dependence, patient reports smoking 3 packs/day Morbid obesity: BMI 40.3 PLAN: Patient unable to tolerate laying flat for Lexiscan stress test. Further ischemic workup to be performed on an outpatient basis. Nephrology following. Continue oral diuretics. Continue oral amiodarone. Taper at discharge includes 200 mg twice a day for 1 week then decrease to 200 mg daily. Continue oral digoxin Increase metoprolol to 75 mg twice a day Continue telemetry monitoring Patient to follow-up postdischarge with Dr. Feng Nurse practitioner note has been reviewed by physician. Signing provider agrees with the documented findings, assessment, and plan of care documented by SENIOR PROGRAM ANALYST as a scribe. Objective - Vital Signs Vital signs: Vital Signs Temp 97.8 F 08/10/24 09:00 Pulse 90 08/10/24 12:12 Resp 17 08/10/24 12:00 BP 108/69 08/10/24 12:00 Pulse Ox 93 L 08/10/24 12:00 FiO2 Intake & Output 08/09/24 08/10/24 08/10/24 18:59 06:59 18:59 Intake Total 1150 540 472 Balance 1150 540 472 Weight 148 kg 148.2 kg Intake: Oral 1150 540 472 Other: Voiding Method Toilet Toilet Toilet # Voids 0 1 # Bowel Movements 0 - Labs CBC & Chem 7: 08/10/24 11:12 08/10/24 11:12 Labs: Abnormal Lab Results - Last 24 Hours (Table) 08/09/24 08/09/24 08/10/24 Range/Units 16:40 19:48 06:08 WBC (3.8-10.6) k/uL Neutrophils # (1.3-7.7) k/uL Sodium (137-145) mmol/L Chloride (98-107) mmol/L Carbon Dioxide (22-30) mmol/L BUN (9-20) mg/dL Glucose (74-99) mg/dL POC Glucose (mg/dL) 143 H 121 H 148 H (70-110) mg/dL 08/10/24 08/10/24 08/10/24 Range/Units 11:12 11:12 11:33 WBC 16.0 H (3.8-10.6) k/uL Neutrophils # 12.6 H (1.3-7.7) k/uL Sodium 135 L (137-145) mmol/L Chloride 94 L (98-107) mmol/L Carbon Dioxide 31 H (22-30) mmol/L BUN 27 H (9-20) mg/dL Glucose 146 H (74-99) mg/dL POC Glucose (mg/dL) 150 H (70-110) mg/dL
[2024-08-10 16:31] LABS: Glucose,Whole Blood 112 mg/dL (70-110)
[2024-08-10 17:52] LABS: Glucose,Whole Blood 143 mg/dL (70-110)
[2024-08-10 19:54] LABS: Glucose,Whole Blood 131 mg/dL (70-110)
[2024-08-10] MEDS: METOPROLOL TARTRATE 25 MG TAB PO SCH (21:00)
--- NOTE | 2024-08-10 22:19 | P.PN ---
Subjective Progress Note Date: 08/08/24 This is a pleasant 54 years old male with past medical history of multiple medical problems Patient states he does not remember why he is in the hospital As per documented staff patient presents because of altered mental status. Patient this morning he is stating his main concern is his chronic low back pain and he is asking for his Percocet which he takes at home otherwise he will leave AMA. Patient referring to his oxycodone ER 10 mg Twice daily, as well as Percocet 10 mg every 6 hours, I explained for the patient the risk and benefits of this medication including but not limited to the risk of respiratory depression and/or , Patient however denies specific symptoms, no abdominal pain vomiting diarrhea, no dysuria or urgency. No chest pain dyspnea or coughing. No headache dizziness weakness or numbness Patient states that he fell 2 days ago when he slipped on the rainy weather Also states that he smokes 3 packs/day and he was counseled to quit and he agrees and wants the nicotine patch but denies alcohol. Patient states that he uses marijuana sometimes Patient is afebrile, he is mildly tachycardic and tachypneic. He was saturating 95% on 2 L oxygen Labs reviewed WBC 14,020 1000 but he has chronic leukocytosis INR 0.9 Troponin is -0.015 Urine analysis is negative TSH 0.8 Ammonia level is negative at 29 Urine drug screen is positive for oxycodone, TCA and marijuana EKG showing sinus rhythm with tachycardia at [address]-T changes CT of the brain is negative Chest x-ray showing cardiomegaly with mild pulmonary vascular congestion No recent echocardiogram, ejection fraction from 2018 was 55 to 60% 08/06 Patient is awake alert He is complaining from severe low back pain. He is adamant to restart his Percocet 10-325 mg every 6 hours as needed on the top of 10 mg of OxyContin twice daily which are his home medication. Risks including but not limited to the respiratory depression and/or I explained to him and he still wants his pain medication Patient states that he was taking this pain medication for his fibromyalgia however about 3 days ago he was moving the chair in his kitchen when he slipped and fell on his face and the back, states he was rolling when he fell and since then he is having severe low back pain. He states pain was not that severe before he falls however patient denies new weakness or tingling or numbness in his lower extremities. He could walk to the restroom. He is planning to get a shower today with the help of his staff Other than that his creatinine improved significantly down to 1.4, his IV Lasix twice daily switched to oral dose Losartan remains on hold. Naproxen was one of his home medication listed however patient denies taking this medication, however he was counseled against using NSAIDs like Motrin, ibuprofen or Naprosyn Echocardiogram showing ejection fraction of 45 to 50% Renal ultrasound showing no obstructive uropathy Lumbar x-ray ordered today showing no fracture or dislocation and good alignment Labs showing improving leukocytosis at 15.3 but this is a chronic problem. Creatinine significantly improved down to 1.4 08/07 Patient was supposed to get stress test today however he ate so it was postponed till tomorrow No Gamez catheter, no urinary complaints No other new complaint Creatinine improved down to normal at 0.9 Patient still insisting on getting all his pain medication of Percocet 10 mg as well as longer acting OxyContin He remains on heparin drip We will check ultrasound of the thigh to rule out residual abscess. Given his leukocytosis which is also is chronic 08/08/2024 Patient is resting in the bed. Awake alert and oriented x 3. No complaints of chest pain. Shortness of breath did improve. Mentation is also improving. Patient does have good urine output. Patient is being diuresed with Lasix. Changed to by mouth. Gamez catheter have been removed. Laboratory data showed sodium 139 potassium 3.3 chloride 100 bicarb is 30 BUN 27 creatinine 0.85 blood sugar is 137 and calcium 9.1. Nephrology and cardiology is on board. Patient is unable to lie flat for Lexiscan stress test today. Patient is on amiodarone and also started on oral anticoagulation. EKG this morning showed atrial fibrillation with rapid ventricular rate with heart rate of 147. Cardiology is on board. Ultrasound left lower extremity showed 5.1 cm hyperemic hypoechoic nodule. Palpable abnormality is nonspecific. Abscess in the differential diagnosis. Current medications reviewed. Objective - Vital Signs Vital signs: Vital Signs Temp 97.5 F L 08/08/24 08:15 Pulse 76 08/08/24 11:34 Resp 17 08/08/24 08:15 BP 101/74 08/08/24 08:15 Pulse Ox 94 L 11/26/24 08:15 FiO2 Intake & Output 08/07/24 08/08/24 08/08/24 18:59 06:59 18:59 Intake Total 840 582.349 Balance 840 582.349 Weight 149.4 kg Intake: Intake, IV Titration 582.349 Amount Amiodarone 450 mg In 250 Dextrose 5% in Water 250 ml @ 0.5 MG/MIN 16.667 mls/hr IV .Q15H [facility] Rx#: [id number] Heparin Sod,Pork in 0.45% 332.349 NaCl 25,000 unit In 0.45 % NaCl 1 250ml.bag @ 6.57 UNITS/KG/HR 10.006 mls/ hr IV .Q24H UZIEL Rx#: [id number] Oral 840 Other: Voiding Method Toilet Toilet # Voids 1 # Bowel Movements 1 - Exam - Exam -GENERAL: The patient is alert and oriented x3, not in any acute distress. Well developed, well nourished. Obese HEENT: Pupils are round and equally reacting to light. EOMI. No scleral icterus. No conjunctival pallor. Normocephalic, atraumatic. No pharyngeal erythema. No thyromegaly. CARDIOVASCULAR: S1 and S2 present. No murmurs, rubs, or gallops. PULMONARY: Chest is clear to auscultation, no wheezing , no crackles. ABDOMEN: Soft, nontender, nondistended, normoactive bowel sounds. No palpable organomegaly. MUSCULOSKELETAL: No joint swelling or deformity. -EXTREMITIES: No cyanosis, clubbing, or pedal edema. Posterior thigh with area of discoloration at the area of recent drained abscess NEUROLOGICAL: Gross neurological examination did not reveal any focal deficits. SKIN: No rashes. no petechiae. - Labs CBC & Chem 7: 08/10/24 11:12 08/10/24 11:12 Labs: Abnormal Lab Results - Last 24 Hours (Table) 08/07/24 08/07/24 08/08/24 Range/Units 16:25 20:28 06:16 APTT (22.0-30.0) sec Potassium (3.5-5.1) mmol/L BUN (9-20) mg/dL Glucose (74-99) mg/dL POC Glucose (mg/dL) 144 H 151 H 172 H (70-110) mg/dL 08/08/24 08/08/24 08/08/24 Range/Units 11:07 11:07 11:17 APTT 30.8 H (22.0-30.0) sec Potassium 3.3 L (3.5-5.1) mmol/L BUN 27 H (9-20) mg/dL Glucose 137 H (74-99) mg/dL POC Glucose (mg/dL) 120 H (70-110) mg/dL Assessment and Plan Assessment: -Altered mental status, present on admission. Most likely metabolic/toxic encephalopathy, including renal failure's and narcotic use. Improving. -Acute kidney injury on chronic kidney disease stage 2 -Fall at home 3 days prior to hospitalization without syncope with resultant severe low back pain with no evidence of fracture on the x-ray -New onset atrial fibrillation with Ventricular response. -Acute CHF with mild pulmonary congestion. Old echocardiogram showing EF 55 45- 50 % -COPD; not in exacerbation -Recent history of left thigh abscess -Hypertension -Chronic back pain -Chronic leukocytosis -Obesity with BMI of 38 Plan: Patient is unable to lie flat for the stress test. Patient will be continued on amiodarone and also started on anticoagulation with Eliquis. Heparin IV has been discontinued. Oxycodone ER already been ordered. Percocet resumed at home dose open patient request and insistence I talked to the patient about resuming the rest of the pain medication, he was adamant to resume it although the risk of respiratory depression and/or are explained to him, however he agrees to start smaller dose of Percocet 5 mg instead of 10 with close monitoring switched IV Lasix to oral dose Patient was seen by orthopedic surgery recommends conservative measures at this time. Nonemergent orthopedic surgical intervention is recommended at this time. No Gamez catheter Continue with cardiac medication Hold losartan and naproxen Nephrology and cardiology on board. Pain management consult Labs and medication were reviewed.. Monitor labs and vitals. DVT and GI prophylaxis. Further recommendations as per clinical course of the patient DVT prophylaxis: On full anticoagulation GI Prophylaxis: Pepcid Prognosis is guarded Time with Patient: Greater than 30
--- NOTE | 2024-08-10 22:23 | P.PN ---
Subjective Progress Note Date: 08/09/24 This is a pleasant 54 years old male with past medical history of multiple medical problems Patient states he does not remember why he is in the hospital As per documented staff patient presents because of altered mental status. Patient this morning he is stating his main concern is his chronic low back pain and he is asking for his Percocet which he takes at home otherwise he will leave AMA. Patient referring to his oxycodone ER 10 mg Twice daily, as well as Percocet 10 mg every 6 hours, I explained for the patient the risk and benefits of this medication including but not limited to the risk of respiratory depression and/or , Patient however denies specific symptoms, no abdominal pain vomiting diarrhea, no dysuria or urgency. No chest pain dyspnea or coughing. No headache dizziness weakness or numbness Patient states that he fell 2 days ago when he slipped on the rainy weather Also states that he smokes 3 packs/day and he was counseled to quit and he agrees and wants the nicotine patch but denies alcohol. Patient states that he uses marijuana sometimes Patient is afebrile, he is mildly tachycardic and tachypneic. He was saturating 95% on 2 L oxygen Labs reviewed WBC 14,020 1000 but he has chronic leukocytosis INR 0.9 Troponin is -0.015 Urine analysis is negative TSH 0.8 Ammonia level is negative at 29 Urine drug screen is positive for oxycodone, TCA and marijuana EKG showing sinus rhythm with tachycardia at [address]-T changes CT of the brain is negative Chest x-ray showing cardiomegaly with mild pulmonary vascular congestion No recent echocardiogram, ejection fraction from 2018 was 55 to 60% 08/06 Patient is awake alert He is complaining from severe low back pain. He is adamant to restart his Percocet 10-325 mg every 6 hours as needed on the top of 10 mg of OxyContin twice daily which are his home medication. Risks including but not limited to the respiratory depression and/or I explained to him and he still wants his pain medication Patient states that he was taking this pain medication for his fibromyalgia however about 3 days ago he was moving the chair in his kitchen when he slipped and fell on his face and the back, states he was rolling when he fell and since then he is having severe low back pain. He states pain was not that severe before he falls however patient denies new weakness or tingling or numbness in his lower extremities. He could walk to the restroom. He is planning to get a shower today with the help of his staff Other than that his creatinine improved significantly down to 1.4, his IV Lasix twice daily switched to oral dose Losartan remains on hold. Naproxen was one of his home medication listed however patient denies taking this medication, however he was counseled against using NSAIDs like Motrin, ibuprofen or Naprosyn Echocardiogram showing ejection fraction of 45 to 50% Renal ultrasound showing no obstructive uropathy Lumbar x-ray ordered today showing no fracture or dislocation and good alignment Labs showing improving leukocytosis at 15.3 but this is a chronic problem. Creatinine significantly improved down to 1.4 08/07 Patient was supposed to get stress test today however he ate so it was postponed till tomorrow No Gamez catheter, no urinary complaints No other new complaint Creatinine improved down to normal at 0.9 Patient still insisting on getting all his pain medication of Percocet 10 mg as well as longer acting OxyContin He remains on heparin drip We will check ultrasound of the thigh to rule out residual abscess. Given his leukocytosis which is also is chronic 08/08/2024 Patient is resting in the bed. Awake alert and oriented x 3. No complaints of chest pain. Shortness of breath did improve. Mentation is also improving. Patient does have good urine output. Patient is being diuresed with Lasix. Changed to by mouth. Gamez catheter have been removed. Laboratory data showed sodium 139 potassium 3.3 chloride 100 bicarb is 30 BUN 27 creatinine 0.85 blood sugar is 137 and calcium 9.1. Nephrology and cardiology is on board. Patient is unable to lie flat for Lexiscan stress test today. Patient is on amiodarone and also started on oral anticoagulation. EKG this morning showed atrial fibrillation with rapid ventricular rate with heart rate of 147. Cardiology is on board. Ultrasound left lower extremity showed 5.1 cm hyperemic hypoechoic nodule. Palpable abnormality is nonspecific. Abscess in the differential diagnosis. 08/09/2024 Patient is sitting in the seat today. Awake alert and oriented x 3. No complaints of chest pain or shortness of breath. Heart rate is still elevated. Patient is on amiodarone, metoprolol. Digoxin was added. Patient is also on anticoagulation with Eliquis. Otherwise patient is tolerating oral diet. Renal function improved with creatinine level of 0.97 today. Other laboratory data showed WBC 17.6 hemoglobin 15.7 and platelets 305 Sodium 136 potassium 3.6 chloride 97 bicarb is 29 BUN 27 creatinine 0.97 and blood sugar is 143. Calcium 9.2. Current medications reviewed. Objective - Vital Signs Vital signs: Vital Signs Temp 98.0 F 08/10/24 20:10 Pulse 112 H 08/10/24 21:20 Resp 18 08/10/24 20:10 BP 124/74 08/10/24 20:10 Pulse Ox 94 L 08/10/24 20:10 FiO2 Intake & Output 08/10/24 08/10/24 08/11/24 06:59 18:59 06:59 Intake Total 540 1366 Balance 540 1366 Weight 148.2 kg Intake: Oral 540 1366 Other: Voiding Method Toilet Toilet Toilet # Voids 1 - Exam - Exam -GENERAL: The patient is alert and oriented x3, not in any acute distress. Well developed, well nourished. Obese HEENT: Pupils are round and equally reacting to light. EOMI. No scleral icterus. No conjunctival pallor. Normocephalic, atraumatic. No pharyngeal erythema. No thyromegaly. CARDIOVASCULAR: S1 and S2 present. No murmurs, rubs, or gallops. PULMONARY: Chest is clear to auscultation, no wheezing , no crackles. ABDOMEN: Soft, nontender, nondistended, normoactive bowel sounds. No palpable organomegaly. MUSCULOSKELETAL: No joint swelling or deformity. -EXTREMITIES: No cyanosis, clubbing, or pedal edema. Posterior thigh with area of discoloration at the area of recent drained abscess NEUROLOGICAL: Gross neurological examination did not reveal any focal deficits. SKIN: No rashes. no petechiae. - Labs CBC & Chem 7: 08/10/24 11:12 08/10/24 11:12 Labs: Abnormal Lab Results - Last 24 Hours (Table) 08/10/24 08/10/24 08/10/24 Range/Units 06:08 11:12 11:12 WBC 16.0 H (3.8-10.6) k/uL Neutrophils # 12.6 H (1.3-7.7) k/uL Sodium 135 L (137-145) mmol/L Chloride 94 L (98-107) mmol/L Carbon Dioxide 31 H (22-30) mmol/L BUN 27 H (9-20) mg/dL Glucose 146 H (74-99) mg/dL POC Glucose (mg/dL) 148 H (70-110) mg/dL 08/10/24 08/10/24 08/10/24 Range/Units 11:33 16:29 17:51 WBC (3.8-10.6) k/uL Neutrophils # (1.3-7.7) k/uL Sodium (137-145) mmol/L Chloride (98-107) mmol/L Carbon Dioxide (22-30) mmol/L BUN (9-20) mg/dL Glucose (74-99) mg/dL POC Glucose (mg/dL) 150 H 112 H 143 H (70-110) mg/dL 08/10/24 Range/Units 19:53 WBC (3.8-10.6) k/uL Neutrophils # (1.3-7.7) k/uL Sodium (137-145) mmol/L Chloride (98-107) mmol/L Carbon Dioxide (22-30) mmol/L BUN (9-20) mg/dL Glucose (74-99) mg/dL POC Glucose (mg/dL) 131 H (70-110) mg/dL Assessment and Plan Assessment: -Altered mental status, present on admission. Most likely metabolic/toxic encephalopathy, including renal failure's and narcotic use. Improving. -Acute kidney injury on chronic kidney disease stage 2 -Fall at home 3 days prior to hospitalization without syncope with resultant severe low back pain with no evidence of fracture on the x-ray -New onset atrial fibrillation with Ventricular response. -Acute CHF with mild pulmonary congestion. Old echocardiogram showing EF 55 45- 50 % -COPD; not in exacerbation -Recent history of left thigh abscess -Hypertension -Chronic back pain -Chronic leukocytosis -Obesity with BMI of 38 Plan: Patient is unable to lie flat for the stress test. Patient will be continued on metoprolol, amiodarone and also started on anticoagulation with Eliquis. Heparin IV has been discontinued. Patient was also started on digoxin. Oxycodone ER already been ordered. Percocet resumed at home dose open patient request and insistence I talked to the patient about resuming the rest of the pain medication, he was adamant to resume it although the risk of respiratory depression and/or are explained to him, however he agrees to start smaller dose of Percocet 5 mg instead of 10 with close monitoring switched IV Lasix to oral dose Patient was seen by orthopedic surgery recommends conservative measures at this time. Nonemergent orthopedic surgical intervention is recommended at this time. No Gamez catheter Continue with cardiac medication Hold losartan and naproxen Nephrology and cardiology on board. Pain management consult Labs and medication were reviewed.. Monitor labs and vitals. DVT and GI prophylaxis. Further recommendations as per clinical course of the patient DVT prophylaxis: On full anticoagulation GI Prophylaxis: Pepcid Prognosis is guarded Time with Patient: Greater than 30
--- NOTE | 2024-08-10 22:26 | P.PN ---
Subjective Progress Note Date: 08/10/24 This is a pleasant 54 years old male with past medical history of multiple medical problems Patient states he does not remember why he is in the hospital As per documented staff patient presents because of altered mental status. Patient this morning he is stating his main concern is his chronic low back pain and he is asking for his Percocet which he takes at home otherwise he will leave AMA. Patient referring to his oxycodone ER 10 mg Twice daily, as well as Percocet 10 mg every 6 hours, I explained for the patient the risk and benefits of this medication including but not limited to the risk of respiratory depression and/or , Patient however denies specific symptoms, no abdominal pain vomiting diarrhea, no dysuria or urgency. No chest pain dyspnea or coughing. No headache dizziness weakness or numbness Patient states that he fell 2 days ago when he slipped on the rainy weather Also states that he smokes 3 packs/day and he was counseled to quit and he agrees and wants the nicotine patch but denies alcohol. Patient states that he uses marijuana sometimes Patient is afebrile, he is mildly tachycardic and tachypneic. He was saturating 95% on 2 L oxygen Labs reviewed WBC 14,020 1000 but he has chronic leukocytosis INR 0.9 Troponin is -0.015 Urine analysis is negative TSH 0.8 Ammonia level is negative at 29 Urine drug screen is positive for oxycodone, TCA and marijuana EKG showing sinus rhythm with tachycardia at [address]-T changes CT of the brain is negative Chest x-ray showing cardiomegaly with mild pulmonary vascular congestion No recent echocardiogram, ejection fraction from 2018 was 55 to 60% 08/06 Patient is awake alert He is complaining from severe low back pain. He is adamant to restart his Percocet 10-325 mg every 6 hours as needed on the top of 10 mg of OxyContin twice daily which are his home medication. Risks including but not limited to the respiratory depression and/or I explained to him and he still wants his pain medication Patient states that he was taking this pain medication for his fibromyalgia however about 3 days ago he was moving the chair in his kitchen when he slipped and fell on his face and the back, states he was rolling when he fell and since then he is having severe low back pain. He states pain was not that severe before he falls however patient denies new weakness or tingling or numbness in his lower extremities. He could walk to the restroom. He is planning to get a shower today with the help of his staff Other than that his creatinine improved significantly down to 1.4, his IV Lasix twice daily switched to oral dose Losartan remains on hold. Naproxen was one of his home medication listed however patient denies taking this medication, however he was counseled against using NSAIDs like Motrin, ibuprofen or Naprosyn Echocardiogram showing ejection fraction of 45 to 50% Renal ultrasound showing no obstructive uropathy Lumbar x-ray ordered today showing no fracture or dislocation and good alignment Labs showing improving leukocytosis at 15.3 but this is a chronic problem. Creatinine significantly improved down to 1.4 08/07 Patient was supposed to get stress test today however he ate so it was postponed till tomorrow No Gamez catheter, no urinary complaints No other new complaint Creatinine improved down to normal at 0.9 Patient still insisting on getting all his pain medication of Percocet 10 mg as well as longer acting OxyContin He remains on heparin drip We will check ultrasound of the thigh to rule out residual abscess. Given his leukocytosis which is also is chronic 08/08/2024 Patient is resting in the bed. Awake alert and oriented x 3. No complaints of chest pain. Shortness of breath did improve. Mentation is also improving. Patient does have good urine output. Patient is being diuresed with Lasix. Changed to by mouth. Gamez catheter have been removed. Laboratory data showed sodium 139 potassium 3.3 chloride 100 bicarb is 30 BUN 27 creatinine 0.85 blood sugar is 137 and calcium 9.1. Nephrology and cardiology is on board. Patient is unable to lie flat for Lexiscan stress test today. Patient is on amiodarone and also started on oral anticoagulation. EKG this morning showed atrial fibrillation with rapid ventricular rate with heart rate of 147. Cardiology is on board. Ultrasound left lower extremity showed 5.1 cm hyperemic hypoechoic nodule. Palpable abnormality is nonspecific. Abscess in the differential diagnosis. 08/09/2024 Patient is sitting in the seat today. Awake alert and oriented x 3. No complaints of chest pain or shortness of breath. Heart rate is still elevated. Patient is on amiodarone, metoprolol. Digoxin was added. Patient is also on anticoagulation with Eliquis. Otherwise patient is tolerating oral diet. Renal function improved with creatinine level of 0.97 today. Other laboratory data showed WBC 17.6 hemoglobin 15.7 and platelets 305 Sodium 136 potassium 3.6 chloride 97 bicarb is 29 BUN 27 creatinine 0.97 and blood sugar is 143. Calcium 9.2. 08/10/2024 Patient is awake alert and oriented x 3. Was able to ambulate in the room. Left thigh pain is better. No complaints of chest pain or shortness breath. Patient has been afebrile. Heart rate remains in 120s this morning. Blood pressure is stable 120s. Metoprolol dose was increased to 75 mg twice daily. Cardiology is on board. Otherwise renal function is normalized. Laboratory pressure WBC trending down to 16.0 hemoglobin 14.9 and platelets 285, sodium 135 potassium 3.7 chloride 94 bicarb is 31 BUN 27 and creatinine 1.02 and blood sugar is 146. Current medications reviewed. Current medications reviewed. Objective - Vital Signs Vital signs: Vital Signs Temp 98.0 F 08/10/24 20:10 Pulse 112 H 08/10/24 21:20 Resp 18 08/10/24 20:10 BP 124/74 08/10/24 20:10 Pulse Ox 94 L 08/10/24 20:10 FiO2 Intake & Output 08/10/24 08/10/24 08/11/24 06:59 18:59 06:59 Intake Total 540 1366 Balance 540 1366 Weight 148.2 kg Intake: Oral 540 1366 Other: Voiding Method Toilet Toilet Toilet # Voids 1 - Exam - Exam -GENERAL: The patient is alert and oriented x3, not in any acute distress. Well developed, well nourished. Obese HEENT: Pupils are round and equally reacting to light. EOMI. No scleral icterus. No conjunctival pallor. Normocephalic, atraumatic. No pharyngeal erythema. No thyromegaly. CARDIOVASCULAR: S1 and S2 present. No murmurs, rubs, or gallops. PULMONARY: Chest is clear to auscultation, no wheezing , no crackles. ABDOMEN: Soft, nontender, nondistended, normoactive bowel sounds. No palpable organomegaly. MUSCULOSKELETAL: No joint swelling or deformity. -EXTREMITIES: No cyanosis, clubbing, or pedal edema. Posterior thigh with area of discoloration at the area of recent drained abscess NEUROLOGICAL: Gross neurological examination did not reveal any focal deficits. SKIN: No rashes. no petechiae. - Labs CBC & Chem 7: 08/10/24 11:12 08/10/24 11:12 Labs: Abnormal Lab Results - Last 24 Hours (Table) 08/10/24 08/10/24 08/10/24 Range/Units 06:08 11:12 11:12 WBC 16.0 H (3.8-10.6) k/uL Neutrophils # 12.6 H (1.3-7.7) k/uL Sodium 135 L (137-145) mmol/L Chloride 94 L (98-107) mmol/L Carbon Dioxide 31 H (22-30) mmol/L BUN 27 H (9-20) mg/dL Glucose 146 H (74-99) mg/dL POC Glucose (mg/dL) 148 H (70-110) mg/dL 08/10/24 08/10/24 08/10/24 Range/Units 11:33 16:29 17:51 WBC (3.8-10.6) k/uL Neutrophils # (1.3-7.7) k/uL Sodium (137-145) mmol/L Chloride (98-107) mmol/L Carbon Dioxide (22-30) mmol/L BUN (9-20) mg/dL Glucose (74-99) mg/dL POC Glucose (mg/dL) 150 H 112 H 143 H (70-110) mg/dL 08/10/24 Range/Units 19:53 WBC (3.8-10.6) k/uL Neutrophils # (1.3-7.7) k/uL Sodium (137-145) mmol/L Chloride (98-107) mmol/L Carbon Dioxide (22-30) mmol/L BUN (9-20) mg/dL Glucose (74-99) mg/dL POC Glucose (mg/dL) 131 H (70-110) mg/dL Assessment and Plan Assessment: -Altered mental status, present on admission. Most likely metabolic/toxic encephalopathy, including renal failure's and narcotic use. Improving. -Acute kidney injury on chronic kidney disease stage 2 -Fall at home 3 days prior to hospitalization without syncope with resultant severe low back pain with no evidence of fracture on the x-ray -New onset atrial fibrillation with Ventricular response. -Acute CHF with mild pulmonary congestion. Old echocardiogram showing EF 55 45- 50 % -Cardiomyopathy ejection fraction 45 to 50% -Diabetes type 2 insulin-dependent -COPD; not in exacerbation -Recent history of left thigh abscess -Hypertension -Chronic back pain -Chronic leukocytosis -Obesity with BMI of 38 Plan: Patient is unable to lie flat for the stress test. Heart rate is still elevated. Patient will be continued on metoprolol, amiodarone and also started on anticoagulation with Eliquis. Heparin IV has been discontinued. Patient was also started on digoxin. Patient is maintained on oral Lasix Oxycodone ER already been ordered. Percocet resumed at home dose open patient request and insistence I talked to the patient about resuming the rest of the pain medication, he was adamant to resume it although the risk of respiratory depression and/or are explained to him, however he agrees to start smaller dose of Percocet 5 mg instead of 10 with close monitoring Patient was seen by orthopedic surgery recommends conservative measures at this time. Nonemergent orthopedic surgical intervention is recommended at this time. Continue with cardiac medication Hold losartan and naproxen Send sliding scale and insulin regimen. Nephrology and cardiology on board. Pain management consult Labs and medication were reviewed.. Monitor labs and vitals. DVT and GI prophylaxis. Further recommendations as per clinical course of the patient DVT prophylaxis: On full anticoagulation GI Prophylaxis: Pepcid Prognosis is guarded Time with Patient: Greater than 30
[2024-08-11 05:53] LABS: Glucose,Whole Blood 171 mg/dL (70-110)
[2024-08-11 06:15] LABS: Basophils # (A) 0.1 k/uL (0-0.2); Basophils % (A) 1 %; Eosinophils # (A) 0.3 k/uL (0-0.7); Eosinophils % (A) 2 %; HGB 14.1 gm/dL (13.0-17.5); Lymphocytes # (A) 2.3 k/uL (1.0-4.8); Lymphocytes % (A) 15 %; MCH 32.2 pg (25.0-35.0); MCHC 32.8 g/dL (31.0-37.0); MCV 98.3 fL (80.0-100.0); Mean Platelet Volume 8.7; Monocytes # (A) 0.8 k/uL (0-1.0); Monocytes % (A) 5 %; Neutrophils # (A) 11.8 k/uL (1.3-7.7); Neutrophils % (A) 76 %; Platelet Count 308 k/uL (150-450); RBC 4.38 m/uL (4.30-5.90); WBC 15.4 k/uL (3.8-10.6)
[2024-08-11 06:25] LABS: African American GFR (CKD) >90 (>60 ml/min/1.73 sqM); Anion Gap 8 mmol/L; Blood Urea Nitrogen 23 mg/dL (9-20); Calcium 8.1 mg/dL (8.4-10.2); Carbon Dioxide 30 mmol/L (22-30); Chloride 95 mmol/L (98-107); Glucose 159 mg/dL (74-99); Non-African American GFR(CKD) 85 (>60 ml/min/1.73 sqM); Potassium 3.6 mmol/L (3.5-5.1); Sodium 133 mmol/L (137-145)
[2024-08-11 11:21] LABS: Glucose,Whole Blood 122 mg/dL (70-110)
[2024-08-11] MEDS: DILTIAZEM ORAL 30 MG TAB PO SCH (11:43)
[2024-08-11] MEDS ORDERED: fentaNYL (PF) 50 MCG/ML 2 ML AMP IVP PRN (13:20)
[2024-08-11] MEDS ORDERED: BENZOCAINE SPRAY 1 CAN TOPICAL PRN (13:20)
[2024-08-11] MEDS ORDERED: MIDAZOLAM 2 MG/2 ML VIAL IV PRN (13:20)
--- NOTE | 2024-08-11 13:20 | P.PN ---
Subjective HISTORY OF PRESENT ILLNESS: This is a 54-year-old male who is admitted to the hospital secondary to congestive heart failure and acute kidney injury. Patient was initially started on IV diuretics and has since been transition to oral diuretics. Kidney function today stable at 0.92. Patient underwent echocardiogram revealing ejection fraction 45 to 50%. Echo was technically difficult study and valvular function was not assessed. Patient went into A-fib with RVR overnight. He was started on IV amiodarone. He remains in atrial fibrillation this morning with a heart rate around 100. Patient was scheduled to undergo Lexiscan stress test this morning however someone gave the patient breakfast. Patient currently denies chest pain or pressure. She denies shortness of breath. He remains on IV heparin. 08/08/2024 Patient examined this morning at the bedside. Patient currently denies chest pain or pressure. He denies shortness of breath. Patient remains on IV heparin. Patient was scheduled to undergo Lexiscan stress test this morning however this was canceled as the patient was unable to lay flat for the test. Vital signs are stable. Telemetry reveals atrial fibrillation with controlled ventricular rate Patient underwent ultrasound of his left leg revealing a 5.1 cm hyperemic hypoechoic nodule. Abscess is in differential diagnosis. Orthopedics has evaluated the patient for chronic low back pain and spondylosis. No emergent orthopedic surgical intervention is recommended. 08/09/2024 Patient examined this morning the bedside. Patient currently denies chest pain or pressure. He denies shortness of breath. This morning patient's heart rates are uncontrolled in the 130s. He remains in atrial fibrillation. Blood pressures are soft. 08/10/2024 Patient examined this morning the bedside. Patient currently denies chest pain or pressure. He denies shortness of breath. Patient remains in atrial fibrillation this morning with a heart rate in the 120s. Heart rates with activity go into the [id number]. Blood pressure is improved today with a reading of 123/83 this morning. PHYSICAL EXAM: VITAL SIGNS: Reviewed. GENERAL: Well-developed in no acute distress. NECK: Supple. No JVD or thyromegaly LUNGS: Respirations even and unlabored. Lungs essentially clear to auscultation bilaterally. HEART: Tachycardic irregular rate and rhythm. S1 and S2 heard. EXTREMITIES: Normal range of motion. No clubbing or cyanosis. Peripheral pulses intact. No lower extremity edema ASSESSMENT: Acute congestive heart failure with mildly reduced EF 45 to 50% Acute kidney injury, resolved New onset atrial fibrillation with RVR Mild cardiomyopathy, 45%, ischemic versus nonischemic Hypertension Hyperlipidemia Nicotine dependence, patient reports smoking 3 packs/day Morbid obesity: BMI 40.3 PLAN: Patient unable to tolerate laying flat for Lexiscan stress test. Further ischemic workup to be performed on an outpatient basis. Nephrology following. Continue oral diuretics. Continue oral amiodarone. Taper at discharge includes 200 mg twice a day for 1 week then decrease to 200 mg daily. Continue oral digoxin Continue metoprolol 75 mg twice a day Add Cardizem 30 mg 3 times daily Continue telemetry monitoring N.p.o. at midnight Possible FRANSISCA and cardioversion tomorrow with Dr. Sotelo Patient to follow-up postdischarge with Dr. Feng Nurse practitioner note has been reviewed by physician. Signing provider agrees with the documented findings, assessment, and plan of care documented by [employer] as a scribe. Objective - Vital Signs Vital signs: Vital Signs Temp 97.7 F 08/11/24 08:00 Pulse 67 08/11/24 12:00 Resp 18 08/11/24 12:00 BP 99/67 08/11/24 12:00 Pulse Ox 94 L 08/11/24 12:00 FiO2 Intake & Output 08/10/24 08/11/24 08/11/24 18:59 06:59 18:59 Intake Total 1366 236 Balance 1366 236 Weight 152 kg Intake: Oral 1366 236 Other: Voiding Method Toilet Toilet # Voids 1 2 1 - Labs CBC & Chem 7: 08/11/24 05:36 08/11/24 05:36 Labs: Abnormal Lab Results - Last 24 Hours (Table) 08/10/24 08/10/24 08/10/24 Range/Units 16:29 17:51 19:53 WBC (3.8-10.6) k/uL Neutrophils # (1.3-7.7) k/uL Sodium (137-145) mmol/L Chloride (98-107) mmol/L BUN (9-20) mg/dL Glucose (74-99) mg/dL POC Glucose (mg/dL) 112 H 143 H 131 H (70-110) mg/dL Calcium (8.4-10.2) mg/dL 11/08/11/24 08/11/24 Range/Units 05:36 05:36 05:52 WBC 15.4 H (3.8-10.6) k/uL Neutrophils # 11.8 H (1.3-7.7) k/uL Sodium 133 L (137-145) mmol/L Chloride 95 L (98-107) mmol/L BUN 23 H (9-20) mg/dL Glucose 159 H (74-99) mg/dL POC Glucose (mg/dL) 171 H (70-110) mg/dL Calcium 8.1 L (8.4-10.2) mg/dL 08/11/24 Range/Units 11:19 WBC (3.8-10.6) k/uL Neutrophils # (1.3-7.7) k/uL Sodium (137-145) mmol/L Chloride (98-107) mmol/L BUN (9-20) mg/dL Glucose (74-99) mg/dL POC Glucose (mg/dL) 122 H (70-110) mg/dL Calcium (8.4-10.2) mg/dL
[2024-08-11 16:17] LABS: Glucose,Whole Blood 166 mg/dL (70-110)
[2024-08-11 20:20] LABS: Glucose,Whole Blood 164 mg/dL (70-110)
--- NOTE | 2024-08-12 01:00 | P.PN ---
Subjective Progress Note Date: 08/11/24 This is a pleasant 54 years old male with past medical history of multiple medical problems Patient states he does not remember why he is in the hospital As per documented staff patient presents because of altered mental status. Patient this morning he is stating his main concern is his chronic low back pain and he is asking for his Percocet which he takes at home otherwise he will leave AMA. Patient referring to his oxycodone ER 10 mg Twice daily, as well as Percocet 10 mg every 6 hours, I explained for the patient the risk and benefits of this medication including but not limited to the risk of respiratory depression and/or , Patient however denies specific symptoms, no abdominal pain vomiting diarrhea, no dysuria or urgency. No chest pain dyspnea or coughing. No headache dizziness weakness or numbness Patient states that he fell 2 days ago when he slipped on the rainy weather Also states that he smokes 3 packs/day and he was counseled to quit and he agrees and wants the nicotine patch but denies alcohol. Patient states that he uses marijuana sometimes Patient is afebrile, he is mildly tachycardic and tachypneic. He was saturating 95% on 2 L oxygen Labs reviewed WBC 14,020 1000 but he has chronic leukocytosis INR 0.9 Troponin is -0.015 Urine analysis is negative TSH 0.8 Ammonia level is negative at 29 Urine drug screen is positive for oxycodone, TCA and marijuana EKG showing sinus rhythm with tachycardia at [address]-T changes CT of the brain is negative Chest x-ray showing cardiomegaly with mild pulmonary vascular congestion No recent echocardiogram, ejection fraction from 2018 was 55 to 60% 08/06 Patient is awake alert He is complaining from severe low back pain. He is adamant to restart his Percocet 10-325 mg every 6 hours as needed on the top of 10 mg of OxyContin twice daily which are his home medication. Risks including but not limited to the respiratory depression and/or I explained to him and he still wants his pain medication Patient states that he was taking this pain medication for his fibromyalgia however about 3 days ago he was moving the chair in his kitchen when he slipped and fell on his face and the back, states he was rolling when he fell and since then he is having severe low back pain. He states pain was not that severe before he falls however patient denies new weakness or tingling or numbness in his lower extremities. He could walk to the restroom. He is planning to get a shower today with the help of his staff Other than that his creatinine improved significantly down to 1.4, his IV Lasix twice daily switched to oral dose Losartan remains on hold. Naproxen was one of his home medication listed however patient denies taking this medication, however he was counseled against using NSAIDs like Motrin, ibuprofen or Naprosyn Echocardiogram showing ejection fraction of 45 to 50% Renal ultrasound showing no obstructive uropathy Lumbar x-ray ordered today showing no fracture or dislocation and good alignment Labs showing improving leukocytosis at 15.3 but this is a chronic problem. Creatinine significantly improved down to 1.4 08/07 Patient was supposed to get stress test today however he ate so it was postponed till tomorrow No Gamez catheter, no urinary complaints No other new complaint Creatinine improved down to normal at 0.9 Patient still insisting on getting all his pain medication of Percocet 10 mg as well as longer acting OxyContin He remains on heparin drip We will check ultrasound of the thigh to rule out residual abscess. Given his leukocytosis which is also is chronic 08/08/2024 Patient is resting in the bed. Awake alert and oriented x 3. No complaints of chest pain. Shortness of breath did improve. Mentation is also improving. Patient does have good urine output. Patient is being diuresed with Lasix. Changed to by mouth. Gamez catheter have been removed. Laboratory data showed sodium 139 potassium 3.3 chloride 100 bicarb is 30 BUN 27 creatinine 0.85 blood sugar is 137 and calcium 9.1. Nephrology and cardiology is on board. Patient is unable to lie flat for Lexiscan stress test today. Patient is on amiodarone and also started on oral anticoagulation. EKG this morning showed atrial fibrillation with rapid ventricular rate with heart rate of 147. Cardiology is on board. Ultrasound left lower extremity showed 5.1 cm hyperemic hypoechoic nodule. Palpable abnormality is nonspecific. Abscess in the differential diagnosis. 08/09/2024 Patient is sitting in the seat today. Awake alert and oriented x 3. No complaints of chest pain or shortness of breath. Heart rate is still elevated. Patient is on amiodarone, metoprolol. Digoxin was added. Patient is also on anticoagulation with Eliquis. Otherwise patient is tolerating oral diet. Renal function improved with creatinine level of 0.97 today. Other laboratory data showed WBC 17.6 hemoglobin 15.7 and platelets 305 Sodium 136 potassium 3.6 chloride 97 bicarb is 29 BUN 27 creatinine 0.97 and blood sugar is 143. Calcium 9.2. 08/10/2024 Patient is awake alert and oriented x 3. Was able to ambulate in the room. Left thigh pain is better. No complaints of chest pain or shortness breath. Patient has been afebrile. Heart rate remains in 120s this morning. Blood pressure is stable 120s. Metoprolol dose was increased to 75 mg twice daily. Cardiology is on board. Otherwise renal function is normalized. Laboratory pressure WBC trending down to 16.0 hemoglobin 14.9 and platelets 285, sodium 135 potassium 3.7 chloride 94 bicarb is 31 BUN 27 and creatinine 1.02 and blood sugar is 146. 08/11/2024 Patient is lying in the bed. Awake alert and oriented x 3. Denied any c omplaints of chest pain or shortness of breath. No complaints of palpitations. Otherwise patient remains in atrial fibrillation. Heart rate went up to 122 last night. Patient is being continued on amiodarone, digoxin and metoprolol 75 mg twice daily. Cardiology is planning for FRANSISCA/cardioversion follow-up. Patient is on anticoagulation with Eliquis. Laboratory data showed WBC trending down to 15.4 hemoglobin 14.1 and platelets 308 sodium 133 potassium 3.6 chloride 95 bicarb is 30 BUN 23 and creatinine 1.0 and blood sugar 1 9 and calcium 8.1. Current medications reviewed. Objective - Vital Signs Vital signs: Vital Signs Temp 98.3 F 08/11/24 20:00 Pulse 76 08/11/24 23:35 Resp 18 08/11/24 23:35 BP 90/55 08/11/24 23:35 Pulse Ox 91 L 08/11/24 23:35 FiO2 Intake & Output 08/11/24 08/11/24 08/12/24 06:59 18:59 06:59 Intake Total 472 Balance 472 Weight 152 kg Intake: Oral 472 Other: Voiding Method Toilet Toilet # Voids 2 1 - Exam - Exam -GENERAL: The patient is alert and oriented x3, not in any acute distress. Well developed, well nourished. Obese HEENT: Pupils are round and equally reacting to light. EOMI. No scleral icterus. No conjunctival pallor. Normocephalic, atraumatic. No pharyngeal erythema. No thyromegaly. CARDIOVASCULAR: S1 and S2 present. No murmurs, rubs, or gallops. PULMONARY: Chest is clear to auscultation, no wheezing , no crackles. ABDOMEN: Soft, nontender, nondistended, normoactive bowel sounds. No palpable organomegaly. MUSCULOSKELETAL: No joint swelling or deformity. -EXTREMITIES: No cyanosis, clubbing, or pedal edema. Posterior thigh with area of discoloration at the area of recent drained abscess NEUROLOGICAL: Gross neurological examination did not reveal any focal deficits. SKIN: No rashes. no petechiae. - Labs CBC & Chem 7: 08/11/24 05:36 08/11/24 05:36 Labs: Abnormal Lab Results - Last 24 Hours (Table) 08/11/24 08/11/24 08/11/24 Range/Units 05:36 05:36 05:52 WBC 15.4 H (3.8-10.6) k/uL Neutrophils # 11.8 H (1.3-7.7) k/uL Sodium 133 L (137-145) mmol/L Chloride 95 L (98-107) mmol/L BUN 23 H (9-20) mg/dL Glucose 159 H (74-99) mg/dL POC Glucose (mg/dL) 171 H (70-110) mg/dL Calcium 8.1 L (8.4-10.2) mg/dL 08/11/24 08/11/24 08/11/24 Range/Units 11:19 16:15 20:17 WBC (3.8-10.6) k/uL Neutrophils # (1.3-7.7) k/uL Sodium (137-145) mmol/L Chloride (98-107) mmol/L BUN (9-20) mg/dL Glucose (74-99) mg/dL POC Glucose (mg/dL) 122 H 166 H 164 H (70-110) mg/dL Calcium (8.4-10.2) mg/dL Assessment and Plan Assessment: -Altered mental status, present on admission. Most likely metabolic/toxic ence phalopathy, including renal failure's and narcotic use. Patient is back to baseline. -Acute kidney injury on chronic kidney disease stage 2 -Fall at home 3 days prior to hospitalization without syncope with resultant severe low back pain with no evidence of fracture on the x-ray -New onset atrial fibrillation with Ventricular response. -Acute CHF with mild pulmonary congestion. Old echocardiogram showing EF 55 45- 50 % -Cardiomyopathy ejection fraction 45 to 50% -Diabetes type 2 insulin-dependent -COPD; not in exacerbation -Recent history of left thigh abscess. Leukocytosis trending down. No evidence of drainage noted. -Hypertension -Chronic back pain -Chronic leukocytosis -Obesity with BMI of 38 Plan: Patient is unable to lie flat for the stress test. Heart rate is still elevated. Patient will be continued on metoprolol, amiodarone and also started on anticoagulation with Eliquis. Heparin IV has been discontinued. Patient was also started on digoxin. Patient is maintained on oral Lasix. Cardiology planning for FRANSISCA/cardioversion tomorrow. Oxycodone ER already been ordered. Percocet resumed at home dose open patient request and insistence I talked to the patient about resuming the rest of the pain medication, he was adamant to resume it although the risk of respiratory depression and/or are explained to him, however he agrees to start smaller dose of Percocet 5 mg instead of 10 with close monitoring Patient was seen by orthopedic surgery recommends conservative measures at this time. Nonemergent orthopedic surgical intervention is recommended at this time. Continue with cardiac medication Hold losartan and naproxen Send sliding scale and insulin regimen. Nephrology and cardiology on board. Pain management consult Labs and medication were reviewed.. Monitor labs and vitals. DVT and GI prophylaxis. Further recommendations as per clinical course of the patient DVT prophylaxis: On full anticoagulation GI Prophylaxis: Pepcid Prognosis is guarded Time with Patient: Greater than 30
[2024-08-12 06:11] LABS: Glucose,Whole Blood 121 mg/dL (70-110)
[2024-08-12 08:09] LABS: African American GFR (CKD) >90 (>60 ml/min/1.73 sqM); Anion Gap 10 mmol/L; Blood Urea Nitrogen 20 mg/dL (9-20); Calcium 8.6 mg/dL (8.4-10.2); Carbon Dioxide 31 mmol/L (22-30); Chloride 95 mmol/L (98-107); Glucose 135 mg/dL (74-99); Non-African American GFR(CKD) >90 (>60 ml/min/1.73 sqM); Sodium 136 mmol/L (137-145)
--- NOTE | 2024-08-12 09:18 | P.PN ---
Subjective Patient is seen in follow-up for acute kidney injury. Renal function at baseline. Denies chest pain or shortness of breath. Admits to good urine output. Vital signs are stable. General: No acute distress. HEENT: Head exam is unremarkable. LUNGS: No audible rhonchi or wheezes. HEART: Rate and Rhythm are regular. ABDOMEN: Obese, nontender. EXTREMITITES: No edema. Objective - Vital Signs Vital signs: Vital Signs Temp 98.3 F 08/11/24 20:00 Pulse 90 08/12/24 08:39 Resp 18 08/12/24 04:25 BP 101/52 08/12/24 04:25 Pulse Ox 95 08/12/24 04:25 FiO2 Intake & Output 08/11/24 08/12/24 08/12/24 18:59 06:59 18:59 Intake Total 472 800 10 Balance 472 800 10 Weight 152.2 kg Intake: IV 10 Invasive Line 5 10 Oral 472 800 Other: Voiding Method Toilet # Voids 1 2 - Labs CBC & Chem 7: 08/11/24 05:36 08/12/24 07:15 Labs: Abnormal Lab Results - Last 24 Hours (Table) 08/11/24 08/11/24 08/11/24 Range/Units 11:19 16:15 20:17 Sodium (137-145) mmol/L Chloride (98-107) mmol/L Carbon Dioxide (22-30) mmol/L Glucose (74-99) mg/dL POC Glucose (mg/dL) 122 H 166 H 164 H (70-110) mg/dL 08/12/24 08/12/24 Range/Units 06:06 07:15 Sodium 136 L (137-145) mmol/L Chloride 95 L (98-107) mmol/L Carbon Dioxide 31 H (22-30) mmol/L Glucose 135 H (74-99) mg/dL POC Glucose (mg/dL) 121 H (70-110) mg/dL Assessment and Plan Plan: Assessment: 1. Acute kidney injury secondary to ATN secondary to hypotension, NSAIDs and cardiorenal syndrome. Resolved. UA benign. No hydronephrosis noted on kidney ultrasound. 2. Volume overload. Improved with diuresis. 3. A-fib with RVR maintained on digoxin, metoprolol and amiodarone. Also on anticoagulation. 4. Acute on chronic systolic CHF ejection fraction of 45 to 50%. 5. Diabetes mellitus. Plan: Maintain Lasix. Maintain Farxiga. Advised patient to maintain low-salt diet and fluid restriction of less than 50 to 55 ounces per day upon discharge. He was also advised to monitor his weight closely at home and to notify physician if develops edema or gains more than 3 pounds in 1 week duration. Follow-up outpatient 1 week postdischarge.
[2024-08-12] MEDS: IV FLUID CONTINUATION 1,000 ML IV ONE (09:57)
[2024-08-12 10:03] LABS: Glucose,Whole Blood 132 mg/dL (70-110)
[2024-08-12] MEDS ORDERED: PROPOFOL 10 MG/ML 20 ML VIAL IV ONE (11:57)
[2024-08-12] MEDS ORDERED: KETAMINE HCL IN 0.9 % NACL 50 MG/5 ML SYRINGE ONE (11:57)
[2024-08-12] MEDS ORDERED: MIDAZOLAM 2 MG/2 ML VIAL ONE (11:57)
[2024-08-12] MEDS: BENZOCAINE SPRAY 1 EACH MM ONE (12:02)
--- NOTE | 2024-08-12 12:21 | P.PN ---
Subjective Progress Note Date: 08/12/24 PROGRESS NOTE The patient is a 54-year-old male who presented with acute kidney injury and evidence of CHF with atrial fibrillation and rapid ventricle response. His heart rate continues to be fast. He is feeling slightly better today. He denies any chest discomfort, dizziness or palpitations. He denies any nausea. He is scheduled to undergo FRANSISCA guided cardioversion today. Medications: Amiodarone 200 mg twice a day, digoxin 0.5 mg daily, Eliquis 5 mg twice a day, aspirin, Farxiga 10 mg daily, diltiazem 30 mg 3 times daily, metoprolol tartrate 75 mg twice a day, Lasix 40 mg twice a day, insulin PHYSICAL EXAMINATION: Blood pressure 100/70 heart rate 107 LUNGS: Few crackles at the bases HEART: Irregular rate and rhythm, S1, S2. No S3. Systolic ejection murmur ABDOMEN: Soft, nontender, no organomegaly obese EXTREMETIES: Trace edema LAB: Potassium 4.0, BUN 20, creatinine 0.81 IMPRESSION: 1. Atrial fibrillation with persistent rapid ventricle response 2. Symptoms of CHF with mildly impaired systolic function 3. Acute renal injury, improved 4. Diabetes PLAN: 1. Proceed with FRANSISCA guided cardioversion 2. Continue anticoagulation 3. Follow renal functions 4. Depending on his progress further recommendations will be made Objective - Vital Signs Vital signs: Vital Signs Temp 98.1 F 08/12/24 09:58 Pulse 75 08/12/24 11:44 Resp 16 08/12/24 11:44 BP 100/77 08/12/24 11:44 Pulse Ox 99 08/12/24 11:44 FiO2 Intake & Output 08/11/24 08/12/24 08/12/24 18:59 06:59 18:59 Intake Total 472 800 10 Balance 472 800 10 Weight 152.2 kg Intake: IV 10 Invasive Line 5 10 Oral 472 800 Other: Voiding Method Toilet Toilet # Voids 1 2 - Labs CBC & Chem 7: 08/11/24 05:36 08/12/24 07:15 Labs: Abnormal Lab Results - Last 24 Hours (Table) 08/11/24 08/11/24 08/12/24 Range/Units 16:15 20:17 06:06 Sodium (137-145) mmol/L Chloride (98-107) mmol/L Carbon Dioxide (22-30) mmol/L Glucose (74-99) mg/dL POC Glucose (mg/dL) 166 H 164 H 121 H (70-110) mg/dL 08/12/24 08/12/24 Range/Units 07:15 10:00 Sodium 136 L (137-145) mmol/L Chloride 95 L (98-107) mmol/L Carbon Dioxide 31 H (22-30) mmol/L Glucose 135 H (74-99) mg/dL POC Glucose (mg/dL) 132 H (70-110) mg/dL
--- NOTE | 2024-08-12 12:24 | P.PCN ---
Date of Procedure: 08/12/24 Description of Procedure: Indication: Atrial fibrillation Procedure Description: After explaining the procedure to the patient, it's risk and complications, blood pressure, heart rate and O2 saturation were monitored. The throat was sprayed with Cetacaine. Patient received sedation per anesthesia department. The probe was introduced into the esophagus without difficulty. Images were obtained. Following that, the probe was removed. There was no immediate complication. Findings: Left atrial size is dilated, left atrial appendage is normal. Interatrial septum is highly mobile, shifting to the right. Left ventricular systolic function is mildly impaired with ejection fraction 45 to 50% with global hypokinesis. The aortic valve, mitral valve and tricuspid valve appears to be normal. The pulmonic valve appears to be normal. Descending thoracic aorta appears to be normal. No pericardial effusion was noted. Contrast bubble study revealed mild shunting across the interatrial septum. Doppler: Pulse wave and color Doppler were obtained, and revealed moderate mitral and tricuspid regurgitation with [id number] shunting through a patent foramen ovale Conclusion: 1. Dilated left atrium with normal appearance of the left atrial appendage 2. Mildly impaired left ventricular systolic function 3. Moderate mitral and tricuspid regurgitation 4. Patent foramen ovale with bidirectional flow was contrast bubble study and highly mobile interatrial septum 5. No pericardial effusion Cardioversion: After obtaining FRANSISCA and sedated state a synchronized biphasic cardioversion using 150 J was performed with lutheran of sinus mechanism, there was no immediate complications.
[2024-08-12 12:56] LABS: Glucose,Whole Blood 127 mg/dL (70-110)
--- NOTE | 2024-08-12 13:33 | P.PN ---
Subjective Progress Note Date: 08/12/24 This is a pleasant 54 years old male with past medical history of multiple medical problems Patient states he does not remember why he is in the hospital As per documented staff patient presents because of altered mental status. Patient this morning he is stating his main concern is his chronic low back pain and he is asking for his Percocet which he takes at home otherwise he will leave AMA. Patient referring to his oxycodone ER 10 mg Twice daily, as well as Percocet 10 mg every 6 hours, I explained for the patient the risk and benefits of this medication including but not limited to the risk of respiratory depression and/or , Patient however denies specific symptoms, no abdominal pain vomiting diarrhea, no dysuria or urgency. No chest pain dyspnea or coughing. No headache dizziness weakness or numbness Patient states that he fell 2 days ago when he slipped on the rainy weather Also states that he smokes 3 packs/day and he was counseled to quit and he agrees and wants the nicotine patch but denies alcohol. Patient states that he uses marijuana sometimes Patient is afebrile, he is mildly tachycardic and tachypneic. He was saturating 95% on 2 L oxygen Labs reviewed WBC 14,020 1000 but he has chronic leukocytosis INR 0.9 Troponin is -0.015 Urine analysis is negative TSH 0.8 Ammonia level is negative at 29 Urine drug screen is positive for oxycodone, TCA and marijuana EKG showing sinus rhythm with tachycardia at [address]-T changes CT of the brain is negative Chest x-ray showing cardiomegaly with mild pulmonary vascular congestion No recent echocardiogram, ejection fraction from 2018 was 55 to 60% 08/06 Patient is awake alert He is complaining from severe low back pain. He is adamant to restart his Percocet 10-325 mg every 6 hours as needed on the top of 10 mg of OxyContin twice daily which are his home medication. Risks including but not limited to the respiratory depression and/or I explained to him and he still wants his pain medication Patient states that he was taking this pain medication for his fibromyalgia however about 3 days ago he was moving the chair in his kitchen when he slipped and fell on his face and the back, states he was rolling when he fell and since then he is having severe low back pain. He states pain was not that severe before he falls however patient denies new weakness or tingling or numbness in his lower extremities. He could walk to the restroom. He is planning to get a shower today with the help of his staff Other than that his creatinine improved significantly down to 1.4, his IV Lasix twice daily switched to oral dose Losartan remains on hold. Naproxen was one of his home medication listed however patient denies taking this medication, however he was counseled against using NSAIDs like Motrin, ibuprofen or Naprosyn Echocardiogram showing ejection fraction of 45 to 50% Renal ultrasound showing no obstructive uropathy Lumbar x-ray ordered today showing no fracture or dislocation and good alignment Labs showing improving leukocytosis at 15.3 but this is a chronic problem. Creatinine significantly improved down to 1.4 08/07 Patient was supposed to get stress test today however he ate so it was postponed till tomorrow No Gamez catheter, no urinary complaints No other new complaint Creatinine improved down to normal at 0.9 Patient still insisting on getting all his pain medication of Percocet 10 mg as well as longer acting OxyContin He remains on heparin drip We will check ultrasound of the thigh to rule out residual abscess. Given his leukocytosis which is also is chronic 08/08/2024 Patient is resting in the bed. Awake alert and oriented x 3. No complaints of chest pain. Shortness of breath did improve. Mentation is also improving. Patient does have good urine output. Patient is being diuresed with Lasix. Changed to by mouth. Gamez catheter have been removed. Laboratory data showed sodium 139 potassium 3.3 chloride 100 bicarb is 30 BUN 27 creatinine 0.85 blood sugar is 137 and calcium 9.1. Nephrology and cardiology is on board. Patient is unable to lie flat for Lexiscan stress test today. Patient is on amiodarone and also started on oral anticoagulation. EKG this morning showed atrial fibrillation with rapid ventricular rate with heart rate of 147. Cardiology is on board. Ultrasound left lower extremity showed 5.1 cm hyperemic hypoechoic nodule. Palpable abnormality is nonspecific. Abscess in the differential diagnosis. 08/09/2024 Patient is sitting in the seat today. Awake alert and oriented x 3. No complaints of chest pain or shortness of breath. Heart rate is still elevated. Patient is on amiodarone, metoprolol. Digoxin was added. Patient is also on anticoagulation with Eliquis. Otherwise patient is tolerating oral diet. Renal function improved with creatinine level of 0.97 today. Other laboratory data showed WBC 17.6 hemoglobin 15.7 and platelets 305 Sodium 136 potassium 3.6 chloride 97 bicarb is 29 BUN 27 creatinine 0.97 and blood sugar is 143. Calcium 9.2. 08/10/2024 Patient is awake alert and oriented x 3. Was able to ambulate in the room. Left thigh pain is better. No complaints of chest pain or shortness breath. Patient has been afebrile. Heart rate remains in 120s this morning. Blood pressure is stable 120s. Metoprolol dose was increased to 75 mg twice daily. Cardiology is on board. Otherwise renal function is normalized. Laboratory pressure WBC trending down to 16.0 hemoglobin 14.9 and platelets 285, sodium 135 potassium 3.7 chloride 94 bicarb is 31 BUN 27 and creatinine 1.02 and blood sugar is 146. 08/11/2024 Patient is lying in the bed. Awake alert and oriented x 3. Denied any c omplaints of chest pain or shortness of breath. No complaints of palpitations. Otherwise patient remains in atrial fibrillation. Heart rate went up to 122 last night. Patient is being continued on amiodarone, digoxin and metoprolol 75 mg twice daily. Cardiology is planning for FRANSISCA/cardioversion follow-up. Patient is on anticoagulation with Eliquis. Laboratory data showed WBC trending down to 15.4 hemoglobin 14.1 and platelets 308 sodium 133 potassium 3.6 chloride 95 bicarb is 30 BUN 23 and creatinine 1.0 and blood sugar 1 9 and calcium 8.1. 08/12. Patient seen and examined. Blood work this morning showed sodium 130s, potassium 4, BUN 20, creatinine 0.81. Currently n.p.o., going for FRANSISCA with cardioversion REVIEW OF SYSTEMS: CONSTITUTIONAL: No fever, no malaise,. CARDIOVASCULAR: No chest pain, no palpitations, no syncope. PULMONARY: No shortness of breath, no cough, GASTROINTESTINAL: No diarrhea, no nausea, no vomiting, no abdominal pain. NEUROLOGICAL: No headaches, no weakness, PHYSICAL EXAMINATION: GENERAL: The patient is alert and oriented x3, not in any acute distress. Well developed, well nourished. HEENT: Pupils are round and equally reacting to light. EOMI. No scleral icterus. No conjunctival pallor. Normocephalic, atraumatic. No pharyngeal erythema. No thyromegaly. CARDIOVASCULAR: S1 and S2 present. No murmurs, rubs, or gallops. PULMONARY: Chest is clear to auscultation, no wheezing or crackles. ABDOMEN: Soft, nontender, nondistended, normoactive bowel sounds. No palpable organomegaly. MUSCULOSKELETAL: No joint swelling or deformity. EXTREMITIES: No cyanosis, clubbing, or pedal edema. NEUROLOGICAL: Gross neurological examination did not reveal any focal deficits. SKIN: No rashes. Assessment and plan -Altered mental status, present on admission. Most likely metabolic/toxic encephalopathy, including renal failure's and narcotic use. Patient is back to baseline. -Acute kidney injury on chronic kidney disease stage 2 -Fall at home 3 days prior to hospitalization without syncope with resultant severe low back pain with no evidence of fracture on the x-ray -New onset atrial fibrillation with Ventricular response. -Acute CHF with mild pulmonary congestion. Old echocardiogram showing EF 55 45- 50 % -Cardiomyopathy ejection fraction 45 to 50% -Diabetes type 2 insulin-dependent -COPD; not in exacerbation -Recent history of left thigh abscess. Leukocytosis trending down. No evidence of drainage noted. -Hypertension -Chronic back pain -Chronic leukocytosis -Obesity with BMI of 38 Monitor vital signs Monitor CBC Monitor CMP Continue telemetry monitoring Continue metoprolol, Eliquis Continue oral amiodarone. Taper at discharge includes 200 mg twice a day for 1 week then decrease to 200 mg daily. Strict I's and O's, daily weights, continue Lasix Cardiology planning FRANSISCA with cardioversion Nephrology following Labs and medication were reviewed.. Continue same treatment. Continue with symptomatic treatment. Resume home medication. Monitor labs and vitals. DVT and GI prophylaxis. Further recommendations as per clinical course of the patient Dictation was produced using [employer] dictation software. please excuse any grammatical, word or spelling errors. Objective - Vital Signs Vital signs: Vital Signs Temp 98.3 F 08/11/24 20:00 Pulse 90 08/12/24 08:39 Resp 18 08/12/24 04:25 BP 101/52 08/12/24 04:25 Pulse Ox 95 08/12/24 04:25 FiO2 Intake & Output 08/11/24 08/12/24 08/12/24 18:59 06:59 18:59 Intake Total 472 800 10 Balance 472 800 10 Weight 152.2 kg Intake: IV 10 Invasive Line 5 10 Oral 472 800 Other: Voiding Method Toilet # Voids 1 2 - Labs CBC & Chem 7: 08/11/24 05:36 08/12/24 07:15 Labs: Abnormal Lab Results - Last 24 Hours (Table) 08/11/24 08/11/24 08/11/24 Range/Units 11:19 16:15 20:17 Sodium (137-145) mmol/L Chloride (98-107) mmol/L Carbon Dioxide (22-30) mmol/L Glucose (74-99) mg/dL POC Glucose (mg/dL) 122 H 166 H 164 H (70-110) mg/dL 08/12/24 08/12/24 Range/Units 06:06 07:15 Sodium 136 L (137-145) mmol/L Chloride 95 L (98-107) mmol/L Carbon Dioxide 31 H (22-30) mmol/L Glucose 135 H (74-99) mg/dL POC Glucose (mg/dL) 121 H (70-110) mg/dL
[2024-08-12 16:19] LABS: Glucose,Whole Blood 187 mg/dL (70-110)
[2024-08-12] MEDS: SODIUM CHLORIDE 0.9% 1,000 ML IV SCH (16:39)
[2024-08-12] MEDS: MAGNESIUM HYDROXIDE 2,400 MG/30 ML CUP PO PRN (20:02)
[2024-08-12 20:30] LABS: Glucose,Whole Blood 142 mg/dL (70-110)
[2024-08-12 21:21] VITALS: RESP 18
[2024-08-13 06:06] LABS: Glucose,Whole Blood 174 mg/dL (70-110)
[2024-08-13 08:25] LABS: HGB 13.7 gm/dL (13.0-17.5); MCH 32.3 pg (25.0-35.0); MCHC 32.8 g/dL (31.0-37.0); MCV 98.6 fL (80.0-100.0); Platelet Count 389 k/uL (150-450); RBC 4.26 m/uL (4.30-5.90); RDW 13.9 % (11.5-15.5); WBC 17.1 k/uL (3.8-10.6)
[2024-08-13 08:43] LABS: ALT 19 U/L (4-49); AST 17 U/L (17-59); African American GFR (CKD) >90 (>60 ml/min/1.73 sqM); Albumin 3.5 g/dL (3.5-5.0); Alkaline Phosphatase 92 U/L (38-126); Anion Gap 12 mmol/L; Blood Urea Nitrogen 13 mg/dL (9-20); Calcium 8.3 mg/dL (8.4-10.2); Carbon Dioxide 27 mmol/L (22-30); Chloride 95 mmol/L (98-107); Glucose 160 mg/dL (74-99); Non-African American GFR(CKD) >90 (>60 ml/min/1.73 sqM); Potassium 4.3 mmol/L (3.5-5.1); Sodium 134 mmol/L (137-145); Total Bilirubin 0.5 mg/dL (0.2-1.3); Total Protein 6.6 g/dL (6.3-8.2)
--- NOTE | 2024-08-13 09:27 | P.PN ---
Subjective Patient is seen in follow-up for acute kidney injury. Renal function at baseline. Denies chest pain or shortness of breath. Admits to good urine output. Vital signs are stable. General: No acute distress. HEENT: Head exam is unremarkable. LUNGS: No audible rhonchi or wheezes. HEART: Rate and Rhythm are regular. ABDOMEN: Obese, nontender. EXTREMITITES: No edema. Objective - Vital Signs Vital signs: Vital Signs Temp 98.2 F 08/12/24 20:00 Pulse 92 08/13/24 08:57 Resp 18 08/13/24 04:15 BP 96/57 08/13/24 04:15 Pulse Ox 96 08/13/24 04:15 FiO2 Intake & Output 08/12/24 08/13/24 08/13/24 18:59 06:59 18:59 Intake Total 960 20 Balance 960 20 Weight 154 kg Intake: IV 420 20 Invasive Line 5 20 20 Oral 540 Other: Voiding Method Toilet Toilet # Voids 1 - Labs CBC & Chem 7: 08/13/24 07:30 08/13/24 07:30 Labs: Abnormal Lab Results - Last 24 Hours (Table) 08/12/24 08/12/24 08/12/24 Range/Units 10:00 12:55 16:17 WBC (3.8-10.6) k/uL RBC (4.30-5.90) m/uL Sodium (137-145) mmol/L Chloride (98-107) mmol/L Glucose (74-99) mg/dL POC Glucose (mg/dL) 132 H 127 H 187 H (70-110) mg/dL Calcium (8.4-10.2) mg/dL 08/12/24 08/13/24 08/13/24 Range/Units 20:28 06:05 07:30 WBC 17.1 H (3.8-10.6) k/uL RBC 4.26 L (4.30-5.90) m/uL Sodium (137-145) mmol/L Chloride (98-107) mmol/L Glucose (74-99) mg/dL POC Glucose (mg/dL) 142 H 174 H (70-110) mg/dL Calcium (8.4-10.2) mg/dL 08/13/24 Range/Units 07:30 WBC (3.8-10.6) k/uL RBC (4.30-5.90) m/uL Sodium 134 L (137-145) mmol/L Chloride 95 L (98-107) mmol/L Glucose 160 H (74-99) mg/dL POC Glucose (mg/dL) (70-110) mg/dL Calcium 8.3 L (8.4-10.2) mg/dL Assessment and Plan Plan: Assessment: 1. Acute kidney injury secondary to ATN secondary to hypotension, NSAIDs and cardiorenal syndrome. Resolved. UA benign. No hydronephrosis noted on kidney ultrasound. 2. Volume overload. Improved with diuresis. 3. A-fib with RVR maintained on digoxin, metoprolol and amiodarone. Also on anticoagulation. 4. Acute on chronic systolic CHF ejection fraction of 45 to 50%. 5. Diabetes mellitus. Plan: Maintain Lasix. Maintain Farxiga. Advised patient to maintain low-salt diet and fluid restriction of less than 50 to 55 ounces per day upon discharge. He was also advised to monitor his weight closely at home and to notify physician if develops edema or gains more than 3 pounds in 1 week duration. Follow-up outpatient 1 week postdischarge.
--- NOTE | 2024-08-13 11:06 | P.PN ---
Subjective HISTORY OF PRESENT ILLNESS: This is a 54-year-old male who is admitted to the hospital secondary to congestive heart failure and acute kidney injury. Patient was initially started on IV diuretics and has since been transition to oral diuretics. Kidney function today stable at 0.92. Patient underwent echocardiogram revealing ejection fraction 45 to 50%. Echo was technically difficult study and valvular function was not assessed. Patient went into A-fib with RVR overnight. He was started on IV amiodarone. He remains in atrial fibrillation this morning with a heart rate around 100. Patient was scheduled to undergo Lexiscan stress test this morning however someone gave the patient breakfast. Patient currently denies chest pain or pressure. She denies shortness of breath. He remains on IV heparin. 08/08/2024 Patient examined this morning at the bedside. Patient currently denies chest pain or pressure. He denies shortness of breath. Patient remains on IV heparin. Patient was scheduled to undergo Lexiscan stress test this morning however this was canceled as the patient was unable to lay flat for the test. Vital signs are stable. Telemetry reveals atrial fibrillation with controlled ventricular rate Patient underwent ultrasound of his left leg revealing a 5.1 cm hyperemic hypoechoic nodule. Abscess is in differential diagnosis. Orthopedics has evaluated the patient for chronic low back pain and spondylosis. No emergent orthopedic surgical intervention is recommended. 08/09/2024 Patient examined this morning the bedside. Patient currently denies chest pain or pressure. He denies shortness of breath. This morning patient's heart rates are uncontrolled in the 130s. He remains in atrial fibrillation. Blood pressures are soft. 08/10/2024 Patient examined this morning the bedside. Patient currently denies chest pain or pressure. He denies shortness of breath. Patient remains in atrial fibrillation this morning with a heart rate in the 120s. Heart rates with activity go into the [id number]. Blood pressure is improved today with a reading of 123/83 this morning. 08/13/2024 Patient is status post FRANSISCA and cardioversion yesterday. He is maintaining sinus mechanism this morning. He denies chest pain or pressure. He denies shortness of breath. Vital signs are stable. PHYSICAL EXAM: VITAL SIGNS: Reviewed. GENERAL: Well-developed in no acute distress. NECK: Supple. No JVD or thyromegaly LUNGS: Respirations even and unlabored. Lungs essentially clear to auscultation bilaterally. HEART: Regular rate and rhythm. S1 and S2 heard. EXTREMITIES: Normal range of motion. No clubbing or cyanosis. Peripheral pulses intact. No lower extremity edema ASSESSMENT: Acute congestive heart failure with mildly reduced EF 45 to 50% Acute kidney injury, resolved New onset atrial fibrillation with RVR, status post FRANSISCA and cardioversion, maintaining sinus mechanism Mild cardiomyopathy, 45%, ischemic versus nonischemic Hypertension Hyperlipidemia Nicotine dependence, patient reports smoking 3 packs/day Morbid obesity: BMI 40.3 PLAN: Patient unable to tolerate laying flat for Lexiscan stress test. Further ischemic workup to be performed on an outpatient basis. Nephrology following. Continue oral diuretics. Continue oral amiodarone. Decrease dosage to 200 mg daily Digoxin and Cardizem discontinued post cardioversion Continue additional cardiac medications Patient is stable for discharge home today from a cardiac standpoint Patient to follow-up postdischarge with Dr. Feng Nurse practitioner note has been reviewed by physician. Signing provider agrees with the documented findings, assessment, and plan of care documented by [employer]ION [employer]GER as a scribe. Objective - Vital Signs Vital signs: Vital Signs Temp 98.2 F 08/12/24 20:00 Pulse 92 08/13/24 08:57 Resp 18 08/13/24 04:15 BP 96/57 08/13/24 04:15 Pulse Ox 96 08/13/24 04:15 FiO2 Intake & Output 08/12/24 08/13/24 08/13/24 18:59 06:59 18:59 Intake Total 960 20 Balance 960 20 Weight 154 kg Intake: IV 420 20 Invasive Line 5 20 20 Oral 540 Other: Voiding Method Toilet Toilet # Voids 1 - Labs CBC & Chem 7: 08/13/24 07:30 08/13/24 07:30 Labs: Abnormal Lab Results - Last 24 Hours (Table) 08/12/24 08/12/24 08/12/24 Range/Units 12:55 16:17 20:28 WBC (3.8-10.6) k/uL RBC (4.30-5.90) m/uL Sodium (137-145) mmol/L Chloride (98-107) mmol/L Glucose (74-99) mg/dL POC Glucose (mg/dL) 127 H 187 H 142 H (70-110) mg/dL Calcium (8.4-10.2) mg/dL 08/13/24 08/13/24 08/13/24 Range/Units 06:05 07:30 07:30 WBC 17.1 H (3.8-10.6) k/uL RBC 4.26 L (4.30-5.90) m/uL Sodium 134 L (137-145) mmol/L Chloride 95 L (98-107) mmol/L Glucose 160 H (74-99) mg/dL POC Glucose (mg/dL) 174 H (70-110) mg/dL Calcium 8.3 L (8.4-10.2) mg/dL
[2024-08-13 11:36] LABS: Glucose,Whole Blood 136 mg/dL (70-110)
--- NOTE | 2024-08-13 12:46 | P.DS ---
Providers Date of admission: 08/04/24 20:12 Expected date of discharge: 08/13/24 Attending physician: Sol Sanchez Consults: 08/04/24 20:10 Consult Physician Routine Consulting Provider: Ferdinand Witt Consult Reason/Comments: Acute renal failure Do you want consulting provider notified?: Yes 08/04/24 23:02 Consult Physician Routine Consulting Provider: [facility] Consult Reason/Comments: CHF, afib Do you want consulting provider notified?: Yes 08/05/24 10:47 Consult Physician Routine Consulting Provider: Riri Kingsley Consult Reason/Comments: Pain Management Do you want consulting provider notified?: Yes 08/06/24 10:51 Consult Physician Routine Consulting Provider: Rene Luna Consult Reason/Comments: low back pain after fall Do you want consulting provider notified?: Yes Primary care physician: Patric Granda Hospital Course: Discharge diagnoses; -Altered mental status, present on admission. Most likely metabolic/toxic encephalopathy, including renal failure's and narcotic use. Patient is back to baseline. -Acute kidney injury on chronic kidney disease stage 2 -Fall at home 3 days prior to hospitalization without syncope with resultant severe low back pain with no evidence of fracture on the x-ray -New onset atrial fibrillation with Ventricular response. -Acute CHF with mild pulmonary congestion. Old echocardiogram showing EF 55 45- 50 % -Cardiomyopathy ejection fraction 45 to 50% -Diabetes type 2 insulin-dependent -COPD; not in exacerbation -Recent history of left thigh abscess. Leukocytosis trending down. No evidence of drainage noted. -Hypertension -Chronic back pain -Chronic leukocytosis -Obesity with BMI of 38 Hospital course; This is a pleasant 54 years old male with past medical history of multiple m edical problems Patient states he does not remember why he is in the hospital As per documented staff patient presents because of altered mental status. Patient this morning he is stating his main concern is his chronic low back pain and he is asking for his Percocet which he takes at home otherwise he will leave AMA. Patient referring to his oxycodone ER 10 mg Twice daily, as well as Percocet 10 mg every 6 hours, I explained for the patient the risk and benefits of this medication including but not limited to the risk of respiratory depression and/or , Patient however denies specific symptoms, no abdominal pain vomiting diarrhea, no dysuria or urgency. No chest pain dyspnea or coughing. No headache dizziness weakness or numbness Patient states that he fell 2 days ago when he slipped on the rainy weather Also states that he smokes 3 packs/day and he was counseled to quit and he agrees and wants the nicotine patch but denies alcohol. Patient states that he uses marijuana sometimes Patient is afebrile, he is mildly tachycardic and tachypneic. He was saturating 95% on 2 L oxygen Labs reviewed WBC 14,020 1000 but he has chronic leukocytosis INR 0.9 Troponin is -0.015 Urine analysis is negative TSH 0.8 Ammonia level is negative at 29 Urine drug screen is positive for oxycodone, TCA and marijuana EKG showing sinus rhythm with tachycardia at [address]-T ch anges CT of the brain is negative Chest x-ray showing cardiomegaly with mild pulmonary vascular congestion No recent echocardiogram, ejection fraction from 2018 was 55 to 60% 08/06 Patient is awake alert He is complaining from severe low back pain. He is adamant to restart his Percocet 10-325 mg every 6 hours as needed on the top of 10 mg of OxyContin twice daily which are his home medication. Risks including but not limited to the respiratory depression and/or I explained to him and he still wants his pain medication Patient states that he was taking this pain medication for his fibromyalgia however about 3 days ago he was moving the chair in his kitchen when he slipped and fell on his face and the back, states he was rolling when he fell and since then he is having severe low back pain. He states pain was not that severe before he falls however patient denies new weakness or tingling or numbness in his lower extremities. He could walk to the restroom. He is planning to get a shower today with the help of his staff Other than that his creatinine improved significantly down to 1.4, his IV Lasix twice daily switched to oral dose Losartan remains on hold. Naproxen was one of his home medication listed however patient denies taking this medication, however he was counseled against using NSAIDs like Motrin, ibuprofen or Naprosyn Echocardiogram showing ejection fraction of 45 to 50% Renal ultrasound showing no obstructive uropathy Lumbar x-ray ordered today showing no fracture or dislocation and good alignment Labs showing improving leukocytosis at 15.3 but this is a chronic problem. Creatinine significantly improved down to 1.4 08/07 Patient was supposed to get stress test today however he ate so it was postponed till tomorrow No Gamez catheter, no urinary complaints No other new complaint Creatinine improved down to normal at 0.9 Patient still insisting on getting all his pain medication of Percocet 10 mg as well as longer acting OxyContin He remains on heparin drip We will check ultrasound of the thigh to rule out residual abscess. Given his leukocytosis which is also is chronic 08/08/2024 Patient is resting in the bed. Awake alert and oriented x 3. No complaints of chest pain. Shortness of breath did improve. Mentation is also improving. Patient does have good urine output. Patient is being diuresed with Lasix. Changed to by mouth. Gamez catheter have been removed. Laboratory data showed sodium 139 potassium 3.3 chloride 100 bicarb is 30 BUN 27 creatinine 0.85 blood sugar is 137 and calcium 9.1. Nephrology and cardiology is on board. Patient is unable to lie flat for Lexiscan stress test today. Patient is on amiodarone and also started on oral anticoagulation. EKG this morning showed atrial fibrillation with rapid ventricular rate with heart rate of 147. Cardiology is on board. Ultrasound left lower extremity showed 5.1 cm hyperemic hypoechoic nodule. Palpable abnormality is nonspecific. Abscess in the differential diagnosis. 08/09/2024 Patient is sitting in the seat today. Awake alert and oriented x 3. No complaints of chest pain or shortness of breath. Heart rate is still elevated. Patient is on amiodarone, metoprolol. Digoxin was added. Patient is also on anticoagulation with Eliquis. Otherwise patient is tolerating oral diet. Renal function improved with creatinine level of 0.97 today. Other laboratory data showed WBC 17.6 hemoglobin 15.7 and platelets 305 Sodium 136 potassium 3.6 chloride 97 bicarb is 29 BUN 27 creatinine 0.97 and blood sugar is 143. Calcium 9.2. 08/10/2024 Patient is awake alert and oriented x 3. Was able to ambulate in the room. Left thigh pain is better. No complaints of chest pain or shortness breath. Patient has been afebrile. Heart rate remains in 120s this morning. Blood pressure is stable 120s. Metoprolol dose was increased to 75 mg twice daily. Cardiology is on board. Otherwise renal function is normalized. Laboratory pressure WBC trending down to 16.0 hemoglobin 14.9 and platelets 285, sodium 135 potassium 3.7 chloride 94 bicarb is 31 BUN 27 and creatinine 1.02 and blood sugar is 146. 08/11/2024 Patient is lying in the bed. Awake alert and oriented x 3. Denied any complaints of chest pain or shortness of breath. No complaints of palpitations. Otherwise patient remains in atrial fibrillation. Heart rate went up to 122 last night. Patient is being continued on amiodarone, digoxin and metoprolol 75 mg twice daily. Cardiology is planning for FRANSISCA/cardioversion follow-up. Patient is on anticoagulation with Eliquis. Laboratory data showed WBC trending down to 15.4 hemoglobin 14.1 and platelets 308 sodium 133 potassium 3.6 chloride 95 bicarb is 30 BUN 23 and creatinine 1.0 and blood sugar 1 9 and calcium 8.1. 08/12. Patient seen and examined. Blood work this morning showed sodium 130s, potassium 4, BUN 20, creatinine 0.81. Currently n.p.o., going for FRANSISCA with cardioversion 08/13. Patient seen and examined status post cardioversion on 08/12. Cardiology recommended discharging patient on amiodarone and Eliquis. Patient to follow-up outpatient with cardiology and nephrology PHYSICAL EXAMINATION: GENERAL: The patient is alert and oriented x3, not in any acute distress. Well developed, well nourished. HEENT: Pupils are round and equally reacting to light. EOMI. No scleral icterus. No conjunctival pallor. Normocephalic, atraumatic. No pharyngeal erythema. No thyromegaly. CARDIOVASCULAR: S1 and S2 present. No murmurs, rubs, or gallops. PULMONARY: Chest is clear to auscultation, no wheezing or crackles. ABDOMEN: Soft, nontender, nondistended, normoactive bowel sounds. No palpable organomegaly. MUSCULOSKELETAL: No joint swelling or deformity. EXTREMITIES: No cyanosis, clubbing, or pedal edema. NEUROLOGICAL: Gross neurological examination did not reveal any focal deficits. SKIN: No rashes. Dictation was produced using [employer] software. please excuse any grammatical, word or spelling errors. Patient Condition at Discharge: Fair Plan - Discharge Summary Discharge Rx Participant: Yes New Discharge Prescriptions: New Aspirin 81 mg PO DAILY 30 Days #30 tab Furosemide [Lasix] 40 mg PO BID@0900,1600 30 Days #60 tab Amiodarone [Cordarone] 200 mg PO DAILY 30 Days #30 tab Apixaban [Eliquis] 5 mg PO BID 30 Days #60 tab Dapagliflozin Propanediol [Farxiga] 10 mg PO DAILY 30 Days #30 tab Atorvastatin [Lipitor] 40 mg PO HS 30 Days #30 tab Metoprolol Tartrate [Lopressor] 75 mg PO BID 30 Days #60 tab Continue Albuterol Sulfate [Albuterol Sulfate Hfa] 2 puff INHALATION RT-Q6H DULoxetine HCL [Cymbalta] 30 mg PO BID oxyCODONE HCL/ACETAMINOPHEN [Percocet 10-325 mg] 1 tab PO QID PRN PRN Reason: Pain Pregabalin [Lyrica] 200 mg PO TID Fluticasone/Umeclidin/Vilanter [Trelegy Ellipta 100-62.5-25] 1 puff INHALATION RT-DAILY Milnacipran HCl [Savella] 100 mg PO DAILY Insulin Detemir (Levemir) [Levemir] 20 unit SQ BID Loratadine [Claritin] 10 mg PO DAILY Amitriptyline HCl [Elavil] 50 - 100 mg PO HS INSULIN ASPART (NovoLOG) [NovoLOG (formulary)] 5 unit SQ TID-W/MEALS Pramipexole Di-HCl [Mirapex] 0.75 mg PO HS traZODone HCL 150 mg PO HS tiZANidine [Zanaflex] 6 mg PO TID PRN PRN Reason: Muscle Spasm Naproxen [Naprosyn] 500 mg PO BID oxyCODONE ER [OxyCONTIN] 10 mg PO Q12HR Discontinued Losartan Potassium 100 mg PO DAILY Dapagliflozin Propanediol [Farxiga] 5 mg PO DAILY Atorvastatin [Lipitor] 20 mg PO DAILY Discharge Medication List Albuterol Sulfate [Albuterol Sulfate Hfa] 2 puff INHALATION RT-Q6H 06/05/20 [History] DULoxetine HCL [Cymbalta] 30 mg PO BID 06/05/20 [History] Pregabalin [Lyrica] 200 mg PO TID 06/05/20 [History] oxyCODONE HCL/ACETAMINOPHEN [Percocet 10-325 mg] 1 tab PO QID PRN 06/05/20 [History] Fluticasone/Umeclidin/Vilanter [Trelegy Ellipta 100-62.5-25] 1 puff INHALATION RT-DAILY 04/05/22 [History] Milnacipran HCl [Savella] 100 mg PO DAILY 04/05/22 [History] Naproxen [Naprosyn] 500 mg PO BID 04/05/22 [History] tiZANidine [Zanaflex] 6 mg PO TID PRN 04/05/22 [History] Amitriptyline HCl [Elavil] 50 - 100 mg PO HS 02/25/24 [History] INSULIN ASPART (NovoLOG) [NovoLOG (formulary)] 5 unit SQ TID-W/MEALS 02/25/24 [History] Insulin Detemir (Levemir) [Levemir] 20 unit SQ BID 02/25/24 [History] Loratadine [Claritin] 10 mg PO DAILY 02/25/24 [History] Pramipexole Di-HCl [Mirapex] 0.75 mg PO HS 02/25/24 [History] oxyCODONE ER [OxyCONTIN] 10 mg PO Q12HR 02/25/24 [History] traZODone HCL 150 mg PO HS 08/04/24 [History] Amiodarone [Cordarone] 200 mg PO DAILY 30 Days #30 tab 08/13/24 [Rx] Apixaban [Eliquis] 5 mg PO BID 30 Days #60 tab 08/13/24 [Rx] Aspirin 81 mg PO DAILY 30 Days #30 tab 08/13/24 [Rx] Atorvastatin [Lipitor] 40 mg PO HS 30 Days #30 tab 08/13/24 [Rx] Dapagliflozin Propanediol [Farxiga] 10 mg PO DAILY 30 Days #30 tab 08/13/24 [Rx] Furosemide [Lasix] 40 mg PO BID@0900,1600 30 Days #60 tab 08/13/24 [Rx] Metoprolol Tartrate [Lopressor] 75 mg PO BID 30 Days #60 tab 08/13/24 [Rx] Follow up Appointment(s)/Referral(s): Madhu Feng MD [Medical Doctor] - 1 Week Patric Granda DO [Primary Care Provider] - 1-2 days Rene Luna DO [Doctor of Osteopathic Medicine] - As Needed Discharge Disposition: HOME SELF-CARE
[2024-08-13 13:09] VITALS: BP 110/68; PULSE 66; TEMP 98
[2024-08-13] MEDS ORDERED: DEXTROSE 50% SYRINGE 50 ML IVP PRN ×2 (15:01)
[2024-08-13] MEDS ORDERED: INSULIN ASPART (NovoLOG) 100 UNIT/ML VIAL SQ SCH (17:30)
[2024-08-14] MEDS ORDERED: AMIODARONE 200 MG TAB PO SCH (09:00)
== END 2024-08-13 13:40 | disposition home or self-care (01) | DRG 194 ==
LOC: EC 14:04 → 3SCARD 20:12
PROVIDERS: ADMIT Hospitalist; ATTEND Hospitalist
PROC: B246ZZ4 Ultrasonography of Right and Left Heart, Transesophageal (ICD-10-PCS; 2024-08-12)
PROC: 5A2204Z Restoration of Cardiac Rhythm, Single (ICD-10-PCS; principal; 2024-08-12 10:00)
DX: I13.0 Hypertensive heart and chronic kidney disease with heart failure and stage 1 through stage 4 chronic kidney disease, or unspecified chronic kidney disease (principal); N17.0 Acute kidney failure with tubular necrosis; G92.8 Other toxic encephalopathy; F17.210 Nicotine dependence, cigarettes, uncomplicated; E78.5 Hyperlipidemia, unspecified; E66.9 Obesity, unspecified; E11.22 Type 2 diabetes mellitus with diabetic chronic kidney disease; I48.91 Unspecified atrial fibrillation; D72.829 Elevated white blood cell count, unspecified; I50.31 Acute diastolic (congestive) heart failure; K59.00 Constipation, unspecified; J44.9 Chronic obstructive pulmonary disease, unspecified; M1A.9XX0 Chronic gout, unspecified, without tophus (tophi); T39.395A Adverse effect of other nonsteroidal anti-inflammatory drugs [NSAID], initial encounter; M79.7 Fibromyalgia; N18.2 Chronic kidney disease, stage 2 (mild); W01.0XXA Fall on same level from slipping, tripping and stumbling without subsequent striking against object, initial encounter; Z79.4 Long term (current) use of insulin; Z79.84 Long term (current) use of oral hypoglycemic drugs; Z79.891 Long term (current) use of opiate analgesic; Z89.021 Acquired absence of right finger(s); Z89.022 Acquired absence of left finger(s); Z96.641 Presence of right artificial hip joint; Z96.651 Presence of right artificial knee joint; E11.42 Type 2 diabetes mellitus with diabetic polyneuropathy; I25.5 Ischemic cardiomyopathy; R00.0 Tachycardia, unspecified; I42.8 Other cardiomyopathies; E66.01 Morbid (severe) obesity due to excess calories; G89.29 Other chronic pain; I08.1 Rheumatic disorders of both mitral and tricuspid valves; Q21.12 Patent foramen ovale; Y92.009 Unspecified place in unspecified non-institutional (private) residence as the place of occurrence of the external cause; Z79.01 Long term (current) use of anticoagulants; Z79.899 Other long term (current) drug therapy; Z98.1 Arthrodesis status; Z68.38 Body mass index [BMI] 38.0-38.9, adult; Z87.01 Personal history of pneumonia (recurrent); X58.XXXA Exposure to other specified factors, initial encounter
CPT/HCPCS: 36415; 51702; 51798; 70450; 71046; 72100; 76770; 80048; 80053; 80061; 80306; 81001; 82140; 82803; 83036; 83735; 83880; 84443; 84484; 85025; 85027; 85610; 85730; 92960; 93005; 93306; 93312; 93320; 93325; 94640; 94760; 96361; 96374; 96376; 99291

== ENCOUNTER 2024-08-16 11:58 | Inpatient (IN) | payer OTHER ==
--- NOTE | 2024-08-16 12:30 | ED ---
General Adult HPI - General Chief complaint: Chest Pain Stated complaint: chest pain/SOB Time Seen by Provider: 08/16/24 12:00 Source: patient, RN notes reviewed, old records reviewed Mode of arrival: wheelchair Limitations: no limitations - History of Present Illness Initial comments: This is a 54-year-old male who presents to the emergency department with a complaint of chest pain and difficulty breathing. Patient states he has a history of atrial fibrillation he is on Eliquis. Patient states he was recently in the hospital for congestive heart failure. Patient states last night he started having some chest pain and shortness of breath and it continued throughout the day today so he decided come to the emergency department. Patient denies any fevers or cough. Patient states occasionally gets a chill. Patient denies any abdominal pain patient has nausea vomiting diarrhea. Patient has any swelling to either of his legs. - Related Data Home Medications Medication Instructions Recorded Confirmed Albuterol Sulfate [Albuterol 2 puff INHALATION RT-Q6H 06/05/20 08/16/24 Sulfate Hfa] DULoxetine HCL [Cymbalta] 30 mg PO BID 06/05/20 08/16/24 Pregabalin [Lyrica] 200 mg PO TID 06/05/20 08/16/24 oxyCODONE HCL/ACETAMINOPHEN 1 tab PO QID PRN 06/05/20 08/16/24 [Percocet 10-325 mg] Fluticasone/Umeclidin/Vilanter 1 puff INHALATION RT-DAILY 04/05/22 08/16/24 [Trelegy Ellipta 100-62.5-25] Milnacipran HCl [Savella] 100 mg PO DAILY 04/05/22 08/16/24 Naproxen [Naprosyn] 500 mg PO BID 04/05/22 08/16/24 tiZANidine [Zanaflex] 6 mg PO TID PRN 04/05/22 08/16/24 Amitriptyline HCl [Elavil] 50 - 100 mg PO HS 02/25/24 08/16/24 INSULIN ASPART (NovoLOG) [NovoLOG 5 unit SQ TID-W/MEALS 02/25/24 08/16/24 (formulary)] Insulin Detemir (Levemir) [Levemir] 20 unit SQ BID 02/25/24 08/16/24 Loratadine [Claritin] 10 mg PO DAILY 02/25/24 08/16/24 Pramipexole Di-HCl [Mirapex] 0.75 mg PO HS 02/25/24 08/16/24 oxyCODONE ER [OxyCONTIN] 10 mg PO Q12HR 02/25/24 08/16/24 traZODone HCL 150 mg PO HS 08/04/24 08/16/24 Metoprolol Tartrate [Lopressor] 75 mg PO DIRECTED 08/16/24 08/16/24 Previous Rx's Medication Instructions Recorded Amiodarone [Cordarone] 200 mg PO DAILY #30 tab 08/13/24 Apixaban [Eliquis] 5 mg PO BID #60 tab 08/13/24 Aspirin 81 mg PO DAILY #30 tab 08/13/24 Atorvastatin [Lipitor] 40 mg PO HS #30 tablet 08/13/24 Dapagliflozin Propanediol [Farxiga] 10 mg PO DAILY #30 tablet 08/13/24 Furosemide [Lasix] 40 mg PO BID #60 tablet 08/13/24 Allergies Allergy/AdvReac Type Severity Reaction Status Date / Time No Known Allergies Allergy Verified 08/16/24 13:52 Review of Systems ROS Statement: Those systems with pertinent positive or pertinent negative responses have been documented in the HPI. ROS Other: All systems not noted in ROS Statement are negative. Past Medical History Past Medical History: Atrial Fibrillation, Chest Pain / Angina, Heart Failure, Diabetes Mellitus, Fibromyalgia, Hyperlipidemia, Hypertension, Pneumonia, Respiratory Disorder Additional Past Medical History / Comment(s): left outer thigh wound mostly healed, Left lung pneumonia/empyema, gout, chronic fibromyalgia, chronic lower back pain, degenerative arthritis, history of degenerative disc disease involving the lumbar spine, hypertension, hyperlipidemia, atrial fibrillation as the patient went into atrial fibrillation during her hospitalization for a left lower lobe pneumonia back in October 2017 and subsequently he converted back to normal sinus. He has chronic anxiety. NEUROPATHY History of Any Multi-Drug Resistant Organisms: None Reported Past Surgical History: Back Surgery, Joint Replacement, Orthopedic Surgery Additional Past Surgical History / Comment(s): rt hip replacement, rt knee replacement, left knee surgery with metal, neck fusion, lower back surgery, traumatic amputation rt index finger, left index finger tip amputation from injury. I & D LT THIGH X 6, LUNG SURGERY, COLONOSCOPY Past Anesthesia/Blood Transfusion Reactions: Blood Transfusion Reaction Additional Past Anesthesia/Blood Transfusion Reaction / Comment(s): pt states some limited neck movement due to previous surgery, " I got degenerative bone disease from a blood transfusion", "I woke up in the middle of knee surgery" Past Psychological History: No Psychological Hx Reported Smoking Status: Current every day smoker Past Alcohol Use History: Daily Past Drug Use History: None Reported - Past Family History Mother Family Medical History: No Reported History Additional Family Medical History / Comment(s): enlarged heart Father Family Medical History: No Reported History Additional Family Medical History / Comment(s): Father lived to be 101 yrs old. General Exam - General Exam Comments Initial Comments: GENERAL: Patient is well-developed and well-nourished. Patient is nontoxic and well- hydrated and is in mild distress. ENT: Neck is soft and supple. No significant lymphadenopathy is noted. Oropharynx is clear. Moist mucous membranes. Neck has full range of motion without eliciting any pain. EYES: The sclera were anicteric and conjunctiva were pink and moist. Extraocular movements were intact and pupils were equal round and reactive to light. Eyelids were unremarkable. PULMONARY: Unlabored respirations. Good breath sounds bilaterally. No audible rales rhonchi or wheezing was noted. CARDIOVASCULAR: There is a regular rate and rhythm without any murmurs gallops or rubs. ABDOMEN: Soft and nontender with normal bowel sounds. SKIN: Skin is clear with no lesions or rashes and otherwise unremarkable. NEUROLOGIC: Patient is alert and oriented x3. Cranial nerves II through XII are grossly intact. Motor and sensory are also intact. Normal speech, volume and content. Symmetrical smile. MUSCULOSKELETAL: Normal extremities with adequate strength and full range of motion. LYMPHATICS: No significant lymphadenopathy is noted PSYCHIATRIC: Normal psychiatric evaluation. Limitations: no limitations Course Vital Signs 08/16/24 08/16/24 08/16/24 12:10 13:25 14:14 Temperature 97.6 F 97.5 F L Pulse Rate 89 80 74 Respiratory 20 20 20 Rate Blood Pressure 129/77 149/87 138/84 O2 Sat by Pulse 97 97 96 Oximetry Medical Decision Making - Medical Decision Making EKG is interpreted by myself EKG shows a sinus rhythm at 82 bpm ND was 145 QRS is 96 QT interval is 53 QTc is 422. Patient's EKG shows no ST segment elevation or depression Was pt. sent in by a medical professional or institution ([employer], [employer], urgent care, hospital, or longterm...) When possible be specific @ -No Did you speak to anyone other than the patient for history (EMS, parent, family, police, friend...)? What history was obtained from this source @ -No Did you review nursing and triage notes (agree or disagree)? Why? @ -I reviewed and agree with nursing and triage notes Were old charts reviewed (outside hosp., previous admission, EMS record, old EKG, old radiological studies, urgent care reports/EKG's, longterm records)? Report findings @ -No old charts were reviewed Differential Diagnosis? @ -Differential Dyspnea: Coronary syndrome, arrhythmia, tamponade, asthma, COPD, pulmonary embolism, pneumonia, pneumothorax, pulmonary effusion, anaphylaxis, diabetic ketoacidosis, flailed chest, pulmonary contusion, diaphragmatic rupture, anemia, neuromuscular, this is not meant to be an all-inclusive list. EKG interpreted by me (3pts min.). @ -As above X-rays interpreted by me (1pt min.). @ -Chest x-ray shows lateral opacification CT interpreted by me (1pt min.). @ -CT scan shows a left lung mass U/S interpreted by me (1pt. min.). @ -None done What testing was considered but not performed or refused? (CT, X-rays, U/S, labs)? Why? @ -None What meds were considered but not given or refused? Why? @ -None Did you discuss the management of the patient with other professionals (professionals i.e. [employer], [employer] REPRESENTATIVE, lab, RT, psych nurse, healthcare social worker, title lawyer, teacher, vice squad police officer, case investigator)? Give summary @ -I spoke with Dr. Murray he agreed to admit the patient admit the patient wrote admitting orders Was smoking cessation discussed for >3mins.? @ -No Was critical care preformed (if so, how long)? @ -No Were there social determinants of health that impacted care today? How? (Homelessness, low income, unemployed, alcoholism, drug addiction, transportation, low edu. Level, literacy, decrease access to med. care, fpc, rehab)? @ -No Was there de-escalation of care discussed even if they declined (Discuss DNR or withdrawal of care, Hospice)? DNR status @ -No What co-morbidities impacted this encounter? (DM, HTN, Smoking, COPD, CAD, Cancer, CVA, ARF, Chemo, Hep., AIDS, mental health diagnosis, sleep apnea, morbid obesity)? @ -None Was patient admitted / discharged? Hospital course, mention meds given and route, prescriptions, significant lab abnormalities, going to OR and other pertinent info. @ -Patient will be admitted to the hospital for lung mass and dyspnea. Patient will have a consult in for oncology and pulmonary Undiagnosed new problem with uncertain prognosis? @ -No Drug Therapy requiring intensive monitoring for toxicity (Heparin, Nitro, Insulin, Cardizem)? @ -No Were any procedures done? @ -No Diagnosis/symptom? @ -Lung mass Acute, or Chronic, or Acute on Chronic? @ -Acute Uncomplicated (without systemic symptoms) or Complicated (systemic symptoms)? @ -Complicate Side effects of treatment? @ -No Exacerbation, Progression, or Severe Exacerbation? @ -No Poses a threat to life or bodily function? How? (Chest pain, [place], [place], pneumonia, PE, COPD, DKA, ARF, appy, cholecystitis, CVA, Diverticulitis, Homicidal, Suicidal, threat to staff... and all critical care pts) @ -Yes this could be cancer and lead to morbidity and mortality Diagnosis/symptom? @ -Dyspnea Acute, or Chronic, or Acute on Chronic? @ -Acute Uncomplicated (without systemic symptoms) or Complicated (systemic symptoms)? @ -Complicated Side effects of treatment? @ -None Exacerbation, Progression, or Severe Exacerbation] @ -No Poses a threat to life or bodily function? @ -Yes this could lead to hypoxia and endorgan dysfunction - Lab Data Result diagrams: 08/16/24 12:58 08/16/24 12:58 Lab Results 08/16/24 08/16/24 08/16/24 Range/Units 12:58 12:58 12:58 WBC 13.9 H (3.8-10.6) k/uL RBC 4.72 (4.30-5.90) m/uL Hgb 14.8 (13.0-17.5) gm/dL Hct 46.2 (39.0-53.0) % MCV 98.0 (80.0-100.0) fL MCH 31.4 (25.0-35.0) pg MCHC 32.1 (31.0-37.0) g/dL RDW 13.9 (11.5-15.5) % Plt Count 538 H (150-450) k/uL MPV 7.3 Neutrophils % 82 % Lymphocytes % 13 % Monocytes % 3 % Eosinophils % 1 % Basophils % 0 % Neutrophils # 11.4 H (1.3-7.7) k/uL Lymphocytes # 1.8 (1.0-4.8) k/uL Monocytes # 0.4 (0-1.0) k/uL Eosinophils # 0.2 (0-0.7) k/uL Basophils # 0.1 (0-0.2) k/uL PT 11.1 (10.0-12.5) sec INR 1.0 (<1.2) APTT 30.0 (22.0-30.0) sec Sodium 136 L (137-145) mmol/L Potassium 4.8 (3.5-5.1) mmol/L Chloride 104 (98-107) mmol/L Carbon Dioxide 24 (22-30) mmol/L Anion Gap 8 mmol/L BUN 13 (9-20) mg/dL Creatinine 0.75 (0.66-1.25) mg/dL Est GFR (CKD-EPI)AfAm >90 (>60 ml/min/1.73 sqM) Est GFR (CKD-EPI)NonAf >90 (>60 ml/min/1.73 sqM) Glucose 186 H (74-99) mg/dL Plasma Lactic Acid Jase (0.7-2.0) mmol/L Calcium 9.0 (8.4-10.2) mg/dL Magnesium 1.8 (1.6-2.3) mg/dL Total Bilirubin 0.7 (0.2-1.3) mg/dL AST 25 (17-59) U/L ALT 21 (4-49) U/L Alkaline Phosphatase 85 (38-126) U/L Troponin I (0.000-0.034) ng/mL NT-Pro-B Natriuret Pep 193 pg/mL Total Protein 7.5 (6.3-8.2) g/dL Albumin 3.8 (3.5-5.0) g/dL 08/16/24 08/16/24 Range/Units 12:58 14:26 WBC (3.8-10.6) k/uL RBC (4.30-5.90) m/uL Hgb (13.0-17.5) gm/dL Hct (39.0-53.0) % MCV (80.0-100.0) fL MCH (25.0-35.0) pg MCHC (31.0-37.0) g/dL RDW (11.5-15.5) % Plt Count (150-450) k/uL MPV Neutrophils % % Lymphocytes % % Monocytes % % Eosinophils % % Basophils % % Neutrophils # (1.3-7.7) k/uL Lymphocytes # (1.0-4.8) k/uL Monocytes # (0-1.0) k/uL Eosinophils # (0-0.7) k/uL Basophils # (0-0.2) k/uL PT (10.0-12.5) sec INR (<1.2) APTT (22.0-30.0) sec Sodium (137-145) mmol/L Potassium (3.5-5.1) mmol/L Chloride (98-107) mmol/L Carbon Dioxide (22-30) mmol/L Anion Gap mmol/L BUN (9-20) mg/dL Creatinine (0.66-1.25) mg/dL Est GFR (CKD-EPI)AfAm (>60 ml/min/1.73 sqM) Est GFR (CKD-EPI)NonAf (>60 ml/min/1.73 sqM) Glucose (74-99) mg/dL Plasma Lactic Acid Jase 2.0 (0.7-2.0) mmol/L Calcium (8.4-10.2) mg/dL Magnesium (1.6-2.3) mg/dL Total Bilirubin (0.2-1.3) mg/dL AST (17-59) U/L ALT (4-49) U/L Alkaline Phosphatase (38-126) U/L Troponin I <0.012 (0.000-0.034) ng/mL NT-Pro-B Natriuret Pep pg/mL Total Protein (6.3-8.2) g/dL Albumin (3.5-5.0) g/dL Disposition Clinical Impression: Lung mass, Dyspnea Disposition: ADMITTED IP TO THIS HOSP Referrals: Patric Granda DO [Primary Care Provider] - 1-2 days Time of Disposition: 16:45
[2024-08-16 13:08] LABS: Basophils # (A) 0.1 k/uL (0-0.2); Basophils % (A) 0 %; Eosinophils # (A) 0.2 k/uL (0-0.7); Eosinophils % (A) 1 %; HCT 46.2 % (39.0-53.0); HGB 14.8 gm/dL (13.0-17.5); Lymphocytes # (A) 1.8 k/uL (1.0-4.8); Lymphocytes % (A) 13 %; MCH 31.4 pg (25.0-35.0); MCHC 32.1 g/dL (31.0-37.0); Mean Platelet Volume 7.3; Monocytes # (A) 0.4 k/uL (0-1.0); Monocytes % (A) 3 %; Neutrophils # (A) 11.4 k/uL (1.3-7.7); Neutrophils % (A) 82 %; Platelet Count 538 k/uL (150-450); RBC 4.72 m/uL (4.30-5.90); RDW 13.9 % (11.5-15.5); WBC 13.9 k/uL (3.8-10.6)
[2024-08-16] MEDS: ASPIRIN 81 MG PO STA (13:22)
[2024-08-16] MEDS: NITROGLYCERIN OINT 1 INCH/GM PACKET TOPICAL STA (13:23)
--- NOTE | 2024-08-16 13:28 | XR ---
EXAMINATION TYPE: XR chest 2V DATE OF EXAM: 08/16/2024 12:41 PM COMPARISON: Chest radiographs from 08/04/2024 CLINICAL INDICATION: Male, 54 years old with history of Chest Pain; PH TECHNIQUE: XR chest 2V Frontal and lateral views of the chest. FINDINGS: Lungs/Pleura: Airspace opacities projecting over the spine on lateral view. There is no evidence of p leural effusion, focal consolidation, or pneumothorax. Pulmonary vascularity: Unremarkable. Heart/mediastinum: Cardiomediastinal silhouette is unremarkable. Musculoskeletal: No acute osseous pathology. IMPRESSION: Airspace opacities projecting over the spine on lateral view new from prior correlate for pneumonia c onsider further evaluation with CT. [facility], , 08/16/2024 1:26 PM
[2024-08-16 13:30] LABS: ALT 21 U/L (4-49); African American GFR (CKD) >90 (>60 ml/min/1.73 sqM); Anion Gap 8 mmol/L; Blood Urea Nitrogen 13 mg/dL (9-20); Carbon Dioxide 24 mmol/L (22-30); Chloride 104 mmol/L (98-107); Glucose 186 mg/dL (74-99); Non-African American GFR(CKD) >90 (>60 ml/min/1.73 sqM); Sodium 136 mmol/L (137-145); Total Bilirubin 0.7 mg/dL (0.2-1.3)
[2024-08-16 13:37] LABS: NT-Pro-B-Type Natriuretic Pept 193 pg/mL
[2024-08-16 13:44] LABS: Prothrombin Time 11.1 sec (10.0-12.5)
[2024-08-16 14:16] LABS: AST 25 U/L (17-59); Albumin 3.8 g/dL (3.5-5.0); Alkaline Phosphatase 85 U/L (38-126); Magnesium 1.8 mg/dL (1.6-2.3); Potassium 4.8 mmol/L (3.5-5.1); Total Protein 7.5 g/dL (6.3-8.2)
--- NOTE | 2024-08-16 15:29 | CT ---
EXAMINATION TYPE: CT chest angio for PE DATE OF EXAM: 08/16/2024 2:58 PM COMPARISON: None. CLINICAL INDICATION: Male, 54 years old with history of Difficulty breathing, NICHELLE, SOB, R/O PE. TECHNIQUE: CT of the chest is performed on a spiral scan at 2 mm thick sections. Study is performed with intravenous contrast timed for evaluation for pulmonary embolism. This will limit additional po rtions of the evaluation. 3-D MIP images reconstructed by the technologist are reviewed on the compu ter in the coronal and sagittal planes. Contrast used:100 ml mL of Isovue 370 with IV Contrast, (none if empty) Oral contrast used: (none if empty) CT DLP: 1203.8 mGycm, Automated exposure control for dose reduction was used. FINDINGS: No persistent filling defects are evident to suggest an acute pulmonary embolism. No mediastinal or hilar adenopathy enlarged by CT criteria is evident. The ascending aorta diameter at the level of the main pulmonary artery is 3.5 cm. The main pulmonary artery diameter at the bifurcation is 3.3 cm. There is a left rib fracture with nonunion, image 84 There is an irregular mass in the posterior left lung measuring 9 x 7 cm. Within the adjacent pleural -based mass measures 2.1 cm. Workup for neoplasm is recommended. Nodules are in the left infrahilar r egion There are a few additional small nodules in the right posterior sulcus. These may have been present i n 2018. Limited CT sections were through the upper abdomen. Upper abdomen appears unremarkable IMPRESSION: 1. No acute pulmonary embolism. 2. Large lung mass posterior left lung base. Workup for neoplasm recommended [facility], Workstation: [facility], 08/16/2024 3:27 PM
[2024-08-16] MEDS: oxyCODONE-APAP 10-325MG 1 EACH TAB PO PRN (17:19)
[2024-08-16 20:16] LABS: Glucose,Whole Blood 224 mg/dL (70-110)
[2024-08-16] MEDS: SYMBICORT 80-4.5 MCG INHALER INHALATION SCH (20:28)
[2024-08-16] MEDS: ALBUTEROL NEBULIZED 2.5 MG/3 ML INHALATION SCH (20:28)
[2024-08-16] MEDS: DULoxetine HCL 30 MG CAPSULE.DR PO SCH (21:20)
[2024-08-16] MEDS: METOPROLOL TARTRATE 25 MG TAB PO SCH (21:20)
[2024-08-16] MEDS: PREGABALIN 100 MG CAP PO SCH (21:23)
[2024-08-16] MEDS: FUROSEMIDE 40 MG TAB PO SCH (21:23)
[2024-08-16] MEDS: APIXABAN 5 MG TAB PO SCH (21:23)
[2024-08-16] MEDS: traZODone HCL 50 MG TAB PO SCH (21:23)
[2024-08-16] MEDS: ATORVASTATIN 40 MG TAB PO SCH (21:24)
[2024-08-16] MEDS: oxyCODONE ER 10 MG TAB.ER.12H PO SCH (21:24)
[2024-08-16] MEDS: INSULIN DETEMIR (LEVEMIR) 100 UNIT/ML SYR SQ SCH (21:29)
[2024-08-16] MEDS: NAPROXEN 250 MG TAB PO SCH (21:53)
[2024-08-16] MEDS: AMITRIPTYLINE HCL 50 MG TAB PO SCH (21:53)
[2024-08-16] MEDS: PRAMIPEXOLE 0.25 MG TAB PO SCH (21:54)
[2024-08-16] MEDS: tiZANidine 4 MG TAB PO PRN (22:11)
[2024-08-17] MEDS ORDERED: IPRATROPIUM-ALBUTEROL 3 ML NEB INHALATION PRN (01:45)
[2024-08-17] MEDS: AZITHROMYCIN 500 MG in SODIUM CHLORIDE 0.9% 250 ML IVPB ONE (02:12)
[2024-08-17] MEDS ORDERED: VANCOMYCIN IV PER PHARMACY 1 EACH MISC MISCELLANE PRN (03:27)
--- NOTE | 2024-08-17 04:08 | P.CNPUL ---
History of Present Illness Consult date: 08/17/24 Requesting physician: Mikhail Butler Reason for consult: lung mass Chief complaint: progressively worsening shortness of breath x 2 months and left back pain History of present illness: Patient is a 54-year-old male with past medical history significant for left- sided empyema status post thoracotomy and lung decortication, atrial fibrillation, heart failure, diabetes mellitus, hyperlipidemia, hypertension, left thigh abscess, multiple orthopedic surgeries, COPD, and heavy previous tobacco use. Back in 2017, patient had a complicated pneumonia developing a parapneumonic effusion/empyema, and did undergo left thoracotomy with complete decortication of the left lung and cryoablation of intercostal nerves 5 through 8. More recently patient was admitted back in July, with heart failure and A-fib RVR. On August 12, he did undergo FRANSISCA with cardioversion and successful conversion to normal sinus rhythm. Patient was ultimately discharged home on August 13. He returns to the emergency department yesterday afternoon complaining of shortness of breath. He states that the shortness of breath has been ongoing actually for a couple months. Worse over the last day or so. He has had associated cough with copious green sputum production. He states that his back pain on the left with coughing and deep breathing. Denies any measured fevers, does report occasional chills. No anterior chest pain or hemoptysis. Chest x-ray showed a suspicious masslike opacity projecting over the spine in the lateral view. New from prior recent chest x-ray done 08/04/24. The concern is for pneumonia. Chest CTA was performed down in the ER, showing a large masslike consolidation in the posterior left lung base. Measuring 9 x 7 cm. There was an adjacent pleural-based mass measuring 2.1 cm. Does admit 20 lb weight loss within last month. Denies personal history of malignancy. CBC: WBC count 13.9, hemoglobin 14.8, hematocrit 46.2, platelets 538. Sodium 136, potassium 4.8, chloride 104, serum bicarb 24, BUN 13, creatinine 0.75, glucose 186. Lactic 2. LFTs unremarkable. Troponin less than 0.012. NT proBNP 193. I am evaluating this patient on the general medical floor. He is sitting up in bed on room air. SpO2 96% . No measured fevers. Nontoxic appearance. There is large amount of green purulent sputum in bedside collection basin. He does have a left thigh wound and states that he previously had I&D of an abscess in May of the year. Over the last couple weeks, the area has started to become hard and painful again and had purulent drainage. Review of Systems Constitutional: Reports chills, Reports fatigue, Denies fever, Denies night sweats, Denies poor appetite, Denies sweats, Denies weight gain, Denies weight loss Ears, nose, mouth and throat: Denies dysphagia, Denies headache, Denies nasal congestion, Denies nasal discharge, Denies post-nasal drip, Denies sinus pain, Denies sinus pressure, Denies sore throat Cardiovascular: Reports dyspnea on exertion, Denies chest pain, Denies irregular heart beat, Denies leg edema, Denies lightheadedness, Denies orthopnea, Denies palpitations, Denies paroxysmal nocturnal dyspnea, Denies syncope Respiratory: Reports congestion, Reports cough with sputum, Reports dyspnea, Reports pain on inspiration, Denies home oxygen, Denies wheezing Gastrointestinal: Denies abdominal pain, Denies constipation, Denies diarrhea, Denies nausea, Denies vomiting Genitourinary: Denies dysuria Musculoskeletal: Denies limitation of motion Integumentary: Reports wounds Neurological: Denies seizures, Denies syncope Psychiatric: Denies anxiety, Denies depression Past Medical History Past Medical History: Atrial Fibrillation, Chest Pain / Angina, Heart Failure, Diabetes Mellitus, Fibromyalgia, Hyperlipidemia, Hypertension, Pneumonia, Respiratory Disorder Additional Past Medical History / Comment(s): left outer thigh wound mostly healed, Left lung pneumonia/empyema, gout, chronic fibromyalgia, chronic lower back pain, degenerative arthritis, history of degenerative disc disease involv ing the lumbar spine, hypertension, hyperlipidemia, atrial fibrillation as the patient went into atrial fibrillation during her hospitalization for a left lower lobe pneumonia back in October 2017 and subsequently he converted back to normal sinus. He has chronic anxiety. NEUROPATHY History of Any Multi-Drug Resistant Organisms: None Reported Past Surgical History: Back Surgery, Joint Replacement, Orthopedic Surgery Additional Past Surgical History / Comment(s): rt hip replacement, rt knee replacement, left knee surgery with metal, neck fusion, lower back surgery, traumatic amputation rt index finger, left index finger tip amputation from injury. I & D LT THIGH X 6, LUNG SURGERY, COLONOSCOPY Past Anesthesia/Blood Transfusion Reactions: Blood Transfusion Reaction Additional Past Anesthesia/Blood Transfusion Reaction / Comment(s): pt states some limited neck movement due to previous surgery, " I got degenerative bone disease from a blood transfusion", "I woke up in the middle of knee surgery" Past Psychological History: No Psychological Hx Reported Additional Psychological History / Comment(s): He has a cane to ambulate and occasionally uses a walker. He drives. Smoking Status: Former smoker Past Alcohol Use History: Daily Additional Past Alcohol Use History / Comment(s): Pt started smoking in 1985 and has been a 3 ppd smoker, stopped smoking one month ago Past Drug Use History: None Reported Additional Drug Use History / Comment(s): Occasional medical marijuana for pain control. - Past Family History Mother Family Medical History: No Reported History Additional Family Medical History / Comment(s): enlarged heart Father Family Medical History: No Reported History Additional Family Medical History / Comment(s): Father lived to be 101 yrs old. Medications and Allergies Home Medications Medication Instructions Recorded Confirmed Type Albuterol Sulfate [Albuterol 2 puff INHALATION RT-Q6H 06/05/20 08/16/24 History Sulfate Hfa] DULoxetine HCL [Cymbalta] 30 mg PO BID 06/05/20 08/16/24 History Pregabalin [Lyrica] 200 mg PO TID 06/05/20 08/16/24 History oxyCODONE HCL/ACETAMINOPHEN 1 tab PO QID PRN 06/05/20 08/16/24 History [Percocet 10-325 mg] Fluticasone/Umeclidin/Vilanter 1 puff INHALATION RT-DAILY 04/05/22 08/16/24 History [Trelegy Ellipta 100-62.5-25] Milnacipran HCl [Savella] 100 mg PO DAILY 04/05/22 08/16/24 History Naproxen [Naprosyn] 500 mg PO BID 04/05/22 08/16/24 History tiZANidine [Zanaflex] 6 mg PO TID PRN 04/05/22 08/16/24 History Amitriptyline HCl [Elavil] 50 - 100 mg PO HS 02/25/24 08/16/24 History INSULIN ASPART (NovoLOG) [NovoLOG 5 unit SQ TID-W/MEALS 02/25/24 08/16/24 History (formulary)] Insulin Detemir (Levemir) [Levemir] 20 unit SQ BID 02/25/24 08/16/24 History Loratadine [Claritin] 10 mg PO DAILY 02/25/24 08/16/24 History Pramipexole Di-HCl [Mirapex] 0.75 mg PO HS 02/25/24 08/16/24 History oxyCODONE ER [OxyCONTIN] 10 mg PO Q12HR 02/25/24 08/16/24 History traZODone HCL 150 mg PO HS 08/04/24 08/16/24 History Amiodarone [Cordarone] 200 mg PO DAILY #30 tab 08/13/24 08/16/24 Rx Apixaban [Eliquis] 5 mg PO BID #60 tab 08/13/24 08/16/24 Rx Aspirin 81 mg PO DAILY #30 tab 08/13/24 08/16/24 Rx Atorvastatin [Lipitor] 40 mg PO HS #30 tablet 08/13/24 08/16/24 Rx Dapagliflozin Propanediol [Farxiga] 10 mg PO DAILY #30 tablet 08/13/24 08/16/24 Rx Furosemide [Lasix] 40 mg PO BID #60 tablet 08/13/24 08/16/24 Rx Metoprolol Tartrate [Lopressor] 75 mg PO DIRECTED 08/16/24 08/16/24 History Allergies Allergy/AdvReac Type Severity Reaction Status Date / Time No Known Allergies Allergy Verified 08/16/24 13:52 Physical Exam Vitals: Vital Signs Temp Pulse Pulse Resp BP BP Pulse Ox 08/17/24 01:37 97.6 F 69 18 91/56 96 08/17/24 01:14 90 08/17/24 01:05 88 08/16/24 20:45 96 08/16/24 20:37 96 08/16/24 19:40 97.5 F L 96 20 130/79 96 08/16/24 18:39 98.4 F 90 18 131/77 96 08/16/24 17:26 96 18 127/77 97 08/16/24 16:38 82 18 120/53 99 08/16/24 14:14 97.5 F L 74 20 138/84 96 08/16/24 13:25 80 20 149/87 97 08/16/24 12:10 97.6 F 89 20 129/77 97 Intake and Output 08/16/24 08/16/24 08/17/24 14:59 22:59 06:59 Other: Voiding Method Toilet # Voids 1 Weight 158.757 kg 158.757 kg GENERAL EXAM: Alert, 54-year-old obese male, sitting at the edge of the bed, comfortable in no apparent distress. HEAD: Normocephalic and atraumatic EYES: Normal reaction of pupils, equal size. NOSE: Clear with pink turbinates. THROAT: No erythema or exudates. NECK: No masses, no JVD. CHEST: No chest wall deformity. Remote appearing healed thoracotomy incision left posterior back LUNGS: Equal air entry with focal dullness of the posterior left lower lobe with inspiratory crackles. No wheezes or rhonchi. On room air. No conversational dyspnea or accessory muscle use.. CVS: S1 and S2 normal with no audible murmur, regular rhythm. No extra heart sounds ABDOMEN: No hepatosplenomegaly, active bowel sounds, no guarding or rigidity. SPINE: No scoliosis or deformity SKIN: No rashes. Left thigh wound with surrounding induration and erythema CENTRAL NERVOUS SYSTEM: No focal deficits, tone is normal in all 4 extremities. EXTREMITIES: There is bilateral lower extremity mild nonpitting edema. No clubbing, or cyanosis. Peripheral pulses are intact. Results - Laboratory Findings CBC and BMP: 08/16/24 12:58 08/16/24 12:58 PT/INR, D-dimer PT 11.1 sec (10.0-12.5) 08/16/24 12:58 INR 1.0 (<1.2) 08/16/24 12:58 Abnormal lab findings: Abnormal Labs 08/16/24 08/16/24 08/16/24 12:58 12:58 20:10 WBC 13.9 H Plt Count 538 H Neutrophils # 11.4 H Sodium 136 L Glucose 186 H POC Glucose (mg/dL) 224 H - Diagnostic Findings Chest x-ray: image reviewed CT scan - chest: image reviewed Assessment and Plan Assessment: Suspect left lower lobe pneumonia, HCAP, chest x-ray done on admission showing a new airspace retrocardiac opacity when compared to recent chest x-ray done on 08/04/2024. Better visualized on lateral view. A follow-up chest CT angio was done in the ER which demonstrated a large masslike consolidation measuring 9 x 7 cm within the posterior left lung base with adjacent pleural base nodular opacity measuring 2.1 cm. Malignancy is not entirely excluded. Acute dyspnea, secondary to above Acute leukocytosis History of complicated left lung pneumonia with development of empyema, status post left thoracotomy and complete lung decortication in 2018 Chronic obstructive pulmonary disease, inactive Former tobacco dependence, with over [id number] history Hypertension Hyperlipidemia Diabetes mellitus type 2 History of heart failure with mildly reduced ejection fraction of 45 to 50%, moderate mitral and tricuspid regurgitation, patent PFO History of atrial fibrillation status post FRANSISCA/cardioversion, currently normal sinus rhythm History of left thigh abscess status post I&D, patient is reporting increased pain, induration, and drainage Morbid obesity, with a BMI of 42.6 kg/m Plan: Patient's medications, labs, imaging reviewed I will start patient on broad-spectrum antibiotics Obtain sputum and blood cultures Recommend follow-up until resolution Maintenance COPD medications restarted, may substitute Symbicort for Trelegy if made available from home Obtain ultrasound of the left lower extremity and wound cultures Case will be reviewed by Dr. Juarez later today Statement I have personally seen and examined the patient, performed the documentation and the assessment and plan as written. Number of minutes spent on the visit:20 Time with Patient: Greater than 30
[2024-08-17] MEDS: VANCOMYCIN 2,500 MG in SODIUM CHLORIDE 0.9% 500 ML 500 ML IVPB ONE (04:37)
[2024-08-17] MEDS ORDERED: INSULIN ASPART (NovoLOG) 100 UNIT/ML VIAL SQ SCH (07:30)
[2024-08-17 07:34] LABS: Glucose,Whole Blood 126 mg/dL (70-110)
[2024-08-17] MEDS ORDERED: IPRATROPIUM 0.5 MG/2.5 ML NEBU INHALATION SCH (08:00)
[2024-08-17] MEDS: LORATADINE 10 MG TAB PO SCH (08:12)
[2024-08-17] MEDS: AMIODARONE 200 MG TAB PO SCH (08:12)
[2024-08-17] MEDS: ASPIRIN 81 MG PO SCH (08:12)
[2024-08-17] MEDS: DAPAGLIFLOZIN PROPANEDIOL 10 MG TABLET PO SCH (08:12)
[2024-08-17] MEDS: PIPERACILLIN-TAZOBACTAM 3.375 GM in SODIUM CHLORIDE 0.9% 100 ML IVPB SCH (08:12)
[2024-08-17] MEDS: INSULIN ASPART (NovoLOG) 100 UNIT/ML VIAL SQ SCH (08:13)
[2024-08-17] MEDS: INSULIN DETEMIR (LEVEMIR) 100 UNIT/ML SYR SQ SCH (08:13)
[2024-08-17] MEDS: SAVELLA 50 MG PO SCH (08:23)
[2024-08-17] MEDS: IPRATROPIUM-ALBUTEROL 3 ML NEB INHALATION SCH (09:06)
--- NOTE | 2024-08-17 09:09 | US ---
EXAMINATION TYPE: US extremity nonvasc mass LT DATE OF EXAM: 08/17/2024 COMPARISON: NONE CLINICAL INDICATION: Male, 54 years old with history of left thigh pain/induration and history of abs cess; Left thigh abscess TECHNIQUE: FINDINGS: Irregular hypoechoic area = 5.9 x 0.6 x 4.8cm left lateral thigh, within area of concern IMPRESSION: Subcutaneous suspected fluid collection possibly representing infection just beneath the skin surface. [facility], , 08/17/2024 9:07 AM
[2024-08-17] MEDS: SYMBICORT 160-4.5 MCG INHALER INHALATION SCH (09:20)
[2024-08-17] MEDS: oxyCODONE-APAP 10-325MG 1 EACH TAB PO PRN (11:00)
[2024-08-17 12:23] LABS: Glucose,Whole Blood 209 mg/dL (70-110)
--- NOTE | 2024-08-17 12:40 | P.HPIM ---
History of Present Illness 54-year-old male came in with complaints of shortness of breath and chest pain which is pleuritic in nature patient had a CT of the chest which showed infiltrate which has masslike contour patient was here in month of July with cough and green sputum production at the time patient was treated for pneumonia patient has slightly elevated white count BNP within normal limits no lactic acidosis. Patient also has wound on the left thigh which is mostly healed and likely scar although it was draining because of which ultrasound was obtained which showed fluid collection but clinically does not appear to be abscess although cultures were obtained from this location. REVIEW OF SYSTEMS: All other systems are negative except those mentioned in the HPI PHYSICAL EXAMINATION: GENERAL: The patient is alert and oriented x3, not in any acute distress. Well developed, well nourished. Obese HEENT: Pupils are round and equally reacting to light. EOMI. No scleral icterus. No conjunctival pallor. Normocephalic, atraumatic. No pharyngeal erythema. No thyromegaly. CARDIOVASCULAR: S1 and S2 present. No murmurs, rubs, or gallops. PULMONARY: Chest is clear to auscultation, no wheezing or crackles. ABDOMEN: Soft, nontender, nondistended, normoactive bowel sounds. No palpable organomegaly. MUSCULOSKELETAL: No joint swelling or deformity. EXTREMITIES: No cyanosis, clubbing, or pedal edema. NEUROLOGICAL: Gross neurological examination did not reveal any focal deficits. SKIN: Wound on the left lateral side of the thigh as mentioned above Assessment and plan -Possible left lower lobe pneumonia although cannot be excluded patient was started on antibiotics pulmonary evaluated the patient -Shortness of breath secondary to pneumonia -COPD without any significant acute exacerbation -Serous drainage from the left thigh local wound care but I do not believe patient will need antibiotics does not appear to be abscess -Type 2 diabetes mellitus -Hypertension -Hyperlipidemia -Congestive heart failure chronic systolic function EF of around 40 to 50% without any acute exacerbation patient was resumed on home regimen patient is euvolemic at this time-atrial fibrillation Had a history of FRANSISCA cardioversion presently sinus rhythm on anticoagulation with Eliquis which was continued -Obesity DVT prophylaxis: On Eliquis Past Medical History Past Medical History: Atrial Fibrillation, Chest Pain / Angina, Heart Failure, Diabetes Mellitus, Fibromyalgia, Hyperlipidemia, Hypertension, Pneumonia, Respiratory Disorder Additional Past Medical History / Comment(s): left outer thigh wound mostly healed, Left lung pneumonia/empyema, gout, chronic fibromyalgia, chronic lower back pain, degenerative arthritis, history of degenerative disc disease involving the lumbar spine, hypertension, hyperlipidemia, atrial fibrillation as the patient went into atrial fibrillation during her hospitalization for a left lower lobe pneumonia back in October 2017 and subsequently he converted back to normal sinus. He has chronic anxiety. NEUROPATHY History of Any Multi-Drug Resistant Organisms: None Reported Past Surgical History: Back Surgery, Joint Replacement, Orthopedic Surgery Additional Past Surgical History / Comment(s): rt hip replacement, rt knee replacement, left knee surgery with metal, neck fusion, lower back surgery, traumatic amputation rt index finger, left index finger tip amputation from injury. I & D LT THIGH X 6, LUNG SURGERY, COLONOSCOPY Past Anesthesia/Blood Transfusion Reactions: Blood Transfusion Reaction Additional Past Anesthesia/Blood Transfusion Reaction / Comment(s): pt states some limited neck movement due to previous surgery, " I got degenerative bone disease from a blood transfusion", "I woke up in the middle of knee surgery" Past Psychological History: No Psychological Hx Reported Additional Psychological History / Comment(s): He has a cane to ambulate and occasionally uses a walker. He drives. Smoking Status: Former smoker Past Alcohol Use History: Daily Additional Past Alcohol Use History / Comment(s): Pt started smoking in 1985 and has been a 3 ppd smoker, stopped smoking one month ago Past Drug Use History: None Reported Additional Drug Use History / Comment(s): Occasional medical marijuana for pain control. - Past Family History Mother Family Medical History: No Reported History Additional Family Medical History / Comment(s): enlarged heart Father Family Medical History: No Reported History Additional Family Medical History / Comment(s): Father lived to be 101 yrs old. Medications and Allergies Home Medications Medication Instructions Recorded Confirmed Type Albuterol Sulfate [Albuterol 2 puff INHALATION RT-Q6H 06/05/20 08/16/24 History Sulfate Hfa] DULoxetine HCL [Cymbalta] 30 mg PO BID 06/05/20 08/16/24 History Pregabalin [Lyrica] 200 mg PO TID 06/05/20 08/16/24 History oxyCODONE HCL/ACETAMINOPHEN 1 tab PO QID PRN 06/05/20 08/16/24 History [Percocet 10-325 mg] Fluticasone/Umeclidin/Vilanter 1 puff INHALATION RT-DAILY 04/05/22 08/16/24 History [Trelegy Ellipta 100-62.5-25] Milnacipran HCl [Savella] 100 mg PO DAILY 04/05/22 08/16/24 History Naproxen [Naprosyn] 500 mg PO BID 04/05/22 08/16/24 History tiZANidine [Zanaflex] 6 mg PO TID PRN 04/05/22 08/16/24 History Amitriptyline HCl [Elavil] 50 - 100 mg PO HS 02/25/24 08/16/24 History INSULIN ASPART (NovoLOG) [NovoLOG 5 unit SQ TID-W/MEALS 02/25/24 08/16/24 History (formulary)] Insulin Detemir (Levemir) [Levemir] 20 unit SQ BID 02/25/24 08/16/24 History Loratadine [Claritin] 10 mg PO DAILY 02/25/24 08/16/24 History Pramipexole Di-HCl [Mirapex] 0.75 mg PO HS 02/25/24 08/16/24 History oxyCODONE ER [OxyCONTIN] 10 mg PO Q12HR 02/25/24 08/16/24 History traZODone HCL 150 mg PO HS 08/04/24 08/16/24 History Amiodarone [Cordarone] 200 mg PO DAILY #30 tab 08/13/24 08/16/24 Rx Apixaban [Eliquis] 5 mg PO BID #60 tab 08/13/24 08/16/24 Rx Aspirin 81 mg PO DAILY #30 tab 08/13/24 08/16/24 Rx Atorvastatin [Lipitor] 40 mg PO HS #30 tablet 08/13/24 08/16/24 Rx Dapagliflozin Propanediol [Farxiga] 10 mg PO DAILY #30 tablet 08/13/24 08/16/24 Rx Furosemide [Lasix] 40 mg PO BID #60 tablet 08/13/24 08/16/24 Rx Metoprolol Tartrate [Lopressor] 75 mg PO DIRECTED 08/16/24 08/16/24 History Allergies Allergy/AdvReac Type Severity Reaction Status Date / Time No Known Allergies Allergy Verified 08/16/24 13:52 Physical Exam Vitals: Vital Signs Temp Pulse Pulse Resp BP BP Pulse Ox 08/17/24 11:51 84 08/17/24 11:43 88 08/17/24 09:19 92 08/17/24 09:09 86 08/17/24 07:41 98.2 F 72 17 123/76 95 08/17/24 01:37 97.6 F 69 18 91/56 96 08/17/24 01:14 90 08/17/24 01:05 88 08/16/24 20:45 96 08/16/24 20:37 96 08/16/24 19:40 97.5 F L 96 20 130/79 96 08/16/24 18:39 98.4 F 90 18 131/77 96 08/16/24 17:26 96 18 127/77 97 08/16/24 16:38 82 18 120/53 99 08/16/24 14:14 97.5 F L 74 20 138/84 96 08/16/24 13:25 80 20 149/87 97 Intake and Output 08/16/24 08/17/24 08/17/24 22:59 06:59 14:59 Intake Total 550 480 Balance 550 480 Intake: Intake, IV Titration 550 Amount Azithromycin 500 mg In 250 Sodium Chloride 0.9% 250 ml @ 250 mls/hr IVPB ONCE ONE Rx#:[id number] Vancomycin 2,500 mg In 250 Sodium Chloride 0.9% 500 ml 500 ml @ 167 mls/hr IVPB Q8H [facility] Rx#: [id number] cefTRIAXone 2 gm In 50 Sodium Chloride 0.9% 50 ml @ 100 mls/hr IVPB Q24H [facility] Rx#:[id number] Oral 480 Other: Voiding Method Toilet Toilet # Voids 1 1 Weight 158.757 kg Results CBC & Chem 7: 08/16/24 12:58 08/16/24 12:58 Labs: Abnormal Lab Results - Last 24 Hours (Table) 08/16/24 08/16/24 08/16/24 Range/Units 12:58 12:58 20:10 WBC 13.9 H (3.8-10.6) k/uL Plt Count 538 H (150-450) k/uL Neutrophils # 11.4 H (1.3-7.7) k/uL Sodium 136 L (137-145) mmol/L Glucose 186 H (74-99) mg/dL POC Glucose (mg/dL) 224 H (70-110) mg/dL 08/17/24 08/17/24 Range/Units 07:33 12:22 WBC (3.8-10.6) k/uL Plt Count (150-450) k/uL Neutrophils # (1.3-7.7) k/uL Sodium (137-145) mmol/L Glucose (74-99) mg/dL POC Glucose (mg/dL) 126 H 209 H (70-110) mg/dL Thrombosis Risk Factor Assmnt - Choose All That Apply Any of the Below Risk Factors Present?: Yes Each Factor Represents 1 point: Abnormal pulmonary function (COPD), Age 41-60 years, Obesity (BMI >25), Serious lung disease incl. pneumonia (< 1month) Thrombosis Risk Factor Assessment Total Risk Factor Score: 4 Thrombosis Risk Factor Assessment Level: Moderate Risk
[2024-08-17] MEDS ORDERED: VANCOMYCIN 2,500 MG in SODIUM CHLORIDE 0.9% 500 ML 500 ML IVPB SCH (13:00)
[2024-08-17 17:11] LABS: Glucose,Whole Blood 160 mg/dL (70-110)
[2024-08-17 20:03] LABS: Glucose,Whole Blood 166 mg/dL (70-110)
[2024-08-17] MEDS ORDERED: INSULIN DETEMIR (LEVEMIR) 100 UNIT/ML SYR SQ SCH (21:00)
[2024-08-18] MEDS ORDERED: AZITHROMYCIN 500 MG in SODIUM CHLORIDE 0.9% 250 ML IVPB SCH (02:00)
[2024-08-18 07:42] LABS: Glucose,Whole Blood 130 mg/dL (70-110)
[2024-08-18 08:51] LABS: HCT 41.8 % (39.6-50.0); HGB 13.5 g/dL (13.0-17.0); MCHC 32.3 g/dL (32.0-37.0); MCV 95.9 FL (80.0-97.0); Mean Platelet Volume 9.7 FL (9.5-12.2); NRBC Per 100 WBC 0 X 10*3/uL (0.00-0.01); Platelet Count 537 X 10*3/uL (140-440); RBC 4.36 X 10*6/uL (4.40-5.60); RDW 14.6 % (11.5-14.5); WBC 13.63 X 10*3/uL (4.50-10.00)
[2024-08-18 09:02] LABS: BUN/Creat Ratio 13.83 Ratio (12.00-20.00); Blood Urea Nitrogen 16.6 mg/dL (9.0-27.0); Calcium 9.1 mg/dL (8.7-10.3); Carbon Dioxide 26.9 mmol/L (21.6-31.8); Chloride 100 mmol/L (96-109); Glucose 133 mg/dL (70-110); Sodium 139 mmol/L (135-145)
[2024-08-18 12:30] LABS: Glucose,Whole Blood 178 mg/dL (70-110)
--- NOTE | 2024-08-18 13:00 | P.PN ---
Subjective Progress Note Date: 08/18/24 54-year-old male came in with complaints of shortness of breath and chest pain which is pleuritic in nature patient had a CT of the chest which showed infiltrate which has masslike contour patient was here in month of July with cough and green sputum production at the time patient was treated for pneumonia patient has slightly elevated white count BNP within normal limits no lactic acidosis. Patient also has wound on the left thigh which is mostly healed and likely scar although it was draining because of which ultrasound was obtained which showed fluid collection but clinically does not appear to be abscess although cultures were obtained from this location. August 18, 2024 Patient seen and examined at bedside. He states today that he does not have any chest pain or shortness of breath. Sputum cultures with mixed gram-positive cocci and gram-negative bacilli with moderate PMNs. Cultures of right thigh resulted with Proteus vulgaris. ID and surgery consulted. He continues on Zosyn. Labs today WBC 13.63, hemoglobin 13.5, sodium 139, potassium 5.0, bicarb 26.9, gap 12.1, glucose 133. Procalcitonin 0.10. REVIEW OF SYSTEMS: All other systems are negative except those mentioned in the HPI PHYSICAL EXAMINATION: GENERAL: The patient is alert and oriented x3, not in any acute distress. Well developed, well nourished. Obese HEENT: Pupils are round and equally reacting to light. EOMI. No scleral icterus. No conjunctival pallor. Normocephalic, atraumatic. No pharyngeal erythema. No thyromegaly. CARDIOVASCULAR: S1 and S2 present. No murmurs, rubs, or gallops. PULMONARY: Chest is clear to auscultation, no wheezing or crackles. ABDOMEN: Soft, nontender, nondistended, normoactive bowel sounds. No palpable organomegaly. MUSCULOSKELETAL: No joint swelling or deformity. EXTREMITIES: No cyanosis, clubbing, or pedal edema. NEUROLOGICAL: Gross neurological examination did not reveal any focal deficits. SKIN: Wound on the left lateral side of the thigh as mentioned above Assessment and plan -Possible left lower lobe pneumonia although cannot be excluded patient was started on antibiotics pulmonary evaluated the patient, pulmonology following -Shortness of breath secondary to pneumonia -COPD without any significant acute exacerbation -Serous drainage from the left thigh local wound care but I do not believe patient will need antibiotics does not appear to be abscess, ID and surgery consulted -Type 2 diabetes mellitus -Hypertension -Hyperlipidemia -Congestive heart failure chronic systolic function EF of around 40 to 50% without any acute exacerbation patient was resumed on home regimen patient is euvolemic at this time-atrial fibrillation Had a history of FRANSISCA cardioversion presently sinus rhythm on anticoagulation with Eliquis which was continued -Obesity DVT prophylaxis: On Eliquis Objective - Vital Signs Vital signs: Vital Signs Temp 97.8 F 08/18/24 07:41 Pulse 67 08/18/24 12:03 Resp 19 08/18/24 07:41 BP 138/53 08/18/24 07:41 Pulse Ox 94 L 08/18/24 07:41 FiO2 Intake & Output 08/17/24 08/18/24 08/18/24 18:59 06:59 18:59 Intake Total 3860 100 480 Balance 3860 100 480 Intake: Intake, IV Titration 200 100 Amount Piperacillin-Tazobactam 3 200 100 .375 gm In Sodium Chloride 0.9% 100 ml @ 25 mls/hr IVPB Q8HR [facility] Rx# :[id number] Oral [id number] [id number] Other: Voiding Method Toilet Toilet # Voids 8 2 - Labs CBC & Chem 7: 08/18/24 05:45 08/18/24 05:45 Labs: Abnormal Lab Results - Last 24 Hours (Table) 08/17/24 08/17/24 08/18/24 Range/Units 17:10 19:58 05:45 WBC 13.63 H (4.50-10.00) X 10*3/uL RBC 4.36 L (4.40-5.60) X 10*6/uL RDW 14.6 H (11.5-14.5) % Plt Count 537 H (140-440) X 10*3/uL Anion Gap (4.00-12.00) mmol/L Glucose (70-110) mg/dL POC Glucose (mg/dL) 160 H 166 H (70-110) mg/dL 08/18/24 08/18/24 08/18/24 Range/Units 05:45 07:41 12:28 WBC (4.50-10.00) X 10*3/uL RBC (4.40-5.60) X 10*6/uL RDW (11.5-14.5) % Plt Count (140-440) X 10*3/uL Anion Gap 12.10 H (4.00-12.00) mmol/L Glucose 133 H (70-110) mg/dL POC Glucose (mg/dL) 130 H 178 H (70-110) mg/dL Microbiology - Last 24 Hours (Table) 08/17/24 02:15 Gram Stain - Preliminary Thigh - Left Wound Culture - Preliminary Proteus vulgaris group 08/17/24 04:45 Gram Stain - Preliminary Sputum 08/16/24 14:26 Blood Culture - Preliminary Blood
--- NOTE | 2024-08-18 13:19 | P.GSCN ---
History of Present Illness Consult date: 08/18/24 History of present illness: CHIEF COMPLAINT: Shortness of breath and chest pain HISTORY OF PRESENT ILLNESS: This is a 54-year-old male who presented with shortness of breath and chest pain. He is being treated for suspected pneumonia. And pulmonary is following in regards to a masslike consolidation in the left lung. Surgical service is consulted in regards to a left thigh abscess. Patient had an infected seroma on the lateral left thigh in May. He had an incision and drainage of the seroma on 05/24/[address] Montano. Patient reports that he was having the area packed by home care service. He completed that treatment. He reports about 5 days ago the area drained a large amount of fluid spontaneously. He reports he did have some pain in that area but after the drainage the pain has decreased. He has minimal pain along the scar tissue area. Patient is currently on antibiotics. They were able to expel a small amount of fluid to obtain culture. Culture reports Proteus vulgaris. Ultrasound of the leg reports subcutaneous suspected fluid collection possibly representing infection just beneath the skin service. Patient is a diabetic. His hemoglobin A1c in July of this year was 6.5. Patient is on Eliquis for his atrial fibrillation. PAST MEDICAL HISTORY: Atrial Fibrillation, Chest Pain / Angina, Heart Failure, Diabetes Mellitus, Fibromyalgia, Hyperlipidemia, Hypertension, Pneumonia, Respiratory Disorder,left outer thigh wound mostly healed, Left lung pneumonia/empyema, gout, chronic fibromyalgia, chronic lower back pain, degenerative arthritis, history of degenerative disc disease involving the lumbar spine, hypertension, hyperlipidemia, atrial fibrillation as the patient went into atrial fibrillation during her hospitalization for a left lower lobe pneumonia back in October 2017 and subsequently he converted back to normal sinus. He has chronic anxiety. NEUROPATHY PAST SURGICAL HISTORY: rt hip replacement, rt knee replacement, left knee surgery with metal, neck fusion, lower back surgery, traumatic amputation rt index finger, left index finger tip amputation from injury. I & D LT THIGH X 6, LUNG SURGERY, COLONOSCOPY MEDICATIONS: See below ALLERGIES: See below SOCIAL HISTORY: No illicit drug use. REVIEW OF SYSTEMS: CONSTITUTIONAL: Denies fever or chills. HEENT: Denies blurred vision, vision changes, or eye pain. Denies hemoptysis CARDIOVASCULAR: Denies chest pain or pressure. RESPIRATORY: No shortness of breath. GASTROINTESTINAL: See HPI for pertinent findings HEMATOLOGIC: Denies bleeding disorders. GENITOURINARY: Denies any blood in urine or increased urinary frequency. SKIN: Denies pruitis. Denies rash. PHYSICAL EXAM: VITAL SIGNS: Reviewed GENERAL: Well-developed in no acute distress. HEENT: No sclera icterus. Extraocular movements grossly intact. Moist buccal mucosa. Head is atraumatic, normocephalic. No nasal drainage. ABDOMEN: Soft. Obese. Nondistended. Nontender NEUROLOGIC: Alert and oriented. Cranial nerves II through XII grossly intact. Extremities: Left lateral thigh wound with scar noted. Patient does have some mild tenderness with palpation to the upper portion of the scar. There is some scabbing noted. No drainage noted. No erythema. No induration. LABORATORY DATA: WBC 13.6 Hgb 13.5 platelets 537 Sodium 139 potassium is 5.0 creatinine 1.2 Lactic acid 2.0 IMAGING: Left thigh ultrasound reports subcutaneous suspected fluid collection possibly representing infection just beneath the skin surface. ASSESSMENT: 1. Left thigh wound with ultrasound reporting subcutaneous suspected fluid collection 2. Prior incision and drainage of seroma of the left thigh in May 2024 PLAN: -Further recommendations forthcoming per surgeon -Continue antibiotics -Continue supportive care Physician Stacker And Sorter Operator note has been reviewed by physician. Signing provider agrees with the documented findings, assessment, and plan of care. Past Medical History Past Medical History: Atrial Fibrillation, Chest Pain / Angina, Heart Failure, Diabetes Mellitus, Fibromyalgia, Hyperlipidemia, Hypertension, Pneumonia, Respiratory Disorder Additional Past Medical History / Comment(s): left outer thigh wound mostly healed, Left lung pneumonia/empyema, gout, chronic fibromyalgia, chronic lower back pain, degenerative arthritis, history of degenerative disc disease involving the lumbar spine, hypertension, hyperlipidemia, atrial fibrillation as the patient went into atrial fibrillation during her hospitalization for a left lower lobe pneumonia back in October 2017 and subsequently he converted back to normal sinus. He has chronic anxiety. NEUROPATHY History of Any Multi-Drug Resistant Organisms: None Reported Past Surgical History: Back Surgery, Joint Replacement, Orthopedic Surgery Additional Past Surgical History / Comment(s): rt hip replacement, rt knee replacement, left knee surgery with metal, neck fusion, lower back surgery, traumatic amputation rt index finger, left index finger tip amputation from injury. I & D LT THIGH X 6, LUNG SURGERY, COLONOSCOPY Past Anesthesia/Blood Transfusion Reactions: Blood Transfusion Reaction Additional Past Anesthesia/Blood Transfusion Reaction / Comm: pt states some limited neck movement due to previous surgery, " I got degenerative bone disease from a blood transfusion", "I woke up in the middle of knee surgery" Past Psychological History: No Psychological Hx Reported Additional Psychological History / Comment(s): He has a cane to ambulate and occasionally uses a walker. He drives. Smoking Status: Former smoker Past Alcohol Use History: Daily Additional Past Alcohol Use History / Comment(s): Pt started smoking in 1985 and has been a 3 ppd smoker, stopped smoking one month ago Past Drug Use History: None Reported Additional Drug Use History / Comment(s): Occasional medical marijuana for pain control. - Past Family History Mother Family Medical History: No Reported History Additional Family Medical History / Comment(s): enlarged heart Father Family Medical History: No Reported History Additional Family Medical History / Comment(s): Father lived to be 101 yrs old. Medications and Allergies Home Medications Medication Instructions Recorded Confirmed Type Albuterol Sulfate [Albuterol 2 puff INHALATION RT-Q6H 06/05/20 08/16/24 History Sulfate Hfa] DULoxetine HCL [Cymbalta] 30 mg PO BID 06/05/20 08/16/24 History Pregabalin [Lyrica] 200 mg PO TID 06/05/20 08/16/24 History oxyCODONE HCL/ACETAMINOPHEN 1 tab PO QID PRN 06/05/20 08/16/24 History [Percocet 10-325 mg] Fluticasone/Umeclidin/Vilanter 1 puff INHALATION RT-DAILY 04/05/22 08/16/24 History [Trelegy Ellipta 100-62.5-25] Milnacipran HCl [Savella] 100 mg PO DAILY 04/05/22 08/16/24 History Naproxen [Naprosyn] 500 mg PO BID 04/05/22 08/16/24 History tiZANidine [Zanaflex] 6 mg PO TID PRN 04/05/22 08/16/24 History Amitriptyline HCl [Elavil] 50 - 100 mg PO HS 02/25/24 08/16/24 History INSULIN ASPART (NovoLOG) [NovoLOG 5 unit SQ TID-W/MEALS 02/25/24 08/16/24 History (formulary)] Insulin Detemir (Levemir) [Levemir] 20 unit SQ BID 02/25/24 08/16/24 History Loratadine [Claritin] 10 mg PO DAILY 02/25/24 08/16/24 History Pramipexole Di-HCl [Mirapex] 0.75 mg PO HS 02/25/24 08/16/24 History oxyCODONE ER [OxyCONTIN] 10 mg PO Q12HR 02/25/24 08/16/24 History traZODone HCL 150 mg PO HS 08/04/24 08/16/24 History Amiodarone [Cordarone] 200 mg PO DAILY #30 tab 08/13/24 08/16/24 Rx Apixaban [Eliquis] 5 mg PO BID #60 tab 08/13/24 08/16/24 Rx Aspirin 81 mg PO DAILY #30 tab 08/13/24 08/16/24 Rx Atorvastatin [Lipitor] 40 mg PO HS #30 tablet 08/13/24 08/16/24 Rx Dapagliflozin Propanediol [Farxiga] 10 mg PO DAILY #30 tablet 08/13/24 08/16/24 Rx Furosemide [Lasix] 40 mg PO BID #60 tablet 08/13/24 08/16/24 Rx Metoprolol Tartrate [Lopressor] 75 mg PO DIRECTED 08/16/24 08/16/24 History Allergies Allergy/AdvReac Type Severity Reaction Status Date / Time No Known Allergies Allergy Verified 08/16/24 13:52 Surgical - Exam Vital Signs Temp Pulse Resp BP Pulse Ox 97.6 F 89 20 129/77 97 08/16/24 12:10 08/16/24 12:10 08/16/24 12:10 08/16/24 12:10 08/16/24 12:10 Results - Labs 08/18/24 05:45 08/18/24 05:45 Abnormal Lab Results - Last 24 Hours (Table) 08/17/24 08/17/24 08/18/24 Range/Units 17:10 19:58 05:45 WBC 13.63 H (4.50-10.00) X 10*3/uL RBC 4.36 L (4.40-5.60) X 10*6/uL RDW 14.6 H (11.5-14.5) % Plt Count 537 H (140-440) X 10*3/uL Anion Gap (4.00-12.00) mmol/L Glucose (70-110) mg/dL POC Glucose (mg/dL) 160 H 166 H (70-110) mg/dL 08/18/24 08/18/24 08/18/24 Range/Units 05:45 07:41 12:28 WBC (4.50-10.00) X 10*3/uL RBC (4.40-5.60) X 10*6/uL RDW (11.5-14.5) % Plt Count (140-440) X 10*3/uL Anion Gap 12.10 H (4.00-12.00) mmol/L Glucose 133 H (70-110) mg/dL POC Glucose (mg/dL) 130 H 178 H (70-110) mg/dL Microbiology - Last 24 Hours (Table) 08/17/24 02:15 Gram Stain - Preliminary Thigh - Left Wound Culture - Preliminary Proteus vulgaris group 08/17/24 04:45 Gram Stain - Preliminary Sputum 08/16/24 14:26 Blood Culture - Preliminary Blood Diabetes panel 08/18/24 Range/Units 05:45 Sodium 139 (135-145) mmol/L Potassium 5.0 (3.5-5.5) mmol/L Chloride 100 (96-109) mmol/L Carbon Dioxide 26.9 (21.6-31.8) mmol/L BUN 16.6 (9.0-27.0) mg/dL Creatinine 1.2 (0.6-1.5) mg/dL Glucose 133 H (70-110) mg/dL Calcium 9.1 (8.7-10.3) mg/dL Calcium panel 08/18/24 Range/Units 05:45 Calcium 9.1 (8.7-10.3) mg/dL Pituitary panel 08/18/24 Range/Units 05:45 Sodium 139 (135-145) mmol/L Potassium 5.0 (3.5-5.5) mmol/L Chloride 100 (96-109) mmol/L Carbon Dioxide 26.9 (21.6-31.8) mmol/L BUN 16.6 (9.0-27.0) mg/dL Creatinine 1.2 (0.6-1.5) mg/dL Glucose 133 H (70-110) mg/dL Calcium 9.1 (8.7-10.3) mg/dL Adrenal panel 08/18/24 Range/Units 05:45 Sodium 139 (135-145) mmol/L Potassium 5.0 (3.5-5.5) mmol/L Chloride 100 (96-109) mmol/L Carbon Dioxide 26.9 (21.6-31.8) mmol/L BUN 16.6 (9.0-27.0) mg/dL Creatinine 1.2 (0.6-1.5) mg/dL Glucose 133 H (70-110) mg/dL Calcium 9.1 (8.7-10.3) mg/dL
--- NOTE | 2024-08-18 15:24 | P.PN ---
Subjective Progress Note Date: 08/18/24 Patient is a 54-year-old male with past medical history significant for left- sided empyema status post thoracotomy and lung decortication, atrial fibrillation, heart failure, diabetes mellitus, hyperlipidemia, hypertension, left thigh abscess, multiple orthopedic surgeries, COPD, and heavy previous tobacco use. Back in 2017, patient had a complicated pneumonia developing a parapneumonic effusion/empyema, and did undergo left thoracotomy with complete decortication of the left lung and cryoablation of intercostal nerves 5 through 8. More recently patient was admitted back in July, with heart failure and A-fib RVR. On August 12, he did undergo FRANSISCA with cardioversion and successful conversion to normal sinus rhythm. Patient was ultimately discharged home on August 13. He returns to the emergency department yesterday afternoon complaining of shortness of breath. He states that the shortness of breath has been ongoing actually for a couple months. Worse over the last day or so. He has had associated cough with copious green sputum production. He states that his back pain on the left with coughing and deep breathing. Denies any measured fevers, does report occasional chills. No anterior chest pain or hemoptysis. Chest x-ray showed a suspicious masslike opacity projecting over the spine in the lateral view. New from prior recent chest x-ray done 08/04/24. The concern is for pneumonia. Chest CTA was performed down in the ER, showing a large masslike consolidation in the posterior left lung base. Measuring 9 x 7 cm. There was an adjacent pleural-based mass measuring 2.1 cm. Does admit 20 lb weight loss within last month. Denies personal history of malignancy. CBC: WBC count 13.9, hemoglobin 14.8, hematocrit 46.2, platelets 538. Sodium 136, potassium 4.8, chloride 104, serum bicarb 24, BUN 13, creatinine 0.75, glucose 186. Lactic 2. LFTs unremarkable. Troponin less than 0.012. NT proBNP 193. I am evaluating this patient on the general medical floor. He is sitting up in bed on room air. SpO2 96% . No measured fevers. Nontoxic appearance. There is large amount of green purulent sputum in bedside collection basin. He does have a left thigh wound and states that he previously had I&D of an abscess in May of the year. Over the last couple weeks, the area has started to become hard and painful again and had purulent drainage. The patient is seen today August 18, 2024 in follow-up on the regular medical floor. He is currently resting comfortably in bed. Awake and alert in no acute distress. He is maintaining good O2 saturations in the mid 90s on room air. He is afebrile. Hemodynamically stable. Sputum culture showing presumptive Staph aureus. Left thigh wound cultures showing Proteus vulgaris group. Blood culture pending. White count 13.6. Hemoglobin 13.5. Platelets 537. Sodium 139. Potassium 5.0. Bicarb 27. BUN 17. Creatinine 1.2. Glucose 133. He remains on bronchodilators. Antibiotics in the form of Zosyn. Remains on oral diuretics. Anticoagulated with Eliquis. Objective - Vital Signs Vital signs: Vital Signs Temp 97.7 F 08/18/24 12:29 Pulse 60 08/18/24 12:29 Resp 18 08/18/24 12:29 BP 145/67 08/18/24 12:29 Pulse Ox 95 08/18/24 12:29 FiO2 Intake & Output 08/17/24 08/18/24 08/18/24 18:59 06:59 18:59 Intake Total 3860 100 480 Balance 3860 100 480 Intake: Intake, IV Titration 200 100 Amount Piperacillin-Tazobactam 3 200 100 .375 gm In Sodium Chloride 0.9% 100 ml @ 25 mls/hr IVPB Q8HR [facility] Rx# :[id number] Oral [id number] 480 Other: Voiding Method Toilet Toilet # Voids 8 2 - Exam GENERAL EXAM: Alert, 54-year-old obese male,resting in bed, on room air, comfortable in no apparent distress. HEAD: Normocephalic and atraumatic EYES: Normal reaction of pupils, equal size. NOSE: Clear with pink turbinates. THROAT: No erythema or exudates. NECK: No masses, no JVD. CHEST: No chest wall deformity. Remote appearing healed thoracotomy incision left posterior back LUNGS: Equal air entry with focal dullness of the posterior left lower lobe with inspiratory crackles. No wheezes or rhonchi. CVS: S1 and S2 normal with no audible murmur, regular rhythm. No extra heart sounds ABDOMEN: No hepatosplenomegaly, active bowel sounds, no guarding or rigidity. SPINE: No scoliosis or deformity SKIN: No rashes. Left thigh wound with surrounding induration and erythema CENTRAL NERVOUS SYSTEM: No focal deficits, tone is normal in all 4 extremities. EXTREMITIES: There is bilateral lower extremity mild nonpitting edema. No clubbing, or cyanosis. Peripheral pulses are intact. - Labs CBC & Chem 7: 08/18/24 05:45 08/18/24 05:45 Labs: Abnormal Lab Results - Last 24 Hours (Table) 08/17/24 08/17/24 08/18/24 Range/Units 17:10 19:58 05:45 WBC 13.63 H (4.50-10.00) X 10*3/uL RBC 4.36 L (4.40-5.60) X 10*6/uL RDW 14.6 H (11.5-14.5) % Plt Count 537 H (140-440) X 10*3/uL Anion Gap (4.00-12.00) mmol/L Glucose (70-110) mg/dL POC Glucose (mg/dL) 160 H 166 H (70-110) mg/dL 08/18/24 08/18/24 08/18/24 Range/Units 05:45 07:41 12:28 WBC (4.50-10.00) X 10*3/uL RBC (4.40-5.60) X 10*6/uL RDW (11.5-14.5) % Plt Count (140-440) X 10*3/uL Anion Gap 12.10 H (4.00-12.00) mmol/L Glucose 133 H (70-110) mg/dL POC Glucose (mg/dL) 130 H 178 H (70-110) mg/dL Microbiology - Last 24 Hours (Table) 08/17/24 04:45 Gram Stain - Preliminary Sputum Sputum Culture - Preliminary Presumptive Staph aureus 08/17/24 02:15 Gram Stain - Preliminary Thigh - Left Wound Culture - Preliminary Proteus vulgaris group 08/16/24 14:26 Blood Culture - Preliminary Blood Assessment and Plan Assessment: Suspect left lower lobe pneumonia, HCAP, chest x-ray done on admission showing a new airspace retrocardiac opacity when compared to recent chest x-ray done on 08/04/2024. Better visualized on lateral view. A follow-up chest CT angio was done in the ER which demonstrated a large masslike consolidation measuring 9 x 7 cm within the posterior left lung base with adjacent pleural base nodular opacity measuring 2.1 cm. Malignancy is not entirely excluded. Interventional radiology declined biopsy. Continue antibiotics. Sputum culture revealing presumptive Staph aureus Acute dyspnea, secondary to above, stable and on room air Acute leukocytosis History of complicated left lung pneumonia with development of empyema, status post left thoracotomy and complete lung decortication in 2018 Chronic obstructive pulmonary disease, inactive Former tobacco dependence, with over [id number]-[id number] history Hypertension Hyperlipidemia Diabetes mellitus type 2 History of heart failure with mildly reduced ejection fraction of 45 to 50%, moderate mitral and tricuspid regurgitation, patent PFO History of atrial fibrillation status post FRANSISCA/cardioversion, currently normal sinus rhythm History of left thigh abscess status post I&D, patient is reporting increased pain, induration, and drainage. Cultures revealing Proteus vulgaris group Morbid obesity, with a BMI of 42.6 kg/m Plan: The patient was seen and evaluated Images, labs and medications reviewed Malignancy not excluded Interventional radiology declines biopsy Plan is to continue to treat for infection Cultures reviewed ID service consulted Currently on Zosyn Stable and on room air Will continue to follow I have personally seen and examined the patient, performed the documentation and the assessment and plan as written. Number of minutes spent on the visit: 10 Dictation was produced using [employer] dictation software. Please excuse any grammatical, word or spelling errors.
[2024-08-18] MEDS ORDERED: VANCOMYCIN IV PER PHARMACY 1 EACH MISC MISCELLANE PRN (15:43)
[2024-08-18] MEDS: CEFEPIME 2 GM in SODIUM CHLORIDE 0.9% 100 ML IVPB SCH (16:56)
[2024-08-18 17:02] LABS: Glucose,Whole Blood 135 mg/dL (70-110)
[2024-08-18] MEDS: VANCOMYCIN 2,250 MG in SODIUM CHLORIDE 0.9% 500 ML 500 ML IVPB SCH (17:56)
[2024-08-18 21:00] LABS: Glucose,Whole Blood 155 mg/dL (70-110)
[2024-08-18] MEDS: APIXABAN 5 MG TAB PO SCH (22:43)
--- NOTE | 2024-08-19 07:25 | P.CONS ---
History of Present Illness - Reason for Consult Consult date: 08/18/24 Left thigh wound - Chief Complaint Shortness of breath x 1 day - History of Present Illness Patient is a 54-year-old male with a past medical history significant for diabetes mellitus hypertension hyperlipidemia fibromyalgia heart failure atrial fibrillation patient apparently did have a seroma to the left thigh that was drained by Dr. Montano on May 24, 2024 culture at that time did grow Enterococcus faecium however the patient not very clear if he received any antibiotic for it the wound has been packed and subsequently closed with a recent admission to the hospital for different etiology patient mention getting out of the bed has irritated the area and is subsequently opened up with drainage of significant bloody secretions patient be complaining of pain describing it to be sharp to dull aching moderate intense without radiation, patient now presenting the hospital for evaluation of increasing shortness of breath that have been have been getting worse for a day patient denies having any chest pain he did have a cough with minimal sputum production whitish-santizo no nausea no vomiting no abdominal pain no diarrhea on presentation to the hospital patient was afebrile and no fever have been recorded subsequently patient was not tachycardic hypotensive or hypoxic he did have a white count of 13.9 with a left shift creatinine 0.75 electrolytes are normal liver enzymes are normal patient did have a left thigh culture growing Proteus will get a send sputum is growing presumptive Staph aureus patient did have a chest x-ray airspace opacity projecting over the spine on lateral view of the also have a CT angiogram of the chest no PE large lung mass posterior left lung base patient did receive a dose of vancomycin has been started on Zosyn infectious disease w as consulted for further management of antibiotic therapy Review of Systems Positive point and negatives has been mentioned in the HPI, complete review of systems was performed and all other systems are negative Past Medical History Past Medical History: Atrial Fibrillation, Chest Pain / Angina, Heart Failure, Diabetes Mellitus, Fibromyalgia, Hyperlipidemia, Hypertension, Pneumonia, Respiratory Disorder Additional Past Medical History / Comment(s): left outer thigh wound mostly healed, Left lung pneumonia/empyema, gout, chronic fibromyalgia, chronic lower back pain, degenerative arthritis, history of degenerative disc disease involving the lumbar spine, hypertension, hyperlipidemia, atrial fibrillation as the patient went into atrial fibrillation during her hospitalization for a left lower lobe pneumonia back in October 2017 and subsequently he converted back to normal sinus. He has chronic anxiety. NEUROPATHY History of Any Multi-Drug Resistant Organisms: None Reported Past Surgical History: Back Surgery, Joint Replacement, Orthopedic Surgery Additional Past Surgical History / Comment(s): rt hip replacement, rt knee replacement, left knee surgery with metal, neck fusion, lower back surgery, traumatic amputation rt index finger, left index finger tip amputation from injury. I & D LT THIGH X 6, LUNG SURGERY, COLONOSCOPY Past Anesthesia/Blood Transfusion Reactions: Blood Transfusion Reaction Additional Past Anesthesia/Blood Transfusion Reaction / Comm: pt states some limited neck movement due to previous surgery, " I got degenerative bone disease from a blood transfusion", "I woke up in the middle of knee surgery" Past Psychological History: No Psychological Hx Reported Additional Psychological History / Comment(s): He has a cane to ambulate and occasionally uses a walker. He drives. Smoking Status: Former smoker Past Alcohol Use History: Daily Additional Past Alcohol Use History / Comment(s): Pt started smoking in 1985 and has been a 3 ppd smoker, stopped smoking one month ago Past Drug Use History: None Reported Additional Drug Use History / Comment(s): Occasional medical marijuana for pain control. - Past Family History Mother Family Medical History: No Reported History Additional Family Medical History / Comment(s): enlarged heart Father Family Medical History: No Reported History Additional Family Medical History / Comment(s): Father lived to be 101 yrs old. Medications and Allergies Home Medications Medication Instructions Recorded Confirmed Type Albuterol Sulfate [Albuterol 2 puff INHALATION RT-Q6H 06/05/20 08/16/24 History Sulfate Hfa] DULoxetine HCL [Cymbalta] 30 mg PO BID 06/05/20 08/16/24 History Pregabalin [Lyrica] 200 mg PO TID 06/05/20 08/16/24 History oxyCODONE HCL/ACETAMINOPHEN 1 tab PO QID PRN 06/05/20 08/16/24 History [Percocet 10-325 mg] Fluticasone/Umeclidin/Vilanter 1 puff INHALATION RT-DAILY 04/05/22 08/16/24 History [Trelegy Ellipta 100-62.5-25] Milnacipran HCl [Savella] 100 mg PO DAILY 04/05/22 08/16/24 History Naproxen [Naprosyn] 500 mg PO BID 04/05/22 08/16/24 History tiZANidine [Zanaflex] 6 mg PO TID PRN 04/05/22 08/16/24 History Amitriptyline HCl [Elavil] 50 - 100 mg PO HS 02/25/24 08/16/24 History INSULIN ASPART (NovoLOG) [NovoLOG 5 unit SQ TID-W/MEALS 02/25/24 08/16/24 History (formulary)] Insulin Detemir (Levemir) [Levemir] 20 unit SQ BID 02/25/24 08/16/24 History Loratadine [Claritin] 10 mg PO DAILY 02/25/24 08/16/24 History Pramipexole Di-HCl [Mirapex] 0.75 mg PO HS 02/25/24 08/16/24 History oxyCODONE ER [OxyCONTIN] 10 mg PO Q12HR 02/25/24 08/16/24 History traZODone HCL 150 mg PO HS 08/04/24 08/16/24 History Amiodarone [Cordarone] 200 mg PO DAILY #30 tab 08/13/24 08/16/24 Rx Apixaban [Eliquis] 5 mg PO BID #60 tab 08/13/24 08/16/24 Rx Aspirin 81 mg PO DAILY #30 tab 08/13/24 08/16/24 Rx Atorvastatin [Lipitor] 40 mg PO HS #30 tablet 08/13/24 08/16/24 Rx Dapagliflozin Propanediol [Farxiga] 10 mg PO DAILY #30 tablet 08/13/24 08/16/24 Rx Furosemide [Lasix] 40 mg PO BID #60 tablet 08/13/24 08/16/24 Rx Metoprolol Tartrate [Lopressor] 75 mg PO DIRECTED 08/16/24 08/16/24 History Allergies Allergy/AdvReac Type Severity Reaction Status Date / Time No Known Allergies Allergy Verified 08/16/24 13:52 Physical Exam Vitals: Vital Signs Temp Pulse Pulse Resp BP Pulse Ox 08/18/24 12:03 67 08/18/24 11:54 64 08/18/24 08:49 92 08/18/24 08:39 90 08/18/24 07:41 97.8 F 59 L 19 138/53 94 L 08/18/24 01:50 97.5 F L 65 18 118/77 95 08/17/24 22:05 109/56 08/17/24 20:59 86 08/17/24 20:49 86 08/17/24 19:38 97.4 F L 91 20 105/60 91 L 08/17/24 15:38 86 08/17/24 15:29 90 08/17/24 13:07 98.1 F 76 16 131/76 95 Intake and Output 08/17/24 08/18/24 08/18/24 22:59 06:59 14:59 Intake Total 2300 100 480 Balance 2300 100 480 Intake: Intake, IV Titration 200 100 Amount Piperacillin-Tazobactam 3 200 100 .375 gm In Sodium Chloride 0.9% 100 ml @ 25 mls/hr IVPB Q8HR [facility] Rx# :[id number] Oral 2100 480 Other: Voiding Method Toilet # Voids 8 2 GENERAL DESCRIPTION: Middle-aged male lying in bed, no distress. No tachypnea or accessory muscle of respiration use. HEENT: Shows Pallor , no scleral icterus. Oral mucous membrane is dry. No pharyngeal erythema or thrush NECK: Trachea central, no thyromegaly. LUNGS: Unlabored breathing. Decreased intensity breath sounds HEART: S1, S2, regular rate and rhythm. No loud murmur ABDOMEN: Soft, no tenderness , guarding or rigidity, no organomegaly EXTREMITIES: Left lateral thigh did have small wound with bloodstained drainage SKIN: No rash, no masses palpable. NEUROLOGICAL: The patient is awake, alert, oriented x3, mood and affect normal. Results CBC & Chem 7: 08/18/24 05:45 08/18/24 05:45 Labs: Abnormal Lab Results - Last 24 Hours (Table) 08/17/24 08/17/24 08/18/24 Range/Units 17:10 19:58 05:45 WBC 13.63 H (4.50-10.00) X 10*3/uL RBC 4.36 L (4.40-5.60) X 10*6/uL RDW 14.6 H (11.5-14.5) % Plt Count 537 H (140-440) X 10*3/uL Anion Gap (4.00-12.00) mmol/L Glucose (70-110) mg/dL POC Glucose (mg/dL) 160 H 166 H (70-110) mg/dL 08/18/24 08/18/24 08/18/24 Range/Units 05:45 07:41 12:28 WBC (4.50-10.00) X 10*3/uL RBC (4.40-5.60) X 10*6/uL RDW (11.5-14.5) % Plt Count (140-440) X 10*3/uL Anion Gap 12.10 H (4.00-12.00) mmol/L Glucose 133 H (70-110) mg/dL POC Glucose (mg/dL) 130 H 178 H (70-110) mg/dL Microbiology - Last 24 Hours (Table) 08/17/24 02:15 Gram Stain - Preliminary Thigh - Left Wound Culture - Preliminary Proteus vulgaris group 08/17/24 04:45 Gram Stain - Preliminary Sputum 08/16/24 14:26 Blood Culture - Preliminary Blood Assessment and Plan (1) Abscess of left thigh Current Visit: Yes Status: Acute Code(s): L02.416 - CUTANEOUS ABSCESS OF LEFT LOWER LIMB SNOMED Code(s): 83636894471212192 (2) Lung mass Current Visit: Yes Status: Acute Code(s): R91.8 - OTHER NONSPECIFIC ABNORMAL FINDING OF LUNG FIELD SNOMED Code(s): 719528039 (3) Pneumonia Current Visit: No Status: Acute Code(s): J18.9 - PNEUMONIA, UNSPECIFIED ORGANISM SNOMED Code(s): 194756406 Plan: 1patient presented to hospital with increasing shortness of breath and this patient who did have CT imaging of the chest concerning for a lung mass underlying neoplasm not excluded pneumonia needs to be rule out with a sputum growing Staph aureus with a question of possible MRSA with recent admission to the hospital. 2left lateral thigh abscess culture coming back with Proteus sensitivities pending 3patient benefit from a CT to the left thigh to mention evidence of any deep fl uid collection that need to be drained 4we will discontinue Zosyn 5start the patient on cefepime 2 g every 8 hours and vancomycin pharmacy to dose to go for due to pathogen growing in the sputum in the left lateral thigh We will follow on clinical condition and cultures to further adjust medication if needed Thank you for this consultation we will follow the patient along with you Dictation was produced using [employer] software. please excuse any grammatical, word or spelling errors. Time with Patient: Greater than 30
[2024-08-19 07:52] LABS: Glucose,Whole Blood 144 mg/dL (70-110)
[2024-08-19] MEDS: diphenhydrAMINE 25 MG CAP PO PRN (08:29)
[2024-08-19] MEDS: VANCOMYCIN 2,250 MG in SODIUM CHLORIDE 0.9% 500 ML 500 ML IVPB SCH (09:34)
--- NOTE | 2024-08-19 09:59 | CT ---
EXAMINATION TYPE: CT lower extremity LT wo con DATE OF EXAM: 08/19/2024 COMPARISON: None CLINICAL INDICATION: Male, 54 years old with history of Left lateral thigh draining wound ?abscess; P HH, LEFT THIGH PAIN CT DLP: 1995.3 mGycm Automated exposure control for dose reduction was used. Findings: The soft tissues and visualized left hemipelvis and left thigh are normal without evidence of abscess . The thigh musculature appears normal. There is a focal area of increased density in the subcutaneou s tissues of the lateral left thigh small focal inflammation/edema there is no underlying abscess or discrete fluid collection. Marked subchondral cysts in the left humeral head with hypertrophic spurring of the head consistent w ith degenerative arthritis. There is no fracture or focal intraosseous abnormality of the left femur. There is a left knee prosthesis. IMPRESSION: Small focal area of increased density in the subcutaneous soft tissues extending to the dermis the la teral left thigh consistent with a small focal area of inflammation or possibly ulcer. There is no un derlying abscess or discrete fluid collection within the soft tissues including musculature of the le ft side. There are degenerative changes left hip joint but no focal osseous abnormality. [facility], Workstation: MARILU 08/19/2024 9:56 AM
[2024-08-19 10:07] LABS: HCT 42.2 % (39.6-50.0); HGB 13.8 g/dL (13.0-17.0); MCH 31.4 pg (27.0-32.0); MCHC 32.7 g/dL (32.0-37.0); MCV 96.1 FL (80.0-97.0); Mean Platelet Volume 9.7 FL (9.5-12.2); NRBC Per 100 WBC 0 X 10*3/uL (0.00-0.01); Platelet Count 541 X 10*3/uL (140-440); RBC 4.39 X 10*6/uL (4.40-5.60); RDW 14.7 % (11.5-14.5); WBC 12.18 X 10*3/uL (4.50-10.00)
[2024-08-19 10:24] LABS: Blood Urea Nitrogen 17.7 mg/dL (9.0-27.0); Calcium 9.1 mg/dL (8.7-10.3); Carbon Dioxide 25.2 mmol/L (21.6-31.8); Chloride 101 mmol/L (96-109); Glucose 132 mg/dL (70-110); Sodium 139 mmol/L (135-145)
[2024-08-19 12:17] LABS: Glucose,Whole Blood 183 mg/dL (70-110)
--- NOTE | 2024-08-19 13:25 | P.PN ---
Subjective Progress Note Date: 08/19/24 Patient is a 54-year-old male with past medical history significant for left- sided empyema status post thoracotomy and lung decortication, atrial fibrillation, heart failure, diabetes mellitus, hyperlipidemia, hypertension, left thigh abscess, multiple orthopedic surgeries, COPD, and heavy previous tobacco use. Back in 2017, patient had a complicated pneumonia developing a parapneumonic effusion/empyema, and did undergo left thoracotomy with complete decortication of the left lung and cryoablation of intercostal nerves 5 through 8. More recently patient was admitted back in July, with heart failure and A-fib RVR. On August 12, he did undergo FRANSISCA with cardioversion and successful conversion to normal sinus rhythm. Patient was ultimately discharged home on August 13. He returns to the emergency department yesterday afternoon complaining of shortness of breath. He states that the shortness of breath has been ongoing actually for a couple months. Worse over the last day or so. He has had associated cough with copious green sputum production. He states that his back pain on the left with coughing and deep breathing. Denies any measured fevers, does report occasional chills. No anterior chest pain or hemoptysis. Chest x-ray showed a suspicious masslike opacity projecting over the spine in the lateral view. New from prior recent chest x-ray done 08/04/24. The concern is for pneumonia. Chest CTA was performed down in the ER, showing a large masslike consolidation in the posterior left lung base. Measuring 9 x 7 cm. There was an adjacent pleural-based mass measuring 2.1 cm. Does admit 20 lb weight loss within last month. Denies personal history of malignancy. CBC: WBC count 13.9, hemoglobin 14.8, hematocrit 46.2, platelets 538. Sodium 136, potassium 4.8, chloride 104, serum bicarb 24, BUN 13, creatinine 0.75, glucose 186. Lactic 2. LFTs unremarkable. Troponin less than 0.012. NT proBNP 193. I am evaluating this patient on the general medical floor. He is sitting up in bed on room air. SpO2 96% . No measured fevers. Nontoxic appearance. There is large amount of green purulent sputum in bedside collection basin. He does have a left thigh wound and states that he previously had I&D of an abscess in May of the year. Over the last couple weeks, the area has started to become hard and painful again and had purulent drainage. The patient is seen today August 18, 2024 in follow-up on the regular medical floor. He is currently resting comfortably in bed. Awake and alert in no acute distress. He is maintaining good O2 saturations in the mid 90s on room air. He is afebrile. Hemodynamically stable. Sputum culture showing presumptive Staph aureus. Left thigh wound cultures showing Proteus vulgaris group. Blood culture pending. White count 13.6. Hemoglobin 13.5. Platelets 537. Sodium 139. Potassium 5.0. Bicarb 27. BUN 17. Creatinine 1.2. Glucose 133. He remains on bronchodilators. Antibiotics in the form of Zosyn. Remains on oral diuretics. Anticoagulated with Eliquis. The patient is seen today August 19, 2024 in follow-up on the regular medical floor. He is currently sitting up in bed. Awake and alert in no acute distress. Denies any worsening shortness of breath, cough or congestion. He states he is feeling better today compared to yesterday. Continues to maintain good O2 saturations in the 90s on room air. He is afebrile. Hemodynamically stable. Wound culture positive for Proteus vulgaris. Sputum culture positive for MRSA. White count 12.1. Hemoglobin 13.8. Platelets 541. Sodium 139. Potassium 5.0. Bicarb 25. BUN 18. Creatinine 1.0. Glucose 132. He remains on bronchodilators. Remains on cefepime and vancomycin. Objective - Vital Signs Vital signs: Vital Signs Temp 98.4 F 08/19/24 07:49 Pulse 64 08/19/24 12:16 Resp 19 08/19/24 07:49 BP 104/61 08/19/24 07:49 Pulse Ox 95 08/19/24 07:49 FiO2 Intake & Output 08/18/24 08/19/24 08/19/24 18:59 06:59 18:59 Intake Total 1967 777 Balance 1967 Intake: Oral 1967 Other: # Voids 3 3 - Exam GENERAL EXAM: Alert, pleasant 54-year-old obese male, sitting up at the bedside, on room air, in no apparent distress. HEAD: Normocephalic and atraumatic EYES: Normal reaction of pupils, equal size. NOSE: Clear with pink turbinates. THROAT: No erythema or exudates. NECK: No masses, no JVD. CHEST: No chest wall deformity. Remote appearing healed thoracotomy incision left posterior back LUNGS: Equal air entry with focal dullness of the posterior left lower lobe with inspiratory crackles. No wheezes or rhonchi. CVS: S1 and S2 normal with no audible murmur, regular rhythm. No extra heart sounds ABDOMEN: No hepatosplenomegaly, active bowel sounds, no guarding or rigidity. SPINE: No scoliosis or deformity SKIN: No rashes. Left thigh wound with surrounding induration and erythema CENTRAL NERVOUS SYSTEM: No focal deficits, tone is normal in all 4 extremities. EXTREMITIES: There is bilateral lower extremity mild nonpitting edema. No clubbing, or cyanosis. Peripheral pulses are intact. - Labs CBC & Chem 7: 08/19/24 05:25 08/19/24 05:25 Labs: Abnormal Lab Results - Last 24 Hours (Table) 08/18/24 08/18/24 08/19/24 Range/Units 17:00 20:58 05:25 WBC 12.18 H (4.50-10.00) X 10*3/uL RBC 4.39 L (4.40-5.60) X 10*6/uL RDW 14.7 H (11.5-14.5) % Plt Count 541 H (140-440) X 10*3/uL Anion Gap (4.00-12.00) mmol/L Glucose (70-110) mg/dL POC Glucose (mg/dL) 135 H 155 H (70-110) mg/dL 08/19/24 08/19/24 08/19/24 Range/Units 05:25 07:51 12:15 WBC (4.50-10.00) X 10*3/uL RBC (4.40-5.60) X 10*6/uL RDW (11.5-14.5) % Plt Count (140-440) X 10*3/uL Anion Gap 12.80 H (4.00-12.00) mmol/L Glucose 132 H (70-110) mg/dL POC Glucose (mg/dL) 144 H 183 H (70-110) mg/dL Microbiology - Last 24 Hours (Table) 08/17/24 02:15 Anaerobic Culture - Preliminary Thigh - Left 08/17/24 02:15 Gram Stain - Final Thigh - Left Wound Culture - Final Proteus vulgaris group 08/17/24 04:45 Gram Stain - Final Sputum Sputum Culture - Final Methicillin resist S. aureus 08/16/24 14:26 Blood Culture - Preliminary Blood Assessment and Plan Assessment: Suspect left lower lobe pneumonia, HCAP, chest x-ray done on admission showing a new airspace retrocardiac opacity when compared to recent chest x-ray done on 08/04/2024. Better visualized on lateral view. A follow-up chest CT angio was done in the ER which demonstrated a large masslike consolidation measuring 9 x 7 cm within the posterior left lung base with adjacent pleural base nodular opacity measuring 2.1 cm. Continue antibiotics. Sputum culture revealing MRSA Acute dyspnea, secondary to above, stable and on room air Acute leukocytosis History of complicated left lung pneumonia with development of empyema, status post left thoracotomy and complete lung decortication in 2018 Chronic obstructive pulmonary disease, inactive Former tobacco dependence, with over [id number] history Hypertension Hyperlipidemia Diabetes mellitus type 2 History of heart failure with mildly reduced ejection fraction of 45 to 50%, moderate mitral and tricuspid regurgitation, patent PFO History of atrial fibrillation status post FRANSISCA/cardioversion, currently normal sinus rhythm History of left thigh abscess status post I&D, patient is reporting increased pain, induration, and drainage. Cultures revealing Proteus vulgaris group Morbid obesity, with a BMI of 42.6 kg/m Plan: The patient was seen and evaluated Labs and medications reviewed Sputum culture positive for MRSA Remains on vancomycin and cefepime Cultures reviewed Stable and on room air Will continue to follow I have personally seen and examined the patient, performed the documentation and the assessment and plan as written. Number of minutes spent on the visit: 10 Dictation was produced using [employer] software. Please excuse any grammatical, word or spelling errors.
--- NOTE | 2024-08-19 13:40 | P.PN ---
Progress Note - Text Progress Note Date: 08/19/24 [facility] coverage I was asked about possible drainage of subcutaneous fluid collection at a a prior left thigh excision site. The area drained serosanguinous fluid a week ago and none since then. Javi thinks the area feels fine now. No fluctuance at the site on exam. the US report was reviewed. The CT shows no fluid collection in the area. No fluid to drain by exam or CT.
--- NOTE | 2024-08-19 14:09 | P.PN ---
Subjective Progress Note Date: 08/19/24 Principal diagnosis: Reason for follow-up is MRSA pneumonia left thigh wound cellulitis Patient is a 54-year-old male with a past medical history significant for diabetes mellitus hypertension hyperlipidemia fibromyalgia heart failure atrial fibrillation patient apparently did have a seroma to the left thigh that was drained by Dr. Montano on May 24, 2024 culture at that time did grow Enterococcus faecium, now presented to hospital mostly with increasing shortness of breath did have a CT of the chest with the left lung mass/pneumonia sputum is growing MRSA did have a CT of the left thigh did not mention any drainable abscess culture positive for Proteus. On today's evaluation that is 08/19/2024, patient did not have any fever and denies any chills, patient is breathing comfortably on room air, patient with no chest pain or any worsening cough patient did not have any abdominal pain nausea vomiting or any loose stools, denies pain to the left thigh he has developed a rash however mention getting slightly better. Patient white count is down to 12.18, creat is 1.0 sputum with MRSA left thigh culture with Proteus blood cultures pending Objective - Vital Signs Vital signs: Vital Signs Temp 98 F 08/19/24 01:57 Pulse 72 08/19/24 08:21 Resp 16 08/19/24 01:57 BP 117/56 08/19/24 01:57 Pulse Ox 94 L 08/19/24 01:57 FiO2 Intake & Output 08/18/24 08/19/24 08/19/24 18:59 06:59 18:59 Intake Total 1967 Balance 1967 Intake: Oral 1967 Other: # Voids 3 3 - Exam GENERAL DESCRIPTION: Middle-age male lying in bed in no distress RESPIRATORY SYSTEM: Unlabored breathing , decreased breath sounds at bases HEART: S1 S2 regular rate and rhythm , ABDOMEN: Soft , no tenderness SKIN: Did have diffuse maculopapular rash no vesicle - Labs CBC & Chem 7: 08/19/24 05:25 08/19/24 05:25 Labs: Abnormal Lab Results - Last 24 Hours (Table) 08/18/24 08/18/24 08/18/24 Range/Units 12:28 17:00 20:58 WBC (4.50-10.00) X 10*3/uL RBC (4.40-5.60) X 10*6/uL RDW (11.5-14.5) % Plt Count (140-440) X 10*3/uL Anion Gap (4.00-12.00) mmol/L Glucose (70-110) mg/dL POC Glucose (mg/dL) 178 H 135 H 155 H (70-110) mg/dL 08/19/24 08/19/24 08/19/24 Range/Units 05:25 05:25 07:51 WBC 12.18 H (4.50-10.00) X 10*3/uL RBC 4.39 L (4.40-5.60) X 10*6/uL RDW 14.7 H (11.5-14.5) % Plt Count 541 H (140-440) X 10*3/uL Anion Gap 12.80 H (4.00-12.00) mmol/L Glucose 132 H (70-110) mg/dL POC Glucose (mg/dL) 144 H (70-110) mg/dL Microbiology - Last 24 Hours (Table) 08/17/24 02:15 Gram Stain - Final Thigh - Left Wound Culture - Final Proteus vulgaris group 08/17/24 04:45 Gram Stain - Final Sputum Sputum Culture - Final Methicillin resist S. aureus 08/16/24 14:26 Blood Culture - Preliminary Blood Assessment and Plan (1) Abscess of left thigh Current Visit: Yes Status: Acute Code(s): L02.416 - CUTANEOUS ABSCESS OF LEFT LOWER LIMB SNOMED Code(s): 35157522914868551 (2) Lung mass Current Visit: Yes Status: Acute Code(s): R91.8 - OTHER NONSPECIFIC ABNORMAL FINDING OF LUNG FIELD SNOMED Code(s): 831720251 (3) Pneumonia Current Visit: No Status: Acute Code(s): J18.9 - PNEUMONIA, UNSPECIFIED ORGANISM SNOMED Code(s): 295779606 (4) Drug rash Current Visit: Yes Status: Acute Code(s): L27.0 - GEN SKIN ERUPTION DUE TO DRUGS AND MEDS TAKEN INTERNALLY SNOMED Code(s): 69371373 Plan: 1patient presented to hospital with increasing shortness of breath and this patient who did have CT imaging of the chest concerning for a lung mass underlying neoplasm not excluded pneumonia needs to be rule out with a sputum growing Staph aureus which has been finalized with MRSA likely competent of pneumonia 2left lateral thigh abscess culture coming back with Proteus that is sensitive to cefepime patient on as well as to Cipro and Bactrim DS patient did have CT of the left thigh did not mention any abscess that need to be drained 3patient has developed a maculopapular rash more likely related to beta-lactam than the vancomycin 4we will discontinue cefepime add Bactrim DS to cover for the left thigh wound cellulitis and will continue with the vancomycin for his MRSA pneumonia cannot use Zyvox because of drug interaction Dictation was produced using [employer] software. please excuse any grammatical, word or spelling errors. Time with Patient: Less than 30
--- NOTE | 2024-08-19 14:30 | P.PN ---
Subjective Progress Note Date: 08/19/24 54-year-old male came in with complaints of shortness of breath and chest pain which is pleuritic in nature patient had a CT of the chest which showed infiltrate which has masslike contour patient was here in month of July with cough and green sputum production at the time patient was treated for pneumonia patient has slightly elevated white count BNP within normal limits no lactic acidosis. Patient also has wound on the left thigh which is mostly healed and likely scar although it was draining because of which ultrasound was obtained which showed fluid collection but clinically does not appear to be abscess although cultures were obtained from this location. August 18, 2024 Patient seen and examined at bedside. He states today that he does not have any chest pain or shortness of breath. Sputum cultures with mixed gram-positive cocci and gram-negative bacilli with moderate PMNs. Cultures of right thigh resulted with Proteus vulgaris. ID and surgery consulted. He continues on Zosyn. Labs today WBC 13.63, hemoglobin 13.5, sodium 139, potassium 5.0, bicarb 26.9, gap 12.1, glucose 133. Procalcitonin 0.10. August 19, 2024 Patient seen and examined at bedside. He is denying chest pain and shortness of breath, however does endorse new maculopapular rash throughout the body that he states began yesterday, likely from beta-lactam. Sputum cultures resulted in MRSA. ID and surgery following, notes reviewed. Pulmonology following notes reviewed, no biopsy of the lung will be performed by IR at this time as feeling mass is mostly inflammatory or infectious rather than malignant. He we will continue with vancomycin, and add Bactrim, discontinued cefepime. Labs today WBC 12.1, hemoglobin 13.8, sodium 139, potassium 5.0, bicarb 25.2, gap 12.80, glucose 183. REVIEW OF SYSTEMS: All other systems are negative except those mentioned in the HPI PHYSICAL EXAMINATION: GENERAL: The patient is alert and oriented x3, not in any acute distress. Well developed, well nourished. Obese HEENT: Pupils are round and equally reacting to light. EOMI. No scleral icterus. No conjunctival pallor. Normocephalic, atraumatic. No pharyngeal erythema. No thyromegaly. CARDIOVASCULAR: S1 and S2 present. No murmurs, rubs, or gallops. PULMONARY: Chest is clear to auscultation, no wheezing or crackles. ABDOMEN: Soft, nontender, nondistended, normoactive bowel sounds. No palpable organomegaly. MUSCULOSKELETAL: No joint swelling or deformity. EXTREMITIES: No cyanosis, clubbing, or pedal edema. NEUROLOGICAL: Gross neurological examination did not reveal any focal deficits. SKIN: Wound on the left lateral side of the thigh as mentioned above, maculopapular rash throughout body Assessment and plan -left lower lobe pneumonia although malignancy cannot be excluded patient was started on antibiotics, continue Bactrim and vancomycin discontinue cefepime, pulmonology, ID following MRSA infection treated as above -Shortness of breath secondary to pneumonia -COPD without any significant acute exacerbation -Serous drainage from the left thigh local wound care, ID and surgery following Drug reaction likely due to beta-lactam, Benadryl 25 mg as needed -Type 2 diabetes mellitus -Hypertension -Hyperlipidemia -Congestive heart failure chronic systolic function EF of around 40 to 50% without any acute exacerbation patient was resumed on home regimen patient is e uvolemic at this time-atrial fibrillation Had a history of FRANSISCA cardioversion presently sinus rhythm on anticoagulation with Eliquis which was continued -Obesity DVT prophylaxis: On Eliquis Objective - Vital Signs Vital signs: Vital Signs Temp 98.4 F 08/19/24 07:49 Pulse 64 08/19/24 12:16 Resp 19 08/19/24 07:49 BP 104/61 08/19/24 07:49 Pulse Ox 95 08/19/24 07:49 FiO2 Intake & Output 08/18/24 08/19/24 08/19/24 18:59 06:59 18:59 Intake Total 1967 777 Balance 1967 777 Intake: Oral 1967 777 Other: # Voids 3 3 - Labs CBC & Chem 7: 08/19/24 05:25 08/19/24 05:25 Labs: Abnormal Lab Results - Last 24 Hours (Table) 08/18/24 08/18/24 08/19/24 Range/Units 17:00 20:58 05:25 WBC 12.18 H (4.50-10.00) X 10*3/uL RBC 4.39 L (4.40-5.60) X 10*6/uL RDW 14.7 H (11.5-14.5) % Plt Count 541 H (140-440) X 10*3/uL Anion Gap (4.00-12.00) mmol/L Glucose (70-110) mg/dL POC Glucose (mg/dL) 135 H 155 H (70-110) mg/dL 08/19/24 08/19/24 08/19/24 Range/Units 05:25 07:51 12:15 WBC (4.50-10.00) X 10*3/uL RBC (4.40-5.60) X 10*6/uL RDW (11.5-14.5) % Plt Count (140-440) X 10*3/uL Anion Gap 12.80 H (4.00-12.00) mmol/L Glucose 132 H (70-110) mg/dL POC Glucose (mg/dL) 144 H 183 H (70-110) mg/dL Microbiology - Last 24 Hours (Table) 08/17/24 02:15 Anaerobic Culture - Preliminary Thigh - Left 08/17/24 02:15 Gram Stain - Final Thigh - Left Wound Culture - Final Proteus vulgaris group 08/17/24 04:45 Gram Stain - Final Sputum Sputum Culture - Final Methicillin resist S. aureus 08/16/24 14:26 Blood Culture - Preliminary Blood
[2024-08-19 17:26] LABS: Glucose,Whole Blood 139 mg/dL (70-110)
[2024-08-19 20:31] LABS: Glucose,Whole Blood 159 mg/dL (70-110)
[2024-08-19] MEDS: oxyCODONE ER 10 MG TAB.ER.12H PO SCH (21:15)
[2024-08-19] MEDS: SULFAMETHOX-TMP 800-160MG 1 EACH TAB PO SCH (21:16)
[2024-08-20 07:19] LABS: Glucose,Whole Blood 148 mg/dL (70-110)
--- NOTE | 2024-08-20 09:19 | P.PN ---
Subjective Progress Note Date: 08/20/24 the patient's left thigh skin lesion appears stable. There is no drainable abscess. On exam vital signs appear stable. Abdomen soft. There is no sign of infection of his left thigh.. Patient be followed as an outpatient for excision of the diseased area of skin. Objective - Vital Signs Vital signs: Vital Signs Temp 97.5 F L 08/20/24 07:19 Pulse 72 08/20/24 08:05 Resp 20 08/20/24 07:19 BP 139/74 08/20/24 07:19 Pulse Ox 93 L 08/20/24 07:19 FiO2 Intake & Output 08/19/24 08/20/24 08/20/24 18:59 06:59 18:59 Intake Total 2093 Balance 2093 Intake: Intake, IV Titration 600 Amount Cefepime 2 gm In Sodium 100 Chloride 0.9% 100 ml @ 25 mls/hr IVPB Q8HR [facility] Rx# :[id number] Vancomycin 2,250 mg In 500 Sodium Chloride 0.9% 500 ml 500 ml @ 167 mls/hr IVPB Q12H [facility] Rx#: [id number] Oral 1494 Other: # Voids 3 - Labs CBC & Chem 7: 08/19/24 05:25 08/19/24 05:25 Labs: Abnormal Lab Results - Last 24 Hours (Table) 08/19/24 08/19/24 08/19/24 Range/Units 05:25 05:25 12:15 WBC 12.18 H (4.50-10.00) X 10*3/uL RBC 4.39 L (4.40-5.60) X 10*6/uL RDW 14.7 H (11.5-14.5) % Plt Count 541 H (140-440) X 10*3/uL Anion Gap 12.80 H (4.00-12.00) mmol/L Glucose 132 H (70-110) mg/dL POC Glucose (mg/dL) 183 H (70-110) mg/dL 08/19/24 08/19/24 08/20/24 Range/Units 17:24 20:29 07:17 WBC (4.50-10.00) X 10*3/uL RBC (4.40-5.60) X 10*6/uL RDW (11.5-14.5) % Plt Count (140-440) X 10*3/uL Anion Gap (4.00-12.00) mmol/L Glucose (70-110) mg/dL POC Glucose (mg/dL) 139 H 159 H 148 H (70-110) mg/dL Microbiology - Last 24 Hours (Table) 08/16/24 14:26 Blood Culture - Preliminary Blood 08/17/24 02:15 Anaerobic Culture - Preliminary Thigh - Left 08/17/24 02:15 Gram Stain - Final Thigh - Left Wound Culture - Final Proteus vulgaris group 08/17/24 04:45 Gram Stain - Final Sputum Sputum Culture - Final Methicillin resist S. aureus
[2024-08-20 09:27] LABS: HCT 41.4 % (39.6-50.0); HGB 13.7 g/dL (13.0-17.0); MCH 31.1 pg (27.0-32.0); MCHC 33.1 g/dL (32.0-37.0); MCV 94.1 FL (80.0-97.0); Mean Platelet Volume 9.6 FL (9.5-12.2); NRBC Per 100 WBC 0 X 10*3/uL (0.00-0.01); Platelet Count 532 X 10*3/uL (140-440); RDW 14.4 % (11.5-14.5); WBC 10.81 X 10*3/uL (4.50-10.00)
[2024-08-20] MEDS: methylPREDNISolone SOD SUCCI 125 MG/2 ML VIAL IV STA (10:21)
[2024-08-20 10:46] LABS: BUN/Creat Ratio 17.92 Ratio (12.00-20.00); Blood Urea Nitrogen 21.5 mg/dL (9.0-27.0); Calcium 9.2 mg/dL (8.7-10.3); Carbon Dioxide 24.3 mmol/L (21.6-31.8); Chloride 100 mmol/L (96-109); Glucose 137 mg/dL (70-110); Potassium 4.7 mmol/L (3.5-5.5); Sodium 138 mmol/L (135-145)
[2024-08-20 12:12] LABS: Glucose,Whole Blood 197 mg/dL (70-110)
--- NOTE | 2024-08-20 12:58 | P.PN ---
Subjective Progress Note Date: 08/20/24 Patient is a 54-year-old male with past medical history significant for left- sided empyema status post thoracotomy and lung decortication, atrial fibrillation, heart failure, diabetes mellitus, hyperlipidemia, hypertension, left thigh abscess, multiple orthopedic surgeries, COPD, and heavy previous tobacco use. Back in 2017, patient had a complicated pneumonia developing a parapneumonic effusion/empyema, and did undergo left thoracotomy with complete decortication of the left lung and cryoablation of intercostal nerves 5 through 8. More recently patient was admitted back in July, with heart failure and A-fib RVR. On August 12, he did undergo FRANSISCA with cardioversion and successful conversion to normal sinus rhythm. Patient was ultimately discharged home on August 13. He returns to the emergency department yesterday afternoon complaining of shortness of breath. He states that the shortness of breath has been ongoing actually for a couple months. Worse over the last day or so. He has had associated cough with copious green sputum production. He states that his back pain on the left with coughing and deep breathing. Denies any measured fevers, does report occasional chills. No anterior chest pain or hemoptysis. Chest x-ray showed a suspicious masslike opacity projecting over the spine in the lateral view. New from prior recent chest x-ray done 08/04/24. The concern is for pneumonia. Chest CTA was performed down in the ER, showing a large masslike consolidation in the posterior left lung base. Measuring 9 x 7 cm. There was an adjacent pleural-based mass measuring 2.1 cm. Does admit 20 lb weight loss within last month. Denies personal history of malignancy. CBC: WBC count 13.9, hemoglobin 14.8, hematocrit 46.2, platelets 538. Sodium 136, potassium 4.8, chloride 104, serum bicarb 24, BUN 13, creatinine 0.75, glucose 186. Lactic 2. LFTs unremarkable. Troponin less than 0.012. NT proBNP 193. I am evaluating this patient on the general medical floor. He is sitting up in bed on room air. SpO2 96% . No measured fevers. Nontoxic appearance. There is large amount of green purulent sputum in bedside collection basin. He does have a left thigh wound and states that he previously had I&D of an abscess in May of the year. Over the last couple weeks, the area has started to become hard and painful again and had purulent drainage. The patient is seen today August 18, 2024 in follow-up on the regular medical floor. He is currently resting comfortably in bed. Awake and alert in no acute distress. He is maintaining good O2 saturations in the mid 90s on room air. He is afebrile. Hemodynamically stable. Sputum culture showing presumptive Staph aureus. Left thigh wound cultures showing Proteus vulgaris group. Blood culture pending. White count 13.6. Hemoglobin 13.5. Platelets 537. Sodium 139. Potassium 5.0. Bicarb 27. BUN 17. Creatinine 1.2. Glucose 133. He remains on bronchodilators. Antibiotics in the form of Zosyn. Remains on oral diuretics. Anticoagulated with Eliquis. The patient is seen today August 19, 2024 in follow-up on the regular medical floor. He is currently sitting up in bed. Awake and alert in no acute distress. Denies any worsening shortness of breath, cough or congestion. He states he is feeling better today compared to yesterday. Continues to maintain good O2 saturations in the 90s on room air. He is afebrile. Hemodynamically stable. Wound culture positive for Proteus vulgaris. Sputum culture positive for MRSA. White count 12.1. Hemoglobin 13.8. Platelets 541. Sodium 139. Potassium 5.0. Bicarb 25. BUN 18. Creatinine 1.0. Glucose 132. He remains on bronchodilators. Remains on cefepime and vancomycin. The patient is seen today August 20, 2024 in follow-up on the regular medical floor. He is currently resting comfortably in bed. Awake and alert in no acute distress. Continues to maintain good O2 saturations in the 90s on room air. He is continued on Symbicort, DuoNeb and elations. Antibiotics in the form of vancomycin and Bactrim. He remains on oral diuretics. Anticoagulated with Eliquis. Continued on Levemir and NovoLog sliding scale. CT scan of the left lower extremity revealed a small focal area of increased density in the subcutaneous soft tissues extending to the dermis in the lateral left thigh consistent with a small focal area of inflammation or possibly ulcer. No underlying abscess or discrete fluid collection noted. Wound culture was positive for Proteus vulgaris group. Sputum cultures positive for MRSA. White count 10.8. Hemoglobin 13.7. Platelets 532. Sodium 138. Potassium 4.7. Bicarb 24. BUN 22. Creatinine 1.2. Glucose 137. Objective - Vital Signs Vital signs: Vital Signs Temp 97.5 F L 08/20/24 07:19 Pulse 72 08/20/24 12:19 Resp 20 08/20/24 07:19 BP 139/74 08/20/24 07:19 Pulse Ox 93 L 08/20/24 07:19 FiO2 Intake & Output 08/19/24 08/20/24 08/20/24 18:59 06:59 18:59 Intake Total 2093 480 Balance 2093 480 Intake: Intake, IV Titration 600 Amount Cefepime 2 gm In Sodium 100 Chloride 0.9% 100 ml @ 25 mls/hr IVPB Q8HR [facility] Rx# :[id number] Vancomycin 2,250 mg In 500 Sodium Chloride 0.9% 500 ml 500 ml @ 167 mls/hr IVPB Q12H [facility] Rx#: [id number] Oral 1494 480 Other: Voiding Method Toilet # Voids 3 - Exam GENERAL EXAM: Alert, 54-year-old obese male, resting in bed, on room air, in no apparent distress. HEAD: Normocephalic and atraumatic EYES: Normal reaction of pupils, equal size. NOSE: Clear with pink turbinates. THROAT: No erythema or exudates. NECK: No masses, no JVD. CHEST: No chest wall deformity. Remote appearing healed thoracotomy incision left posterior back LUNGS: Equal air entry with focal dullness of the posterior left lower lobe with inspiratory crackles. No wheezes or rhonchi. CVS: S1 and S2 normal with no audible murmur, regular rhythm. No extra heart sounds ABDOMEN: No hepatosplenomegaly, active bowel sounds, no guarding or rigidity. SPINE: No scoliosis or deformity SKIN: No rashes. Left thigh wound with surrounding induration and erythema CENTRAL NERVOUS SYSTEM: No focal deficits, tone is normal in all 4 extremities. EXTREMITIES: There is bilateral lower extremity mild nonpitting edema. No clubbing, or cyanosis. Peripheral pulses are intact. - Labs CBC & Chem 7: 08/20/24 03:04 08/20/24 03:04 Labs: Abnormal Lab Results - Last 24 Hours (Table) 12/07/24 12/07/24 12/08/24 Range/Units 17:24 20:29 03:04 WBC 10.81 H (4.50-10.00) X 10*3/uL Plt Count 532 H (140-440) X 10*3/uL Anion Gap (4.00-12.00) mmol/L Glucose (70-110) mg/dL POC Glucose (mg/dL) 139 H 159 H (70-110) mg/dL 08/20/24 08/20/24 08/20/24 Range/Units 03:04 07:17 12:10 WBC (4.50-10.00) X 10*3/uL Plt Count (140-440) X 10*3/uL Anion Gap 13.70 H (4.00-12.00) mmol/L Glucose 137 H (70-110) mg/dL POC Glucose (mg/dL) 148 H 197 H (70-110) mg/dL Microbiology - Last 24 Hours (Table) 08/16/24 14:26 Blood Culture - Preliminary Blood 08/17/24 02:15 Anaerobic Culture - Preliminary Thigh - Left 08/17/24 02:15 Gram Stain - Final Thigh - Left Wound Culture - Final Proteus vulgaris group 08/17/24 04:45 Gram Stain - Final Sputum Sputum Culture - Final Methicillin resist S. aureus Assessment and Plan Assessment: Suspect left lower lobe pneumonia, HCAP, chest x-ray done on admission showing a new airspace retrocardiac opacity when compared to recent chest x-ray done on 08/04/2024. Better visualized on lateral view. A follow-up chest CT angio was done in the ER which demonstrated a large masslike consolidation measuring 9 x 7 cm within the posterior left lung base with adjacent pleural base nodular opacity measuring 2.1 cm. Sputum culture revealing MRSA Acute dyspnea, secondary to above, stable and on room air Left thigh abscess status post I&D, patient is reporting increased pain, i nduration, and drainage. Cultures revealing Proteus vulgaris group Acute leukocytosis History of complicated left lung pneumonia with development of empyema, status post left thoracotomy and complete lung decortication in 2018 Chronic obstructive pulmonary disease, inactive Former tobacco dependence, with over [id number] history Hypertension Hyperlipidemia Diabetes mellitus type 2 History of heart failure with mildly reduced ejection fraction of 45 to 50%, moderate mitral and tricuspid regurgitation, patent PFO History of atrial fibrillation status post FRANSISCA/cardioversion, currently normal sinus rhythm Morbid obesity, with a BMI of 42.6 kg/m Plan: The patient was seen and evaluated Labs and medications reviewed CT scan of the left lower extremity reviewed Remains on vancomycin and Bactrim Stable and on room air Will continue to follow I have personally seen and examined the patient, performed the documentation and the assessment and plan as written. Number of minutes spent on the visit: 10 Dictation was produced using [employer] dictation software. Please excuse any grammatical, word or spelling errors.
--- NOTE | 2024-08-20 13:49 | P.PN ---
Subjective Progress Note Date: 08/20/24 54-year-old male came in with complaints of shortness of breath and chest pain which is pleuritic in nature patient had a CT of the chest which showed infiltrate which has masslike contour patient was here in month of July with cough and green sputum production at the time patient was treated for pneumonia patient has slightly elevated white count BNP within normal limits no lactic acidosis. Patient also has wound on the left thigh which is mostly healed and likely scar although it was draining because of which ultrasound was obtained which showed fluid collection but clinically does not appear to be abscess although cultures were obtained from this location. August 18, 2024 Patient seen and examined at bedside. He states today that he does not have any chest pain or shortness of breath. Sputum cultures with mixed gram-positive cocci and gram-negative bacilli with moderate PMNs. Cultures of right thigh resulted with Proteus vulgaris. ID and surgery consulted. He continues on Zosyn. Labs today WBC 13.63, hemoglobin 13.5, sodium 139, potassium 5.0, bicarb 26.9, gap 12.1, glucose 133. Procalcitonin 0.10. August 19, 2024 Patient seen and examined at bedside. He is denying chest pain and shortness of breath, however does endorse new maculopapular rash throughout the body that he states began yesterday, likely from beta-lactam. Sputum cultures resulted in MRSA. ID and surgery following, notes reviewed. Pulmonology following notes reviewed, no biopsy of the lung will be performed by IR at this time as feeling mass is mostly inflammatory or infectious rather than malignant. He we will continue with vancomycin, and add Bactrim, discontinued cefepime. Labs today WBC 12.1, hemoglobin 13.8, sodium 139, potassium 5.0, bicarb 25.2, gap 12.80, glucose 183. 08/20/2024 Patient is evaluated today in follow-up resting in bed. He reports improved shortness of breath. The rash she states is slightly improved however he is requiring Benadryl as he is feeling quite itchy. He was changed to IV vancomycin and oral Bactrim and taken off of the cefepime. No plans for inte rvention per interventional radiology he will continue antibiotics for now. White blood cell count 10.81, BUN of 21.5 creatinine of 1.2. Review of Systems Constitutional: Denied any fatigue denied any fever. Cardio vascular: denied any chest pain, palpitations Gastrointestinal: denied any nausea, vomiting, diarrhea Pulmonary: Denied any shortness of breath cough Neurologic denied any new focal deficits All inpatient medications were reviewed and appropriate changes in these medications as dictated in the interval history and assessment and plan. PHYSICAL EXAMINATION: GENERAL: The patient is alert and oriented x3, not in any acute distress. Well developed, well nourished. Obese HEENT: Pupils are round and equally reacting to light. EOMI. No scleral icterus. No conjunctival pallor. Normocephalic, atraumatic. No pharyngeal erythema. No thyromegaly. CARDIOVASCULAR: S1 and S2 present. No murmurs, rubs, or gallops. PULMONARY: Chest is clear to auscultation, no wheezing or crackles. ABDOMEN: Soft, nontender, nondistended, normoactive bowel sounds. No palpable organomegaly. MUSCULOSKELETAL: No joint swelling or deformity. EXTREMITIES: No cyanosis, clubbing, or pedal edema. NEUROLOGICAL: Gross neurological examination did not reveal any focal deficits. SKIN: Wound on the left lateral side of the thigh as mentioned above, maculopapular rash throughout body Assessment and plan -left lower lobe pneumonia although malignancy cannot be excluded patient was started on antibiotics, continue Bactrim and vancomycin discontinue cefepime, pulmonology, ID following MRSA infection treated as above -Shortness of breath secondary to pneumonia -COPD without any significant acute exacerbation -Serous drainage from the left thigh local wound care, ID and surgery following Drug reaction likely due to beta-lactam, Benadryl 25 mg as needed -Type 2 diabetes mellitus -Hypertension -Hyperlipidemia -Congestive heart failure chronic systolic function EF of around 40 to 50% without any acute exacerbation patient was resumed on home regimen patient is euvolemic at this time-atrial fibrillation Had a history of FRANSISCA cardioversion presently sinus rhythm on anticoagulation with Eliquis which was continued -Obesity DVT prophylaxis: On Eliquis The impression and plan of care has been dictated by Cuca Brock Nurse Practitioner as directed. Dr. Hazel MD I have performed a history and physical examination and medical decision making of this patient, discussed the same with the dictator, and agree with the dictators assessment and plan as written, documented as a scribe. Based on total visit time, I have performed more than 50% of this visit. Objective - Vital Signs Vital signs: Vital Signs Temp 97.5 F L 08/20/24 07:19 Pulse 72 08/20/24 12:19 Resp 20 08/20/24 07:19 BP 139/74 08/20/24 07:19 Pulse Ox 93 L 08/20/24 07:19 FiO2 Intake & Output 08/19/24 08/20/24 08/20/24 18:59 06:59 18:59 Intake Total 2094 480 Balance 2094 480 Intake: Intake, IV Titration 600 Amount Cefepime 2 gm In Sodium 100 Chloride 0.9% 100 ml @ 25 mls/hr IVPB Q8HR [facility] Rx# :[id number] Vancomycin 2,250 mg In 500 Sodium Chloride 0.9% 500 ml 500 ml @ 167 mls/hr IVPB Q12H [facility] Rx#: [id number] Oral 1494 480 Other: Voiding Method Toilet # Voids 3 - Labs CBC & Chem 7: 08/20/24 03:04 08/20/24 03:04 Labs: Abnormal Lab Results - Last 24 Hours (Table) 08/19/24 08/19/24 08/20/24 Range/Units 17:24 20:29 03:04 WBC 10.81 H (4.50-10.00) X 10*3/uL Plt Count 532 H (140-440) X 10*3/uL Anion Gap (4.00-12.00) mmol/L Glucose (70-110) mg/dL POC Glucose (mg/dL) 139 H 159 H (70-110) mg/dL 08/20/24 08/20/24 08/20/24 Range/Units 03:04 07:17 12:10 WBC (4.50-10.00) X 10*3/uL Plt Count (140-440) X 10*3/uL Anion Gap 13.70 H (4.00-12.00) mmol/L Glucose 137 H (70-110) mg/dL POC Glucose (mg/dL) 148 H 197 H (70-110) mg/dL Microbiology - Last 24 Hours (Table) 08/16/24 14:26 Blood Culture - Preliminary Blood 08/17/24 02:15 Anaerobic Culture - Preliminary Thigh - Left 08/17/24 02:15 Gram Stain - Final Thigh - Left Wound Culture - Final Proteus vulgaris group 08/17/24 04:45 Gram Stain - Final Sputum Sputum Culture - Final Methicillin resist S. aureus Assessment and Plan Time with Patient: Less than 30
[2024-08-20] MEDS: polyethylene glycoL 3350 17 GM POWD.PACK PO SCH (14:28)
[2024-08-20 17:15] LABS: Glucose,Whole Blood 252 mg/dL (70-110)
[2024-08-20 20:10] LABS: Glucose,Whole Blood 296 mg/dL (70-110)
[2024-08-20] MEDS: VANCOMYCIN TROUGH DUE 1 EACH MISC MISCELLANE ONE (22:15)
[2024-08-21 07:11] LABS: Glucose,Whole Blood 309 mg/dL (70-110)
--- NOTE | 2024-08-21 08:19 | XR ---
EXAMINATION TYPE: XR chest 2V DATE OF EXAM: 08/21/2024 7:00 AM COMPARISON: Chest radiographs from 08/16/2024 CLINICAL INDICATION: Male, 54 years old with history of Pneumonia; [facility] TECHNIQUE: XR chest 2V Frontal and lateral views of the chest. FINDINGS: Lungs/Pleura: Azygous fissure noted. Consolidation in the left lung base appreciated on CT. There is no evidence of pleural effusion, focal consolidation, or pneumothorax. Pulmonary vascularity: Unremarkable. Heart/mediastinum: Cardiomediastinal silhouette is unremarkable. Musculoskeletal: No acute osseous pathology. IMPRESSION: Left lung base consolidations are appreciated on CT 1. Left lung base consolidations are appreciated on CT and felt to represent airspace consolidation a nd less likely mass given vessels extending throughout on CT imaging. 2. COPD changes. [facility], , 08/21/2024 8:16 AM
[2024-08-21 08:52] LABS: BUN/Creat Ratio 22.85 Ratio (12.00-20.00); Blood Urea Nitrogen 29.7 mg/dL (9.0-27.0); Calcium 9.7 mg/dL (8.7-10.3); Carbon Dioxide 23.6 mmol/L (21.6-31.8); Chloride 96 mmol/L (96-109); Glucose 300 mg/dL (70-110); Potassium 5.8 mmol/L (3.5-5.5); Sodium 133 mmol/L (135-145)
[2024-08-21 08:59] LABS: HGB 13.5 g/dL (13.0-17.0); MCH 31.4 pg (27.0-32.0); MCHC 32.9 g/dL (32.0-37.0); MCV 95.3 FL (80.0-97.0); Mean Platelet Volume 10.2 FL (9.5-12.2); NRBC Per 100 WBC 0 X 10*3/uL (0.00-0.01); Platelet Count 565 X 10*3/uL (140-440); RDW 14.1 % (11.5-14.5); WBC 16.91 X 10*3/uL (4.50-10.00)
--- NOTE | 2024-08-21 09:06 | P.PN ---
Subjective Progress Note Date: 08/20/24 Principal diagnosis: Reason for follow-up is MRSA pneumonia left thigh wound cellulitis Patient is a 54-year-old male with a past medical history significant for diabetes mellitus hypertension hyperlipidemia fibromyalgia heart failure atrial fibrillation patient apparently did have a seroma to the left thigh that was drained by Dr. Montano on May 24, 2024 culture at that time did grow Enterococcus faecium, now presented to hospital mostly with increasing shortness of breath did have a CT of the chest with the left lung mass/pneumonia sputum is growing MRSA did have a CT of the left thigh did not mention any drainable abscess culture positive for Proteus. On today's evaluation that is 08/20/2024, Patient is afebrile patient is currently on room air and denies having any shortness of breath, the patient denies any chest pain and cough is decreased in intensity the patient denies any nausea vomiting did not have any abdominal pain and no diarrhea, denies pain to the left thigh wound area rash is slightly decreased in intensity. Patient white count is down to 10.81, creat is 1.2 Objective - Vital Signs Vital signs: Vital Signs Temp 97.5 F L 08/20/24 07:19 Pulse 72 08/20/24 08:05 Resp 20 08/20/24 07:19 BP 139/74 08/20/24 07:19 Pulse Ox 93 L 08/20/24 07:19 FiO2 Intake & Output 08/19/24 08/20/24 08/20/24 18:59 06:59 18:59 Intake Total 2094 480 Balance 2094 480 Intake: Intake, IV Titration 600 Amount Cefepime 2 gm In Sodium 100 Chloride 0.9% 100 ml @ 25 mls/hr IVPB Q8HR [facility] Rx# :[id number] Vancomycin 2,250 mg In 500 Sodium Chloride 0.9% 500 ml 500 ml @ 167 mls/hr IVPB Q12H [facility] Rx#: [id number] Oral 1494 480 Other: # Voids 3 - Exam GENERAL DESCRIPTION: Middle-age male lying in bed in no distress RESPIRATORY SYSTEM: Unlabored breathing , decreased breath sounds at bases HEART: S1 S2 regular rate and rhythm , ABDOMEN: Soft , no tenderness SKIN: Did have diffuse maculopapular rash no vesicle - Labs CBC & Chem 7: 08/21/24 05:28 08/21/24 05:28 Labs: Abnormal Lab Results - Last 24 Hours (Table) 08/19/24 08/19/24 08/19/24 Range/Units 05:25 05:25 12:15 WBC 12.18 H (4.50-10.00) X 10*3/uL RBC 4.39 L (4.40-5.60) X 10*6/uL RDW 14.7 H (11.5-14.5) % Plt Count 541 H (140-440) X 10*3/uL Anion Gap 12.80 H (4.00-12.00) mmol/L Glucose 132 H (70-110) mg/dL POC Glucose (mg/dL) 183 H (70-110) mg/dL 08/19/24 08/19/24 08/20/24 Range/Units 17:24 20:29 03:04 WBC 10.81 H (4.50-10.00) X 10*3/uL RBC (4.40-5.60) X 10*6/uL RDW (11.5-14.5) % Plt Count 532 H (140-440) X 10*3/uL Anion Gap (4.00-12.00) mmol/L Glucose (70-110) mg/dL POC Glucose (mg/dL) 139 H 159 H (70-110) mg/dL 08/20/24 Range/Units 07:17 WBC (4.50-10.00) X 10*3/uL RBC (4.40-5.60) X 10*6/uL RDW (11.5-14.5) % Plt Count (140-440) X 10*3/uL Anion Gap (4.00-12.00) mmol/L Glucose (70-110) mg/dL POC Glucose (mg/dL) 148 H (70-110) mg/dL Microbiology - Last 24 Hours (Table) 08/16/24 14:26 Blood Culture - Preliminary Blood 08/17/24 02:15 Anaerobic Culture - Preliminary Thigh - Left 08/17/24 02:15 Gram Stain - Final Thigh - Left Wound Culture - Final Proteus vulgaris group 08/17/24 04:45 Gram Stain - Final Sputum Sputum Culture - Final Methicillin resist S. aureus Assessment and Plan (1) Abscess of left thigh Current Visit: Yes Status: Acute Code(s): L02.416 - CUTANEOUS ABSCESS OF LEFT LOWER LIMB SNOMED Code(s): 65145545003758902 (2) Lung mass Current Visit: Yes Status: Acute Code(s): R91.8 - OTHER NONSPECIFIC ABNORMAL FINDING OF LUNG FIELD SNOMED Code(s): 565451455 (3) Pneumonia Current Visit: No Status: Acute Code(s): J18.9 - PNEUMONIA, UNSPECIFIED ORGANISM SNOMED Code(s): 883379118 (4) Drug rash Current Visit: Yes Status: Acute Code(s): L27.0 - GEN SKIN ERUPTION DUE TO DRUGS AND MEDS TAKEN INTERNALLY SNOMED Code(s): 31191341 Plan: 1patient presented to hospital with increasing shortness of breath and this patient who did have CT imaging of the chest concerning for a lung mass underlying neoplasm not excluded pneumonia needs to be rule out with a sputum growing Staph aureus which has been finalized with MRSA likely competent of pneumonia 2left lateral thigh abscess culture coming back with Proteus that is sensitive to cefepime patient on as well as to Cipro and Bactrim DS patient did have CT of the left thigh did not mention any abscess that need to be drained 3patient has developed a maculopapular rash more likely related to beta-lactam than the vancomycin, cefepime has been discontinued still complaining of some itching and rash will give a dose of Solu-Medrol x 1 4patient will be treated with Bactrim DS to cover for the left thigh wound cellulitis and will continue with the vancomycin for his MRSA pneumonia. Dictation was produced using [employer] software. please excuse any grammatical, word or spelling errors. Time with Patient: Less than 30
--- NOTE | 2024-08-21 11:22 | P.PN ---
Subjective Progress Note Date: 08/21/24 SURGICAL PROGRESS NOTE CHIEF COMPLAINT: Shortness of breath HISTORY OF PRESENT ILLNESS: Surgical service following in regards to left thigh lateral skin lesion. There is no drainable abscess noted on CAT scan. PHYSICAL EXAM: VITAL SIGNS: Reviewed. GENERAL: Well-developed in no acute distress. Abdomen: Soft Extremities: Left thigh lateral skin lesion. Nontender with palpation. No drainage noted at this time. No erythema. ASSESSMENT: 1. Left thigh skin lesion appears stable PLAN: -Patient be followed as outpatient for excision of the diseased area of skin Physician Offal Baler note has been reviewed by physician. Signing provider agrees with the documented findings, assessment, and plan of care. Objective - Vital Signs Vital signs: Vital Signs Temp 97.1 F L 08/21/24 07:08 Pulse 88 08/21/24 09:30 Resp 20 08/21/24 07:08 BP 99/56 08/21/24 07:08 Pulse Ox 90 L 08/21/24 07:08 FiO2 Intake & Output 08/20/24 08/21/24 08/21/24 18:59 06:59 18:59 Intake Total 3372 1120 Balance 3372 1120 Intake: Oral 3372 1120 Other: Voiding Method Toilet Toilet # Voids 2 0 - Labs CBC & Chem 7: 08/21/24 05:28 08/21/24 05:28 Labs: Abnormal Lab Results - Last 24 Hours (Table) 08/20/24 08/20/24 08/20/24 Range/Units 12:10 17:14 20:08 WBC (4.50-10.00) X 10*3/uL RBC (4.40-5.60) X 10*6/uL Plt Count (140-440) X 10*3/uL Sodium (135-145) mmol/L Potassium (3.5-5.5) mmol/L Anion Gap (4.00-12.00) mmol/L BUN (9.0-27.0) mg/dL BUN/Creatinine Ratio (12.00-20.00) Ratio Glucose (70-110) mg/dL POC Glucose (mg/dL) 197 H 252 H 296 H (70-110) mg/dL 08/21/24 08/21/24 08/21/24 Range/Units 05:28 05:28 07:10 WBC 16.91 H (4.50-10.00) X 10*3/uL RBC 4.30 L (4.40-5.60) X 10*6/uL Plt Count 565 H (140-440) X 10*3/uL Sodium 133 L (135-145) mmol/L Potassium 5.8 H (3.5-5.5) mmol/L Anion Gap 13.40 H (4.00-12.00) mmol/L BUN 29.7 H (9.0-27.0) mg/dL BUN/Creatinine Ratio 22.85 H (12.00-20.00) Ratio Glucose 300 H (70-110) mg/dL POC Glucose (mg/dL) 309 H (70-110) mg/dL
[2024-08-21 12:09] LABS: Glucose,Whole Blood 320 mg/dL (70-110)
[2024-08-21] MEDS: SODIUM ZIRCONIUM CYCLOSILICATE 10 GM PACKET PO ONE (12:51)
[2024-08-21] MEDS: SODIUM CHLORIDE 0.9% 1,000 ML IV SCH (12:53)
--- NOTE | 2024-08-21 13:22 | P.PN ---
Subjective Progress Note Date: 08/21/24 54-year-old male came in with complaints of shortness of breath and chest pain which is pleuritic in nature patient had a CT of the chest which showed infiltrate which has masslike contour patient was here in month of July with cough and green sputum production at the time patient was treated for pneumonia patient has slightly elevated white count BNP within normal limits no lactic acidosis. Patient also has wound on the left thigh which is mostly healed and likely scar although it was draining because of which ultrasound was obtained which showed fluid collection but clinically does not appear to be abscess although cultures were obtained from this location. August 18, 2024 Patient seen and examined at bedside. He states today that he does not have any chest pain or shortness of breath. Sputum cultures with mixed gram-positive cocci and gram-negative bacilli with moderate PMNs. Cultures of right thigh resulted with Proteus vulgaris. ID and surgery consulted. He continues on Zosyn. Labs today WBC 13.63, hemoglobin 13.5, sodium 139, potassium 5.0, bicarb 26.9, gap 12.1, glucose 133. Procalcitonin 0.10. August 19, 2024 Patient seen and examined at bedside. He is denying chest pain and shortness of breath, however does endorse new maculopapular rash throughout the body that he states began yesterday, likely from beta-lactam. Sputum cultures resulted in MRSA. ID and surgery following, notes reviewed. Pulmonology following notes reviewed, no biopsy of the lung will be performed by IR at this time as feeling mass is mostly inflammatory or infectious rather than malignant. He we will continue with vancomycin, and add Bactrim, discontinued cefepime. Labs today WBC 12.1, hemoglobin 13.8, sodium 139, potassium 5.0, bicarb 25.2, gap 12.80, glucose 183. 08/20/2024 Patient is evaluated today in follow-up resting in bed. He reports improved shortness of breath. The rash she states is slightly improved however he is requiring Benadryl as he is feeling quite itchy. He was changed to IV vancomycin and oral Bactrim and taken off of the cefepime. No plans for inte rvention per interventional radiology he will continue antibiotics for now. White blood cell count 10.81, BUN of 21.5 creatinine of 1.2. 08/21/2024 Patient seen and examined at bedside. He reports continued improvement with breathing. He continues on IV vancomycin and oral Bactrim. Will discontinue Lasix and begin IV NS due to hypotension. WBC 16.91, hemoglobin 13.5, platelets 565, sodium 133, potassium 5.8, bicarb 23.6, anion gap 13.4, BUN 29.7, creatinine 1.3, glucose ranging 137-320. Chest x-ray left lung base consolidations representing airspace consolidation and less likely mass. Review of Systems Constitutional: Denied any fatigue denied any fever. Cardio vascular: denied any chest pain, palpitations Gastrointestinal: denied any nausea, vomiting, diarrhea Pulmonary: Denied any shortness of breath cough Neurologic denied any new focal deficits All inpatient medications were reviewed and appropriate changes in these medications as dictated in the interval history and assessment and plan. PHYSICAL EXAMINATION: GENERAL: The patient is alert and oriented x3, not in any acute distress. Well developed, well nourished. Obese HEENT: Pupils are round and equally reacting to light. EOMI. No scleral icterus. No conjunctival pallor. Normocephalic, atraumatic. No pharyngeal erythema. No thyromegaly. CARDIOVASCULAR: S1 and S2 present. No murmurs, rubs, or gallops. PULMONARY: Chest is clear to auscultation, no wheezing or crackles. ABDOMEN: Soft, nontender, nondistended, normoactive bowel sounds. No palpable organomegaly. MUSCULOSKELETAL: No joint swelling or deformity. EXTREMITIES: No cyanosis, clubbing, or pedal edema. NEUROLOGICAL: Gross neurological examination did not reveal any focal deficits. SKIN: Wound on the left lateral side of the thigh as mentioned above, maculopapular rash throughout body Assessment and plan -left lower lobe pneumonia although malignancy cannot be excluded patient was started on antibiotics, continue Bactrim and vancomycin discontinue cefepime, pulmonology, ID following MRSA infection treated as above -Shortness of breath secondary to pneumonia -COPD without any significant acute exacerbation -Serous drainage from the left thigh local wound care, ID and surgery following Drug reaction likely due to beta-lactam, Benadryl 25 mg as needed Hyperkalemia, given Lokelma Hyponatremia, discontinue Lasix begin IV NS -Type 2 diabetes mellitus -Hypertension -Hyperlipidemia -Congestive heart failure chronic systolic function EF of around 40 to 50% without any acute exacerbation patient was resumed on home regimen patient is euvolemic at this time-atrial fibrillation Had a history of FRANSISCA cardioversion presently sinus rhythm on anticoagulation with Eliquis which was continued -Obesity DVT prophylaxis: On Eliquis Dr. Hazel MD I have performed a history and physical examination and medical decision making of this patient, discussed the same with the dictator, and agree with the dictators assessment and plan as written, documented as a scribe. Based on total visit time, I have performed more than 50% of this visit. Objective - Vital Signs Vital signs: Vital Signs Temp 97.5 F L 08/21/24 12:04 Pulse 72 08/21/24 12:35 Resp 20 08/21/24 12:04 BP 112/63 08/21/24 12:04 Pulse Ox 93 L 08/21/24 12:04 FiO2 Intake & Output 08/20/24 08/21/24 08/21/24 18:59 06:59 18:59 Intake Total 3372 1120 Balance 3372 1120 Intake: Oral 3372 1120 Other: Voiding Method Toilet Toilet # Voids 2 0 - Labs CBC & Chem 7: 08/21/24 05:28 08/21/24 05:28 Labs: Abnormal Lab Results - Last 24 Hours (Table) 08/20/24 08/20/24 08/21/24 Range/Units 17:14 20:08 05:28 WBC 16.91 H (4.50-10.00) X 10*3/uL RBC 4.30 L (4.40-5.60) X 10*6/uL Plt Count 565 H (140-440) X 10*3/uL Sodium (135-145) mmol/L Potassium (3.5-5.5) mmol/L Anion Gap (4.00-12.00) mmol/L BUN (9.0-27.0) mg/dL BUN/Creatinine Ratio (12.00-20.00) Ratio Glucose (70-110) mg/dL POC Glucose (mg/dL) 252 H 296 H (70-110) mg/dL 08/21/24 08/21/24 08/21/24 Range/Units 05:28 07:10 12:07 WBC (4.50-10.00) X 10*3/uL RBC (4.40-5.60) X 10*6/uL Plt Count (140-440) X 10*3/uL Sodium 133 L (135-145) mmol/L Potassium 5.8 H (3.5-5.5) mmol/L Anion Gap 13.40 H (4.00-12.00) mmol/L BUN 29.7 H (9.0-27.0) mg/dL BUN/Creatinine Ratio 22.85 H (12.00-20.00) Ratio Glucose 300 H (70-110) mg/dL POC Glucose (mg/dL) 309 H 320 H (70-110) mg/dL
--- NOTE | 2024-08-21 14:51 | P.PN ---
Subjective Progress Note Date: 08/21/24 Patient is a 54-year-old male with past medical history significant for left- sided empyema status post thoracotomy and lung decortication, atrial fibrillation, heart failure, diabetes mellitus, hyperlipidemia, hypertension, left thigh abscess, multiple orthopedic surgeries, COPD, and heavy previous tobacco use. Back in 2017, patient had a complicated pneumonia developing a parapneumonic effusion/empyema, and did undergo left thoracotomy with complete decortication of the left lung and cryoablation of intercostal nerves 5 through 8. More recently patient was admitted back in July, with heart failure and A-fib RVR. On August 12, he did undergo FRANSISCA with cardioversion and successful conversion to normal sinus rhythm. Patient was ultimately discharged home on August 13. He returns to the emergency department yesterday afternoon complaining of shortness of breath. He states that the shortness of breath has been ongoing actually for a couple months. Worse over the last day or so. He has had associated cough with copious green sputum production. He states that his back pain on the left with coughing and deep breathing. Denies any measured fevers, does report occasional chills. No anterior chest pain or hemoptysis. Chest x-ray showed a suspicious masslike opacity projecting over the spine in the lateral view. New from prior recent chest x-ray done 08/04/24. The concern is for pneumonia. Chest CTA was performed down in the ER, showing a large masslike consolidation in the posterior left lung base. Measuring 9 x 7 cm. There was an adjacent pleural-based mass measuring 2.1 cm. Does admit 20 lb weight loss within last month. Denies personal history of malignancy. CBC: WBC count 13.9, hemoglobin 14.8, hematocrit 46.2, platelets 538. Sodium 136, potassium 4.8, chloride 104, serum bicarb 24, BUN 13, creatinine 0.75, glucose 186. Lactic 2. LFTs unremarkable. Troponin less than 0.012. NT proBNP 193. I am evaluating this patient on the general medical floor. He is sitting up in bed on room air. SpO2 96% . No measured fevers. Nontoxic appearance. There is large amount of green purulent sputum in bedside collection basin. He does have a left thigh wound and states that he previously had I&D of an abscess in May of the year. Over the last couple weeks, the area has started to become hard and painful again and had purulent drainage. The patient is seen today August 18, 2024 in follow-up on the regular medical floor. He is currently resting comfortably in bed. Awake and alert in no acute distress. He is maintaining good O2 saturations in the mid 90s on room air. He is afebrile. Hemodynamically stable. Sputum culture showing presumptive Staph aureus. Left thigh wound cultures showing Proteus vulgaris group. Blood culture pending. White count 13.6. Hemoglobin 13.5. Platelets 537. Sodium 139. Potassium 5.0. Bicarb 27. BUN 17. Creatinine 1.2. Glucose 133. He remains on bronchodilators. Antibiotics in the form of Zosyn. Remains on oral diuretics. Anticoagulated with Eliquis. The patient is seen today August 19, 2024 in follow-up on the regular medical floor. He is currently sitting up in bed. Awake and alert in no acute distress. Denies any worsening shortness of breath, cough or congestion. He states he is feeling better today compared to yesterday. Continues to maintain good O2 saturations in the 90s on room air. He is afebrile. Hemodynamically stable. Wound culture positive for Proteus vulgaris. Sputum culture positive for MRSA. White count 12.1. Hemoglobin 13.8. Platelets 541. Sodium 139. Potassium 5.0. Bicarb 25. BUN 18. Creatinine 1.0. Glucose 132. He remains on bronchodilators. Remains on cefepime and vancomycin. The patient is seen today August 20, 2024 in follow-up on the regular medical floor. He is currently resting comfortably in bed. Awake and alert in no acute distress. Continues to maintain good O2 saturations in the 90s on room air. He is continued on Symbicort, DuoNeb and elations. Antibiotics in the form of vancomycin and Bactrim. He remains on oral diuretics. Anticoagulated with Eliquis. Continued on Levemir and NovoLog sliding scale. CT scan of the left lower extremity revealed a small focal area of increased density in the subcutaneous soft tissues extending to the dermis in the lateral left thigh consistent with a small focal area of inflammation or possibly ulcer. No underlying abscess or discrete fluid collection noted. Wound culture was positive for Proteus vulgaris group. Sputum cultures positive for MRSA. White count 10.8. Hemoglobin 13.7. Platelets 532. Sodium 138. Potassium 4.7. Bicarb 24. BUN 22. Creatinine 1.2. Glucose 137. The patient is seen today August 21, 2024 in follow-up on the regular medical floor. He is awake and alert in no acute distress. Resting comfortably in bed. Maintaining O2 saturations in the 90s on room air. He has been afebrile. Hemodynamically stable. Chest x-ray shows left lung consolidation felt to represent airspace consolidation and less likely mass per radiology. Evidence of COPD changes. Culture positive for MRSA. Left thigh culture positive for Proteus vulgaris group. White count 16.9. Hemoglobin 13.5. Platelets 565. Sodium 133. Potassium 5.8. Bicarb 24. BUN 29. Creatinine 1.3. Glucose 300. Objective - Vital Signs Vital signs: Vital Signs Temp 97.5 F L 08/21/24 12:04 Pulse 72 08/21/24 12:35 Resp 20 08/21/24 12:04 BP 112/63 08/21/24 12:04 Pulse Ox 93 L 08/21/24 12:04 FiO2 Intake & Output 08/20/24 08/21/24 08/21/24 18:59 06:59 18:59 Intake Total 3372 1120 Balance 3372 1120 Intake: Oral 3372 1120 Other: Voiding Method Toilet Toilet # Voids 2 0 - Exam GENERAL EXAM: Alert, pleasant 54-year-old obese male, on room air, in no apparent distress. HEAD: Normocephalic and atraumatic EYES: Normal reaction of pupils, equal size. NOSE: Clear with pink turbinates. THROAT: No erythema or exudates. NECK: No masses, no JVD. CHEST: No chest wall deformity. Remote appearing healed thoracotomy incision left posterior back LUNGS: Equal air entry with focal dullness of the posterior left lower lobe with inspiratory crackles. No wheezes or rhonchi. CVS: S1 and S2 normal with no audible murmur, regular rhythm. No extra heart sounds ABDOMEN: No hepatosplenomegaly, active bowel sounds, no guarding or rigidity. SPINE: No scoliosis or deformity SKIN: No rashes. Left thigh wound with surrounding induration and erythema CENTRAL NERVOUS SYSTEM: No focal deficits, tone is normal in all 4 extremities. EXTREMITIES: There is bilateral lower extremity mild nonpitting edema. No club yesenia, or cyanosis. Peripheral pulses are intact. - Labs CBC & Chem 7: 08/21/24 05:28 08/21/24 05:28 Labs: Abnormal Lab Results - Last 24 Hours (Table) 08/20/24 08/20/24 08/21/24 Range/Units 17:14 20:08 05:28 WBC 16.91 H (4.50-10.00) X 10*3/uL RBC 4.30 L (4.40-5.60) X 10*6/uL Plt Count 565 H (140-440) X 10*3/uL Sodium (135-145) mmol/L Potassium (3.5-5.5) mmol/L Anion Gap (4.00-12.00) mmol/L BUN (9.0-27.0) mg/dL BUN/Creatinine Ratio (12.00-20.00) Ratio Glucose (70-110) mg/dL POC Glucose (mg/dL) 252 H 296 H (70-110) mg/dL 08/21/24 08/21/24 08/21/24 Range/Units 05:28 07:10 12:07 WBC (4.50-10.00) X 10*3/uL RBC (4.40-5.60) X 10*6/uL Plt Count (140-440) X 10*3/uL Sodium 133 L (135-145) mmol/L Potassium 5.8 H (3.5-5.5) mmol/L Anion Gap 13.40 H (4.00-12.00) mmol/L BUN 29.7 H (9.0-27.0) mg/dL BUN/Creatinine Ratio 22.85 H (12.00-20.00) Ratio Glucose 300 H (70-110) mg/dL POC Glucose (mg/dL) 309 H 320 H (70-110) mg/dL Assessment and Plan Assessment: Suspect left lower lobe pneumonia, HCAP, chest x-ray done on admission showing a new airspace retrocardiac opacity when compared to recent chest x-ray done on 08/04/2024. Better visualized on lateral view. A follow-up chest CT demonstrated a large masslike consolidation measuring 9 x 7 cm within the posterior left lung base with adjacent pleural base nodular opacity measuring 2.1 cm. Sputum culture revealing MRSA. Remains on vancomycin Acute dyspnea, secondary to above, stable and on room air Left thigh abscess status post I&D, patient is reporting increased pain, induration, and drainage. Cultures revealing Proteus vulgaris group Acute leukocytosis History of complicated left lung pneumonia with development of empyema, status post left thoracotomy and complete lung decortication in 2018 Chronic obstructive pulmonary disease, inactive Former tobacco dependence, with over [id number] history Hypertension Hyperlipidemia Diabetes mellitus type 2 History of heart failure with mildly reduced ejection fraction of 45 to 50%, moderate mitral and tricuspid regurgitation, patent PFO History of atrial fibrillation status post FRANSISCA/cardioversion, currently normal sinus rhythm Morbid obesity, with a BMI of 42.6 kg/m Plan: The patient was seen and evaluated Chest x-ray, labs and medications reviewed May consider bronchoscopy with BAL Remains on vancomycin Continued on DuoNebs and Symbicort Stable and on room air This patient was seen independently by the pulmonary nurse practitioner addressing pulmonary issues I have personally seen and examined the patient, performed the documentation and the assessment and plan as written. Number of minutes spent on the visit: 25 Dictation was produced using [facility] dictation software. Please excuse any grammatical, word or spelling errors.
[2024-08-21 17:00] LABS: Glucose,Whole Blood 348 mg/dL (70-110)
[2024-08-21] MEDS: INSULIN ASPART (NovoLOG) 100 UNIT/ML VIAL SQ SCH (17:09)
[2024-08-21 20:24] LABS: Glucose,Whole Blood 334 mg/dL (70-110)
[2024-08-21] MEDS: INSULIN DETEMIR (LEVEMIR) 100 UNIT/ML SYR SQ SCH (21:12)
[2024-08-21] MEDS: VANCOMYCIN 2,500 MG in SODIUM CHLORIDE 0.9% 500 ML 500 ML IVPB SCH (21:58)
[2024-08-22 07:31] LABS: Glucose,Whole Blood 196 mg/dL (70-110)
--- NOTE | 2024-08-22 07:51 | P.PN ---
Subjective Progress Note Date: 08/21/24 Principal diagnosis: Reason for follow-up is MRSA pneumonia left thigh wound cellulitis Patient is a 54-year-old male with a past medical history significant for diabetes mellitus hypertension hyperlipidemia fibromyalgia heart failure atrial fibrillation patient apparently did have a seroma to the left thigh that was drained by Dr. Montano on May 24, 2024 culture at that time did grow Enterococcus faecium, now presented to hospital mostly with increasing shortness of breath did have a CT of the chest with the left lung mass/pneumonia sputum is growing MRSA did have a CT of the left thigh did not mention any drainable abscess culture positive for Proteus. On today's evaluation that is 08/21/2024, patient has been afebrile, patient is breathing comfortably and is currently on room air, patient denies having any significant chest pain still have some cough but no sputum production no nausea vomiting no abdominal pain no diarrhea. Patient white count 16.91 creatinine is 1.3 Objective - Vital Signs Vital signs: Vital Signs Temp 97.5 F L 08/21/24 12:04 Pulse 72 08/21/24 12:35 Resp 20 08/21/24 12:04 BP 112/63 08/21/24 12:04 Pulse Ox 93 L 08/21/24 12:04 FiO2 Intake & Output 08/20/24 08/21/24 08/21/24 18:59 06:59 18:59 Intake Total 3372 1120 Balance 3372 1120 Intake: Oral 3372 1120 Other: Voiding Method Toilet Toilet # Voids 2 0 - Exam GENERAL DESCRIPTION: Middle-age male lying in bed in no distress RESPIRATORY SYSTEM: Unlabored breathing , decreased breath sounds at bases HEART: S1 S2 regular rate and rhythm , ABDOMEN: Soft , no tenderness SKIN: Did have diffuse maculopapular rash no vesicle - Labs CBC & Chem 7: 08/21/24 05:28 08/21/24 05:28 Labs: Abnormal Lab Results - Last 24 Hours (Table) 08/20/24 08/20/24 08/21/24 Range/Units 17:14 20:08 05:28 WBC 16.91 H (4.50-10.00) X 10*3/uL RBC 4.30 L (4.40-5.60) X 10*6/uL Plt Count 565 H (140-440) X 10*3/uL Sodium (135-145) mmol/L Potassium (3.5-5.5) mmol/L Anion Gap (4.00-12.00) mmol/L BUN (9.0-27.0) mg/dL BUN/Creatinine Ratio (12.00-20.00) Ratio Glucose (70-110) mg/dL POC Glucose (mg/dL) 252 H 296 H (70-110) mg/dL 08/21/24 08/21/24 08/21/24 Range/Units 05:28 07:10 12:07 WBC (4.50-10.00) X 10*3/uL RBC (4.40-5.60) X 10*6/uL Plt Count (140-440) X 10*3/uL Sodium 133 L (135-145) mmol/L Potassium 5.8 H (3.5-5.5) mmol/L Anion Gap 13.40 H (4.00-12.00) mmol/L BUN 29.7 H (9.0-27.0) mg/dL BUN/Creatinine Ratio 22.85 H (12.00-20.00) Ratio Glucose 300 H (70-110) mg/dL POC Glucose (mg/dL) 309 H 320 H (70-110) mg/dL Assessment and Plan (1) Abscess of left thigh Current Visit: Yes Status: Acute Code(s): L02.416 - CUTANEOUS ABSCESS OF LEFT LOWER LIMB SNOMED Code(s): 71847188274493309 (2) Lung mass Current Visit: Yes Status: Acute Code(s): R91.8 - OTHER NONSPECIFIC ABNORMAL FINDING OF LUNG FIELD SNOMED Code(s): 801863118 (3) Pneumonia Current Visit: No Status: Acute Code(s): J18.9 - PNEUMONIA, UNSPECIFIED ORGANISM SNOMED Code(s): 923361889 (4) Drug rash Current Visit: Yes Status: Acute Code(s): L27.0 - GEN SKIN ERUPTION DUE TO DRUGS AND MEDS TAKEN INTERNALLY SNOMED Code(s): 75415932 Plan: 1patient presented to hospital with increasing shortness of breath and this patient who did have CT imaging of the chest concerning for a lung mass underlyi ng neoplasm not excluded pneumonia needs to be rule out with a sputum growing Staph aureus which has been finalized with MRSA likely competent of pneumonia 2left lateral thigh abscess culture coming back with Proteus that is sensitive to cefepime patient on as well as to Cipro and Bactrim DS patient did have CT of the left thigh did not mention any abscess that need to be drained 3patient has developed a maculopapular rash more likely related to beta-lactam than the vancomycin, cefepime has been discontinued and he received a dose of Solu-Medrol yesterday continue with Benadryl as needed rash is improving 4patient will be treated with Bactrim DS to cover for the left thigh wound cellulitis and will continue with the vancomycin for his MRSA pneumonia. 5-white count slightly up today more likely steroid related and will monitor closely Dictation was produced using [employer] dictation software. please excuse any grammatical, word or spelling errors. Time with Patient: Less than 30
[2024-08-22 08:53] LABS: HCT 42.3 % (39.6-50.0); HGB 13.4 g/dL (13.0-17.0); MCH 31.5 pg (27.0-32.0); MCHC 31.7 g/dL (32.0-37.0); MCV 99.3 FL (80.0-97.0); Mean Platelet Volume 10.4 FL (9.5-12.2); NRBC Per 100 WBC 0 X 10*3/uL (0.00-0.01); Platelet Count 485 X 10*3/uL (140-440); RBC 4.26 X 10*6/uL (4.40-5.60); RDW 14.5 % (11.5-14.5); WBC 9.28 X 10*3/uL (4.50-10.00)
[2024-08-22 08:58] LABS: BUN/Creat Ratio 23.67 Ratio (12.00-20.00); Blood Urea Nitrogen 28.4 mg/dL (9.0-27.0); Glucose 220 mg/dL (70-110)
[2024-08-22 08:59] LABS: Calcium 9.2 mg/dL (8.7-10.3); Chloride 99 mmol/L (96-109); Potassium 5.1 mmol/L (3.5-5.5); Sodium 136 mmol/L (135-145)
--- NOTE | 2024-08-22 09:48 | P.PN ---
Subjective Progress Note Date: 08/22/24 54-year-old male came in with complaints of shortness of breath and chest pain which is pleuritic in nature patient had a CT of the chest which showed infiltrate which has masslike contour patient was here in month of July with cough and green sputum production at the time patient was treated for pneumonia patient has slightly elevated white count BNP within normal limits no lactic acidosis. Patient also has wound on the left thigh which is mostly healed and likely scar although it was draining because of which ultrasound was obtained which showed fluid collection but clinically does not appear to be abscess although cultures were obtained from this location. August 18, 2024 Patient seen and examined at bedside. He states today that he does not have any chest pain or shortness of breath. Sputum cultures with mixed gram-positive cocci and gram-negative bacilli with moderate PMNs. Cultures of right thigh resulted with Proteus vulgaris. ID and surgery consulted. He continues on Zosyn. Labs today WBC 13.63, hemoglobin 13.5, sodium 139, potassium 5.0, bicarb 26.9, gap 12.1, glucose 133. Procalcitonin 0.10. August 19, 2024 Patient seen and examined at bedside. He is denying chest pain and shortness of breath, however does endorse new maculopapular rash throughout the body that he states began yesterday, likely from beta-lactam. Sputum cultures resulted in MRSA. ID and surgery following, notes reviewed. Pulmonology following notes reviewed, no biopsy of the lung will be performed by IR at this time as feeling mass is mostly inflammatory or infectious rather than malignant. He we will continue with vancomycin, and add Bactrim, discontinued cefepime. Labs today WBC 12.1, hemoglobin 13.8, sodium 139, potassium 5.0, bicarb 25.2, gap 12.80, glucose 183. 08/20/2024 Patient is evaluated today in follow-up resting in bed. He reports improved shortness of breath. The rash she states is slightly improved however he is requiring Benadryl as he is feeling quite itchy. He was changed to IV vancomycin and oral Bactrim and taken off of the cefepime. No plans for inte rvention per interventional radiology he will continue antibiotics for now. White blood cell count 10.81, BUN of 21.5 creatinine of 1.2. 08/21/2024 Patient seen and examined at bedside. He reports continued improvement with breathing. He continues on IV vancomycin and oral Bactrim. Will discontinue Lasix and begin IV NS due to hypotension. WBC 16.91, hemoglobin 13.5, platelets 565, sodium 133, potassium 5.8, bicarb 23.6, anion gap 13.4, BUN 29.7, creatinine 1.3, glucose ranging 137-320. Chest x-ray left lung base consolidations representing airspace consolidation and less likely mass. 08/22/2024 Patient seen sitting up at bedside. He reports 4 days without bowel movements and improved itching from maculopapular rash. He continues on IV vancomycin and oral Bactrim. He continues on IV NS. Pulmonology planning for bronchoscopy on to evaluate lung mass. Today's labs WBC 9.28, sodium 136, potassium 5.1, bicarb 24, gap 13, BUN 28.4, creatinine 1.2, glucose 196. Review of Systems Constitutional: Denied any fatigue denied any fever. Cardio vascular: denied any chest pain, palpitations Gastrointestinal: denied any nausea, vomiting, diarrhea Pulmonary: Denied any shortness of breath cough Neurologic denied any new focal deficits All inpatient medications were reviewed and appropriate changes in these medications as dictated in the interval history and assessment and plan. PHYSICAL EXAMINATION: GENERAL: The patient is alert and oriented x3, not in any acute distress. Well developed, well nourished. Obese HEENT: Pupils are round and equally reacting to light. EOMI. No scleral icterus. No conjunctival pallor. Normocephalic, atraumatic. No pharyngeal erythema. No thyromegaly. CARDIOVASCULAR: S1 and S2 present. No murmurs, rubs, or gallops. PULMONARY: Chest is clear to auscultation, no wheezing or crackles. ABDOMEN: Soft, nontender, nondistended, normoactive bowel sounds. No palpable organomegaly. MUSCULOSKELETAL: No joint swelling or deformity. EXTREMITIES: No cyanosis, clubbing, or pedal edema. NEUROLOGICAL: Gross neurological examination did not reveal any focal deficits. SKIN: Wound on the left lateral side of the thigh as mentioned above, maculopapular rash throughout body Assessment and plan -left lower lobe pneumonia although malignancy cannot be excluded patient was started on antibiotics, continue Bactrim and vancomycin discontinue cefepime, pulmonology, ID following. Plan for bronchoscopy by pulmonology on MRSA infection treated as above Chronic constipation, increase MiraLAX 17 g twice daily, add Senokot twice daily -Shortness of breath secondary to pneumonia, resolved -COPD without any significant acute exacerbation -Serous drainage from the left thigh local wound care, ID and surgery following Drug reaction likely due to beta-lactam, Benadryl 25 mg as needed Hyperkalemia, given Lokelma, resolved Hyponatremia, discontinue Lasix begin IV NS, resolved -Type 2 diabetes mellitus increase basal dosing 20 units twice daily, continue sliding scale -Hypertension -Hyperlipidemia -Congestive heart failure chronic systolic function EF of around 40 to 50% without any acute exacerbation patient was resumed on home regimen patient is euvolemic at this time-atrial fibrillation Had a history of FRANSISCA cardioversion presently sinus rhythm on anticoagulation with Eliquis which was continued -Obesity DVT prophylaxis: On Eliquis Dr. Hazel MD I have performed a history and physical examination and medical decision making of this patient, discussed the same with the dictator, and agree with the dictators assessment and plan as written, documented as a scribe. Based on total visit time, I have performed more than 50% of this visit. Objective - Vital Signs Vital signs: Vital Signs Temp 97.4 F L 08/22/24 07:27 Pulse 72 08/22/24 08:10 Resp 17 08/22/24 07:27 BP 133/66 08/22/24 07:27 Pulse Ox 96 08/22/24 07:27 FiO2 Intake & Output 08/21/24 08/22/24 08/22/24 18:59 06:59 18:59 Intake Total 2540 Balance 2540 Intake: Oral 2540 Other: Voiding Method Toilet # Voids 1 0 # Bowel Movements 0 - Labs CBC & Chem 7: 08/22/24 04:36 08/22/24 04:36 Labs: Abnormal Lab Results - Last 24 Hours (Table) 08/21/24 08/21/24 08/21/24 Range/Units 12:07 16:58 20:23 RBC (4.40-5.60) X 10*6/uL MCV (80.0-97.0) FL MCHC (32.0-37.0) g/dL Plt Count (140-440) X 10*3/uL Anion Gap (4.00-12.00) mmol/L BUN (9.0-27.0) mg/dL BUN/Creatinine Ratio (12.00-20.00) Ratio Glucose (70-110) mg/dL POC Glucose (mg/dL) 320 H 348 H 334 H (70-110) mg/dL 08/22/24 08/22/24 08/22/24 Range/Units 04:36 04:36 07:30 RBC 4.26 L (4.40-5.60) X 10*6/uL MCV 99.3 H (80.0-97.0) FL MCHC 31.7 L (32.0-37.0) g/dL Plt Count 485 H (140-440) X 10*3/uL Anion Gap 13.00 H (4.00-12.00) mmol/L BUN 28.4 H (9.0-27.0) mg/dL BUN/Creatinine Ratio 23.67 H (12.00-20.00) Ratio Glucose 220 H (70-110) mg/dL POC Glucose (mg/dL) 196 H (70-110) mg/dL Microbiology - Last 24 Hours (Table) 08/16/24 14:26 Blood Culture - Final Blood
[2024-08-22] MEDS: SENNOSIDES-DOCUSATE SODIUM 1 EACH TAB PO SCH (11:03)
--- NOTE | 2024-08-22 11:58 | P.PN ---
Subjective Progress Note Date: 08/22/24 Patient is a 54-year-old male with past medical history significant for left- sided empyema status post thoracotomy and lung decortication, atrial fibrillation, heart failure, diabetes mellitus, hyperlipidemia, hypertension, left thigh abscess, multiple orthopedic surgeries, COPD, and heavy previous tobacco use. Back in 2017, patient had a complicated pneumonia developing a parapneumonic effusion/empyema, and did undergo left thoracotomy with complete decortication of the left lung and cryoablation of intercostal nerves 5 through 8. More recently patient was admitted back in July, with heart failure and A-fib RVR. On August 12, he did undergo FRANSISCA with cardioversion and successful conversion to normal sinus rhythm. Patient was ultimately discharged home on August 13. He returns to the emergency department yesterday afternoon complaining of shortness of breath. He states that the shortness of breath has been ongoing actually for a couple months. Worse over the last day or so. He has had associated cough with copious green sputum production. He states that his back pain on the left with coughing and deep breathing. Denies any measured fevers, does report occasional chills. No anterior chest pain or hemoptysis. Chest x-ray showed a suspicious masslike opacity projecting over the spine in the lateral view. New from prior recent chest x-ray done 08/04/24. The concern is for pneumonia. Chest CTA was performed down in the ER, showing a large masslike consolidation in the posterior left lung base. Measuring 9 x 7 cm. There was an adjacent pleural-based mass measuring 2.1 cm. Does admit 20 lb weight loss within last month. Denies personal history of malignancy. CBC: WBC count 13.9, hemoglobin 14.8, hematocrit 46.2, platelets 538. Sodium 136, potassium 4.8, chloride 104, serum bicarb 24, BUN 13, creatinine 0.75, glucose 186. Lactic 2. LFTs unremarkable. Troponin less than 0.012. NT proBNP 193. I am evaluating this patient on the general medical floor. He is sitting up in bed on room air. SpO2 96% . No measured fevers. Nontoxic appearance. There is large amount of green purulent sputum in bedside collection basin. He does have a left thigh wound and states that he previously had I&D of an abscess in May of the year. Over the last couple weeks, the area has started to become hard and painful again and had purulent drainage. The patient is seen today August 18, 2024 in follow-up on the regular medical floor. He is currently resting comfortably in bed. Awake and alert in no acute distress. He is maintaining good O2 saturations in the mid 90s on room air. He is afebrile. Hemodynamically stable. Sputum culture showing presumptive Staph aureus. Left thigh wound cultures showing Proteus vulgaris group. Blood culture pending. White count 13.6. Hemoglobin 13.5. Platelets 537. Sodium 139. Potassium 5.0. Bicarb 27. BUN 17. Creatinine 1.2. Glucose 133. He remains on bronchodilators. Antibiotics in the form of Zosyn. Remains on oral diuretics. Anticoagulated with Eliquis. The patient is seen today August 19, 2024 in follow-up on the regular medical floor. He is currently sitting up in bed. Awake and alert in no acute distress. Denies any worsening shortness of breath, cough or congestion. He states he is feeling better today compared to yesterday. Continues to maintain good O2 saturations in the 90s on room air. He is afebrile. Hemodynamically stable. Wound culture positive for Proteus vulgaris. Sputum culture positive for MRSA. White count 12.1. Hemoglobin 13.8. Platelets 541. Sodium 139. Potassium 5.0. Bicarb 25. BUN 18. Creatinine 1.0. Glucose 132. He remains on bronchodilators. Remains on cefepime and vancomycin. The patient is seen today August 20, 2024 in follow-up on the regular medical floor. He is currently resting comfortably in bed. Awake and alert in no acute distress. Continues to maintain good O2 saturations in the 90s on room air. He is continued on Symbicort, DuoNeb and elations. Antibiotics in the form of vancomycin and Bactrim. He remains on oral diuretics. Anticoagulated with Eliquis. Continued on Levemir and NovoLog sliding scale. CT scan of the left lower extremity revealed a small focal area of increased density in the subcutaneous soft tissues extending to the dermis in the lateral left thigh consistent with a small focal area of inflammation or possibly ulcer. No underlying abscess or discrete fluid collection noted. Wound culture was positive for Proteus vulgaris group. Sputum cultures positive for MRSA. White count 10.8. Hemoglobin 13.7. Platelets 532. Sodium 138. Potassium 4.7. Bicarb 24. BUN 22. Creatinine 1.2. Glucose 137. The patient is seen today August 21, 2024 in follow-up on the regular medical floor. He is awake and alert in no acute distress. Resting comfortably in bed. Maintaining O2 saturations in the 90s on room air. He has been afebrile. Hemodynamically stable. Chest x-ray shows left lung consolidation felt to represent airspace consolidation and less likely mass per radiology. Evidence of COPD changes. Culture positive for MRSA. Left thigh culture positive for Proteus vulgaris group. White count 16.9. Hemoglobin 13.5. Platelets 565. Sodium 133. Potassium 5.8. Bicarb 24. BUN 29. Creatinine 1.3. Glucose 300. The patient is seen today August 22, 2024 in follow-up on the regular medical floor. He is sitting up in bed. Awake and alert in no acute distress. M aintaining good O2 saturations in the mid 90s on room air. He has been afebrile. Hemodynamically stable. Denies any worsening shortness of breath, cough or congestion. He states he is coughing up black thick sputum. Sputum is positive for MRSA. Wound culture positive for Proteus vulgaris group. White count 9.2. Hemoglobin 13.4. Platelets 45. Sodium 136. Potassium 5.1. Bicarb 24. BUN 28. Creatinine 1.2. Glucose 220. He is anticoagulated with Eliquis. Continued on DuoNeb inhalations and Symbicort, antibiotics in the form of vancomycin Objective - Vital Signs Vital signs: Vital Signs Temp 97.4 F L 08/22/24 07:27 Pulse 68 08/22/24 11:32 Resp 17 08/22/24 07:27 BP 133/66 08/22/24 07:27 Pulse Ox 96 08/22/24 07:27 FiO2 Intake & Output 08/21/24 08/22/24 08/22/24 18:59 06:59 18:59 Intake Total 2540 Balance 2540 Intake: Oral 2540 Other: Voiding Method Toilet Toilet Urinal # Voids 1 0 # Bowel Movements 0 - Exam GENERAL EXAM: Alert, pleasant 54-year-old obese male, sitting up in bed, on room air, in no apparent distress. HEAD: Normocephalic and atraumatic EYES: Normal reaction of pupils, equal size. NOSE: Clear with pink turbinates. THROAT: No erythema or exudates. NECK: No masses, no JVD. CHEST: No chest wall deformity. Remote appearing healed thoracotomy incision left posterior back LUNGS: Equal air entry with focal dullness of the posterior left lower lobe with inspiratory crackles. No wheezes or rhonchi. CVS: S1 and S2 normal with no audible murmur, regular rhythm. No extra heart sounds ABDOMEN: No hepatosplenomegaly, active bowel sounds, no guarding or rigidity. SPINE: No scoliosis or deformity SKIN: No rashes. Left thigh wound with surrounding induration and erythema CENTRAL NERVOUS SYSTEM: No focal deficits, tone is normal in all 4 extremities. EXTREMITIES: There is bilateral lower extremity mild nonpitting edema. No clubbing, or cyanosis. Peripheral pulses are intact. - Labs CBC & Chem 7: 08/22/24 04:36 08/22/24 04:36 Labs: Abnormal Lab Results - Last 24 Hours (Table) 08/21/24 08/21/24 08/21/24 Range/Units 12:07 16:58 20:23 RBC (4.40-5.60) X 10*6/uL MCV (80.0-97.0) FL MCHC (32.0-37.0) g/dL Plt Count (140-440) X 10*3/uL Anion Gap (4.00-12.00) mmol/L BUN (9.0-27.0) mg/dL BUN/Creatinine Ratio (12.00-20.00) Ratio Glucose (70-110) mg/dL POC Glucose (mg/dL) 320 H 348 H 334 H (70-110) mg/dL 08/22/24 08/22/24 08/22/24 Range/Units 04:36 04:36 07:30 RBC 4.26 L (4.40-5.60) X 10*6/uL MCV 99.3 H (80.0-97.0) FL MCHC 31.7 L (32.0-37.0) g/dL Plt Count 485 H (140-440) X 10*3/uL Anion Gap 13.00 H (4.00-12.00) mmol/L BUN 28.4 H (9.0-27.0) mg/dL BUN/Creatinine Ratio 23.67 H (12.00-20.00) Ratio Glucose 220 H (70-110) mg/dL POC Glucose (mg/dL) 196 H (70-110) mg/dL Microbiology - Last 24 Hours (Table) 08/16/24 14:26 Blood Culture - Final Blood Assessment and Plan Assessment: Suspect left lower lobe pneumonia, HCAP, chest x-ray done on admission showing a new airspace retrocardiac opacity when compared to recent chest x-ray done on 08/04/2024. Better visualized on lateral view. A follow-up chest CT demonstrated a large masslike consolidation measuring 9 x 7 cm within the posterior left lung base with adjacent pleural base nodular opacity measuring 2.1 cm. Sputum culture revealing MRSA. Remains on vancomycin Acute dyspnea, secondary to above, stable and on room air Left thigh abscess status post I&D, patient is reporting increased pain, induration, and drainage. Cultures revealing Proteus vulgaris group Acute leukocytosis History of complicated left lung pneumonia with development of empyema, status post left thoracotomy and complete lung decortication in 2018 Chronic obstructive pulmonary disease, inactive Former tobacco dependence, with over [id number] history Hypertension Hyperlipidemia Diabetes mellitus type 2 History of heart failure with mildly reduced ejection fraction of 45 to 50%, moderate mitral and tricuspid regurgitation, patent PFO History of atrial fibrillation status post FRANSISCA/cardioversion, currently normal sinus rhythm Morbid obesity, with a BMI of 42.6 kg/m Plan: The patient was seen and evaluated Labs and medications reviewed Stable and on room air Remains on vancomycin Continued on DuoNebs and Symbicort Plan is for bronchoscopy on 08/24/2024 Eliquis placed on hold This patient was seen independently by the pulmonary nurse practitioner addressing pulmonary issues I have personally seen and examined the patient, performed the documentation and the assessment and plan as written. Number of minutes spent on the visit: 24 Dictation was produced using [employer] dictation software. Please excuse any grammatical, word or spelling errors.
[2024-08-22 12:27] LABS: Glucose,Whole Blood 141 mg/dL (70-110)
--- NOTE | 2024-08-22 13:37 | P.PN ---
Subjective Progress Note Date: 08/22/24 Principal diagnosis: Reason for follow-up is MRSA pneumonia left thigh wound cellulitis Patient is a 54-year-old male with a past medical history significant for diabetes mellitus hypertension hyperlipidemia fibromyalgia heart failure atrial fibrillation patient apparently did have a seroma to the left thigh that was drained by Dr. Montano on May 24, 2024 culture at that time did grow Enterococcus faecium, now presented to hospital mostly with increasing shortness of breath did have a CT of the chest with the left lung mass/pneumonia sputum is growing MRSA did have a CT of the left thigh did not mention any drainable abscess culture positive for Proteus. On today's evaluation that is 08/22/2024, Patient is afebrile this morning patient denies having any chest pain shortness of breath still having a cough and bring up some santizo sputum, the patient is currently on room air, patient denies any abdominal pain no diarrhea no nausea no vomiting, denies pain to the left thigh area. Patient white count is 9.28, creatinine is 1.2 Objective - Vital Signs Vital signs: Vital Signs Temp 98.2 F 08/22/24 13:04 Pulse 61 08/22/24 13:04 Resp 18 08/22/24 13:04 BP 141/80 08/22/24 13:04 Pulse Ox 96 08/22/24 13:04 FiO2 Intake & Output 08/21/24 08/22/24 08/22/24 18:59 06:59 18:59 Intake Total 2540 Balance 2540 Intake: Oral 2540 Other: Voiding Method Toilet Toilet Urinal # Voids 1 0 # Bowel Movements 0 - Exam GENERAL DESCRIPTION: Middle-age male lying in bed in no distress RESPIRATORY SYSTEM: Unlabored breathing , decreased breath sounds at bases HEART: S1 S2 regular rate and rhythm , ABDOMEN: Soft , no tenderness SKIN: Did have diffuse maculopapular rash no vesicle - Labs CBC & Chem 7: 08/22/24 04:36 08/22/24 04:36 Labs: Abnormal Lab Results - Last 24 Hours (Table) 08/21/24 08/21/24 08/22/24 Range/Units 16:58 20:23 04:36 RBC 4.26 L (4.40-5.60) X 10*6/uL MCV 99.3 H (80.0-97.0) FL MCHC 31.7 L (32.0-37.0) g/dL Plt Count 485 H (140-440) X 10*3/uL Anion Gap (4.00-12.00) mmol/L BUN (9.0-27.0) mg/dL BUN/Creatinine Ratio (12.00-20.00) Ratio Glucose (70-110) mg/dL POC Glucose (mg/dL) 348 H 334 H (70-110) mg/dL 08/22/24 08/22/24 08/22/24 Range/Units 04:36 07:30 12:25 RBC (4.40-5.60) X 10*6/uL MCV (80.0-97.0) FL MCHC (32.0-37.0) g/dL Plt Count (140-440) X 10*3/uL Anion Gap 13.00 H (4.00-12.00) mmol/L BUN 28.4 H (9.0-27.0) mg/dL BUN/Creatinine Ratio 23.67 H (12.00-20.00) Ratio Glucose 220 H (70-110) mg/dL POC Glucose (mg/dL) 196 H 141 H (70-110) mg/dL Microbiology - Last 24 Hours (Table) 08/16/24 14:26 Blood Culture - Final Blood Assessment and Plan (1) Abscess of left thigh Current Visit: Yes Status: Acute Code(s): L02.416 - CUTANEOUS ABSCESS OF LEFT LOWER LIMB SNOMED Code(s): 02968703369610516 (2) Lung mass Current Visit: Yes Status: Acute Code(s): R91.8 - OTHER NONSPECIFIC ABNORMAL FINDING OF LUNG FIELD SNOMED Code(s): 068013380 (3) Pneumonia Current Visit: No Status: Acute Code(s): J18.9 - PNEUMONIA, UNSPECIFIED ORGANISM SNOMED Code(s): 987555582 (4) Drug rash Current Visit: Yes Status: Acute Code(s): L27.0 - GEN SKIN ERUPTION DUE TO DRUGS AND MEDS TAKEN INTERNALLY SNOMED Code(s): 85942709 Plan: 1patient presented to hospital with increasing shortness of breath and this patient who did have CT imaging of the chest concerning for a lung mass underlying neoplasm not excluded pneumonia needs to be rule out with a sputum growing Staph aureus which has been finalized with MRSA likely competent of pneumonia 2left lateral thigh abscess culture coming back with Proteus that is sensitive to cefepime patient on as well as to Cipro and Bactrim DS patient did have CT of the left thigh did not mention any abscess that need to be drained 3patient has developed a maculopapular rash more likely related to beta-lactam than the vancomycin, cefepime has been discontinued and he received a dose of Solu-Medrol, patient continue with Benadryl as needed rash is improving 4patient currently being treated with Bactrim DS to cover for the left thigh wound cellulitis along with vancomycin for his MRSA pneumonia and monitor clinical course closely. Dictation was produced using [employer] dictation software. please excuse any grammatical, word or spelling errors. Time with Patient: Less than 30
--- NOTE | 2024-08-22 15:05 | P.PN ---
Subjective Progress Note Date: 08/22/24 SURGICAL PROGRESS NOTE CHIEF COMPLAINT: Shortness of breath HISTORY OF PRESENT ILLNESS: Surgical service following in regards to left thigh lateral skin lesion. There is no drainable abscess noted on CAT scan. No new complaints. Pulmonary has patient scheduled for bronchoscopy with biopsies on . WBC has normalized from 16.9-9.28 PHYSICAL EXAM: VITAL SIGNS: Reviewed. GENERAL: Well-developed in no acute distress. Abdomen: Soft Extremities: Left thigh lateral skin lesion. Nontender with palpation. No drainage noted at this time. No erythema. ASSESSMENT: 1. Left thigh skin lesion appears stable PLAN: -Patient be followed as outpatient for excision of the diseased area of skin Physician Fox Raiser note has been reviewed by physician. Signing provider agrees with the documented findings, assessment, and plan of care. Objective - Vital Signs Vital signs: Vital Signs Temp 98.2 F 08/22/24 13:04 Pulse 61 08/22/24 13:04 Resp 18 08/22/24 13:04 BP 141/80 08/22/24 13:04 Pulse Ox 96 08/22/24 13:04 FiO2 Intake & Output 08/21/24 08/22/24 08/22/24 18:59 06:59 18:59 Intake Total 2540 Balance 2540 Intake: Oral 2540 Other: Voiding Method Toilet Toilet Urinal # Voids 1 0 # Bowel Movements 0 - Labs CBC & Chem 7: 08/22/24 04:36 08/22/24 04:36 Labs: Abnormal Lab Results - Last 24 Hours (Table) 08/21/24 08/21/24 08/22/24 Range/Units 16:58 20:23 04:36 RBC 4.26 L (4.40-5.60) X 10*6/uL MCV 99.3 H (80.0-97.0) FL MCHC 31.7 L (32.0-37.0) g/dL Plt Count 485 H (140-440) X 10*3/uL Anion Gap (4.00-12.00) mmol/L BUN (9.0-27.0) mg/dL BUN/Creatinine Ratio (12.00-20.00) Ratio Glucose (70-110) mg/dL POC Glucose (mg/dL) 348 H 334 H (70-110) mg/dL 08/22/24 08/22/2408/22/24 Range/Units 04:36 07:30 12:25 RBC (4.40-5.60) X 10*6/uL MCV (80.0-97.0) FL MCHC (32.0-37.0) g/dL Plt Count (140-440) X 10*3/uL Anion Gap 13.00 H (4.00-12.00) mmol/L BUN 28.4 H (9.0-27.0) mg/dL BUN/Creatinine Ratio 23.67 H (12.00-20.00) Ratio Glucose 220 H (70-110) mg/dL POC Glucose (mg/dL) 196 H 141 H (70-110) mg/dL Microbiology - Last 24 Hours (Table) 08/16/24 14:26 Blood Culture - Final Blood
[2024-08-22 17:29] LABS: Glucose,Whole Blood 241 mg/dL (70-110)
[2024-08-22 20:18] LABS: Glucose,Whole Blood 189 mg/dL (70-110)
[2024-08-22] MEDS: polyethylene glycoL 3350 17 GM POWD.PACK PO SCH (21:34)
[2024-08-23 07:16] LABS: Glucose,Whole Blood 149 mg/dL (70-110)
[2024-08-23 09:21] LABS: HCT 41.4 % (39.6-50.0); MCH 31.3 pg (27.0-32.0); MCHC 31.4 g/dL (32.0-37.0); MCV 99.5 FL (80.0-97.0); Mean Platelet Volume 10.4 FL (9.5-12.2); NRBC Per 100 WBC 0 X 10*3/uL (0.00-0.01); Platelet Count 469 X 10*3/uL (140-440); RBC 4.16 X 10*6/uL (4.40-5.60); RDW 14.6 % (11.5-14.5); WBC 12.02 X 10*3/uL (4.50-10.00)
[2024-08-23 10:07] LABS: BUN/Creat Ratio 20.45 Ratio (12.00-20.00); Blood Urea Nitrogen 22.5 mg/dL (9.0-27.0); Calcium 9.2 mg/dL (8.7-10.3); Carbon Dioxide 26.7 mmol/L (21.6-31.8); Chloride 103 mmol/L (96-109); Glucose 141 mg/dL (70-110); Potassium 4.8 mmol/L (3.5-5.5); Sodium 140 mmol/L (135-145)
[2024-08-23 12:18] LABS: Glucose,Whole Blood 209 mg/dL (70-110)
--- NOTE | 2024-08-23 12:44 | P.PN ---
Subjective Progress Note Date: 08/23/24 SURGICAL PROGRESS NOTE CHIEF COMPLAINT: Shortness of breath HISTORY OF PRESENT ILLNESS: Surgical service following in regards to left thigh lateral skin lesion. There is no drainable abscess noted on CAT scan. No new complaints. Pulmonary has patient scheduled for bronchoscopy with biopsies on . wbc elevated at 12.02 PHYSICAL EXAM: VITAL SIGNS: Reviewed. GENERAL: Well-developed in no acute distress. Abdomen: Soft Extremities: Left thigh lateral skin lesion. Nontender with palpation. No drainage noted at this time. No erythema. ASSESSMENT: 1. Left thigh skin lesion appears stable PLAN: -Patient be followed as outpatient for excision of the diseased area of skin Physician Shear Tender note has been reviewed by physician. Signing provider agrees with the documented findings, assessment, and plan of care. Objective - Vital Signs Vital signs: Vital Signs Temp 97.4 F L 08/23/24 12:14 Pulse 103 H 08/23/24 12:14 Resp 22 08/23/24 12:14 BP 114/72 08/23/24 12:14 Pulse Ox 95 08/23/24 12:14 FiO2 Intake & Output 08/22/24 08/23/24 08/23/24 18:59 06:59 18:59 Intake Total 2654 Balance 2654 Intake: Intake, IV Titration 1400 Amount Sodium Chloride 0.9% 1, 900 000 ml @ 100 mls/hr IV . Q10H [facility] Rx#:[id number] Vancomycin 2,500 mg In 500 Sodium Chloride 0.9% 500 ml 500 ml @ 167 mls/hr IVPB Q12HR [facility] Rx#: [id number] Oral 1254 Other: Voiding Method Toilet Toilet Urinal Urinal # Voids 2 1 - Labs CBC & Chem 7: 08/23/24 04:35 08/23/24 04:35 Labs: Abnormal Lab Results - Last 24 Hours (Table) 08/22/24 08/22/24 08/23/24 Range/Units 17:28 20:16 04:35 WBC 12.02 H (4.50-10.00) X 10*3/uL RBC 4.16 L (4.40-5.60) X 10*6/uL MCV 99.5 H (80.0-97.0) FL MCHC 31.4 L (32.0-37.0) g/dL RDW 14.6 H (11.5-14.5) % Plt Count 469 H (140-440) X 10*3/uL BUN/Creatinine Ratio (12.00-20.00) Ratio Glucose (70-110) mg/dL POC Glucose (mg/dL) 241 H 189 H (70-110) mg/dL 08/23/24 08/23/24 08/23/24 Range/Units 04:35 07:15 12:16 WBC (4.50-10.00) X 10*3/uL RBC (4.40-5.60) X 10*6/uL MCV (80.0-97.0) FL MCHC (32.0-37.0) g/dL RDW (11.5-14.5) % Plt Count (140-440) X 10*3/uL BUN/Creatinine Ratio 20.45 H (12.00-20.00) Ratio Glucose 141 H (70-110) mg/dL POC Glucose (mg/dL) 149 H 209 H (70-110) mg/dL Microbiology - Last 24 Hours (Table) 08/17/24 02:15 Anaerobic Culture - Final Thigh - Left
[2024-08-23] MEDS: LACTULOSE 20 GM/30 ML CUP PO ONE (12:54)
--- NOTE | 2024-08-23 13:14 | P.PN ---
Subjective Progress Note Date: 08/23/24 54-year-old male came in with complaints of shortness of breath and chest pain which is pleuritic in nature patient had a CT of the chest which showed infiltrate which has masslike contour patient was here in month of July with cough and green sputum production at the time patient was treated for pneumonia patient has slightly elevated white count BNP within normal limits no lactic acidosis. Patient also has wound on the left thigh which is mostly healed and likely scar although it was draining because of which ultrasound was obtained which showed fluid collection but clinically does not appear to be abscess although cultures were obtained from this location. August 18, 2024 Patient seen and examined at bedside. He states today that he does not have any chest pain or shortness of breath. Sputum cultures with mixed gram-positive cocci and gram-negative bacilli with moderate PMNs. Cultures of right thigh resulted with Proteus vulgaris. ID and surgery consulted. He continues on Zosyn. Labs today WBC 13.63, hemoglobin 13.5, sodium 139, potassium 5.0, bicarb 26.9, gap 12.1, glucose 133. Procalcitonin 0.10. August 19, 2024 Patient seen and examined at bedside. He is denying chest pain and shortness of breath, however does endorse new maculopapular rash throughout the body that he states began yesterday, likely from beta-lactam. Sputum cultures resulted in MRSA. ID and surgery following, notes reviewed. Pulmonology following notes reviewed, no biopsy of the lung will be performed by IR at this time as feeling mass is mostly inflammatory or infectious rather than malignant. He we will continue with vancomycin, and add Bactrim, discontinued cefepime. Labs today WBC 12.1, hemoglobin 13.8, sodium 139, potassium 5.0, bicarb 25.2, gap 12.80, glucose 183. 08/20/2024 Patient is evaluated today in follow-up resting in bed. He reports improved shortness of breath. The rash she states is slightly improved however he is requiring Benadryl as he is feeling quite itchy. He was changed to IV vancomycin and oral Bactrim and taken off of the cefepime. No plans for inte rvention per interventional radiology he will continue antibiotics for now. White blood cell count 10.81, BUN of 21.5 creatinine of 1.2. 08/21/2024 Patient seen and examined at bedside. He reports continued improvement with breathing. He continues on IV vancomycin and oral Bactrim. Will discontinue Lasix and begin IV NS due to hypotension. WBC 16.91, hemoglobin 13.5, platelets 565, sodium 133, potassium 5.8, bicarb 23.6, anion gap 13.4, BUN 29.7, creatinine 1.3, glucose ranging 137-320. Chest x-ray left lung base consolidations representing airspace consolidation and less likely mass. 08/22/2024 Patient seen sitting up at bedside. He reports 4 days without bowel movements and improved itching from maculopapular rash. He continues on IV vancomycin and oral Bactrim. He continues on IV NS. Pulmonology planning for bronchoscopy on to evaluate lung mass. Today's labs WBC 9.28, sodium 136, potassium 5.1, bicarb 24, gap 13, BUN 28.4, creatinine 1.2, glucose 196. 08/23/2024 Patient seen sitting up at bedside. He continues to have constipation, given lactulose. No dyspnea or pain. He continues on IV vancomycin and oral Bactrim. He continues on IV NS. Pulmonology planning for bronchoscopy on to evaluate lung mass. Today's labs WBC 12.0 , sodium 140, potassium 4.8, bicarb 26, gap 10, BUN 22.5, creatinine 1.1, glucose 141. Review of Systems Constitutional: Denied any fatigue denied any fever. Cardio vascular: denied any chest pain, palpitations Gastrointestinal: denied any nausea, vomiting, diarrhea Pulmonary: Denied any shortness of breath cough Neurologic denied any new focal deficits All inpatient medications were reviewed and appropriate changes in these medications as dictated in the interval history and assessment and plan. PHYSICAL EXAMINATION: GENERAL: The patient is alert and oriented x3, not in any acute distress. Well developed, well nourished. Obese HEENT: Pupils are round and equally reacting to light. EOMI. No scleral icterus. No conjunctival pallor. Normocephalic, atraumatic. No pharyngeal erythema. No thyromegaly. CARDIOVASCULAR: S1 and S2 present. No murmurs, rubs, or gallops. PULMONARY: Chest is clear to auscultation, no wheezing or crackles. ABDOMEN: Soft, nontender, nondistended, normoactive bowel sounds. No palpable organomegaly. MUSCULOSKELETAL: No joint swelling or deformity. EXTREMITIES: No cyanosis, clubbing, or pedal edema. NEUROLOGICAL: Gross neurological examination did not reveal any focal deficits. SKIN: Wound on the left lateral side of the thigh as mentioned above, maculopapular rash throughout body Assessment and plan -left lower lobe pneumonia although malignancy cannot be excluded patient was started on antibiotics, continue Bactrim and vancomycin discontinue cefepime, pulmonology, ID following. Plan for bronchoscopy by pulmonology on MRSA infection treated as above Chronic constipation, increase MiraLAX 17 g twice daily, add Senokot twice daily, lactulose given. -Shortness of breath secondary to pneumonia, resolved -COPD without any significant acute exacerbation -Serous drainage from the left thigh local wound care, ID and surgery following Drug reaction likely due to beta-lactam, Benadryl 25 mg as needed Hyperkalemia, given Lokelma, resolved Hyponatremia, discontinue Lasix begin IV NS, resolved -Type 2 diabetes mellitus increase basal dosing 20 units twice daily, continue sliding scale -Hypertension -Hyperlipidemia -Congestive heart failure chronic systolic function EF of around 40 to 50% without any acute exacerbation patient was resumed on home regimen patient is euvolemic at this time-atrial fibrillation Had a history of FRANSISCA cardioversion presently sinus rhythm on anticoagulation with Eliquis d/c -Obesity DVT prophylaxis: eliquis holding Dr. Hazel MD I have performed a history and physical examination and medical decision making of this patient, discussed the same with the dictator, and agree with the dictators assessment and plan as written, documented as a scribe. Based on total visit time, I have performed more than 50% of this visit. Objective - Vital Signs Vital signs: Vital Signs Temp 97.4 F L 08/23/24 12:14 Pulse 103 H 08/23/24 12:14 Resp 22 08/23/24 12:14 BP 114/72 08/23/24 12:14 Pulse Ox 95 08/23/24 12:14 FiO2 Intake & Output 08/22/24 08/23/24 08/23/24 18:59 06:59 18:59 Intake Total 2654 Balance 2654 Intake: Intake, IV Titration 1400 Amount Sodium Chloride 0.9% 1, 900 000 ml @ 100 mls/hr IV . Q10H [facility] Rx#:[id number] Vancomycin 2,500 mg In 500 Sodium Chloride 0.9% 500 ml 500 ml @ 167 mls/hr IVPB Q12HR [facility] Rx#: [id number] Oral 1254 Other: Voiding Method Toilet Toilet Urinal Urinal # Voids 2 1 - Labs CBC & Chem 7: 08/23/24 04:35 08/23/24 04:35 Labs: Abnormal Lab Results - Last 24 Hours (Table) 08/22/24 08/22/24 08/23/24 Range/Units 17:28 20:16 04:35 WBC 12.02 H (4.50-10.00) X 10*3/uL RBC 4.16 L (4.40-5.60) X 10*6/uL MCV 99.5 H (80.0-97.0) FL MCHC 31.4 L (32.0-37.0) g/dL RDW 14.6 H (11.5-14.5) % Plt Count 469 H (140-440) X 10*3/uL BUN/Creatinine Ratio (12.00-20.00) Ratio Glucose (70-110) mg/dL POC Glucose (mg/dL) 241 H 189 H (70-110) mg/dL 08/23/24 08/23/24 08/23/24 Range/Units 04:35 07:15 12:16 WBC (4.50-10.00) X 10*3/uL RBC (4.40-5.60) X 10*6/uL MCV (80.0-97.0) FL MCHC (32.0-37.0) g/dL RDW (11.5-14.5) % Plt Count (140-440) X 10*3/uL BUN/Creatinine Ratio 20.45 H (12.00-20.00) Ratio Glucose 141 H (70-110) mg/dL POC Glucose (mg/dL) 149 H 209 H (70-110) mg/dL Microbiology - Last 24 Hours (Table) 08/17/24 02:15 Anaerobic Culture - Final Thigh - Left
--- NOTE | 2024-08-23 14:21 | P.PN ---
Subjective Progress Note Date: 08/23/24 Patient is a 54-year-old male with past medical history significant for left- sided empyema status post thoracotomy and lung decortication, atrial fibrillation, heart failure, diabetes mellitus, hyperlipidemia, hypertension, left thigh abscess, multiple orthopedic surgeries, COPD, and heavy previous tobacco use. Back in 2017, patient had a complicated pneumonia developing a parapneumonic effusion/empyema, and did undergo left thoracotomy with complete decortication of the left lung and cryoablation of intercostal nerves 5 through 8. More recently patient was admitted back in July, with heart failure and A-fib RVR. On August 12, he did undergo FRANSISCA with cardioversion and successful conversion to normal sinus rhythm. Patient was ultimately discharged home on August 13. He returns to the emergency department yesterday afternoon complaining of shortness of breath. He states that the shortness of breath has been ongoing actually for a couple months. Worse over the last day or so. He has had associated cough with copious green sputum production. He states that his back pain on the left with coughing and deep breathing. Denies any measured fevers, does report occasional chills. No anterior chest pain or hemoptysis. Chest x-ray showed a suspicious masslike opacity projecting over the spine in the lateral view. New from prior recent chest x-ray done 08/04/24. The concern is for pneumonia. Chest CTA was performed down in the ER, showing a large masslike consolidation in the posterior left lung base. Measuring 9 x 7 cm. There was an adjacent pleural-based mass measuring 2.1 cm. Does admit 20 lb weight loss within last month. Denies personal history of malignancy. CBC: WBC count 13.9, hemoglobin 14.8, hematocrit 46.2, platelets 538. Sodium 136, potassium 4.8, chloride 104, serum bicarb 24, BUN 13, creatinine 0.75, glucose 186. Lactic 2. LFTs unremarkable. Troponin less than 0.012. NT proBNP 193. I am evaluating this patient on the general medical floor. He is sitting up in bed on room air. SpO2 96% . No measured fevers. Nontoxic appearance. There is large amount of green purulent sputum in bedside collection basin. He does have a left thigh wound and states that he previously had I&D of an abscess in May of the year. Over the last couple weeks, the area has started to become hard and painful again and had purulent drainage. The patient is seen today August 18, 2024 in follow-up on the regular medical floor. He is currently resting comfortably in bed. Awake and alert in no acute distress. He is maintaining good O2 saturations in the mid 90s on room air. He is afebrile. Hemodynamically stable. Sputum culture showing presumptive Staph aureus. Left thigh wound cultures showing Proteus vulgaris group. Blood culture pending. White count 13.6. Hemoglobin 13.5. Platelets 537. Sodium 139. Potassium 5.0. Bicarb 27. BUN 17. Creatinine 1.2. Glucose 133. He remains on bronchodilators. Antibiotics in the form of Zosyn. Remains on oral diuretics. Anticoagulated with Eliquis. The patient is seen today August 19, 2024 in follow-up on the regular medical floor. He is currently sitting up in bed. Awake and alert in no acute distress. Denies any worsening shortness of breath, cough or congestion. He states he is feeling better today compared to yesterday. Continues to maintain good O2 saturations in the 90s on room air. He is afebrile. Hemodynamically stable. Wound culture positive for Proteus vulgaris. Sputum culture positive for MRSA. White count 12.1. Hemoglobin 13.8. Platelets 541. Sodium 139. Potassium 5.0. Bicarb 25. BUN 18. Creatinine 1.0. Glucose 132. He remains on bronchodilators. Remains on cefepime and vancomycin. The patient is seen today August 20, 2024 in follow-up on the regular medical floor. He is currently resting comfortably in bed. Awake and alert in no acute distress. Continues to maintain good O2 saturations in the 90s on room air. He is continued on Symbicort, DuoNeb and elations. Antibiotics in the form of vancomycin and Bactrim. He remains on oral diuretics. Anticoagulated with Eliquis. Continued on Levemir and NovoLog sliding scale. CT scan of the left lower extremity revealed a small focal area of increased density in the subcutaneous soft tissues extending to the dermis in the lateral left thigh consistent with a small focal area of inflammation or possibly ulcer. No underlying abscess or discrete fluid collection noted. Wound culture was positive for Proteus vulgaris group. Sputum cultures positive for MRSA. White count 10.8. Hemoglobin 13.7. Platelets 532. Sodium 138. Potassium 4.7. Bicarb 24. BUN 22. Creatinine 1.2. Glucose 137. The patient is seen today August 21, 2024 in follow-up on the regular medical floor. He is awake and alert in no acute distress. Resting comfortably in bed. Maintaining O2 saturations in the 90s on room air. He has been afebrile. Hemodynamically stable. Chest x-ray shows left lung consolidation felt to represent airspace consolidation and less likely mass per radiology. Evidence of COPD changes. Culture positive for MRSA. Left thigh culture positive for Proteus vulgaris group. White count 16.9. Hemoglobin 13.5. Platelets 565. Sodium 133. Potassium 5.8. Bicarb 24. BUN 29. Creatinine 1.3. Glucose 300. The patient is seen today August 22, 2024 in follow-up on the regular medical floor. He is sitting up in bed. Awake and alert in no acute distress. M aintaining good O2 saturations in the mid 90s on room air. He has been afebrile. Hemodynamically stable. Denies any worsening shortness of breath, cough or congestion. He states he is coughing up black thick sputum. Sputum is positive for MRSA. Wound culture positive for Proteus vulgaris group. White count 9.2. Hemoglobin 13.4. Platelets 45. Sodium 136. Potassium 5.1. Bicarb 24. BUN 28. Creatinine 1.2. Glucose 220. He is anticoagulated with Eliquis. Continued on DuoNeb inhalations and Symbicort, antibiotics in the form of vancomycin The patient is seen today August 23, 2024 in follow-up on the regular medical floor. He is resting comfortably in bed. Awake and alert in no acute distress. Continues to maintain good O2 saturations in the mid 90s on room air. He has been afebrile. Hemodynamically stable. Breathing easier today compared to yesterday. Left thigh culture positive for Proteus vulgaris. Sputum culture positive for MRSA.. Hemoglobin 13.0. Platelets 469. Sodium 140. Potassium 4.8. Bicarb 27. BUN 23. Creatinine 1.1. Glucose 141. Vancomycin. Continued on DuoNeb and elations, Symbicort. Eliquis on hold. Objective - Vital Signs Vital signs: Vital Signs Temp 97.4 F L 08/23/24 12:14 Pulse 103 H 12/11/24 12:14 Resp 22 08/23/24 12:14 BP 114/72 08/23/24 12:14 Pulse Ox 95 08/23/24 12:14 FiO2 Intake & Output 08/22/24 08/23/24 08/23/24 18:59 06:59 18:59 Intake Total 2654 Balance 2654 Intake: Intake, IV Titration 1400 Amount Sodium Chloride 0.9% 1, 900 000 ml @ 100 mls/hr IV . Q10H [facility] Rx#:[id number] Vancomycin 2,500 mg In 500 Sodium Chloride 0.9% 500 ml 500 ml @ 167 mls/hr IVPB Q12HR [facility] Rx#: [id number] Oral 1254 Other: Voiding Method Toilet Toilet Urinal Urinal # Voids 2 1 - Exam GENERAL EXAM: Alert, 54-year-old obese male, on room air, in no apparent distress. HEAD: Normocephalic and atraumatic EYES: Normal reaction of pupils, equal size. NOSE: Clear with pink turbinates. THROAT: No erythema or exudates. NECK: No masses, no JVD. CHEST: No chest wall deformity. Remote appearing healed thoracotomy incision left posterior back LUNGS: Equal air entry with focal dullness of the posterior left lower lobe with inspiratory crackles. No wheezes or rhonchi. CVS: S1 and S2 normal with no audible murmur, regular rhythm. No extra heart sounds ABDOMEN: No hepatosplenomegaly, active bowel sounds, no guarding or rigidity. SPINE: No scoliosis or deformity SKIN: No rashes. Left thigh wound with surrounding induration and erythema CENTRAL NERVOUS SYSTEM: No focal deficits, tone is normal in all 4 extremities. EXTREMITIES: There is bilateral lower extremity mild nonpitting edema. No clubbing, or cyanosis. Peripheral pulses are intact. - Labs CBC & Chem 7: 08/23/24 04:35 08/23/24 04:35 Labs: Abnormal Lab Results - Last 24 Hours (Table) 08/22/24 08/22/24 08/23/24 Range/Units 17:28 20:16 04:35 WBC 12.02 H (4.50-10.00) X 10*3/uL RBC 4.16 L (4.40-5.60) X 10*6/uL MCV 99.5 H (80.0-97.0) FL MCHC 31.4 L (32.0-37.0) g/dL RDW 14.6 H (11.5-14.5) % Plt Count 469 H (140-440) X 10*3/uL BUN/Creatinine Ratio (12.00-20.00) Ratio Glucose (70-110) mg/dL POC Glucose (mg/dL) 241 H 189 H (70-110) mg/dL 08/23/24 08/23/24 08/23/24 Range/Units 04:35 07:15 12:16 WBC (4.50-10.00) X 10*3/uL RBC (4.40-5.60) X 10*6/uL MCV (80.0-97.0) FL MCHC (32.0-37.0) g/dL RDW (11.5-14.5) % Plt Count (140-440) X 10*3/uL BUN/Creatinine Ratio 20.45 H (12.00-20.00) Ratio Glucose 141 H (70-110) mg/dL POC Glucose (mg/dL) 149 H 209 H (70-110) mg/dL Microbiology - Last 24 Hours (Table) 08/17/24 02:15 Anaerobic Culture - Final Thigh - Left Assessment and Plan Assessment: Suspect left lower lobe pneumonia, HCAP, chest x-ray done on admission showing a new airspace retrocardiac opacity when compared to recent chest x-ray done on 08/04/2024. Better visualized on lateral view. A follow-up chest CT demonstrated a large masslike consolidation measuring 9 x 7 cm within the posterior left lung base with adjacent pleural base nodular opacity measuring 2.1 cm. Sputum culture revealing MRSA. Remains on vancomycin Acute dyspnea, secondary to above, stable and on room air Left thigh abscess status post I&D, patient is reporting increased pain, induration, and drainage. Cultures revealing Proteus vulgaris group Acute leukocytosis History of complicated left lung pneumonia with development of empyema, status post left thoracotomy and complete lung decortication in 2018 Chronic obstructive pulmonary disease, inactive Former tobacco dependence, with over [id number] history Hypertension Hyperlipidemia Diabetes mellitus type 2 History of heart failure with mildly reduced ejection fraction of 45 to 50%, moderate mitral and tricuspid regurgitation, patent PFO History of atrial fibrillation status post FRANSISCA/cardioversion, currently normal sinus rhythm Morbid obesity, with a BMI of 42.6 kg/m Plan: The patient was seen and evaluated Labs and medications reviewed Stable and on room air Remains on vancomycin Plan is for bronchoscopy tomorrow Eliquis remains on hold This patient was seen independently by the pulmonary nurse practitioner addressing pulmonary issues I have personally seen and examined the patient, performed the documentation and the assessment and plan as written. Number of minutes spent on the visit: 23 Dictation was produced using [employer] dictation software. Please excuse any grammatical, word or spelling errors.
[2024-08-23 16:51] LABS: Glucose,Whole Blood 121 mg/dL (70-110)
[2024-08-23 19:55] LABS: Glucose,Whole Blood 154 mg/dL (70-110)
[2024-08-23] MEDS: LACTULOSE 20 GM/30 ML CUP PO PRN (21:17)
[2024-08-24 07:40] LABS: Glucose,Whole Blood 132 mg/dL (70-110)
[2024-08-24 07:52] VITALS: RESP 20
[2024-08-24 08:57] LABS: HCT 41.6 % (39.0-53.0); HGB 13.2 gm/dL (13.0-17.5); MCH 30.7 pg (25.0-35.0); MCHC 31.7 g/dL (31.0-37.0); MCV 96.9 fL (80.0-100.0); Mean Platelet Volume 7.8; Platelet Count 447 k/uL (150-450); RBC 4.29 m/uL (4.30-5.90); RDW 14.3 % (11.5-15.5); WBC 10.9 k/uL (3.8-10.6)
[2024-08-24 09:03] LABS: African American GFR (CKD) >90 (>60 ml/min/1.73 sqM); Anion Gap 3 mmol/L; Blood Urea Nitrogen 17 mg/dL (9-20); Calcium 9.3 mg/dL (8.4-10.2); Carbon Dioxide 30 mmol/L (22-30); Chloride 103 mmol/L (98-107); Glucose 119 mg/dL (74-99); Non-African American GFR(CKD) >90 (>60 ml/min/1.73 sqM); Potassium 4.4 mmol/L (3.5-5.1); Sodium 136 mmol/L (137-145)
[2024-08-24] MEDS: VANCOMYCIN TROUGH DUE 1 EACH MISC MISCELLANE ONE (09:16)
[2024-08-24] MEDS: IV FLUID CONTINUATION 1,000 ML IV ONE (11:30)
[2024-08-24] MEDS ORDERED: KETAMINE HCL IN 0.9 % NACL 50 MG/5 ML SYRINGE ONE (11:36)
[2024-08-24] MEDS ORDERED: PROPOFOL 10 MG/ML 20 ML VIAL IV ONE (11:36)
[2024-08-24] MEDS ORDERED: fentaNYL (PF) 50 MCG/ML 2 ML AMP ONE (11:36)
[2024-08-24] MEDS ORDERED: MIDAZOLAM 2 MG/2 ML VIAL ONE (11:36)
[2024-08-24] MEDS ORDERED: GLYCOPYRROLATE 0.2 MG/ML 2 ML VIAL ONE (11:36)
[2024-08-24] MEDS: LIDOCAINE 2% INJ 20 MG/ML INTRATRACH ONE (11:55)
[2024-08-24 12:33] LABS: Glucose,Whole Blood 114 mg/dL (70-110)
[2024-08-24 12:42] VITALS: BP 154/124; PULSE 69; TEMP 97.7
--- NOTE | 2024-08-24 12:45 | P.PN ---
Subjective Progress Note Date: 08/23/24 Principal diagnosis: Reason for follow-up is MRSA pneumonia left thigh wound cellulitis Patient is a 54-year-old male with a past medical history significant for diabetes mellitus hypertension hyperlipidemia fibromyalgia heart failure atrial fibrillation patient apparently did have a seroma to the left thigh that was drained by Dr. Montano on May 24, 2024 culture at that time did grow Enterococcus faecium, now presented to hospital mostly with increasing shortness of breath did have a CT of the chest with the left lung mass/pneumonia sputum is growing MRSA did have a CT of the left thigh did not mention any drainable abscess culture positive for Proteus. On today's evaluation that is 08/23/2024,the patient denies any fever or any chills, patient is breathing comfortably on room air, the patient denies chest pain shortness of breath and cough has decreased in intensity, patient denies abdominal pain, no nausea vomiting or diarrhea rather complaining of constipation with no bowel movement for the last few days. Patient white count slightly up to 12.02 today, creatinine is 1.1 Objective - Vital Signs Vital signs: Vital Signs Temp 97.4 F L 08/23/24 12:14 Pulse 103 H 08/23/24 12:14 Resp 22 08/23/24 12:14 BP 114/72 08/23/24 12:14 Pulse Ox 95 08/23/24 12:14 FiO2 Intake & Output 08/22/24 08/23/24 08/23/24 18:59 06:59 18:59 Intake Total 2654 Balance 2654 Intake: Intake, IV Titration 1400 Amount Sodium Chloride 0.9% 1, 900 000 ml @ 100 mls/hr IV . Q10H [facility] Rx#:[id number] Vancomycin 2,500 mg In 500 Sodium Chloride 0.9% 500 ml 500 ml @ 167 mls/hr IVPB Q12HR [facility] Rx#: [id number] Oral 1254 Other: Voiding Method Toilet Toilet Urinal Urinal # Voids 2 1 - Exam GENERAL DESCRIPTION: Middle-age male lying in bed in no distress RESPIRATORY SYSTEM: Unlabored breathing , decreased breath sounds at bases HEART: S1 S2 regular rate and rhythm , ABDOMEN: Soft , no tenderness SKIN: Did have diffuse maculopapular rash no vesicle - Labs CBC & Chem 7: 08/24/24 08:37 08/24/24 08:37 Labs: Abnormal Lab Results - Last 24 Hours (Table) 08/22/24 08/22/24 08/22/24 Range/Units 12:25 17:28 20:16 WBC (4.50-10.00) X 10*3/uL RBC (4.40-5.60) X 10*6/uL MCV (80.0-97.0) FL MCHC (32.0-37.0) g/dL RDW (11.5-14.5) % Plt Count (140-440) X 10*3/uL BUN/Creatinine Ratio (12.00-20.00) Ratio Glucose (70-110) mg/dL POC Glucose (mg/dL) 141 H 241 H 189 H (70-110) mg/dL 08/23/24 08/23/24 08/23/24 Range/Units 04:35 04:35 07:15 WBC 12.02 H (4.50-10.00) X 10*3/uL RBC 4.16 L (4.40-5.60) X 10*6/uL MCV 99.5 H (80.0-97.0) FL MCHC 31.4 L (32.0-37.0) g/dL RDW 14.6 H (11.5-14.5) % Plt Count 469 H (140-440) X 10*3/uL BUN/Creatinine Ratio 20.45 H (12.00-20.00) Ratio Glucose 141 H (70-110) mg/dL POC Glucose (mg/dL) 149 H (70-110) mg/dL 08/23/24 Range/Units 12:16 WBC (4.50-10.00) X 10*3/uL RBC (4.40-5.60) X 10*6/uL MCV (80.0-97.0) FL MCHC (32.0-37.0) g/dL RDW (11.5-14.5) % Plt Count (140-440) X 10*3/uL BUN/Creatinine Ratio (12.00-20.00) Ratio Glucose (70-110) mg/dL POC Glucose (mg/dL) 209 H (70-110) mg/dL Microbiology - Last 24 Hours (Table) 08/17/24 02:15 Anaerobic Culture - Final Thigh - Left Assessment and Plan (1) Abscess of left thigh Current Visit: Yes Status: Acute Code(s): L02.416 - CUTANEOUS ABSCESS OF LEFT LOWER LIMB SNOMED Code(s): 61873807998738459 (2) Lung mass Current Visit: Yes Status: Acute Code(s): R91.8 - OTHER NONSPECIFIC ABNORMAL FINDING OF LUNG FIELD SNOMED Code(s): 446542188 (3) Pneumonia Current Visit: No Status: Acute Code(s): J18.9 - PNEUMONIA, UNSPECIFIED ORGANISM SNOMED Code(s): 611414116 (4) Drug rash Current Visit: Yes Status: Acute Code(s): L27.0 - GEN SKIN ERUPTION DUE TO DRUGS AND MEDS TAKEN INTERNALLY SNOMED Code(s): 01077603 Plan: 1patient presented to hospital with increasing shortness of breath and this patient who did have CT imaging of the chest concerning for a lung mass underlying neoplasm not excluded pneumonia needs to be rule out with a sputum growing Staph aureus which has been finalized with MRSA likely competent of pn eumonia 2left lateral thigh abscess culture coming back with Proteus that is sensitive to cefepime patient on as well as to Cipro and Bactrim DS patient did have CT of the left thigh did not mention any abscess that need to be drained 3patient has developed a maculopapular rash more likely related to beta-lactam than the vancomycin, cefepime has been discontinued and he received a dose of Solu-Medrol, patient continue with Benadryl as needed rash has improved no new rash 4patient will continue with Bactrim DS along with vancomycin for his MRSA pneumonia, white count slightly up today need to be monitored closely Dictation was produced using [employer] dictation software. please excuse any gr ammatical, word or spelling errors. Time with Patient: Less than 30
--- NOTE | 2024-08-24 12:46 | P.PN ---
Subjective Progress Note Date: 08/24/24 Principal diagnosis: Reason for follow-up is MRSA pneumonia left thigh wound cellulitis Patient is a 54-year-old male with a past medical history significant for diabetes mellitus hypertension hyperlipidemia fibromyalgia heart failure atrial fibrillation patient apparently did have a seroma to the left thigh that was drained by Dr. Montano on May 24, 2024 culture at that time did grow Enterococcus faecium, now presented to hospital mostly with increasing shortness of breath did have a CT of the chest with the left lung mass/pneumonia sputum is growing MRSA did have a CT of the left thigh did not mention any drainable abscess culture positive for Proteus. On today's evaluation that is 08/24/2024,the patient remains to be afebrile, patient is on room air not requiring supplemental oxygen and denies any shortness of breath no chest pain and cough is decreased in intensity h.Patient denies having any nausea or vomiting, no abdominal pain did have a bowel movement yesterday. Patient white count is down to 10.8, creatinine 0.86 Objective - Vital Signs Vital signs: Vital Signs Temp 97.7 F 08/24/24 12:27 Pulse 69 08/24/24 12:27 Resp 20 08/24/24 12:27 BP 154/124 08/24/24 12:27 Pulse Ox 95 08/24/24 12:27 FiO2 Intake & Output 08/23/24 08/24/24 08/24/24 18:59 06:59 18:59 Intake Total 1940 100 Balance 1940 100 Intake: IV 100 Intake, IV Titration 1400 Amount Sodium Chloride 0.9% 1, 900 000 ml @ 100 mls/hr IV . Q10H [facility] Rx#:[id number] Vancomycin 2,500 mg In 500 Sodium Chloride 0.9% 500 ml 500 ml @ 167 mls/hr IVPB Q12HR [facility] Rx#: [id number] Oral 540 Other: Voiding Method Toilet Toilet Urinal Urinal # Voids 2 - Exam GENERAL DESCRIPTION: Middle-age male lying in bed in no distress RESPIRATORY SYSTEM: Unlabored breathing , decreased breath sounds at bases HEART: S1 S2 regular rate and rhythm , ABDOMEN: Soft , no tenderness SKIN: Did have diffuse maculopapular rash no vesicle - Labs CBC & Chem 7: 08/24/24 08:37 08/24/24 08:37 Labs: Abnormal Lab Results - Last 24 Hours (Table) 08/23/24 08/23/24 08/24/24 Range/Units 16:49 19:54 07:39 WBC (3.8-10.6) k/uL RBC (4.30-5.90) m/uL Sodium (137-145) mmol/L Glucose (74-99) mg/dL POC Glucose (mg/dL) 121 H 154 H 132 H (70-110) mg/dL 08/24/24 08/24/24 08/24/24 Range/Units 08:37 08:37 12:30 WBC 10.9 H (3.8-10.6) k/uL RBC 4.29 L (4.30-5.90) m/uL Sodium 136 L (137-145) mmol/L Glucose 119 H (74-99) mg/dL POC Glucose (mg/dL) 114 H (70-110) mg/dL Assessment and Plan (1) Abscess of left thigh Current Visit: Yes Status: Acute Code(s): L02.416 - CUTANEOUS ABSCESS OF LEFT LOWER LIMB SNOMED Code(s): 79506877639911282 (2) Lung mass Current Visit: Yes Status: Acute Code(s): R91.8 - OTHER NONSPECIFIC ABNORMAL FINDING OF LUNG FIELD SNOMED Code(s): 322956441 (3) Pneumonia Current Visit: No Status: Acute Code(s): J18.9 - PNEUMONIA, UNSPECIFIED ORGANISM SNOMED Code(s): 172686211 (4) Drug rash Current Visit: Yes Status: Acute Code(s): L27.0 - GEN SKIN ERUPTION DUE TO DRUGS AND MEDS TAKEN INTERNALLY SNOMED Code(s): 41391825 Plan: 1patient presented to hospital with increasing shortness of breath and this patient who did have CT imaging of the chest concerning for a lung mass underlying neoplasm not excluded pneumonia needs to be rule out with a sputum growing Staph aureus which has been finalized with MRSA likely competent of pneumonia 2left lateral thigh abscess culture coming back with Proteus that is sensitive to cefepime patient on as well as to Cipro and Bactrim DS patient did have CT of the left thigh did not mention any abscess that need to be drained 3patient has developed a maculopapular rash more likely related to beta-lactam than the vancomycin, cefepime has been discontinued and he received a dose of Solu-Medrol, patient continue with Benadryl as needed rash has improved no new rash 4patient currently being treated with Bactrim DS along with vancomycin for his MRSA pneumonia, white count is trending down apparently waiting for bronchoscopy and biopsy we will wait for the results Dictation was produced using [employer] dictation software. please excuse any grammatical, word or spelling errors. Time with Patient: Less than 30
--- NOTE | 2024-08-24 12:58 | P.PN ---
Subjective Progress Note Date: 08/24/24 Patient is a 54-year-old male with past medical history significant for left- sided empyema status post thoracotomy and lung decortication, atrial fibrillation, heart failure, diabetes mellitus, hyperlipidemia, hypertension, left thigh abscess, multiple orthopedic surgeries, COPD, and heavy previous tobacco use. Back in 2017, patient had a complicated pneumonia developing a parapneumonic effusion/empyema, and did undergo left thoracotomy with complete decortication of the left lung and cryoablation of intercostal nerves 5 through 8. More recently patient was admitted back in July, with heart failure and A-fib RVR. On August 12, he did undergo FRANSISCA with cardioversion and successful conversion to normal sinus rhythm. Patient was ultimately discharged home on August 13. He returns to the emergency department yesterday afternoon complaining of shortness of breath. He states that the shortness of breath has been ongoing actually for a couple months. Worse over the last day or so. He has had associated cough with copious green sputum production. He states that his back pain on the left with coughing and deep breathing. Denies any measured fevers, does report occasional chills. No anterior chest pain or hemoptysis. Chest x-ray showed a suspicious masslike opacity projecting over the spine in the lateral view. New from prior recent chest x-ray done 08/04/24. The concern is for pneumonia. Chest CTA was performed down in the ER, showing a large masslike consolidation in the posterior left lung base. Measuring 9 x 7 cm. There was an adjacent pleural-based mass measuring 2.1 cm. Does admit 20 lb weight loss within last month. Denies personal history of malignancy. CBC: WBC count 13.9, hemoglobin 14.8, hematocrit 46.2, platelets 538. Sodium 136, potassium 4.8, chloride 104, serum bicarb 24, BUN 13, creatinine 0.75, glucose 186. Lactic 2. LFTs unremarkable. Troponin less than 0.012. NT proBNP 193. I am evaluating this patient on the general medical floor. He is sitting up in bed on room air. SpO2 96% . No measured fevers. Nontoxic appearance. There is large amount of green purulent sputum in bedside collection basin. He does have a left thigh wound and states that he previously had I&D of an abscess in May of the year. Over the last couple weeks, the area has started to become hard and painful again and had purulent drainage. The patient is seen today August 18, 2024 in follow-up on the regular medical floor. He is currently resting comfortably in bed. Awake and alert in no acute distress. He is maintaining good O2 saturations in the mid 90s on room air. He is afebrile. Hemodynamically stable. Sputum culture showing presumptive Staph aureus. Left thigh wound cultures showing Proteus vulgaris group. Blood culture pending. White count 13.6. Hemoglobin 13.5. Platelets 537. Sodium 139. Potassium 5.0. Bicarb 27. BUN 17. Creatinine 1.2. Glucose 133. He remains on bronchodilators. Antibiotics in the form of Zosyn. Remains on oral diuretics. Anticoagulated with Eliquis. The patient is seen today August 19, 2024 in follow-up on the regular medical floor. He is currently sitting up in bed. Awake and alert in no acute distress. Denies any worsening shortness of breath, cough or congestion. He states he is feeling better today compared to yesterday. Continues to maintain good O2 saturations in the 90s on room air. He is afebrile. Hemodynamically stable. Wound culture positive for Proteus vulgaris. Sputum culture positive for MRSA. White count 12.1. Hemoglobin 13.8. Platelets 541. Sodium 139. Potassium 5.0. Bicarb 25. BUN 18. Creatinine 1.0. Glucose 132. He remains on bronchodilators. Remains on cefepime and vancomycin. The patient is seen today August 20, 2024 in follow-up on the regular medical floor. He is currently resting comfortably in bed. Awake and alert in no acute distress. Continues to maintain good O2 saturations in the 90s on room air. He is continued on Symbicort, DuoNeb and elations. Antibiotics in the form of vancomycin and Bactrim. He remains on oral diuretics. Anticoagulated with Eliquis. Continued on Levemir and NovoLog sliding scale. CT scan of the left lower extremity revealed a small focal area of increased density in the subcutaneous soft tissues extending to the dermis in the lateral left thigh consistent with a small focal area of inflammation or possibly ulcer. No underlying abscess or discrete fluid collection noted. Wound culture was positive for Proteus vulgaris group. Sputum cultures positive for MRSA. White count 10.8. Hemoglobin 13.7. Platelets 532. Sodium 138. Potassium 4.7. Bicarb 24. BUN 22. Creatinine 1.2. Glucose 137. The patient is seen today August 21, 2024 in follow-up on the regular medical floor. He is awake and alert in no acute distress. Resting comfortably in bed. Maintaining O2 saturations in the 90s on room air. He has been afebrile. Hemodynamically stable. Chest x-ray shows left lung consolidation felt to represent airspace consolidation and less likely mass per radiology. Evidence of COPD changes. Culture positive for MRSA. Left thigh culture positive for Proteus vulgaris group. White count 16.9. Hemoglobin 13.5. Platelets 565. Sodium 133. Potassium 5.8. Bicarb 24. BUN 29. Creatinine 1.3. Glucose 300. The patient is seen today August 22, 2024 in follow-up on the regular medical floor. He is sitting up in bed. Awake and alert in no acute distress. M aintaining good O2 saturations in the mid 90s on room air. He has been afebrile. Hemodynamically stable. Denies any worsening shortness of breath, cough or congestion. He states he is coughing up black thick sputum. Sputum is positive for MRSA. Wound culture positive for Proteus vulgaris group. White count 9.2. Hemoglobin 13.4. Platelets 45. Sodium 136. Potassium 5.1. Bicarb 24. BUN 28. Creatinine 1.2. Glucose 220. He is anticoagulated with Eliquis. Continued on DuoNeb inhalations and Symbicort, antibiotics in the form of vancomycin The patient is seen today August 23, 2024 in follow-up on the regular medical floor. He is resting comfortably in bed. Awake and alert in no acute distress. Continues to maintain good O2 saturations in the mid 90s on room air. He has been afebrile. Hemodynamically stable. Breathing easier today compared to yesterday. Left thigh culture positive for Proteus vulgaris. Sputum culture positive for MRSA.. Hemoglobin 13.0. Platelets 469. Sodium 140. Potassium 4.8. Bicarb 27. BUN 23. Creatinine 1.1. Glucose 141. Vancomycin. Continued on DuoNeb and elations, Symbicort. Eliquis on hold. The patient is seen today August 24, 2024 in follow-up on the regular medical floor. He is awake and alert in no acute distress. Denies any worsening shortness of breath, cough or congestion. He continues to maintain good O2 saturations in the 90s on room air. He remains on DuoNeb and elations, Symbicort. Antibiotics in the form of vancomycin. White count 10.9. Hemoglobin 13.2. Platelets 447. Sodium 136. Potassium 4.4. Bicarb 30. BUN 17. Creatinine 0.86. Vancomycin trough 18.9. Plan is for bronchoscopy with BAL and brushings today. Objective - Vital Signs Vital signs: Vital Signs Temp 97.7 F 08/24/24 12:27 Pulse 69 08/24/24 12:27 Resp 20 08/24/24 12:27 BP 154/124 08/24/24 12:27 Pulse Ox 95 08/24/24 12:27 FiO2 Intake & Output 08/23/24 08/24/24 08/24/24 18:59 06:59 18:59 Intake Total 1940 100 Balance 1940 100 Intake: IV 100 Intake, IV Titration 1400 Amount Sodium Chloride 0.9% 1, 900 000 ml @ 100 mls/hr IV . Q10H [facility] Rx#:[id number] Vancomycin 2,500 mg In 500 Sodium Chloride 0.9% 500 ml 500 ml @ 167 mls/hr IVPB Q12HR U[facility] Rx#: [id number] Oral 540 Other: Voiding Method Toilet Toilet Urinal Urinal # Voids 2 - Exam GENERAL EXAM: Alert, pleasant 54-year-old obese male, resting comfortably in bed, on room air, in no apparent distress. HEAD: Normocephalic and atraumatic EYES: Normal reaction of pupils, equal size. NOSE: Clear with pink turbinates. THROAT: No erythema or exudates. NECK: No masses, no JVD. CHEST: No chest wall deformity. Remote appearing healed thoracotomy incision left posterior back LUNGS: Equal air entry with focal dullness of the posterior left lower lobe with inspiratory crackles. No wheezes or rhonchi. CVS: S1 and S2 normal with no audible murmur, regular rhythm. No extra heart sounds ABDOMEN: No hepatosplenomegaly, active bowel sounds, no guarding or rigidity. SPINE: No scoliosis or deformity SKIN: No rashes. Left thigh wound with surrounding induration and erythema CENTRAL NERVOUS SYSTEM: No focal deficits, tone is normal in all 4 extremities. EXTREMITIES: There is bilateral lower extremity mild nonpitting edema. No clubbing, or cyanosis. Peripheral pulses are intact. - Labs CBC & Chem 7: 08/24/24 08:37 08/24/24 08:37 Labs: Abnormal Lab Results - Last 24 Hours (Table) 08/23/24 08/23/24 08/24/24 Range/Units 16:49 19:54 07:39 WBC (3.8-10.6) k/uL RBC (4.30-5.90) m/uL Sodium (137-145) mmol/L Glucose (74-99) mg/dL POC Glucose (mg/dL) 121 H 154 H 132 H (70-110) mg/dL 08/24/24 08/24/24 08/24/24 Range/Units 08:37 08:37 12:30 WBC 10.9 H (3.8-10.6) k/uL RBC 4.29 L (4.30-5.90) m/uL Sodium 136 L (137-145) mmol/L Glucose 119 H (74-99) mg/dL POC Glucose (mg/dL) 114 H (70-110) mg/dL Assessment and Plan Assessment: Suspect left lower lobe pneumonia, HCAP, chest x-ray done on admission showing a new airspace retrocardiac opacity when compared to recent chest x-ray done on 08/04/2024. Better visualized on lateral view. A follow-up chest CT demonstrated a large masslike consolidation measuring 9 x 7 cm within the posterior left lung base with adjacent pleural base nodular opacity measuring 2.1 cm. Sputum culture positive for MRSA. Remains on vancomycin Acute dyspnea, secondary to above, stable and on room air Left thigh abscess status post I&D, patient is reporting increased pain, induration, and drainage. Cultures revealing Proteus vulgaris group Acute leukocytosis History of complicated left lung pneumonia with development of empyema, status post left thoracotomy and complete lung decortication in 2018 Chronic obstructive pulmonary disease, inactive Former tobacco dependence, with over [id number] history Hypertension Hyperlipidemia Diabetes mellitus type 2 History of heart failure with mildly reduced ejection fraction of 45 to 50%, moderate mitral and tricuspid regurgitation, patent PFO History of atrial fibrillation status post FRANSISCA/cardioversion, currently normal sinus rhythm Morbid obesity, with a BMI of 42.6 kg/m Plan: The patient was seen and evaluated Labs and medications reviewed Stable and on room air Remains on vancomycin per ID service Plan is for bronchoscopy today Eliquis can be resumed after the bronchoscopy Could be discharged home later today if tolerates the procedure well Follow-up in our office in [address] Gauthier This patient was seen independently by the pulmonary nurse practitioner addressing pulmonary issues I have personally seen and examined the patient, performed the documentation and the assessment and plan as written. Number of minutes spent on the visit: 24 Dictation was produced using [employer] dictation software. Please excuse any grammatical, word or spelling errors.
--- NOTE | 2024-08-24 13:51 | P.PN ---
Subjective Progress Note Date: 08/24/24 SURGICAL PROGRESS NOTE CHIEF COMPLAINT: Shortness of breath HISTORY OF PRESENT ILLNESS: Surgical service following in regards to left thigh lateral skin lesion. There is no drainable abscess noted on CAT scan. No new complaints. Had bronchoscopy today. wbc donw from 12 to 10.9 PHYSICAL EXAM: VITAL SIGNS: Reviewed. GENERAL: Well-developed in no acute distress. Abdomen: Soft Extremities: Left thigh lateral skin lesion. Nontender with palpation. No drainage noted at this time. No erythema. ASSESSMENT: 1. Left thigh skin lesion appears stable PLAN: -Patient be followed as outpatient for excision of the diseased area of skin Physician Supervisor Data Processing note has been reviewed by physician. Signing provider agrees with the documented findings, assessment, and plan of care. Objective - Vital Signs Vital signs: Vital Signs Temp 97.7 F 08/24/24 12:27 Pulse 69 08/24/24 12:27 Resp 20 08/24/24 12:27 BP 154/124 08/24/24 12:27 Pulse Ox 95 08/24/24 12:27 FiO2 Intake & Output 08/23/24 08/24/24 08/24/24 18:59 06:59 18:59 Intake Total 1940 100 Balance 1940 100 Intake: IV 100 Intake, IV Titration 1400 Amount Sodium Chloride 0.9% 1, 900 000 ml @ 100 mls/hr IV . Q10H [facility] Rx#:[id number] Vancomycin 2,500 mg In 500 Sodium Chloride 0.9% 500 ml 500 ml @ 167 mls/hr IVPB Q12HR [facility] Rx#: [id number] Oral 540 Other: Voiding Method Toilet Toilet Urinal Urinal # Voids 2 - Labs CBC & Chem 7: 08/24/24 08:37 08/24/24 08:37 Labs: Abnormal Lab Results - Last 24 Hours (Table) 08/23/24 08/23/24 08/24/24 Range/Units 16:49 19:54 07:39 WBC (3.8-10.6) k/uL RBC (4.30-5.90) m/uL Sodium (137-145) mmol/L Glucose (74-99) mg/dL POC Glucose (mg/dL) 121 H 154 H 132 H (70-110) mg/dL 12/12/24 12/12/24 12/12/24 Range/Units 08:37 08:37 12:30 WBC 10.9 H (3.8-10.6) k/uL RBC 4.29 L (4.30-5.90) m/uL Sodium 136 L (137-145) mmol/L Glucose 119 H (74-99) mg/dL POC Glucose (mg/dL) 114 H (70-110) mg/dL
--- NOTE | 2024-08-24 15:48 | P.DS ---
Providers Date of admission: 08/18/24 15:26 Expected date of discharge: 08/24/24 Attending physician: Mary Murray Consults: 08/16/24 16:45 Consult Physician Urgent Consulting Provider: Nilo Gauthier Consult Reason/Comments: Lung mass Do you want consulting provider notified?: Yes 08/18/24 11:27 Consult Physician Routine Consulting Provider: Mohsen Champagne Consult Reason/Comments: left thigh fluid collection Do you want consulting provider notified?: Yes 08/18/24 11:28 Consult Physician Routine Consulting Provider: Cody Montano Consult Reason/Comments: L. thigh abscess Do you want consulting provider notified?: Yes Primary care physician: Patric Granda [facility] Course: Discharge diagnoses; - Left lower lobe pneumonia MRSA infection Chronic constipation - Shortness of breath secondary to pneumonia, resolved - COPD without any significant acute exacerbation - Left thigh abscess Drug reaction likely due to beta-lactam Hyperkalemia, resolved Hyponatremia, resolved -Type 2 diabetes mellitus -Hypertension -Hyperlipidemia -Congestive heart failure chronic systolic function -Obesity Hospital course; Patient is discharged to home in STABLE condition. Patient is discharged on new medication Bactrim DS 800-160 mg twice daily and doxycycline 100 mg twice daily to be taken for 2 weeks. He is to resume his home medications. He is to follow-up with his PCP and staff climate scientist. HPI 54-year-old male came in with complaints of shortness of breath and chest pain which is pleuritic in nature patient had a CT of the chest which showed infiltrate which has masslike contour patient was here in month of July with cough and green sputum production at the time patient was treated for pneumonia patient has slightly elevated white count BNP within normal limits no lactic acidosis. Patient also has wound on the left thigh which is mostly healed and likely scar although it was draining because of which ultrasound was obtained which showed fluid collection but clinically does not appear to be abscess although cultures were obtained from this location. During hospital stay patient was treated for left lower lung pneumonia, MRSA infection, and left lateral thigh abscess. He was given course of antibiotics while inpatient. He did have allergic reaction to antibiotics likely due to beta-lactam. He was evaluated by surgery who felt he did not need surgical intervention for abscess. He was also followed by pulmonology and infectious disease for treatment of pneumonia and MRSA. CT of chest with large masslike consolidation 9X 7 cm in posterior left lung base suspected more inflammatory versus infective cause. He also underwent bronchoscopy and will need to follow- up with pulmonology. PHYSICAL EXAMINATION: GENERAL: The patient is alert and oriented x3, not in any acute distress. Well developed, well nourished. Obese HEENT: Pupils are round and equally reacting to light. EOMI. No scleral icterus. No conjunctival pallor. Normocephalic, atraumatic. No pharyngeal erythema. No thyromegaly. CARDIOVASCULAR: S1 and S2 present. No murmurs, rubs, or gallops. PULMONARY: Chest is clear to auscultation, no wheezing or crackles. ABDOMEN: Soft, nontender, nondistended, normoactive bowel sounds. No palpable organomegaly. MUSCULOSKELETAL: No joint swelling or deformity. EXTREMITIES: No cyanosis, clubbing, or pedal edema. NEUROLOGICAL: Gross neurological examination did not reveal any focal deficits. SKIN: Wound on the left lateral side of the thigh as mentioned above, maculopapular rash throughout body Dictation was produced using [employer] dictation software. please excuse any grammatical, word or spelling errors. Patient Condition at Discharge: Stable Plan - Discharge Summary Discharge Rx Participant: No New Discharge Prescriptions: New Sulfamethox-Tmp 800-160Mg [Bactrim DS 800-160 mg] 1 each PO BID #28 tab Doxycycline [Vibramycin] 100 mg PO BID 14 Days #28 capsule Continue Albuterol Sulfate [Albuterol Sulfate Hfa] 2 puff INHALATION RT-Q6H DULoxetine HCL [Cymbalta] 30 mg PO BID oxyCODONE HCL/ACETAMINOPHEN [Percocet 10-325 mg] 1 tab PO QID PRN PRN Reason: Pain Pregabalin [Lyrica] 200 mg PO TID Fluticasone/Umeclidin/Vilanter [Trelegy Ellipta 100-62.5-25] 1 puff IN HALATION RT-DAILY Milnacipran HCl [Savella] 100 mg PO DAILY Insulin Detemir (Levemir) [Levemir] 20 unit SQ BID Loratadine [Claritin] 10 mg PO DAILY Amitriptyline HCl [Elavil] 50 - 100 mg PO HS INSULIN ASPART (NovoLOG) [NovoLOG (formulary)] 5 unit SQ TID-W/MEALS Pramipexole Di-HCl [Mirapex] 0.75 mg PO HS traZODone HCL 150 mg PO HS Amiodarone [Cordarone] 200 mg PO DAILY #30 tab Furosemide [Lasix] 40 mg PO BID #60 tablet Metoprolol Tartrate [Lopressor] 75 mg PO DIRECTED tiZANidine [Zanaflex] 6 mg PO TID PRN PRN Reason: Muscle Spasm Naproxen [Naprosyn] 500 mg PO BID oxyCODONE ER [OxyCONTIN] 10 mg PO Q12HR Aspirin 81 mg PO DAILY #30 tab Apixaban [Eliquis] 5 mg PO BID #60 tab Dapagliflozin Propanediol [Farxiga] 10 mg PO DAILY #30 tablet Atorvastatin [Lipitor] 40 mg PO HS #30 tablet Discharge Medication List Albuterol Sulfate [Albuterol Sulfate Hfa] 2 puff INHALATION RT-Q6H 06/05/20 [History] DULoxetine HCL [Cymbalta] 30 mg PO BID 06/05/20 [History] Pregabalin [Lyrica] 200 mg PO TID 06/05/20 [History] oxyCODONE HCL/ACETAMINOPHEN [Percocet 10-325 mg] 1 tab PO QID PRN 06/05/20 [History] Fluticasone/Umeclidin/Vilanter [Trelegy Ellipta 100-62.5-25] 1 puff INHALATION RT-DAILY 04/05/22 [History] Milnacipran HCl [Savella] 100 mg PO DAILY 04/05/22 [History] Naproxen [Naprosyn] 500 mg PO BID 04/05/22 [History] tiZANidine [Zanaflex] 6 mg PO TID PRN 04/05/22 [History] Amitriptyline HCl [Elavil] 50 - 100 mg PO HS 02/25/24 [History] INSULIN ASPART (NovoLOG) [NovoLOG (formulary)] 5 unit SQ TID-W/MEALS 02/25/24 [History] Insulin Detemir (Levemir) [Levemir] 20 unit SQ BID 02/25/24 [History] Loratadine [Claritin] 10 mg PO DAILY 02/25/24 [History] Pramipexole Di-HCl [Mirapex] 0.75 mg PO HS 02/25/24 [History] oxyCODONE ER [OxyCONTIN] 10 mg PO Q12HR 02/25/24 [History] traZODone HCL 150 mg PO HS 08/04/24 [History] Amiodarone [Cordarone] 200 mg PO DAILY #30 tab 08/13/24 [Rx] Apixaban [Eliquis] 5 mg PO BID #60 tab 08/13/24 [Rx] Aspirin 81 mg PO DAILY #30 tab 08/13/24 [Rx] Atorvastatin [Lipitor] 40 mg PO HS #30 tablet 08/13/24 [Rx] Dapagliflozin Propanediol [Farxiga] 10 mg PO DAILY #30 tablet 08/13/24 [Rx] Furosemide [Lasix] 40 mg PO BID #60 tablet 08/13/24 [Rx] Metoprolol Tartrate [Lopressor] 75 mg PO DIRECTED 08/16/24 [History] Doxycycline [Vibramycin] 100 mg PO BID 14 Days #28 capsule 08/24/24 [Rx] Sulfamethox-Tmp 800-160Mg [Bactrim DS 800-160 mg] 1 each PO BID #28 tab 08/24/24 [Rx] Follow up Appointment(s)/Referral(s): Nilo Gauthier MD [STAFF PHYSICIAN] - 1 Week [facility], [NON-STAFF] - 1-2 Days Patric Granda DO [Primary Care Provider] - 1-2 days Discharge Disposition: HOME SELF-CARE
--- NOTE | 2024-08-24 19:13 | OP ---
OPERATIVE REPORT DATE OF SERVICE : PROCEDURE: Bronchoscopy airway examination, therapeutic lavage, BAL left lower lobe, brushes left lower. PREOPERATIVE DIAGNOSIS: Pneumonia versus mass. POSTOPERATIVE DIAGNOSIS: Pneumonia versus mass. DESCRIPTION OF PROCEDURE: Anesthesia provided monitored anesthesia care. The patient's procedure took place in room #1 [facility]. SUPERINTENDENT STATIONS: Adilene Hsu. PROCEDURE IN DETAIL: There was informed consent and universal timeout. After the patient was adequately sedated and being fully monitored, the bronchoscope was inserted through the right nostril. It passed through the right nasopharynx into the oropharynx. The hypopharynx was identified and topicalized. There were some thick secretions noted in the hypopharynx. Picture was taken. The glottic opening appeared normal. It was topicalized with lidocaine. The hypopharyngeal structures including anterior commissure, true cords, false cords, arytenoids, piriform sinuses, right and left, vallecula, and epiglottis all appeared normal. The bronchoscope was pushed through the glottic opening into the trachea. Trachea appeared relatively normal although it did have a saber-sheath appearance. Tracheal torsten was sharp. The right and left mainstem were topicalized. The right upper lobe and its 3 segments, the right middle lobe and its 2 segments, the right lower lobe and its 5 segments, the left upper lobe proper and its 2 segments, the lingula and its 2 segments, and the left lower lobe and its 4 segments all had similar findings of diffuse airway, erythema, and hyperemia. There was some mucosal friability. There was no dominant mass or tumor. There were secretions noted throughout. They were purulent looking. The bronchoscope was then wedged into the left lower lobe. Brushes were done in the left lower lobe. After that, a formal BAL took place, 30 mL of turbid fluid was recovered. The patient tolerated the procedure well. There was no significant bleeding. No biopsies were done. The patient tolerated the procedure well. The bronchoscope was withdrawn and the patient will be recovered. MMODL / IJN: [id number] /
[2024-08-25 04:52] LABS: Appearance,BF Clumped (Clear); RBC, Body Fluid 26600 /UL (0-2000)
[2024-08-25 09:33] LABS: Nucleated Cells, Body Fluid 6950 /UL
--- NOTE | 2024-08-25 20:01 | CDI ---
Documentation Clarification Form Date: 08/25/2024 07:49:32 PM From: Helen Holliday Phone: Admit Date: 08/18/2024 03:26:00 PM Patient Name: Javi Costa Visit Number: [id number] Discharge Date: 08/24/2024 03:33:00 PM ATTENTION: The Clinical Documentation Specialists (CDI) and [facility] Coding Staff appreciate your assistance in clarifying documentation. Please respond to the clarification below the line at the bottom and electronically sign. The CDI & [facility] Coding staff will review the response and follow-up if needed. Please note: Queries are made part of the Legal Health Record. If you have any questions, please contact the author of this message via ITS. Doctor/Provider: Jazz Oliva Your patient has an abnormal lab value: glucose 224. Please clarify if there is an additional diagnosis and/or clinical significance related to this value. History/Risk Factors: 54yo M, LLL MRSA PNA, chronicconstipation,COPD, left thigh abscess, drug reactionlikely due to betalactam, hyperkalemia,hyponatremia,DMII, HTN, HLD, CSHF, obesity Clinical indicators: Glucose: 08/16 186 08/17 126-224 08/18 130- 178 08/19 132-183 A1C in July of this year was 6.5 Home Medication: Dapagliflozin Propanediol [Farxiga] 10 mg PO DAILY; Insulin Detemir [Levemir] 20 unit SQ BID; Insulin Aspart [NovoLOG 5 unit SQ TID-W/MEALS Treatment: sliding scale insulin Is there an additional diagnosis and/or clinical significance related to the above lab result/information? [ x] Type 2 diabetes mellitus with hyperglycemia [ ] Hyperglycemia due to steroids [ ] No additional diagnosis/Not clinically significant [ ] Other, please specify [ ] Unable to determine (Template Last Revised: October 2020) MTDD
== END 2024-08-24 15:33 | disposition home or self-care (01) | DRG 137 ==
LOC: EC 11:58 → 5NMEDONC 16:51 → OBSVTOIN 08-18 15:26 → 5NMEDONC 08-23 01:19
PROVIDERS: ADMIT Internal Medicine; ATTEND Internal Medicine
PROC: 0B9J8ZX Drainage of Left Lower Lung Lobe, Via Natural or Artificial Opening Endoscopic, Diagnostic (ICD-10-PCS; principal; 2024-08-24 11:30)
PROC: 0BDB8ZX Extraction of Left Lower Lobe Bronchus, Via Natural or Artificial Opening Endoscopic, Diagnostic (ICD-10-PCS; 2024-08-24 11:30)
DX: J15.212 Pneumonia due to Methicillin resistant Staphylococcus aureus (principal); I11.0 Hypertensive heart disease with heart failure; I50.22 Chronic systolic (congestive) heart failure; E11.42 Type 2 diabetes mellitus with diabetic polyneuropathy; J44.0 Chronic obstructive pulmonary disease with (acute) lower respiratory infection; E11.65 Type 2 diabetes mellitus with hyperglycemia; E66.01 Morbid (severe) obesity due to excess calories; Z68.41 Body mass index [BMI] 40.0-44.9, adult; I48.91 Unspecified atrial fibrillation; Z79.4 Long term (current) use of insulin; E87.1 Hypo-osmolality and hyponatremia; L02.416 Cutaneous abscess of left lower limb; L03.116 Cellulitis of left lower limb; Q21.12 Patent foramen ovale; I95.9 Hypotension, unspecified; R63.4 Abnormal weight loss; I08.1 Rheumatic disorders of both mitral and tricuspid valves; K59.09 Other constipation; E78.5 Hyperlipidemia, unspecified; B96.4 Proteus (mirabilis) (morganii) as the cause of diseases classified elsewhere; E87.5 Hyperkalemia; L27.0 Generalized skin eruption due to drugs and medicaments taken internally; T36.95XA Adverse effect of unspecified systemic antibiotic, initial encounter; Z79.891 Long term (current) use of opiate analgesic; Z79.01 Long term (current) use of anticoagulants; F41.9 Anxiety disorder, unspecified; G89.29 Other chronic pain; Z96.651 Presence of right artificial knee joint; Z96.641 Presence of right artificial hip joint; Z87.891 Personal history of nicotine dependence; Z79.899 Other long term (current) drug therapy; Z79.51 Long term (current) use of inhaled steroids; Z79.1 Long term (current) use of non-steroidal anti-inflammatories (NSAID); Z79.82 Long term (current) use of aspirin; Z79.84 Long term (current) use of oral hypoglycemic drugs; Z98.1 Arthrodesis status; Z89.022 Acquired absence of left finger(s); Z89.021 Acquired absence of right finger(s)
CPT/HCPCS: 31623; 31624; 36415; 71046; 71275; 80048; 80053; 80202; 83605; 83735; 83880; 84145; 84484; 85025; 85027; 85610; 85730; 87040; 87070; 87075; 87077; 87102; 87116; 87186; 87205; 87206; 88104; 88108; 88305; 89050; 93005; 94640; 99285

== ENCOUNTER 2024-09-17 11:36 | Emergency (ER) | payer OTHER ==
[2024-09-17] MEDS: HYDROmorphone 0.5 MG/0.5 ML SYRINGE IVP STA ×3 (12:30→15:52)
[2024-09-17 12:33] LABS: Basophils % (A) 0 %; Eosinophils # (A) 0.2 k/uL (0-0.7); Eosinophils % (A) 2 %; HCT 46.1 % (39.0-53.0); HGB 15.3 gm/dL (13.0-17.5); Lymphocytes # (A) 2.3 k/uL (1.0-4.8); Lymphocytes % (A) 20 %; MCH 31.9 pg (25.0-35.0); MCHC 33.3 g/dL (31.0-37.0); MCV 95.9 fL (80.0-100.0); Mean Platelet Volume 8.3; Monocytes # (A) 0.3 k/uL (0-1.0); Monocytes % (A) 3 %; Neutrophils # (A) 8.5 k/uL (1.3-7.7); Neutrophils % (A) 74 %; Platelet Count 321 k/uL (150-450); RBC 4.81 m/uL (4.30-5.90); RDW 15.5 % (11.5-15.5); WBC 11.5 k/uL (3.8-10.6)
--- NOTE | 2024-09-17 12:52 | ED ---
General Adult HPI - General Chief complaint: Extremity Problem,Nontraumatic Stated complaint: PAIN LOWER EXTREM Time Seen by Provider: 09/17/24 11:50 Source: patient, RN notes reviewed, old records reviewed Mode of arrival: wheelchair Limitations: no limitations - History of Present Illness Initial comments: This is a 54-year-old male presents emergency department complaining that 4 months ago he had surgery on his thigh for hematoma/abscess. Patient states that the pain there is bad again he thinks it may be another abscess. Patient's pain radiates down his whole leg. Patient denies any fever chills. Patient states she has had some back pain as well which is chronic. Patient denies any new injury or trauma. Patient denies any abdominal pain patient is chest pain difficult breathing shortness of breath. Patient states the pain is thigh radiates from the back into the hip into the thigh down the leg both the front and the back. - Related Data Home Medications Medication Instructions Recorded Confirmed Albuterol Sulfate [Albuterol 2 puff INHALATION RT-Q6H 06/05/20 08/16/24 Sulfate Hfa] DULoxetine HCL [Cymbalta] 30 mg PO BID 06/05/20 08/16/24 Pregabalin [Lyrica] 200 mg PO TID 06/05/20 08/16/24 oxyCODONE HCL/ACETAMINOPHEN 1 tab PO QID PRN 06/05/20 08/16/24 [Percocet 10-325 mg] Fluticasone/Umeclidin/Vilanter 1 puff INHALATION RT-DAILY 04/05/22 08/16/24 [Trelegy Ellipta 100-62.5-25] Milnacipran HCl [Savella] 100 mg PO DAILY 04/05/22 08/16/24 Naproxen [Naprosyn] 500 mg PO BID 04/05/22 08/16/24 tiZANidine [Zanaflex] 6 mg PO TID PRN 04/05/22 08/16/24 Amitriptyline HCl [Elavil] 50 - 100 mg PO HS 02/25/24 08/16/24 INSULIN ASPART (NovoLOG) [NovoLOG 5 unit SQ TID-W/MEALS 02/25/24 08/16/24 (formulary)] Insulin Detemir (Levemir) [Levemir] 20 unit SQ BID 02/25/24 08/16/24 Loratadine [Claritin] 10 mg PO DAILY 02/25/24 08/16/24 Pramipexole Di-HCl [Mirapex] 0.75 mg PO HS 02/25/24 08/16/24 oxyCODONE ER [OxyCONTIN] 10 mg PO Q12HR 02/25/24 08/16/24 traZODone HCL 150 mg PO HS 08/04/24 08/16/24 Metoprolol Tartrate [Lopressor] 75 mg PO DIRECTED 08/16/24 08/16/24 Previous Rx's Medication Instructions Recorded Amiodarone [Cordarone] 200 mg PO DAILY #30 tab 08/13/24 Apixaban [Eliquis] 5 mg PO BID #60 tab 08/13/24 Aspirin 81 mg PO DAILY #30 tab 08/13/24 Atorvastatin [Lipitor] 40 mg PO HS #30 tablet 08/13/24 Dapagliflozin Propanediol [Farxiga] 10 mg PO DAILY #30 tablet 08/13/24 Furosemide [Lasix] 40 mg PO BID #60 tablet 08/13/24 Doxycycline [Vibramycin] 100 mg PO BID 14 Days #28 capsule 08/24/24 Sulfamethox-Tmp 800-160Mg [Bactrim 1 each PO BID #28 tab 08/24/24 DS 800-160 mg] predniSONE [Deltasone] 40 mg PO DAILY #8 tab 09/17/24 Allergies Allergy/AdvReac Type Severity Reaction Status Date / Time No Known Allergies Allergy Verified 09/17/24 11:42 Review of Systems ROS Statement: Those systems with pertinent positive or pertinent negative responses have been documented in the HPI. ROS Other: All systems not noted in ROS Statement are negative. Past Medical History Past Medical History: Atrial Fibrillation, Chest Pain / Angina, Heart Failure, Diabetes Mellitus, Fibromyalgia, Hyperlipidemia, Hypertension, Pneumonia, Respiratory Disorder Additional Past Medical History / Comment(s): left outer thigh wound mostly h ealed, Left lung pneumonia/empyema, gout, chronic fibromyalgia, chronic lower back pain, degenerative arthritis, history of degenerative disc disease involving the lumbar spine, hypertension, hyperlipidemia, atrial fibrillation as the patient went into atrial fibrillation during her hospitalization for a left lower lobe pneumonia back in October 2017 and subsequently he converted back to normal sinus. He has chronic anxiety. NEUROPATHY History of Any Multi-Drug Resistant Organisms: None Reported Date of last positivie culture/infection: 08/17/24 MDRO Source:: sputum Past Surgical History: Back Surgery, Joint Replacement, Orthopedic Surgery Additional Past Surgical History / Comment(s): rt hip replacement, rt knee replacement, left knee surgery with metal, neck fusion, lower back surgery, traumatic amputation rt index finger, left index finger tip amputation from injury. I & D LT THIGH X 6, LUNG SURGERY, COLONOSCOPY Past Anesthesia/Blood Transfusion Reactions: Blood Transfusion Reaction Additional Past Anesthesia/Blood Transfusion Reaction / Comment(s): pt states some limited neck movement due to previous surgery, " I got degenerative bone disease from a blood transfusion", "I woke up in the middle of knee surgery" Past Psychological History: No Psychological Hx Reported Smoking Status: Former smoker Past Alcohol Use History: Daily Past Drug Use History: None Reported - Past Family History Mother Family Medical History: No Reported History Additional Family Medical History / Comment(s): enlarged heart Father Family Medical History: No Reported History Additional Family Medical History / Comment(s): Father lived to be 101 yrs old. General Exam - General Exam Comments Initial Comments: GENERAL: Patient is well-developed and well-nourished. Patient is nontoxic and well- hydrated and is in mild distress. ENT: Neck is soft and supple. No significant lymphadenopathy is noted. Oropharynx is clear. Moist mucous membranes. Neck has full range of motion without eliciting any pain. EYES: The sclera were anicteric and conjunctiva were pink and moist. Extraocular movements were intact and pupils were equal round and reactive to light. Eyelids were unremarkable. PULMONARY: Unlabored respirations. Good breath sounds bilaterally. No audible rales rhonchi or wheezing was noted. CARDIOVASCULAR: Heart has a regular rate and rhythm ABDOMEN: Soft and nontender with normal bowel sounds. SKIN: Skin is clear with no lesions or rashes and otherwise unremarkable. NEUROLOGIC: Patient is alert and oriented x3. Cranial nerves II through XII are grossly intact. Motor and sensory are also intact. Normal speech, volume and content. Symmetrical smile. MUSCULOSKELETAL: Normal extremities with adequate strength and full range of motion. Patient got no pain over the scar site when I distract him and there is no palpable fluctuant area consistent with an abscess there is no erythema LYMPHATICS: No significant lymphadenopathy is noted PSYCHIATRIC: Normal psychiatric evaluation. Limitations: no limitations Course Vital Signs 09/17/24 09/17/24 09/17/24 11:40 12:25 13:50 Temperature 98.5 F 98.4 F 98.2 F Pulse Rate 85 86 87 Respiratory 18 18 18 Rate Blood Pressure 103/72 128/98 89/51 O2 Sat by Pulse 96 96 97 Oximetry 09/17/24 13:55 Temperature Pulse Rate 67 Respiratory 20 Rate Blood Pressure 94/70 O2 Sat by Pulse 95 Oximetry Medical Decision Making - Medical Decision Making Was pt. sent in by a medical professional or institution (, [facility], [employer], urgent care, hospital, or residential...) When possible be specific @ -No Did you speak to anyone other than the patient for history (EMS, parent, family, police, friend...)? What history was obtained from this source @ -No Did you review nursing and triage notes (agree or disagree)? Why? @ -I reviewed and agree with nursing and triage notes Were old charts reviewed (outside hosp., previous admission, EMS record, old EKG, old radiological studies, urgent care reports/EKG's, residential records)? Report findings @ -No old charts were reviewed Differential Diagnosis? @ -Sciatica, abscess, muscular strain, this is not an all-inclusive list EKG interpreted by me (3pts min.). @ -As above X-rays interpreted by me (1pt min.). @ -X-ray of the hip and pelvis show no acute abnormality CT interpreted by me (1pt min.). @ -None done U/S interpreted by me (1pt. min.). @ -Ultrasound shows no DVT or abscess formation What testing was considered but not performed or refused? (CT, X-rays, U/S, labs)? Why? @ -None What meds were considered but not given or refused? Why? @ -None Did you discuss the management of the patient with other professionals (professionals i.e. [facility] [employer], [employer], lab, RT, psych nurse, social problems specialist, product development, teacher, fire information officer, assistant case manager)? Give summary @ -No Was smoking cessation discussed for >3mins.? @ -No Was critical care preformed (if so, how long)? @ -No Were there social determinants of health that impacted care today? How? (Homelessness, low income, unemployed, alcoholism, drug addiction, transportation, low edu. Level, literacy, decrease access to med. care, fdc, rehab)? @ -No Was there de-escalation of care discussed even if they declined (Discuss DNR or withdrawal of care, Hospice)? DNR status @ -No What co-morbidities impacted this encounter? (DM, HTN, Smoking, COPD, CAD, Cancer, CVA, ARF, Chemo, Hep., AIDS, mental health diagnosis, sleep apnea, morbid obesity)? @ -None Was patient admitted / discharged? Hospital course, mention meds given and route, prescriptions, significant lab abnormalities, going to OR and other pertinent info. @ -Patient received Dilaudid and Toradol while in the emergency department well as Solu-Medrol. Patient stated it did help a little but he is going to follow- up with his neurologist and Dr. Cervantes his back doctor. Undiagnosed new problem with uncertain prognosis? @ -No Drug Therapy requiring intensive monitoring for toxicity (Heparin, Nitro, Insulin, Cardizem)? @ -No Were any procedures done? @ -No Diagnosis/symptom? @ -Sciatic Acute, or Chronic, or Acute on Chronic? @ -Acute Uncomplicated (without systemic symptoms) or Complicated (systemic symptoms)? @ -Complicated Side effects of treatment? @ -No Exacerbation, Progression, or Severe Exacerbation? @ -No Poses a threat to life or bodily function? How? (Chest pain, [place], [place], pneumonia, PE, COPD, DKA, ARF, appy, cholecystitis, CVA, Diverticulitis, Homicidal, Suicidal, threat to staff... and all critical care pts) @ -No - Lab Data Result diagrams: 09/17/24 12:20 09/17/24 12:20 Lab Results 09/17/24 09/17/24 09/17/24 Range/Units 12:20 12:20 12:20 WBC 11.5 H (3.8-10.6) k/uL RBC 4.81 (4.30-5.90) m/uL Hgb 15.3 (13.0-17.5) gm/dL Hct 46.1 (39.0-53.0) % MCV 95.9 (80.0-100.0) fL MCH 31.9 (25.0-35.0) pg MCHC 33.3 (31.0-37.0) g/dL RDW 15.5 (11.5-15.5) % Plt Count 321 (150-450) k/uL MPV 8.3 Neutrophils % 74 % Lymphocytes % 20 % Monocytes % 3 % Eosinophils % 2 % Basophils % 0 % Neutrophils # 8.5 H (1.3-7.7) k/uL Lymphocytes # 2.3 (1.0-4.8) k/uL Monocytes # 0.3 (0-1.0) k/uL Eosinophils # 0.2 (0-0.7) k/uL Basophils # 0.0 (0-0.2) k/uL Sodium 134 L (137-145) mmol/L Potassium 5.6 H (3.5-5.1) mmol/L Chloride 99 (98-107) mmol/L Carbon Dioxide 24 (22-30) mmol/L Anion Gap 11 mmol/L BUN 19 (9-20) mg/dL Creatinine 1.04 (0.66-1.25) mg/dL Est GFR (CKD-EPI)AfAm >90 (>60 ml/min/1.73 sqM) Est GFR (CKD-EPI)NonAf 81 (>60 ml/min/1.73 sqM) Glucose 146 H (74-99) mg/dL Lactic Ac Sepsis Rflx Plasma Lactic Acid Jase 3.4 H* (0.7-2.0) mmol/L Calcium 9.2 (8.4-10.2) mg/dL Total Bilirubin 1.1 (0.2-1.3) mg/dL AST 43 (17-59) U/L ALT 23 (4-49) U/L Alkaline Phosphatase 58 (38-126) U/L Total Protein 7.6 (6.3-8.2) g/dL Albumin 4.4 (3.5-5.0) g/dL 09/17/24 Range/Units 13:15 WBC (3.8-10.6) k/uL RBC (4.30-5.90) m/uL Hgb (13.0-17.5) gm/dL Hct (39.0-53.0) % MCV (80.0-100.0) fL MCH (25.0-35.0) pg MCHC (31.0-37.0) g/dL RDW (11.5-15.5) % Plt Count (150-450) k/uL MPV Neutrophils % % Lymphocytes % % Monocytes % % Eosinophils % % Basophils % % Neutrophils # (1.3-7.7) k/uL Lymphocytes # (1.0-4.8) k/uL Monocytes # (0-1.0) k/uL Eosinophils # (0-0.7) k/uL Basophils # (0-0.2) k/uL Sodium (137-145) mmol/L Potassium (3.5-5.1) mmol/L Chloride (98-107) mmol/L Carbon Dioxide (22-30) mmol/L Anion Gap mmol/L BUN (9-20) mg/dL Creatinine (0.66-1.25) mg/dL Est GFR (CKD-EPI)AfAm (>60 ml/min/1.73 sqM) Est GFR (CKD-EPI)NonAf (>60 ml/min/1.73 sqM) Glucose (74-99) mg/dL Lactic Ac Sepsis Rflx Y Plasma Lactic Acid Jase (0.7-2.0) mmol/L Calcium (8.4-10.2) mg/dL Total Bilirubin (0.2-1.3) mg/dL AST (17-59) U/L ALT (4-49) U/L Alkaline Phosphatase (38-126) U/L Total Protein (6.3-8.2) g/dL Albumin (3.5-5.0) g/dL Disposition Clinical Impression: Sciatica Disposition: HOME SELF-CARE Condition: Good Instructions (If sedation given, give patient instructions): Sciatica (ED) Prescriptions: predniSONE [Deltasone] 40 mg PO DAILY #8 tab Is patient prescribed a controlled substance at d/c from ED?: No Referrals: None,Stated [REFERRING] - 1-2 days Time of Disposition: 15:35
[2024-09-17 13:01] LABS: ALT 23 U/L (4-49); African American GFR (CKD) >90 (>60 ml/min/1.73 sqM); Anion Gap 11 mmol/L; Blood Urea Nitrogen 19 mg/dL (9-20); Calcium 9.2 mg/dL (8.4-10.2); Carbon Dioxide 24 mmol/L (22-30); Chloride 99 mmol/L (98-107); Glucose 146 mg/dL (74-99); Non-African American GFR(CKD) 81 (>60 ml/min/1.73 sqM); Sodium 134 mmol/L (137-145); Total Bilirubin 1.1 mg/dL (0.2-1.3)
[2024-09-17 13:12] LABS: AST 43 U/L (17-59); Albumin 4.4 g/dL (3.5-5.0); Alkaline Phosphatase 58 U/L (38-126); Potassium 5.6 mmol/L (3.5-5.1); Total Protein 7.6 g/dL (6.3-8.2)
[2024-09-17] MEDS: SODIUM CHLORIDE 0.9% 1,000 ML IV ONE (13:56)
--- NOTE | 2024-09-17 13:56 | US ---
EXAMINATION TYPE: US venous doppler duplex LE LT DATE OF EXAM: 09/17/2024 1:47 PM COMPARISON: CT study dated 08/19/2024. CLINICAL INDICATION: Male, 54 years old with history of Pain in the leg; extreme lateral hip pain at recent incision site, no h/o dvt TECHNIQUE: The lower extremity deep venous system is examined utilizing real time linear array sonog camelia with graded compression, color doppler sonography, and spectral doppler. SIDE PERFORMED: Left FINDINGS: VESSELS IMAGED: Common Femoral Vein Deep Femoral Vein Greater Saphenous Vein Femoral Vein Popliteal Vein Small Saphenous Vein Proximal Calf Veins (* superficial vessels) Patient refused to lay on bed so he was scanned sitting off edge of bed. Left Leg: Negative for DVT, Color Doppler imaging shows patency of the vessels. Spectral waveforms a re within normal limits. No drainable fluid collection/abscess subjacent to the scar in the left lateral thigh. IMPRESSION: No ultrasound evidence for deep venous thrombosis. [facility], , 09/17/2024 1:54 PM
[2024-09-17 15:47] VITALS: BP 118/75; PULSE 63; RESP 18; TEMP 97.8
[2024-09-17] MEDS: methylPREDNISolone SOD SUCCI 125 MG/2 ML VIAL IV STA (15:49)
--- NOTE | 2024-09-17 16:08 | XR ---
EXAMINATION TYPE: XR Hip LT and AP Pelvis DATE OF EXAM: 09/17/2024 3:12 PM COMPARISON: None. CLINICAL INDICATION: Male, 54 years old with history of Pain; H TECHNIQUE: XR Hip LT and AP Pelvis; hip was examined in the frontal and lateral projections and a AP pelvis. FINDINGS: No acute fracture or dislocation. Moderate left hip degenerative osteoarthritis and possibl e impending subchondral collapse with suspicion for bone infarction along the superior aspect of the left femoral head. The bones appear intact. Mild/moderate right hip degenerative arthritic changes. P ossible CAM morphology of the bilateral hips. IMPRESSION: 1. No acute fracture or dislocation. 2. 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 Recommend outpatient MRI study for further evaluation. [facility], , 09/17/2024 4:05 PM
== END 2024-09-17 15:48 | disposition home or self-care (01) ==
LOC: EC 11:36 → SUPCPDRO 11:36 → EC 15:48
DX: M54.32 Sciatica, left side (principal); Z87.891 Personal history of nicotine dependence
CPT/HCPCS: 36415; 80053; 83605; 85025; 73502; 93971; 99284; 96374; 96375; 96376; 96361; J1171; J2919

== ENCOUNTER 2024-12-05 20:07 | Inpatient (IN) | payer OTHER ==
--- NOTE | 2024-12-05 20:33 | ED ---
General Adult HPI - General Source: patient Mode of arrival: wheelchair Limitations: no limitations <Patsy Villegas - Last Filed: 12/05/24 20:32> - General Limitations: altered mental status - History of Present Illness -: days(s) Severity scale (1-10): 0 Consistency: constant Improves with: none Worsens with: none Associated Symptoms: confusion, shortness of breath, other (Leg edema for 2 weeks) Treatments Prior to Arrival: none <Bautista Smith - Last Filed: 12/08/24 22:03> - General Chief complaint: Shortness of Breath Stated complaint: Lightheaded,Weakness Time Seen by Provider: 12/05/24 20:32 - History of Present Illness Initial comments: 54-year-old male presenting with chief complaint of shortness of breath. He states he is having pain all over his body. He admits to congestion. (Patsy Villegas) Patient is 54-year-old man who is here for shortness of breath. When I interviewed the patient the history is somewhat limited as he does appear mildly delirious. Patient is denying chest pain. Denying significant cough. His friends do provide additional history that he is not get around much at home, and they feel also that he is somewhat confused. (Bautista Smith) - Related Data Home Medications Medication Instructions Recorded Confirmed Albuterol Sulfate [Albuterol 2 puff INHALATION RT-Q4H 06/05/20 12/06/24 Sulfate Hfa] DULoxetine HCL [Cymbalta] 30 mg PO BID 06/05/20 12/06/24 Pregabalin [Lyrica] 200 mg PO TID 06/05/20 12/06/24 Milnacipran HCl [Savella] 100 mg PO BID 04/05/22 12/06/24 Naproxen [Naprosyn] 500 mg PO BID 04/05/22 12/06/24 tiZANidine [Zanaflex] 4 mg PO TID PRN 04/05/22 12/06/24 Amitriptyline HCl [Elavil] 50 - 100 mg PO HS 02/25/24 12/06/24 INSULIN ASPART (NovoLOG) [NovoLOG 5 unit SQ TID-W/MEALS 02/25/24 12/06/24 (formulary)] Insulin Detemir (Levemir) [Levemir] 20 unit SQ BID 02/25/24 12/06/24 Loratadine [Claritin] 10 mg PO DAILY 02/25/24 12/06/24 Pramipexole Di-HCl [Mirapex] 0.75 mg PO HS 02/25/24 12/06/24 traZODone HCL 150 mg PO HS 08/04/24 12/06/24 Metoprolol Tartrate [Lopressor] 25 mg PO TID 08/16/24 12/06/24 Losartan Potassium [Cozaar] 100 mg PO DAILY 12/06/24 12/06/24 oxyCODONE HCL [Roxicodone] 15 mg PO TID 12/06/24 12/06/24 Previous Rx's Medication Instructions Recorded Amiodarone [Cordarone] 200 mg PO DAILY #30 tab 08/13/24 Apixaban [Eliquis] 5 mg PO BID #60 tab 08/13/24 Aspirin 81 mg PO DAILY #30 tab 08/13/24 Atorvastatin [Lipitor] 40 mg PO HS #30 tablet 08/13/24 Dapagliflozin Propanediol [Farxiga] 10 mg PO DAILY #30 tablet 08/13/24 Furosemide [Lasix] 40 mg PO BID #60 tablet 08/13/24 Allergies Allergy/AdvReac Type Severity Reaction Status Date / Time morphine Allergy Itching Verified 12/06/24 09:37 Review of Systems ROS Other: All systems not noted in ROS Statement are negative. <Patsy Villegas - Last Filed: 12/05/24 20:32> ROS Other: All systems not noted in ROS Statement are negative. Limitations: ROS unobtainable due to patients medical condition Constitutional: Reports: weakness. Denies: fever Respiratory: Reports: dyspnea Cardiovascular: Reports: edema. Denies: chest pain, syncope Gastrointestinal: Denies: abdominal pain, vomiting, diarrhea Genitourinary: Denies: dysuria, hematuria Musculoskeletal: Denies: back pain Skin: Denies: rash Neurological: Denies: headache, weakness, numbness <Bautista Smith - Last Filed: 12/08/24 22:03> ROS Statement: Those systems with pertinent positive or pertinent negative responses have been documented in the HPI. Past Medical History Past Medical History: Atrial Fibrillation, Chest Pain / Angina, Heart Failure, Diabetes Mellitus, Fibromyalgia, Hyperlipidemia, Hypertension, Pneumonia, Respiratory Disorder Additional Past Medical History / Comment(s): left outer thigh wound mostly healed, Left lung pneumonia/empyema, gout, chronic fibromyalgia, chronic lower back pain, degenerative arthritis, history of degenerative disc disease involving the lumbar spine, hypertension, hyperlipidemia, atrial fibrillation as the patient went into atrial fibrillation during her hospitalization for a left lower lobe pneumonia back in October 2017 and subsequently he converted back to normal sinus. He has chronic anxiety. NEUROPATHY History of Any Multi-Drug Resistant Organisms: None Reported Date of last positivie culture/infection: 08/17/24 MDRO Source:: sputum Past Surgical History: Back Surgery, Joint Replacement, Orthopedic Surgery Additional Past Surgical History / Comment(s): rt hip replacement, rt knee replacement, left knee surgery with metal, neck fusion, lower back surgery, traumatic amputation rt index finger, left index finger tip amputation from injury. I & D LT THIGH X 6, LUNG SURGERY, COLONOSCOPY Past Anesthesia/Blood Transfusion Reactions: Blood Transfusion Reaction Additional Past Anesthesia/Blood Transfusion Reaction / Comment(s): pt states some limited neck movement due to previous surgery, " I got degenerative bone disease from a blood transfusion", "I woke up in the middle of knee surgery" Past Psychological History: No Psychological Hx Reported Smoking Status: Former smoker Past Alcohol Use History: Daily Past Drug Use History: Marijuana - Past Family History Mother Family Medical History: No Reported History Additional Family Medical History / Comment(s): enlarged heart Father Family Medical History: No Reported History Additional Family Medical History / Comment(s): Father lived to be 101 yrs old. <Patsy Villegas - Last Filed: 12/05/24 20:32> General Exam Limitations: no limitations <Patsy Villegas - Last Filed: 12/05/24 20:32> Limitations: no limitations General appearance: alert, other (Patient is somnolent but arousable to verbal stimulus.) Head exam: Present: atraumatic, normocephalic Eye exam: Present: normal appearance, PERRL, EOMI. Absent: scleral icterus, conjunctival injection, nystagmus ENT exam: Present: mucous membranes dry Neck exam: Present: normal inspection, full ROM Respiratory exam: Present: wheezes. Absent: respiratory distress, rales, rhonchi, stridor, accessory muscle use, decreased breath sounds Cardiovascular Exam: Present: regular rate, normal rhythm, normal heart sounds. Absent: systolic murmur, diastolic murmur, rubs, gallop GI/Abdominal exam: Present: soft. Absent: distended, tenderness, guarding, rebound, rigid, mass Extremities exam: Present: normal capillary refill, pedal edema (Bilateral lower extremity edema to above the knee). Absent: tenderness, calf tenderness Back exam: Present: normal inspection Neurological exam: Present: altered. Absent: motor sensory deficit Expanded Patient oriented to: Present: person, place, time Speech: Present: fluid speech Cranial nerves: EOM's Intact: Normal Motor strength exam: RUE: 5, LUE: 5, RLE: 5, LLE: 5 Eye Response: (4) open spontaneously Motor Response: (6) obeys commands Verbal Response: (5) oriented Skin exam: Present: warm, dry, intact, normal color. Absent: rash <Bautista Smith - Last Filed: 12/08/24 22:03> - General Exam Comments Initial Comments: Visual Physical Exam Vital signs reviewed General: Well-appearing, nontoxic, no acute distress. Head: Normocephalic, atraumatic Eyes: PERRLA, EOMI ENT: Airway patent Chest: Nonlabored breathing Skin: No visual rash, normal skin tone Neuro: Alert and oriented 3 Musculoskeletal: No gross abnormalities (Patsy Villegas) Course Vital Signs 12/05/24 12/05/24 12/05/24 20:14 21:31 21:40 Temperature 98.6 F Pulse Rate 79 77 Pulse Rate [ Tattoo Designer ] Respiratory 18 20 18 Rate Blood Pressure 126/78 139/97 O2 Sat by Pulse 94 L 90 L Oximetry Fraction of Inspired Oxygen (FIO2) 12/05/24 12/05/24 12/05/24 22:17 22:20 22:38 Temperature Pulse Rate Pulse Rate [ Tattoo Designer ] Respiratory Rate Blood Pressure O2 Sat by Pulse Oximetry Fraction of 50 50 40 Inspired Oxygen (FIO2) 12/05/24 12/06/24 12/06/24 22:40 00:05 00:58 Temperature 98.5 F Pulse Rate 78 80 Pulse Rate [ 112 H Tattoo Designer ] Respiratory 16 16 22 Rate Blood Pressure 87/43 102/63 O2 Sat by Pulse 99 99 98 Oximetry Fraction of Inspired Oxygen (FIO2) 12/06/24 12/06/24 12/06/24 01:01 01:14 03:26 Temperature Pulse Rate 92 96 Pulse Rate [ Tattoo Designer ] Respiratory 16 16 Rate Blood Pressure 115/63 137/84 O2 Sat by Pulse 100 100 Oximetry Fraction of 40 Inspired Oxygen (FIO2) 12/06/24 12/06/24 12/06/24 04:17 05:41 06:29 Temperature Pulse Rate 101 H 106 H Pulse Rate [ Tattoo Designer ] Respiratory 18 18 Rate Blood Pressure 146/89 O2 Sat by Pulse 94 L 96 Oximetry Fraction of 40 Inspired Oxygen (FIO2) 12/06/24 12/06/24 12/06/24 07:43 08:27 08:46 Temperature 98.7 F Pulse Rate 105 H 108 H 112 H Pulse Rate [ Tattoo Designer ] Respiratory 20 Rate Blood Pressure 146/89 O2 Sat by Pulse 97 Oximetry Fraction of Inspired Oxygen (FIO2) 12/06/24 12/06/24 12/06/24 11:15 11:25 11:26 Temperature Pulse Rate 106 H 98 95 Pulse Rate [ Tattoo Designer ] Respiratory 18 Rate Blood Pressure 120/86 O2 Sat by Pulse 97 Oximetry Fraction of Inspired Oxygen (FIO2) 12/06/24 12/06/24 14:35 14:40 Temperature 98.9 F Pulse Rate 100 Pulse Rate [ Tattoo Designer ] Respiratory 20 Rate Blood Pressure 109/62 O2 Sat by Pulse 98 Oximetry Fraction of Inspired Oxygen (FIO2) EKG Findings - EKG Results: EKG: interpreted by ERMD, sinus rhythm (Rate 78 bpm), normal QRS, normal ST/T <Bautista Smith - Last Filed: 12/08/24 22:03> Medical Decision Making <Patsy Villegas - Last Filed: 12/05/24 20:32> - Lab Data Result diagrams: 12/06/24 05:30 12/08/24 11:10 <Bautista Smith - Last Filed: 12/08/24 22:03> - Medical Decision Making I performed the quick note portion of this visit, electronically signed Patsy Villegas PA-C (Patsy Villegas) Patient is a 54-year-old man here with dyspnea and delirium. He is hypersomnolent, and falls asleep if he does not have verbal stimulation. Patient does appear to be retaining CO2. The patient's workup did reveal mildly elevated CO2 and acidosis with pH of 7.3. Patient placed on BiPAP and admitted. Case discussed with admitting physician and will have pulmonology consultation. In the morning, the patient is more awake and alert. The BiPAP is removed and the patient has repeat venous blood gas. The CO2 has not changed markedly and is only mildly improved, suspect at this point that the patient recent change in his narcotic pain medicine may be too strong causing the sedation observed last night. The patient had chest x-ray that I interpreted as negative for acute infiltrate, pneumothorax, congestive heart failure Was pt. sent in by a medical professional or institution (, PA, EDITOR IN CHIEF NEWSPAPER, urgent care, hospital, or intermediate...) When possible be specific @ -[No] Did you speak to anyone other than the patient for history (EMS, parent, family, police, friend...)? What history was obtained from this source @ -[The patient did have 2 friends who accompanied him and gave much of the initial history. Did you review nursing and triage notes (agree or disagree)? Why? @ -[I reviewed and agree with nursing and triage notes] Were old charts reviewed (outside hosp., previous admission, EMS record, old EKG, old radiological studies, urgent care reports/EKG's, intermediate records)? Report findings @ -[No old charts were reviewed] Differential Diagnosis (chest pain, altered mental status, abdominal pain women, abdominal pain men, vaginal bleeding, weakness, fever, dyspnea, syncope, headache, dizziness, GI bleed, back pain, seizure, CVA, palpatations, mental health, musculoskeletal)? @ -[Differential Altered Mental Status: Hypoglycemia, DKA, hypercapnia, ETOH, overdose, CO poisoning, trauma, myxedema coma, HTN encephalopathy, infection, encephalitis, psychosis, intercranial hemorrhage, hepatic encephalopathy, meningitis, CVA, this is not meant to be an all-inclusive list Differential Dyspnea: Coronary syndrome, arrhythmia, tamponade, asthma, COPD, pulmonary embolism, pneumonia, pneumothorax, pulmonary effusion, anaphylaxis, diabetic ketoacidosis, flailed chest, pulmonary contusion, diaphragmatic rupture, anemia, neuromuscular, this is not meant to be an all-inclusive list. EKG interpreted by me (3pts min.). @ -[I interpreted as above] X-rays interpreted by me (1pt min.). @ -[I interpreted as above CT interpreted by me (1pt min.). @ -[None done] U/S interpreted by me (1pt. min.). @ -[None done] What testing was considered but not performed or refused? (CT, X-rays, U/S, labs)? Why? @ -[None] What meds were considered but not given or refused? Why? @ -[None] Did you discuss the management of the patient with other professionals (professionals i.e. , PA, EDITOR IN CHIEF NEWSPAPER, lab, RT, psych nurse, child welfare social worker, fig washer, teacher, fare enforcement officer, case management director)? Give summary @ -Case discussed with admitting physician and treatment recommendations are incorporated Was smoking cessation discussed for >3mins.? @ -[Yes Was critical care preformed (if so, how long)? @ -[Yes, 35 minutes Were there social determinants of health that impacted care today? How? (Homelessness, low income, unemployed, alcoholism, drug addiction, transportati on, low edu. Level, literacy, decrease access to med. care, correction, rehab)? @ -[No] Was there de-escalation of care discussed even if they declined (Discuss DNR or withdrawal of care, Hospice)? DNR status @ -[No] What co-morbidities impacted this encounter? (DM, HTN, Smoking, COPD, CAD, Cancer, CVA, ARF, Chemo, Hep., AIDS, mental health diagnosis, sleep apnea, morbid obesity)? @ -[COPD, morbid obesity, heavy tobacco use, diabetes, chronic back pain requiring opioid use, atrial fibrillation Was patient admitted / discharged? Hospital course, mention meds given and route, prescriptions, significant lab abnormalities, going to OR and other pertinent info. @ -[Patient is admitted to have further pulmonology evaluation and treatment. Undiagnosed new problem with uncertain prognosis? @ -[No] Drug Therapy requiring intensive monitoring for toxicity (Heparin, Nitro, Insulin, Cardizem)? @ -[No] Were any procedures done? @ -[No] Diagnosis/symptom? @ -[Acute exacerbation of COPD, hypercarbic respiratory failure Acute mental status change/delirium Acute kidney injury Acute, or Chronic, or Acute on Chronic? @ -[Acute Uncomplicated (without systemic symptoms) or Complicated (systemic symptoms)? @ -[Complicated by mental status change Side effects of treatment? @ -[No] Exacerbation, Progression, or Severe Exacerbation? @ -[No] Poses a threat to life or bodily function? How? (Chest pain, USA, SC, pneumonia, PE, COPD, DKA, ARF, appy, cholecystitis, CVA, Diverticulitis, Homicidal, Suicidal, threat to staff... and all critical care pts) @ -[Yes All treatments are based on ideal body weight as in ED triage (Bautista Smith) - Lab Data Lab Results 12/05/24 12/05/24 12/05/24 Range/Units 20:47 20:47 20:47 WBC 12.6 H (3.8-10.6) k/uL RBC 4.82 (4.30-5.90) m/uL Hgb 15.0 (13.0-17.5) gm/dL Hct 45.5 (39.0-53.0) % MCV 94.3 (80.0-100.0) fL MCH 31.2 (25.0-35.0) pg MCHC 33.1 (31.0-37.0) g/dL RDW 14.1 (11.5-15.5) % Plt Count 275 (150-450) k/uL MPV 8.1 Neutrophils % 69 % Lymphocytes % 22 % Monocytes % 4 % Eosinophils % 3 % Basophils % 1 % Neutrophils # 8.6 H (1.3-7.7) k/uL Lymphocytes # 2.7 (1.0-4.8) k/uL Monocytes # 0.5 (0-1.0) k/uL Eosinophils # 0.4 (0-0.7) k/uL Basophils # 0.1 (0-0.2) k/uL PT 10.0 (10.0-12.5) sec INR 0.9 (<1.2) APTT 25.5 (22.0-30.0) sec VBG pH (7.31-7.41) VBG pCO2 (37-51) mmHg VBG HCO3 (24-28) mmol/L Sodium 139 (137-145) mmol/L Potassium 4.4 (3.5-5.1) mmol/L Chloride 105 (98-107) mmol/L Carbon Dioxide 26 (22-30) mmol/L Anion Gap 8 mmol/L BUN 32 H (9-20) mg/dL Creatinine 1.57 H (0.66-1.25) mg/dL Est GFR (CKD-EPI)AfAm 57 (>60 ml/min/1.73 sqM) Est GFR (CKD-EPI)NonAf 49 (>60 ml/min/1.73 sqM) Glucose 116 H (74-99) mg/dL Plasma Lactic Acid Jase (0.7-2.0) mmol/L Calcium 9.0 (8.4-10.2) mg/dL Total Bilirubin 0.5 (0.2-1.3) mg/dL AST 19 (17-59) U/L ALT 17 (4-49) U/L Alkaline Phosphatase 110 (38-126) U/L Troponin I (0.000-0.034) ng/mL NT-Pro-B Natriuret Pep 52 pg/mL Total Protein 6.3 (6.3-8.2) g/dL Albumin 3.6 (3.5-5.0) g/dL Serum Alcohol mg/dL Influenza Type A (PCR) (Not Detectd) Influenza Type B (PCR) (Not Detectd) RSV (PCR) (Not Detectd) SARS-CoV-2 (PCR) (Not Detectd) 12/05/24 12/05/24 12/05/24 Range/Units 20:47 20:47 21:34 WBC (3.8-10.6) k/uL RBC (4.30-5.90) m/uL Hgb (13.0-17.5) gm/dL Hct (39.0-53.0) % MCV (80.0-100.0) fL MCH (25.0-35.0) pg MCHC (31.0-37.0) g/dL RDW (11.5-15.5) % Plt Count (150-450) k/uL MPV Neutrophils % % Lymphocytes % % Monocytes % % Eosinophils % % Basophils % % Neutrophils # (1.3-7.7) k/uL Lymphocytes # (1.0-4.8) k/uL Monocytes # (0-1.0) k/uL Eosinophils # (0-0.7) k/uL Basophils # (0-0.2) k/uL PT (10.0-12.5) sec INR (<1.2) APTT (22.0-30.0) sec VBG pH 7.30 L (7.31-7.41) VBG pCO2 58 H (37-51) mmHg VBG HCO3 28 (24-28) mmol/L Sodium (137-145) mmol/L Potassium (3.5-5.1) mmol/L Chloride (98-107) mmol/L Carbon Dioxide (22-30) mmol/L Anion Gap mmol/L BUN (9-20) mg/dL Creatinine (0.66-1.25) mg/dL Est GFR (CKD-EPI)AfAm (>60 ml/min/1.73 sqM) Est GFR (CKD-EPI)NonAf (>60 ml/min/1.73 sqM) Glucose (74-99) mg/dL Plasma Lactic Acid Jase 1.1 (0.7-2.0) mmol/L Calcium (8.4-10.2) mg/dL Total Bilirubin (0.2-1.3) mg/dL AST (17-59) U/L ALT (4-49) U/L Alkaline Phosphatase (38-126) U/L Troponin I <0.012 (0.000-0.034) ng/mL NT-Pro-B Natriuret Pep pg/mL Total Protein (6.3-8.2) g/dL Albumin (3.5-5.0) g/dL Serum Alcohol mg/dL Influenza Type A (PCR) (Not Detectd) Influenza Type B (PCR) (Not Detectd) RSV (PCR) (Not Detectd) SARS-CoV-2 (PCR) (Not Detectd) 12/05/24 12/05/24 Range/Units 21:58 22:26 WBC (3.8-10.6) k/uL RBC (4.30-5.90) m/uL Hgb (13.0-17.5) gm/dL Hct (39.0-53.0) % MCV (80.0-100.0) fL MCH (25.0-35.0) pg MCHC (31.0-37.0) g/dL RDW (11.5-15.5) % Plt Count (150-450) k/uL MPV Neutrophils % % Lymphocytes % % Monocytes % % Eosinophils % % Basophils % % Neutrophils # (1.3-7.7) k/uL Lymphocytes # (1.0-4.8) k/uL Monocytes # (0-1.0) k/uL Eosinophils # (0-0.7) k/uL Basophils # (0-0.2) k/uL PT (10.0-12.5) sec INR (<1.2) APTT (22.0-30.0) sec VBG pH (7.31-7.41) VBG pCO2 (37-51) mmHg VBG HCO3 (24-28) mmol/L Sodium (137-145) mmol/L Potassium (3.5-5.1) mmol/L Chloride (98-107) mmol/L Carbon Dioxide (22-30) mmol/L Anion Gap mmol/L BUN (9-20) mg/dL Creatinine (0.66-1.25) mg/dL Est GFR (CKD-EPI)AfAm (>60 ml/min/1.73 sqM) Est GFR (CKD-EPI)NonAf (>60 ml/min/1.73 sqM) Glucose (74-99) mg/dL Plasma Lactic Acid Jase (0.7-2.0) mmol/L Calcium (8.4-10.2) mg/dL Total Bilirubin (0.2-1.3) mg/dL AST (17-59) U/L ALT (4-49) U/L Alkaline Phosphatase (38-126) U/L Troponin I (0.000-0.034) ng/mL NT-Pro-B Natriuret Pep pg/mL Total Protein (6.3-8.2) g/dL Albumin (3.5-5.0) g/dL Serum Alcohol <10 mg/dL Influenza Type A (PCR) Not Detected (Not Detectd) Influenza Type B (PCR) Not Detected (Not Detectd) RSV (PCR) Not Detected (Not Detectd) SARS-CoV-2 (PCR) Not Detected (Not Detectd) Disposition <Patsy Villegas - Last Filed: 12/05/24 20:32> Is patient prescribed a controlled substance at d/c from ED?: No <Bautista Smith - Last Filed: 12/08/24 22:03> Clinical Impression: Metabolic encephalopathy, COPD exacerbation Disposition: ADMITTED IP TO THIS HOSP Condition: Serious
[2024-12-05 20:55] LABS: Basophils # (A) 0.1 k/uL (0-0.2); Basophils % (A) 1 %; Eosinophils # (A) 0.4 k/uL (0-0.7); Eosinophils % (A) 3 %; HCT 45.5 % (39.0-53.0); Lymphocytes # (A) 2.7 k/uL (1.0-4.8); Lymphocytes % (A) 22 %; MCH 31.2 pg (25.0-35.0); MCHC 33.1 g/dL (31.0-37.0); MCV 94.3 fL (80.0-100.0); Mean Platelet Volume 8.1; Monocytes # (A) 0.5 k/uL (0-1.0); Monocytes % (A) 4 %; Neutrophils # (A) 8.6 k/uL (1.3-7.7); Neutrophils % (A) 69 %; Platelet Count 275 k/uL (150-450); RBC 4.82 m/uL (4.30-5.90); RDW 14.1 % (11.5-15.5); WBC 12.6 k/uL (3.8-10.6)
[2024-12-05 21:06] LABS: ALT 17 U/L (4-49); AST 19 U/L (17-59); African American GFR (CKD) 57 (>60 ml/min/1.73 sqM); Albumin 3.6 g/dL (3.5-5.0); Alkaline Phosphatase 110 U/L (38-126); Anion Gap 8 mmol/L; Blood Urea Nitrogen 32 mg/dL (9-20); Carbon Dioxide 26 mmol/L (22-30); Chloride 105 mmol/L (98-107); Glucose 116 mg/dL (74-99); Non-African American GFR(CKD) 49 (>60 ml/min/1.73 sqM); Potassium 4.4 mmol/L (3.5-5.1); Sodium 139 mmol/L (137-145); Total Bilirubin 0.5 mg/dL (0.2-1.3); Total Protein 6.3 g/dL (6.3-8.2)
[2024-12-05 21:08] LABS: INR 0.9 (<1.2); Partial Thromboplastin Time 25.5 sec (22.0-30.0)
[2024-12-05 21:14] LABS: NT-Pro-B-Type Natriuretic Pept 52 pg/mL
--- NOTE | 2024-12-05 21:40 | XR ---
EXAMINATION TYPE: XR chest 2V DATE OF EXAM: 12/05/2024 9:25 PM COMPARISON: Chest radiographs from08/21/2024 CLINICAL INDICATION: Male, 54 years old with history of difficulty breathing; [facility] TECHNIQUE: XR chest 2V Frontal and lateral views of the chest. FINDINGS: Lungs/Pleura: Low lung volumes are present. There is no evidence of pleural effusion, focal consolida tion, or pneumothorax. Pulmonary vascularity: Pulmonary vascular congestion. Heart/mediastinum: Cardiomediastinal silhouette is enlarged. Musculoskeletal: No acute osseous pathology. IMPRESSION: Low lung volumes with a generalized hazy appearance which could represent atelectasis versus pulmonar y edema correlate with serum BNP. [facility], , 12/05/2024 9:35 PM
[2024-12-05 21:57] LABS: VBG PH 7.3 (7.31-7.41)
[2024-12-05] MEDS: LORazepam 2 MG/ML INJ IV STA (22:21)
[2024-12-05] MEDS: SODIUM CHLORIDE 0.9% 500 ML 500 ML IV STA (22:42)
[2024-12-05 22:49] LABS: Influenza A Not Detected (Not Detectd); Influenza B Not Detected (Not Detectd); RSV Not Detected (Not Detectd)
[2024-12-06] MEDS ORDERED: IPRATROPIUM-ALBUTEROL 3 ML NEB INHALATION PRN (00:07)
[2024-12-06] MEDS ORDERED: NALOXONE 0.4 MG/ML 1 ML VIAL IVP PRN (00:07)
[2024-12-06] MEDS: methylPREDNISolone SOD SUCCI 125 MG/2 ML VIAL IV STA (00:36)
[2024-12-06 05:47] LABS: Basophils % (A) 0 %; Eosinophils # (A) 0.1 k/uL (0-0.7); Eosinophils % (A) 1 %; HCT 45.8 % (39.0-53.0); HGB 14.8 gm/dL (13.0-17.5); Lymphocytes # (A) 1.2 k/uL (1.0-4.8); Lymphocytes % (A) 7 %; MCHC 32.3 g/dL (31.0-37.0); MCV 95.8 fL (80.0-100.0); Mean Platelet Volume 7.9; Monocytes # (A) 0.2 k/uL (0-1.0); Monocytes % (A) 1 %; Neutrophils # (A) 14.4 k/uL (1.3-7.7); Neutrophils % (A) 90 %; Platelet Count 272 k/uL (150-450); RBC 4.79 m/uL (4.30-5.90); VBG PH 7.32 (7.31-7.41)
[2024-12-06] MEDS: methylPREDNISolone SOD SUCCI 125 MG/2 ML VIAL IV SCH (06:12)
[2024-12-06 06:17] LABS: ALT 17 U/L (4-49); AST 18 U/L (17-59); African American GFR (CKD) 72 (>60 ml/min/1.73 sqM); Albumin 3.4 g/dL (3.5-5.0); Alkaline Phosphatase 133 U/L (38-126); Anion Gap 7 mmol/L; Blood Urea Nitrogen 29 mg/dL (9-20); Calcium 9.2 mg/dL (8.4-10.2); Carbon Dioxide 26 mmol/L (22-30); Chloride 103 mmol/L (98-107); Glucose 237 mg/dL (74-99); Non-African American GFR(CKD) 62 (>60 ml/min/1.73 sqM); Potassium 4.4 mmol/L (3.5-5.1); Sodium 136 mmol/L (137-145); Total Bilirubin 0.5 mg/dL (0.2-1.3); Total Protein 6.2 g/dL (6.3-8.2)
[2024-12-06] MEDS ORDERED: DEXTROSE 50% SYRINGE 50 ML IVP PRN ×2 (07:01)
[2024-12-06 07:18] LABS: Glucose,Whole Blood 303 mg/dL (70-110)
[2024-12-06] MEDS: INSULIN LISPRO (HumaLOG) 100 UNIT/ML 10 mL VL SQ SCH ×2 (07:35→07:38)
[2024-12-06] MEDS: NAPROXEN 250 MG TAB PO SCH (08:12)
[2024-12-06] MEDS: oxyCODONE ER 10 MG TAB.ER.12H PO SCH (08:12)
[2024-12-06] MEDS: PREGABALIN 100 MG CAP PO SCH (08:12)
[2024-12-06] MEDS: AMIODARONE 200 MG TAB PO SCH (08:12)
[2024-12-06] MEDS: DAPAGLIFLOZIN PROPANEDIOL 10 MG TABLET PO SCH (08:12)
[2024-12-06] MEDS: HEPARIN SODIUM,PORCINE 5,000 UNIT/ML 1 ML VIAL SQ SCH (08:13)
[2024-12-06] MEDS: FAMOTIDINE 20 MG/2 ML VIAL IV SCH (08:13)
[2024-12-06] MEDS: INSULIN GLARGINE (LANTUS) 100 UNIT/ML SYR SQ SCH (08:14)
[2024-12-06] MEDS ORDERED: LORazepam 2 MG/ML INJ IV PRN ×3 (08:24)
[2024-12-06] MEDS: SYMBICORT 160-4.5 MCG INHALER INHALATION SCH (08:26)
[2024-12-06] MEDS: IPRATROPIUM-ALBUTEROL 3 ML NEB INHALATION SCH (08:26)
--- NOTE | 2024-12-06 08:35 | P.HPIM ---
History of Present Illness This is a pleasant 54 years old male with past medical history of multiple medical problems as below Presents because of shortness of breath x 7 days duration associated with cough and greenish phlegm started yesterday but no chest pain. No specific GI/ symptom. No neurological complaint He smokes 3 to 5 cigarettes/day and he was counseled to quit and he agrees that he declines nicotine patch. No alcohol or illicit drugs. He is not on oxygen at home. He is has no fever on admission but he is tachycardic 106. CBC showing leukocytosis 12-16 and creatinine elevated 1.5, down to 1.3 with baseline 0.8-1.2. LFT were unremarkable. Troponin and INR were unremarkable. Influenza and COVID test were negative proBNP is 52 Alcohol level less than 10. Chest x-ray showing low lung volumes for generalized appearance of atelectasis more than pulmonary edema EKG showing sinus rhythm at 78. Patient started on IV Solu-Medrol and ce ftriaxone and Zithromax Review of Systems Review of systems CONSTITUTIONAL: No fever, no malaise, no fatigue. HEENT: No recent visual problems or hearing problems. Denied any sore throat. CARDIOVASCULAR: No orthopnea, PND, no palpitations, no syncope. PULMONARY: No chest wall tenderness , no hemoptysis. GASTROINTESTINAL: No diarrhea, no nausea, no vomiting, no abdominal pain. Normoactive bowel sounds. NEUROLOGICAL: No headaches, no weakness, no numbness. HEMATOLOGICAL: Denies any bleeding or petechiae. GENITOURINARY: Denies any burning micturition, frequency, or urgency. MUSCULOSKELETAL/RHEUMATOLOGICAL: Denies any joint pain, swelling, or any muscle pain. ENDOCRINE: Denies any polyuria or polydipsia. Past Medical History Past Medical History: Atrial Fibrillation, Chest Pain / Angina, Heart Failure, Diabetes Mellitus, Fibromyalgia, Hyperlipidemia, Hypertension, Pneumonia, Respiratory Disorder Additional Past Medical History / Comment(s): left outer thigh wound mostly healed, Left lung pneumonia/empyema, gout, chronic fibromyalgia, chronic lower back pain, degenerative arthritis, history of degenerative disc disease involving the lumbar spine, hypertension, hyperlipidemia, atrial fibrillation as the patient went into atrial fibrillation during her hospitalization for a left lower lobe pneumonia back in October 2017 and subsequently he converted back to normal sinus. He has chronic anxiety. NEUROPATHY History of Any Multi-Drug Resistant Organisms: None Reported Date of last positivie culture/infection: 08/17/24 MDRO Source:: sputum Past Surgical History: Back Surgery, Joint Replacement, Orthopedic Surgery Additional Past Surgical History / Comment(s): rt hip replacement, rt knee replacement, left knee surgery with metal, neck fusion, lower back surgery, traumatic amputation rt index finger, left index finger tip amputation from injury. I & D LT THIGH X 6, LUNG SURGERY, COLONOSCOPY Past Anesthesia/Blood Transfusion Reactions: Blood Transfusion Reaction Additional Past Anesthesia/Blood Transfusion Reaction / Comment(s): pt states some limited neck movement due to previous surgery, " I got degenerative bone disease from a blood transfusion", "I woke up in the middle of knee surgery" Past Psychological History: No Psychological Hx Reported Smoking Status: Former smoker Past Alcohol Use History: Daily Past Drug Use History: Marijuana - Past Family History Mother Family Medical History: No Reported History Additional Family Medical History / Comment(s): enlarged heart Father Family Medical History: No Reported History Additional Family Medical History / Comment(s): Father lived to be 101 yrs old. Medications and Allergies Home Medications Medication Instructions Recorded Confirmed Type Albuterol Sulfate [Albuterol 2 puff INHALATION RT-Q6H 06/05/20 08/16/24 History Sulfate Hfa] DULoxetine HCL [Cymbalta] 30 mg PO BID 06/05/20 08/16/24 History Pregabalin [Lyrica] 200 mg PO TID 06/05/20 08/16/24 History oxyCODONE HCL/ACETAMINOPHEN 1 tab PO QID PRN 06/05/20 08/16/24 History [Percocet 10-325 mg] Fluticasone/Umeclidin/Vilanter 1 puff INHALATION RT-DAILY 04/05/22 08/16/24 Hi story [Trelegy Ellipta 100-62.5-25] Milnacipran HCl [Savella] 100 mg PO DAILY 04/05/22 08/16/24 History Naproxen [Naprosyn] 500 mg PO BID 04/05/22 08/16/24 History tiZANidine [Zanaflex] 6 mg PO TID PRN 04/05/22 08/16/24 History Amitriptyline HCl [Elavil] 50 - 100 mg PO HS 02/25/24 08/16/24 History INSULIN ASPART (NovoLOG) [NovoLOG 5 unit SQ TID-W/MEALS 02/25/24 08/16/24 History (formulary)] Insulin Detemir (Levemir) [Levemir] 20 unit SQ BID 02/25/24 08/16/24 History Loratadine [Claritin] 10 mg PO DAILY 02/25/24 08/16/24 History Pramipexole Di-HCl [Mirapex] 0.75 mg PO HS 02/25/24 08/16/24 History oxyCODONE ER [OxyCONTIN] 10 mg PO Q12HR 02/25/24 08/16/24 History traZODone HCL 150 mg PO HS 08/04/24 08/16/24 History Amiodarone [Cordarone] 200 mg PO DAILY #30 tab 08/13/24 08/16/24 Rx Apixaban [Eliquis] 5 mg PO BID #60 tab 08/13/24 08/16/24 Rx Aspirin 81 mg PO DAILY #30 tab 08/13/24 08/16/24 Rx Atorvastatin [Lipitor] 40 mg PO HS #30 tablet 08/13/24 08/16/24 Rx Dapagliflozin Propanediol [Farxiga] 10 mg PO DAILY #30 tablet 08/13/24 08/16/24 Rx Furosemide [Lasix] 40 mg PO BID #60 tablet 08/13/24 08/16/24 Rx Metoprolol Tartrate [Lopressor] 75 mg PO DIRECTED 08/16/24 08/16/24 History Doxycycline [Vibramycin] 100 mg PO BID 14 Days #28 capsule 08/24/24 Rx Sulfamethox-Tmp 800-160Mg [Bactrim 1 each PO BID #28 tab 08/24/24 Rx DS 800-160 mg] predniSONE [Deltasone] 40 mg PO DAILY #8 tab 09/17/24 Rx Allergies Allergy/AdvReac Type Severity Reaction Status Date / Time morphine Allergy Itching Verified 12/05/24 20:14 Physical Exam Vitals: Vital Signs Temp Pulse Resp BP Pulse Ox FiO2 12/06/24 07:43 98.7 F 105 H 20 146/89 97 12/06/24 06:29 106 H 18 96 12/06/24 05:41 101 H 18 146/89 94 L 12/06/24 04:17 40 12/06/24 03:26 96 16 137/84 100 12/06/24 01:14 92 16 115/63 100 12/06/24 01:01 40 12/06/24 00:05 80 16 102/63 99 12/05/24 22:40 78 16 87/43 99 12/05/24 22:38 40 12/05/24 22:20 50 12/05/24 22:17 50 12/05/24 21:40 18 12/05/24 21:31 77 20 139/97 90 L 12/05/24 20:14 98.6 F 79 18 126/78 94 L Intake and Output 12/05/24 12/06/24 12/06/24 22:59 06:59 14:59 Other: Weight 154.221 kg GENERAL: The patient is alert and oriented x3, not in any acute distress. Well developed, well nourished. HEENT: Pupils are round and equally reacting to light. EOMI. No scleral icterus. No conjunctival pallor. Normocephalic, atraumatic. No pharyngeal erythema. No thyromegaly. CARDIOVASCULAR: S1 and S2 present. No murmurs, rubs, or gallops. -PULMONARY: Chest is clear to auscultation, bilateral scattered wheezing and crackles ezing , no crackles. Tachypneic, on BiPAP ABDOMEN: Soft, nontender, nondistended, normoactive bowel sounds. No palpable organomegaly. MUSCULOSKELETAL: No joint swelling or deformity. -EXTREMITIES: No cyanosis, clubbing, 3+ bilateral pitting leg edema NEUROLOGICAL: Gross neurological examination did not reveal any focal deficits. SKIN: No rashes. no petechiae. Results CBC & Chem 7: 12/06/24 05:30 12/06/24 05:30 Labs: Abnormal Lab Results - Last 24 Hours (Table) 12/05/24 12/05/24 12/05/24 Range/Units 20:47 20:47 21:34 WBC 12.6 H (3.8-10.6) k/uL Neutrophils # 8.6 H (1.3-7.7) k/uL VBG pH 7.30 L (7.31-7.41) VBG pCO2 58 H (37-51) mmHg Sodium (137-145) mmol/L BUN 32 H (9-20) mg/dL Creatinine 1.57 H (0.66-1.25) mg/dL Glucose 116 H (74-99) mg/dL POC Glucose (mg/dL) (70-110) mg/dL Alkaline Phosphatase (38-126) U/L Total Protein (6.3-8.2) g/dL Albumin (3.5-5.0) g/dL 12/06/24 12/06/24 12/06/24 Range/Units 05:30 05:30 05:30 WBC 16.0 H (3.8-10.6) k/uL Neutrophils # 14.4 H (1.3-7.7) k/uL VBG pH (7.31-7.41) VBG pCO2 55 H (37-51) mmHg Sodium 136 L (137-145) mmol/L BUN 29 H (9-20) mg/dL Creatinine 1.30 H (0.66-1.25) mg/dL Glucose 237 H (74-99) mg/dL POC Glucose (mg/dL) (70-110) mg/dL Alkaline Phosphatase 133 H (38-126) U/L Total Protein 6.2 L (6.3-8.2) g/dL Albumin 3.4 L (3.5-5.0) g/dL 12/06/24 Range/Units 07:16 WBC (3.8-10.6) k/uL Neutrophils # (1.3-7.7) k/uL VBG pH (7.31-7.41) VBG pCO2 (37-51) mmHg Sodium (137-145) mmol/L BUN (9-20) mg/dL Creatinine (0.66-1.25) mg/dL Glucose (74-99) mg/dL POC Glucose (mg/dL) 303 H (70-110) mg/dL Alkaline Phosphatase (38-126) U/L Total Protein (6.3-8.2) g/dL Albumin (3.5-5.0) g/dL Assessment and Plan Assessment: Acute tracheobronchitis possible Acute COPD exacerbation Obesity with BMI of 39.3. Chronic kidney disease stage II. With mild acute kidney injury present on admission. History of atrial fibrillation CHF Diabetes mellitus Hypertension Hyperlipidemia History of respiratory disorder and left lung pneumonia/empyema. Plan: Continue with ceftriaxone and Zithromax Continue with the steroids Bronchodilator Pulmonary consult Labs and medication were reviewed.. Continue same treatment. Continue with symptomatic treatment. Resume home medication. Monitor labs and vitals. DVT and GI prophylaxis. Further recommendations as per clinical course of the patient DVT prophylaxis: Subcutaneous heparin GI Prophylaxis: Pepcid PT/OT: Pending Prognosis is guarded
[2024-12-06] MEDS ORDERED: INSULIN GLARGINE (LANTUS) 100 UNIT/ML SYR SQ SCH (09:00)
[2024-12-06] MEDS ORDERED: PANTOPRAZOLE 40 MG/10 ML VIAL IVP SCH (09:00)
[2024-12-06] MEDS: AZITHROMYCIN 500 MG TAB PO SCH (09:16)
[2024-12-06] MEDS: IPRATROPIUM 0.5 MG/2.5 ML NEBU INHALATION SCH (09:25)
[2024-12-06] MEDS: THIAMINE 100 MG in SODIUM CHLORIDE 0.9% 50 ML IVPB SCH (10:13)
[2024-12-06] MEDS: METOPROLOL TARTRATE 25 MG TAB PO SCH (10:13)
[2024-12-06 11:47] LABS: Glucose,Whole Blood 319 mg/dL (70-110)
[2024-12-06] MEDS ORDERED: ALBUTEROL HFA INHALER INHALATION SCH (12:00)
--- NOTE | 2024-12-06 14:24 | P.CNPUL ---
History of Present Illness Consult date: 12/06/24 Requesting physician: Sol Sanchez Reason for consult: dyspnea, cough, COPD, hypoxemia, pneumonia, abnormal CXR/CT, obstructive sleep apnea Chief complaint: Shortness of breath. History of present illness: Pulmonary consultation dated December 06, 2024. This is a 54-year-old male, who presented to the emergency department, on December 05, complaining of shortness of breath, lightheadedness, and weakness. He apparently stated to the ER physician, or some personnel in the emergency department, that he was having pain all over. The patient apparently was quite confused or delirious initially, although today when we saw him in room 5, in the emergency department, he was quite talkative, talking about various things including chronic back issues, a broken back, and the need for surgical proced ure. The patient was initially placed on BiPAP, with settings of 10/5, and 40%. When we saw him he was on room air. His viral screen was negative. I saw him in the past, and did bronchoscopy on him back in August 2024. The patient was coughing up very purulent looking green phlegm. As mentioned, he was complaining of significant shortness of breath. The patient is a smoker. His history includes among other things, atrial fibrillation, heart failure, diabetes mellitus, fibromyalgia, hyperlipidemia, hypertension, pneumonia, empyema, gout, chronic low back pain, degenerative disc disease, among other things. The patient is a former heavy smoker, but apparently does not smoke currently. He has smoked marijuana in the past. Laboratory data includes a white count of 16, hemoglobin 14.8, hematocrit 45.8, and a platelet count of 272,000. Venous blood gas shows a CO2 of 55 and a pH of 7.32. Sodium 136, potassium 4.4, chlorides 103, CO2 26, anion gap 7, BUN 29, and creatinine 1.30. Glucose is 319. Albumin 3.4. Alcohol level less than 10. Viral screen was negative. Chest x-ray showed low lung volumes, with generalized hazy appearance, either secondary to atelectasis, or pulmonary edema. The patient's troponin was negative. And his N-terminal proBNP was only 52. We did put an order in for a procalcitonin level. Review of Systems REVIEW OF SYSTEMS: CONSTITUTIONAL: Confusion/delirium. NEUROLOGIC: [ Negative.] HEENT: [ Negative.] CARDIAC: [Negative.] PULMONARY: Shortness of breath, cough, and purulent sputum production which is green. GI: [Negative.] : [Negative.] RHEUMATOLOGIC: [ Negative.] IMMUNOLOGIC: [ Negative.] ENDOCRINE: [Negative. ] DERMATOLOGIC: [Negative.] Past Medical History Past Medical History: Atrial Fibrillation, Chest Pain / Angina, Heart Failure, Diabetes Mellitus, Fibromyalgia, Hyperlipidemia, Hypertension, Pneumonia, Respiratory Disorder Additional Past Medical History / Comment(s): left outer thigh wound mostly healed, Left lung pneumonia/empyema, gout, chronic fibromyalgia, chronic lower back pain, degenerative arthritis, history of degenerative disc disease involving the lumbar spine, hypertension, hyperlipidemia, atrial fibrillation as the patient went into atrial fibrillation during her hospitalization for a left lower lobe pneumonia back in October 2017 and subsequently he converted back to normal sinus. He has chronic anxiety. NEUROPATHY History of Any Multi-Drug Resistant Organisms: None Reported Date of last positivie culture/infection: 08/17/24 MDRO Source:: sputum Past Surgical History: Back Surgery, Joint Replacement, Orthopedic Surgery Additional Past Surgical History / Comment(s): rt hip replacement, rt knee replacement, left knee surgery with metal, neck fusion, lower back surgery, traumatic amputation rt index finger, left index finger tip amputation from injury. I & D LT THIGH X 6, LUNG SURGERY, COLONOSCOPY Past Anesthesia/Blood Transfusion Reactions: Blood Transfusion Reaction Additional Past Anesthesia/Blood Transfusion Reaction / Comment(s): pt states some limited neck movement due to previous surgery, " I got degenerative bone disease from a blood transfusion", "I woke up in the middle of knee surgery" Past Psychological History: No Psychological Hx Reported Smoking Status: Former smoker Past Alcohol Use History: Daily Past Drug Use History: Marijuana - Past Family History Mother Family Medical History: No Reported History Additional Family Medical History / Comment(s): enlarged heart Father Family Medical History: No Reported History Additional Family Medical History / Comment(s): Father lived to be 101 yrs old. Medications and Allergies Home Medications Medication Instructions Recorded Confirmed Type Albuterol Sulfate [Albuterol 2 puff INHALATION RT-Q4H 06/05/20 12/06/24 History Sulfate Hfa] DULoxetine HCL [Cymbalta] 30 mg PO BID 06/05/20 12/06/24 History Pregabalin [Lyrica] 200 mg PO TID 06/05/20 12/06/24 History Milnacipran HCl [Savella] 100 mg PO BID 04/05/22 12/06/24 History Naproxen [Naprosyn] 500 mg PO BID 04/05/22 12/06/24 History tiZANidine [Zanaflex] 4 mg PO TID PRN 04/05/22 12/06/24 History Amitriptyline HCl [Elavil] 50 - 100 mg PO HS 02/25/24 12/06/24 History INSULIN ASPART (NovoLOG) [NovoLOG 5 unit SQ TID-W/MEALS 02/25/24 12/06/24 History (formulary)] Insulin Detemir (Levemir) [Levemir] 20 unit SQ BID 02/25/24 12/06/24 History Loratadine [Claritin] 10 mg PO DAILY 02/25/24 12/06/24 History Pramipexole Di-HCl [Mirapex] 0.75 mg PO HS 02/25/24 12/06/24 History traZODone HCL 150 mg PO HS 08/04/24 12/06/24 History Amiodarone [Cordarone] 200 mg PO DAILY #30 tab 08/13/24 12/06/24 Rx Apixaban [Eliquis] 5 mg PO BID #60 tab 08/13/24 12/06/24 Rx Aspirin 81 mg PO DAILY #30 tab 08/13/24 12/06/24 Rx Atorvastatin [Lipitor] 40 mg PO HS #30 tablet 08/13/24 12/06/24 Rx Dapagliflozin Propanediol [Farxiga] 10 mg PO DAILY #30 tablet 08/13/24 12/06/24 Rx Furosemide [Lasix] 40 mg PO BID #60 tablet 08/13/24 12/06/24 Rx Metoprolol Tartrate [Lopressor] 25 mg PO TID 08/16/24 12/06/24 History Losartan Potassium [Cozaar] 100 mg PO DAILY 12/06/24 12/06/24 History oxyCODONE HCL [Roxicodone] 15 mg PO TID 12/06/24 12/06/24 History Allergies Allergy/AdvReac Type Severity Reaction Status Date / Time morphine Allergy Itching Verified 12/06/24 09:37 Physical Exam Osteopathic Statement: *. No significant issues noted on an osteopathic structural exam other than those noted in the History and Physical/Consult. Vitals: Vital Signs Temp Pulse Pulse Resp BP Pulse Ox FiO2 12/06/24 11:26 95 18 120/86 97 12/06/24 11:25 98 12/06/24 11:15 106 H 12/06/24 08:46 112 H 12/06/24 08:27 108 H 12/06/24 07:43 98.7 F 105 H 20 146/89 97 12/06/24 06:29 106 H 18 96 12/06/24 05:41 101 H 18 146/89 94 L 12/06/24 04:17 40 12/06/24 03:26 96 16 137/84 100 12/06/24 01:14 92 16 115/63 100 12/06/24 01:01 40 12/06/24 00:58 98.5 F 112 H 22 98 12/06/24 00:05 80 16 102/63 99 12/05/24 22:40 78 16 87/43 99 12/05/24 22:38 40 12/05/24 22:20 50 12/05/24 22:17 50 12/05/24 21:40 18 12/05/24 21:31 77 20 139/97 90 L 12/05/24 20:14 98.6 F 79 18 126/78 94 L Intake and Output 12/05/24 12/06/24 12/06/24 22:59 06:59 14:59 Other: Weight 154.221 kg 154.221 kg No acute distress, oriented 3. No conversational dyspnea or overt respiratory distress. The patient was on room air. HEENT examination is grossly unremarkable. Mucous membranes are moist. No oral lesions. Neck supple. Full range of motion. No adenopathy thyromegaly or neck vein distention. Cardiovascular examination reveals regular rhythm rate. S1-S2 normal. No S3 or S4. No discernible murmur noted. Lungs reveal scattered bilateral rhonchi, and scattered wheezes. No crackles. Breath sounds equal. Abdomen obese, but soft. No masses or tenderness. Extremities are intact. No cyanosis or clubbing. Significant edema noted. Skin is without rash or lesion. Neurologic examination is brief but nonfocal. Results - Laboratory Findings CBC and BMP: 12/06/24 05:30 12/06/24 05:30 PT/INR, D-dimer PT 10.0 sec (10.0-12.5) 12/05/24 20:47 INR 0.9 (<1.2) 12/05/24 20:47 Abnormal lab findings: Abnormal Labs 12/05/24 12/05/24 12/05/24 20:47 20:47 21:34 WBC 12.6 H Neutrophils # 8.6 H VBG pH 7.30 L VBG pCO2 58 H Sodium BUN 32 H Creatinine 1.57 H Glucose 116 H POC Glucose (mg/dL) Alkaline Phosphatase Total Protein Albumin 12/06/24 12/06/24 12/06/24 05:30 05:30 05:30 WBC 16.0 H Neutrophils # 14.4 H VBG pH VBG pCO2 55 H Sodium 136 L BUN 29 H Creatinine 1.30 H Glucose 237 H POC Glucose (mg/dL) Alkaline Phosphatase 133 H Total Protein 6.2 L Albumin 3.4 L 12/06/24 12/06/24 07:16 11:44 WBC Neutrophils # VBG pH VBG pCO2 Sodium BUN Creatinine Glucose POC Glucose (mg/dL) 303 H 319 H Alkaline Phosphatase Total Protein Albumin - Diagnostic Findings Chest x-ray: image reviewed Assessment and Plan Assessment: Acute hypoxemic and hypercapnic respiratory failure likely multifactorial, in part related to COPD exacerbation, and possible pneumonia. Prior history of heavy tobacco use, causing COPD. History of congestive heart failure. History of atrial fibrillation. History of diabetes mellitus. History of hyperlipidemia. History of hypertension. History of fibromyalgia. History of gout. Chronic back pain and degenerative disc disease. Morbid obesity. Multiple other medical problems and comorbidities. Plan: Plan dated December 06, 2024. The patient is seen today in the emergency department, room 5. The patient was initially on BiPAP, with settings of 10/5, and 40%. When we saw the patient, he was on room air. He was talking up a storm, without any conversational dyspnea. The patient underwent bronchoscopy, with me, on August 24, 2024. The patient is on azithromycin and Rocephin. Viral screen was negative. He was coughing up green phlegm. Labs, x-rays, and all medications are reviewed. Will continue to follow the patient. Prognosis is certainly guarded. Procalcitonin level was pending. Dictation was produced using [employer] software. Please excuse any grammatical, word or spelling errors. Time with Patient: Greater than 30
[2024-12-06 16:32] LABS: Glucose,Whole Blood 378 mg/dL (70-110)
[2024-12-06 20:41] LABS: Glucose,Whole Blood 473 mg/dL (70-110)
[2024-12-06] MEDS: DULoxetine HCL 30 MG CAPSULE.DR PO SCH (22:03)
[2024-12-06] MEDS: guaiFENesin 600 MG TABLET.ER PO SCH (22:03)
[2024-12-06] MEDS: AMITRIPTYLINE HCL 50 MG TAB PO SCH (22:04)
[2024-12-06] MEDS: FUROSEMIDE 40 MG TAB PO SCH (22:05)
[2024-12-06] MEDS: APIXABAN 5 MG TAB PO SCH (22:05)
[2024-12-06] MEDS: traZODone HCL 50 MG TAB PO SCH (22:05)
[2024-12-06] MEDS: ATORVASTATIN 40 MG TAB PO SCH (22:05)
[2024-12-06] MEDS: INSULIN REGULAR 100 UNIT/ML VIAL (IM/SQ) SQ ONE (22:06)
[2024-12-07 06:21] LABS: Glucose,Whole Blood 346 mg/dL (70-110)
[2024-12-07] MEDS: ASPIRIN 81 MG PO SCH (09:21)
[2024-12-07] MEDS: LORATADINE 10 MG TAB PO SCH (09:22)
--- NOTE | 2024-12-07 11:19 | P.PN ---
Subjective This is a pleasant 54 years old male with past medical history of multiple medical problems as below Presents because of shortness of breath x 7 days duration associated with cough and greenish phlegm started yesterday but no chest pain. No specific GI/ symptom. No neurological complaint He smokes 3 to 5 cigarettes/day and he was counseled to quit and he agrees that he declines nicotine patch. No alcohol or illicit drugs. He is not on oxygen at home. He is has no fever on admission but he is tachycardic 106. CBC showing leukocytosis 12-16 and creatinine elevated 1.5, down to 1.3 with baseline 0.8-1.2. LFT were unremarkable. Troponin and INR were unremarkable. Influenza and COVID test were negative proBNP is 52 Alcohol level less than 10. Chest x-ray showing low lung volumes for generalized appearance of atelectasis more than pulmonary edema EKG showing sinus rhythm at 78. Patient started on IV Solu-Medrol and ceftriaxone and Zithromax 12/07 Patient feels better today His wheezing looks better today. No chest pain or coughing. Currently saturating 95 to 96% on room air. Patient looks anxious and he has pressure of talking which makes her heart rate probably go high. Patient leukocytosis could be secondary to her steroid effect Procalcitonin is negative at 0.06. Patient may not need antibiotics for now He is continued on IV Solu-Medrol but lower dose 60 mg down to 40 mg given his elevated sugar. He is on Lantus 20 units twice daily. Also he is on home dose of Eliquis 5 mg and Lasix 40 mg twice daily. Patient requests to increase his pain medication to 4 times a day. this is checked with the staff and asked what he was taking at home. Possible discharge soon once cleared by pulmonary service. Patient counseled about quit smoking and he agrees Review of systems CONSTITUTIONAL: No fever, no malaise, no fatigue. HEENT: No recent visual problems or hearing problems. Denied any sore throat. CARDIOVASCULAR: No orthopnea, PND, no palpitations, no syncope. HEMATOLOGICAL: Denies any bleeding or petechiae. GENITOURINARY: Denies any burning micturition, frequency, or urgency. MUSCULOSKELETAL/RHEUMATOLOGICAL: Denies any joint pain, swelling, or any muscle pain. ENDOCRINE: Denies any polyuria or polydipsia. Active Medications Generic Name Dose Route Start Last Admin Trade Name Kyleq PRN Reason Stop Dose Admin Albuterol/Ipratropium 3 ml 12/06/24 08:00 12/07/24 09:09 Ipratropium-Albuterol 3 Ml Neb INHALATION 3 ml RT-QID UZIEL Administration Albuterol/Ipratropium 3 ml 12/06/24 00:07 Ipratropium-Albuterol 3 Ml Neb INHALATION RT-Q2H PRN Shortness Of Breath Or Wheezing Amiodarone HCl 200 mg 12/06/24 09:00 12/07/24 09:20 Amiodarone 200 Mg Tab PO 200 mg DAILY UZIEL Administration Amitriptyline HCl 50 mg 12/06/24 21:00 12/06/24 22:04 Amitriptyline Hcl 50 Mg Tab PO 50 mg HS UZIEL Administration Apixaban 5 mg 12/06/24 21:00 12/07/24 09:22 Apixaban 5 Mg Tab PO 5 mg BID UZIEL Administration Protocol Aspirin 81 mg 12/07/24 09:00 12/07/24 09:21 Aspirin 81 Mg PO 81 mg DAILY UZIEL Administration Atorvastatin Calcium 40 mg 12/06/24 21:00 12/06/24 22:05 Atorvastatin 40 Mg Tab PO 40 mg HS UZIEL Administration Azithromycin 500 mg 12/06/24 09:00 12/07/24 09:20 Azithromycin 500 Mg Tab PO 12/08/24 09:01 500 mg DAILY UZIEL Administration Protocol Budesonide/Formoterol Fumarate 2 puff 12/06/24 08:00 12/07/24 09:09 Symbicort 160-4.5 Mcg Inhaler INHALATION 2 puff RT-BID UZIEL Administration Dapagliflozin 10 mg 12/06/24 09:00 12/07/24 09:21 Dapagliflozin Propanediol 10 Mg Tablet PO 10 mg DAILY UZIEL Administration Dextrose/Water 25 ml 12/06/24 07:01 Dextrose 50% Syringe 50 Ml IVP PER PROTOCOL PRN Hypoglycemia Protocol Dextrose/Water 50 ml 12/06/24 07:01 Dextrose 50% Syringe 50 Ml IVP PER PROTOCOL PRN Hypoglycemia Protocol Duloxetine HCl 30 mg 12/06/24 21:00 12/07/24 09:22 Duloxetine Hcl 30 Mg Capsule.Dr PO 30 mg BID UZIEL Administration Famotidine 20 mg 12/06/24 09:00 12/07/24 09:22 Famotidine 20 Mg/2 Ml Vial IV 20 mg Q12HR [facility] Administration Furosemide 40 mg 12/06/24 21:00 12/07/24 09:22 Furosemide 40 Mg Tab PO 40 mg BID [facility] Administration Guaifenesin 600 mg 12/06/24 21:00 12/07/24 09:22 Guaifenesin 600 Mg Tablet.Er PO 600 mg Q12HR [facility] Administration Ceftriaxone Sodium 2 gm/ 50 mls @ 100 mls/hr 12/06/24 09:00 12/07/24 09:33 Sodium Chloride IVPB 100 mls/hr Q24HR [facility] Administration Protocol Thiamine HCl 100 mg/ Sodium 51 mls @ 100 mls/hr 12/06/24 09:00 12/07/24 09:32 Chloride IVPB 100 mls/hr DAILY [facility] Administration Insulin Glargine 25 unit 12/07/24 21:00 Insulin Glargine (Lantus) 100 Unit/Ml Syr SQ BID@0700,2100 [facility] Insulin Human Lispro 5 unit 12/06/24 07:30 12/07/24 06:36 Insulin Lispro (Humalog) 100 Unit/Ml 10 Ml Vl SQ 5 unit TID-W/MEALS [facility] Administration Insulin Human Lispro 0 unit 12/06/24 07:30 12/07/24 06:37 Insulin Lispro (Humalog) 100 Unit/Ml 10 Ml Vl SQ 4 unit ACHS [facility] Administration Protocol Loratadine 10 mg 12/07/24 09:00 12/07/24 09:22 Loratadine 10 Mg Tab PO 10 mg DAILY [facility] Administration Methylprednisolone Sodium Succinate 40 mg 12/07/24 12:00 Methylprednisolone Sod Succi 40 Mg/Ml 1 Ml Vial IV Q6HR [facility] Metoprolol Tartrate 25 mg 12/06/24 10:00 12/07/24 09:21 Metoprolol Tartrate 25 Mg Tab PO 25 mg TID [facility] Administration Naloxone HCl 0.2 mg 12/06/24 00:07 Naloxone 0.4 Mg/Ml 1 Ml Vial IVP Q2M PRN Opioid Reversal Naproxen 500 mg 12/06/24 09:00 12/07/24 09:20 Naproxen 250 Mg Tab PO 500 mg BID [facility] Administration Non-Formulary Medication 0.75 mg 12/06/24 21:00 12/06/24 23:03 Pramipexole Di-Hcl [Mirapex] PO Not Given [facility] Oxycodone HCl 15 mg 12/06/24 11:14 12/07/24 09:26 Oxycodone Hcl 5 Mg Tab PO 15 mg TID PRN Administration Pain Pregabalin 200 mg 12/06/24 09:00 12/07/24 09:22 Pregabalin 100 Mg Cap PO 200 mg TID UZIEL Administration Trazodone HCl 150 mg 12/06/24 21:00 12/06/24 22:05 Trazodone Hcl 50 Mg Tab PO 150 mg HS UZIEL Administration Objective - Vital Signs Vital signs: Vital Signs Temp 98 F 12/07/24 08:00 Pulse 120 H 12/07/24 09:24 Resp 18 12/07/24 08:00 BP 165/98 12/07/24 08:00 Pulse Ox 95 12/07/24 09:10 FiO2 21 12/07/24 09:10 Intake & Output 12/06/24 12/07/24 12/07/24 18:59 06:59 18:59 Output Total 1700 Balance -1700 Weight 134 kg Output: Urine 1700 Other: # Voids 4 - Exam -GENERAL: The patient is alert and oriented x3, not in any acute distress. Well developed, well nourished. Obese HEENT: Pupils are round and equally reacting to light. EOMI. No scleral icterus. No conjunctival pallor. Normocephalic, atraumatic. No pharyngeal erythema. No thyromegaly. CARDIOVASCULAR: S1 and S2 present. No murmurs, rubs, or gallops. -PULMONARY: Chest is clear to auscultation, bilateral scattered wheezing , no crackles. ABDOMEN: Soft, nontender, nondistended, normoactive bowel sounds. No palpable organomegaly. MUSCULOSKELETAL: No joint swelling or deformity. EXTREMITIES: No cyanosis, clubbing, or pedal edema. NEUROLOGICAL: Gross neurological examination did not reveal any focal deficits. SKIN: No rashes. no petechiae. - Labs CBC & Chem 7: 12/06/24 05:30 12/06/24 05:30 Labs: Abnormal Lab Results - Last 24 Hours (Table) 12/06/24 12/06/24 12/06/24 Range/Units 11:44 16:30 20:39 POC Glucose (mg/dL) 319 H 378 H 473 H (70-110) mg/dL Hemoglobin A1c (<=6.0) % 12/07/24 12/07/24 Range/Units 06:19 06:59 POC Glucose (mg/dL) 346 H (70-110) mg/dL Hemoglobin A1c 7.0 H (<=6.0) % Assessment and Plan Assessment: Acute COPD exacerbation Possible mild acute tracheobronchitis secondary to viral infection, improved significantly Obesity with BMI of 39.3. Chronic kidney disease stage II. With mild acute kidney injury present on admission. History of atrial fibrillation CHF Diabetes mellitus Hypertension Hyperlipidemia History of respiratory disorder and left lung pneumonia/empyema. Plan: Continue with ceftriaxone and Zithromax Continue with the steroids Bronchodilator Pulmonary consult Labs and medication were reviewed.. Continue same treatment. Continue with symptomatic treatment. Resume home medication. Monitor labs and vitals. DVT and GI prophylaxis. Further recommendations as per clinical course of the patient DVT prophylaxis: Subcutaneous heparin GI Prophylaxis: Pepcid PT/OT: Pending Prognosis is guarded
[2024-12-07 11:40] LABS: Glucose,Whole Blood 352 mg/dL (70-110)
[2024-12-07] MEDS: INSULIN GLARGINE (LANTUS) 100 UNIT/ML SYR SQ ONE (12:41)
[2024-12-07] MEDS: methylPREDNISolone SOD SUCCI 40 MG/ML 1 ML VIAL IV SCH (12:41)
--- NOTE | 2024-12-07 13:19 | P.PN ---
Subjective Progress Note Date: 12/07/24 This is a 54-year-old male, who presented to the emergency department, on December 05, complaining of shortness of breath, lightheadedness, and weakness. He apparently stated to the ER physician, or some personnel in the emergency department, that he was having pain all over. The patient apparently was quite confused or delirious initially, although today when we saw him in room 5, in the emergency department, he was quite talkative, talking about various things including chronic back issues, a broken back, and the need for surgical procedure. The patient was initially placed on BiPAP, with settings of 10/5, and 40%. When we saw him he was on room air. His viral screen was negative. I saw him in the past, and did bronchoscopy on him back in August 2024. The patient was coughing up very purulent looking green phlegm. As mentioned, he was complaining of significant shortness of breath. The patient is a smoker. His history includes among other things, atrial fibrillation, heart failure, diabetes mellitus, fibromyalgia, hyperlipidemia, hypertension, pneumonia, empyema, gout, chronic low back pain, degenerative disc disease, among other things. The patient is a former heavy smoker, but apparently does not smoke currently. He has smoked marijuana in the past. Laboratory data includes a white count of 16, hemoglobin 14.8, hematocrit 45.8, and a platelet count of 272,000. Venous blood gas shows a CO2 of 55 and a pH of 7.32. Sodium 136, potassium 4.4, chlorides 103, CO2 26, anion gap 7, BUN 29, and creatinine 1.30. Glucose is 319. Albumin 3.4. Alcohol level less than 10. Viral screen was negative. Chest x-ray showed low lung volumes, with generalized hazy appearance, either secondary to atelectasis, or pulmonary edema. The patient's troponin was negative. And his N-terminal proBNP was only 52. We did put an order in for a procalcitonin level. The patient is seen today December 07, 2024 in follow-up on the regular medical floor. He is currently sitting up in the chair at the bedside. Awake and alert in no acute distress. Maintaining O2 saturations in the 90s on room air. He is breathing a bit easier today compared to yesterday. No fever or chills. He is continued on DuoNeb inhalations, Symbicort, Solu-Medrol. Remains on oral diuretics. Anticoagulated with Eliquis. Continued on ceftriaxone. Procalcitonin 0.06. Glucose 352. Hemoglobin A1c 7.0. Sputum culture pending. Objective - Vital Signs Vital signs: Vital Signs Temp 98 F 12/07/24 08:00 Pulse 120 H 12/07/24 09:24 Resp 18 12/07/24 08:00 BP 165/98 12/07/24 08:00 Pulse Ox 95 12/07/24 09:10 FiO2 21 12/07/24 09:10 Intake & Output 12/06/24 12/07/24 12/07/24 18:59 06:59 18:59 Output Total 1700 Balance -1700 Weight 134 kg Output: Urine 1700 Other: # Voids 4 - Exam GENERAL EXAM: Alert, obese, pleasant 54-year-old male, sitting up at the bedside, on room air, comfortable in no apparent distress. HEAD: Normocephalic. EYES: Normal reaction of pupils, equal size. NOSE: Clear with pink turbinates. THROAT: No erythema or exudates. NECK: No masses, no JVD. CHEST: No chest wall deformity. LUNGS: Equal air entry with few scattered rhonchi. CVS: S1 and S2 normal with no audible murmur, regular rhythm. ABDOMEN: No hepatosplenomegaly, normal bowel sounds, no guarding or rigidity. SPINE: No scoliosis or deformity SKIN: No rashes CENTRAL NERVOUS SYSTEM: No focal deficits, tone is normal in all 4 extremities. EXTREMITIES: There is 1+ peripheral edema. No clubbing, no cyanosis. Peripheral pulses are intact. - Labs CBC & Chem 7: 12/06/24 05:30 12/06/24 05:30 Labs: Abnormal Lab Results - Last 24 Hours (Table) 12/06/24 12/06/24 12/07/24 Range/Units 16:30 20:39 06:19 POC Glucose (mg/dL) 378 H 473 H 346 H (70-110) mg/dL Hemoglobin A1c (<=6.0) % 12/07/24 12/07/24 Range/Units 06:59 11:39 POC Glucose (mg/dL) 352 H (70-110) mg/dL Hemoglobin A1c 7.0 H (<=6.0) % Assessment and Plan Assessment: Acute hypoxemic and hypercapnic respiratory failure likely multifactorial, in part related to COPD exacerbation, and possible pneumonia. Procalcitonin negative Prior history of heavy tobacco use, causing COPD. History of congestive heart failure. History of atrial fibrillation. History of diabetes mellitus. History of hyperlipidemia. History of hypertension. History of fibromyalgia. History of gout. Chronic back pain and degenerative disc disease. Morbid obesity. Multiple other medical problems and comorbidities. Plan: The patient was seen and evaluated Labs and medications reviewed Remains stable and on room air Sputum culture pending Continued on ceftriaxone Continued on bronchodilators, steroids Continue oral diuretics Increase his activity as tolerated We will continue to follow I have personally seen and examined the patient, performed the documentation and the assessment and plan as written. Number of minutes spent on the visit: 10 Dictation was produced using [employer] dictation software. Please excuse any grammatical, word or spelling errors.
[2024-12-07 16:33] LABS: Glucose,Whole Blood 406 mg/dL (70-110)
[2024-12-07 21:36] LABS: Glucose,Whole Blood 341 mg/dL (70-110)
[2024-12-07] MEDS: INSULIN GLARGINE (LANTUS) 100 UNIT/ML SYR SQ SCH (22:19)
[2024-12-08 06:45] LABS: Glucose,Whole Blood 292 mg/dL (70-110)
[2024-12-08 11:36] LABS: African American GFR (CKD) >90 (>60 ml/min/1.73 sqM); Anion Gap 6 mmol/L; Blood Urea Nitrogen 35 mg/dL (9-20); Calcium 8.7 mg/dL (8.4-10.2); Carbon Dioxide 30 mmol/L (22-30); Chloride 96 mmol/L (98-107); Glucose 348 mg/dL (74-99); Non-African American GFR(CKD) >90 (>60 ml/min/1.73 sqM); Potassium 4.2 mmol/L (3.5-5.1); Sodium 132 mmol/L (137-145)
[2024-12-08 11:40] LABS: Glucose,Whole Blood 361 mg/dL (70-110)
--- NOTE | 2024-12-08 12:13 | P.PN ---
Subjective Progress Note Date: 12/08/24 This is a 54-year-old male, who presented to the emergency department, on December 05, complaining of shortness of breath, lightheadedness, and weakness. He apparently stated to the ER physician, or some personnel in the emergency department, that he was having pain all over. The patient apparently was quite confused or delirious initially, although today when we saw him in room 5, in the emergency department, he was quite talkative, talking about various things including chronic back issues, a broken back, and the need for surgical procedure. The patient was initially placed on BiPAP, with settings of 10/5, and 40%. When we saw him he was on room air. His viral screen was negative. I saw him in the past, and did bronchoscopy on him back in August 2024. The patient was coughing up very purulent looking green phlegm. As mentioned, he was complaining of significant shortness of breath. The patient is a smoker. His history includes among other things, atrial fibrillation, heart failure, diabetes mellitus, fibromyalgia, hyperlipidemia, hypertension, pneumonia, empyema, gout, chronic low back pain, degenerative disc disease, among other things. The patient is a former heavy smoker, but apparently does not smoke currently. He has smoked marijuana in the past. Laboratory data includes a white count of 16, hemoglobin 14.8, hematocrit 45.8, and a platelet count of 272,000. Venous blood gas shows a CO2 of 55 and a pH of 7.32. Sodium 136, potassium 4.4, chlorides 103, CO2 26, anion gap 7, BUN 29, and creatinine 1.30. Glucose is 319. Albumin 3.4. Alcohol level less than 10. Viral screen was negative. Chest x-ray showed low lung volumes, with generalized hazy appearance, either secondary to atelectasis, or pulmonary edema. The patient's troponin was negative. And his N-terminal proBNP was only 52. We did put an order in for a procalcitonin level. The patient is seen today December 07, 2024 in follow-up on the regular medical floor. He is currently sitting up in the chair at the bedside. Awake and alert in no acute distress. Maintaining O2 saturations in the 90s on room air. He is breathing a bit easier today compared to yesterday. No fever or chills. He is continued on DuoNeb inhalations, Symbicort, Solu-Medrol. Remains on oral diuretics. Anticoagulated with Eliquis. Continued on ceftriaxone. Procalcitonin 0.06. Glucose 352. Hemoglobin A1c 7.0. Sputum culture pending. The patient is seen today December 08, 2024 in follow-up on the regular medical floor. He is currently resting comfortably in bed. Awake and alert in no acute distress. Maintaining good O2 saturations in the 90s on room air. Normal saline at 40 mL/h. He is continued on DuoNeb inhalations, Symbicort, Solu- Medrol. Anticoagulated with Eliquis. Remains on oral diuretics. Sodium 132. Potassium 4.2. Bicarb 30. BUN 35. Creatinine 0.83. Glucose 348. Sputum culture pending. Remains on ceftriaxone. Procalcitonin negative. Objective - Vital Signs Vital signs: Vital Signs Temp 97.6 F 12/08/24 07:02 Pulse 100 12/08/24 11:50 Resp 18 12/08/24 07:02 BP 126/70 12/08/24 07:02 Pulse Ox 92 L 12/08/24 07:02 FiO2 21 12/07/24 09:10 Intake & Output 12/07/24 12/08/24 12/08/24 18:59 06:59 18:59 Intake Total 1180 Balance 1180 Weight 125.5 kg Intake: Oral 1180 Other: # Voids 1 3 - Exam GENERAL EXAM: Alert, obese, 54-year-old male, resting in bed, on room air, comfortable in no apparent distress. HEAD: Normocephalic. EYES: Normal reaction of pupils, equal size. NOSE: Clear with pink turbinates. THROAT: No erythema or exudates. NECK: No masses, no JVD. CHEST: No chest wall deformity. LUNGS: Equal air entry with few scattered rhonchi. CVS: S1 and S2 normal with no audible murmur, regular rhythm. ABDOMEN: No hepatosplenomegaly, normal bowel sounds, no guarding or rigidity. SPINE: No scoliosis or deformity SKIN: No rashes CENTRAL NERVOUS SYSTEM: No focal deficits, tone is normal in all 4 extremities. EXTREMITIES: There is 1+ peripheral edema. No clubbing, no cyanosis. Peripheral pulses are intact. - Labs CBC & Chem 7: 12/06/24 05:30 12/08/24 11:10 Labs: Abnormal Lab Results - Last 24 Hours (Table) 12/07/24 12/07/24 12/08/24 Range/Units 16:31 21:34 06:43 Sodium (137-145) mmol/L Chloride (98-107) mmol/L BUN (9-20) mg/dL Glucose (74-99) mg/dL POC Glucose (mg/dL) 406 H 341 H 292 H (70-110) mg/dL 12/08/24 12/08/24 Range/Units 11:10 11:39 Sodium 132 L (137-145) mmol/L Chloride 96 L (98-107) mmol/L BUN 35 H (9-20) mg/dL Glucose 348 H (74-99) mg/dL POC Glucose (mg/dL) 361 H (70-110) mg/dL Microbiology - Last 24 Hours (Table) 12/07/24 09:31 Gram Stain - Preliminary Sputum Assessment and Plan Assessment: Acute hypoxemic and hypercapnic respiratory failure likely multifactorial, in part related to COPD exacerbation, and possible pneumonia. Procalcitonin neg ative Prior history of heavy tobacco use, causing COPD. History of congestive heart failure. History of atrial fibrillation. History of diabetes mellitus. History of hyperlipidemia. History of hypertension. History of fibromyalgia. History of gout. Chronic back pain and degenerative disc disease. Morbid obesity. Multiple other medical problems and comorbidities. Plan: The patient was seen and evaluated Labs and medications reviewed Remains stable and on room air Sputum culture pending Continued on ceftriaxone Continued on bronchodilators Discontinue Solu-Medrol Initiated prednisone taper Continue oral diuretics Increase his activity as tolerated We will continue to follow I have personally seen and examined the patient, performed the documentation and the assessment and plan as written. Number of minutes spent on the visit: 10 Dictation was produced using [employer] software. Please excuse any grammatical, word or spelling errors.
[2024-12-08] MEDS: INSULIN LISPRO (HumaLOG) 100 UNIT/ML 10 mL VL SQ SCH (12:26)
[2024-12-08 16:51] LABS: Glucose,Whole Blood 375 mg/dL (70-110)
[2024-12-08] MEDS ORDERED: INSULIN GLARGINE (LANTUS) 100 UNIT/ML SYR SQ SCH (21:00)
--- NOTE | 2024-12-08 21:01 | P.PN ---
Subjective This is a pleasant 54 years old male with past medical history of multiple medical problems as below Presents because of shortness of breath x 7 days duration associated with cough and greenish phlegm started yesterday but no chest pain. No specific GI/ symptom. No neurological complaint He smokes 3 to 5 cigarettes/day and he was counseled to quit and he agrees that he declines nicotine patch. No alcohol or illicit drugs. He is not on oxygen at home. He is has no fever on admission but he is tachycardic 106. CBC showing leukocytosis 12-16 and creatinine elevated 1.5, down to 1.3 with baseline 0.8-1.2. LFT were unremarkable. Troponin and INR were unremarkable. Influenza and COVID test were negative proBNP is 52 Alcohol level less than 10. Chest x-ray showing low lung volumes for generalized appearance of atelectasis more than pulmonary edema EKG showing sinus rhythm at 78. Patient started on IV Solu-Medrol and ceftriaxone and Zithromax 12/07 Patient feels better today His wheezing looks better today. No chest pain or coughing. Currently saturating 95 to 96% on room air. Patient looks anxious and he has pressure of talking which makes her heart rate probably go high. Patient leukocytosis could be secondary to her steroid effect Procalcitonin is negative at 0.06. Patient may not need antibiotics for now He is continued on IV Solu-Medrol but lower dose 60 mg down to 40 mg given his elevated sugar. He is on Lantus 20 units twice daily. Also he is on home dose of Eliquis 5 mg and Lasix 40 mg twice daily. Patient requests to increase his pain medication to 4 times a day. this is checked with the staff and asked what he was taking at home. Possible discharge soon once cleared by pulmonary service. Patient counseled about quit smoking and he agrees 12/08 Patient wheezing improved significantly and currently placed on a prednisone 40 mg daily Patient also on ceftriaxone. Possibly patient has frequent acute t racheobronchitis although the patient has normal procalcitonin but he has a lot of purulent greenish phlegm in the emergency room therefore he was kept on antibiotic, today sputum culture was growing Staph aureus pending final result However clinically he is improving. His creatinine is normal He is kept on Eliquis Patient also has bilateral leg swelling related to his large body habitus and also he is on Lasix 40 mg twice daily Patient compliant to have some kind of orthopedic procedures for his lower extremities. He said he will go to follow-up with his PCP money counter prior for the surgical procedure I explained to him he needs to follow-up with Dr. Gaston as an outpatient prior to any procedure upon discharge and he agrees We will continue monitoring for now pending sputum culture results Objective - Vital Signs Vital signs: Vital Signs Temp 97.5 F L 12/08/24 13:42 Pulse 100 12/08/24 20:51 Resp 18 12/08/24 13:42 BP 139/78 12/08/24 13:42 Pulse Ox 94 L 12/08/24 13:42 FiO2 21 12/07/24 09:10 Intake & Output 12/08/24 12/08/24 12/09/24 06:59 18:59 06:59 Weight 125.5 kg Other: # Voids 3 2 - Exam -GENERAL: The patient is alert and oriented x3, not in any acute distress. Well developed, well nourished. Obese HEENT: Pupils are round and equally reacting to light. EOMI. No scleral icterus. No conjunctival pallor. Normocephalic, atraumatic. No pharyngeal erythema. No thyromegaly. CARDIOVASCULAR: S1 and S2 present. No murmurs, rubs, or gallops. -PULMONARY: Chest is clear to auscultation, bilateral scattered wheezing , no crackles. ABDOMEN: Soft, nontender, nondistended, normoactive bowel sounds. No palpable organomegaly. MUSCULOSKELETAL: No joint swelling or deformity. EXTREMITIES: No cyanosis, clubbing, or pedal edema. NEUROLOGICAL: Gross neurological examination did not reveal any focal deficits. SKIN: No rashes. no petechiae. - Labs CBC & Chem 7: 12/06/24 05:30 12/08/24 11:10 Labs: Abnormal Lab Results - Last 24 Hours (Table) 12/07/24 12/08/24 12/08/24 Range/Units 21:34 06:43 11:10 Sodium 132 L (137-145) mmol/L Chloride 96 L (98-107) mmol/L BUN 35 H (9-20) mg/dL Glucose 348 H (74-99) mg/dL POC Glucose (mg/dL) 341 H 292 H (70-110) mg/dL 12/08/24 12/08/24 Range/Units 11:39 16:50 Sodium (137-145) mmol/L Chloride (98-107) mmol/L BUN (9-20) mg/dL Glucose (74-99) mg/dL POC Glucose (mg/dL) 361 H 375 H (70-110) mg/dL Microbiology - Last 24 Hours (Table) 12/07/24 09:31 Gram Stain - Preliminary Sputum Sputum Culture - Preliminary Presumptive Staph aureus Assessment and Plan Assessment: Acute COPD exacerbation Possible mild acute tracheobronchitis secondary to viral infection, versus bacterial infection with sputum culture growing Staph aureus, improved significantly Obesity with BMI of 39.3. Chronic kidney disease stage II. With mild acute kidney injury present on admission. History of atrial fibrillation CHF Diabetes mellitus Hypertension Hyperlipidemia History of respiratory disorder and left lung pneumonia/empyema. Plan: Continue with ceftriaxone Follow-up sputum culture Continue with the steroids Bronchodilator Pulmonary consult Labs and medication were reviewed.. Continue same treatment. Continue with symptomatic treatment. Resume home medication. Monitor labs and vitals. DVT and GI prophylaxis. Further recommendations as per clinical course of the patient DVT prophylaxis: Subcutaneous heparin GI Prophylaxis: Pepcid PT/OT: Pending Prognosis is guarded
[2024-12-08 21:10] LABS: Glucose,Whole Blood 321 mg/dL (70-110)
[2024-12-08] MEDS: tiZANidine 4 MG TAB PO SCH (21:57)
[2024-12-08] MEDS: INSULIN GLARGINE (LANTUS) 100 UNIT/ML SYR SQ SCH (21:57)
[2024-12-09 06:14] LABS: Glucose,Whole Blood 251 mg/dL (70-110)
[2024-12-09] MEDS: predniSONE 20 MG TAB PO SCH (09:05)
[2024-12-09 11:43] LABS: Glucose,Whole Blood 163 mg/dL (70-110)
--- NOTE | 2024-12-09 11:45 | P.PN ---
Subjective Progress Note Date: 12/09/24 This is a 54-year-old male, who presented to the emergency department, on December 05, complaining of shortness of breath, lightheadedness, and weakness. He apparently stated to the ER physician, or some personnel in the emergency department, that he was having pain all over. The patient apparently was quite confused or delirious initially, although today when we saw him in room 5, in the emergency department, he was quite talkative, talking about various things including chronic back issues, a broken back, and the need for surgical procedure. The patient was initially placed on BiPAP, with settings of 10/5, and 40%. When we saw him he was on room air. His viral screen was negative. I saw him in the past, and did bronchoscopy on him back in August 2024. The patient was coughing up very purulent looking green phlegm. As mentioned, he was complaining of significant shortness of breath. The patient is a smoker. His history includes among other things, atrial fibrillation, heart failure, diabetes mellitus, fibromyalgia, hyperlipidemia, hypertension, pneumonia, empyema, gout, chronic low back pain, degenerative disc disease, among other things. The patient is a former heavy smoker, but apparently does not smoke currently. He has smoked marijuana in the past. Laboratory data includes a white count of 16, hemoglobin 14.8, hematocrit 45.8, and a platelet count of 272,000. Venous blood gas shows a CO2 of 55 and a pH of 7.32. Sodium 136, potassium 4.4, chlorides 103, CO2 26, anion gap 7, BUN 29, and creatinine 1.30. Glucose is 319. Albumin 3.4. Alcohol level less than 10. Viral screen was negative. Chest x-ray showed low lung volumes, with generalized hazy appearance, either secondary to atelectasis, or pulmonary edema. The patient's troponin was negative. And his N-terminal proBNP was only 52. We did put an order in for a procalcitonin level. The patient is seen today December 07, 2024 in follow-up on the regular medical floor. He is currently sitting up in the chair at the bedside. Awake and alert in no acute distress. Maintaining O2 saturations in the 90s on room air. He is breathing a bit easier today compared to yesterday. No fever or chills. He is continued on DuoNeb inhalations, Symbicort, Solu-Medrol. Remains on oral diuretics. Anticoagulated with Eliquis. Continued on ceftriaxone. Procalcitonin 0.06. Glucose 352. Hemoglobin A1c 7.0. Sputum culture pending. The patient is seen today December 08, 2024 in follow-up on the regular medical floor. He is currently resting comfortably in bed. Awake and alert in no acute distress. Maintaining good O2 saturations in the 90s on room air. Normal saline at 40 mL/h. He is continued on DuoNeb inhalations, Symbicort, Solu- Medrol. Anticoagulated with Eliquis. Remains on oral diuretics. Sodium 132. Potassium 4.2. Bicarb 30. BUN 35. Creatinine 0.83. Glucose 348. Sputum culture pending. Remains on ceftriaxone. Procalcitonin negative. The patient is seen today December 09, 2024 in follow-up on the regular medical floor. He is awake and alert in no acute distress. Maintaining O2 saturations in the 90s on room air. Resting comfortably in bed. He remains on DuoNeb inhalations, Symbicort, prednisone taper. He remains on oral diuretics. He remains on ceftriaxone. His sputum culture is now showing methicillin-resistant Staph aureus. Objective - Vital Signs Vital signs: Vital Signs Temp 97.6 F 12/09/24 07:00 Pulse 96 12/09/24 09:23 Resp 16 12/09/24 07:00 BP 132/77 12/09/24 07:00 Pulse Ox 95 12/09/24 07:00 FiO2 21 12/07/24 09:10 Intake & Output 12/08/24 12/09/24 12/09/24 18:59 06:59 18:59 Weight 113.5 kg Other: Voiding Method Toilet Toilet # Voids 2 20 - Exam GENERAL EXAM: Alert, obese, pleasant 54-year-old male, on room air, comfortable in no apparent distress. HEAD: Normocephalic. EYES: Normal reaction of pupils, equal size. NOSE: Clear with pink turbinates. THROAT: No erythema or exudates. NECK: No masses, no JVD. CHEST: No chest wall deformity. LUNGS: Equal air entry with few scattered rhonchi. CVS: S1 and S2 normal with no audible murmur, regular rhythm. ABDOMEN: No hepatosplenomegaly, normal bowel sounds, no guarding or rigidity. SPINE: No scoliosis or deformity SKIN: No rashes CENTRAL NERVOUS SYSTEM: No focal deficits, tone is normal in all 4 extremities. EXTREMITIES: There is 1+ peripheral edema. No clubbing, no cyanosis. Peripheral pulses are intact. - Labs CBC & Chem 7: 12/06/24 05:30 12/08/24 11:10 Labs: Abnormal Lab Results - Last 24 Hours (Table) 12/08/24 12/08/24 12/08/24 Range/Units 11:39 16:50 21:08 POC Glucose (mg/dL) 361 H 375 H 321 H (70-110) mg/dL 12/09/24 Range/Units 06:13 POC Glucose (mg/dL) 251 H (70-110) mg/dL Microbiology - Last 24 Hours (Table) 12/07/24 09:31 Gram Stain - Final Sputum Sputum Culture - Final Methicillin resist S. aureus Assessment and Plan Assessment: Acute hypoxemic and hypercapnic respiratory failure likely multifactorial, in part related to COPD exacerbation, and possible pneumonia. Sputum culture showing MRSA Previous history of MRSA pneumonia Prior history of heavy tobacco use, causing COPD History of congestive heart failure History of atrial fibrillation History of diabetes mellitus History of hyperlipidemia History of hypertension History of fibromyalgia History of gout Chronic back pain and degenerative disc disease Morbid obesity Multiple other medical problems and comorbidities Plan: The patient was seen and evaluated Medications reviewed Remains stable and on room air Sputum culture showing MRSA Could be discharged home on Zyvox Bactrim if unable to afford the Zyvox Continue his home pulmonary medications Complete a prednisone taper Follow-up in our office in 1 week I have personally seen and examined the patient, performed the documentation and the assessment and plan as written. Number of minutes spent on the visit: 10 Dictation was produced using [employer] software. Please excuse any grammatical, word or spelling errors.
[2024-12-09 15:33] VITALS: BP 106/63; RESP 18; TEMP 98.5
[2024-12-09 17:04] LABS: Glucose,Whole Blood 321 mg/dL (70-110)
[2024-12-09] MEDS: SULFAMETHOX-TMP 800-160MG 1 EACH TAB PO SCH ×2 (17:21→18:02)
[2024-12-09 17:40] VITALS: PULSE 92
--- NOTE | 2024-12-09 20:03 | P.DS ---
Providers Date of admission: 12/06/24 00:08 Attending physician: Sol Sanchez Consults: 12/06/24 05:27 Consult Physician Routine Consulting Provider: Braden Gaston Consult Reason/Comments: Dyspnea. Do you want consulting provider notified?: Yes Primary care physician: Patric Granda [place] [facility] Course: Diagnoses: Acute COPD exacerbation Possible mild acute tracheobronchitis secondary to MRSA Obesity with BMI of 39.3. Acute kidney injury, present on admission. Resolved Chronic kidney disease stage II. With mild acute kidney injury present on admission. History of atrial fibrillation CHF, no acute exacerbation Diabetes mellitus with hyperglycemia Hypertension Hyperlipidemia History of respiratory disorder and left lung pneumonia/empyema. Hospital course: This is a pleasant 54 years old male with past medical history of multiple medical problems as below Presents because of shortness of breath x 7 days duration associated with cough and copious greenish phlegm started 1 day earlier but no chest pain. Patient was found to have acute bronchitis and acute tracheobronchitis and acute COPD exacerbation and sputum culture was growing MRSA. Patient was treated with IV steroids and his symptoms significantly improved with the steroids as well as antibiotics ceftriaxone. On the day of discharge he has mild dyspnea, mild wheezing no chest pain, cough is sporadic and no phlegm. He was saturating well on room air. No exertional dyspnea. He is agreeable to go home. No other /GI symptom. His sputum culture was growing MRSA. Which was sensitive to Zyvox but because of drug-drug interaction and cannot be used. Therefore second choice was Bactrim recommended by clinical research associate as well. Patient will be discharged on Bactrim x 7 days, patient informed and he agree risk of Bactrim including nephrotoxicity and agranulocytosis are explained for him and understandable words and he verbalized understanding and acceptance, also we instructed the patient to check his blood test if possible within 2 to 3 days with his PCP and he agrees While he has been discharged on steroids he will require higher dose of insulin and this was explained for him in details. Patient has glucometer and he was advised to monitor his glucose closely 4 times a day, written instruction also provided. Patient also confirms to me he has Eliquis and aspirin at home. He confirms to me has a glucometer at home. Patient informed to hold losartan upon discharge and to check his blood pressure with his PCP, as his blood pressure was on the low side upon discharge and he agrees. Patient was instructed to DC Naprosyn upon discharge to decrease the risk of nephrotoxicity and he agrees Patient get up and go test is normal. Patient denies any other new complaints. Patient does not want to wait till tomorrow and he wants to go home today. Patient was cleared for discharge by pulmonary service. Problems and management plan were discussed with the patient and he verbalized understanding and acceptance Patient was found stable and can be discharged home in guarded prognosis however he needs follow-up as an outpatient. Patient was instructed to follow up with PCP Dr. Granda within one week and patient agrees Patient was instructed to follow-up with Dr. Gaston in 1 week and he agrees, he needs to see [employer] in 7 to 10 days for preop evaluation as patient planned to have orthopedic surgery as an outpatient per previous arrangement prior to hospitalization as he states. The contact information for [employer] provided for him upon discharge upon his request Physical exam -Gen: patient is a AAOx3, no distress. Obese CVS: S1-S2, RRR, no murmur -Lungs: B/L CTA, mild scattered wheezing significantly improved. Breathing quietly, no accessory muscles. Can finish his sentence. On room air Abdomen: soft, no distention, no tenderness, positive bowel sounds Extremity: no leg edema or induration Time spent more than 35 minutes Patient Condition at Discharge: Serious Plan - Discharge Summary New Discharge Prescriptions: New Famotidine [Pepcid] 20 mg PO BID 10 Days #20 tablet INSULIN ASPART (NovoLOG) [NovoLOG (formulary)] 10 unit SQ AC-TID 30 Days #10 ml Sulfamethox-Tmp 800-160Mg [Bactrim DS 800-160 mg] 1 tab PO Q12HR 7 Days #13 tab predniSONE 0 mg PO DIRECTED #26 tab Insulin Detemir (Levemir) [Levemir] 25 unit SQ BID #10 ml Continue Albuterol Sulfate [Albuterol Sulfate Hfa] 2 puff INHALATION RT-Q4H DULoxetine HCL [Cymbalta] 30 mg PO BID Pregabalin [Lyrica] 200 mg PO TID Milnacipran HCl [Savella] 100 mg PO BID Loratadine [Claritin] 10 mg PO DAILY Amitriptyline HCl [Elavil] 50 - 100 mg PO HS Pramipexole Di-HCl [Mirapex] 0.75 mg PO HS traZODone HCL 150 mg PO HS Amiodarone [Cordarone] 200 mg PO DAILY #30 tab Furosemide [Lasix] 40 mg PO BID #60 tablet Metoprolol Tartrate [Lopressor] 25 mg PO TID oxyCODONE HCL [Roxicodone] 15 mg PO TID tiZANidine [Zanaflex] 4 mg PO TID PRN PRN Reason: Muscle Spasm Aspirin 81 mg PO DAILY #30 tab Apixaban [Eliquis] 5 mg PO BID #60 tab Dapagliflozin Propanediol [Farxiga] 10 mg PO DAILY #30 tablet Atorvastatin [Lipitor] 40 mg PO HS #30 tablet Discontinued Insulin Detemir (Levemir) [Levemir] 20 unit SQ BID INSULIN ASPART (NovoLOG) [NovoLOG (formulary)] 5 unit SQ TID-W/MEALS Naproxen [Naprosyn] 500 mg PO BID Losartan Potassium [Cozaar] 100 mg PO DAILY Discharge Medication List Albuterol Sulfate [Albuterol Sulfate Hfa] 2 puff INHALATION RT-Q4H 06/05/20 [History] DULoxetine HCL [Cymbalta] 30 mg PO BID 06/05/20 [History] Pregabalin [Lyrica] 200 mg PO TID 06/05/20 [History] Milnacipran HCl [Savella] 100 mg PO BID 04/05/22 [History] tiZANidine [Zanaflex] 4 mg PO TID PRN 04/05/22 [History] Amitriptyline HCl [Elavil] 50 - 100 mg PO HS 02/25/24 [History] Loratadine [Claritin] 10 mg PO DAILY 02/25/24 [History] Pramipexole Di-HCl [Mirapex] 0.75 mg PO HS 02/25/24 [History] traZODone HCL 150 mg PO HS 08/04/24 [History] Amiodarone [Cordarone] 200 mg PO DAILY #30 tab 08/13/24 [Rx] Apixaban [Eliquis] 5 mg PO BID #60 tab 08/13/24 [Rx] Aspirin 81 mg PO DAILY #30 tab 08/13/24 [Rx] Atorvastatin [Lipitor] 40 mg PO HS #30 tablet 08/13/24 [Rx] Dapagliflozin Propanediol [Farxiga] 10 mg PO DAILY #30 tablet 08/13/24 [Rx] Furosemide [Lasix] 40 mg PO BID #60 tablet 08/13/24 [Rx] Metoprolol Tartrate [Lopressor] 25 mg PO TID 08/16/24 [History] oxyCODONE HCL [Roxicodone] 15 mg PO TID 12/06/24 [History] Famotidine [Pepcid] 20 mg PO BID 10 Days #20 tablet 12/09/24 [Rx] INSULIN ASPART (NovoLOG) [NovoLOG (formulary)] 10 unit SQ AC-TID 30 Days #10 ml 12/09/24 [Rx] Insulin Detemir (Levemir) [Levemir] 25 unit SQ BID #10 ml 12/09/24 [Rx] Sulfamethox-Tmp 800-160Mg [Bactrim DS 800-160 mg] 1 tab PO Q12HR 7 Days #13 tab 12/09/24 [Rx] predniSONE 0 mg PO DIRECTED #26 tab 12/09/24 [Rx] Follow up Appointment(s)/Referral(s): Patric Granda DO [Primary Care Provider] - 1-2 days Braden Gaston DO [Doctor of Osteopathic Medicine] - 1 Week Mario Vincent MD [STAFF PHYSICIAN] - 10 Days Activity/Diet/Wound Care/Special Instructions: satellite manager faxed a new order for a glucometer and testing supplies to [facility]. Please call them if you do not receive the agreement in the mail within 3 days of discharge: [phone]. Low carbohydrate diet 1800 kcal/day Activity is restricted till you see your doctor We recommend to check your glucose 4 times a day, before each meal and at bedtime, keep the results in a log book and bring them to your doctor on your appointment date If your glucose less than 70 or more than 500 then come to emergency room We recommend to repeat your blood test with your doctor 3 days including basic metabolic panel and complete blood count Discharge Disposition: HOME SELF-CARE
== END 2024-12-09 18:22 | disposition home or self-care (01) | DRG 140 ==
LOC: EC 20:07 → 3SCARD 12-06 00:08 → 5NMEDONC 12-06 10:57 → 4SSUR 12-06 14:03
PROVIDERS: ADMIT Hospitalist; ATTEND Hospitalist
PROC: 5A09457 Assistance with Respiratory Ventilation, 24-96 Consecutive Hours, Continuous Positive Airway Pressure (ICD-10-PCS; principal; 2024-12-06)
DX: J44.1 Chronic obstructive pulmonary disease with (acute) exacerbation (principal); J44.0 Chronic obstructive pulmonary disease with (acute) lower respiratory infection; Z68.39 Body mass index [BMI] 39.0-39.9, adult; N17.9 Acute kidney failure, unspecified; N18.2 Chronic kidney disease, stage 2 (mild); E11.22 Type 2 diabetes mellitus with diabetic chronic kidney disease; I13.0 Hypertensive heart and chronic kidney disease with heart failure and stage 1 through stage 4 chronic kidney disease, or unspecified chronic kidney disease; E11.65 Type 2 diabetes mellitus with hyperglycemia; I50.9 Heart failure, unspecified; I48.91 Unspecified atrial fibrillation; J20.9 Acute bronchitis, unspecified; F17.200 Nicotine dependence, unspecified, uncomplicated; J96.01 Acute respiratory failure with hypoxia; J96.02 Acute respiratory failure with hypercapnia; E78.5 Hyperlipidemia, unspecified; M79.7 Fibromyalgia; M10.9 Gout, unspecified; G89.29 Other chronic pain; M54.9 Dorsalgia, unspecified; E66.01 Morbid (severe) obesity due to excess calories; Z96.641 Presence of right artificial hip joint; B95.62 Methicillin resistant Staphylococcus aureus infection as the cause of diseases classified elsewhere; Z79.4 Long term (current) use of insulin; Z79.899 Other long term (current) drug therapy; Z79.82 Long term (current) use of aspirin; Z88.5 Allergy status to narcotic agent; Z96.651 Presence of right artificial knee joint; Z79.01 Long term (current) use of anticoagulants; Z79.84 Long term (current) use of oral hypoglycemic drugs; Z86.14 Personal history of Methicillin resistant Staphylococcus aureus infection; Z89.021 Acquired absence of right finger(s); Z89.022 Acquired absence of left finger(s)
CPT/HCPCS: 36415; 71046; 80048; 80053; 80320; 82803; 83036; 83605; 83880; 84145; 84484; 85025; 85610; 85730; 87070; 87077; 87186; 87205; 87636; 93005; 94640; 94660; 94760; 96361; 96365; 96366; 96367; 96372; 96375; 96376; 99291

== ENCOUNTER 2025-02-22 12:27 | Inpatient (IN) | payer OTHER ==
--- NOTE | 2025-02-22 13:13 | ED ---
Extremity Problem HPI - General Chief complaint: Extremity Problem,Nontraumatic Stated complaint: Left Leg Pain/Swollen Feet Time Seen by Provider: 02/22/25 13:07 Source: patient, RN notes reviewed Mode of arrival: wheelchair Limitations: no limitations - History of Present Illness Initial comments: This is a 55-year-old male who presents to the emergency department for left leg pain. Pain goes from his knee down to his foot. He does note that when he goes to stand up the pain gets substantially worse. Currently taking oxycodone for pain relief, however this has not been effectively managing his current pain or his chronic pain. He has also noticed increased swelling in both of his legs, worse on the left-hand side. He does have a history of cellulitis in that leg and is concerned about this recurring. He is on Eliquis for A-fib. Denies any history of blood clots. Denies any chest pain or shortness of breath. MD Complaint: extremity pain, extremity swelling - Related Data Home Medications Medication Instructions Recorded Confirmed Albuterol Sulfate [Albuterol 2 puff INHALATION RT-Q6H PRN 06/05/20 02/22/25 Sulfate Hfa] Pregabalin [Lyrica] 200 mg PO BID 06/05/20 02/22/25 Milnacipran HCl [Savella] 50 mg PO BID 04/05/22 02/22/25 tiZANidine [Zanaflex] 4 mg PO HS 04/05/22 02/22/25 Amitriptyline HCl [Elavil] 100 mg PO HS 02/25/24 02/22/25 Loratadine [Claritin] 10 mg PO DAILY 02/25/24 02/22/25 Pramipexole Di-HCl [Mirapex] 0.75 mg PO HS 02/25/24 02/22/25 Metoprolol Tartrate [Lopressor] 25 mg PO TID 08/16/24 02/22/25 Atorvastatin [Lipitor] 40 mg PO DAILY 02/22/25 02/22/25 INSULIN ASPART (NovoLOG) [NovoLOG 20 unit SQ AC-TID 02/22/25 02/22/25 (formulary)] oxyCODONE ER [OxyCONTIN] 10 mg PO Q12HR 02/22/25 02/22/25 oxyCODONE-APAP 10-325MG [Percocet 1 tab PO QID 02/22/25 02/22/25 10-325 mg] Previous Rx's Medication Instructions Recorded Amiodarone [Cordarone] 200 mg PO DAILY #30 tab 08/13/24 Apixaban [Eliquis] 5 mg PO BID #60 tab 08/13/24 Aspirin 81 mg PO DAILY #30 tab 08/13/24 Furosemide [Lasix] 40 mg PO BID #60 tablet 08/13/24 Famotidine [Pepcid] 20 mg PO BID 10 Days #20 tablet 12/09/24 Insulin Detemir (Levemir) [Levemir] 25 unit SQ BID #10 ml 12/09/24 Allergies Allergy/AdvReac Type Severity Reaction Status Date / Time morphine Allergy Itching Verified 02/22/25 17:10 Review of Systems ROS Statement: Those systems with pertinent positive or pertinent negative responses have been documented in the HPI. ROS Other: All systems not noted in ROS Statement are negative. Past Medical History Past Medical History: Atrial Fibrillation, Chest Pain / Angina, Heart Failure, Diabetes Mellitus, Fibromyalgia, Hyperlipidemia, Hypertension, Pneumonia, Respiratory Disorder Additional Past Medical History / Comment(s): left outer thigh wound mostly healed, Left lung pneumonia/empyema, gout, chronic fibromyalgia, chronic lower back pain, degenerative arthritis, history of degenerative disc disease involving the lumbar spine, hypertension, hyperlipidemia, atrial fibrillation as the patient went into atrial fibrillation during her hospitalization for a left lower lobe pneumonia back in October 2017 and subsequently he converted back to normal sinus. He has chronic anxiety. NEUROPATHY History of Any Multi-Drug Resistant Organisms: MRSA, Other MDRO Date of last positivie culture/infection: 12/07/24 MDRO Source:: sputum / legs Past Surgical History: Back Surgery, Joint Replacement, Orthopedic Surgery Additional Past Surgical History / Comment(s): rt hip replacement, rt knee replacement, left knee surgery with metal, neck fusion, lower back surgery, traumatic amputation rt index finger, left index finger tip amputation from injury. I & D LT THIGH X 6, LUNG SURGERY, COLONOSCOPY Past Anesthesia/Blood Transfusion Reactions: Blood Transfusion Reaction Additional Past Anesthesia/Blood Transfusion Reaction / Comment(s): pt states some limited neck movement due to previous surgery, " I got degenerative bone disease from a blood transfusion", "I woke up in the middle of knee surgery" Past Psychological History: No Psychological Hx Reported Smoking Status: Current every day smoker Past Alcohol Use History: None Reported Past Drug Use History: Marijuana - Past Family History Mother Family Medical History: No Reported History Additional Family Medical History / Comment(s): enlarged heart Father Family Medical History: No Reported History Additional Family Medical History / Comment(s): Father lived to be 101 yrs old. General Exam Limitations: no limitations General appearance: alert, in no apparent distress Head exam: Present: atraumatic, normocephalic, normal inspection Respiratory exam: Present: normal lung sounds bilaterally. Absent: respiratory distress, wheezes, rales, rhonchi, stridor Cardiovascular Exam: Present: regular rate, normal rhythm Extremities exam: Present: other (Swelling to the bilateral lower extremities, worse on the left with overlying tenderness and erythema.) Neurological exam: Present: alert, oriented X3, CN II-XII intact Psychiatric exam: Present: normal affect, normal mood Course Vital Signs 02/22/25 02/22/25 02/22/25 12:29 13:47 15:00 Temperature 97.4 F L Pulse Rate 91 94 91 Pulse Rate [ Pulse Oximetery ] Respiratory 18 18 16 Rate Blood Pressure 124/89 106/83 151/119 Blood Pressure [Right Arm] O2 Sat by Pulse 96 95 95 Oximetry 02/22/25 02/22/25 02/22/25 16:45 18:44 21:52 Temperature 97.7 F Pulse Rate 92 95 91 Pulse Rate [ Pulse Oximetery ] Respiratory 20 18 18 Rate Blood Pressure 160/101 148/96 131/86 Blood Pressure [Right Arm] O2 Sat by Pulse 95 97 99 Oximetry 02/22/25 02/23/25 02/23/25 23:23 01:13 02:00 Temperature 97.6 F Pulse Rate 89 Pulse Rate [ 89 89 Pulse Oximetery ] Respiratory 16 18 Rate Blood Pressure 160/96 Blood Pressure 145/87 [Right Arm] O2 Sat by Pulse 97 94 L Oximetry Medical Decision Making - Medical Decision Making This is a 55-year-old male who presents to the emergency department for leg pain. Was pt. sent in by a medical professional or institution? @ -No Did you speak to anyone other than the patient for history? @ -No Did you review nursing and triage notes? @ -Yes, and I agree, it is accurate with regards to the patient's symptoms. Were old charts reviewed? @ -No Differential Diagnosis? @ -Differential Musculoskeletal Muscular strain, contusion, ligament sprain, fracture, arthritis, septic arthritis, bursitis, cellulitis, muscle spasm, nerve compression, DVT, arterial occlusion, herpes zoster, electrolyte abnormality, tumor.... This is not meant to be in all inclusive list EKG interpreted by me (3pts min.)? @ -Not obtained X-rays interpreted by me (1pt min.)? @ -Not obtained CT interpreted by me (1pt min.)? @ -CT scan of the left lower extremity obtained. My interpretation identifies no acute fractures. U/S interpreted by me (1pt. min.)? @ -Duplex ultrasound of the left lower extremity obtained. My interpretation identifies no evidence of a DVT. What testing was considered but not performed? (CT, X-rays, U/S, labs)? Why? @ -None What meds were considered but not given? Why? @ -None Did you discuss the management of the patient with other professionals? @ -Yes, Dr. Sanchez, who accepts the patient for admission. Did you reconcile home meds? @ -Yes Was smoking cessation discussed for >3mins.? @ -No Was critical care preformed (if so, how long)? @ -No Were there social determinants of health that impacted care today? How? (Homelessness, low income, unemployed, alcoholism, drug addiction, transportation, low edu. Level, literacy, decrease access to med. care, usp, rehab)? @ -No Was there de-escalation of care discussed even if they declined? (Discuss DNR or withdrawal of care, Hospice)? @ -No What co-morbidities impacted this encounter? (DM, HTN, Smoking, COPD, CAD, Cancer, CVA, Hep., AIDS, mental health diagnosis, sleep apnea, morbid obesity)? @ -DM, fibromyalgia Was patient admitted / discharged? @ -Admitted. Lab work unremarkable. Duplex ultrasound of the left lower extremity obtained revealing no evidence of a DVT or other acute process. Patient continued to be in a severe amount of pain and a CT scan of the left lower extremity was subsequently obtained. This revealed diffuse edema in the leg from the knee to the ankle without discrete fluid collection or abscess. He had a fair amount of edema on exam with mild erythema. Symptoms could be related to infection, however laboratory studies at this point are not necessarily consistent with that. Symptoms could also be worsened by dependent edema. I had discussed discharged home with antibiotics and outpatient follow- up. However, patient still unable to ambulate well or put much of any weight on his leg and did not feel comfortable going home. Patient subsequently admitted to medicine for intractable leg pain with dependent edema and possible cellulitis. Blood culture obtained. He was started on vancomycin and cefepime for potential cellulitic component. 40mg IV Lasix administered due to the edema. Consult placed to orthopedics regarding intractable leg pain as well. Case discussed with ED attending Dr. Ace. Undiagnosed new problem with uncertain prognosis? @ -None Drug Therapy requiring intensive monitoring for toxicity (Heparin, Nitro, Insulin, Cardizem)? @ -None Were any procedures done? @ -None Diagnosis/symptom? @ -Intractable leg pain, dependent edema, cellulitis Acute, or Chronic, or Acute on Chronic? @ -Acute Uncomplicated (without systemic symptoms) or Complicated (systemic symptoms)? @ -Uncomplicated Side effects of treatment? @ -None Exacerbation, Progression, or Severe Exacerbation] @ -Not applicable Poses a threat to life or bodily function? @ -Yes, patient unable to ambulate - Lab Data Result diagrams: 02/22/25 13:23 02/22/25 13:23 Lab Results 02/22/25 02/22/25 02/22/25 Range/Units 13:23 13:23 13:23 WBC 9.43 (4.50-10.00) 10*3/uL RBC 4.85 (4.40-5.60) 10*6/uL Hgb 15.3 (13.0-17.0) g/dL Hct 44.1 (39.6-50.0) % MCV 90.9 (80.0-97.0) fL MCH 31.5 (27.0-32.0) pg MCHC 34.7 (32.0-37.0) g/dL Plt Count 313 (140-440) 10*3/uL MPV 10.7 (9.5-12.2) fL Immature Gran % (Auto) 0.4 % Neutrophils % 63.2 % Lymphocytes % 25.2 % Monocytes % 7.1 % Eosinophils % 2.9 % Basophils % 1.2 % Immature Gran # 0.04 (0.00-0.04) 10*3/uL Neutrophils # 5.96 (1.80-7.70) 10*3/uL Lymphocytes # 2.38 (0.90-5.00) 10*3/uL Monocytes # 0.67 (0.20-1.00) 10*3/uL Eosinophils # 0.27 (0.04-0.35) 10*3/uL Basophils # 0.11 H (0.00-0.10) 10*3/uL Sodium 140 (137-145) mmol/L Potassium 3.5 (3.5-5.1) mmol/L Chloride 102 (98-107) mmol/L Carbon Dioxide 29 (22-30) mmol/L Anion Gap 9 mmol/L BUN 14 (9-20) mg/dL Creatinine 1.12 (0.66-1.25) mg/dL Est GFR (CKD-EPI)AfAm 85 (>60 ml/min/1.73 sqM) Est GFR (CKD-EPI)NonAf 74 (>60 ml/min/1.73 sqM) Glucose 113 H (74-99) mg/dL Plasma Lactic Acid Jase 1.6 (0.7-2.0) mmol/L Calcium 9.5 (8.4-10.2) mg/dL Magnesium 1.7 (1.6-2.3) mg/dL Total Bilirubin 1.0 (0.2-1.3) mg/dL AST 21 (17-59) U/L ALT 16 (4-49) U/L Alkaline Phosphatase 112 (38-126) U/L NT-Pro-B Natriuret Pep 33 pg/mL Total Protein 7.0 (6.3-8.2) g/dL Albumin 4.3 (3.5-5.0) g/dL - Radiology Data Radiology results: report reviewed, image reviewed Disposition Clinical Impression: Dependent edema, Intractable pain, Cellulitis Disposition: ADMITTED IP TO THIS HOSP
[2025-02-22] MEDS: HYDROmorphone 1 MG/ML 1 ML SYRINGE IVP STA ×2 (13:49→15:10)
[2025-02-22 13:53] LABS: Basophils # (A) 0.11 10*3/uL (0.00-0.10); Basophils % (A) 1.2 %; Eosinophils # (A) 0.27 10*3/uL (0.04-0.35); Eosinophils % (A) 2.9 %; HCT 44.1 % (39.6-50.0); HGB 15.3 g/dL (13.0-17.0); Lymphocytes # (A) 2.38 10*3/uL (0.90-5.00); Lymphocytes % (A) 25.2 %; MCH 31.5 pg (27.0-32.0); MCHC 34.7 g/dL (32.0-37.0); MCV 90.9 fL (80.0-97.0); Mean Platelet Volume 10.7 fL (9.5-12.2); Monocytes # (A) 0.67 10*3/uL (0.20-1.00); Monocytes % (A) 7.1 %; Neutrophils # (A) 5.96 10*3/uL (1.80-7.70); Neutrophils % (A) 63.2 %; Platelet Count 313 10*3/uL (140-440); RBC 4.85 10*6/uL (4.40-5.60); RDW 14.5 % (11.5-14.5); WBC 9.43 10*3/uL (4.50-10.00)
[2025-02-22 14:02] LABS: ALT 16 U/L (4-49); AST 21 U/L (17-59); African American GFR (CKD) 85 (>60 ml/min/1.73 sqM); Albumin 4.3 g/dL (3.5-5.0); Alkaline Phosphatase 112 U/L (38-126); Anion Gap 9 mmol/L; Blood Urea Nitrogen 14 mg/dL (9-20); Calcium 9.5 mg/dL (8.4-10.2); Carbon Dioxide 29 mmol/L (22-30); Chloride 102 mmol/L (98-107); Glucose 113 mg/dL (74-99); Magnesium 1.7 mg/dL (1.6-2.3); Non-African American GFR(CKD) 74 (>60 ml/min/1.73 sqM); Potassium 3.5 mmol/L (3.5-5.1); Sodium 140 mmol/L (137-145)
[2025-02-22 14:10] LABS: NT-Pro-B-Type Natriuretic Pept 33 pg/mL
--- NOTE | 2025-02-22 14:17 | US ---
EXAMINATION TYPE: US venous doppler duplex LE LT DATE OF EXAM: 02/22/2025 2:05 PM COMPARISON: US 2024 CLINICAL INDICATION: Male, 55 years old with history of Leg pain and swelling; Left leg pain and swel ling x 1 week, patient on blood thinners TECHNIQUE: The lower extremity deep venous system is examined utilizing real time linear array sonog camelia with graded compression, color doppler sonography, and spectral doppler. SIDE PERFORMED: Left FINDINGS: VESSELS IMAGED: Common Femoral Vein Deep Femoral Vein Greater Saphenous Vein * Femoral Vein Popliteal Vein Small Saphenous Vein * Proximal Calf Veins (* superficial vessels) Left Leg: Appears negative for DVT IMPRESSION: 1. Left lower extremity ultrasound negative for deep venous thrombosis. [facility], , 02/22/2025 2:15 PM
--- NOTE | 2025-02-22 16:17 | CT ---
EXAMINATION TYPE: CT lower extremity LT wo con DATE OF EXAM: 02/22/2025 COMPARISON: 08/19/2024 CLINICAL INDICATION: Male, 55 years old with history of Leg pain and swelling; PHH, Pt presents with edema in the left leg and high blood sugar. Pt states he has chronic left hip pain scheduled for surg calderon in April. CT DLP: 2253.3 mGycm Automated exposure control for dose reduction was used. FINDINGS: There has been interval development of moderate diffuse edema in the lower leg from the knee to ankle . There is no discrete fluid collection to suggest abscess. There is no gas within the soft tissues. There is persistent marked hypertrophic spurring and subchondral cysts left humeral head erosive oste oarthritis. There are no fractures. There is a stable left knee prosthesis. IMPRESSION: 1.Stable marked osteoarthritis of the left hip. 2. Stable left knee prosthesis. 3. Interval development of diffuse edema in the leg from the knee to the ankle without discrete fluid collection or abscess. [facility], , 02/22/2025 4:14 PM
[2025-02-22] MEDS ORDERED: VANCOMYCIN IV PER PHARMACY 1 EACH MISC MISCELLANE PRN (16:31)
[2025-02-22] MEDS ORDERED: NALOXONE 0.4 MG/ML 1 ML VIAL IV PRN (16:32)
[2025-02-22] MEDS ORDERED: ACETAMINOPHEN TAB 325 MG TAB PO PRN (16:32)
[2025-02-22] MEDS: KETOROLAC 15 MG/ML 1 ML VIAL IVP STA (16:46)
[2025-02-22] MEDS: FUROSEMIDE 10 MG/ML 4 ML VIAL IV STA (16:46)
[2025-02-22] MEDS: CEFEPIME 2 GM in SODIUM CHLORIDE 0.9% 100 ML IVPB SCH (16:47)
[2025-02-22] MEDS: VANCOMYCIN 2,250 MG in SODIUM CHLORIDE 0.9% 500 ML 500 ML IVPB ONE (17:41)
[2025-02-22] MEDS: HYDROmorphone 1 MG/ML 1 ML SYRINGE IVP PRN (18:48)
[2025-02-22 21:32] LABS: Glucose,Whole Blood 140 mg/dL (70-110)
[2025-02-23] MEDS ORDERED: ALBUTEROL NEBULIZED 2.5 MG/3 ML INHALATION PRN (05:55)
[2025-02-23 06:23] LABS: Glucose,Whole Blood 205 mg/dL (70-110)
[2025-02-23] MEDS: VANCOMYCIN 2,250 MG in SODIUM CHLORIDE 0.9% 500 ML 500 ML IVPB SCH (06:36)
[2025-02-23] MEDS: INSULIN LISPRO (HumaLOG) 100 UNIT/ML 10 mL VL SQ SCH (08:12)
[2025-02-23] MEDS: INSULIN GLARGINE (LANTUS) 100 UNIT/ML SYR SQ SCH (08:13)
[2025-02-23] MEDS: ATORVASTATIN 40 MG TAB PO SCH (08:14)
[2025-02-23] MEDS: APIXABAN 5 MG TAB PO SCH (08:14)
[2025-02-23] MEDS: ASPIRIN 81 MG PO SCH (08:14)
[2025-02-23] MEDS: FAMOTIDINE 20 MG TAB PO SCH (08:15)
[2025-02-23] MEDS: LORATADINE 10 MG TAB PO SCH (08:15)
[2025-02-23] MEDS: METOPROLOL TARTRATE 25 MG TAB PO SCH (08:15)
[2025-02-23] MEDS: PREGABALIN 100 MG CAP PO SCH (08:16)
[2025-02-23] MEDS: PANTOPRAZOLE 40 MG/10 ML VIAL IV SCH (08:17)
[2025-02-23] MEDS: oxyCODONE ER 10 MG TAB.ER.12H PO SCH (08:17)
[2025-02-23] MEDS: NON FORMULARY DRUG (Milnacipran Hcl [Savella] 50 MG Tablet) PO SCH (09:36)
[2025-02-23] MEDS: FUROSEMIDE 40 MG TAB PO SCH (09:37)
[2025-02-23] MEDS: AMIODARONE 200 MG TAB PO SCH (09:37)
--- NOTE | 2025-02-23 10:48 | P.HPIM ---
History of Present Illness This is a pleasant 55 years old male with past medical history of multiple medical problems. Presents because of left leg pain for 2 to 3 weeks. Patient is a known case of osteoarthritis and he has low back pain. Also he started having left leg pain for 2 to 3 weeks about 7-8/10 in severity was getting more severe over the last 2 weeks 10/10 in severity that make it hard for him to walk because of the pain. He states that the pain radiates from his left hip to the knee and then to the left ankle. It is worse with movement. Patient's he states that he follow-up with Dr. doty for this problem and his plan to see a visiting orthopedic from out of town for his left hip pain He denies fever chills no chest pain or dyspnea. No specific GI/ symptoms. No headache dizziness weakness numbness He smokes 3 cigarettes/day and he was counseled to quit he agrees but he declines nicotine patch. No alcohol or illicit drugs. Patient states that he was drinking a lot of liquid and that he was not taking his oral Lasix because last time discharge from the hospital was not resumed. Also when he follow-up with his PCP Dr. Granda she did not tell him to resume his Lasix. Of note patient was in this facility 12/05-12/09 for acute COPD exacerbation and tracheobronchitis. He was discharged on oral Lasix and prescription for 60 tablets sent to his pharmacy. He is hemodynamically stable and afebrile. Blood pressure 111/66. CBC, BMP LFT were unremarkable CT of the lower extremity showing stable marked osteoarthritis of the left hip with stable left knee prosthesis and marked edema of the knee getting to the left ankle without abscess. Ultrasound of the left leg is negative for DVT proBNP is 33 Review of Systems Review of systems CONSTITUTIONAL: No fever, no malaise, no fatigue. HEENT: No recent visual problems or hearing problems. Denied any sore throat. CARDIOVASCULAR: No orthopnea, PND, no palpitations, no syncope. PULMONARY: No shortness of breath, no cough, no hemoptysis. GASTROINTESTINAL: No diarrhea, no nausea, no vomiting, no abdominal pain. Normoactive bowel sounds. NEUROLOGICAL: No headaches, no weakness, no numbness. HEMATOLOGICAL: Denies any bleeding or petechiae. GENITOURINARY: Denies any burning micturition, frequency, or urgency. MUSCULOSKELETAL/RHEUMATOLOGICAL: As above ENDOCRINE: Denies any polyuria or polydipsia. Past Medical History Past Medical History: Atrial Fibrillation, Chest Pain / Angina, Heart Failure, Diabetes Mellitus, Fibromyalgia, Hyperlipidemia, Hypertension, Pneumonia, Respiratory Disorder Additional Past Medical History / Comment(s): left outer thigh wound mostly healed, Left lung pneumonia/empyema, gout, chronic fibromyalgia, chronic lower back pain, degenerative arthritis, history of degenerative disc disease involving the lumbar spine, hypertension, hyperlipidemia, atrial fibrillation as the patient went into atrial fibrillation during her hospitalization for a left lower lobe pneumonia back in October 2017 and subsequently he converted back to normal sinus. He has chronic anxiety. NEUROPATHY History of Any Multi-Drug Resistant Organisms: MRSA, Other MDRO Date of last positivie culture/infection: 12/07/24 MDRO Source:: sputum / legs Past Surgical History: Back Surgery, Joint Replacement, Orthopedic Surgery Additional Past Surgical History / Comment(s): rt hip replacement, rt knee replacement, left knee surgery with metal, neck fusion, lower back surgery, traumatic amputation rt index finger, left index finger tip amputation from injury. I & D LT THIGH X 6, LUNG SURGERY, COLONOSCOPY Past Anesthesia/Blood Transfusion Reactions: Blood Transfusion Reaction Additional Past Anesthesia/Blood Transfusion Reaction / Comment(s): pt states some limited neck movement due to previous surgery, " I got degenerative bone disease from a blood transfusion", "I woke up in the middle of knee surgery" Past Psychological History: No Psychological Hx Reported Smoking Status: Current every day smoker Past Alcohol Use History: None Reported Past Drug Use History: Marijuana - Past Family History Mother Family Medical History: No Reported History Additional Family Medical History / Comment(s): enlarged heart Father Family Medical History: No Reported History Additional Family Medical History / Comment(s): Father lived to be 101 yrs old. Medications and Allergies Home Medications Medication Instructions Recorded Confirmed Type Albuterol Sulfate [Albuterol 2 puff INHALATION RT-Q6H PRN 06/05/20 02/22/25 History Sulfate Hfa] Pregabalin [Lyrica] 200 mg PO BID 06/05/20 02/22/25 History Milnacipran HCl [Savella] 50 mg PO BID 04/05/22 02/22/25 History tiZANidine [Zanaflex] 4 mg PO HS 04/05/22 02/22/25 History Amitriptyline HCl [Elavil] 100 mg PO HS 02/25/24 02/22/25 History Loratadine [Claritin] 10 mg PO DAILY 02/25/24 02/22/25 History Pramipexole Di-HCl [Mirapex] 0.75 mg PO HS 02/25/24 02/22/25 History Amiodarone [Cordarone] 200 mg PO DAILY #30 tab 08/13/24 02/22/25 Rx Apixaban [Eliquis] 5 mg PO BID #60 tab 08/13/24 02/22/25 Rx Aspirin 81 mg PO DAILY #30 tab 08/13/24 02/22/25 Rx Furosemide [Lasix] 40 mg PO BID #60 tablet 08/13/24 02/22/25 Rx Metoprolol Tartrate [Lopressor] 25 mg PO TID 08/16/24 02/22/25 History Famotidine [Pepcid] 20 mg PO BID 10 Days #20 tablet 12/09/24 02/22/25 Rx Insulin Detemir (Levemir) [Levemir] 25 unit SQ BID #10 ml 12/09/24 02/22/25 Rx Atorvastatin [Lipitor] 40 mg PO DAILY 02/22/25 02/22/25 History INSULIN ASPART (NovoLOG) [NovoLOG 20 unit SQ AC-TID 02/22/25 02/22/25 History (formulary)] oxyCODONE ER [OxyCONTIN] 10 mg PO Q12HR 02/22/25 02/22/25 History oxyCODONE-APAP 10-325MG [Percocet 1 tab PO QID 02/22/25 02/22/25 History 10-325 mg] Allergies Allergy/AdvReac Type Severity Reaction Status Date / Time morphine Allergy Itching Verified 02/22/25 17:10 Physical Exam Vitals: Vital Signs Temp Pulse Pulse Resp BP BP Pulse Ox 02/23/25 10:00 77 16 111/66 97 02/23/25 09:19 111/66 02/23/25 08:00 65 108/73 95 02/23/25 07:45 97.4 F L 66 14 92/67 92 L 02/23/25 02:00 89 02/23/25 01:13 97.6 F 89 18 145/87 94 L 02/22/25 23:23 89 16 160/96 97 02/22/25 21:52 97.7 F 91 18 131/86 99 02/22/25 18:44 95 18 148/96 97 02/22/25 16:45 92 20 160/101 95 02/22/25 15:00 91 16 151/119 95 02/22/25 13:47 94 18 106/83 95 02/22/25 12:29 97.4 F L 91 18 124/89 96 Intake and Output 02/22/25 02/23/25 02/23/25 22:59 06:59 14:59 Output Total 700 200 Balance -700 -200 Output: Urine 700 200 Other: Voiding Method Toilet # Voids 2 Weight 162.84 kg -GENERAL: The patient is alert and oriented x3, not in any acute distress. Well developed, well nourished. Morbidly obese HEENT: Pupils are round and equally reacting to light. EOMI. No scleral icterus. No conjunctival pallor. Normocephalic, atraumatic. No pharyngeal erythema. No th yromegaly. CARDIOVASCULAR: S1 and S2 present. No murmurs, rubs, or gallops. PULMONARY: Chest is clear to auscultation, no wheezing , no crackles. ABDOMEN: Soft, nontender, nondistended, normoactive bowel sounds. No palpable organomegaly. -MUSCULOSKELETAL: No joint swelling or deformity. Lower back tenderness -EXTREMITIES: No cyanosis, clubbing,. 2+ bilateral pitting leg edema. NEUROLOGICAL: Gross neurological examination did not reveal any focal deficits. SKIN: No rashes. no petechiae. Results CBC & Chem 7: 02/22/25 13:23 02/22/25 13:23 Labs: Abnormal Lab Results - Last 24 Hours (Table) 02/22/25 02/22/25 02/22/25 Range/Units 13:23 13:23 21:31 Basophils # 0.11 H (0.00-0.10) 10*3/uL Glucose 113 H (74-99) mg/dL POC Glucose (mg/dL) 140 H (70-110) mg/dL 02/23/25 Range/Units 06:21 Basophils # (0.00-0.10) 10*3/uL Glucose (74-99) mg/dL POC Glucose (mg/dL) 205 H (70-110) mg/dL Thrombosis Risk Factor Assmnt - Choose All That Apply Any of the Below Risk Factors Present?: Yes Each Factor Represents 1 point: Age 41-60 years, Obesity (BMI >25) Other Risk Factors: No Other congenital or acquired thrombophilia - If yes, enter type in comment: No Thrombosis Risk Factor Assessment Total Risk Factor Score: 2 Thrombosis Risk Factor Assessment Level: Low Risk Assessment and Plan Assessment: Acute on chronic left leg pain most likely osteoarthritis, part of sciatica and low back pain radiating to the left leg Bilateral leg swelling Possible left leg cellulitis, clinical suspicion felt less likely Morbid obesity with BMI 42.6. Diabetes mellitus Hypertension Hyperlipidemia History of osteoarthritis Paroxysmal atrial fibrillation Fibromyalgia Nicotine dependence COPD with no exacerbation Plan: Continue with the current pain management Continue with IV Lasix Orthopedic team consult Infectious disease team consult Resume home medication including oral Lasix. Put fluid restriction Labs and medication were reviewed.. Continue same treatment. Continue with symptomatic treatment. Resume home medication. Monitor lytes and vitals. DVT and GI prophylaxis. Further recommendations depends on the clinical course of the patient DVT prophylaxis: Subcutaneous heparin GI Prophylaxis: Pepcid PT/OT: Pending Prognosis is guarded
--- NOTE | 2025-02-23 11:06 | P.CNOR ---
History of Present Illness - [facility] Consult date: 02/23/25 Consult reason: joint pain History of present illness: Patient presents for evaluation of bilateral lower extremity swelling, of note patient has a longstanding history of baseline lower extremity pain that is most severe at his hips. Patient notes that he is scheduled to have hip replacement surgery later this year with an outside provider. He denies any recent injuries, pain is well localized to the hip and groin area, he requires a walker for ambulatory assistance. He will also note pain to the low back that will occasionally radiate into the thighs. He has had several issues with cellulitis in the past to the lower extremities that have been treated with antibiotic therapy Review of Systems Back pain and hip pain and bilateral lower extremity swelling Past Medical History Past Medical History: Atrial Fibrillation, Chest Pain / Angina, Heart Failure, Diabetes Mellitus, Fibromyalgia, Hyperlipidemia, Hypertension, Pneumonia, R espiratory Disorder Additional Past Medical History / Comment(s): left outer thigh wound mostly healed, Left lung pneumonia/empyema, gout, chronic fibromyalgia, chronic lower back pain, degenerative arthritis, history of degenerative disc disease involving the lumbar spine, hypertension, hyperlipidemia, atrial fibrillation as the patient went into atrial fibrillation during her hospitalization for a left lower lobe pneumonia back in October 2017 and subsequently he converted back to normal sinus. He has chronic anxiety. NEUROPATHY History of Any Multi-Drug Resistant Organisms: MRSA, Other MDRO Year Discovered:: 12/07/24 MDRO Source:: sputum / legs Past Surgical History: Back Surgery, Joint Replacement, Orthopedic Surgery Additional Past Surgical History / Comment(s): rt hip replacement, rt knee replacement, left knee surgery with metal, neck fusion, lower back surgery, traumatic amputation rt index finger, left index finger tip amputation from injury. I & D LT THIGH X 6, LUNG SURGERY, COLONOSCOPY Past Anesthesia/Blood Transfusion Reactions: Blood Transfusion Reaction Additional Past Anesthesia/Blood Transfusion Reaction / Comm: pt states some limited neck movement due to previous surgery, " I got degenerative bone disease from a blood transfusion", "I woke up in the middle of knee surgery" Past Psychological History: No Psychological Hx Reported Smoking Status: Current every day smoker Past Alcohol Use History: None Reported Past Drug Use History: Marijuana - Past Family History Mother Family Medical History: No Reported History Additional Family Medical History / Comment(s): enlarged heart Father Family Medical History: No Reported History Additional Family Medical History / Comment(s): Father lived to be 101 yrs old. Medications and Allergies Home Medications Medication Instructions Recorded Confirmed Type Albuterol Sulfate [Albuterol 2 puff INHALATION RT-Q6H PRN 06/05/20 02/22/25 History Sulfate Hfa] Pregabalin [Lyrica] 200 mg PO BID 06/05/20 02/22/25 History Milnacipran HCl [Savella] 50 mg PO BID 04/05/22 02/22/25 History tiZANidine [Zanaflex] 4 mg PO HS 04/05/22 02/22/25 History Amitriptyline HCl [Elavil] 100 mg PO HS 02/25/24 02/22/25 History Loratadine [Claritin] 10 mg PO DAILY 02/25/24 02/22/25 History Pramipexole Di-HCl [Mirapex] 0.75 mg PO HS 02/25/24 02/22/25 History Amiodarone [Cordarone] 200 mg PO DAILY #30 tab 08/13/24 02/22/25 Rx Apixaban [Eliquis] 5 mg PO BID #60 tab 08/13/24 02/22/25 Rx Aspirin 81 mg PO DAILY #30 tab 08/13/24 02/22/25 Rx Furosemide [Lasix] 40 mg PO BID #60 tablet 08/13/24 02/22/25 Rx Metoprolol Tartrate [Lopressor] 25 mg PO TID 08/16/24 02/22/25 History Famotidine [Pepcid] 20 mg PO BID 10 Days #20 tablet 12/09/24 02/22/25 Rx Insulin Detemir (Levemir) [Levemir] 25 unit SQ BID #10 ml 12/09/24 02/22/25 Rx Atorvastatin [Lipitor] 40 mg PO DAILY 02/22/25 02/22/25 History INSULIN ASPART (NovoLOG) [NovoLOG 20 unit SQ AC-TID 02/22/25 02/22/25 History (formulary)] oxyCODONE ER [OxyCONTIN] 10 mg PO Q12HR 02/22/25 02/22/25 History oxyCODONE-APAP 10-325MG [Percocet 1 tab PO QID 02/22/25 02/22/25 History 10-325 mg] Allergies Allergy/AdvReac Type Severity Reaction Status Date / Time morphine Allergy Itching Verified 02/22/25 17:10 Physical Examination On exam of the left lower extremities he has a well-healed incision to the left knee from his previous knee replacement, there is diffuse swelling to the bilateral lower extremities however there is no significant erythema or warmth at this time There is no erythema effusion or tenderness around his left knee And is able to tolerate gentle range of motion of the left knee without pain Patient does have significant pain with motion of his hip due to underlying advanced arthritis Patient has intact sensation throughout the left lower extremity Strength exam is limited due to pain from his hip However foot and ankle motion is 5 out of 5 strength Has brisk capillary refill throughout the left foot Results - Labs Labs: Abnormal Lab Results - Last 24 Hours (Table) 02/22/25 02/22/25 02/22/25 Range/Units 13:23 13:23 21:31 Basophils # 0.11 H (0.00-0.10) 10*3/uL Glucose 113 H (74-99) mg/dL POC Glucose (mg/dL) 140 H (70-110) mg/dL 02/23/25 Range/Units 06:21 Basophils # (0.00-0.10) 10*3/uL Glucose (74-99) mg/dL POC Glucose (mg/dL) 205 H (70-110) mg/dL H & H 02/22/25 Range/Units 13:23 Hgb 15.3 (13.0-17.0) g/dL Hct 44.1 (39.6-50.0) % Result Diagrams: 02/22/25 13:23 02/22/25 13:23 - Diagnostic results Comments: CT exam of the left lower extremity confirms advanced degenerative changes of the left hip, there is an intact left knee total arthroplasty that is in appropriate position there is no evidence of a left knee joint effusion there is some diffuse swelling noted to the left leg from the knee to the ankle Venous Doppler study was negative for any evidence of DVT Assessment and Plan Assessment: Left hip advanced osteoarthritis Lumbar degenerative disc disease with some associated radiculopathy Left lower extremity swelling likely due to fluid overload Plan: Weightbearing as tolerated to the left lower extremity Multimodal pain regimen Given patient's limitation due to hip pain pain management consult is recommended Patient is scheduled to have joint replacement surgery with an outside provider, should any hip injections be recommended by pain management would advise contacting patient's surgeon to discuss timing so as to not conflict with any operative plans No signs of infection involving the left total knee Patient may follow-up with his orthopedist of record for further plans regarding his hip replacement
[2025-02-23 11:48] LABS: Glucose,Whole Blood 66 mg/dL (70-110)
[2025-02-23 12:22] LABS: Glucose,Whole Blood 134 mg/dL (70-110)
[2025-02-23] MEDS: oxyCODONE-APAP 10-325MG 1 EACH TAB PO PRN (12:52)
[2025-02-23] MEDS: HYDROmorphone 0.5 MG/0.5 ML SYRINGE IVP PRN (13:46)
[2025-02-23 17:21] LABS: Glucose,Whole Blood 160 mg/dL (70-110)
[2025-02-23] MEDS: AMITRIPTYLINE HCL 50 MG TAB PO SCH (20:24)
[2025-02-23] MEDS: FUROSEMIDE 10 MG/ML 4 ML VIAL IV SCH (20:24)
[2025-02-23] MEDS: tiZANidine 4 MG TAB PO SCH (20:25)
[2025-02-23 21:07] LABS: Glucose,Whole Blood 161 mg/dL (70-110)
--- NOTE | 2025-02-23 22:44 | P.CONS ---
History of Present Illness - Reason for Consult Consult date: 02/23/25 Ruled out left leg cellulitis Requesting physician: Trenton E Sheet - Chief Complaint Left leg pain and swelling x days - History of Present Illness Patient is a 55-year-old male with a past medical history significant for hypertension hyperlipidemia fibromyalgia diabetes mellitus atrial fibrillation chronic pain syndrome for which the patient to follow-up with neurology as outpatient setting presenting to the hospital for evaluation of left leg pain patient complaining of pain going from recently down to the foot with the symptoms significantly worst on the last day or 2 patient denies any history of any trauma recently, has been complaining of pain to be moderate to severe intensity dull aching and not relieved with his [place] that he has been taking at home, patient also complaining of increasing swelling of bilateral lower extremity patient denies high-grade fever or any chills and no fever was recorded on presentation to the hospital patient was not tachycardic hypotensive or hypoxic patient did have normal white count of 9.43 with no left shift BUN and creatinine has been normal electrolytes are normal liver enzymes are normal blood culture obtained which is currently pending patient did have a venous Doppler to the left lower extremity that was negative for DVT did have a lower extremity CT stable marked osteoarthritis of the left hip stable left knee prosthesis diffuse edema of the leg without any fluid collection or abscess patient was started on vancomycin infectious he was consulted to rule out cellulitis to left lower extremity Review of Systems Positive point and negatives has been mentioned in the HPI, complete review of systems was performed and all other systems are negative Past Medical History Past Medical History: Atrial Fibrillation, Chest Pain / Angina, Heart Failure, Diabetes Mellitus, Fibromyalgia, Hyperlipidemia, Hypertension, Pneumonia, Re spiratory Disorder Additional Past Medical History / Comment(s): left outer thigh wound mostly healed, Left lung pneumonia/empyema, gout, chronic fibromyalgia, chronic lower b ack pain, degenerative arthritis, history of degenerative disc disease involving the lumbar spine, hypertension, hyperlipidemia, atrial fibrillation as the patient went into atrial fibrillation during her hospitalization for a left lower lobe pneumonia back in October 2017 and subsequently he converted back to normal sinus. He has chronic anxiety. NEUROPATHY History of Any Multi-Drug Resistant Organisms: MRSA, Other MDRO Year Discovered:: 12/07/24 MDRO Source:: sputum / legs Past Surgical History: Back Surgery, Joint Replacement, Orthopedic Surgery Additional Past Surgical History / Comment(s): rt hip replacement, rt knee replacement, left knee surgery with metal, neck fusion, lower back surgery, traumatic amputation rt index finger, left index finger tip amputation from injury. I & D LT THIGH X 6, LUNG SURGERY, COLONOSCOPY Past Anesthesia/Blood Transfusion Reactions: Blood Transfusion Reaction Additional Past Anesthesia/Blood Transfusion Reaction / Comm: pt states some limited neck movement due to previous surgery, " I got degenerative bone disease from a blood transfusion", "I woke up in the middle of knee surgery" Past Psychological History: No Psychological Hx Reported Smoking Status: Current every day smoker Past Alcohol Use History: None Reported Past Drug Use History: Marijuana - Past Family History Mother Family Medical History: No Reported History Additional Family Medical History / Comment(s): enlarged heart Father Family Medical History: No Reported History Additional Family Medical History / Comment(s): Father lived to be 101 yrs old. Medications and Allergies Home Medications Medication Instructions Recorded Confirmed Type Albuterol Sulfate [Albuterol 2 puff INHALATION RT-Q6H PRN 06/05/20 02/22/25 History Sulfate Hfa] Pregabalin [Lyrica] 200 mg PO BID 06/05/20 02/22/25 History Milnacipran HCl [Savella] 50 mg PO BID 04/05/22 02/22/25 History tiZANidine [Zanaflex] 4 mg PO HS 04/05/22 02/22/25 History Amitriptyline HCl [Elavil] 100 mg PO HS 02/25/24 02/22/25 History Loratadine [Claritin] 10 mg PO DAILY 02/25/24 02/22/25 History Pramipexole Di-HCl [Mirapex] 0.75 mg PO HS 02/25/24 02/22/25 History Amiodarone [Cordarone] 200 mg PO DAILY #30 tab 08/13/24 02/22/25 Rx Apixaban [Eliquis] 5 mg PO BID #60 tab 08/13/24 02/22/25 Rx Aspirin 81 mg PO DAILY #30 tab 08/13/24 02/22/25 Rx Furosemide [Lasix] 40 mg PO BID #60 tablet 08/13/24 02/22/25 Rx Metoprolol Tartrate [Lopressor] 25 mg PO TID 08/16/24 02/22/25 History Famotidine [Pepcid] 20 mg PO BID 10 Days #20 tablet 12/09/24 02/22/25 Rx Insulin Detemir (Levemir) [Levemir] 25 unit SQ BID #10 ml 12/09/24 02/22/25 Rx Atorvastatin [Lipitor] 40 mg PO DAILY 02/22/25 02/22/25 History INSULIN ASPART (NovoLOG) [NovoLOG 20 unit SQ AC-TID 02/22/25 02/22/25 History (formulary)] oxyCODONE ER [OxyCONTIN] 10 mg PO Q12HR 02/22/25 02/22/25 History oxyCODONE-APAP 10-325MG [Percocet 1 tab PO QID 02/22/25 02/22/25 History 10-325 mg] Allergies Allergy/AdvReac Type Severity Reaction Status Date / Time morphine Allergy Itching Verified 02/22/25 17:10 Physical Exam Vitals: Vital Signs Temp Pulse Pulse Resp BP BP Pulse Ox 02/23/25 12:35 16 136/85 96 02/23/25 11:50 88 16 136/85 93 L 02/23/25 10:00 77 16 111/66 97 02/23/25 09:19 111/66 02/23/25 08:00 65 108/73 95 02/23/25 07:45 97.4 F L 66 14 92/67 92 L 02/23/25 02:00 89 02/23/25 01:13 97.6 F 89 18 145/87 94 L 02/22/25 23:23 89 16 160/96 97 02/22/25 21:52 97.7 F 91 18 131/86 99 02/22/25 18:44 95 18 148/96 97 02/22/25 16:45 92 20 160/101 95 Intake and Output 02/23/25 02/23/25 02/23/25 06:59 14:59 22:59 Output Total 200 Balance -200 Output: Urine 200 Other: Voiding Method Toilet GENERAL DESCRIPTION: Middle-age male up in the chair, no distress. No tachypnea or accessory muscle of respiration use. HEENT: Shows Pallor , no scleral icterus. Oral mucous membrane is dry. No pharyn geal erythema or thrush NECK: Trachea central, no thyromegaly. LUNGS: Unlabored breathing. Clear to auscultation anteriorly. No wheeze or crackle. HEART: S1, S2, regular rate and rhythm. No loud murmur ABDOMEN: Soft, no tenderness , guarding or rigidity, no organomegaly EXTREMITIES: Diffuse swelling to bilateral lower extremity more marked to the left leg however no redness was noticed no warmth no open wound or any drainage SKIN: No rash, no masses palpable. NEUROLOGICAL: The patient is awake, alert, oriented x3, mood and affect normal. Results CBC & Chem 7: 02/22/25 13:23 02/22/25 13:23 Labs: Abnormal Lab Results - Last 24 Hours (Table) 02/22/25 02/22/25 02/23/25 Range/Units 13:23 21:31 06:21 POC Glucose (mg/dL) 140 H 205 H (70-110) mg/dL C-Reactive Protein 6.0 H (0.00-0.80) 02/23/25 02/23/25 Range/Units 11:46 12:21 POC Glucose (mg/dL) 66 L 134 H (70-110) mg/dL C-Reactive Protein (0.00-0.80) Assessment and Plan (1) Localized swelling of both lower legs Current Visit: Yes Status: Acute Code(s): R22.43 - LOCALIZED SWELLING, MASS AND LUMP, LOWER LIMB, BILATERAL SNOMED Code(s): 00318451285391925 (2) Dependent edema Current Visit: Yes Status: Acute Code(s): R60.9 - EDEMA, UNSPECIFIED SNOMED Code(s): 258785133 Plan: 1patient presented to hospital with intractable pain to the left lower extremity which is from the left knee to the foot area questionably neurological/referred pain patient did have swelling to the left lower extremity however no features of cellulitis there was no redness noticed no warmth patient did not have any fever and no elevated white count clinically doubt active cellulitis at this point 2will recommend to discontinue the vancomycin 3will advise [place] wrap for compression to get some of the swelling up to see if that will help with the pain Multiple question concern has been answered We will follow on clinical condition and cultures to further adjust medication if needed Thank you for this consultation we will follow the patient along with you Dictation was produced using [employer] software. please excuse any grammatical, word or spelling errors. Time with Patient: Greater than 30
[2025-02-24 06:23] LABS: Glucose,Whole Blood 170 mg/dL (70-110)
[2025-02-24 09:36] LABS: Basophils # (A) 0.09 X 10*3/uL (0.00-0.10); Eosinophils # (A) 0.43 X 10*3/uL (0.04-0.35); Eosinophils % (A) 4.6 %; HCT 38.6 % (39.6-50.0); HGB 12.4 g/dL (13.0-17.0); Lymphocytes # (A) 2.55 X 10*3/uL (0.90-5.00); Lymphocytes % (A) 27.4 %; MCH 30.4 pg (27.0-32.0); MCHC 32.1 g/dL (32.0-37.0); MCV 94.6 FL (80.0-97.0); Mean Platelet Volume 11.5 FL (9.5-12.2); Monocytes # (A) 0.59 X 10*3/uL (0.20-1.00); Monocytes % (A) 6.4 %; NRBC Per 100 WBC 0 X 10*3/uL (0.00-0.01); Neutrophils % (A) 60.3 %; Platelet Count 258 X 10*3/uL (140-440); RBC 4.08 X 10*6/uL (4.40-5.60); RDW 14.8 % (11.5-14.5); WBC 9.29 X 10*3/uL (4.50-10.00)
[2025-02-24 09:43] LABS: BUN/Creat Ratio 13.15 Ratio (12.00-20.00); Blood Urea Nitrogen 17.1 mg/dL (9.0-27.0); Calcium 8.5 mg/dL (8.7-10.3); Carbon Dioxide 27.1 mmol/L (21.6-31.8); Chloride 102 mmol/L (96-109); Glucose 100 mg/dL (70-110); Potassium 3.6 mmol/L (3.5-5.5); Sodium 142 mmol/L (135-145)
[2025-02-24 11:34] LABS: Glucose,Whole Blood 119 mg/dL (70-110)
[2025-02-24] MEDS ORDERED: VANCOMYCIN TROUGH DUE 1 EACH MISC MISCELLANE ONE (17:00)
[2025-02-24 17:04] LABS: Glucose,Whole Blood 115 mg/dL (70-110)
--- NOTE | 2025-02-24 18:47 | P.PN ---
Subjective This is a pleasant 55 years old male with past medical history of multiple medical problems. Presents because of left leg pain for 2 to 3 weeks. Patient is a known case of osteoarthritis and he has low back pain. Also he started having left leg pain for 2 to 3 weeks about 7-8/10 in severity was getting more severe over the last 2 weeks 10/10 in severity that make it hard for him to walk because of the pain. He states that the pain radiates from his left hip to the knee and then to the left ankle. It is worse with movement. Patient's he states that he follow-up with Dr. doty for this problem and his plan to see a visiting orthopedic from out of town for his left hip pain He denies fever chills no chest pain or dyspnea. No specific GI/ symptoms. No headache dizziness weakness numbness He smokes 3 cigarettes/day and he was counseled to quit he agrees but he declines nicotine patch. No alcohol or illicit drugs. Patient states that he was drinking a lot of liquid and that he was not taking his oral Lasix because last time discharge from the hospital was not resumed. Also when he follow-up with his PCP Dr. Granda she did not tell him to resume his Lasix. Of note patient was in this facility 12/05-12/09 for acute COPD exacerbation and tracheobronchitis. He was discharged on oral Lasix and prescription for 60 tablets sent to his pharmacy. He is hemodynamically stable and afebrile. Blood pressure 111/66. CBC, BMP LFT were unremarkable CT of the lower extremity showing stable marked osteoarthritis of the left hip with stable left knee prosthesis and marked edema of the knee getting to the left ankle without abscess. Ultrasound of the left leg is negative for DVT proBNP is 33 02/24 Patient seen and evaluated today, he is complaining from pain in his left lower extremity most likely related to his severe advanced left hip osteoarthritis with a plan for surgery for his left hip per orthopedic team on 05/13 as an [facility] facility patient confirms the date and the plan for surgery and confirms he is going to follow-up with There is no suspicion of cellulitis, keep monitoring off antibiotic Pain still uncontrolled however patient gets sleepy. Pain consult placed Creatinine went up 1.1 up to 1.3, switch Lasix to oral dose Objective - Vital Signs Vital signs: Vital Signs Temp 98.0 F 02/24/25 07:11 Pulse 91 02/24/25 07:11 Resp 20 02/24/25 07:11 BP 146/82 02/24/25 07:11 Pulse Ox 93 L 02/24/25 07:11 FiO2 Intake & Output 02/23/25 02/24/25 02/24/25 18:59 06:59 18:59 Intake Total 1027 1500 750 Balance 1027 1500 750 Intake: Oral 1027 1500 750 Other: Voiding Method Toilet Toilet # Voids 3 - Exam -GENERAL: The patient is alert and oriented x3, not in any acute distress. Well developed, well nourished. Morbidly obese HEENT: Pupils are round and equally reacting to light. EOMI. No scleral icterus. No conjunctival pallor. Normocephalic, atraumatic. No pharyngeal erythema. No thyromegaly. CARDIOVASCULAR: S1 and S2 present. No murmurs, rubs, or gallops. PULMONARY: Chest is clear to auscultation, no wheezing , no crackles. ABDOMEN: Soft, nontender, nondistended, normoactive bowel sounds. No palpable organomegaly. -MUSCULOSKELETAL: No joint swelling or deformity. Lower back tenderness -EXTREMITIES: No cyanosis, clubbing,. 2+ bilateral pitting leg edema. NEUROLOGICAL: Gross neurological examination did not reveal any focal deficits. SKIN: No rashes. no petechiae. - Labs CBC & Chem 7: 02/24/25 03:49 02/24/25 03:49 Labs: Abnormal Lab Results - Last 24 Hours (Table) 02/22/25 02/23/25 02/23/25 Range/Units 13:23 11:46 12:21 RBC (4.40-5.60) X 10*6/uL Hgb (13.0-17.0) g/dL Hct (39.6-50.0) % RDW (11.5-14.5) % Eosinophils # (0.04-0.35) X 10*3/uL Anion Gap (4.00-12.00) mmol/L POC Glucose (mg/dL) 66 L 134 H (70-110) mg/dL Calcium (8.7-10.3) mg/dL C-Reactive Protein 6.0 H (0.00-0.80) 02/23/25 02/23/25 02/24/25 Range/Units 17:20 21:06 03:49 RBC 4.08 L (4.40-5.60) X 10*6/uL Hgb 12.4 L (13.0-17.0) g/dL Hct 38.6 L (39.6-50.0) % RDW 14.8 H (11.5-14.5) % Eosinophils # 0.43 H (0.04-0.35) X 10*3/uL Anion Gap (4.00-12.00) mmol/L POC Glucose (mg/dL) 160 H 161 H (70-110) mg/dL Calcium (8.7-10.3) mg/dL C-Reactive Protein (0.00-0.80) 02/24/25 02/24/25 Range/Units 03:49 06:21 RBC (4.40-5.60) X 10*6/uL Hgb (13.0-17.0) g/dL Hct (39.6-50.0) % RDW (11.5-14.5) % Eosinophils # (0.04-0.35) X 10*3/uL Anion Gap 12.90 H (4.00-12.00) mmol/L POC Glucose (mg/dL) 170 H (70-110) mg/dL Calcium 8.5 L (8.7-10.3) mg/dL C-Reactive Protein 3.20 H (0.00-0.80) Microbiology - Last 24 Hours (Table) 02/22/25 13:30 Blood Culture - Preliminary Blood Assessment and Plan Assessment: Acute on chronic left leg pain most likely osteoarthritis, part of sciatica and low back pain radiating to the left leg Bilateral leg swelling cellulitis felt less likely Severe osteoarthritis of the left hip requiring surgery on 05/13 Morbid obesity with BMI 42.6. Diabetes mellitus Hypertension Hyperlipidemia History of osteoarthritis Paroxysmal atrial fibrillation Fibromyalgia Nicotine dependence COPD with no exacerbation Plan: Keep monitoring while off antibiotic Switch IV Lasix to oral Lasix Continue with pain management, pain consult was placed which is not available on the weekend, follow-up on Wednesday Infectious disease consult is appreciated Orthopedic team consult is appreciated Continue with the current pain management Continue with oral fluid restriction Patient planned to have left hip replacement surgery on 8/31 the patient has to follow-up with. Labs and medication were reviewed.. Continue same treatment. Continue with symptomatic treatment. Resume home medication. Monitor lytes and vitals. DVT and GI prophylaxis. Further recommendations depends on the clinical course of the patient DVT prophylaxis: Subcutaneous heparin GI Prophylaxis: Pepcid PT/OT: Pending Prognosis is guarded
[2025-02-24 20:10] LABS: Glucose,Whole Blood 125 mg/dL (70-110)
--- NOTE | 2025-02-24 20:22 | P.PN ---
Subjective Progress Note Date: 02/24/25 Principal diagnosis: Reason for follow-up with lower extremity swelling and question of cellulitis Patient is a 55-year-old male with a past medical history significant for hypertension hyperlipidemia fibromyalgia diabetes mellitus atrial fibrillation chronic pain syndrome presented to hospital with left lower extremity pain CT did shows a marked osteoarthritis of the left hip and swelling to the left leg but no redness ID was consulted with a question of possible cellulitis. On today's evaluation that is 02/25/2024, patient did have a temperature of 98 F this morning and denies having any chills, patient is on room air and breathing comfortably no chest pain or cough, the patient did not have any nausea vomiting abdominal pain or any diarrhea mention swelling of the lower extremity and pain is slightly decreased still complaining about inadequacy of the pain medication. Patient white count is 9.29 creatinine is 1.3 blood culture has been negative Objective - Vital Signs Vital signs: Vital Signs Temp 97.7 F 02/24/25 14:16 Pulse 72 02/24/25 14:16 Resp 21 02/24/25 14:16 BP 135/90 02/24/25 14:16 Pulse Ox 95 02/24/25 14:16 FiO2 Intake & Output 02/23/25 02/24/25 02/24/25 18:59 06:59 18:59 Intake Total 1027 1500 1000 Balance 1027 1500 1000 Intake: Oral 1027 1500 1000 Other: Voiding Method Toilet Toilet # Voids 3 1 - Exam GENERAL DESCRIPTION: Middle-age male lying in bed in no distress RESPIRATORY SYSTEM: Unlabored breathing , decreased breath sounds at bases HEART: S1 S2 regular rate and rhythm , ABDOMEN: Soft , no tenderness EXTREMITIES: Diffuse swelling to bilateral lower extremity no redness - Labs CBC & Chem 7: 03/03/25 11:59 03/02/25 03:22 Labs: Abnormal Lab Results - Last 24 Hours (Table) 02/23/25 02/24/25 02/24/25 Range/Units 21:06 03:49 03:49 RBC 4.08 L (4.40-5.60) X 10*6/uL Hgb 12.4 L (13.0-17.0) g/dL Hct 38.6 L (39.6-50.0) % RDW 14.8 H (11.5-14.5) % Eosinophils # 0.43 H (0.04-0.35) X 10*3/uL Anion Gap 12.90 H (4.00-12.00) mmol/L POC Glucose (mg/dL) 161 H (70-110) mg/dL Calcium 8.5 L (8.7-10.3) mg/dL C-Reactive Protein 3.20 H (0.00-0.80) mg/dL 02/24/25 02/24/25 02/24/25 Range/Units 06:21 11:32 17:03 RBC (4.40-5.60) X 10*6/uL Hgb (13.0-17.0) g/dL Hct (39.6-50.0) % RDW (11.5-14.5) % Eosinophils # (0.04-0.35) X 10*3/uL Anion Gap (4.00-12.00) mmol/L POC Glucose (mg/dL) 170 H 119 H 115 H (70-110) mg/dL Calcium (8.7-10.3) mg/dL C-Reactive Protein (0.00-0.80) mg/dL Microbiology - Last 24 Hours (Table) 02/22/25 13:30 Blood Culture - Preliminary Blood Assessment and Plan (1) Localized swelling of both lower legs Status: Acute Code(s): R22.43 - LOCALIZED SWELLING, MASS AND LUMP, LOWER LIMB, BILATERAL SNOMED Code(s): 40724928223889521 (2) Dependent edema Status: Acute Code(s): R60.9 - EDEMA, UNSPECIFIED SNOMED Code(s): 839830528 Plan: 1patient presented to hospital with intractable pain to the left lower extremity which is from the left knee to the foot area questionably neurological/referred pain patient did have swelling to the left lower extremity however no features of cellulitis there was no redness noticed no warmth patient did not have any fever and no elevated white count clinically doubt active cellulitis at this point 2patient was advised Jean Carlos wrap for compression to get some of the swelling down with the patient has refused because of discomfort 3left post thigh previous site of drainage with a scar and no active cellulitis Dictation was produced using [employer] dictation software. please excuse any grammatical, word or spelling errors. Time with Patient: Less than 30
[2025-02-24 23:09] LABS: Glucose,Whole Blood 119 mg/dL (70-110)
[2025-02-25 06:22] LABS: Glucose,Whole Blood 128 mg/dL (70-110)
[2025-02-25] MEDS: FUROSEMIDE 40 MG TAB PO SCH (09:10)
[2025-02-25 12:01] LABS: Glucose,Whole Blood 139 mg/dL (70-110)
[2025-02-25 16:25] LABS: Glucose,Whole Blood 144 mg/dL (70-110)
[2025-02-25 20:18] LABS: Glucose,Whole Blood 153 mg/dL (70-110)
--- NOTE | 2025-02-26 05:34 | P.PN ---
Subjective This is a pleasant 55 years old male with past medical history of multiple medical problems. Presents because of left leg pain for 2 to 3 weeks. Patient is a known case of osteoarthritis and he has low back pain. Also he started having left leg pain for 2 to 3 weeks about 7-8/10 in severity was getting more severe over the last 2 weeks 10/10 in severity that make it hard for him to walk because of the pain. He states that the pain radiates from his left hip to the knee and then to the left ankle. It is worse with movement. Patient's he states that he follow-up with Dr. doty for this problem and his plan to see a visiting orthopedic from out of town for his left hip pain He denies fever chills no chest pain or dyspnea. No specific GI/ symptoms. No headache dizziness weakness numbness He smokes 3 cigarettes/day and he was counseled to quit he agrees but he declines nicotine patch. No alcohol or illicit drugs. Patient states that he was drinking a lot of liquid and that he was not taking his oral Lasix because last time discharge from the hospital was not resumed. Also when he follow-up with his PCP Dr. Granda she did not tell him to resume his Lasix. Of note patient was in this facility 12/05-12/09 for acute COPD exacerbation and tracheobronchitis. He was discharged on oral Lasix and prescription for 60 tablets sent to his pharmacy. He is hemodynamically stable and afebrile. Blood pressure 111/66. CBC, BMP LFT were unremarkable CT of the lower extremity showing stable marked osteoarthritis of the left hip with stable left knee prosthesis and marked edema of the knee getting to the left ankle without abscess. Ultrasound of the left leg is negative for DVT proBNP is 33 02/24 Patient seen and evaluated today, he is complaining from pain in his left lower extremity most likely related to his severe advanced left hip osteoarthritis with a plan for surgery for his left hip per orthopedic team on 05/13 as an [facility] facility patient confirms the date and the plan for surgery and confirms he is going to follow-up with There is no suspicion of cellulitis, keep monitoring off antibiotic Pain still uncontrolled however patient gets sleepy. Pain consult placed Creatinine went up 1.1 up to 1.3, switch Lasix to oral dose 02/25 Patient still has pain in his hip area and lower extremity. Still on pain medication There is no evidence of erythema he does not need antibiotics Patient wants to wait to see the pain doctor tomorrow Patient is afebrile blood pressure stable Objective - Vital Signs Vital signs: Vital Signs Temp 98.5 F 02/25/25 19:18 Pulse 76 02/25/25 19:18 Resp 18 02/25/25 19:18 BP 151/86 02/25/25 19:18 Pulse Ox 94 L 02/25/25 19:18 FiO2 Intake & Output 02/25/25 02/25/25 02/26/25 06:59 18:59 06:59 Other: # Voids 2 3 - Exam -GENERAL: The patient is alert and oriented x3, not in any acute distress. Well developed, well nourished. Morbidly obese HEENT: Pupils are round and equally reacting to light. EOMI. No scleral icterus. No conjunctival pallor. Normocephalic, atraumatic. No pharyngeal erythema. No thyromegaly. CARDIOVASCULAR: S1 and S2 present. No murmurs, rubs, or gallops. PULMONARY: Chest is clear to auscultation, no wheezing , no crackles. ABDOMEN: Soft, nontender, nondistended, normoactive bowel sounds. No palpable organomegaly. -MUSCULOSKELETAL: No joint swelling or deformity. Lower back tenderness -EXTREMITIES: No cyanosis, clubbing,. 2+ bilateral pitting leg edema. NEUROLOGICAL: Gross neurological examination did not reveal any focal deficits. SKIN: No rashes. no petechiae. - Labs CBC & Chem 7: 02/24/25 03:49 02/24/25 03:49 Labs: Abnormal Lab Results - Last 24 Hours (Table) 02/25/25 02/25/25 02/25/25 Range/Units 06:20 12:00 16:24 POC Glucose (mg/dL) 128 H 139 H 144 H (70-110) mg/dL 02/25/25 Range/Units 20:17 POC Glucose (mg/dL) 153 H (70-110) mg/dL Microbiology - Last 24 Hours (Table) 02/22/25 13:30 Blood Culture - Preliminary Blood Assessment and Plan Assessment: Acute on chronic left leg pain most likely osteoarthritis, part of sciatica and low back pain radiating to the left leg Bilateral leg swelling cellulitis felt less likely Severe osteoarthritis of the left hip requiring surgery on 05/13 Morbid obesity with BMI 42.6. Diabetes mellitus Hypertension Hyperlipidemia History of osteoarthritis Paroxysmal atrial fibrillation Fibromyalgia Nicotine dependence COPD with no exacerbation Plan: Keep monitoring while off antibiotic Switch IV Lasix to oral Lasix Continue with pain management, pain consult was placed which is not available on the weekend, follow-up on Wednesday Infectious disease consult is appreciated Orthopedic team consult is appreciated Continue with the current pain management Continue with oral fluid restriction Patient planned to have left hip replacement surgery on 05/13 the patient has to follow-up with. Labs and medication were reviewed.. Continue same treatment. Continue with symptomatic treatment. Resume home medication. Monitor lytes and vitals. DVT and GI prophylaxis. Further recommendations depends on the clinical course of the patient DVT prophylaxis: Subcutaneous heparin GI Prophylaxis: Pepcid PT/OT: Pending Prognosis is guarded
[2025-02-26 06:26] LABS: Glucose,Whole Blood 125 mg/dL (70-110)
[2025-02-26 08:12] LABS: Basophils # (A) 0.06 X 10*3/uL (0.00-0.10); Basophils % (A) 0.7 %; Eosinophils # (A) 0.48 X 10*3/uL (0.04-0.35); Eosinophils % (A) 5.9 %; HCT 42.4 % (39.6-50.0); HGB 13.9 g/dL (13.0-17.0); Lymphocytes # (A) 1.93 X 10*3/uL (0.90-5.00); Lymphocytes % (A) 23.8 %; MCHC 32.8 g/dL (32.0-37.0); MCV 94.4 FL (80.0-97.0); Mean Platelet Volume 11.6 FL (9.5-12.2); Monocytes # (A) 0.52 X 10*3/uL (0.20-1.00); Monocytes % (A) 6.4 %; NRBC Per 100 WBC 0 X 10*3/uL (0.00-0.01); Neutrophils # (A) 5.09 X 10*3/uL (1.80-7.70); Platelet Count 276 X 10*3/uL (140-440); RBC 4.49 X 10*6/uL (4.40-5.60); RDW 14.5 % (11.5-14.5)
[2025-02-26 08:27] LABS: BUN/Creat Ratio 17.91 Ratio (12.00-20.00); Blood Urea Nitrogen 19.7 mg/dL (9.0-27.0); Calcium 9.1 mg/dL (8.7-10.3); Carbon Dioxide 27.1 mmol/L (21.6-31.8); Chloride 99 mmol/L (96-109); Glucose 131 mg/dL (70-110); Potassium 3.9 mmol/L (3.5-5.5); Sodium 141 mmol/L (135-145)
[2025-02-26 11:07] LABS: Glucose,Whole Blood 125 mg/dL (70-110)
[2025-02-26] MEDS: FUROSEMIDE 10 MG/ML 4 ML VIAL IV SCH (11:35)
[2025-02-26] MEDS: IOPAMIDOL CONTRAST (ORAL USE) VIAL PO PRN (11:45)
[2025-02-26] MEDS ORDERED: RX INFO: IV CONTRAST WAS GIVEN 1 EACH MISC MISCELLANE PRN (11:46)
[2025-02-26] MEDS ORDERED: IPRATROPIUM-ALBUTEROL 3 ML NEB INHALATION PRN (11:48)
[2025-02-26] MEDS: IPRATROPIUM-ALBUTEROL 3 ML NEB INHALATION SCH (12:46)
--- NOTE | 2025-02-26 12:46 | XR ---
EXAMINATION TYPE: XR chest 1V portable DATE OF EXAM: 02/26/2025 12:32 PM COMPARISON: 12/05/2024 CLINICAL INDICATION: Male, 55 years old with history of chf, TECHNIQUE: XR chest 1V portable view(s) obtained. FINDINGS: The heart size is normal. The pulmonary vasculature is normal. Left lower lobe infiltrate and small left pleural effusion are likely present.. IMPRESSION: 1. Left lower lobe infiltrate and small left pleural effusion. Follow-up recommended. [facility], , 02/26/2025 12:44 PM
--- NOTE | 2025-02-26 14:03 | CT ---
EXAMINATION TYPE: CT ChestAbdPelvis w con DATE OF EXAM: 02/26/2025 COMPARISON: CTA chest dated 08/16/2024. CLINICAL INDICATION: Male, 55 years old with history of left lung mass CT DLP: 4106.4 mGycm Automated exposure control for dose reduction was used. CONTRAST: CT scan of the chest, abdomen and pelvis is performed with Oral Contrast and with IV Contrast, patien t injected with 100ml mL of Isovue 300. FINDINGS: CT chest: The large consolidative density in adjacent nodules in the left lower lobe posteriorly have resolved in the interval. There is mild interstitial scarring in its place. There is mild stable focal areas of pleural-parenchymal scarring in the right lower lobe posteriorly. There are 2 stable sub-4 mm nodules in the right upper lobe. There is no new lung mass or nodule. There is no pleural effusion, pleural thickening or pneumothorax. The great vessels and chest are normal there is no mediastinal, hilar or axillary adenopathy. No focal osseous lesions are seen. CT abdomen and pelvis: Gallbladder is normal without distention, pericholecystic fluid, wall thickening or gallstone. There is no biliary ductal dilatation. There is no focal mass or organomegaly involving the liver, pancreas, spleen or adrenal glands.. There is no solid renal mass or hydronephrosis. There is no retroperitoneal adenopathy or hemorrhage in the caliber of the abdominal aorta is normal. The bowel loops are normal in caliber and there is no dilatation or obstruction. No inflammatory thrasher ges identified in the bowel wall and mesentery. There is no free intracranial air or fluid. There is moderate to marked diverticulosis of the descending and sigmoid colon without CT evidence of acute di verticulitis. There is no pelvic mass or adenopathy. There is no free fluid within the pelvis. No focal osseous lesions are seen. Soft tissue the abdomen and pelvis are normal. IMPRESSION: 1. Resolution of the left lower lobe opacity likely indicating resolved pneumonia. 2. No acute cardiopulmonary disease. 3. No significant abnormality seen within the abdomen or pelvis. [facility], , 02/26/2025 2:01 PM
[2025-02-26] MEDS: HYDROmorphone 1 MG/ML 1 ML SYRINGE IVP STA (14:14)
[2025-02-26] MEDS: CEFEPIME 2 GM in SODIUM CHLORIDE 0.9% 100 ML IVPB SCH (16:07)
[2025-02-26 16:24] LABS: Glucose,Whole Blood 166 mg/dL (70-110)
[2025-02-26] MEDS: SYMBICORT 160-4.5 MCG INHALER INHALATION SCH (20:09)
[2025-02-26 21:16] LABS: Glucose,Whole Blood 106 mg/dL (70-110)
[2025-02-26] MEDS: tiZANidine 4 MG TAB PO SCH (21:36)
[2025-02-27] MEDS: ONDANSETRON 4 MG/2 ML VIAL IVP PRN (01:29)
--- NOTE | 2025-02-27 02:50 | PN ---
PROGRESS NOTE DATE OF SERVICE: 02/26/2025 SUBJECTIVE: This 55-year-old gentleman admitted with bilateral leg edema, also had osteoarthritis and joint pains also. The patient had a lower extremity CT scan that showed only DJD and diffuse edema noted. The venous Doppler done on the same day showed no DVT. Irregular lung mass in the posterior left lung was noted previously. A 2D echo with Doppler done last year, which I reviewed personally showed ejection fraction 45% to 50% indicating some CHF. Chest x-ray ID shows some CHF. The patient will be closely monitored. PAST MEDICAL HISTORY: Reviewed. REVIEW OF SYSTEMS: A 14-point review of systems negative except as mentioned earlier. CURRENT MEDICATIONS: Reviewed. PHYSICAL EXAMINATION: VITAL SIGNS: Pulse is 74, blood pressure 110/85, and respirations 18. CHEST: A few scattered rhonchi. ABDOMEN: Soft, obese. LEGS: Bilateral leg edema. NERVOUS SYSTEM: Nonfocal. LABORATORY DATA: Accu-Cheks noted. NT proBNP was only 33. ASSESSMENT: 1. Bilateral leg edema, possibly congestive heart failure acute exacerbation with acute on chronic systolic vascular dysfunction as well as possible cor pulmonale. 2. History of left lung posterior base cell mass, lesion. 3. Atrial fibrillation. 4. History of congestive heart failure. 5. Diabetes mellitus, type 2. 6. Fibromyalgia. 7. Hypertension. 8. Hyperlipidemia. 9. History of left lung pneumonia and empyema. 10.History of degenerative joint disease. RECOMMENDATIONS AND DISCUSSION: Recommend to continue current management and continue symptomatic treatment. We will add diuretics, bronchodilators and continue to monitor. Recommend CT scan of the chest, abdomen, and pelvis. Cardiology, Pulmonology consultations. Lasix. Continue to monitor. Guarded prognosis. Further recommendations to follow. 24 hours. See orders for details. MMODL / IJN: [id number] /
[2025-02-27 06:20] LABS: Glucose,Whole Blood 145 mg/dL (70-110)
[2025-02-27 10:17] LABS: Basophils # (A) 0.05 X 10*3/uL (0.00-0.10); Basophils % (A) 0.6 %; Eosinophils # (A) 0.29 X 10*3/uL (0.04-0.35); Eosinophils % (A) 3.4 %; Lymphocytes # (A) 1.81 X 10*3/uL (0.90-5.00); Lymphocytes % (A) 21.1 %; MCH 30.4 pg (27.0-32.0); MCHC 32.6 g/dL (32.0-37.0); MCV 93.3 FL (80.0-97.0); Mean Platelet Volume 11.5 FL (9.5-12.2); Monocytes # (A) 0.52 X 10*3/uL (0.20-1.00); Monocytes % (A) 6.1 %; NRBC Per 100 WBC 0 X 10*3/uL (0.00-0.01); Neutrophils # (A) 5.89 X 10*3/uL (1.80-7.70); Neutrophils % (A) 68.5 %; Platelet Count 281 X 10*3/uL (140-440); RBC 4.61 X 10*6/uL (4.40-5.60); RDW 14.6 % (11.5-14.5); WBC 8.59 X 10*3/uL (4.50-10.00)
[2025-02-27 10:29] LABS: Blood Urea Nitrogen 19.3 mg/dL (9.0-27.0); Glucose 131 mg/dL (70-110)
[2025-02-27 10:30] LABS: Calcium 9.3 mg/dL (8.7-10.3); Carbon Dioxide 31.4 mmol/L (21.6-31.8); Chloride 97 mmol/L (96-109); Potassium 3.6 mmol/L (3.5-5.5); Sodium 142 mmol/L (135-145)
[2025-02-27 11:27] LABS: Glucose,Whole Blood 141 mg/dL (70-110)
--- NOTE | 2025-02-27 14:26 | PN ---
PROGRESS NOTE DATE OF SERVICE: 02/27/2025 SUBJECTIVE: This is a 55-year-old gentleman admitted with bilateral leg edema, is not very compliant with the medications. Apparently, the CT scan of the abdomen and pelvis showed resolution of the left lower lobe opacity indicating possibly it is a pneumonia. The most recent chest x-ray, which I reviewed personally showed some evidences of increased bronchovascular markings also. PAST MEDICAL HISTORY: Reviewed. REVIEW OF SYSTEMS: A 14-point review of systems negative except as mentioned earlier. CURRENT MEDICATIONS: Reviewed. PHYSICAL EXAMINATION: VITAL SIGNS: Pulse is 94, blood pressure 153/93, and respirations 18. HEENT: Conjunctivae normal. NECK: No JVD. CARDIOVASCULAR: S1 and S2. RESPIRATIONS: A few scattered rhonchi. ABDOMEN: Soft and obese. LEGS: Bilateral leg edema, subcutaneous infections also present. LABORATORY DATA: Accu-Cheks noted. ASSESSMENT: 1. Bilateral leg edema, possibly congestive heart failure acute exacerbation with [id number] systolic and diastolic dysfunction as well as possible cor pulmonale. 2. History of left posterior base mass lesion, possible pneumonia, improved. 3. Skin lesions and superficial cellulitis and pyoderma. 4. Atrial fibrillation. 5. History of congestive heart failure. 6. Diabetes mellitus, type 2. 7. Fibromyalgia. 8. Hypertension. 9. Hyperlipidemia. 10.History of left lung pneumonia and empyema. 11.History of degenerative joint disease. RECOMMENDATIONS AND DISCUSSION: Recommend to continue current management and continue symptomatic treatment. Continue with diuretics, limit the fluid to 1500 mL and repeat labs. Closely monitor with multiple consultants. Continue with Lasix. Guarded prognosis. Further recommendations to follow. MMODL / IJN: [id number] /
--- NOTE | 2025-02-27 14:57 | P.PN ---
Subjective Progress Note Date: 02/25/25 Principal diagnosis: Reason for follow-up with lower extremity swelling and question of cellulitis Patient is a 55-year-old male with a past medical history significant for hypertension hyperlipidemia fibromyalgia diabetes mellitus atrial fibrillation chronic pain syndrome presented to hospital with left lower extremity pain CT did shows a marked osteoarthritis of the left hip and swelling to the left leg but no redness ID was consulted with a question of possible cellulitis. On today's evaluation that is 02/25/2025, patient has been afebrile, patient is breathing comfortably and is currently on room air, patient denies having any chest pain and cough, patient denies nausea vomiting or diarrhea and no abdominal pain complaining of lower extremity swelling and pain and want more pain medication. No new lab has been obtained today blood culture has been negative Objective - Vital Signs Vital signs: Vital Signs Temp 97.5 F L 02/25/25 14:02 Pulse 72 02/25/25 14:02 Resp 18 02/25/25 14:02 BP 128/85 02/25/25 14:02 Pulse Ox 94 L 02/25/25 07:16 FiO2 Intake & Output 02/24/25 02/25/25 02/25/25 18:59 06:59 18:59 Intake Total 1000 Balance 1000 Intake: Oral 1000 Other: Voiding Method Toilet # Voids 1 2 3 - Exam GENERAL DESCRIPTION: Middle-age male lying in bed in no distress RESPIRATORY SYSTEM: Unlabored breathing , decreased breath sounds at bases HEART: S1 S2 regular rate and rhythm , ABDOMEN: Soft , no tenderness EXTREMITIES: Diffuse swelling to bilateral lower extremity no redness - Labs CBC & Chem 7: 02/27/25 06:01 02/27/25 06:01 Labs: Abnormal Lab Results - Last 24 Hours (Table) 02/24/25 02/24/25 02/24/25 Range/Units 17:03 20:09 23:07 POC Glucose (mg/dL) 115 H 125 H 119 H (70-110) mg/dL 02/25/25 02/25/25 Range/Units 06:20 12:00 POC Glucose (mg/dL) 128 H 139 H (70-110) mg/dL Microbiology - Last 24 Hours (Table) 02/22/25 13:30 Blood Culture - Preliminary Blood Assessment and Plan (1) Localized swelling of both lower legs Current Visit: Yes Status: Acute Code(s): R22.43 - LOCALIZED SWELLING, MASS AND LUMP, LOWER LIMB, BILATERAL SNOMED Code(s): 00276010059285736 (2) Dependent edema Current Visit: Yes Status: Acute Code(s): R60.9 - EDEMA, UNSPECIFIED SNOMED Code(s): 917626009 Plan: 1patient presented to hospital with intractable pain to the left lower extremity which is from the left knee to the foot area questionably neurological/referred pain patient did have swelling to the left lower extremity however no features of cellulitis there was no redness noticed no warmth patient did not have any fever and no elevated white count clinically doubt active cellulitis at this point 2patient was advised Jean Carlos wrap for compression to get some of the swelling down with the patient has refused because of discomfort 3patient remains to be afebrile white count normal blood culture negative no need for systemic antibiotic therapy at this point Dictation was produced using [employer] dictation software. please excuse any grammatical, word or spelling errors. Time with Patient: Less than 30
[2025-02-27 16:28] LABS: Glucose,Whole Blood 152 mg/dL (70-110)
[2025-02-27] MEDS ORDERED: DEXTROSE 50% SYRINGE 50 ML IVP PRN ×2 (16:38)
[2025-02-27] MEDS: INSULIN LISPRO (HumaLOG) 100 UNIT/ML 10 mL VL SQ SCH (16:49)
[2025-02-27 21:16] LABS: Glucose,Whole Blood 153 mg/dL (70-110)
[2025-02-27] MEDS: INSULIN GLARGINE (LANTUS) 100 UNIT/ML SYR SQ SCH (22:11)
[2025-02-28 06:10] LABS: Glucose,Whole Blood 146 mg/dL (70-110)
[2025-02-28 08:10] LABS: Basophils # (A) 0.05 X 10*3/uL (0.00-0.10); Basophils % (A) 0.7 %; Eosinophils # (A) 0.43 X 10*3/uL (0.04-0.35); Eosinophils % (A) 5.7 %; HCT 42.8 % (39.6-50.0); HGB 13.9 g/dL (13.0-17.0); Lymphocytes # (A) 1.95 X 10*3/uL (0.90-5.00); Lymphocytes % (A) 25.7 %; MCH 30.8 pg (27.0-32.0); MCHC 32.5 g/dL (32.0-37.0); MCV 94.7 FL (80.0-97.0); Monocytes # (A) 0.63 X 10*3/uL (0.20-1.00); Monocytes % (A) 8.3 %; NRBC Per 100 WBC 0 X 10*3/uL (0.00-0.01); Neutrophils % (A) 59.3 %; Platelet Count 238 X 10*3/uL (140-440); RBC 4.52 X 10*6/uL (4.40-5.60); RDW 14.5 % (11.5-14.5); WBC 7.58 X 10*3/uL (4.50-10.00)
[2025-02-28 08:24] LABS: ALT 12 U/L (10-49); AST 15 U/L (14-35); Albumin 3.8 g/dL (3.8-4.9); Albumin/Globulin Ratio 1.73 Ratio (1.60-3.17); Alkaline Phosphatase 105 U/L (41-126); Blood Urea Nitrogen 20.1 mg/dL (9.0-27.0); Calcium 8.9 mg/dL (8.7-10.3); Carbon Dioxide 32.2 mmol/L (21.6-31.8); Chloride 97 mmol/L (96-109); Globulin 2.2 g/dL (1.6-3.3); Glucose 113 mg/dL (70-110); Potassium 3.4 mmol/L (3.5-5.5); Sodium 142 mmol/L (135-145); Total Bilirubin 0.4 mg/dL (0.3-1.2)
[2025-02-28] MEDS ORDERED: Potassium Replacement Protocol 1 EACH MISC MISCELLANE PRN (09:53)
[2025-02-28] MEDS: POTASSIUM CHLORIDE ER 20 MEQ TAB.ER PO SCH ×2 (10:12→18:16)
[2025-02-28 11:09] LABS: Glucose,Whole Blood 123 mg/dL (70-110)
--- NOTE | 2025-02-28 13:49 | P.GSCN ---
History of Present Illness Consult date: 02/28/25 History of present illness: CHIEF COMPLAINT: Left leg pain HISTORY OF PRESENT ILLNESS: This is a 55-year-old male who presented with left leg pain. Patient is being treated for cellulitis of bilateral lower extremities. Patient reports incision and drainage of of left thigh wound/fluid collection [address] Montano. Patient reports that he had home car e come through for packing. Patient did have incision and drainage of a seroma on 05/24/[address] Montano. Patient reports pain in the left thigh. He reports that it had been draining a few days ago. But now has stopped. There is a small boil noted on the left upper thigh. Also old scar that is healed. No drainage. No erythema. Patient had a CT scan of the left lower extremity interval development of diffuse edema in the leg from the knee to the ankle without discrete fluid collection or abscess. Patient also seen by orthopedic service during this admission no surgical intervention recommended. And they recommended for patient to follow-up with his orthopedic for his left hip. And they felt the leg edema was due to fluid overload. Patient is afebrile white count is normal. He does have history of MRSA. He is a diabetic. PAST MEDICAL HISTORY: Atrial Fibrillation, Chest Pain / Angina, Heart Failure, Diabetes Mellitus, Fibromyalgia, Hyperlipidemia, Hypertension, Pneumonia, Respiratory Disorder.eft outer thigh wound mostly healed, Left lung pneumonia/empyema, gout, chronic fibromyalgia, chronic lower back pain, degenerative arthritis, history of degenerative disc disease involving the lumbar spine, hypertension, hyperlipidemia, atrial fibrillation as the patient went into atrial fibrillation during her hospitalization for a left lower lobe pneumonia back in October 2017 and subsequently he converted back to normal sinus. He has chronic anxiety. NEUROPATHY PAST SURGICAL HISTORY: See below MEDICATIONS: See below ALLERGIES: See below SOCIAL HISTORY: No illicit drug use. REVIEW OF SYSTEMS: CONSTITUTIONAL: Denies fever or chills. HEENT: Denies blurred vision, vision changes, or eye pain. Denies hemoptysis CARDIOVASCULAR: Denies chest pain or pressure. RESPIRATORY: No shortness of breath. GASTROINTESTINAL: See HPI for pertinent findings HEMATOLOGIC: Denies bleeding disorders. GENITOURINARY: Denies any blood in urine or increased urinary frequency. SKIN: Denies pruitis. Denies rash. PHYSICAL EXAM: VITAL SIGNS: Reviewed GENERAL: Well-developed in no acute distress. HEENT: No sclera icterus. Extraocular movements grossly intact. Moist buccal mucosa. Head is atraumatic, normocephalic. No nasal drainage. ABDOMEN: Soft. Nondistended. Nontender NEUROLOGIC: Alert and oriented. Cranial nerves II through XII grossly intact. Extremities: Left upper thigh mild tenderness palpation. Old, healed scar noted. No erythema. There is a small area of swelling with fluid collection noted laterally to the old scar. Mild tenderness with palpation. The size of a quarter. Bilateral lower extremity edema noted with cellulitis changes at the tibial area. LABORATORY DATA: WBC 7.58 Hgb 13.9 platelets 238 Hemoglobin A1c 6.4 IMAGING: CT scan stable marked osteoarthritis of the left hip. Stable left knee prosthesis. Interval development of diffuse edema in the leg in the knee to the ankle without discrete fluid collection or abscess. CT scan chest abdomen and pelvis resolution of left lower lobe opacity likely indicating resolving pneumonia. No acute cardiopulmonary disease. No significant abnormality seen in the abdomen and pelvis ASSESSMENT: 1. Left leg pain 2. Chronic Left thigh skin lesion with chronic infections 3. Bilateral lower extremity cellulitis PLAN: - No surgical intervention planned - Continue antibiotics per ID service Physician Java Web Developer note has been reviewed by physician. Signing provider agrees with the documented findings, assessment, and plan of care. Past Medical History Past Medical History: Atrial Fibrillation, Chest Pain / Angina, Heart Failure, Diabetes Mellitus, Fibromyalgia, Hyperlipidemia, Hypertension, Pneumonia, Respiratory Disorder Additional Past Medical History / Comment(s): left outer thigh wound mostly healed, Left lung pneumonia/empyema, gout, chronic fibromyalgia, chronic lower back pain, degenerative arthritis, history of degenerative disc disease involving the lumbar spine, hypertension, hyperlipidemia, atrial fibrillation as the patient went into atrial fibrillation during her hospitalization for a left lower lobe pneumonia back in October 2017 and subsequently he converted back to normal sinus. He has chronic anxiety. NEUROPATHY History of Any Multi-Drug Resistant Organisms: MRSA, Other MDRO Year Discovered:: 12/07/24 MDRO Source:: sputum / legs Past Surgical History: Back Surgery, Joint Replacement, Orthopedic Surgery Additional Past Surgical History / Comment(s): rt hip replacement, rt knee replacement, left knee surgery with metal, neck fusion, lower back surgery, traumatic amputation rt index finger, left index finger tip amputation from injury. I & D LT THIGH X 6, LUNG SURGERY, COLONOSCOPY Past Anesthesia/Blood Transfusion Reactions: Blood Transfusion Reaction Additional Past Anesthesia/Blood Transfusion Reaction / Comm: pt states some limited neck movement due to previous surgery, " I got degenerative bone disease from a blood transfusion", "I woke up in the middle of knee surgery" Past Psychological History: No Psychological Hx Reported Smoking Status: Current every day smoker Past Alcohol Use History: None Reported Past Drug Use History: Marijuana - Past Family History Mother Family Medical History: No Reported History Additional Family Medical History / Comment(s): enlarged heart Father Family Medical History: No Reported History Additional Family Medical History / Comment(s): Father lived to be 101 yrs old. Medications and Allergies Home Medications Medication Instructions Recorded Confirmed Type Albuterol Sulfate [Albuterol 2 puff INHALATION RT-Q6H PRN 06/05/20 02/22/25 History Sulfate Hfa] Pregabalin [Lyrica] 200 mg PO BID 06/05/20 02/22/25 History Milnacipran HCl [Savella] 50 mg PO BID 04/05/22 02/22/25 History tiZANidine [Zanaflex] 6 mg PO TID PRN 04/05/22 02/26/25 History Amitriptyline HCl [Elavil] 100 mg PO HS 02/25/24 02/22/25 History Loratadine [Claritin] 10 mg PO DAILY 02/25/24 02/22/25 History Pramipexole Di-HCl [Mirapex] 0.75 mg PO HS 02/25/24 02/22/25 History Amiodarone [Cordarone] 200 mg PO DAILY #30 tab 08/13/24 02/22/25 Rx Apixaban [Eliquis] 5 mg PO BID #60 tab 08/13/24 02/22/25 Rx Aspirin 81 mg PO DAILY #30 tab 08/13/24 02/22/25 Rx Furosemide [Lasix] 40 mg PO BID #60 tablet 08/13/24 02/22/25 Rx Metoprolol Tartrate [Lopressor] 25 mg PO TID 08/16/24 02/22/25 History Famotidine [Pepcid] 20 mg PO BID 10 Days #20 tablet 12/09/24 02/22/25 Rx Insulin Detemir (Levemir) [Levemir] 25 unit SQ BID #10 ml 12/09/24 02/22/25 Rx Atorvastatin [Lipitor] 40 mg PO DAILY 02/22/25 02/22/25 History INSULIN ASPART (NovoLOG) [NovoLOG 20 unit SQ AC-TID 02/22/25 02/22/25 History (formulary)] oxyCODONE ER [OxyCONTIN] 10 mg PO Q12HR 02/22/25 02/22/25 History oxyCODONE-APAP 10-325MG [Percocet 1 tab PO QID 02/22/25 02/22/25 History 10-325 mg] Allergies Allergy/AdvReac Type Severity Reaction Status Date / Time morphine Allergy Itching Verified 02/22/25 17:10 Surgical - Exam Vital Signs Temp Pulse Resp BP Pulse Ox 97.4 F L 91 18 124/89 96 02/22/25 12:29 02/22/25 12:29 02/22/25 12:29 02/22/25 12:29 02/22/25 12:29 Results - Labs 02/28/25 02:37 02/28/25 02:37 Abnormal Lab Results - Last 24 Hours (Table) 02/27/25 02/27/25 02/27/25 Range/Units 06:01 16:26 21:15 Eosinophils # (0.04-0.35) X 10*3/uL ESR 36 H (0-20) mm/Hr Potassium (3.5-5.5) mmol/L Carbon Dioxide (21.6-31.8) mmol/L Anion Gap (4.00-12.00) mmol/L BUN/Creatinine Ratio (12.00-20.00) Ratio Glucose (70-110) mg/dL POC Glucose (mg/dL) 152 H 153 H (70-110) mg/dL Hemoglobin A1c (<=6.0) % Total Protein (6.2-8.2) g/dL 02/28/25 02/28/25 02/28/25 Range/Units 02:37 02:37 02:37 Eosinophils # 0.43 H (0.04-0.35) X 10*3/uL ESR (0-20) mm/Hr Potassium 3.4 L (3.5-5.5) mmol/L Carbon Dioxide 32.2 H (21.6-31.8) mmol/L Anion Gap 12.80 H (4.00-12.00) mmol/L BUN/Creatinine Ratio 20.10 H (12.00-20.00) Ratio Glucose 113 H (70-110) mg/dL POC Glucose (mg/dL) (70-110) mg/dL Hemoglobin A1c 6.4 H (<=6.0) % Total Protein 6.0 L (6.2-8.2) g/dL 02/28/25 02/28/25 Range/Units 06:08 11:08 Eosinophils # (0.04-0.35) X 10*3/uL ESR (0-20) mm/Hr Potassium (3.5-5.5) mmol/L Carbon Dioxide (21.6-31.8) mmol/L Anion Gap (4.00-12.00) mmol/L BUN/Creatinine Ratio (12.00-20.00) Ratio Glucose (70-110) mg/dL POC Glucose (mg/dL) 146 H 123 H (70-110) mg/dL Hemoglobin A1c (<=6.0) % Total Protein (6.2-8.2) g/dL Microbiology - Last 24 Hours (Table) 02/22/25 13:30 Blood Culture - Final Blood Diabetes panel 02/28/25 02/28/25 Range/Units 02:37 02:37 Sodium 142 (135-145) mmol/L Potassium 3.4 L (3.5-5.5) mmol/L Chloride 97 (96-109) mmol/L Carbon Dioxide 32.2 H (21.6-31.8) mmol/L BUN 20.1 (9.0-27.0) mg/dL Creatinine 1.0 (0.6-1.5) mg/dL Glucose 113 H (70-110) mg/dL Hemoglobin A1c 6.4 H (<=6.0) % Calcium 8.9 (8.7-10.3) mg/dL AST 15 (14-35) U/L ALT 12 (10-49) U/L Alkaline Phosphatase 105 (41-126) U/L Total Protein 6.0 L (6.2-8.2) g/dL Albumin 3.8 (3.8-4.9) g/dL Calcium panel 02/28/25 Range/Units 02:37 Calcium 8.9 (8.7-10.3) mg/dL Albumin 3.8 (3.8-4.9) g/dL Pituitary panel 02/28/25 Range/Units 02:37 Sodium 142 (135-145) mmol/L Potassium 3.4 L (3.5-5.5) mmol/L Chloride 97 (96-109) mmol/L Carbon Dioxide 32.2 H (21.6-31.8) mmol/L BUN 20.1 (9.0-27.0) mg/dL Creatinine 1.0 (0.6-1.5) mg/dL Glucose 113 H (70-110) mg/dL Calcium 8.9 (8.7-10.3) mg/dL Adrenal panel 02/28/25 Range/Units 02:37 Sodium 142 (135-145) mmol/L Potassium 3.4 L (3.5-5.5) mmol/L Chloride 97 (96-109) mmol/L Carbon Dioxide 32.2 H (21.6-31.8) mmol/L BUN 20.1 (9.0-27.0) mg/dL Creatinine 1.0 (0.6-1.5) mg/dL Glucose 113 H (70-110) mg/dL Calcium 8.9 (8.7-10.3) mg/dL Total Bilirubin 0.4 (0.3-1.2) mg/dL AST 15 (14-35) U/L ALT 12 (10-49) U/L Alkaline Phosphatase 105 (41-126) U/L Total Protein 6.0 L (6.2-8.2) g/dL Albumin 3.8 (3.8-4.9) g/dL
[2025-02-28 16:07] LABS: Glucose,Whole Blood 136 mg/dL (70-110)
--- NOTE | 2025-02-28 19:38 | CA ---
Transthoracic Echo Report Name: Javi Costa Age: 55 Gender: M : 1970 Exam Date: 02/28/2025 15:42 Exam Location: [facility] Ht (in): 77 Wt (lb): 359 Ordering Physician: Linda Gonzalez Attending/Referring Phys: Devulcanizer Tender Coty Lopez RDCS Procedure CPT: Indications: lower extremity swelling Cardiac Hx: Technical Quality: Poor, Technically difficult study Contrast 1: Definity Total Dose (mL): 2 Contrast 2: Total Dose (mL): MEASUREMENTS (Male / Female) Normal Values 2D ECHO LV Diastolic Diameter PLAX 5.2 cm 4.2 - 5.9 / 3.9 - 5.3 cm LV Systolic Diameter PLAX 4.0 cm IVS Diastolic Thickness 1.4 cm 0.6 - 1.0 / 0.6 - 0.9 cm LVPW Diastolic Thickness 1.4 cm 0.6 - 1.0 / 0.6 - 0.9 cm LV Relative Wall Thickness 0.5 RV Internal Dim ED PLAX 2.9 cm LA Systolic Diameter LX 4.3 cm 3.0 - 4.0 / 2.7 - 3.8 cm LA Volume 87.9 cm??? 18 - 58 / 22 - 52 cm??? LA Volume Index 28.9 cm???/m??? 16 - 28 cm???/m??? M-MODE Aortic Root Diameter MM 3.8 cm LA Systolic Diameter MM 4.3 cm LA Ao Ratio MM 1.2 AV Cusp Separation MM 2.2 cm DOPPLER MV Area PHT 2.7 cm??? Mitral E Point Velocity 85.0 cm/s Mitral A Point Velocity 76.4 cm/s Mitral E to A Ratio 1.1 MV Deceleration Time 284.0 ms TR Peak Velocity 309.6 cm/s TR Peak Gradient 38.3 mmHg FINDINGS Left Ventricle Left ventricular ejection fraction is estimated at 55-60 %. Normal left ventricular systolic function with no obvious regional wall motion abnormalities. Left ventricular cavity size normal. Mildly increased left ventricular wall thickness. Right Ventricle Mild right ventricular dilatation. Mild pulmonary hypertension. Right Atrium Moderate right atrial dilatation. Left Atrium Severely increased left atrial volume. Mitral Valve Structurally normal mitral valve. Normal mitral regurgitation. No mitral stenosis. Aortic Valve Trileaflet aortic valve. No aortic stenosis. No aortic regurgitation. Tricuspid Valve Structurally normal tricuspid valve. Mild tricuspid regurgitation. No tricuspid stenosis. Pulmonic Valve Structurally normal pulmonic valve. Trace pulmonic regurgitation. No pulmonic stenosis. Pericardium No pericardial or pleural effusion. Echo free space anterior to the right ventricle likely represents a fat pad. Aorta Mild aortic dilatation at the level of the sinuses of valsalva (root). CONCLUSIONS 1. Normal left ventricular size and systolic function 2. Mild mitral and tricuspid regurgitation with mild pulmonary hypertension Definity ECHO contrast used for improved visualization of the endocardial borders (inadequate visualization of two or more contiguous segments). Previewed by: Dr. Young Sotelo MD (Electronically Signed) Final Date: 28 February 2025 19:37
[2025-02-28 20:49] LABS: Glucose,Whole Blood 158 mg/dL (70-110)
--- NOTE | 2025-03-01 05:39 | PN ---
PROGRESS NOTE DATE OF SERVICE: 02/28/2025 SUBJECTIVE: This 55-year-old gentleman with bilateral leg edema, is being closely monitored at this time. The chest, abdomen, and pelvis CAT scan showed no abnormality. Multiple consultants are following the patient closely. The cultures are negative so far. PAST MEDICAL HISTORY: Reviewed. REVIEW OF SYSTEMS: A 14-point review of systems is negative except as mentioned earlier. CURRENT MEDICATIONS: Reviewed. PHYSICAL EXAMINATION: VITAL SIGNS: Pulse is 81, blood pressure 130/80 respirations 18. HEENT: Conjunctivae normal. NECK: No JVD. CARDIOVASCULAR: S1, S2. HEART: Scattered rhonchi. ABDOMEN: Soft. LEGS: Bilateral leg edema and skin lesions also present. LABORATORY DATA: Noted. Accu-Cheks noted. ASSESSMENT: 1. Bilateral leg edema possibly CHF acute exacerbation with acute on chronic systolic and diastolic dysfunction as well as possible cor pulmonale. 2. History of left posterior lobe mass lesion, possible pneumonia, resolved according to the new latest CAT scan of chest. 3. Skin lesions, superficial cellulitis and pyoderma. 4. Atrial fibrillation, history of CHF. 5. Diabetes mellitus, type 2. 6. Fibromyalgia. 7. Hypertension. 8. Hyperlipidemia. 9. History of left lung pneumonia and empyema. 10.History of degenerative joint disease. RECOMMENDATIONS AND DISCUSSION: Recommend to continue with symptomatic treatment. Otherwise at this time, I would recommend to continue the diuretics, fluid restriction. The patient apparently is not very compliant, but I will follow closely with multiple consultants. Repeat labs will be ordered. Guarded prognosis. Further recommendations to follow. See orders for details. MMODL / IJN: [id number] /
[2025-03-01 06:42] LABS: Glucose,Whole Blood 134 mg/dL (70-110)
[2025-03-01 08:18] VITALS: BMI 42.5
[2025-03-01 08:47] LABS: Basophils # (A) 0.07 X 10*3/uL (0.00-0.10); Basophils % (A) 0.9 %; Eosinophils # (A) 0.39 X 10*3/uL (0.04-0.35); HCT 42.4 % (39.6-50.0); HGB 13.8 g/dL (13.0-17.0); Lymphocytes # (A) 2.05 X 10*3/uL (0.90-5.00); Lymphocytes % (A) 26.5 %; MCH 31.2 pg (27.0-32.0); MCHC 32.5 g/dL (32.0-37.0); MCV 95.7 FL (80.0-97.0); Mean Platelet Volume 11.8 FL (9.5-12.2); Monocytes # (A) 0.52 X 10*3/uL (0.20-1.00); Monocytes % (A) 6.7 %; NRBC Per 100 WBC 0 X 10*3/uL (0.00-0.01); Neutrophils # (A) 4.69 X 10*3/uL (1.80-7.70); Neutrophils % (A) 60.6 %; Platelet Count 252 X 10*3/uL (140-440); RBC 4.43 X 10*6/uL (4.40-5.60); RDW 14.4 % (11.5-14.5); WBC 7.74 X 10*3/uL (4.50-10.00)
[2025-03-01 08:51] LABS: Blood Urea Nitrogen 21.2 mg/dL (9.0-27.0); Calcium 9.1 mg/dL (8.7-10.3); Carbon Dioxide 32.6 mmol/L (21.6-31.8); Chloride 99 mmol/L (96-109); Glucose 142 mg/dL (70-110); Potassium 3.8 mmol/L (3.5-5.5); Sodium 144 mmol/L (135-145)
[2025-03-01 11:42] LABS: Glucose,Whole Blood 143 mg/dL (70-110)
--- NOTE | 2025-03-01 12:39 | P.PN ---
Subjective Progress Note Date: 03/01/25 SURGICAL PROGRESS NOTE CHIEF COMPLAINT: Left leg pain HISTORY OF PRESENT ILLNESS: Patient continues to report left leg pain. No drainage from the left leg skin lesion. Afebrile. WBC 7.74 PHYSICAL EXAM: VITAL SIGNS: Reviewed. GENERAL: Well-developed in no acute distress. Extremities, left upper thigh with old healed scar. No erythema. Mild tenderness with palpation. Small area of fluid collection noted at the old scar about the size of a quarter. ASSESSMENT: 1. Chronic left thigh skin lesion with chronic infections. 2. Diabetes mellitus PLAN: - No surgical intervention planned - Continue antibiotics per ID service Physician Dancing Master note has been reviewed by physician. Signing provider agrees with the documented findings, assessment, and plan of care. Objective - Vital Signs Vital signs: Vital Signs Temp 97.9 F 03/01/25 07:05 Pulse 66 03/01/25 08:27 Resp 20 03/01/25 08:27 BP 126/76 03/01/25 07:05 Pulse Ox 95 03/01/25 07:05 FiO2 Intake & Output 02/28/25 03/01/25 03/01/25 18:59 06:59 18:59 Weight 162.84 kg Other: Voiding Method Toilet Toilet Toilet # Voids 3 2 - Labs CBC & Chem 7: 03/01/25 03:00 03/01/25 03:00 Labs: Abnormal Lab Results - Last 24 Hours (Table) 02/28/25 02/28/25 02/28/25 Range/Units 16:05 16:46 20:48 Eosinophils # (0.04-0.35) X 10*3/uL Potassium 3.2 L (3.5-5.1) mmol/L Carbon Dioxide (21.6-31.8) mmol/L Anion Gap (4.00-12.00) mmol/L BUN/Creatinine Ratio (12.00-20.00) Ratio Glucose (70-110) mg/dL POC Glucose (mg/dL) 136 H 158 H (70-110) mg/dL 03/01/25 03/01/25 03/01/25 Range/Units 03:00 03:00 06:41 Eosinophils # 0.39 H (0.04-0.35) X 10*3/uL Potassium (3.5-5.1) mmol/L Carbon Dioxide 32.6 H (21.6-31.8) mmol/L Anion Gap 12.40 H (4.00-12.00) mmol/L BUN/Creatinine Ratio 21.20 H (12.00-20.00) Ratio Glucose 142 H (70-110) mg/dL POC Glucose (mg/dL) 134 H (70-110) mg/dL 03/01/25 Range/Units 11:41 Eosinophils # (0.04-0.35) X 10*3/uL Potassium (3.5-5.1) mmol/L Carbon Dioxide (21.6-31.8) mmol/L Anion Gap (4.00-12.00) mmol/L BUN/Creatinine Ratio (12.00-20.00) Ratio Glucose (70-110) mg/dL POC Glucose (mg/dL) 143 H (70-110) mg/dL
--- NOTE | 2025-03-01 15:15 | PN ---
PROGRESS NOTE DATE OF SERVICE: 03/01/2025 SUBJECTIVE: This is a 55-year-old gentleman who was admitted with bilateral leg edema with possible CHF exacerbation, also had some pyoderma and skin lesions also. No chest pain. No palpitation. PHYSICAL EXAMINATION: VITAL SIGNS: Pulse is 66, blood pressure 120/73, and respirations 20. HEENT: Conjunctivae normal. NECK: No JVD. CARDIOVASCULAR: S1, S2. ABDOMEN: Soft. LEGS: Bilateral leg edema. NERVOUS SYSTEM: Nonfocal. LABORATORY DATA: Reviewed. ASSESSMENT: 1. Bilateral leg edema, possibly secondary to congestive heart failure acute exacerbation with [id number] systolic and diastolic dysfunction as well as possible cor pulmonale. 2. History of left posterior lobe mass lesion, possible pneumonia, resolved according to the latest CT scan of the chest. 3. Skin lesion, superficial cellulitis, and pyoderma. 4. Atrial fibrillation. 5. Diabetes mellitus, type 2. 6. Fibromyalgia. 7. Hypertension. 8. Hyperlipidemia. 9. Multiple complex medical issues. RECOMMENDATIONS AND DISCUSSION: Recommend to continue current medications and continue symptomatic treatment. Otherwise, repeat labs. Continue with diuretics. Fluid restriction. Closely follow with multiple consultants including Surgery. If the Surgery do not have any procedures, the patient might be able to go home with outpatient followup in the next within 24 to 48 hours. Once again, prognosis guarded. MMODL / IJN: [id number] /
[2025-03-01 16:45] LABS: Glucose,Whole Blood 145 mg/dL (70-110)
[2025-03-01 20:01] LABS: Glucose,Whole Blood 155 mg/dL (70-110)
[2025-03-02 06:07] LABS: Glucose,Whole Blood 128 mg/dL (70-110)
[2025-03-02 08:39] LABS: BUN/Creat Ratio 19.09 Ratio (12.00-20.00); Carbon Dioxide 29.2 mmol/L (21.6-31.8); Chloride 100 mmol/L (96-109); Glucose 147 mg/dL (70-110); Potassium 3.5 mmol/L (3.5-5.5); Sodium 141 mmol/L (135-145)
[2025-03-02 08:52] LABS: Basophils # (A) 0.09 X 10*3/uL (0.00-0.10); Basophils % (A) 0.9 %; Eosinophils # (A) 0.39 X 10*3/uL (0.04-0.35); Eosinophils % (A) 3.9 %; HCT 42.3 % (39.6-50.0); HGB 13.9 g/dL (13.0-17.0); Lymphocytes # (A) 1.96 X 10*3/uL (0.90-5.00); Lymphocytes % (A) 19.5 %; MCH 30.9 pg (27.0-32.0); MCHC 32.9 g/dL (32.0-37.0); Mean Platelet Volume 11.7 FL (9.5-12.2); NRBC Per 100 WBC 0 X 10*3/uL (0.00-0.01); Neutrophils # (A) 6.86 X 10*3/uL (1.80-7.70); Neutrophils % (A) 68.3 %; Platelet Count 249 X 10*3/uL (140-440); RDW 14.2 % (11.5-14.5); WBC 10.04 X 10*3/uL (4.50-10.00)
--- NOTE | 2025-03-02 10:17 | P.PN ---
Subjective Progress Note Date: 03/02/25 Patient hung stable. His leg wound has improved. There is decreased cellulitis. On exam vital signs appear stable. Abdomen soft. Leg thigh chronically inflamed skin has improved. There is no abscess to drain currently. He will continue supportive care. Objective - Vital Signs Vital signs: Vital Signs Temp 97.8 F 03/02/25 07:19 Pulse 80 03/02/25 07:19 Resp 18 03/02/25 07:19 BP 116/70 03/02/25 07:19 Pulse Ox 96 03/02/25 07:19 FiO2 Intake & Output 03/01/25 03/02/25 03/02/25 18:59 06:59 18:59 Intake Total 681 Balance 681 Weight 162.84 kg Intake: Oral 681 Other: Voiding Method Toilet Toilet - Labs CBC & Chem 7: 03/02/25 03:22 03/02/25 03:22 Labs: Abnormal Lab Results - Last 24 Hours (Table) 03/01/25 03/01/25 03/01/25 Range/Units 11:41 16:43 20:00 WBC (4.50-10.00) X 10*3/uL Eosinophils # (0.04-0.35) X 10*3/uL Glucose (70-110) mg/dL POC Glucose (mg/dL) 143 H 145 H 155 H (70-110) mg/dL 03/02/25 03/02/25 03/02/25 Range/Units 03:22 03:22 06:06 WBC 10.04 H (4.50-10.00) X 10*3/uL Eosinophils # 0.39 H (0.04-0.35) X 10*3/uL Glucose 147 H (70-110) mg/dL POC Glucose (mg/dL) 128 H (70-110) mg/dL
[2025-03-02 11:28] LABS: Glucose,Whole Blood 171 mg/dL (70-110)
[2025-03-02 16:36] LABS: Glucose,Whole Blood 154 mg/dL (70-110)
[2025-03-02 21:05] LABS: Glucose,Whole Blood 180 mg/dL (70-110)
[2025-03-03 05:58] LABS: Glucose,Whole Blood 175 mg/dL (70-110)
[2025-03-03 11:37] LABS: Glucose,Whole Blood 122 mg/dL (70-110)
[2025-03-03 12:13] LABS: Basophils # (A) 0.07 10*3/uL (0.00-0.10); Basophils % (A) 0.9 %; Eosinophils # (A) 0.35 10*3/uL (0.04-0.35); Eosinophils % (A) 4.6 %; HGB 14.6 g/dL (13.0-17.0); Lymphocytes # (A) 1.77 10*3/uL (0.90-5.00); Lymphocytes % (A) 23.4 %; MCH 31.1 pg (27.0-32.0); MCV 91.5 fL (80.0-97.0); Mean Platelet Volume 10.8 fL (9.5-12.2); Monocytes # (A) 0.45 10*3/uL (0.20-1.00); Monocytes % (A) 5.9 %; Neutrophils # (A) 4.92 10*3/uL (1.80-7.70); Neutrophils % (A) 64.9 %; Platelet Count 261 10*3/uL (140-440); RDW 13.6 % (11.5-14.5); WBC 7.58 10*3/uL (4.50-10.00)
--- NOTE | 2025-03-03 14:24 | P.PN ---
Subjective Progress Note Date: 03/03/25 Principal diagnosis: Reason for follow-up with lower extremity swelling and question of cellulitis Patient is a 55-year-old male with a past medical history significant for hypertension hyperlipidemia fibromyalgia diabetes mellitus atrial fibrillation chronic pain syndrome presented to hospital with left lower extremity pain CT did shows a marked osteoarthritis of the left hip and swelling to the left leg but no redness ID was consulted with a question of possible cellulitis. On today's evaluation that is 03/03/2024, patient did have a temperature of 97.9 F this morning and denies having any chills, patient is on room air and breathing comfortably no chest pain or cough, the patient did not have any nausea vomiting abdominal pain or any diarrhea still complaining of lower extremity swelling but has improved patient did have history of drainage of an infected seroma from the left posterior thigh in May 2024 that was done as an outpatient he is not very clear if he has received an antibiotic for it during this admission he did have a CT of the left lower extremity did not mention any abscess Patient has a normal white count 7.58 Objective - Vital Signs Vital signs: Vital Signs Temp 97.9 F 03/03/25 07:20 Pulse 73 03/03/25 07:20 Resp 20 03/03/25 07:20 BP 144/81 03/03/25 07:20 Pulse Ox 93 L 03/03/25 07:20 FiO2 Intake & Output 03/02/25 03/03/25 03/03/25 18:59 06:59 18:59 Other: Voiding Method Toilet # Voids 2 4 - Exam GENERAL DESCRIPTION: Middle-age male lying in bed in no distress RESPIRATORY SYSTEM: Unlabored breathing , decreased breath sounds at bases HEART: S1 S2 regular rate and rhythm , ABDOMEN: Soft , no tenderness EXTREMITIES: Left posterior thigh did have a scarring from the previous I&D there is no fluctuation redness or drainage - Labs CBC & Chem 7: 03/03/25 11:59 03/02/25 03:22 Labs: Abnormal Lab Results - Last 24 Hours (Table) 03/02/25 03/02/25 03/03/25 Range/Units 16:35 21:04 05:56 POC Glucose (mg/dL) 154 H 180 H 175 H (70-110) mg/dL 03/03/25 Range/Units 11:35 POC Glucose (mg/dL) 122 H (70-110) mg/dL Assessment and Plan (1) Localized swelling of both lower legs Current Visit: Yes Status: Acute Code(s): R22.43 - LOCALIZED SWELLING, MASS AND LUMP, LOWER LIMB, BILATERAL SNOMED Code(s): 01196725648063127 (2) Dependent edema Current Visit: Yes Status: Acute Code(s): R60.9 - EDEMA, UNSPECIFIED SNOMED Code(s): 941776868 (3) Abscess of left thigh Current Visit: No Status: Acute Code(s): L02.416 - CUTANEOUS ABSCESS OF LEFT LOWER LIMB SNOMED Code(s): 19164678486129359 Plan: 1patient presented to hospital with intractable pain to the left lower extremity which is from the left knee to the foot area questionably neurological/referred pain patient did have swelling to the left lower extremity however no features of cellulitis there was no redness noticed no warmth patient did not have any fever and no elevated white count clinically doubt active cellulitis to bilateral lower extremity 2patient was advised Jean Carlos wrap for compression to get some of the swelling down with the patient has refused because of discomfort 3patient did have a history of left posterior thigh infected seroma drainage back in May 2024 he did have a CT left lower extremity did not mention any abscess or fluid collection to the left posterior thigh review of the culture in May did grew Enterococcus that was sensitive to ampicillin recommend to discontinue cefepime May consider short course of oral Augmentin on discharge surgery has seen the patient during this admission and no plan for any surgical intervention Dictation was produced using [employer] dictation software. please excuse any grammatical, word or spelling errors. Time with Patient: Greater than 30
[2025-03-03 15:36] VITALS: BP 132/75; PULSE 64; RESP 16; TEMP 97.7
[2025-03-03 16:39] LABS: Glucose,Whole Blood 113 mg/dL (70-110)
[2025-03-03] MEDS ORDERED: AMOXIC-POT CLAV 875-125MG 1 EACH TAB PO SCH (21:00)
[2025-03-04 01:57] LABS: BUN/Creat Ratio 21.78 Ratio (12.00-20.00); Blood Urea Nitrogen 19.6 mg/dL (9.0-27.0); Calcium 9.6 mg/dL (8.7-10.3); Carbon Dioxide 27.3 mmol/L (21.6-31.8); Chloride 99 mmol/L (96-109); Glucose 114 mg/dL (70-110); Potassium 4.6 mmol/L (3.5-5.5); Sodium 140 mmol/L (135-145)
== END 2025-03-03 18:04 | disposition home or self-care (01) | DRG 351 ==
LOC: EC 12:27 → 6NMEDSUR 17:55 → OBSVTOIN 17:55 → 6NMEDSUR 18:31 → 4SSUR 19:47
PROVIDERS: ADMIT Hospitalist; ATTEND Hospitalist
DX: M16.12 Unilateral primary osteoarthritis, left hip (principal); E11.9 Type 2 diabetes mellitus without complications; I48.0 Paroxysmal atrial fibrillation; I11.0 Hypertensive heart disease with heart failure; I50.43 Acute on chronic combined systolic (congestive) and diastolic (congestive) heart failure; E78.5 Hyperlipidemia, unspecified; J44.9 Chronic obstructive pulmonary disease, unspecified; E66.01 Morbid (severe) obesity due to excess calories; Z68.41 Body mass index [BMI] 40.0-44.9, adult; L02.416 Cutaneous abscess of left lower limb; L03.116 Cellulitis of left lower limb; L03.115 Cellulitis of right lower limb; Z79.01 Long term (current) use of anticoagulants; M51.16 Intervertebral disc disorders with radiculopathy, lumbar region; G89.4 Chronic pain syndrome; F17.210 Nicotine dependence, cigarettes, uncomplicated; M79.7 Fibromyalgia; L08.0 Pyoderma; M1A.9XX0 Chronic gout, unspecified, without tophus (tophi); Z79.4 Long term (current) use of insulin; Z79.82 Long term (current) use of aspirin; Z79.899 Other long term (current) drug therapy; Z86.14 Personal history of Methicillin resistant Staphylococcus aureus infection; Z89.021 Acquired absence of right finger(s); Z89.022 Acquired absence of left finger(s); Z96.641 Presence of right artificial hip joint; Z96.653 Presence of artificial knee joint, bilateral; Z98.1 Arthrodesis status; Z87.01 Personal history of pneumonia (recurrent); Z88.5 Allergy status to narcotic agent
CPT/HCPCS: 36415; 71045; 71260; 74177; 80048; 80053; 83036; 83605; 83735; 83880; 84132; 85025; 85652; 86140; 87040; 93306; 94640; 96365; 96366; 96367; 96375; 96376; 99285